=== PATIENT | male | born 1975 | race Caucasian/White ===

== ENCOUNTER 2016-03-04 13:00 | Observation (INO) | payer MEDICARE ==
[2016-03-04] MEDS ORDERED: FAMOTIDINE 20 MG/2 ML VIAL IV STA (13:44)
[2016-03-04] MEDS ORDERED: METOCLOPRAMIDE 5 MG/ML 2 ML VIAL IVP STA (13:44)
[2016-03-04] MEDS ORDERED: SODIUM CHLORIDE 0.9% 1,000 ML IV STA (13:44)
--- NOTE | 2016-03-04 13:48 | ED ---
General Adult HPI - General Source: patient, RN notes reviewed Mode of arrival: ambulatory Limitations: no limitations <Adriana Whelan - Last Filed: 03/04/16 15:53> <Glenroy Jordan - Last Filed: 03/04/16 15:57> - General Chief complaint: Abdominal Pain Stated complaint: Vomiting Blood, Abd Pain Time Seen by Provider: 03/04/16 13:37 - History of Present Illness Initial comments: 40-year-old male presents to the emergency department with a chief complaint of nausea vomiting with blood. Patient states he was seen here about a month ago for this. They were unable to do an EGD at that times whenever found a cause for the blood was coming from. Patient's old. Patient states she was given follow-up however they had to change his appointment. Patient states that about a week ago he started to vomit again he is having bright red blood with some dark chocolate like vomit. Patient states he has abdominal pain is unable to keep anything down. Patient states he is chronically on pain medication as well he has not had this for about 4 days vomiting. Patient states he has some epigastric abdominal pain. Patient denies any fever chills with this. Patient states he was concerned due to the fact he cannot keep anything down that he should be seen. Patient denies any recent fever, chills, shortness of breath, chest pain, back pain, numbness or tingling, dysuria or hematuria, constipation or diarrhea, headaches or visual changes, or any other current symptoms. (Adriana Whelan) - Related Data Home Medications Medication Instructions Recorded Confirmed Morphine Sulfate ER [Ms Contin] 60 mg PO TID PRN 10/21/13 03/04/16 Folic Acid 0.8 mg PO DAILY 03/04/16 03/04/16 Liquid Iron Supplement 24 ml PO BID 03/04/16 03/04/16 Vitamin B Complex 1 cap PO DAILY 03/04/16 03/04/16 Previous Rx's Medication Instructions Recorded Pantoprazole [Protonix] 40 mg PO BID #60 tablet. 02/07/16 Sucralfate [Carafate] 1 gm PO ACHS #120 tab 02/07/16 Allergies Allergy/AdvReac Type Severity Reaction Status Date / Time No Known Allergies Allergy Verified 03/04/16 13:48 Review of Systems ROS Other: All systems not noted in ROS Statement are negative. <Adriana Whelan - Last Filed: 03/04/16 15:53> ROS Other: All systems not noted in ROS Statement are negative. <Glenroy Jordan - Last Filed: 03/04/16 15:57> ROS Statement: Those systems with pertinent positive or pertinent negative responses have been documented in the HPI. Past Medical History Past Medical History: GI Bleed, Hypertension, Liver Disease, Thyroid Disorder Additional Past Medical History / Comment(s): back, legs and feet pain due to spinal stenosis , pancreatrits History of Any Multi-Drug Resistant Organisms: None Reported Past Surgical History: Appendectomy, Back Surgery Past Anesthesia/Blood Transfusion Reactions: No Reported Reaction Past Psychological History: No Psychological Hx Reported Smoking Status: Current every day smoker Past Alcohol Use History: Heavy Past Drug Use History: None Reported - Past Family History Father Family Medical History: No Reported History <Adriana Whelan - Last Filed: 03/04/16 15:53> General Exam Limitations: no limitations <Adriana Whelan - Last Filed: 03/04/16 15:53> <Glenroy Jordan - Last Filed: 03/04/16 15:57> - General Exam Comments Initial Comments: General: The patient is awake and alert, in no distress, and does not appear acutely ill. Eye: Pupils are equal, round and reactive to light, extra-ocular movements are intact; there is normal conjunctiva bilaterally. No signs of icterus. Ears, nose, mouth and throat: There are moist mucous membranes. Neck: The neck is supple, there is no tenderness. Cardiovascular: There is a regular rate and rhythm. No murmur, rub or gallop is appreciated. Respiratory: Lungs are clear to auscultation, respirations are non-labored, breath sounds are equal. No wheezes, stridor, rales, or rhonchi. Gastrointestinal: Soft, non-distended, non-tender abdomen without masses or organomegaly noted. There is no rebound or guarding present. No CVA tenderness. Bowel sounds are unremarkable. Back: There is no tenderness to palpation in the midline. There is no obvious deformity. No rashes noted. Musculoskeletal: Normal ROM, no tenderness, There is no pedal edema. There is no calf tenderness or swelling. Sensation intact. Pulses equal bilaterally 2+. Neurological: CN II-XII intact, There are no obvious motor or sensory deficits. Coordination appears grossly intact. Speech is normal. Skin: Skin is warm and dry and no rashes or lesions are noted. Psychiatric: Cooperative, appropriate mood & affect, normal judgment. (Adriana Whelan) Course <Adriana Whelan - Last Filed: 03/04/16 15:53> <Glenroy Jordan - Last Filed: 03/04/16 15:57> Vital Signs 03/04/16 03/04/16 13:27 15:29 Temperature 99.4 F 98.3 F Pulse Rate 73 71 Respiratory 20 18 Rate Blood Pressure 114/72 132/85 O2 Sat by Pulse 100 100 Oximetry - Reevaluation(s) Reevaluation #1: 03/04/16 15:19 Patient is requesting pain medication this time. Patient states the vomiting is undergoing concerning to him affect is unable to take his pain medication is really why he is here. (Adriana Whelan) Medical Decision Making - Lab Data Result diagrams: 03/04/16 13:49 03/04/16 13:49 - Radiology Data Radiology results: report reviewed, image reviewed <Adriana Whelan - Last Filed: 03/04/16 15:53> - Lab Data Result diagrams: 03/04/16 13:49 03/04/16 13:49 <Glenroy Jordan - Last Filed: 03/04/16 15:57> - Medical Decision Making 40-year-old male presents emergency Department chief complaint of vomiting up blood. Patient has a history of this. Patient's previous admission was reviewed. At this time the previous admission increases from esophageal varices. At this time patient did present with vomiting up blood. He has had no vomiting here and has had improvement with symptoms. Due to the concern for possible esophageal varices with no confirmation with an EGD at this time we do recommend admission for the patient for continued observation for the vomiting of blood. We'll consult the patient's GI doctor Dr. Smart to evaluate the patient further. Discussed with the patient is in agreement with the plan. ( Adriana Whelan) Patient reevaluated by myself, Dr. Jordan. Patient resting comfortably in bed. Patient does have mild to moderate epigastric tenderness. Patient has started vomiting the past couple of days including blood. Patient was unable to have scope done on recent visit. Last endoscopy was over 2 years ago. Patient will be admitted for monitoring and possible EGD. Gastrology will be consult. Case discussed in detail with Dr. Walters, covering for tab Amos who will admit. (Glenroy Jordan) - Lab Data Lab Results 03/04/16 03/04/16 03/04/16 Range/Units 13:49 13:49 13:49 WBC (3.8-10.6) k/uL RBC (4.30-5.90) m/uL Hgb (13.0-17.5) gm/dL Hct (39.0-53.0) % MCV (80.0-100.0) fL MCH (25.0-35.0) pg MCHC (31.0-37.0) g/dL RDW (11.5-15.5) % Plt Count (150-450) k/uL Neutrophils % % Lymphocytes % % Monocytes % % Eosinophils % % Basophils % % Neutrophils # (1.3-7.7) k/uL Lymphocytes # (1.0-4.8) k/uL Monocytes # (0-1.0) k/uL Eosinophils # (0-0.7) k/uL Basophils # (0-0.2) k/uL PT 12.8 H (9.0-12.0) sec INR 1.3 (<1.1) APTT 25.5 (22.0-30.0) sec Sodium 143 (137-145) mmol/L Potassium 4.1 (3.5-5.1) mmol/L Chloride 106 (98-107) mmol/L Carbon Dioxide 22 (22-30) mmol/L Anion Gap 15 mmol/L BUN 11 (9-20) mg/dL Creatinine 0.82 (0.66-1.25) mg/dL Est GFR (MDRD) Af Amer >60 (>60 ml/min/1.73 sqM) Est GFR (MDRD) Non-Af >60 (>60 ml/min/1.73 sqM) Glucose 205 H (74-99) mg/dL Calcium 9.1 (8.4-10.2) mg/dL Total Bilirubin 1.6 H (0.2-1.3) mg/dL AST 57 (17-59) U/L ALT 39 (21-72) U/L Alkaline Phosphatase 73 (38-126) U/L Total Protein 7.4 (6.3-8.2) g/dL Albumin 3.8 (3.5-5.0) g/dL Amylase 70 (30-110) U/L Lipase 172 (23-300) U/L Urine Color Urine Appearance (Clear) Urine pH (5.0-8.0) Ur Specific [place] (1.001-1.035) Urine Protein (Negative) Urine Glucose (UA) (Negative) Urine Ketones (Negative) Urine Blood (Negative) Urine Nitrate (Negative) Urine Bilirubin (Negative) Urine Urobilinogen (<2.0) mg/dL Ur Leukocyte Esterase (Negative) Blood Type O Negative Blood Type Recheck No Antibody Screen NEGATIVE Spec Expiration Date 03/07/2016 - 234803/04/16 03/04/16 Range/Units 13:49 15:16 WBC 6.1 (3.8-10.6) k/uL RBC 4.05 L (4.30-5.90) m/uL Hgb 13.0 D (13.0-17.5) gm/dL Hct 38.8 L (39.0-53.0) % MCV 95.6 (80.0-100.0) fL MCH 32.1 (25.0-35.0) pg MCHC 33.5 (31.0-37.0) g/dL RDW 13.8 (11.5-15.5) % Plt Count 66 L D (150-450) k/uL Neutrophils % 76 % Lymphocytes % 15 % Monocytes % 5 % Eosinophils % 3 % Basophils % 1 % Neutrophils # 4.6 (1.3-7.7) k/uL Lymphocytes # 0.9 L (1.0-4.8) k/uL Monocytes # 0.3 (0-1.0) k/uL Eosinophils # 0.2 (0-0.7) k/uL Basophils # 0.0 (0-0.2) k/uL PT (9.0-12.0) sec INR (<1.1) APTT (22.0-30.0) sec Sodium (137-145) mmol/L Potassium (3.5-5.1) mmol/L Chloride (98-107) mmol/L Carbon Dioxide (22-30) mmol/L Anion Gap mmol/L BUN (9-20) mg/dL Creatinine (0.66-1.25) mg/dL Est GFR (MDRD) Af Amer (>60 ml/min/1.73 sqM) Est GFR (MDRD) Non-Af (>60 ml/min/1.73 sqM) Glucose (74-99) mg/dL Calcium (8.4-10.2) mg/dL Total Bilirubin (0.2-1.3) mg/dL AST (17-59) U/L ALT (21-72) U/L Alkaline Phosphatase (38-126) U/L Total Protein (6.3-8.2) g/dL Albumin (3.5-5.0) g/dL Amylase (30-110) U/L Lipase (23-300) U/L Urine Color Light Yellow Urine Appearance Clear (Clear) Urine pH 6.5 (5.0-8.0) Ur Specific [place] 1.003 (1.001-1.035) Urine Protein Negative (Negative) Urine Glucose (UA) Negative (Negative) Urine Ketones Negative (Negative) Urine Blood Negative (Negative) Urine Nitrate Negative (Negative) Urine Bilirubin Negative (Negative) Urine Urobilinogen <2.0 (<2.0) mg/dL Ur Leukocyte Esterase Negative (Negative) Blood Type Blood Type Recheck Antibody Screen Spec Expiration Date Disposition Time of Disposition: 15:51 Decision Date: 03/04/16 Decision Time: 15:51 <Adriana Whelan - Last Filed: 03/04/16 15:53> <Glenroy Jordan - Last Filed: 03/04/16 15:57> Clinical Impression: GI bleed, Nausea & vomiting, Chronic pain Disposition: ADMITTED IP TO THIS [facility] Condition: Stable Referrals: Pablo Linn MD [Primary Care Provider] - 1-2 days
[2016-03-04 14:20] LABS: INR 1.3 (<1.1); Partial Thromboplastin Time 25.5 sec (22.0-30.0); Prothrombin Time 12.8 sec (9.0-12.0)
--- NOTE | 2016-03-04 14:25 | XR ---
EXAMINATION TYPE: XR abdomen 2V DATE OF EXAM: 03/04/2016 2:11 PM COMPARISON: NONE INDICATION: Pain, vomiting blood TECHNIQUE: Frontal view abdomen upright and supine abdomen FINDINGS: There is a nonspecific bowel gas pattern. Small bowel gas and colonic bowel gas is present. Psoas mar gins are normal. Splenomegaly may be present. Some prominent liver may also be present. IMPRESSION: 1. Nonspecific abdomen. 2. Hepatosplenomegaly
[2016-03-04 14:28] LABS: ALT 39 U/L (21-72); AST 57 U/L (17-59); Alkaline Phosphatase 73 U/L (38-126); Amylase 70 U/L (30-110); Anion Gap 15 mmol/L; Blood Urea Nitrogen 11 mg/dL (9-20); Calcium 9.1 mg/dL (8.4-10.2); Carbon Dioxide 22 mmol/L (22-30); Chloride 106 mmol/L (98-107); Glucose 205 mg/dL (74-99); Non-African American GFR(MDRD) >60 (>60 ml/min/1.73 sqM); Potassium 4.1 mmol/L (3.5-5.1); Sodium 143 mmol/L (137-145); Total Bilirubin 1.6 mg/dL (0.2-1.3); Total Protein 7.4 g/dL (6.3-8.2)
[2016-03-04 14:29] LABS: Basophils % (A) 1 %; CH 31.8; CHCM 33.4; Eosinophils # (A) 0.2 k/uL (0-0.7); Eosinophils % (A) 3 %; HCT 38.8 % (39.0-53.0); HDW 2.36; Luc # (Auto) 0.08; Luc % (Auto) 1; Lymphocytes # (A) 0.9 k/uL (1.0-4.8); Lymphocytes % (A) 15 %; MCH 32.1 pg (25.0-35.0); MCHC 33.5 g/dL (31.0-37.0); MCV 95.6 fL (80.0-100.0); Mean Platelet Volume 8.6; Monocytes # (A) 0.3 k/uL (0-1.0); Monocytes % (A) 5 %; Neutrophils # (A) 4.6 k/uL (1.3-7.7); Neutrophils % (A) 76 %; RBC 4.05 m/uL (4.30-5.90); RDW 13.8 % (11.5-15.5); WBC 6.1 k/uL (3.8-10.6); WBC (Perox) 6.23
[2016-03-04] MEDS ORDERED: MORPHINE SULFATE 4 MG/ML SYRINGE IV STA (15:18)
[2016-03-04 15:43] LABS: Appearance,Urine Clear (Clear); Bilirubin,Urine Negative (Negative); Glucose,Urine (UA) Negative (Negative); Ketones,Urine Negative (Negative); Leukocyte Esterase,Urine Negative (Negative); Nitrite,Urine Negative (Negative); PH, Urine 6.5 (5.0-8.0); Protein,Urine Negative (Negative); Specific Gravity,Urine 1.003 (1.001-1.035); UA Billing (MACRO vs. MICRO) CHEM; Urobilinogen,Urine <2.0 mg/dL (<2.0)
[2016-03-04] MEDS ORDERED: ONDANSETRON 4 MG/2 ML VIAL IVP PRN (15:51)
[2016-03-04] MEDS ORDERED: NALOXONE 0.4 MG/ML 1 ML VIAL IV PRN (15:51)
[2016-03-04] MEDS: SODIUM CHLORIDE 0.9% 1,000 ML IV SCH (16:24)
[2016-03-04] MEDS: MORPHINE SULFATE ER 60 MG TABLET PO PRN (17:17)
[2016-03-04 18:10] VITALS: BMI 22.1
[2016-03-04] MEDS: SUCRALFATE 1 GM TAB PO SCH ×2 (18:19→20:45)
[2016-03-04] MEDS ORDERED: PANTOPRAZOLE 40 MG TABLET PO SCH (21:00)
[2016-03-05] MEDS: MORPHINE SULFATE ER 60 MG TABLET PO PRN ×3 (01:37→16:52)
[2016-03-05] MEDS: SODIUM CHLORIDE 0.9% 1,000 ML IV SCH ×3 (06:59→23:33)
[2016-03-05] MEDS: SUCRALFATE 1 GM TAB PO SCH (08:00)
[2016-03-05] MEDS: FERROUS SULFATE ORAL ELIXIR 300 MG/5 ML CUP PO SCH ×2 (08:00→16:52)
[2016-03-05] MEDS ORDERED: PANTOPRAZOLE 40 MG/10 ML VIAL IV SCH (09:00)
[2016-03-05 09:09] LABS: Basophils % (A) 1 %; CH 31.6; CHCM 32.8; Eosinophils # (A) 0.2 k/uL (0-0.7); Eosinophils % (A) 5 %; HDW 2.39; Luc # (Auto) 0.07; Luc % (Auto) 3; Lymphocytes # (A) 0.9 k/uL (1.0-4.8); Lymphocytes % (A) 31 %; MCH 31.3 pg (25.0-35.0); MCHC 32.4 g/dL (31.0-37.0); MCV 96.6 fL (80.0-100.0); Mean Platelet Volume 8.9; Monocytes # (A) 0.2 k/uL (0-1.0); Monocytes % (A) 5 %; Neutrophils # (A) 1.6 k/uL (1.3-7.7); Neutrophils % (A) 56 %; RBC 3.52 m/uL (4.30-5.90); RDW 13.5 % (11.5-15.5); WBC 2.9 k/uL (3.8-10.6); WBC (Perox) 3.16
[2016-03-05 09:43] LABS: ALT 44 U/L (21-72); AST 55 U/L (17-59); Alkaline Phosphatase 62 U/L (38-126); Anion Gap 11 mmol/L; Blood Urea Nitrogen 9 mg/dL (9-20); Calcium 8.2 mg/dL (8.4-10.2); Carbon Dioxide 22 mmol/L (22-30); Chloride 111 mmol/L (98-107); Glucose 93 mg/dL (74-99); Non-African American GFR(MDRD) >60 (>60 ml/min/1.73 sqM); Potassium 3.8 mmol/L (3.5-5.1); Sodium 144 mmol/L (137-145); Total Bilirubin 1.9 mg/dL (0.2-1.3); Total Protein 6.2 g/dL (6.3-8.2)
--- NOTE | 2016-03-05 10:54 | P.CONS ---
History of Present Illness - Reason for Consult Consult date: 03/05/16 Abdominal pain hematemesis/coffee-ground Requesting physician: Precious Mchugh - History of Present Illness 40-year-old gentleman with a history of EtOH abuse, pancreatitis, hypertension, nicotine cigarette dependency, alcohol liver disease, cirrhosis with portal hypertension with history of GI bleeding presents with epigastric pain with hematemesis/coffee ground mixed emesis. Denies fever, chills, weight loss. Recently hospitalized one month ago regarding similar symptoms but no EGD was performed secondary to resolution of symptoms and stabilization of hemoglobin. EGD November 2013 show portal gastropathy with no varices. Denies active alcohol intake it's been at least 2 years since his last drink. Hemoglobin 13.0 currently 11. Platelet 54,000. INR 1.3. BUN 9. Creatinine 0.7. A month ago hemoglobin was 11.2, dropped to 6.9 received 2 units of blood and on discharge 02/07/2016 was 9.7. He has been taking Protonix and Carafate. Additionally reports intermittent nausea sour stomach feeling for the last few months. Provided antinausea medications by GI office but ran out a week ago. Over the last week having a few daily episodes of red tinge black emesis exacerbated more so yesterday. No NSAIDs or aspirin. Review of Systems All systems: negative (See HPI) Past Medical History Past Medical History: GI Bleed, Hypertension, Liver Disease, Thyroid Disorder Additional Past Medical History / Comment(s): back, legs and feet pain due to spinal stenosis , pancreatitis, [place] 2009 History of Any Multi-Drug Resistant Organisms: None Reported Past Surgical History: Appendectomy, Back Surgery Past Anesthesia/Blood Transfusion Reactions: No Reported Reaction Past Psychological History: No Psychological Hx Reported Smoking Status: Former smoker Past Alcohol Use History: Heavy Additional Past Alcohol Use History / Comment(s): quit etoh in 2013. quit cigarettes in 02/14, now smoking e-cigs Past Drug Use History: None Reported - Past Family History Father Family Medical History: No Reported History Medications and Allergies Home Medications Medication Instructions Recorded Confirmed Type Morphine Sulfate ER [Ms Contin] 60 mg PO TID PRN 10/21/13 03/04/16 History Folic Acid 0.8 mg PO DAILY 03/04/16 03/04/16 History Liquid Iron Supplement 24 ml PO BID 03/04/16 03/04/16 History Vitamin B Complex 1 cap PO DAILY 03/04/16 03/04/16 History Allergies Allergy/AdvReac Type Severity Reaction Status Date / Time No Known Allergies Allergy Verified 03/04/16 18:11 Physical Exam Vitals: Vital Signs Temp Pulse Pulse Resp BP BP Pulse Ox 03/05/16 06:21 97.3 F L 66 18 114/69 94 L 03/04/16 23:00 97.5 F L 59 L 18 122/77 98 03/04/16 18:05 97.6 F 63 20 129/85 99 03/04/16 17:19 98.0 F 73 18 129/76 99 Intake and Output 03/04/16 03/05/16 03/05/16 22:59 06:59 14:59 Intake Total 1100 Output Total 275 150 Balance -275 950 Intake: IV 1100 Sodium Chloride 0.9% 1, 1100 000 ml @ 100 mls/hr IV . Q10H [facility] Rx#:[id number] Output: Urine 275 150 Other: Voiding Method Urinal Urinal Weight 68.039 kg General appearance: The patient is alert, oriented, in no acute distress. HET: Head is normocephalic and atraumatic. Pupils are equal and reactive. Oropharynx is clear without lesions. Neck: Supple without lymphadenopathy. Trachea midline. Heart: S1 S2. Regular rate and rhythm. Lungs: No crackles or wheezes are heard. Abdomen: Soft, midepigastric tenderness, nondistended with bowel sounds. No peritoneal signs. No palpable organomegaly or masses. Extremities: Normal skin color and turgor. No cyanosis, rash, ulceration, clubbing, or edema. Radial and pedal pulses are 2/4 bilaterally. Neurological: No focal deficits. Strength and sensation are grossly intact. Results CBC & Chem 7: 03/05/16 08:37 03/05/16 08:37 Labs: Abnormal Lab Results - Last 24 Hours (Table) 03/05/16 03/05/16 Range/Units 08:37 08:37 WBC 2.9 L (3.8-10.6) k/uL RBC 3.52 L (4.30-5.90) m/uL Hgb 11.0 L (13.0-17.5) gm/dL Hct 34.0 L (39.0-53.0) % Plt Count 54 L (150-450) k/uL Lymphocytes # 0.9 L (1.0-4.8) k/uL Chloride 111 H (98-107) mmol/L Calcium 8.2 L (8.4-10.2) mg/dL Total Bilirubin 1.9 H (0.2-1.3) mg/dL Total Protein 6.2 L (6.3-8.2) g/dL Albumin 2.9 L (3.5-5.0) g/dL Assessment and Plan Plan: Acute GI bleed with a history of alcohol liver disease portal hypertension, portal gastropathy, thrombocytopenia with remote EtOH abuse. Rule out peptic ulcer disease rule out esophageal varices. Plan: 1. EGD. 2. IV Protonix 40 mg twice daily. Hold Carafate until EGD is completed. 3. Monitor CBC closely. The marketing research coordinator has discussed the risks, benefits and alternative therapies for the above-mentioned procedure and for both sedation/analgesia as well as necessary blood product administration, if indicated, as they pertain to this patient. The patient has indicated understanding and acceptance of the risks and procedures discussed. Thank you for this kind referral and the opportunity to participate in the care of your patient. This consultation was discussed with Dr. Leiva. The impression and plan of care have been directed as dictated.
[2016-03-05] MEDS: FOLIC ACID 1 MG TAB PO SCH (11:19)
[2016-03-05] MEDS: B COMPLEX-VIT C-VIT E-ZINC 1 EACH TAB PO SCH (11:19)
--- NOTE | 2016-03-05 15:07 | P.HPIM ---
History of Present Illness H&P Date: 03/05/16 Chief Complaint: GI bleed This is a 40-year-old male patient of Dr. Sarmad Linn. He has history of alcohol liver cirrhosis with portal hypertension and previous GI bleeding, hypertension and gastritis, pancreatitis. He is also known to Dr. Smart from previous EGDs in the past. This was last performed in 2013 without any evidence off esophageal varices. He states his last alcohol ingestion was January 2016 which time he was admitted for acute GI bleed otherwise he has been without alcohol for 2-1/2 years. He states that he started vomiting blood and was up to half a cup. He denies any alcohol use in the past week. He states he has had increasing nausea lately and did have antiemetic at home. He states he tried to call his GI doctor for refill but did not hear back. He states he has not been able to eat for the past 4 days. He denies any nonsteroidal anti-inflammatory or aspirin use. He presented to [facility] emergency center with the above. Initial hemoglobin was 13 and repeat at 11, platelet count 54, INR 1.3, BUN 9, creatinine 0.7. He was admitted to the [facility] floor and placed on pain medication as well as Zofran for nausea which is been increased every 4 hours, Protonix and IV fluids. Consult requested with animal caretaker and patient is scheduled for EGD tomorrow. He is currently on a clear liquid diet. Review of Systems All systems: negative Constitutional: Denies chills, Denies fever Eyes: denies blurred vision, denies pain Ears, nose, mouth and throat: Denies headache, Denies sore throat Cardiovascular: Denies chest pain, Denies shortness of breath Respiratory: Denies cough Gastrointestinal: Reports abdominal pain, Reports nausea, Reports vomiting, Denies diarrhea Musculoskeletal: Denies myalgias Integumentary: Denies pruritus, Denies rash Neurological: Denies numbness, Denies weakness Psychiatric: Denies anxiety, Denies depression Endocrine: Denies fatigue, Denies weight change Past Medical History Past Medical History: GI Bleed, Hypertension, Liver Disease, Thyroid Disorder Additional Past Medical History / Comment(s): back, legs and feet pain due to spinal stenosis , pancreatitis, [place] 2009 History of Any Multi-Drug Resistant Organisms: None Reported Past Surgical History: Appendectomy, Back Surgery Past Anesthesia/Blood Transfusion Reactions: No Reported Reaction Past Psychological History: No Psychological Hx Reported Smoking Status: Former smoker Past Alcohol Use History: Heavy Additional Past Alcohol Use History / Comment(s): quit etoh in 2013 and had 1 relapse in January 2016. quit cigarettes in 02/14, now smoking e-cigs. He denies any drug use. He is currently disabled since 2009 due to back pain and spinal stenosis. Past Drug Use History: None Reported - Past Family History Father Family Medical History: No Reported History Medications and Allergies Home Medications Medication Instructions Recorded Confirmed Type Morphine Sulfate ER [Ms Contin] 60 mg PO TID PRN 10/21/13 03/04/16 History Folic Acid 0.8 mg PO DAILY 03/04/16 03/04/16 History Liquid Iron Supplement 24 ml PO BID 03/04/16 03/04/16 History Vitamin B Complex 1 cap PO DAILY 03/04/16 03/04/16 History Allergies Allergy/AdvReac Type Severity Reaction Status Date / Time No Known Allergies Allergy Verified 03/04/16 18:11 Physical Exam Vitals: Vital Signs Temp Pulse Pulse Resp BP BP Pulse Ox 03/05/16 06:21 97.3 F L 66 18 114/69 94 L 03/04/16 23:00 97.5 F L 59 L 18 122/77 98 03/04/16 18:05 97.6 F 63 20 129/85 99 03/04/16 17:19 98.0 F 73 18 129/76 99 Intake and Output 03/04/16 03/05/16 03/05/16 22:59 06:59 14:59 Intake Total 1100 Output Total 275 150 300 Balance -275 950 -300 Intake: IV 1100 Sodium Chloride 0.9% 1, 1100 000 ml @ 100 mls/hr IV . Q10H [facility] Rx#:[id number] Output: Urine 275 150 300 Other: Voiding Method Urinal Urinal # Voids 1 Weight 68.039 kg Gen: This is a 30-year-old male. He is sitting up in bed appears to be in no acute distress. HEENT: Head is atraumatic, normocephalic. Pupils equal, round. Sclerae is anicteric. NECK: Supple. No JVD. No lymphadenopathy. No thyromegaly. LUNGS: Clear to auscultation. No wheezes or rhonchi. No intercostal retractions. HEART: Regular rate and rhythm. No murmur. ABDOMEN: Soft. Bowel sounds are present. No masses. Mid epigastric tenderness. EXTREMITIES: No pedal edema. No calf tenderness. NEUROLOGICAL: Patient is awake, alert and oriented x3. Cranial nerves 2 through 12 are grossly intact. Results CBC & Chem 7: 03/05/16 08:37 03/05/16 08:37 Labs: Abnormal Lab Results - Last 24 Hours (Table) 03/05/16 03/05/16 Range/Units 08:37 08:37 WBC 2.9 L (3.8-10.6) k/uL RBC 3.52 L (4.30-5.90) m/uL Hgb 11.0 L (13.0-17.5) gm/dL Hct 34.0 L (39.0-53.0) % Plt Count 54 L (150-450) k/uL Lymphocytes # 0.9 L (1.0-4.8) k/uL Chloride 111 H (98-107) mmol/L Calcium 8.2 L (8.4-10.2) mg/dL Total Bilirubin 1.9 H (0.2-1.3) mg/dL Total Protein 6.2 L (6.3-8.2) g/dL Albumin 2.9 L (3.5-5.0) g/dL Thrombosis Risk Factor Assmnt - DVT/VTE Prophylaxis DVT/VTE Prophylaxis: Mechanical Prophylaxis ordered - Choose All That Apply Each Factor Represents 1 point: Age 41-60 years Thrombosis Risk Factor Assessment Total Risk Factor Score: 1 Thrombosis Risk Factor Assessment Level: Low Risk Assessment and Plan Plan: 1. Acute blood loss anemia secondary to GI bleed most likely upper GI source. Continue clear liquid diet. Continue Zofran for nausea and vomiting increased frequency to every 4 hours. Continue Protonix 40 mg every 12 hours. Consult with GI is appreciated. Patient scheduled for EGD tomorrow 2. Alcoholic liver cirrhosis 3. Recent NSAID gastropathy. 4. History of heavy alcohol use with last relapse early January 2016. No recent alcohol intake. 5. Chronic thrombocytopenia secondary to cirrhosis of the liver. 6. History of pancreatitis in the past currently stable 7. DVT prophylaxis patient's low risk for DVT, early ambulation is recommended , caprini score is 1 8. Coagulopathy secondary to cirrhosis of liver and is currently at 1.5 continue to monitor 9. GI prophylaxis patient will be on Protonix 40 mg twice a day 10. Chronic pain follows with the pain clinic on morphine ER 60 every 8 hours when necessary as an outpatient 11. Pancytopenia with cytopenia due to splenic sequestration from EtOH liver cirrhosis and leukopenia from EtOH bone marrow suppression. Patient will be admitted to the hospital for a minimum of 2 night stay. Discharge plan: Possibly home tomorrow after EGD Impression and plan of care have been directed as dictated by the signing physician. Giovana Kathleen nurse practitioner acting as scribe for signing physician. Time with Patient: Greater than 30
[2016-03-05 16:11] VITALS: RESP 16
[2016-03-05] MEDS: PANTOPRAZOLE 40 MG/10 ML VIAL IV SCH (20:43)
[2016-03-05] MEDS: ONDANSETRON 4 MG/2 ML VIAL IVP PRN (20:47)
[2016-03-06] MEDS: MORPHINE SULFATE ER 60 MG TABLET PO PRN ×3 (01:13→14:21)
[2016-03-06] MEDS: PANTOPRAZOLE 40 MG/10 ML VIAL IV SCH (07:57)
[2016-03-06] MEDS: SODIUM CHLORIDE 0.9% 1,000 ML IV SCH (07:58)
[2016-03-06] MEDS: FERROUS SULFATE ORAL ELIXIR 300 MG/5 ML CUP PO SCH (08:02)
[2016-03-06] MEDS: ONDANSETRON 4 MG/2 ML VIAL IVP PRN (08:06)
[2016-03-06 08:33] VITALS: BP 120/75; PULSE 65; TEMP 97.4
[2016-03-06 09:01] LABS: CH 31.8; CHCM 32.6; HCT 35.3 % (39.0-53.0); HDW 2.46; HGB 11.3 gm/dL (13.0-17.5); MCH 31.4 pg (25.0-35.0); MCHC 32.1 g/dL (31.0-37.0); Mean Platelet Volume 8.8; RDW 13.5 % (11.5-15.5); WBC 2.6 k/uL (3.8-10.6)
[2016-03-06 09:12] LABS: ALT 43 U/L (21-72); AST 59 U/L (17-59); Alkaline Phosphatase 60 U/L (38-126); Anion Gap 12 mmol/L; Blood Urea Nitrogen 8 mg/dL (9-20); Calcium 8.4 mg/dL (8.4-10.2); Carbon Dioxide 22 mmol/L (22-30); Chloride 111 mmol/L (98-107); Glucose 88 mg/dL (74-99); Non-African American GFR(MDRD) >60 (>60 ml/min/1.73 sqM); Potassium 4.1 mmol/L (3.5-5.1); Sodium 145 mmol/L (137-145); Total Bilirubin 1.9 mg/dL (0.2-1.3); Total Protein 6.2 g/dL (6.3-8.2)
[2016-03-06] MEDS ORDERED: LIDOCAINE 1% INJ 10MG/ML (20 ML MDV) ONE (09:29)
[2016-03-06] MEDS ORDERED: PROPOFOL 10 MG/ML 20 ML VIAL IV ONE (09:29)
[2016-03-06] MEDS ORDERED: GLYCOPYRROLATE 0.2 MG/ML 2 ML VIAL ONE (09:29)
[2016-03-06] MEDS ORDERED: IV FLUID CONTINUATION 1,000 ML IV ONE (09:31)
--- NOTE | 2016-03-06 09:45 | P.PCN ---
Date of Procedure: 03/06/16 Procedure(s) Performed: BRIEF HISTORY: Patient is a 40-year-old, pleasant, white male, admitted to the hospital with acute upper GI bleed. He had multiple episodes of maroon colored stools. Last hemoglobin was 7.3 g/dL. He scheduled for an upper endoscopy to evaluate the recent source of upper GI bleed PROCEDURE PERFORMED: Esophagogastroduodenoscopy with variceal ligation PREOPERATIVE DIAGNOSIS: Acute upper GI bleed. IV sedation per anesthesia. PROCEDURE: After informed consent was obtained, the patient was brought into the endoscopy unit. IV conscious sedation was administered by Anesthesia under continuous monitoring. Initially the Olympus GIF-140 video endoscope was inserted into the mouth. Esophagus intubated without any difficulty. It was gradually advanced into the stomach and duodenum and carefully examined. The bulb and the second part of the duodenum appeared normal. The scope at this time was withdrawn to the stomach, adequately insufflated with air, and upon careful examination, mucosa of the antrum, body, cardia and the fundus appeared normal. Mild portal hypertensive gastropathy identified and the fundus of the stomach. The scope was then withdrawn into the esophagus. The GE junction was located at 39 cm from the incisors. There was one esophageal varix identified extending into the GE junction and there was a small brown spot suspicious for recent source of GI bleed but no active bleeding identified. The rest of the esophagus appeared normal. There were no erosions or ulcerations seen and the patient tolerated the procedure well. At this time esophageal variceal ligation equipment was introduced onto the tip of the scope and esophagus reintubated without any difficulty and was gradually advanced into the distal esophagus. The esophageal variceal column located at the GE junction was ligated using suction and another band was also deployed in the distal esophagus. No other varices identified. Patient tolerated the procedure well. IMPRESSION: 1. Grade 1 esophageal varices at the GE junction and distal esophagus status post variceal ligation as described above. 2. Mild portal hypertensive gastropathy.. RECOMMENDATIONS: The findings of this examination were discussed with the patient . He'll be started on clear liquids and diet will be advanced as tolerated. If he remains stable he can be discharged home later today or tomorrow. He was advised to follow up in outpatient basis in 2 weeks.
[2016-03-06] MEDS ORDERED: LACTATED RINGERS 1,000 ML IV SCH (12:22)
[2016-03-06] MEDS: B COMPLEX-VIT C-VIT E-ZINC 1 EACH TAB PO SCH (12:40)
[2016-03-06] MEDS: FOLIC ACID 1 MG TAB PO SCH (12:40)
--- NOTE | 2016-03-06 14:05 | P.DS ---
Providers Date of admission: 03/04/16 15:52 Expected date of discharge: 03/06/16 Attending physician: Precious Mchugh Consults: 03/04/16 15:53 Consult Physician Routine Consulting Provider: Titus Smart Consult Reason/Comments: GI bleed Do you want consulting provider notified?: Yes Primary care physician: [facility] Course: This is a 40-year-old male patient of Dr. Sarmad Linn. He has history of alcohol liver cirrhosis with portal hypertension and previous GI bleeding, hypertension and gastritis, pancreatitis. He is also known to Dr. Smart from previous EGDs in the past. This was last performed in 2013 without any evidence off esophageal varices. He states his last alcohol ingestion was January 2016 which time he was admitted for acute GI bleed otherwise he has been without alcohol for 2-1/2 years. He states that he started vomiting blood and was up to half a cup. He denies any alcohol use in the past week. He states he has had increasing nausea lately and did have antiemetic at home. He states he tried to call his GI doctor for refill but did not hear back. He states he has not been able to eat for the past 4 days. He denies any nonsteroidal anti-inflammatory or aspirin use. He presented to [facility] emergency center with the above. Initial hemoglobin was 13 and repeat at 11, platelet count 54, INR 1.3, BUN 9, creatinine 0.7. He was admitted to the [facility] floor and placed on pain medication as well as Zofran for nausea which is been increased every 4 hours, Protonix and IV fluids. Consult requested with acquisition associate and patient is scheduled for EGD tomorrow. He is currently on a clear liquid diet. 03/06: Patient underwent EGD that showed Grade 1 esophageal varices at the GE junction and distal esophagus status post variceal ligation and mild portal hypertensive gastropathy. Recommendations from Dr. Leiva are clear liquids and diet will be advanced as tolerated. If he remains stable he can be discharged home later today or tomorrow. Repeat hemoglobin is 11.3, white count 2.6 and platelet count 56, total bilirubin 1.9. Patient will be discharged home today in stable condition. Patient will be provided a prescription for Zofran. Patient did request [facility] refill on his morphine and he was instructed to follow -up with his pain clinic. Discharge diagnoses: 1. Acute blood loss anemia secondary to GI bleed most likely due to esophageal varices. 2. Alcoholic liver cirrhosis 3. Recent NSAID gastropathy. 4. History of heavy alcohol use with last relapse early January 2016. No recent alcohol intake. 5. Chronic thrombocytopenia secondary to cirrhosis of the liver. 6. History of pancreatitis in the past currently stable 7. Coagulopathy secondary to cirrhosis of liver and is currently at 1.5 continue to monitor 8. Chronic pain follows with the pain clinic 9. 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 Discharge plan: home Impression and plan of care have been directed as dictated by the signing physician. Giovana Kathleen nurse practitioner acting as scribe for signing physician. Patient Condition at Discharge: Stable Plan - Discharge Summary New Discharge Prescriptions: Ondansetron [Zofran ODT] 4 mg PO Q8HR #60 tab Discharge Medication List Morphine Sulfate ER [Ms Contin] 60 mg PO TID PRN 10/21/13 [History] Pantoprazole [Protonix] 40 mg PO BID #60 tablet. 02/07/16 [Rx] Sucralfate [Carafate] 1 gm PO ACHS #120 tab 02/07/16 [Rx] Folic Acid 0.8 mg PO DAILY 03/04/16 [History] Liquid Iron Supplement 24 ml PO BID 03/04/16 [History] Vitamin B Complex 1 cap PO DAILY 03/04/16 [History] Ondansetron [Zofran ODT] 4 mg PO Q8HR #60 tab 03/06/16 [Rx] Follow up Appointment(s)/Referral(s): Macy Leiva MD [STAFF PHYSICIAN] - 03/24/16 12:45 pm Pablo Linn MD [Primary Care Provider] - 03/13/16 11:00 am ([phone]) Patient Instructions/Handouts: Gastrointestinal Bleeding (DC) Activity/Diet/Wound Care/Special Instructions: Regular, bland diet, advance as tolerated. Discharge Disposition: HOME SELF-CARE
== END 2016-03-06 15:59 | disposition home or self-care (01) ==
LOC: EC 13:00 → 4MS4W 15:52
PROVIDERS: ADMIT Internal Medicine; ATTEND Internal Medicine
DX: K70.30 Alcoholic cirrhosis of liver without ascites (principal); I85.10 Secondary esophageal varices without bleeding; D62 Acute posthemorrhagic anemia; K29.70 Gastritis, unspecified, without bleeding; F10.10 Alcohol abuse, uncomplicated; D69.59 Other secondary thrombocytopenia; D61.818 Other pancytopenia; K92.0 Hematemesis; K76.6 Portal hypertension; D68.4 Acquired coagulation factor deficiency; G89.29 Other chronic pain; D75.9 Disease of blood and blood-forming organs, unspecified; M48.00 Spinal stenosis, site unspecified; F17.290 Nicotine dependence, other tobacco product, uncomplicated; Z79.899 Other long term (current) drug therapy
CPT/HCPCS: 99285; 96374; 96375 ×2; 96361 ×2; 36415; 86900; 86901; 80053 ×3; 82150; 83690; 85025 ×2; 85027; 85610; 85730; 86850; 81003; 87086; 74020; 43244; G0378 ×3; J2270; J2765; J2405 ×2; J2001; J2704; C9113 ×2; 43255; 96376

== ENCOUNTER → 2016-04-22 | Outpatient (CLI) | payer MEDICARE ==
--- NOTE | 2016-04-22 13:20 | MR ---
EXAMINATION TYPE: MR chetan/gilles wo con DATE OF EXAM: 04/22/2016 12:50 PM COMPARISON: NONE HISTORY: Back pain Multiplanar MultiSpin echo imaging of the thoracic spine was performed. There appears to be multilevel disc bulging or protrusions involving the mid and lower cervical spine . Consider dedicated evaluation. Disc spaces: Mild disc bulging is noted at T8-T9 and T9-T10. Is no evidence for disc herniation or fo aidan protrusion. Spinal canal: No evidence for canal stenosis. No intrinsic or extrinsic lesion. Thoracic spinal cord: Thoracic spinal cord is of normal caliber and signal. Paraspinal soft tissues: No evidence for paraspinal mass. No destructive lesions seen. Vertebral segments: No evidence for fracture or bony lesion. IMPRESSION: 1. Mild disc bulging as discussed above. Otherwise unremarkable study. EXAMINATION TYPE: MR chetan/gilles wo con DATE OF EXAM: 04/22/2016 12:50 PM COMPARISON: NONE HISTORY: Back pain Multiplanar, MultiSpin echo imaging of the lumbar spine was performed. L1-L2: There is evidence of mild disc desiccation. Circumferential disc bulge greatest paracentrally and to the left with mild effacement of the ventral thecal sac. Mild left lateral recess stenosis. No evidence for amador herniation or protrusion. L2-L3: Normal disc appearance without desiccation. No herniation, protrusion or disc bulging. No ca nal stenosis is present. Foramina are patent bilaterally. L3-L4: Normal disc appearance without desiccation. No herniation, protrusion or disc bulging. No ca nal stenosis is present. Foramina are patent bilaterally. L4-L5: Moderate disc desiccation seen. Mild posterior central disc herniation with effacement of the ventral thecal sac and right lateral recess stenosis. Mild right-sided foraminal encroachment. L5-S1: Normal disc appearance without desiccation. No herniation, protrusion or disc bulging. No ca nal stenosis is present. Foramina are patent bilaterally. Lumbar segments are intact. No paraspinal masses are identified. Conus medullaris has a normal appe arance. IMPRESSION: 1. Degenerative disc disease as discussed. 2. Disc herniation at L4-5 with mild right lateral recess stenosis and foraminal encroachment. 3. Posterior disc bulging at L1-2 with left lateral recess stenosis as noted.
[2016-04-22 13:55] LABS: Basophils % (A) 1 %; CH 30.9; CHCM 33.5; Eosinophils # (A) 0.2 k/uL (0-0.7); Eosinophils % (A) 4 %; HCT 40.9 % (39.0-53.0); HDW 2.68; HGB 13.7 gm/dL (13.0-17.5); Luc # (Auto) 0.12; Luc % (Auto) 3; Lymphocytes # (A) 1.5 k/uL (1.0-4.8); Lymphocytes % (A) 31 %; MCH 30.9 pg (25.0-35.0); MCHC 33.4 g/dL (31.0-37.0); Monocytes # (A) 0.5 k/uL (0-1.0); Monocytes % (A) 9 %; Neutrophils # (A) 2.6 k/uL (1.3-7.7); Neutrophils % (A) 53 %; RBC 4.43 m/uL (4.30-5.90); WBC 4.8 k/uL (3.8-10.6); WBC (Perox) 5.01
[2016-04-22 14:04] LABS: MCV 92.5 fL (80.0-100.0)
[2016-04-22 14:25] LABS: Manual Review Performed
[2016-04-22 14:26] LABS: ALT 26 U/L (21-72); AST 27 U/L (17-59); Alkaline Phosphatase 63 U/L (38-126); Anion Gap 10 mmol/L; Blood Urea Nitrogen 11 mg/dL (9-20); C Reactive Protein 7.2 mg/L (<10.0); Carbon Dioxide 24 mmol/L (22-30); Chloride 107 mmol/L (98-107); Creatine Kinase 38 U/L (55-170); Glucose 138 mg/dL (74-99); Non-African American GFR(MDRD) >60 (>60 ml/min/1.73 sqM); Potassium 4.6 mmol/L (3.5-5.1); RBC Morphology Normal; Rheumatoid Factor, Qnt <9 IU/mL (<12); Sodium 141 mmol/L (137-145); Total Bilirubin 1.3 mg/dL (0.2-1.3); Total Protein 7.1 g/dL (6.3-8.2)
[2016-04-22 15:12] LABS: Vitamin B12 583 pg/mL (239-931)
[2016-04-22 15:23] LABS: Erythrocyte Sedimentation Rate 14 mm/hr (0-15)
[2016-04-22 20:01] LABS: Treponemal Ab Non-Reactive (Non-Reactive)
[2016-04-22 20:25] LABS: ANA w/Reflex to Titer NEGATIVE (NEGATIVE)
== END | disposition home or self-care (01) ==
LOC: RADMRIMAIN 11:49
PROVIDERS: ATTEND Psychiatry & Neurology Pain Medicine
DX: M51.24 Other intervertebral disc displacement, thoracic region (principal); M48.06 Spinal stenosis, lumbar region; M51.26 Other intervertebral disc displacement, lumbar region; M51.36 Other intervertebral disc degeneration, lumbar region; G61.0 Guillain-Barre syndrome
CPT/HCPCS: 72146; 72148; 80053; 82306; 82550; 82607; 84439; 84443; 84481; 85025; 85652; 86038; 86140; 86225; 86334; 86431; 86780

== ENCOUNTER 2016-05-07 11:01 | Day surgery (SDC) | payer MEDICARE ==
[2016-05-07] MEDS ORDERED: LACTATED RINGERS 1,000 ML IV SCH ×2 (11:49)
[2016-05-07 11:55] VITALS: RESP 16; TEMP 98.8
[2016-05-07] MEDS ORDERED: LIDOCAINE 1% 20 ML VIAL (10MG/ML) FOR IV START INTRADERMA ONE (12:04)
[2016-05-07 12:14] LABS: Glucose,Whole Blood 136 mg/dL (75-99)
[2016-05-07] MEDS ORDERED: PROPOFOL 10 MG/ML 20 ML VIAL IV ONE (12:14)
[2016-05-07] MEDS ORDERED: LIDOCAINE 1% INJ 10MG/ML (20 ML MDV) ONE (12:14)
--- NOTE | 2016-05-07 12:28 | P.PCN ---
Date of Procedure: 05/07/16 Procedure(s) Performed: BRIEF HISTORY: Patient is a 40-year-old, pleasant, white male, scheduled for an upper endoscopy as a part of his follow-up of esophageal varices. He was admitted hospital with acute upper GI bleed in March of this year and had EGD done that showed small distal esophageal varices which were ligated. He scheduled for follow-up upper endoscopy today. PROCEDURE PERFORMED: Esophagogastroduodenoscopy with variceal ligation. PREOPERATIVE DIAGNOSIS: Follow-up esophageal varices. IV sedation per anesthesia. PROCEDURE: After informed consent was obtained, the patient was brought into the endoscopy unit. IV conscious sedation was administered by Anesthesia under continuous monitoring. Initially the Olympus GIF-140 video endoscope was inserted into the mouth. Esophagus intubated without any difficulty. It was gradually advanced into the stomach and duodenum and carefully examined. The bulb and the second part of the duodenum appeared normal. The scope at this time was withdrawn to the stomach, adequately insufflated with air, and upon careful examination, mucosa of the antrum, body, cardia appeared normal. In the fundus of the stomach where changes consistent with mild to moderate portal hypertensive gastropathy. No gastric varices seen. The scope was then withdrawn into the esophagus. The GE junction was located at 39 cm from the incisors. There were grade 1-2 distal esophageal varices identified with no active bleeding. The scope was removed and the variceal ligation equipment was introduced the tip of the scope. The esophagus intubated without any difficulty he was gradually advanced into the distal esophagus and using suction total of 3 bands were deployed in the distal esophageal varices. The rest of the esophagus appeared normal. There were no erosions or ulcerations seen and the patient tolerated the procedure well. IMPRESSION: 1. Grade 1 distal esophageal varices status post variceal ligation as described above. 2. Mild portal hypertensive gastropathy. RECOMMENDATIONS: The findings of this examination were discussed with the patient as well as his family. He will continue with his current medications and will plan a repeat upper endoscopy in 6 months.
[2016-05-07] MEDS ORDERED: HYDROmorphone 1 MG/ML 1 ML SYRINGE IVP STA (13:05)
[2016-05-07 13:25] VITALS: BP 112/83; PULSE 88
== END 2016-05-07 14:05 | disposition home or self-care (01) ==
LOC: ORWHC2ENDO 11:01
PROVIDERS: ATTEND Internal Medicine Gastroenterology
DX: I85.00 Esophageal varices without bleeding (principal); K21.9 Gastro-esophageal reflux disease without esophagitis; F17.200 Nicotine dependence, unspecified, uncomplicated; Z79.899 Other long term (current) drug therapy
CPT/HCPCS: 43244; J2001; J1170; J2704

== ENCOUNTER 2017-01-16 11:06 | Day surgery (SDC) | payer MEDICARE ==
[2017-01-15 08:53] VITALS: BMI 23.3
[~2017-01-16 11:06] MED LIST: LACTATED RINGERS 1,000 ML IV SCH; LIDOCAINE 1% 20 ML VIAL (10MG/ML) FOR IV START INTRADERMA PRN
[2017-01-16 11:40] VITALS: RESP 16; TEMP 98.4
[2017-01-16] MEDS ORDERED: LIDOCAINE 1% INJ 10MG/ML (20 ML MDV) ONE (12:21)
[2017-01-16] MEDS ORDERED: PROPOFOL 10 MG/ML 20 ML VIAL IV ONE (12:21)
--- NOTE | 2017-01-16 12:29 | P.PCN ---
Date of Procedure: 01/16/17 Procedure(s) Performed: BRIEF HISTORY: Patient is a 41-year-old, pleasant, white male with history of alcohol cirrhosis of the liver and previous history of esophageal variceal bleeding is scheduled for an upper endoscopy for a variceal ligation .has last upper endoscopy was done in April 2016 and was noted to have small esophageal varices that we ligated.. PROCEDURE PERFORMED: Esophagogastroduodenoscopy. PREOPERATIVE DIAGNOSIS: Follow-up esophageal varices. IV sedation per anesthesia. PROCEDURE: After informed consent was obtained, the patient was brought into the endoscopy unit. IV sedation was administered by Anesthesia under continuous monitoring. Initially the Olympus GIF-140 video endoscope was inserted into the mouth. Esophagus intubated without any difficulty. It was gradually advanced into the stomach and duodenum and carefully examined. The bulb and the second part of the duodenum appeared normal. The scope at this time was withdrawn to the stomach, adequately insufflated with air, and upon careful examination, mucosa of the antrum, body, cardia and the fundusshowed changes consistent with mild to moderate portal hypertensive gastropathy. The scope was then withdrawn into the esophagus.very small distal esophageal varices seen. Ligation was not performed. The GE junction was located at 39 cm from the incisors. The esophagus appeared normal. There were no erosions or ulcerations seen and the patient tolerated the procedure well. IMPRESSION: 1.Very small distal esophageal varices. 2.Portal hypertensive gastropathy. RECOMMENDATIONS: The findings of this examination were discussed with the patient as well as his family. he will have a repeat upper endoscopy in 1 year.
[2017-01-16 12:58] VITALS: BP 117/81; PULSE 82
== END 2017-01-16 13:10 | disposition home or self-care (01) ==
LOC: ORWHC2ENDO 11:06
PROVIDERS: ATTEND Internal Medicine Gastroenterology
DX: K70.31 Alcoholic cirrhosis of liver with ascites (principal); K31.89 Other diseases of stomach and duodenum; K76.6 Portal hypertension; K21.9 Gastro-esophageal reflux disease without esophagitis; K86.1 Other chronic pancreatitis; Z87.19 Personal history of other diseases of the digestive system; K86.81 Exocrine pancreatic insufficiency; I10 Essential (primary) hypertension; F17.200 Nicotine dependence, unspecified, uncomplicated; E07.9 Disorder of thyroid, unspecified; Z79.891 Long term (current) use of opiate analgesic; Z79.899 Other long term (current) drug therapy
CPT/HCPCS: 43235; J2001; J2704

== ENCOUNTER 2017-03-05 12:09 | Inpatient (IN) | payer MEDICARE ==
[2017-03-05] MEDS ORDERED: MORPHINE SULFATE 5 MG/ML SYRINGE IVP STA (12:15)
[2017-03-05] MEDS: SODIUM CHLORIDE 0.9% 1,000 ML IV SCH ×3 (12:22→21:50)
--- NOTE | 2017-03-05 12:31 | ED ---
General Adult HPI - General Stated complaint: Syncope Time Seen by Provider: 03/05/17 12:13 Source: patient, EMS, RN notes reviewed, old records reviewed - History of Present Illness Initial comments: 41-year-old male presented as transfer from outside facility for evaluation of multiple lab abnormalities. These laboratory analysis were found after the patient presented to the emergency department with syncopal episode and fall. Patient reported to previous ER physician that he was uncertain when he fell, he states that he tripped when I asked him about the fall, hitting his head and blacking out. He was unconscious for minutes. He has past medical history of liver cirrhosis secondary to chronic alcohol abuse as well as esophageal varices and chronic pancreatitis. In addition to headache injury and headache is complaining of abdominal pain. No fever. No chest pain. Patient does report mild cough. Denies vomiting or diarrhea. Patient was sent for evaluation of electrolyte abnormalities and gastroenterology evaluation. - Related Data Home Medications Medication Instructions Recorded Confirmed Morphine Sulfate ER [Ms Contin] 60 mg PO TID PRN 10/21/13 01/16/17 Vitamin B Complex 1 cap PO DAILY 03/04/16 01/16/17 Levothyroxine Sodium [Synthroid] 25 mcg PO DAILY 05/07/16 01/16/17 Ascorbic Acid [Vitamin C] 500 mg PO DAILY 01/02/17 01/16/17 Pantoprazole Sodium [Protonix] 20 mg PO BID 01/02/17 01/16/17 Ferrous Sulfate [Feosol] 325 mg PO DAILY 01/15/17 01/16/17 Furosemide [Lasix] 20 mg PO BID 01/15/17 01/16/17 Spironolactone [Aldactone] 25 mg PO BID 01/15/17 01/16/17 Sucralfate [Carafate] 1 gm PO QID 01/15/17 01/16/17 Allergies Allergy/AdvReac Type Severity Reaction Status Date / Time No Known Allergies Allergy Verified 03/05/17 12:26 Review of Systems ROS Statement: Those systems with pertinent positive or pertinent negative responses have been documented in the HPI. ROS Other: All systems not noted in ROS Statement are negative. Past Medical History Past Medical History: GERD/Reflux, GI Bleed, Hypertension, Liver Disease, Thyroid Disorder Additional Past Medical History / Comment(s): back, legs and feet pain due to spinal stenosis , pancreatitis, [employer] 2010, DENIES CHF BUT DOES RETAIN FLUID History of Any Multi-Drug Resistant Organisms: None Reported Past Surgical History: Appendectomy, Back Surgery Additional Past Surgical History / Comment(s): RIGHT THUMB SURGERY , EGD Past Anesthesia/Blood Transfusion Reactions: No Reported Reaction Smoking Status: Current every day smoker - Past Family History Father Family Medical History: No Reported History Mother Family Medical History: No Reported History General Exam General appearance: alert, in no apparent distress Eye exam: Present: normal appearance, PERRL, EOMI ENT exam: Present: normal exam Neck exam: Present: normal inspection. Absent: tenderness, meningismus Respiratory exam: Present: normal lung sounds bilaterally. Absent: respiratory distress, wheezes Cardiovascular Exam: Present: regular rate, normal rhythm GI/Abdominal exam: Present: distended, tenderness, guarding Extremities exam: Present: other. Absent: pedal edema, calf tenderness Neurological exam: Present: alert, oriented X3, CN II-XII intact. Absent: motor sensory deficit Psychiatric exam: Present: normal affect, normal mood Skin exam: Present: warm, dry (Severe lower extremity dry skin), pallor. Absent : cyanosis, diaphoretic Medical Decision Making - Medical Decision Making 41-year-old male presenting as a transfer patient status post fall. Patient transferred for M abnormalities and gastroenterology evaluation. Head CT was reviewed, negative for intracranial hemorrhage, CT abdomen and pelvis showed liver cirrhosis, concern for sclerosing cholangitis, esophageal varices, and chronic pancreatitis. Laboratory studies revealed lactic acid of 3.9, magnesium of 0.6, platelet count of 17, hemoglobin 12.4, white blood cell count 4.2, sodium 128. Potassium 3.0, calcium 6.9 ammonia 74, lipase 123. Patient received replacement of potassium, calcium, and magnesium as well as IV hydration prior to transfer. Patient will be admitted for electrolyte replacement, rehydration, and gastroenterology evaluation Disposition Clinical Impression: Dehydration, Lactic acidosis, Hypomagnesemia, Hypokalemia, Hypocalcemia, Chronic pancreatitis Disposition: ADMITTED IP TO THIS HOSP Condition: Stable Referrals: Pablo Linn MD [Primary Care Provider] - 1-2 days Time of Disposition: 12:31 Decision to Admit Reason: Admit from [facility]
[2017-03-05] MEDS ORDERED: HYDROmorphone 1 MG/ML 1 ML SYRINGE IVP PRN (13:08)
[2017-03-05] MEDS ORDERED: NALOXONE 0.4 MG/ML 1 ML VIAL IV PRN (13:08)
[2017-03-05 13:57] LABS: Basophils % (A) 0 %; Eosinophils % (A) 2 %; HCT 34.6 % (39.0-53.0); HGB 11.3 gm/dL (13.0-17.5); Lymphocytes # (A) 0.3 k/uL (1.0-4.8); Lymphocytes % (A) 11 %; MCH 33.7 pg (25.0-35.0); MCHC 32.7 g/dL (31.0-37.0); MCV 103.1 fL (80.0-100.0); Macrocytosis Slight; Mean Platelet Volume 10.8; Monocytes # (A) 0.2 k/uL (0-1.0); Monocytes % (A) 9 %; Neutrophils # (A) 1.8 k/uL (1.3-7.7); Neutrophils % (A) 76 %; RBC 3.35 m/uL (4.30-5.90); RDW 15.2 % (11.5-15.5); WBC 2.4 k/uL (3.8-10.6)
[2017-03-05 14:03] LABS: ALT 46 U/L (21-72); AST 145 U/L (17-59); Albumin 2.8 g/dL (3.5-5.0); Alkaline Phosphatase 112 U/L (38-126); Anion Gap 8 mmol/L; Blood Urea Nitrogen 12 mg/dL (9-20); Carbon Dioxide 26 mmol/L (22-30); Chloride 102 mmol/L (98-107); Glucose 112 mg/dL (74-99); Lipase 205 U/L (23-300); Magnesium 1.7 mg/dL (1.6-2.3); Potassium 3.5 mmol/L (3.5-5.1); Sodium 136 mmol/L (137-145); Total Bilirubin 6.9 mg/dL (0.2-1.3); Total Protein 6.3 g/dL (6.3-8.2)
[2017-03-05 14:24] LABS: Platelet Count 11 k/uL (150-450)
[2017-03-05] MEDS: HYDROmorphone 1 MG/ML 1 ML SYRINGE IVP PRN (20:25)
[2017-03-05] MEDS: POTASSIUM CHLORIDE ER 20 MEQ TAB.ER PO SCH (20:30)
[2017-03-05] MEDS: SUCRALFATE 1 GM TAB PO SCH (21:00)
[2017-03-06] MEDS: HYDROmorphone 1 MG/ML 1 ML SYRINGE IVP PRN ×3 (00:05→06:30)
[2017-03-06] MEDS: SODIUM CHLORIDE 0.9% 1,000 ML IV SCH ×3 (00:07→15:48)
[2017-03-06] MEDS: PANTOPRAZOLE 40 MG TABLET PO SCH ×2 (06:23→16:19)
[2017-03-06] MEDS: LEVOTHYROXINE 25 MCG TAB PO SCH (06:23)
[2017-03-06 06:42] LABS: Basophils % (A) 1 %; Eosinophils # (A) 0.1 k/uL (0-0.7); Eosinophils % (A) 2 %; HCT 34.3 % (39.0-53.0); HGB 10.9 gm/dL (13.0-17.5); Lymphocytes # (A) 0.6 k/uL (1.0-4.8); Lymphocytes % (A) 19 %; MCH 33.2 pg (25.0-35.0); MCHC 31.8 g/dL (31.0-37.0); MCV 104.3 fL (80.0-100.0); Macrocytosis Moderate; Mean Platelet Volume 9.8; Monocytes # (A) 0.2 k/uL (0-1.0); Monocytes % (A) 8 %; Neutrophils # (A) 1.9 k/uL (1.3-7.7); Neutrophils % (A) 68 %; RBC 3.29 m/uL (4.30-5.90); RDW 15.4 % (11.5-15.5); WBC 2.9 k/uL (3.8-10.6)
[2017-03-06 06:43] LABS: Platelet Count 12 k/uL (150-450)
[2017-03-06 06:52] LABS: ALT 42 U/L (21-72); Blood Urea Nitrogen 8 mg/dL (9-20); Carbon Dioxide 20 mmol/L (22-30); Chloride 110 mmol/L (98-107); Glucose 79 mg/dL (74-99); Magnesium 1.4 mg/dL (1.6-2.3)
[2017-03-06 07:16] LABS: AST 136 U/L (17-59); Albumin 2.7 g/dL (3.5-5.0); Alkaline Phosphatase 105 U/L (38-126); Anion Gap 9 mmol/L; Potassium 3.5 mmol/L (3.5-5.1); Sodium 139 mmol/L (137-145); Total Bilirubin 6.9 mg/dL (0.2-1.3)
[2017-03-06 07:25] LABS: Calcium 6.5 mg/dL (8.4-10.2)
[2017-03-06] MEDS ORDERED: PANTOPRAZOLE 40 MG TABLET PO SCH (07:30)
[2017-03-06] MEDS: MAGNESIUM SULFATE-D5W PMX 1 GM in DEXTROSE/WATER 1 100ML.BAG IVPB SCH ×2 (08:32→09:42)
[2017-03-06] MEDS: FERROUS SULFATE 325 MG TAB PO SCH (08:32)
[2017-03-06] MEDS: B COMPLEX-VIT C-VIT E-ZINC 1 EACH TAB PO SCH (08:32)
[2017-03-06] MEDS: ASCORBIC ACID 500 MG TAB PO SCH (08:32)
[2017-03-06] MEDS: SUCRALFATE 1 GM TAB PO SCH ×4 (08:32→21:48)
[2017-03-06] MEDS: MAGNESIUM OXIDE 400 MG TAB PO SCH (08:32)
[2017-03-06] MEDS: POTASSIUM CHLORIDE ER 20 MEQ TAB.ER PO SCH ×2 (08:32→21:49)
[2017-03-06] MEDS: PROPRANOLOL 10 MG TAB PO SCH ×3 (08:32→21:49)
[2017-03-06] MEDS ORDERED: HYDROmorphone 2 MG/ML 1 ML SYRINGE IVP PRN ×2 (09:05→09:13)
--- NOTE | 2017-03-06 09:11 | P.HPIM ---
History of Present Illness H&P Date: 03/05/17 This is a 40-year-old male patient of Dr. Sarmad Linn. He has history of alcohol liver cirrhosis with portal hypertension and previous GI bleeding, hypertension and gastritis, pancreatitis. He is also known to Dr. Smart from previous EGDs in the past. This was last performed in 01/16/2017 with small distal esophageal varices. He states his last alcohol ingestion was 22 February 2017 . He was admitted for acute GI bleed in jan 2016 and mar 2016. He had another episode of coffee-ground emesis 2 weeks ago and was admitted in the ICU. He denies any alcohol use in the past week but did drink 2 week ago. He denies any nonsteroidal anti-inflammatory or aspirin use. He presented to [facility] emergency center as transfer from outside facility for evaluation of abnormal labs. According to the patient he was feeling unwell for the past 1 month with abdominal pain and muscle cramps. He stood up from the bed use the restroom and hit his head to the door of the bathroom. He does not recall the event that led to head injury. Mother states that patient had a seizure and lost his consciousness with the event lasted for 3-5 minutes. He was transferred here to [facility] for evaluation of abnormal labs, sclerosing cholangitis seen on the computed tomography scan, significant abdominal pain and head injury. Magnesium and potassium was repleted and according to the current labs patient's potassium is 3.5 and mag is 1.7. He has increased liver function testing that has worsened since his last admission to 6.9 and AST of 145. CBC suggestive platelet of 11,000. He denies any recent GI bleed but did have an episode of Coffee-ground emesis 2 weeks ago, denies melena. He has his last endoscopy done [address] Bowie and was told that it was normal. His last alcohol intake was 2 weeks ago. Patient continues to drink 2 of 12-16 ounces of hard liquor on and off. He said he had multiple relapses but quit officially in 2013. He is able to mobilize without any difficulty but can only walk to his car. His activities are restricted to driving his daughter to school and going to his appointments. He sees a pain specialist who has him on morphine 60 extended release 3 times a day which is not managing his abdominal pain. He feels Dilaudid cuts his pain. Abdominal pain is diffuse in nature, worse in the epigastric area radiating to his flank, chest and to his jaw. Patient also endorses muscle cramps and back pain from degenerative disc disease. Review of Systems Constitutional: Reports anorexia, Reports fatigue, Reports poor appetite, Denies chronic headaches, Denies fever Eyes: denies blurred vision, denies diplopia, denies dry eye Ears, nose, mouth and throat: Denies post-nasal drip, Denies sinus pain, Denies swelling in mouth, Denies swelling in throat Cardiovascular: Denies chest pain, Denies decreased exercise tolerance, Denies dyspnea on exertion, Denies high blood pressure, Denies irregular heart beat, Denies leg edema, Denies lightheadedness, Denies shortness of breath Respiratory: Denies congestion, Denies cough, Denies cough with sputum, Denies dyspnea, Denies home oxygen, Denies sleep apnea, Denies wheezing Gastrointestinal: Reports abdominal pain, Reports belching, Reports bloating, Reports change in bowel habits, Reports coffee ground emesis (multiple episodes of diarrhea), Reports early satiety, Reports heartburn, Reports loss of appetite , Reports nausea, Denies BRBPR, Denies hematemesis, Denies hematochezia, Denies vomiting Genitourinary: Reports flank pain, Denies dysuria, Denies hematuria, Denies polyuria, Denies urinary frequency Musculoskeletal: Reports frequent falls, Reports gait dysfunction, Reports low back pain, Reports muscle cramps, Reports muscle weakness Musculoskeletal: absent: ankle stiffness, ankle swelling, foot pain, hand pain, hip pain, knee pain, shoulder pain Integumentary: Denies brittle nails, Denies change in hair/nails, Denies growths , Denies striae, Denies wounds Neurological: Reports numbness, Reports paresthesias, Reports tingling, Reports weakness, Denies aphasia, Denies ataxia, Denies balance difficulties, Denies change in mentation, Denies change in speech, Denies confusion, Denies convulsions, Denies paralysis, Denies visual changes Psychiatric: Reports change in appetite, Reports change in sleep habits, Reports sadness/tearfulness Endocrine: Reports fatigue Past Medical History Past Medical History: GERD/Reflux, GI Bleed, Hypertension, Liver Disease, Thyroid Disorder Additional Past Medical History / Comment(s): Liver cirrhosis, portal htn, ETOH abuse, esophageal varicies, upper GI bleed, chronic thrombocytopenia, coagulopathy, pancytopenia, ascities, spinal stenosis: back/leg and feet pain, DDD, chronic back pain, neuropathy bilateral legs/feet, falls, bronchitisi, past L rib fractures after fall off ladder, 2009 [place], History of Any Multi-Drug Resistant Organisms: None Reported Past Surgical History: Appendectomy, Joint Replacement Additional Past Surgical History / Comment(s): EGDs with last one done 01/16/17 , paracentesis, back injections, R thumb reattachment, circumcism. Past Anesthesia/Blood Transfusion Reactions: No Reported Reaction Additional Past Anesthesia/Blood Transfusion Reaction / Comment(s): Pt has received blood without reaction. Smoking Status: Current every day smoker - Past Family History Father Family Medical History: No Reported History Additional Family Medical History / Comment(s): Pt does not know his father's medical hx. Mother Family Medical History: No Reported History Additional Family Medical History / Comment(s): Mother is healthy. Medications and Allergies Home Medications Medication Instructions Recorded Confirmed Type Vitamin B Complex 1 cap PO DAILY 03/04/16 03/05/17 History Levothyroxine Sodium [Synthroid] 25 mcg PO DAILY 05/07/16 03/05/17 History Ascorbic Acid [Vitamin C] 500 mg PO DAILY 01/02/17 03/05/17 History Pantoprazole Sodium [Protonix] 20 mg PO BID 01/02/17 03/05/17 History Ferrous Sulfate [Feosol] 325 mg PO DAILY 01/15/17 03/05/17 History Sucralfate [Carafate] 1 gm PO QID 01/15/17 03/05/17 History Magnesium 200 mg PO DAILY 03/05/17 03/05/17 History Multivitamin [Men's Multi-Vitamin] 1 tab PO DAILY 03/05/17 03/05/17 History Potassium Chloride [Klor-Con 20] 20 meq PO BID 03/05/17 03/05/17 History Allergies Allergy/AdvReac Type Severity Reaction Status Date / Time No Known Allergies Allergy Verified 03/05/17 12:26 Physical Exam Vitals: Vital Signs Temp Pulse Resp BP Pulse Ox 03/05/17 18:24 99.2 F 88 14 117/73 96 03/05/17 16:00 80 18 126/93 98 03/05/17 13:30 89 16 137/89 96 03/05/17 12:22 99.8 F H 98 18 127/69 97 Intake and Output 03/05/17 03/05/17 03/05/17 06:59 14:59 22:59 Other: Weight 70.307 kg Patient Weight 03/06/17 06:59 Weight 70.307 kg - Constitutional General appearance: average body habitus, cooperative, severe distress - EENT Eyes: EOMI, PERRLA, no photophobia, poor dentition, no ptosis, scleral icterus ENT: hearing grossly normal, normal oropharynx Ears: bilateral: normal - Neck Neck: lymphadenopathy Carotids: bilateral: upstroke normal - Respiratory Respiratory: bilateral: CTA, negative: diminished, dullness, rales, rhonchi, wheezing - Cardiovascular Rhythm: regular Heart sounds: normal: S1, S2 Abnormal Heart Sounds: no systolic murmur, no diastolic murmur, no rub, no click - Gastrointestinal General gastrointestinal: decreased bowel sounds, distended, soft, tenderness Localized gastrointestinal: tender: diffuse, epigastric periumbilical (worse), guarding: diffuse - Integumentary Integumentary: no cyanotic, jaundiced, rash (left frontal hematoma and foot bruise ont he dorasal aspect of the left foot ), no ulcer - Neurologic Neurologic: CNII-XII intact - Musculoskeletal Musculoskeletal: generalized weakness - Psychiatric Psychiatric: A&O x's 3, appropriate affect Results CBC & Chem 7: 03/06/17 06:14 03/06/17 06:14 Labs: Abnormal Lab Results - Last 24 Hours (Table) 03/05/17 03/05/17 Range/Units 13:32 13:32 WBC 2.4 L (3.8-10.6) k/uL RBC 3.35 L (4.30-5.90) m/uL Hgb 11.3 L (13.0-17.5) gm/dL Hct 34.6 L (39.0-53.0) % MCV 103.1 H (80.0-100.0) fL Plt Count 11 L* (150-450) k/uL Lymphocytes # 0.3 L (1.0-4.8) k/uL Sodium 136 L (137-145) mmol/L Glucose 112 H (74-99) mg/dL Calcium 7.0 L (8.4-10.2) mg/dL Total Bilirubin 6.9 H (0.2-1.3) mg/dL AST 145 H (17-59) U/L Albumin 2.8 L (3.5-5.0) g/dL Thrombosis Risk Factor Assmnt - DVT/VTE Prophylaxis DVT/VTE Prophylaxis: Pharmacologic Prophylaxis ordered, Contraindicated - See note (low platelets) - Choose All That Apply Any of the Below Risk Factors Present?: Yes Each Factor Represents 1 point: Age 41-60 years Other Risk Factors: No Other congenital or acquired thrombophilia - If yes, enter type in comment: No Thrombosis Risk Factor Assessment Total Risk Factor Score: 1 Thrombosis Risk Factor Assessment Level: Low Risk Assessment and Plan Plan: 1. Fall likely mechanical with syncope. Seizure cannot be ruled out . Continue fall precautions and seizure precaution. CT head negative for any acute bleed. Patient denies any headache. He does not recall any incidents. He did have documented electrolyte abnormality that could contribute to his presentation, 2.Hyperbilirubinemia Abdominal pain worse in epigastric area. with increased LFT. Sclerosing cholangitis on CT report. Continue Zofran for nausea and vomiting increased frequency to every 4 hours. Continue Protonix 40 mg every 12 hours. Consult with GI 3. Alcoholic liver cirrhosis 4. History of heavy alcohol use with last relapse early January 2017. Denies recent alcohol intake 5. Chronic thrombocytopenia secondary to cirrhosis of the liver. Platelet 11. No transfusionindicated unless patient to undergo any procedure 6. History of pancreatitis in the past currently stable 7. DVT prophylaxis - SCDs, no heparin due to low platelets 8. Coagulopathy secondary to cirrhosis of liver and is currently at 1.5 continue to monitor 9. GI prophylaxis patient will be on Protonix 40 mg twice a day 10. Acute on chronic pain follows with the pain clinic on morphine ER 60 every 8 hours when necessary as an outpatient. dilaudid 1 mg q3 hr 11. Pancytopenia with cytopenia due to splenic sequestration from EtOH liver cirrhosis and leukopenia from EtOH bone marrow suppression. 12. Hypomagnesia/ hypokalemia - repleted 13. Frontal scalp hematoma, stable Patient will be admitted to the hospital for a minimum of 2 night stay. Discharge plan: Possibly home tomorrow after EGD
[2017-03-06] MEDS ORDERED: MORPHINE SULFATE ER 60 MG TABLET PO SCH (09:15)
[2017-03-06] MEDS: CALCIUM CARB-VIT D 500MG-200UN 1 EACH TAB PO SCH ×2 (12:14→16:19)
[2017-03-06] MEDS: MULTIVITAMINS, THERA 1 EACH TAB PO SCH (12:14)
--- NOTE | 2017-03-06 12:22 | P.PN ---
<Giovana Kathleen A - Last Filed: 03/06/17 12:51> Subjective Progress Note Date: 03/06/17 This is a 40-year-old male patient of Dr. Sarmad Linn. He has history of alcohol liver cirrhosis with portal hypertension and previous GI bleeding, hypertension and gastritis, pancreatitis. He is also known to Dr. Smart from previous EGDs in the past. This was last performed in 01/16/2017 with small distal esophageal varices. He states his last alcohol ingestion was 22 February 2017 . He was admitted for acute GI bleed in jan 2016 and mar 2016. He had another episode of coffee-ground emesis 2 weeks ago and was admitted in the ICU. He denies any alcohol use in the past week but did drink 2 week ago. He denies any nonsteroidal anti-inflammatory or aspirin use. He presented to [facility] emergency center as transfer from outside facility for evaluation of abnormal labs. According to the patient he was feeling unwell for the past 1 month with abdominal pain and muscle cramps. He stood up from the bed use the restroom and hit his head to the door of the bathroom. He does not recall the event that led to head injury. Mother states that patient had a seizure and lost his consciousness with the event lasted for 3-5 minutes. He was transferred here to [facility] for evaluation of abnormal labs, sclerosing cholangitis seen on the computed tomography scan, significant abdominal pain and head injury. Magnesium and potassium was repleted and according to the current labs patient's potassium is 3.5 and mag is 1.7. He has increased liver function testing that has worsened since his last admission to 6.9 and AST of 145. CBC suggestive platelet of 11,000. He denies any recent GI bleed but did have an episode of Coffee-ground emesis 2 weeks ago, denies melena. He has his last endoscopy done [address] Bowie and was told that it was normal. His last alcohol intake was 2 weeks ago. Patient continues to drink 2 of 12-16 ounces of hard liquor on and off. He said he had multiple relapses but quit officially in 2013. He is able to mobilize without any difficulty but can only walk to his car. His activities are restricted to driving his daughter to school and going to his appointments. He sees a pain specialist who has him on morphine 60 extended release 3 times a day which is not managing his abdominal pain. He feels Dilaudid cuts his pain. Abdominal pain is diffuse in nature, worse in the epigastric area radiating to his flank, chest and to his jaw. Patient also endorses muscle cramps and back pain from degenerative disc disease. 03/06: Patient states that he is on MS Contin 60 mg 3 times daily at home. This will be resumed but following this pharmacy checked that this has not been filled by his pharmacy. [facility] was checked and patient has not received any prescriptions for morphine. Patient was started on Dilaudid 0.5 mg IV as needed. Dietitian met with the patient and it appeared he was having hallucinations and Dilaudid discontinued and [place] only ordered. Objective - Vital Signs Vital signs: Vital Signs Temp 97.7 F 03/06/17 08:40 Pulse 80 03/06/17 08:40 Resp 16 03/06/17 08:40 BP 109/64 03/06/17 08:40 Pulse Ox 97 03/06/17 08:40 Intake & Output 03/05/17 03/06/17 03/06/17 18:59 06:59 18:59 Intake Total 2500 450 Output Total 400 Balance 2100 450 Weight 70.307 kg 74 kg Intake: Intake, IV Titration 2500 Amount Sodium Chloride 0.9% 1, 500 000 ml @ 125 mls/hr IV . Q8H AWA Rx#:[id number] Sodium Chloride 0.9% 1, 2000 000 ml @ 999 mls/hr IV . Q1H1M AWA Rx#:[id number] Oral 450 Output: Urine 400 Other: Voiding Method Urinal Urinal # Voids 1 - Exam General appearance: average body habitus, cooperative, severe distress - EENT Eyes: EOMI, PERRLA, no photophobia, poor dentition, no ptosis, scleral icterus ENT: hearing grossly normal, normal oropharynx Ears: bilateral: normal - Neck Neck: lymphadenopathy Carotids: bilateral: upstroke normal - Respiratory Respiratory: bilateral: CTA, negative: diminished, dullness, rales, rhonchi, wheezing - Cardiovascular Rhythm: regular Heart sounds: normal: S1, S2 Abnormal Heart Sounds: no systolic murmur, no diastolic murmur, no rub, no click - Gastrointestinal General gastrointestinal: decreased bowel sounds, distended, soft, tenderness Localized gastrointestinal: tender: diffuse, epigastric periumbilical (worse), guarding: diffuse - Integumentary Integumentary: no cyanotic, jaundiced, no rash, no ulcer - Neurologic Neurologic: CNII-XII intact - Musculoskeletal Musculoskeletal: generalized weakness - Psychiatric Psychiatric: A&O x's 3, appropriate affect - Labs CBC & Chem 7: 03/06/17 06:14 03/06/17 06:14 Labs: Abnormal Lab Results - Last 24 Hours (Table) 03/05/17 03/05/17 03/06/17 Range/Units 13:32 13:32 06:14 WBC 2.4 L (3.8-10.6) k/uL RBC 3.35 L (4.30-5.90) m/uL Hgb 11.3 L (13.0-17.5) gm/dL Hct 34.6 L (39.0-53.0) % MCV 103.1 H (80.0-100.0) fL Plt Count 11 L* (150-450) k/uL Lymphocytes # 0.3 L (1.0-4.8) k/uL Sodium 136 L (137-145) mmol/L Chloride 110 H (98-107) mmol/L Carbon Dioxide 20 L (22-30) mmol/L BUN 8 L (9-20) mg/dL Creatinine 0.62 L (0.66-1.25) mg/dL Glucose 112 H (74-99) mg/dL Calcium 7.0 L 6.5 L* (8.4-10.2) mg/dL Magnesium 1.4 L (1.6-2.3) mg/dL Total Bilirubin 6.9 H 6.9 H (0.2-1.3) mg/dL AST 145 H 136 H (17-59) U/L Ammonia (<30) umol/L Total Protein 6.0 L (6.3-8.2) g/dL Albumin 2.8 L 2.7 L (3.5-5.0) g/dL 03/06/17 03/06/17 Range/Units 06:14 06:14 WBC 2.9 L (3.8-10.6) k/uL RBC 3.29 L (4.30-5.90) m/uL Hgb 10.9 L (13.0-17.5) gm/dL Hct 34.3 L (39.0-53.0) % MCV 104.3 H (80.0-100.0) fL Plt Count 12 L* (150-450) k/uL Lymphocytes # 0.6 L (1.0-4.8) k/uL Sodium (137-145) mmol/L Chloride (98-107) mmol/L Carbon Dioxide (22-30) mmol/L BUN (9-20) mg/dL Creatinine (0.66-1.25) mg/dL Glucose (74-99) mg/dL Calcium (8.4-10.2) mg/dL Magnesium (1.6-2.3) mg/dL Total Bilirubin (0.2-1.3) mg/dL AST (17-59) U/L Ammonia 39 H (<30) umol/L Total Protein (6.3-8.2) g/dL Albumin (3.5-5.0) g/dL Assessment and Plan Plan: 1. Fall likely mechanical with syncope. Seizure cannot be ruled out . Continue fall precautions and seizure precaution. CT head negative for any acute intracranial bleed but did show left forehead hematoma. Patient denies any headache. He does not recall any incidents. He did have documented electrolyte abnormality that could contribute to his presentation, 2.Hyperbilirubinemia Abdominal pain worse in epigastric area. with increased LFT. Sclerosing cholangitis on CT report. Continue Zofran for nausea and vomiting increased frequency to every 4 hours. Continue Protonix 40 mg every 12 hours. Consult with GI 3. Alcoholic liver cirrhosis with portal hypertension. Patient started on Inderal 10 mg 3 times daily. 4. History of heavy alcohol use with last relapse early January 2017. No recent alcohol intake. 5. Chronic thrombocytopenia secondary to cirrhosis of the liver. Platelet 11. No transfusionindicated unless patient to undergo any procedure 6. History of pancreatitis in the past currently stable 7. DVT prophylaxis - SCDs, no heparin due to low platelets 8. Coagulopathy secondary to cirrhosis of liver and is currently at 1.5 continue to monitor 9. GI prophylaxis patient will be on Protonix 40 mg twice a day 10. Acute on chronic pain follows with the pain clinic on morphine ER 60 every 8 hours when necessary as an outpatient. dilaudid 1 mg q3 hr 11. Pancytopenia with cytopenia due to splenic sequestration from EtOH liver cirrhosis and leukopenia from EtOH bone marrow suppression. 12. Hypomagnesia/ hypokalemia - replaced 13. Hallucinations, acute delirium possibly related to Dilaudid which will be discontinued. Patient may receive [place] for pain. Patient is not on MS Contin at home as he states. Discharge plan: Possibly home tomorrow after EGD Impression and plan of care have been directed as dictated by the signing physician. Giovana Kathleen nurse practitioner acting as scribe for signing physician. <SharonYasmin - Last Filed: 03/06/17 23:10> Subjective patient was found to be agitated, hallucinating, having tremors which appeared to be withdrawal symptoms. Unclear if patient is withdrawing from alcohol or opiods. He was seen taking something out from his bag which nurse suspects was 15 mg of morphine. According to the patient he is currently on 15 mg of morphine and he has been cutting down his morphine dose with the help of physician. Patient doesnot remember his pain physician name. Due to change of mental status and recent head injury, neurology is consulted. Objective - Vital Signs Vital signs: Vital Signs Temp 98.9 F 03/06/17 22:20 Pulse 111 H 03/06/17 22:20 Resp 17 03/06/17 22:20 BP 129/74 03/06/17 22:20 Pulse Ox 91 L 03/06/17 22:20 Intake & Output 03/06/17 03/06/17 03/07/17 06:59 18:59 06:59 Intake Total 2500 900 Output Total 400 700 Balance 2100 200 Weight 74 kg 74 kg Intake: Intake, IV Titration 2500 Amount Sodium Chloride 0.9% 1, 500 000 ml @ 125 mls/hr IV . Q8H AWA Rx#:[id number] Sodium Chloride 0.9% 1, 2000 000 ml @ 999 mls/hr IV . Q1H1M AWA Rx#:[id number] Oral 900 Output: Urine 400 700 Other: Voiding Method Urinal Urinal # Voids 1 - Labs CBC & Chem 7: 03/06/17 06:14 03/06/17 06:14 Labs: Abnormal Lab Results - Last 24 Hours (Table) 03/06/17 03/06/17 03/06/17 Range/Units 06:14 06:14 06:14 WBC 2.9 L (3.8-10.6) k/uL RBC 3.29 L (4.30-5.90) m/uL Hgb 10.9 L (13.0-17.5) gm/dL Hct 34.3 L (39.0-53.0) % MCV 104.3 H (80.0-100.0) fL Plt Count 12 L* (150-450) k/uL Lymphocytes # 0.6 L (1.0-4.8) k/uL Chloride 110 H (98-107) mmol/L Carbon Dioxide 20 L (22-30) mmol/L BUN 8 L (9-20) mg/dL Creatinine 0.62 L (0.66-1.25) mg/dL Calcium 6.5 L* (8.4-10.2) mg/dL Magnesium 1.4 L (1.6-2.3) mg/dL Total Bilirubin 6.9 H (0.2-1.3) mg/dL AST 136 H (17-59) U/L Ammonia 39 H (<30) umol/L Total Protein 6.0 L (6.3-8.2) g/dL Albumin 2.7 L (3.5-5.0) g/dL
[2017-03-06] MEDS ORDERED: traMADol 50 MG TAB PO PRN (12:34)
[2017-03-06] MEDS ORDERED: HALOPERIDOL LACTATE 5 MG/ML 1 ML VIAL IM PRN (16:52)
[2017-03-06] MEDS ORDERED: LORazepam 2 MG/ML INJ IV PRN ×2 (16:52)
[2017-03-06] MEDS ORDERED: THIAMINE 100 MG/ML 2 ML VIAL IM STA (17:02)
--- NOTE | 2017-03-06 17:43 | CT ---
EXAMINATION TYPE: CT brain wo con DATE OF EXAM: 03/06/2017 COMPARISON: NONE HISTORY: Recent fall, left frontal laceration. Low platelets. CT DLP: 1112.00 mGycm. Automated Exposure Control for Dose Reduction was Utilized. TECHNIQUE: CT scan of the head is performed without contrast. FINDINGS: Ventricles have normal size. There is no mass effect nor midline shift. There is no sign o f intracranial hemorrhage. There is mild cerebral cortical atrophy for the patient's age. The calvari um is intact. There is fluid level in the left maxillary sinus. There is some mucosal thickening in t he left side ethmoid sinus. There is evidence of a blowout fracture of the medial wall of the left or bit. The age is not clear. This probably previous surgery on the left maxillary sinus. CONCLUSION: There is some cerebral mild cortical atrophy. Left orbital blowout fracture with fluid level in the left maxillary sinus and mucosal thickening in the left side ethmoid sinus. The age is not clear. This could be an acute fracture.
[2017-03-06] MEDS: NICOTINE 21MG/24HR PATCH TRANSDERM SCH (18:02)
--- NOTE | 2017-03-07 00:08 | P.CNNES ---
History of Present Illness Consult date: 03/06/17 Reason for Consult: Patient being evalluated for possible seizure and fall. History of Present Illness: This patient is a 41-year-old right-handed white male who is followed in the outpatient family practice clinic by Dr. Pablo Martinez. Patient has a known history of alcoholic liver cirrhosis and portal hypertension. He has been followed in the gastroenterology clinic for these conditions. Patient states he has had no alcohol to drink since 02/22/2017. Apparently he had an episode in which she passed out and struck his head. Mother stated that she thought he had a tonic-clonic seizure that may have lasted 3-5 minutes in duration. He was subsequently transferred from [facility] to [facility] for further evaluation. He seen in the ER by Dr. Tamez following this recent fall and possible seizure. Computed tomography scan of the head was negative for any intracranial changes. CAT scan of the abdomen revealed evidence for sclerosing cholangitis. Gastroenterology has been consulted for further evaluation. The patient underwent a computed tomography scan of the head today which reveals evidence of mild cerebral cortical atrophy. There is also evidence for a left orbital blowout fracture with fluid level in the left maxillary sinus. This could represent an acute fracture. We have recommended an ENT consultation for further evaluation of this CAT scan finding. Patient did sustain a laceration to his left frontal area of the scalp. He denies any headache pain nor pain over the left side of the head. We have recommended a routine EEG to be done tomorrow morning for further assessment of possible seizure disorder. He does have evidence of a metabolic encephalopathy due to several abnormal laboratory test results. The patient denies any previous history of major head trauma or head injury. He has no previous history of seizures. He does drink alcohol but as noted has not had alcohol since 2016. The patient is also being followed by a pain specialist as he does suffer from chronic pain. He has been restarted on some of his regular pain medications. Due to his recent syncopal episode he is now been admitted and neurology has been consulted for further evaluation and recommendations. Review of Systems Constitutional: Denies chills, Denies fever Eyes: denies blurred vision, denies pain Ears, nose, mouth and throat: Denies headache, Denies sore throat Cardiovascular: Denies chest pain, Denies shortness of breath Respiratory: Denies cough Gastrointestinal: Denies abdominal pain, Denies diarrhea, Denies nausea, Denies vomiting Musculoskeletal: Denies myalgias Integumentary: Denies pruritus, Denies rash Neurological: Reports change in mentation, Reports convulsions, Reports headaches, Reports seizures, Reports syncope, Denies numbness, Denies weakness Psychiatric: Reports insomnia, Denies anxiety, Denies depression Endocrine: Denies fatigue, Denies weight change Past Medical History Past Medical History: GERD/Reflux, GI Bleed, Hypertension, Liver Disease, Thyroid Disorder Additional Past Medical History / Comment(s): Liver cirrhosis, portal htn, ETOH abuse, esophageal varicies, upper GI bleed, chronic thrombocytopenia, coagulopathy, pancytopenia, ascities, spinal stenosis: back/leg and feet pain, DDD, chronic back pain, neuropathy bilateral legs/feet, falls, bronchitisi, past L rib fractures after fall off ladder, 2009 [facility] [place], History of Any Multi-Drug Resistant Organisms: None Reported Past Surgical History: Appendectomy, Joint Replacement Additional Past Surgical History / Comment(s): EGDs with last one done 01/16/17 , paracentesis, back injections, R thumb reattachment, circumcism. Past Anesthesia/Blood Transfusion Reactions: No Reported Reaction Additional Past Anesthesia/Blood Transfusion Reaction / Comment(s): Pt has received blood without reaction. Smoking Status: Current every day smoker - Past Family History Father Family Medical History: No Reported History Additional Family Medical History / Comment(s): Pt does not know his father's medical hx. Mother Family Medical History: No Reported History Additional Family Medical History / Comment(s): Mother is healthy. Medications and Allergies Home Medications Medication Instructions Recorded Confirmed Type Vitamin B Complex 1 cap PO DAILY 03/04/16 03/05/17 History Levothyroxine Sodium [Synthroid] 25 mcg PO DAILY 05/07/16 03/05/17 History Ascorbic Acid [Vitamin C] 500 mg PO DAILY 01/02/17 03/05/17 History Pantoprazole Sodium [Protonix] 20 mg PO BID 01/02/17 03/05/17 History Ferrous Sulfate [Feosol] 325 mg PO DAILY 01/15/17 03/05/17 History Sucralfate [Carafate] 1 gm PO QID 01/15/17 03/05/17 History Magnesium 200 mg PO DAILY 03/05/17 03/05/17 History Multivitamin [Men's Multi-Vitamin] 1 tab PO DAILY 03/05/17 03/05/17 History Potassium Chloride [Klor-Con 20] 20 meq PO BID 03/05/17 03/05/17 History Allergies Allergy/AdvReac Type Severity Reaction Status Date / Time No Known Allergies Allergy Verified 03/05/17 12:26 Physical Examination - Vital Signs Vital Signs: Vital Signs Temp Pulse Resp BP Pulse Ox 03/06/17 16:05 97.7 F 91 16 123/75 99 03/06/17 12:28 97.8 F 93 18 137/83 94 L 03/06/17 08:40 97.7 F 80 16 109/64 97 03/06/17 04:00 98.6 F 76 16 113/56 98 03/06/17 00:00 98.8 F 80 16 118/72 97 03/05/17 20:00 98.5 F 82 16 106/77 99 Intake and Output 03/06/17 03/06/17 03/06/17 06:59 14:59 22:59 Intake Total 2500 450 450 Output Total 300 400 300 Balance 2200 50 150 Intake: Intake, IV Titration 2500 Amount Sodium Chloride 0.9% 1, 500 000 ml @ 125 mls/hr IV . Q8H AWA Rx#:[id number] Sodium Chloride 0.9% 1, 2000 000 ml @ 999 mls/hr IV . Q1H1M AWA Rx#:[id number] Oral 450 450 Output: Urine 300 400 300 Other: Voiding Method Urinal Urinal Urinal Weight 74 kg 74 kg Patient Weight 03/07/17 06:59 Weight 74 kg - Constitutional General appearance: average body habitus, cooperative - EENT EENT: PERRL, mucous membranes moist - Respiratory Respiratory: lungs clear, normal breath sounds - Cardiovascular Cardiovascular: regular rate, normal S1, normal S2 Extremities: no peripheral edema bilaterally - Gastrointestinal Gastrointestinal: normoactive bowel sounds - Integumentary Integumentary: normal - Neurologic Cranial nerve examination: PERRL, EOMI, VFF, V1/V2/V3 grossly intact, face symmetric, tongue midline, intact gag reflex, intact corneal reflex, normal palatal elevation Speech examination: intact Sensorimotor examination: intact Detailed motor examination: grossly full strength in all extremities Motor examination - right side: 4/5: biceps, triceps, wrist flexion, wrist extension, training officer, hip flexors, knee extensors, dorsiflexion, toe extension (EHL) , plantarflexion Motor examination - left side: 4/5: biceps, triceps, wrist flexion, wrist extension, training officer, hip flexors, knee extensors, dorsiflexion, toe extension (EHL) , plantarflexion Detailed sensory examination: intact Reflex and gait examination: intact Reflexes: 1+: ankle, bicep, knee, tricep - Musculoskeletal Musculoskeletal: no pain - Psychiatric Psychiatric: mood/affect appropriate, cooperative Results - Laboratory Findings CBC and BMP: 03/06/17 06:14 03/06/17 06:14 Abnormal Lab Findings: Abnormal Labs 03/05/17 03/05/17 03/06/17 13:32 13:32 06:14 WBC 2.4 L RBC 3.35 L Hgb 11.3 L Hct 34.6 L MCV 103.1 H Plt Count 11 L* Lymphocytes # 0.3 L Sodium 136 L Chloride 110 H Carbon Dioxide 20 L BUN 8 L Creatinine 0.62 L Glucose 112 H Calcium 7.0 L 6.5 L* Magnesium 1.4 L Total Bilirubin 6.9 H 6.9 H AST 145 H 136 H Ammonia Total Protein 6.0 L Albumin 2.8 L 2.7 L 03/06/17 03/06/17 06:14 06:14 WBC 2.9 L RBC 3.29 L Hgb 10.9 L Hct 34.3 L MCV 104.3 H Plt Count 12 L* Lymphocytes # 0.6 L Sodium Chloride Carbon Dioxide BUN Creatinine Glucose Calcium Magnesium Total Bilirubin AST Ammonia 39 H Total Protein Albumin Assessment and Plan (1) Syncope and collapse Current Visit: Yes Status: Acute Code(s): R55 - SYNCOPE AND COLLAPSE SNOMED Code(s): 488857940 (2) Encephalopathy Current Visit: Yes Status: Acute Code(s): G93.40 - ENCEPHALOPATHY, UNSPECIFIED SNOMED Code(s): 50343564 (3) Alcoholic cirrhosis of liver Current Visit: Yes Status: Acute Code(s): K70.30 - ALCOHOLIC CIRRHOSIS OF LIVER WITHOUT ASCITES SNOMED Code(s): 164292164 (4) Seizure Current Visit: Yes Status: Acute Code(s): R56.9 - UNSPECIFIED CONVULSIONS SNOMED Code(s): 17664841 (5) Chronic pain Current Visit: No Status: Acute Code(s): G89.29 - OTHER CHRONIC PAIN SNOMED Code(s): 01355719 Plan: This patient is a 21-year-old male who was admitted to hospital for acute syncopal episode and collapse. Patient had fallen and struck his head and according to his mother had a 3-5 minutes seizure-like event. He was transferred to [facility] insult slowly transferred to [facility] for further evaluation and management. He has a history of alcohol liver cirrhosis. He is being evaluated by gastroenterology for sclerosing cholangitis. We recommend patient undergo routine EEG for further evaluation of seizure disorder. Would also continue close monitoring to rule out cardiac arrhythmia for this patient. Would also recommend cardiology consultation. Given his CAT scan findings of an acute left orbital blowout fracture we have recommended an ENT consultation for further evaluation. Patient is a very poor historian. He does have evidence also suggesting a acute metabolic encephalopathy. We will continue close neurological follow-up for this patient during this admission. His overall prognosis at this time remains guarded. Time with Patient: Greater than 30
[2017-03-07] MEDS: SODIUM CHLORIDE 0.9% 1,000 ML IV SCH ×3 (00:46→11:30)
[2017-03-07] MEDS: LEVOTHYROXINE 25 MCG TAB PO SCH (05:31)
[2017-03-07 07:11] LABS: Basophils # (A) 0.1 k/uL (0-0.2); Basophils % (A) 1 %; Eosinophils # (A) 0.2 k/uL (0-0.7); Eosinophils % (A) 2 %; HCT 41.7 % (39.0-53.0); HGB 13.2 gm/dL (13.0-17.5); Lymphocytes # (A) 1.1 k/uL (1.0-4.8); Lymphocytes % (A) 14 %; MCH 32.9 pg (25.0-35.0); MCHC 31.7 g/dL (31.0-37.0); MCV 103.8 fL (80.0-100.0); Macrocytosis Slight; Mean Platelet Volume 9.5; Monocytes # (A) 0.7 k/uL (0-1.0); Monocytes % (A) 9 %; Neutrophils # (A) 5.5 k/uL (1.3-7.7); Neutrophils % (A) 72 %; RBC 4.02 m/uL (4.30-5.90); RDW 15.1 % (11.5-15.5); WBC 7.6 k/uL (3.8-10.6)
[2017-03-07 07:14] LABS: Platelet Count 39 k/uL (150-450)
[2017-03-07] MEDS: CALCIUM CARB-VIT D 500MG-200UN 1 EACH TAB PO SCH ×3 (07:25→16:34)
[2017-03-07] MEDS: ASCORBIC ACID 500 MG TAB PO SCH (07:26)
[2017-03-07] MEDS: PANTOPRAZOLE 40 MG TABLET PO SCH ×2 (07:26→16:35)
[2017-03-07] MEDS: B COMPLEX-VIT C-VIT E-ZINC 1 EACH TAB PO SCH (07:26)
[2017-03-07] MEDS: FERROUS SULFATE 325 MG TAB PO SCH (07:26)
[2017-03-07] MEDS: MAGNESIUM OXIDE 400 MG TAB PO SCH (07:26)
[2017-03-07] MEDS: SUCRALFATE 1 GM TAB PO SCH ×4 (07:27→21:25)
[2017-03-07] MEDS: PROPRANOLOL 10 MG TAB PO SCH ×3 (07:27→21:25)
[2017-03-07] MEDS: POTASSIUM CHLORIDE ER 20 MEQ TAB.ER PO SCH ×2 (07:27→21:24)
[2017-03-07] MEDS: NICOTINE 21MG/24HR PATCH TRANSDERM SCH (07:27)
[2017-03-07] MEDS: LORazepam 2 MG/ML INJ IV PRN ×2 (07:29→21:28)
[2017-03-07 07:38] LABS: ALT 52 U/L (21-72); AST 192 U/L (17-59); Albumin 3.5 g/dL (3.5-5.0); Alkaline Phosphatase 142 U/L (38-126); Anion Gap 12 mmol/L; Blood Urea Nitrogen 10 mg/dL (9-20); Calcium 7.9 mg/dL (8.4-10.2); Carbon Dioxide 19 mmol/L (22-30); Chloride 108 mmol/L (98-107); Glucose 101 mg/dL (74-99); Sodium 139 mmol/L (137-145); Total Bilirubin 8.9 mg/dL (0.2-1.3); Total Protein 7.5 g/dL (6.3-8.2)
[2017-03-07 07:39] LABS: Potassium 4.6 mmol/L (3.5-5.1)
[2017-03-07] MEDS: THIAMINE 100 MG TAB PO SCH ×2 (11:30→16:34)
[2017-03-07] MEDS: MULTIVITAMINS, THERA 1 EACH TAB PO SCH (11:30)
--- NOTE | 2017-03-07 11:35 | P.PN ---
Subjective Progress Note Date: 03/07/17 patient is alert and oriented 3 no major events reported by nursing staff patient would like to go home no further bleed reported. Patient is denying chest pain, shortness breath, nausea, vomiting, abdominal pain, dizziness or lightheadedness Objective - Vital Signs Vital signs: Vital Signs Temp 99.6 F 03/07/17 07:00 Pulse 89 03/07/17 07:00 Resp 20 03/07/17 07:00 BP 136/94 03/07/17 07:00 Pulse Ox 96 03/07/17 07:00 Intake & Output 03/06/17 03/07/17 03/07/17 18:59 06:59 18:59 Intake Total 900 Output Total 700 900 Balance 200 -900 Weight 74 kg 74 kg Intake: Oral 900 Output: Urine 700 900 Other: Voiding Method Urinal Urinal # Voids 1 1 - Exam lungs clear to auscultation bilaterally Heart normal S1-S2 Abdomen soft no tenderness positive bowel sounds in all 4 quadrants Skin no new rash Psych alert and oriented following commands - Labs CBC & Chem 7: 03/07/17 06:48 03/07/17 06:48 Labs: Abnormal Lab Results - Last 24 Hours (Table) 03/07/17 03/07/17 Range/Units 06:48 06:48 RBC 4.02 L (4.30-5.90) m/uL MCV 103.8 H (80.0-100.0) fL Plt Count 39 L* D (150-450) k/uL Chloride 108 H (98-107) mmol/L Carbon Dioxide 19 L (22-30) mmol/L Glucose 101 H (74-99) mg/dL Calcium 7.9 L (8.4-10.2) mg/dL Total Bilirubin 8.9 H (0.2-1.3) mg/dL AST 192 H (17-59) U/L Alkaline Phosphatase 142 H (38-126) U/L Assessment and Plan Assessment: 1.recent head trauma with seizure activity. Patient was seen by neurology who recommended EEG which will be done today and will follow-up with neurology recommendation. 2.alcoholic liver cirrhosis with portal hypertension with continual evidence based medicine and follow-up with GI recommendation. 3. Intractable nausea and vomiting GI has kept the patient's nothing by mouth for possible EGD we will follow-up with the recommendation continue Protonix every 12 hours. 4. Alcohol abuse. 5. Serial thrombocytopenia likely secondary to liver disease with continue monitoring. 6. Elevated bilirubin and AST likely related to the above we'll continue monitoring. Discharge planning based on clinical progress
--- NOTE | 2017-03-07 17:05 | P.PN ---
Subjective Progress Note Date: 03/07/17 This patient is a 41-year-old male who is being evaluated for recent syncopal episode versus seizure. Patient sustained a fall at home and was noted by his mother as having possible seizure activity. He was admitted to hospital and is also being treated for alcohol leg liver cirrhosis and portal hypertension. His CAT scan of the brain did reveal a blowout fracture involving the left orbital region. We have recommended an ENT consultation for further evaluation. Due to his seizure-like activity we have ordered a routine EEG which was not completed today. Hopefully this will be done as soon as possible which likely will be Thursday. Patient is being followed up by gastroenterology as well for his severe alcoholic liver cirrhosis. We will await their further recommendations. Patient apparently was to be scheduled for possible EGD procedure. We will continue to monitor his neurological status closely. His overall prognosis at this time remains guarded. Patient is aware he should not be driving for appeared 6 months following any seizure or syncopal episode. We have once again reiterated this today to the patient in detail. We will continue to monitor his progress closely during this admission. Objective - Vital Signs Vital signs: Vital Signs Temp 99 F 03/07/17 14:46 Pulse 91 03/07/17 14:46 Resp 18 03/07/17 14:46 BP 131/88 03/07/17 14:46 Pulse Ox 96 03/07/17 14:46 Intake & Output 03/06/17 03/07/17 03/07/17 18:59 06:59 18:59 Intake Total 900 Output Total 700 900 Balance 200 -900 Weight 74 kg 74 kg Intake: Oral 900 Output: Urine 700 900 Other: Voiding Method Urinal Urinal # Voids 1 1 - Exam Physical examination: PHYSICAL EXAMINATION: Patient is resting comfortably in bed. VITAL SIGNS: Blood pressure is [131/88]. Heart rate is [91]. Respiration is [18] . Temperature is [99.0]. HEENT: Head is atraumatic, neck is supple, there were no carotid bruits. CHEST: Lungs are clear to auscultation and percussion. CARDIAC: S1, S2 normal rate and rhythm. There is no murmur. ABDOMEN: Soft and nontender. Bowel sounds are present. EXTREMITIES: There is no pedal edema. Peripheral pulses are present. Neurological examination: Patient has a nonfocal neurological examination which remains unchanged from yesterday. - Labs CBC & Chem 7: 03/07/17 06:48 03/07/17 06:48 Labs: Abnormal Lab Results - Last 24 Hours (Table) 03/07/17 03/07/17 Range/Units 06:48 06:48 RBC 4.02 L (4.30-5.90) m/uL MCV 103.8 H (80.0-100.0) fL Plt Count 39 L* D (150-450) k/uL Chloride 108 H (98-107) mmol/L Carbon Dioxide 19 L (22-30) mmol/L Glucose 101 H (74-99) mg/dL Calcium 7.9 L (8.4-10.2) mg/dL Total Bilirubin 8.9 H (0.2-1.3) mg/dL AST 192 H (17-59) U/L Alkaline Phosphatase 142 H (38-126) U/L Assessment and Plan (1) Syncope and collapse Current Visit: Yes Status: Acute Code(s): R55 - SYNCOPE AND COLLAPSE SNOMED Code(s): 905871251 (2) Encephalopathy Current Visit: Yes Status: Acute Code(s): G93.40 - ENCEPHALOPATHY, UNSPECIFIED SNOMED Code(s): 82527661 (3) Alcoholic cirrhosis of liver Current Visit: Yes Status: Acute Code(s): K70.30 - ALCOHOLIC CIRRHOSIS OF LIVER WITHOUT ASCITES SNOMED Code(s): 925530363 (4) Seizure Current Visit: Yes Status: Acute Code(s): R56.9 - UNSPECIFIED CONVULSIONS SNOMED Code(s): 61892775 (5) Chronic pain Current Visit: No Status: Acute Code(s): G89.29 - OTHER CHRONIC PAIN SNOMED Code(s): 77960527 Plan: This patient is a 41-year-old male being evaluated for recent episode of syncope versus seizure. We're waiting a routine EEG to be done for further assessment for this patient. His CAT scan of the brain revealed a left orbital blowout fracture. We have recommended a ENT consultation for this condition. Patient also has alcohol liver cirrhosis and is being seen by gastroenterology for possible EGD procedure. His overall prognosis at this time remains guarded. We will continue close monitoring of his neurological status for any further seizure-like events.
[2017-03-08] MEDS: SODIUM CHLORIDE 0.9% 1,000 ML IV SCH ×4 (01:55→20:53)
[2017-03-08] MEDS: HYDROcodone/APAP 7.5-325MG 1 EACH TAB PO PRN ×3 (04:20→17:45)
[2017-03-08] MEDS: LEVOTHYROXINE 25 MCG TAB PO SCH (05:49)
[2017-03-08] MEDS: LORazepam 2 MG/ML INJ IV PRN (07:48)
[2017-03-08] MEDS: NICOTINE 21MG/24HR PATCH TRANSDERM SCH (07:49)
[2017-03-08] MEDS: PROPRANOLOL 10 MG TAB PO SCH ×3 (07:49→20:35)
[2017-03-08] MEDS: CALCIUM CARB-VIT D 500MG-200UN 1 EACH TAB PO SCH ×3 (07:49→16:22)
[2017-03-08] MEDS: POTASSIUM CHLORIDE ER 20 MEQ TAB.ER PO SCH ×2 (07:50→20:35)
[2017-03-08] MEDS: FERROUS SULFATE 325 MG TAB PO SCH (07:50)
[2017-03-08] MEDS: ASCORBIC ACID 500 MG TAB PO SCH (07:51)
[2017-03-08] MEDS: MAGNESIUM OXIDE 400 MG TAB PO SCH (07:51)
[2017-03-08] MEDS: PANTOPRAZOLE 40 MG TABLET PO SCH ×2 (07:51→16:22)
[2017-03-08] MEDS: B COMPLEX-VIT C-VIT E-ZINC 1 EACH TAB PO SCH (07:51)
[2017-03-08] MEDS: SUCRALFATE 1 GM TAB PO SCH ×4 (07:51→20:35)
[2017-03-08 08:06] LABS: Basophils % (A) 1 %; Eosinophils % (A) 1 %; HCT 35.4 % (39.0-53.0); HGB 11.3 gm/dL (13.0-17.5); Lymphocytes # (A) 0.4 k/uL (1.0-4.8); Lymphocytes % (A) 13 %; MCH 33.2 pg (25.0-35.0); MCHC 31.9 g/dL (31.0-37.0); Macrocytosis Slight; Mean Platelet Volume 8.5; Monocytes # (A) 0.2 k/uL (0-1.0); Monocytes % (A) 8 %; Neutrophils # (A) 2.2 k/uL (1.3-7.7); Neutrophils % (A) 74 %; RDW 14.3 % (11.5-15.5)
[2017-03-08 08:09] LABS: Platelet Count 27 k/uL (150-450)
[2017-03-08 08:33] LABS: ALT 53 U/L (21-72); AST 128 U/L (17-59); Albumin 2.6 g/dL (3.5-5.0); Alkaline Phosphatase 101 U/L (38-126); Anion Gap 9 mmol/L; Blood Urea Nitrogen 8 mg/dL (9-20); Calcium 7.5 mg/dL (8.4-10.2); Carbon Dioxide 18 mmol/L (22-30); Chloride 112 mmol/L (98-107); Glucose 95 mg/dL (74-99); Potassium 4.3 mmol/L (3.5-5.1); Sodium 139 mmol/L (137-145); Total Bilirubin 7.6 mg/dL (0.2-1.3); Total Protein 5.8 g/dL (6.3-8.2)
[2017-03-08] MEDS: THIAMINE 100 MG TAB PO SCH ×2 (11:32→16:22)
[2017-03-08] MEDS: MULTIVITAMINS, THERA 1 EACH TAB PO SCH (11:32)
--- NOTE | 2017-03-08 15:37 | P.PN ---
Subjective Progress Note Date: 03/08/17 No major events reported by nursing staff patient is still at baseline mental status where he follows commands denying chest pain shortness breath nausea vomiting without pain dizziness lightheadedness or blurry vision. Patient's tolerating diet without difficulty EEG is still pending and patient has not been seen by ENT yet Objective - Vital Signs Vital signs: Vital Signs Temp 98.6 F 03/08/17 07:00 Pulse 67 03/08/17 07:00 Resp 18 03/08/17 07:00 BP 114/73 03/08/17 07:00 Pulse Ox 98 03/08/17 07:00 Intake & Output 03/07/17 03/08/17 03/08/17 18:59 06:59 18:59 Output Total 900 Balance -900 Weight 74 kg 72.121 kg Output: Urine 900 Other: Voiding Method Urinal # Voids 3 2 1 - Exam lungs clear to auscultation bilaterally Heart normal S1-S2 Abdomen soft no tenderness positive bowel sounds in all 4 quadrants Skin no new rash Psych alert and oriented following commands - Labs CBC & Chem 7: 03/08/17 07:24 03/08/17 07:24 Labs: Abnormal Lab Results - Last 24 Hours (Table) 03/08/17 03/08/17 Range/Units 07:24 07:24 WBC 3.0 L (3.8-10.6) k/uL RBC 3.40 L (4.30-5.90) m/uL Hgb 11.3 L (13.0-17.5) gm/dL Hct 35.4 L (39.0-53.0) % MCV 104.0 H (80.0-100.0) fL Plt Count 27 L* (150-450) k/uL Lymphocytes # 0.4 L (1.0-4.8) k/uL Chloride 112 H (98-107) mmol/L Carbon Dioxide 18 L (22-30) mmol/L BUN 8 L (9-20) mg/dL Calcium 7.5 L (8.4-10.2) mg/dL Total Bilirubin 7.6 H (0.2-1.3) mg/dL AST 128 H (17-59) U/L Total Protein 5.8 L (6.3-8.2) g/dL Albumin 2.6 L (3.5-5.0) g/dL Assessment and Plan Assessment: 1.recent head trauma with seizure activity. Patient was seen by neurology who recommended EEG which will be done tomorrow and will follow-up with neurology recommendation. 2.alcoholic liver cirrhosis with portal hypertension with continual evidence based medicine I discussed the case with GI who recommended conservative management at this point and no further evaluation needed 3. Intractable nausea and vomiting seems to be improving patient is tolerating diet as it was advanced by GI continue Protonix every 12 hours. 4. Alcohol abuse. 5. severe thrombocytopenia likely secondary to liver disease with continue monitoring. 6. Elevated bilirubin and AST likely related to the above we'll continue monitoring. We will repeat blood work in the morning Discharge planning based on clinical progress ENT declined seen patient and stated that they will follow-up outpatient on the patient were waiting on EEG once it stun cleared by neurology patient can be discharged
--- NOTE | 2017-03-08 17:38 | P.PN ---
Subjective Progress Note Date: 03/08/17 This patient is a 41-year-old male who is being evaluated for recent syncopal episode versus seizure. Patient sustained a fall at home and was noted by his mother as having possible seizure activity. He was admitted to hospital and is also being treated for alcohol leg liver cirrhosis and portal hypertension. His CAT scan of the brain did reveal a blowout fracture involving the left orbital region. We have recommended an ENT consultation for further evaluation. According to Dr. Mchugh ENT was contacted today and they reviewed his CAT scan films. He is recommended to follow-up as outpatient and he will not be seen by ENT during this admission. This was documented by the nursing staff today as well as the plan by Dr. Mcmillan from ENT. Due to his seizure- like activity we have ordered a routine EEG which was not completed yesterday. Hopefully this will be done as soon as possible which likely will be Thursday. Patient is being followed up by gastroenterology as well for his severe alcoholic liver cirrhosis. We will await their further recommendations. We will continue to monitor his neurological status closely. His pain level seems to be doing much better today. His overall prognosis at this time remains guarded. Patient is aware he should not be driving for appeared 6 months following any seizure or syncopal episode. We have once again reiterated this today to the patient in detail. We will continue to monitor his progress closely during this admission. Objective - Vital Signs Vital signs: Vital Signs Temp 98.6 F 03/08/17 07:00 Pulse 67 03/08/17 07:00 Resp 18 03/08/17 07:00 BP 114/73 03/08/17 07:00 Pulse Ox 98 03/08/17 07:00 Intake & Output 03/07/17 03/08/17 03/08/17 18:59 06:59 18:59 Output Total 900 Balance -900 Weight 74 kg 72.121 kg Output: Urine 900 Other: Voiding Method Urinal # Voids 3 2 1 - Exam Physical examination: PHYSICAL EXAMINATION: Patient is resting comfortably in bed. VITAL SIGNS: Blood pressure is [114/73 ]. Heart rate is [67]. Respiration is [18 ]. Temperature is [98.7]. HEENT: Head is atraumatic, neck is supple, there were no carotid bruits. CHEST: Lungs are clear to auscultation and percussion. CARDIAC: S1, S2 normal rate and rhythm. There is no murmur. ABDOMEN: Soft and nontender. Bowel sounds are present. EXTREMITIES: There is no pedal edema. Peripheral pulses are present. Neurological examination: Patient has a nonfocal neurological examination which remains unchanged from yesterday. - Labs CBC & Chem 7: 03/08/17 07:24 03/08/17 07:24 Labs: Abnormal Lab Results - Last 24 Hours (Table) 03/08/17 03/08/17 Range/Units 07:24 07:24 WBC 3.0 L (3.8-10.6) k/uL RBC 3.40 L (4.30-5.90) m/uL Hgb 11.3 L (13.0-17.5) gm/dL Hct 35.4 L (39.0-53.0) % MCV 104.0 H (80.0-100.0) fL Plt Count 27 L* (150-450) k/uL Lymphocytes # 0.4 L (1.0-4.8) k/uL Chloride 112 H (98-107) mmol/L Carbon Dioxide 18 L (22-30) mmol/L BUN 8 L (9-20) mg/dL Calcium 7.5 L (8.4-10.2) mg/dL Total Bilirubin 7.6 H (0.2-1.3) mg/dL AST 128 H (17-59) U/L Total Protein 5.8 L (6.3-8.2) g/dL Albumin 2.6 L (3.5-5.0) g/dL Assessment and Plan (1) Syncope and collapse Current Visit: Yes Status: Acute Code(s): R55 - SYNCOPE AND COLLAPSE SNOMED Code(s): 276332807 (2) Encephalopathy Current Visit: Yes Status: Acute Code(s): G93.40 - ENCEPHALOPATHY, UNSPECIFIED SNOMED Code(s): 28237369 (3) Alcoholic cirrhosis of liver Current Visit: Yes Status: Acute Code(s): K70.30 - ALCOHOLIC CIRRHOSIS OF LIVER WITHOUT ASCITES SNOMED Code(s): 118346948 (4) Seizure Current Visit: Yes Status: Acute Code(s): R56.9 - UNSPECIFIED CONVULSIONS SNOMED Code(s): 81574902 (5) Chronic pain Current Visit: No Status: Acute Code(s): G89.29 - OTHER CHRONIC PAIN SNOMED Code(s): 41204987 Plan: This patient is a 41-year-old male who is being evaluated for recent syncopal episode and possible seizure. He is hopefully to have an EEG done tomorrow. His CAT scan of the brain revealed a left orbital blowout fracture which is to be evaluated by Dr. Mcmillan in the ENT clinic upon discharge. Patient is also awaiting clearance following his EEG for possible discharge home. He is scheduled to have EEG tomorrow and we will review this as soon as possible. He is advised that he cannot drive in the [facility] for appeared to 6 months following his last syncopal episode and/or seizure. 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 We will continue to follow his progress closely during this admission. Case was discussed at length with the patient and his nurse. His overall prognosis at this time remains guarded.
[2017-03-08] MEDS: LORazepam 1 MG TAB PO PRN (17:45)
[2017-03-09] MEDS: HYDROcodone/APAP 7.5-325MG 1 EACH TAB PO PRN ×3 (00:16→22:09)
[2017-03-09] MEDS: LORazepam 1 MG TAB PO PRN ×5 (00:17→22:10)
[2017-03-09] MEDS: MORPHINE SULFATE 5 MG/ML SYRINGE IVP PRN ×3 (04:20→19:54)
[2017-03-09] MEDS: SODIUM CHLORIDE 0.9% 1,000 ML IV SCH ×2 (06:08→12:29)
[2017-03-09] MEDS: LEVOTHYROXINE 25 MCG TAB PO SCH (06:11)
[2017-03-09] MEDS: SUCRALFATE 1 GM TAB PO SCH ×4 (07:44→21:33)
--- NOTE | 2017-03-09 08:04 | P.CONS ---
History of Present Illness - Reason for Consult Consult date: 03/06/17 Liver disease - History of Present Illness The patient is a 41-year-old male with history of alcoholic liver disease and portal hypertension and previous episodes of GI bleeding and anemia with multiple admissions in the recent past for GI bleeding including bleeding from esophageal varices that required banding, was transferred this time from another facility with history of abnormal labs. The patient, apparently, had syncope and he is getting evaluated for alcohol withdrawal and possible seizure disorder. There is no history of GI bleeding at this time. The patient appeared to terminal last and showed some agitation and confusion at the time of my evaluation today. Review of Systems 12 point review of systems is, otherwise not revealing. Patient is not reliable in his answers at this time because of his overall mental status. Past Medical History Past Medical History: GERD/Reflux, GI Bleed, Hypertension, Liver Disease, Thyroid Disorder Additional Past Medical History / Comment(s): Liver cirrhosis, portal htn, ETOH abuse, esophageal varicies, upper GI bleed, chronic thrombocytopenia, coagulopathy, pancytopenia, ascities, spinal stenosis: back/leg and feet pain, DDD, chronic back pain, neuropathy bilateral legs/feet, falls, bronchitisi, past L rib fractures after fall off ladder, 2009 Guillian Jarreau, History of Any Multi-Drug Resistant Organisms: None Reported Past Surgical History: Appendectomy, Joint Replacement Additional Past Surgical History / Comment(s): EGDs with last one done 01/16/17 , paracentesis, back injections, R thumb reattachment, circumcism. Past Anesthesia/Blood Transfusion Reactions: No Reported Reaction Additional Past Anesthesia/Blood Transfusion Reaction / Comm: Pt has received blood without reaction. Smoking Status: Current every day smoker - Past Family History Father Family Medical History: No Reported History Additional Family Medical History / Comment(s): Pt does not know his father's medical hx. Mother Family Medical History: No Reported History Additional Family Medical History / Comment(s): Mother is healthy. Medications and Allergies Home Medications Medication Instructions Recorded Confirmed Type Vitamin B Complex 1 cap PO DAILY 03/04/16 03/05/17 History Levothyroxine Sodium [Synthroid] 25 mcg PO DAILY 05/07/16 03/05/17 History Ascorbic Acid [Vitamin C] 500 mg PO DAILY 01/02/17 03/05/17 History Pantoprazole Sodium [Protonix] 20 mg PO BID 01/02/17 03/05/17 History Ferrous Sulfate [Feosol] 325 mg PO DAILY 01/15/17 03/05/17 History Sucralfate [Carafate] 1 gm PO QID 01/15/17 03/05/17 History Magnesium 200 mg PO DAILY 03/05/17 03/05/17 History Multivitamin [Men's Multi-Vitamin] 1 tab PO DAILY 03/05/17 03/05/17 History Potassium Chloride [Klor-Con 20] 20 meq PO BID 03/05/17 03/05/17 History Allergies Allergy/AdvReac Type Severity Reaction Status Date / Time No Known Allergies Allergy Verified 03/05/17 12:26 Physical Exam Vitals: Vital Signs Temp Pulse Pulse Resp BP BP Pulse Ox 03/06/17 16:05 97.7 F 91 16 123/75 99 03/06/17 12:28 97.8 F 93 18 137/83 94 L 03/06/17 08:40 97.7 F 80 16 109/64 97 03/06/17 04:00 98.6 F 76 16 113/56 98 03/06/17 00:00 98.8 F 80 16 118/72 97 03/05/17 20:00 98.5 F 82 16 106/77 99 03/05/17 18:24 99.2 F 88 14 117/73 96 Intake and Output 03/06/17 03/06/17 03/06/17 06:59 14:59 22:59 Intake Total 2500 450 450 Output Total 300 400 300 Balance 2200 50 150 Intake: Intake, IV Titration 2500 Amount Sodium Chloride 0.9% 1, 500 000 ml @ 125 mls/hr IV . Q8H [facility] Rx#:[id number] Sodium Chloride 0.9% 1, 2000 000 ml @ 999 mls/hr IV . Q1H1M [facility] Rx#:[id number] Oral 450 450 Output: Urine 300 400 300 Other: Voiding Method Urinal Urinal Urinal Weight 74 kg 74 kg Patient Weight 03/07/17 06:59 Weight 74 kg General: Appeared stated age, restless and little tremulous but in no acute distress Head and neck: Normocephalic and atraumatic. Conjunctivae pink and sclerae icteric. Mucous membranes moist and pink. No masses in the neck or tracheal shifts Lungs: Clear to auscultation with no dullness to percussion Heart: Regular, no abnormal sounds, murmurs, gallops or friction rubs Abdomen: Soft, no masses, organomegalies or tenderness, bowel sounds present Extremities: No clubbing, cyanosis or edema Neurologic: Alert. Restless, agitated and somewhat confused. Cranial nerves grossly intact. No gross sensory or motor abnormalities Results CBC & Chem 7: 03/08/17 07:24 03/08/17 07:24 Labs: Abnormal Lab Results - Last 24 Hours (Table) 03/06/17 03/06/17 03/06/17 Range/Units 06:14 06:14 06:14 WBC 2.9 L (3.8-10.6) k/uL RBC 3.29 L (4.30-5.90) m/uL Hgb 10.9 L (13.0-17.5) gm/dL Hct 34.3 L (39.0-53.0) % MCV 104.3 H (80.0-100.0) fL Plt Count 12 L* (150-450) k/uL Lymphocytes # 0.6 L (1.0-4.8) k/uL Chloride 110 H (98-107) mmol/L Carbon Dioxide 20 L (22-30) mmol/L BUN 8 L (9-20) mg/dL Creatinine 0.62 L (0.66-1.25) mg/dL Calcium 6.5 L* (8.4-10.2) mg/dL Magnesium 1.4 L (1.6-2.3) mg/dL Total Bilirubin 6.9 H (0.2-1.3) mg/dL AST 136 H (17-59) U/L Ammonia 39 H (<30) umol/L Total Protein 6.0 L (6.3-8.2) g/dL Albumin 2.7 L (3.5-5.0) g/dL Assessment and Plan Assessment: 41-year-old male with alcoholic liver disease and picture of alcoholic hepatitis and alcohol withdrawal and possible hepatic encephalopathy. No evidence of GI bleeding at this time. Plan: Agree with your current management. The patient will be monitored closely for alcohol withdrawal and bleeding while providing supportive care. Neurologic evaluation is in progress as well.
[2017-03-09 08:14] LABS: Basophils % (A) 1 %; Eosinophils # (A) 0.1 k/uL (0-0.7); Eosinophils % (A) 4 %; HCT 34.2 % (39.0-53.0); HGB 10.5 gm/dL (13.0-17.5); Hypochromasia Slight; Lymphocytes # (A) 0.5 k/uL (1.0-4.8); Lymphocytes % (A) 21 %; MCH 32.9 pg (25.0-35.0); MCHC 30.7 g/dL (31.0-37.0); Macrocytosis Moderate; Mean Platelet Volume 10.3; Monocytes # (A) 0.2 k/uL (0-1.0); Monocytes % (A) 9 %; Neutrophils # (A) 1.4 k/uL (1.3-7.7); Neutrophils % (A) 63 %; RBC 3.19 m/uL (4.30-5.90); RDW 15.4 % (11.5-15.5); WBC 2.3 k/uL (3.8-10.6)
[2017-03-09 08:35] LABS: Platelet Count 29 k/uL (150-450)
[2017-03-09 08:38] LABS: ALT 55 U/L (21-72); AST 112 U/L (17-59); Albumin 2.4 g/dL (3.5-5.0); Alkaline Phosphatase 87 U/L (38-126); Anion Gap 7 mmol/L; Blood Urea Nitrogen 5 mg/dL (9-20); Calcium 7.4 mg/dL (8.4-10.2); Carbon Dioxide 18 mmol/L (22-30); Chloride 113 mmol/L (98-107); Glucose 106 mg/dL (74-99); Potassium 4.1 mmol/L (3.5-5.1); Sodium 138 mmol/L (137-145); Total Bilirubin 6.5 mg/dL (0.2-1.3); Total Protein 5.6 g/dL (6.3-8.2)
[2017-03-09] MEDS: FERROUS SULFATE 325 MG TAB PO SCH (09:13)
[2017-03-09] MEDS: POTASSIUM CHLORIDE ER 20 MEQ TAB.ER PO SCH ×2 (09:13→19:54)
[2017-03-09] MEDS: MAGNESIUM OXIDE 400 MG TAB PO SCH (09:13)
[2017-03-09] MEDS: CALCIUM CARB-VIT D 500MG-200UN 1 EACH TAB PO SCH ×3 (09:13→17:39)
[2017-03-09] MEDS: PANTOPRAZOLE 40 MG TABLET PO SCH ×2 (09:13→17:39)
[2017-03-09] MEDS: B COMPLEX-VIT C-VIT E-ZINC 1 EACH TAB PO SCH (09:13)
[2017-03-09] MEDS: ASCORBIC ACID 500 MG TAB PO SCH (09:13)
[2017-03-09] MEDS: NICOTINE 21MG/24HR PATCH TRANSDERM SCH (09:13)
[2017-03-09] MEDS: PROPRANOLOL 10 MG TAB PO SCH ×3 (09:13→21:33)
--- NOTE | 2017-03-09 10:46 | P.CON ---
Consult Note - . Consult date: 03/09/17 Assessment/Plan:: Patient seen and examined. He is a 41-year-old male with chronic back pain who sustained multiple facial fractures after trauma and was admitted for previous. Patient has a chronic pain specialist whom he sees who prescribes him morphine sulfate 60 mg three times per day. Patient has considered undergoing injections for chronic low back pain but is not interested at this time. He does not need any prescriptions and can return to see his regular pain specialist. Please call back with any further questions.
[2017-03-09] MEDS: MULTIVITAMINS, THERA 1 EACH TAB PO SCH (12:28)
[2017-03-09] MEDS: THIAMINE 100 MG TAB PO SCH ×2 (12:29→15:27)
--- NOTE | 2017-03-09 17:52 | EEG ---
ELECTROENCEPHALOGRAM REPORT DATE OF EE03/09/2017 ELECTROENCEPHALOGRAPHIC EXAMINATION REPORT: INDICATION FOR EXAMINATION: This patient is a 41-year-old male being evaluated for syncope versus seizure. The patient has history of alcoholic liver disease and alcoholic cirrhosis and portal hypertension. AGE: [age]. EEG FINDINGS: A routine 21-channel awake digital EEG recording was accomplished utilizing the 10-20 international system with bipolar and referential montages. The background activity in the most alert resting state consists of a low to medium amplitude, fairly well developed well sustained 8 Hz activity over the posterior head regions. This posterior rhythm attenuates to eye opening. There is a small amount of low amplitude 18-20 Hz beta activity seen maximally over the anterior head regions. Muscle and movement artifact was observed on a few occasions during the tracing. Hyperventilation was not performed. Photic stimulation at flash frequencies of 2-30 Hz produced a minimal occipital driving response. No epileptiform discharges were seen. IMPRESSION: This EEG is within normal limits for the patient's age. The EEG failed to reveal any focal, lateralized, or epileptiform abnormalities. Clinical correlation is recommended. MMODL / IJN: [id number] /
--- NOTE | 2017-03-09 18:37 | P.PN ---
Subjective Progress Note Date: 03/09/17 This patient is a 41-year-old male who is being evaluated for recent syncopal episode versus seizure. Patient sustained a fall at home and was noted by his mother as having possible seizure activity. He was admitted to hospital and is also being treated for alcohol leg liver cirrhosis and portal hypertension. His CAT scan of the brain did reveal a blowout fracture involving the left orbital region. We have recommended an ENT consultation for further evaluation. According to Dr. Mchugh ENT was contacted today and they reviewed his CAT scan films. He is recommended to follow-up as outpatient and he will not be seen by ENT during this admission. This was documented by the nursing staff today as well as the plan by Dr. Mcmillan from ENT. Due to his seizure- like activity we have ordered a routine EEG which was not completed over the weekend. He did have the EEG done today and we did review this study. EEG is within normal limits for his age with no evidence of any epileptiform discharge. We discussed with the nursing staff and apparently he is to be seen by psychiatry for further evaluation of his competency. Family apparently wants him to go into a drug rehabilitation program for his alcohol is him. Patient is being followed up by gastroenterology as well for his severe alcoholic liver cirrhosis. We will await their further recommendations. We will continue to monitor his neurological status closely. His pain level seems to be doing much better today. He was seen by the pain specialist but does not require any further intervention at this time. His overall prognosis at this time remains guarded. Patient is aware he should not be driving for appeared 6 months following any seizure or syncopal episode. We have once again reiterated this today to the patient in detail. We will continue to monitor his progress closely during this admission. We'll await further recommendations from his admitting physicians. Objective - Vital Signs Vital signs: Vital Signs Temp 97.9 F 03/09/17 15:00 Pulse 73 03/09/17 16:00 Resp 16 03/09/17 16:00 BP 121/77 03/09/17 15:00 Pulse Ox 99 03/09/17 15:00 Intake & Output 03/08/17 03/09/17 03/09/17 18:59 06:59 18:59 Intake Total 250 2205 Output Total 300 Balance 250 1905 Weight 72.121 kg 70.45 kg Intake: Intake, IV Titration 250 625 Amount Sodium Chloride 0.9% 1, 250 625 000 ml @ 125 mls/hr IV . Q8H [facility] Rx#:[id number] Oral 1580 Output: Urine 300 Other: Voiding Method Toilet Toilet Urinal Urinal # Voids 2 3 # Bowel Movements 1 - Exam Physical examination: PHYSICAL EXAMINATION: Patient is resting comfortably in bed. VITAL SIGNS: Blood pressure is [121/77]. Heart rate is [73]. Respiration is [16] . Temperature is [97.9]. HEENT: Head is atraumatic, neck is supple, there were no carotid bruits. CHEST: Lungs are clear to auscultation and percussion. CARDIAC: S1, S2 normal rate and rhythm. There is no murmur. ABDOMEN: Soft and nontender. Bowel sounds are present. EXTREMITIES: There is no pedal edema. Peripheral pulses are present. Neurological examination: Patient has a nonfocal neurological examination which remains unchanged from yesterday. - Labs CBC & Chem 7: 03/09/17 07:30 03/09/17 07:30 Labs: Abnormal Lab Results - Last 24 Hours (Table) 03/09/17 03/09/17 03/09/17 Range/Units 07:30 07:30 07:30 WBC 2.3 L (3.8-10.6) k/uL RBC 3.19 L (4.30-5.90) m/uL Hgb 10.5 L (13.0-17.5) gm/dL Hct 34.2 L (39.0-53.0) % MCV 107.0 H (80.0-100.0) fL MCHC 30.7 L (31.0-37.0) g/dL Plt Count 29 L* (150-450) k/uL Lymphocytes # 0.5 L (1.0-4.8) k/uL Chloride 113 H (98-107) mmol/L Carbon Dioxide 18 L (22-30) mmol/L BUN 5 L (9-20) mg/dL Glucose 106 H (74-99) mg/dL Calcium 7.4 L (8.4-10.2) mg/dL Total Bilirubin 6.5 H (0.2-1.3) mg/dL AST 112 H (17-59) U/L Ammonia 43 H (<30) umol/L Total Protein 5.6 L (6.3-8.2) g/dL Albumin 2.4 L (3.5-5.0) g/dL Assessment and Plan (1) Syncope and collapse Current Visit: Yes Status: Acute Code(s): R55 - SYNCOPE AND COLLAPSE SNOMED Code(s): 229158755 (2) Encephalopathy Current Visit: Yes Status: Acute Code(s): G93.40 - ENCEPHALOPATHY, UNSPECIFIED SNOMED Code(s): 16988119 (3) Alcoholic cirrhosis of liver Current Visit: Yes Status: Acute Code(s): K70.30 - ALCOHOLIC CIRRHOSIS OF LIVER WITHOUT ASCITES SNOMED Code(s): 649785714 (4) Seizure Current Visit: Yes Status: Acute Code(s): R56.9 - UNSPECIFIED CONVULSIONS SNOMED Code(s): 07495402 (5) Chronic pain Current Visit: No Status: Acute Code(s): G89.29 - OTHER CHRONIC PAIN SNOMED Code(s): 91532014 Plan: This patient is a 41-year-old male being evaluated for syncope versus seizure. He underwent a routine EEG today the results of which came back normal with no evidence of any epileptiform discharges. Apparently the patient is to be evaluated by psychiatry as family would like him to go to a drug rehabilitation program for his alcohol is some. We will await further recommendations from the psychiatrist. We did review the results of the EEG today with the patient in detail. He was seen by pain management and was offered epidural injections but he has declined at this time. We will continue to follow his progress closely during this admission. His overall prognosis at this time remains guarded.
[2017-03-10] MEDS: SODIUM CHLORIDE 0.9% 1,000 ML IV SCH ×3 (00:31→12:59)
[2017-03-10] MEDS: LORazepam 1 MG TAB PO PRN ×2 (02:18→09:56)
[2017-03-10] MEDS: MORPHINE SULFATE 5 MG/ML SYRINGE IVP PRN ×4 (02:19→23:57)
[2017-03-10] MEDS: HYDROcodone/APAP 7.5-325MG 1 EACH TAB PO PRN ×3 (04:11→23:03)
[2017-03-10] MEDS: PROPRANOLOL 10 MG TAB PO SCH ×3 (08:29→21:59)
[2017-03-10] MEDS: SUCRALFATE 1 GM TAB PO SCH ×4 (08:29→21:59)
[2017-03-10] MEDS: PANTOPRAZOLE 40 MG TABLET PO SCH ×2 (08:30→16:50)
[2017-03-10] MEDS: MAGNESIUM OXIDE 400 MG TAB PO SCH (08:30)
[2017-03-10] MEDS: ASCORBIC ACID 500 MG TAB PO SCH (08:30)
[2017-03-10] MEDS: POTASSIUM CHLORIDE ER 20 MEQ TAB.ER PO SCH ×2 (08:30→21:59)
[2017-03-10] MEDS: FERROUS SULFATE 325 MG TAB PO SCH (08:30)
[2017-03-10] MEDS: CALCIUM CARB-VIT D 500MG-200UN 1 EACH TAB PO SCH ×3 (08:30→16:50)
[2017-03-10] MEDS: NICOTINE 21MG/24HR PATCH TRANSDERM SCH (08:30)
[2017-03-10] MEDS: B COMPLEX-VIT C-VIT E-ZINC 1 EACH TAB PO SCH (08:30)
[2017-03-10] MEDS: LEVOTHYROXINE 25 MCG TAB PO SCH (08:31)
[2017-03-10 10:55] LABS: HCT 33.3 % (39.0-53.0); HGB 10.8 gm/dL (13.0-17.5); Hypochromasia Slight; MCH 33.5 pg (25.0-35.0); MCHC 32.3 g/dL (31.0-37.0); MCV 103.7 fL (80.0-100.0); Macrocytosis Slight; Mean Platelet Volume 9.8; RBC 3.21 m/uL (4.30-5.90); RDW 14.9 % (11.5-15.5); WBC 2.4 k/uL (3.8-10.6)
[2017-03-10 10:58] LABS: Platelet Count 36 k/uL (150-450)
[2017-03-10 11:36] VITALS: BMI 23.5
[2017-03-10] MEDS: MULTIVITAMINS, THERA 1 EACH TAB PO SCH (11:57)
[2017-03-10] MEDS: THIAMINE 100 MG TAB PO SCH ×2 (11:57→16:50)
--- NOTE | 2017-03-10 13:02 | P.PN ---
Subjective Progress Note Date: 03/09/17 This is a 40-year-old male patient of Dr. Sarmad Linn. He has history of alcohol liver cirrhosis with portal hypertension and previous GI bleeding, hypertension and gastritis, pancreatitis. He is also known to Dr. Smart from previous EGDs in the past. This was last performed in 01/16/2017 with small distal esophageal varices. He states his last alcohol ingestion was 22 February 2017 . He was admitted for acute GI bleed in jan 2016 and mar 2016. He had another episode of coffee-ground emesis 2 weeks ago and was admitted in the ICU. He denies any alcohol use in the past week but did drink 2 week ago. He denies any nonsteroidal anti-inflammatory or aspirin use. He presented to [facility] as transfer from outside facility for evaluation of abnormal labs. According to the patient he was feeling unwell for the past 1 month with abdominal pain and muscle cramps. He stood up from the bed use the restroom and hit his head to the door of the bathroom. He does not recall the event that led to head injury. Mother states that patient had a seizure and lost his consciousness with the event lasted for 3-5 minutes. He was transferred here to [facility] for evaluation of abnormal labs, sclerosing cholangitis seen on the computed tomography scan, significant abdominal pain and head injury. Magnesium and potassium was repleted and according to the current labs patient's potassium is 3.5 and mag is 1.7. He has increased liver function testing that has worsened since his last admission to 6.9 and AST of 145. CBC suggestive platelet of 11,000. He denies any recent GI bleed but did have an episode of Coffee-ground emesis 2 weeks ago, denies melena. He has his last endoscopy done [address] Bowie and was told that it was normal. His last alcohol intake was 2 weeks ago. Patient continues to drink 2 of 12-16 ounces of hard liquor on and off. He said he had multiple relapses but quit officially in 2013. He is able to mobilize without any difficulty but can only walk to his car. His activities are restricted to driving his daughter to school and going to his appointments. He sees a pain specialist who has him on morphine 60 extended release 3 times a day which is not managing his abdominal pain. He feels Dilaudid cuts his pain. Abdominal pain is diffuse in nature, worse in the epigastric area radiating to his flank, chest and to his jaw. Patient also endorses muscle cramps and back pain from degenerative disc disease. 03/06: Patient states that he is on MS Contin 60 mg 3 times daily at home. This will be resumed but following this pharmacy checked that this has not been filled by his pharmacy. [facility]S was checked and patient has not received any prescriptions for morphine. Patient was started on Dilaudid 0.5 mg IV as needed. Dietitian met with the patient and it appeared he was having hallucinations and Dilaudid discontinued and [place] only ordered. 03/07: patient is alert and oriented 3 no major events reported by nursing staff patient would like to go home no further bleed reported. Patient is denying chest pain, shortness breath, nausea, vomiting, abdominal pain, dizziness or lightheadedness. 03/08: No major events reported by nursing staff patient is still at baseline mental status where he follows commands denying chest pain shortness breath nausea vomiting without pain dizziness lightheadedness or blurry vision. Patient's tolerating diet without difficulty EEG is still pending and patient has not been seen by ENT yet 03/09: Patient is gone for EEG ordered by Dr. Benton. He has been seen by pain management but patient not interested in injections for low back pain and will follow up with his regular pain specialist. Consult with Dr. Grant added for thrombocytopenia and possible need for orbital fracture. Consult with psychiatrist added to determine patient competency. Objective - Vital Signs Vital signs: Vital Signs Temp 98.5 F 03/09/17 07:00 Pulse 72 03/09/17 07:00 Resp 16 03/09/17 00:00 BP 119/66 03/09/17 07:00 Pulse Ox 97 03/09/17 07:00 Intake & Output 03/08/17 03/09/17 03/09/17 18:59 06:59 18:59 Intake Total 250 Balance 250 Weight 72.121 kg 70.45 kg Intake: Intake, IV Titration 250 Amount Sodium Chloride 0.9% 1, 250 000 ml @ 125 mls/hr IV . Q8H [facility] Rx#:[id number] Other: Voiding Method Toilet Urinal # Voids 2 - Exam General appearance: average body habitus, cooperative, severe distress - EENT Eyes: EOMI, PERRLA, no photophobia, poor dentition, no ptosis, scleral icterus ENT: hearing grossly normal, normal oropharynx Ears: bilateral: normal - Neck Neck: lymphadenopathy Carotids: bilateral: upstroke normal - Respiratory Respiratory: bilateral: CTA, negative: diminished, dullness, rales, rhonchi, wheezing - Cardiovascular Rhythm: regular Heart sounds: normal: S1, S2 Abnormal Heart Sounds: no systolic murmur, no diastolic murmur, no rub, no click - Gastrointestinal General gastrointestinal: decreased bowel sounds, distended, soft, tenderness Localized gastrointestinal: tender: diffuse, epigastric periumbilical (worse), guarding: diffuse - Integumentary Integumentary: no cyanotic, jaundiced, no rash, no ulcer - Neurologic Neurologic: CNII-XII intact - Musculoskeletal Musculoskeletal: generalized weakness - Psychiatric Psychiatric: A&O x's 3, appropriate affect - Labs CBC & Chem 7: 03/10/17 10:32 03/09/17 07:30 Labs: Abnormal Lab Results - Last 24 Hours (Table) 03/08/17 03/09/17 03/09/17 Range/Units 07:24 07:30 07:30 WBC 2.3 L (3.8-10.6) k/uL RBC 3.19 L (4.30-5.90) m/uL Hgb 10.5 L (13.0-17.5) gm/dL Hct 34.2 L (39.0-53.0) % MCV 107.0 H (80.0-100.0) fL MCHC 30.7 L (31.0-37.0) g/dL Plt Count 29 L* (150-450) k/uL Lymphocytes # 0.5 L (1.0-4.8) k/uL Chloride 112 H (98-107) mmol/L Carbon Dioxide 18 L (22-30) mmol/L BUN 8 L (9-20) mg/dL Calcium 7.5 L (8.4-10.2) mg/dL Total Bilirubin 7.6 H (0.2-1.3) mg/dL AST 128 H (17-59) U/L Ammonia 43 H (<30) umol/L Total Protein 5.8 L (6.3-8.2) g/dL Albumin 2.6 L (3.5-5.0) g/dL Assessment and Plan Plan: 1. Fall likely mechanical with syncope left orbital floor fracture. Seizure cannot be ruled out . Continue fall precautions and seizure precaution. CT head negative for any acute intracranial bleed but did show left forehead hematoma. Patient denies any headache. He does not recall any incidents. He did have documented electrolyte abnormality that could contribute to his presentation. ENT to follow as an outpatient. Neurology consult appreciated. 2. Hyperbilirubinemia Abdominal pain worse in epigastric area. with increased LFT. Sclerosing cholangitis on CT report. Continue Zofran for nausea and vomiting increased frequency to every 4 hours. Continue Protonix 40 mg every 12 hours. Consult with GI 3. Alcoholic liver cirrhosis with portal hypertension. Patient started on Inderal 10 mg 3 times daily. 4. History of heavy alcohol use with last relapse early January 2017. No recent alcohol intake. 5. Chronic thrombocytopenia secondary to cirrhosis of the liver. Platelet 11. No transfusionindicated unless patient to undergo any procedure 6. History of pancreatitis in the past currently stable 7. DVT prophylaxis - SCDs, no heparin due to low platelets 8. Coagulopathy secondary to cirrhosis of liver and is currently at 1.5 continue to monitor 9. GI prophylaxis patient will be on Protonix 40 mg twice a day 10. Acute on chronic pain follows with the pain clinic on morphine ER 60 every 8 hours when necessary as an outpatient. dilaudid 1 mg q3 hr 11. 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 Consult with Dr. Grant. 12. Hypomagnesia/ hypokalemia - replaced 13. Hallucinations, acute delirium possibly related to Dilaudid which will be discontinued. Patient may receive [place] for pain. Patient is not on MS Contin at home as he states. Discharge plan: home Impression and plan of care have been directed as dictated by the signing physician. Giovana Kathleen nurse practitioner acting as scribe for signing physician.
--- NOTE | 2017-03-10 13:05 | P.PN ---
Subjective Progress Note Date: 03/10/17 This is a 40-year-old male patient of Dr. Sarmad Linn. He has history of alcohol liver cirrhosis with portal hypertension and previous GI bleeding, hypertension and gastritis, pancreatitis. He is also known to Dr. Smart from previous EGDs in the past. This was last performed in 01/16/2017 with small distal esophageal varices. He states his last alcohol ingestion was 22 February 2017 . He was admitted for acute GI bleed in jan 2016 and mar 2016. He had another episode of coffee-ground emesis 2 weeks ago and was admitted in the ICU. He denies any alcohol use in the past week but did drink 2 week ago. He denies any nonsteroidal anti-inflammatory or aspirin use. He presented to [facility] emergency center as transfer from outside facility for evaluation of abnormal labs. According to the patient he was feeling unwell for the past 1 month with abdominal pain and muscle cramps. He stood up from the bed use the restroom and hit his head to the door of the bathroom. He does not recall the event that led to head injury. Mother states that patient had a seizure and lost his consciousness with the event lasted for 3-5 minutes. He was transferred here to [facility] for evaluation of abnormal labs, sclerosing cholangitis seen on the computed tomography scan, significant abdominal pain and head injury. Magnesium and potassium was repleted and according to the current labs patient's potassium is 3.5 and mag is 1.7. He has increased liver function testing that has worsened since his last admission to 6.9 and AST of 145. CBC suggestive platelet of 11,000. He denies any recent GI bleed but did have an episode of Coffee-ground emesis 2 weeks ago, denies melena. He has his last endoscopy done [address] Bowie and was told that it was normal. His last alcohol intake was 2 weeks ago. Patient continues to drink 2 of 12-16 ounces of hard liquor on and off. He said he had multiple relapses but quit officially in 2013. He is able to mobilize without any difficulty but can only walk to his car. His activities are restricted to driving his daughter to school and going to his appointments. He sees a pain specialist who has him on morphine 60 extended release 3 times a day which is not managing his abdominal pain. He feels Dilaudid cuts his pain. Abdominal pain is diffuse in nature, worse in the epigastric area radiating to his flank, chest and to his jaw. Patient also endorses muscle cramps and back pain from degenerative disc disease. 03/06: Patient states that he is on MS Contin 60 mg 3 times daily at home. This will be resumed but following this pharmacy checked that this has not been filled by his pharmacy. [facility] was checked and patient has not received any prescriptions for morphine. Patient was started on Dilaudid 0.5 mg IV as needed. Dietitian met with the patient and it appeared he was having hallucinations and Dilaudid discontinued and [place] only ordered. 03/07: patient is alert and oriented 3 no major events reported by nursing staff patient would like to go home no further bleed reported. Patient is denying chest pain, shortness breath, nausea, vomiting, abdominal pain, dizziness or lightheadedness. 03/08: No major events reported by nursing staff patient is still at baseline mental status where he follows commands denying chest pain shortness breath nausea vomiting without pain dizziness lightheadedness or blurry vision. Patient's tolerating diet without difficulty EEG is still pending and patient has not been seen by ENT yet 03/09: Patient is gone for EEG ordered by Dr. Benton. He has been seen by pain management but patient not interested in injections for low back pain and will follow up with his regular pain specialist. Consult with Dr. Grant added for thrombocytopenia and possible need for orbital fracture. Consult with psychiatrist added to determine patient competency. 03/10: EEG was negative. Consults with psychiatry and oncology are pending. IV fluids changed to saline lock and patient will be placed on a regular diet. Patient denies any abdominal pain. Ammonia level is 43. Platelets today are 36. Objective - Vital Signs Vital signs: Vital Signs Temp 98.5 F 03/10/17 07:00 Pulse 65 03/10/17 07:00 Resp 18 03/10/17 07:00 BP 123/80 03/10/17 07:00 Pulse Ox 97 03/10/17 07:00 Intake & Output 03/09/17 03/10/17 03/10/17 18:59 06:59 18:59 Intake Total 2205 Output Total 300 Balance 1905 Weight 72.27 kg 72.27 kg Intake: Intake, IV Titration 625 Amount Sodium Chloride 0.9% 1, 625 000 ml @ 125 mls/hr IV . Q8H [facility] Rx#:[id number] Oral 1580 Output: Urine 300 Other: Voiding Method Toilet Toilet Toilet Urinal # Voids 3 2 # Bowel Movements 1 1 1 - Exam General appearance: average body habitus, cooperative, severe distress - EENT Eyes: EOMI, PERRLA, no photophobia, poor dentition, no ptosis, scleral icterus ENT: hearing grossly normal, normal oropharynx Ears: bilateral: normal - Neck Neck: lymphadenopathy Carotids: bilateral: upstroke normal - Respiratory Respiratory: bilateral: CTA, negative: diminished, dullness, rales, rhonchi, wheezing - Cardiovascular Rhythm: regular Heart sounds: normal: S1, S2 Abnormal Heart Sounds: no systolic murmur, no diastolic murmur, no rub, no click - Gastrointestinal General gastrointestinal: decreased bowel sounds, distended, soft, tenderness Localized gastrointestinal: tender: diffuse, epigastric periumbilical (worse), guarding: diffuse - Integumentary Integumentary: no cyanotic, jaundiced, no rash, no ulcer - Neurologic Neurologic: CNII-XII intact - Musculoskeletal Musculoskeletal: generalized weakness - Psychiatric Psychiatric: A&O x's 3, appropriate affect - Labs CBC & Chem 7: 03/10/17 10:32 03/09/17 07:30 Labs: Abnormal Lab Results - Last 24 Hours (Table) 03/10/17 03/10/17 Range/Units 10:32 10:32 WBC 2.4 L (3.8-10.6) k/uL RBC 3.21 L (4.30-5.90) m/uL Hgb 10.8 L (13.0-17.5) gm/dL Hct 33.3 L (39.0-53.0) % MCV 103.7 H (80.0-100.0) fL Plt Count 36 L* (150-450) k/uL Ammonia 43 H (<30) umol/L Assessment and Plan Plan: 1. Fall likely mechanical with syncope left orbital floor fracture. Seizure cannot be ruled out . Continue fall precautions and seizure precaution. CT head negative for any acute intracranial bleed but did show left forehead hematoma. Patient denies any headache. He does not recall any incidents. He did have documented electrolyte abnormality that could contribute to his presentation. ENT to follow as an outpatient. Neurology consult appreciated. 2. Hyperbilirubinemia Abdominal pain worse in epigastric area. with increased LFT. Sclerosing cholangitis on CT report. Continue Zofran for nausea and vomiting increased frequency to every 4 hours. Continue Protonix 40 mg every 12 hours. Consult with GI 3. Alcoholic liver cirrhosis with portal hypertension. Patient started on Inderal 10 mg 3 times daily. 4. History of heavy alcohol use with last relapse early January 2017. No recent alcohol intake. 5. Chronic thrombocytopenia secondary to cirrhosis of the liver. Platelet 11. No transfusion indicated unless patient to undergo any procedure 6. History of pancreatitis in the past currently stable 7. DVT prophylaxis - SCDs, no heparin due to low platelets 8. Coagulopathy secondary to cirrhosis of liver and is currently at 1.5 continue to monitor 9. GI prophylaxis patient will be on Protonix 40 mg twice a day 10. Acute on chronic pain follows with the pain clinic on morphine ER 60 every 8 hours when necessary as an outpatient. dilaudid 1 mg q3 hr 11. 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 Consult with Dr. Grant. 12. Hypomagnesia/ hypokalemia - replaced 13. Hallucinations, acute delirium possibly related to Dilaudid which will be discontinued. Patient may receive [place] for pain. Patient is not on MS Contin at home as he states. Psychiatry consult regarding competency as requested by patient's mother. Discharge plan: home Impression and plan of care have been directed as dictated by the signing physician. Giovana Kathleen nurse practitioner acting as scribe for signing physician.
--- NOTE | 2017-03-10 18:17 | CONS ---
CONSULTATION DATE OF SERVICE: Date of service 03/10/2017. PURPOSE OF CONSULTATION: Evaluate for alcohol dependence and depression. HISTORY OF PRESENT ILLNESS: The patient is a 41-year-old male. He has a history of alcoholic hepatic cirrhosis with portal hypertension and a prior GI bleed. He has a history of hypertension, gastritis and pancreatitis. He reportedly has been using alcohol intermittently for a number of months. He says he might drink about once a week. He indicated on admission that his last drink was 2 weeks ago prior to admission. He reports drinking 24-32 ounces of hard liquor when he does drink. He apparently has had significant past alcohol use, though said he made effort to control his drinking going back to 2013. He apparently had an extended period of sobriety, though a lot of the details are unclear and then in this year he started drinking on a limited basis, which he said he has continued up until this admission. He also says that he has not escalated in his drinking during this period where he has gotten back into drinking about once a week. His main complaint to me is low back pain. He says that is his main concern currently, that he is just looking for any interventions that can help alleviate his pain. He described multiple orthopedic issues with his lower back that have been a long-term problems for him. He said that he had received some opioid pain medications, though has not been taking any opioids over an extended period of time. He was vague about whether there has been any past intervention for mental health issues. He suggested that he had not previously been on any antidepressants. He said he did have concern about an antidepressant because his father had been prescribed Prozac and he believes that it caused his father to have a problem. He does say that he had done better with his back when he was consistently working on some physical therapy exercises that he was doing on a consistent basis. He lives with his mother. The nurse had suggested that the mother has expressed quite a bit of concern about his cognitive function. There was some question raised as to whether he might need guardianship, though I have no details on that. MENTAL STATUS: Patient was lying in bed, half sitting up. He gave fair eye contact. He was a little restless. He tended to ramble some. His thoughts at times were circular. He seemed to follow the conversation, though mostly he was focused on asking what could be done to immediately alleviate his pain today. His affect was somewhat anxious, his mood reserved. ASSESSMENT: This 41-year-old male is diagnosed with alcohol dependence, continuous, and likely a diagnosis of major depression. I had an extensive discussion with the patient regarding antidepressant therapy and its use in chronic pain management. We talked about a range of interventions to help with the chronic pain. We discussed the differences between chronic and acute pain. The patient said that he was willing to consider starting an antidepressant, though at this point he did not want to start one, but rather talk to his other doctors for further information and second opinion before he would go in that direction. I did discuss with the patient that it would be appropriate for his primary care physician to consider starting an antidepressant as well. I discussed that it would be appropriate for him to start on Prozac 20 mg a day or an equivalent alternative antidepressant. I discussed the issues with antidepressants in regard to the idea that it takes a while for them to work, that he may need to be titrated up to higher doses for effectiveness and that there is at least a modest failure rate with any antidepressant and that it may take trials of more than one antidepressant to find an effective medication for him. At this point, I will not make any changes in his treatment, though I will follow up. KEYLA / JESSYN: [id number] /
--- NOTE | 2017-03-10 19:31 | P.PN ---
Subjective Progress Note Date: 03/10/17 This patient is a 41-year-old male who is being evaluated for recent syncopal episode versus seizure. Patient sustained a fall at home and was noted by his mother as having possible seizure activity. He was admitted to hospital and is also being treated for alcohol leg liver cirrhosis and portal hypertension. His CAT scan of the brain did reveal a blowout fracture involving the left orbital region. We have recommended an ENT consultation for further evaluation. According to Dr. Mchugh ENT was contacted today and they reviewed his CAT scan films. He is recommended to follow-up as outpatient and he will not be seen by ENT during this admission. This was documented by the nursing staff today as well as the plan by Dr. Mcmillan from ENT. Due to his seizure- like activity we have ordered a routine EEG which was not completed over the weekend. He did have the EEG done today and we did review this study. EEG is within normal limits for his age with no evidence of any epileptiform discharge. We discussed with the nursing staff and apparently he is to be seen by psychiatry for further evaluation of his competency. Family apparently wants him to go into a drug rehabilitation program for his alcohol is him. Patient is being followed up by gastroenterology as well for his severe alcoholic liver cirrhosis. We will await their further recommendations. We will continue to monitor his neurological status closely. His pain level seems to be doing much better today. He was seen by the pain specialist but does not require any further intervention at this time. His overall prognosis at this time remains guarded. Patient is aware he should not be driving for appeared 6 months following any seizure or syncopal episode. We have once again reiterated this today to the patient in detail. His recent fall was likely mechanical in nature. As noted we reviewed the EEG once again in detail with him. Patient was seen by psychiatry today for further evaluation of depression and alcohol dependence. Psychiatry is recommending possible antidepressant use. We will continue to monitor his progress closely during this admission. We'll await further recommendations from his admitting physicians. Objective - Vital Signs Vital signs: Vital Signs Temp 98.5 F 03/10/17 14:51 Pulse 76 03/10/17 14:51 Resp 18 03/10/17 14:51 BP 113/66 03/10/17 14:51 Pulse Ox 97 03/10/17 14:51 Intake & Output 03/09/17 03/10/17 03/10/17 18:59 06:59 18:59 Intake Total 2205 Output Total 300 Balance 1905 Weight 72.27 kg 72.27 kg Intake: Intake, IV Titration 625 Amount Sodium Chloride 0.9% 1, 625 000 ml @ 125 mls/hr IV . Q8H [facility] Rx#:[id number] Oral 1580 Output: Urine 300 Other: Voiding Method Toilet Toilet Toilet Urinal # Voids 3 2 # Bowel Movements 1 1 1 - Exam Physical examination: PHYSICAL EXAMINATION: Patient is resting comfortably in bed. VITAL SIGNS: Blood pressure is [114/67]. Heart rate is [76]. Respiration is [18] . Temperature is [98.5]. HEENT: Head is atraumatic, neck is supple, there were no carotid bruits. CHEST: Lungs are clear to auscultation and percussion. CARDIAC: S1, S2 normal rate and rhythm. There is no murmur. ABDOMEN: Soft and nontender. Bowel sounds are present. EXTREMITIES: There is no pedal edema. Peripheral pulses are present. Neurological examination: Patient has a nonfocal neurological examination which remains unchanged from yesterday. - Labs CBC & Chem 7: 03/10/17 10:32 03/09/17 07:30 Labs: Abnormal Lab Results - Last 24 Hours (Table) 03/10/17 03/10/17 Range/Units 10:32 10:32 WBC 2.4 L (3.8-10.6) k/uL RBC 3.21 L (4.30-5.90) m/uL Hgb 10.8 L (13.0-17.5) gm/dL Hct 33.3 L (39.0-53.0) % MCV 103.7 H (80.0-100.0) fL Plt Count 36 L* (150-450) k/uL Ammonia 43 H (<30) umol/L Assessment and Plan (1) Syncope and collapse Current Visit: Yes Status: Acute Code(s): R55 - SYNCOPE AND COLLAPSE SNOMED Code(s): 095087320 (2) Encephalopathy Current Visit: Yes Status: Acute Code(s): G93.40 - ENCEPHALOPATHY, UNSPECIFIED SNOMED Code(s): 14633641 (3) Alcoholic cirrhosis of liver Current Visit: Yes Status: Acute Code(s): K70.30 - ALCOHOLIC CIRRHOSIS OF LIVER WITHOUT ASCITES SNOMED Code(s): 013209544 (4) Seizure Current Visit: Yes Status: Acute Code(s): R56.9 - UNSPECIFIED CONVULSIONS SNOMED Code(s): 47033883 (5) Chronic pain Current Visit: No Status: Acute Code(s): G89.29 - OTHER CHRONIC PAIN SNOMED Code(s): 94937666 Plan: This patient is a 41-year-old male who is being evaluated for recent syncopal episode and/or seizure. He is undergone routine EEG which was reviewed and is normal for his age with no evidence of any epileptiform discharges. He was seen by psychiatry today for alcohol dependence and depression. They're recommending he consider starting on a antidepressant medications such as Prozac. We once again reviewed his EEG results with him in detail. He is being considered for possible discharge home soon. We will continue to monitor his progress closely during this admission. His overall prognosis remains guarded.
--- NOTE | 2017-03-10 23:04 | P.CONS ---
History of Present Illness - Reason for Consult Consult date: 03/10/17 Pancytopenia - History of Present Illness The patient is a 41-year-old white male with multiple medical problems, well known to us from previous consultations. The patient has been seen for pancytopenia, with thrombocytopenia most prominent. He has a long-standing history of alcohol abuse, as well as alcoholic cirrhosis and portal hypertension. This pancytopenia is due to alcohol related marrow damage, chronic liver disease, as well as splenic sequestration. He has had drops in blood counts compared to baseline, related to additional acute insults and/or repeat alcohol consumption. The patient quit alcohol officially about 2-1/2 years ago, but has continued to drink intermittently. His last drink was just before Joanna according to him. The patient felt and heard the left side of his forehead. It appears that he may subsequently have blacked out for a short period of time. According to his mother there was concern for seizure activity. He was therefore brought into the hospital, where he was noted to be dehydrated with multiple electrolyte abnormalities. Pancytopenia was again noted. Platelet count was 11, and has improved into the 20,000 range. White count has been fairly stable between to and 3000, with ANC greater than 1000. Hemoglobin has been overall stable in the 10-11 range. He denied any overt bleeding. He states that his last endoscopy was a few weeks ago (in 01/16 in this EMR). Consult was therefore placed for further evaluation and recommendations Review of Systems Constitutional: Reports chronic pain, Reports poor appetite, Reports weakness Eyes: denies blurred vision, denies pain Ears: deny: decreased hearing, ear discharge, earache, tinnitus Ears, nose, mouth and throat: Denies headache, Denies sore throat Cardiovascular: Denies chest pain, Denies shortness of breath Respiratory: Denies cough Gastrointestinal: Reports as per HPI, Reports abdominal pain Genitourinary: Reports as per HPI (No specific complaint) Musculoskeletal: Reports muscle weakness Integumentary: Denies pruritus, Denies rash Neurological: Reports as per HPI, Reports convulsions, Reports head injury, Reports syncope Psychiatric: Reports as per HPI (History of alcohol abuse) Endocrine: Denies fatigue, Denies weight change Hematologic/Lymphatic: Reports as per HPI Past Medical History Past Medical History: GERD/Reflux, GI Bleed, Hypertension, Liver Disease, Thyroid Disorder Additional Past Medical History / Comment(s): Liver cirrhosis, portal htn, ETOH abuse, esophageal varicies, upper GI bleed, chronic thrombocytopenia, coagulopathy, pancytopenia, ascities, spinal stenosis: back/leg and feet pain, DDD, chronic back pain, neuropathy bilateral legs/feet, falls, bronchitisi, past L rib fractures after fall off ladder, 2009 [place], History of Any Multi-Drug Resistant Organisms: None Reported Past Surgical History: Appendectomy, Joint Replacement Additional Past Surgical History / Comment(s): EGDs with last one done 01/16/17 , paracentesis, back injections, R thumb reattachment, circumcism. Past Anesthesia/Blood Transfusion Reactions: No Reported Reaction Additional Past Anesthesia/Blood Transfusion Reaction / Comm: Pt has received blood without reaction. Smoking Status: Current every day smoker - Past Family History Father Family Medical History: No Reported History Additional Family Medical History / Comment(s): Pt does not know his father's medical hx. Mother Family Medical History: No Reported History Additional Family Medical History / Comment(s): Mother is healthy. Medications and Allergies Home Medications Medication Instructions Recorded Confirmed Type Vitamin B Complex 1 cap PO DAILY 03/04/16 03/05/17 History Levothyroxine Sodium [Synthroid] 25 mcg PO DAILY 05/07/16 03/05/17 History Ascorbic Acid [Vitamin C] 500 mg PO DAILY 01/02/17 03/05/17 History Pantoprazole Sodium [Protonix] 20 mg PO BID 01/02/17 03/05/17 History Ferrous Sulfate [Feosol] 325 mg PO DAILY 01/15/17 03/05/17 History Sucralfate [Carafate] 1 gm PO QID 01/15/17 03/05/17 History Magnesium 200 mg PO DAILY 03/05/17 03/05/17 History Multivitamin [Men's Multi-Vitamin] 1 tab PO DAILY 03/05/17 03/05/17 History Potassium Chloride [Klor-Con 20] 20 meq PO BID 03/05/17 03/05/17 History Allergies Allergy/AdvReac Type Severity Reaction Status Date / Time No Known Allergies Allergy Verified 03/05/17 12:26 Physical Exam Vitals: Vital Signs Temp Pulse Resp BP Pulse Ox 03/10/17 07:00 98.5 F 65 18 123/80 97 03/09/17 23:22 64 01/08/18 22:32 99.3 F 64 16 109/74 98 03/09/17 21:31 98.3 F 03/09/17 16:00 73 16 03/09/17 15:00 97.9 F 73 16 121/77 99 Intake and Output 03/09/17 03/10/17 03/10/17 22:59 06:59 14:59 Intake Total 500 Balance 500 Intake: Oral 500 Other: Voiding Method Toilet Toilet Urinal # Voids 2 # Bowel Movements 1 Weight 72.27 kg - Constitutional General appearance: no acute distress - EENT Eyes: EOMI, PERRLA ENT: hearing grossly normal, normal oropharynx - Neck Neck: no lymphadenopathy - Respiratory Respiratory: bilateral: CTA - Cardiovascular Rhythm: regular Heart sounds: normal: S1, S2 - Gastrointestinal General gastrointestinal: normal bowel sounds, soft - Integumentary Scabbed over abrasion left forehead - Neurologic Neurologic: CNII-XII intact - Musculoskeletal Musculoskeletal: generalized weakness, strength equal bilaterally - Psychiatric Psychiatric: A&O x's 3 Results CBC & Chem 7: 03/10/17 10:32 03/09/17 07:30 Comments: EEG report reviewed CT Scan - head: report reviewed Assessment and Plan (1) Pancytopenia Narrative/Plan: this is a chronic problem for this patient, and is multifactorial in etiology. He has chronic underlying EtOH-related bone marrow damage. This is exacerbated by him continuing to drink off and on. In addition he has chronic liver disease causing depressed platelet production in addition. He also has portal hypertension causing splenic sequestration. In this situation, counts tend to drop further from baseline with any additional stress. During this admission a slight drop from baseline is noted in the hemoglobin. Platelets did drop somewhat more, but have recovered partially. Currently all blood counts are in a safe range. there is no evidence of active bleeding. No acute intervention is required from the hematology standpoint. I will repeat labs to check for any deficiency state that may have developed in the interim. continue to monitor counts. he was again advised to completely quit drinking. Current Visit: Yes Status: Acute Code(s): D61.818 - OTHER PANCYTOPENIA SNOMED Code(s): 046172738 Plan: Defer to the admitting service and other consultants for management of his other medical problems. As long as his counts are stable to improved, from our standpoint patient can be discharged home verified to be appropriate by the admitting service.
[2017-03-11] MEDS: SODIUM CHLORIDE 0.9% 1,000 ML IV SCH ×2 (00:01→08:44)
[2017-03-11] MEDS: LORazepam 1 MG TAB PO PRN (01:52)
[2017-03-11] MEDS: MORPHINE SULFATE 5 MG/ML SYRINGE IVP PRN (06:01)
[2017-03-11] MEDS: LEVOTHYROXINE 25 MCG TAB PO SCH (07:02)
[2017-03-11] MEDS: HYDROcodone/APAP 7.5-325MG 1 EACH TAB PO PRN (07:03)
[2017-03-11] MEDS ORDERED: MORPHINE SULFATE 2 MG/ML SYRINGE IVP PRN (08:05)
[2017-03-11 08:12] VITALS: BP 133/74; PULSE 57; RESP 18; TEMP 98.6
[2017-03-11 08:23] LABS: HCT 36.2 % (39.0-53.0); HGB 11.5 gm/dL (13.0-17.5); MCHC 31.9 g/dL (31.0-37.0); MCV 103.4 fL (80.0-100.0); Macrocytosis Slight; Mean Platelet Volume 10.6; RDW 15.3 % (11.5-15.5)
[2017-03-11 08:29] LABS: Platelet Count 50 k/uL (150-450)
[2017-03-11] MEDS: NICOTINE 21MG/24HR PATCH TRANSDERM SCH (08:42)
[2017-03-11] MEDS: PANTOPRAZOLE 40 MG TABLET PO SCH (08:42)
[2017-03-11] MEDS: SUCRALFATE 1 GM TAB PO SCH (08:43)
[2017-03-11] MEDS: B COMPLEX-VIT C-VIT E-ZINC 1 EACH TAB PO SCH (08:44)
[2017-03-11] MEDS: CALCIUM CARB-VIT D 500MG-200UN 1 EACH TAB PO SCH (08:44)
[2017-03-11] MEDS: MAGNESIUM OXIDE 400 MG TAB PO SCH (08:45)
[2017-03-11] MEDS: FERROUS SULFATE 325 MG TAB PO SCH (08:45)
[2017-03-11] MEDS: PROPRANOLOL 10 MG TAB PO SCH (08:45)
[2017-03-11] MEDS: POTASSIUM CHLORIDE ER 20 MEQ TAB.ER PO SCH (08:45)
[2017-03-11] MEDS: ASCORBIC ACID 500 MG TAB PO SCH (08:45)
[2017-03-11 11:22] LABS: Iron Saturation 28.23 (15.00-50.00)
--- NOTE | 2017-03-11 13:32 | P.DS ---
Providers Date of admission: 03/05/17 13:08 Expected date of discharge: 03/11/17 Attending physician: Yasmin Herrera MD Consults: 03/06/17 16:56 Consult Physician Routine Consulting Provider: Louie Mcintyre Consult Reason/Comments: chronic pain Do you want consulting provider notified?: Yes 03/06/17 16:57 Consult Physician Routine Consulting Provider: Rhonda Benton Consult Reason/Comments: confusion, AMS Do you want consulting provider notified?: Yes 03/07/17 08:00 Consult Physician Urgent Consulting Provider: Mark Mcmillan Consult Reason/Comments: Left orbital blowout fracture Do you want consulting provider notified?: Yes 03/09/17 14:03 Consult Physician Routine Consulting Provider: Calderon Grant Consult Reason/Comments: low PLT r/t cirrhosis, may need orbital fx sx Do you want consulting provider notified?: Yes 03/09/17 23:33 Consult Physician Routine Consulting Provider: Bishnu Everett Consult Reason/Comments: declare competency of patient Do you want consulting provider notified?: Yes, Notify in am [facility] Course: This is a 40-year-old male patient of Dr. Sarmad Linn. He has history of alcohol liver cirrhosis with portal hypertension and previous GI bleeding, hypertension and gastritis, pancreatitis. He is also known to Dr. Smart from previous EGDs in the past. This was last performed in 01/16/2017 with small distal esophageal varices. He states his last alcohol ingestion was 22 February 2017 . He was admitted for acute GI bleed in jan 2016 and mar 2016. He had another episode of coffee-ground emesis 2 weeks ago and was admitted in the ICU. He denies any alcohol use in the past week but did drink 2 week ago. He denies any nonsteroidal anti-inflammatory or aspirin use. He presented to [facility] emergency center as transfer from outside facility for evaluation of abnormal labs. According to the patient he was feeling unwell for the past 1 month with abdominal pain and muscle cramps. He stood up from the bed use the restroom and hit his head to the door of the bathroom. He does not recall the event that led to head injury. Mother states that patient had a seizure and lost his consciousness with the event lasted for 3-5 minutes. He was transferred here to [facility] for evaluation of abnormal labs, sclerosing cholangitis seen on the computed tomography scan, significant abdominal pain and head injury. Magnesium and potassium was repleted and according to the current labs patient's potassium is 3.5 and mag is 1.7. He has increased liver function testing that has worsened since his last admission to 6.9 and AST of 145. CBC suggestive platelet of 11,000. He denies any recent GI bleed but did have an episode of Coffee-ground emesis 2 weeks ago, denies melena. He has his last endoscopy done [address] Bowie and was told that it was normal. His last alcohol intake was 2 weeks ago. Patient continues to drink 2 of 12-16 ounces of hard liquor on and off. He said he had multiple relapses but quit officially in 2013. He is able to mobilize without any difficulty but can only walk to his car. His activities are restricted to driving his daughter to school and going to his appointments. He sees a pain specialist who has him on morphine 60 extended release 3 times a day which is not managing his abdominal pain. He feels Dilaudid cuts his pain. Abdominal pain is diffuse in nature, worse in the epigastric area radiating to his flank, chest and to his jaw. Patient also endorses muscle cramps and back pain from degenerative disc disease. 03/06: Patient states that he is on MS Contin 60 mg 3 times daily at home. This will be resumed but following this pharmacy checked that this has not been filled by his pharmacy. MAPS was checked and patient has not received any prescriptions for morphine. Patient was started on Dilaudid 0.5 mg IV as needed. Dietitian met with the patient and it appeared he was having hallucinations and Dilaudid discontinued and Webber only ordered. 03/07: patient is alert and oriented 3 no major events reported by nursing staff patient would like to go home no further bleed reported. Patient is denying chest pain, shortness breath, nausea, vomiting, abdominal pain, dizziness or lightheadedness. 03/08: No major events reported by nursing staff patient is still at baseline mental status where he follows commands denying chest pain shortness breath nausea vomiting without pain dizziness lightheadedness or blurry vision. Patient's tolerating diet without difficulty EEG is still pending and patient has not been seen by ENT yet 03/09: Patient is gone for EEG ordered by Dr. Benton. He has been seen by pain management but patient not interested in injections for low back pain and will follow up with his regular pain specialist. Consult with Dr. Grant added for thrombocytopenia and possible need for orbital fracture. Consult with psychiatrist added to determine patient competency. 03/10: EEG was negative. Consults with psychiatry and oncology are pending. IV fluids changed to saline lock and patient will be placed on a regular diet. Patient denies any abdominal pain. Ammonia level is 43. Platelets today are 36. 03/11: Patient has been seen by psychiatry with recommendations for Prozac 20 mg daily or equivalent. Social work will provide list of rehab. Dr. Grant has evaluated thrombocytopenia secondary to alcohol-related bone marrow damage with recommendations to stop alcohol intake. She is tolerating a regular diet will be discharged home today in stable condition. Discharge diagnoses: 1. Fall likely mechanical with syncope left orbital floor fracture. 2. Hyperbilirubinemia 3. Alcoholic liver cirrhosis with portal hypertension. 4. History of heavy alcohol use with last relapse early January 2017. 5. Chronic thrombocytopenia secondary to cirrhosis of the liver. 6. History of pancreatitis in the past currently stable 7. 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 8. Coagulopathy secondary to cirrhosis of liver 9. Acute on chronic pain follows with the pain clinic 10. Hypomagnesia/ hypokalemia - replaced 11. Hallucinations, acute delirium possibly related to Dilaudid Discharge plan: home Impression and plan of care have been directed as dictated by the signing physician. Giovana Kathleen nurse practitioner acting as scribe for signing physician. Patient Condition at Discharge: Good Plan - Discharge Summary Discharge Rx Participant: No New Discharge Prescriptions: New Calcium Carb-Vit D 500Mg-200Un [Oscal 500+D] 1 each PO TID-W/MEALS tab FLUoxetine HCL [PROzac] 20 mg PO DAILY #30 cap Nicotine 21Mg/24Hr Patch [Habitrol] 1 patch TRANSDERM DAILY #30 patch Propranolol [Inderal] 10 mg PO TID #90 tab Thiamine [Vitamin B-1] 100 mg PO BID@1200,1700 tab Continue Vitamin B Complex 1 cap PO DAILY Levothyroxine Sodium [Synthroid] 25 mcg PO DAILY Ascorbic Acid [Vitamin C] 500 mg PO DAILY Pantoprazole Sodium [Protonix] 20 mg PO BID Ferrous Sulfate [Iron (65 MG Elemental)] 325 mg PO DAILY Sucralfate [Carafate] 1 gm PO QID Potassium Chloride [Klor-Con 20] 20 meq PO BID Magnesium 200 mg PO DAILY Multivitamin [Men's Multi-Vitamin] 1 tab PO DAILY Discharge Medication List Vitamin B Complex 1 cap PO DAILY 03/04/16 [History] Levothyroxine Sodium [Synthroid] 25 mcg PO DAILY 05/07/16 [History] Ascorbic Acid [Vitamin C] 500 mg PO DAILY 01/02/17 [History] Pantoprazole Sodium [Protonix] 20 mg PO BID 01/02/17 [History] Ferrous Sulfate [Iron (65 MG Elemental)] 325 mg PO DAILY 01/15/17 [History] Sucralfate [Carafate] 1 gm PO QID 01/15/17 [History] Magnesium 200 mg PO DAILY 03/05/17 [History] Multivitamin [Men's Multi-Vitamin] 1 tab PO DAILY 03/05/17 [History] Potassium Chloride [Klor-Con 20] 20 meq PO BID 03/05/17 [History] Calcium Carb-Vit D 500Mg-200Un [Oscal 500+D] 1 each PO TID-W/MEALS tab [Rx] FLUoxetine HCL [PROzac] 20 mg PO DAILY #30 cap 03/11/17 [Rx] Nicotine 21Mg/24Hr Patch [Habitrol] 1 patch TRANSDERM DAILY #30 patch 03/11/17 [ Rx] Propranolol [Inderal] 10 mg PO TID #90 tab 03/11/17 [Rx] Thiamine [Vitamin B-1] 100 mg PO BID@1200,1700 tab 03/11/17 [Rx] Follow up Appointment(s)/Referral(s): Mark Mcmillan MD [STAFF PHYSICIAN] - 03/17/17 9:30 am Pablo Linn MD [Primary Care Provider] - 03/19/17 1:00 pm Patient Instructions/Handouts: Propranolol (By mouth), Fluoxetine (By mouth), Nicotine (Absorbed through the skin), How to Stop Smoking (DC) Activity/Diet/Wound Care/Special Instructions: Diet as tolerated Activity as tolerated Discharge Disposition: HOME SELF-CARE
[2017-03-13 01:48] LABS: Methylmalonic Acid 0.1 umol/L (<0.40)
== END 2017-03-11 12:35 | disposition home or self-care (01) | DRG 433 ==
LOC: EC 12:09 → 6SEL 13:08 → 5MS5E 03-06 16:35
PROVIDERS: ADMIT Internal Medicine; ATTEND Internal Medicine
DX: K70.30 Alcoholic cirrhosis of liver without ascites (principal); K83.0 Cholangitis; K70.10 Alcoholic hepatitis without ascites; D61.818 Other pancytopenia; D68.4 Acquired coagulation factor deficiency; D69.59 Other secondary thrombocytopenia; E83.51 Hypocalcemia; E83.42 Hypomagnesemia; K76.6 Portal hypertension; F10.239 Alcohol dependence with withdrawal, unspecified; K86.1 Other chronic pancreatitis; S02.32XA Fracture of orbital floor, left side, initial encounter for closed fracture; F11.921 Opioid use, unspecified with intoxication delirium; E87.2 Acidosis; K70.40 Alcoholic hepatic failure without coma; E87.6 Hypokalemia; E86.0 Dehydration; F17.200 Nicotine dependence, unspecified, uncomplicated; F32.9 Major depressive disorder, single episode, unspecified; G89.29 Other chronic pain; I10 Essential (primary) hypertension; K21.9 Gastro-esophageal reflux disease without esophagitis; S00.03XA Contusion of scalp, initial encounter; W19.XXXA Unspecified fall, initial encounter; M54.5 Low back pain; G62.9 Polyneuropathy, unspecified; Z79.899 Other long term (current) drug therapy; Y92.009 Unspecified place in unspecified non-institutional (private) residence as the place of occurrence of the external cause; T40.2X5A Adverse effect of other opioids, initial encounter
CPT/HCPCS: 70450; 80053; 82140; 82607; 82728; 82747; 83540; 83550; 83605; 83690; 83735; 83921; 85025; 85027; 95819; 96360; 96361; 96374; 96375; 99285

== ENCOUNTER 2018-01-05 14:38 | Inpatient (IN) | payer MEDICARE ==
[2018-01-05] MEDS ORDERED: SODIUM CHLORIDE 0.9% 1,000 ML IV ONE (15:39)
[2018-01-05] MEDS ORDERED: MORPHINE SULFATE 2 MG/ML SYRINGE IVP STA (15:47)
--- NOTE | 2018-01-05 16:05 | ED ---
General Adult HPI <Girish White - Last Filed: 01/05/18 17:35> - General Source: patient Mode of arrival: ambulatory Limitations: physical limitation <ChagoAlma Delia santos - Last Filed: 01/05/18 18:10> - General Chief complaint: Skin/Abscess/Foreign Body Stated complaint: Cyst on hip Time Seen by Provider: 01/05/18 14:46 - History of Present Illness Initial comments: 42-year-old male past medical history of liver disease from alcoholism, chronic pancreatitis, hypertension, chronic low back pain, anemia, previous GI bleed presenting today for chief complaint of right anterior knee abscess. Patient states that last Thursday he felt a big deep bump on his right anterior thigh. He states he is not sure if he was bit by a spider or bumped it on the corner of a table. However he noticed above increasing in size with a black center in the middle the days following. Patient stated that Thursday following the initial onset and began draining pus and blood. Patient does have a history of previous abscess but denies history of MRSA infection. Patient denies any fever , chills, night sweats. Patient does admit to increased tenderness at the site of lesion. Patient does admit to surrounding erythema of the area that has been spreading since beginning of onset. Patient denies any involvement of the groin, genital region. Patient denies any other areas abscess. Remainder of ROS negative, patient denies any recent shortness of breath, chest pain, back pain, abdominal pain, nausea or vomiting, numbness or tingling, dysuria or hematuria, constipation or diarrhea, headaches or visual changes, or any other complaints. Upon arrival patient heart rate elevated at 114, repeat 103. Remainder of vital signs within except limits. (Alma Delia Ghotra) - Related Data Home Medications Medication Instructions Recorded Confirmed Vitamin B Complex 1 cap PO DAILY 03/04/16 01/05/18 Levothyroxine Sodium [Synthroid] 25 mcg PO DAILY 05/07/16 01/05/18 Ascorbic Acid [Vitamin C] 500 mg PO DAILY 01/02/17 01/05/18 Pantoprazole Sodium [Protonix] 20 mg PO BID 01/02/17 01/05/18 Ferrous Sulfate [Iron (65 MG 325 mg PO DAILY 01/15/17 01/05/18 Elemental)] Sucralfate [Carafate] 1 gm PO QID 01/15/17 01/05/18 Magnesium 200 mg PO DAILY 03/05/17 01/05/18 Multivitamin [Men's Multi-Vitamin] 1 tab PO DAILY 03/05/17 01/05/18 Previous Rx's Medication Instructions Recorded Calcium Carb-Vit D 500Mg-200Un 1 each PO TID-W/MEALS tab 03/11/17 [Oscal 500+D] FLUoxetine HCL [PROzac] 20 mg PO DAILY #30 cap 03/11/17 Nicotine 21Mg/24Hr Patch [Habitrol] 1 patch TRANSDERM DAILY #30 patch 03/11/17 Thiamine [Vitamin B-1] 100 mg PO BID@1200,1700 tab 03/11/17 Allergies Allergy/AdvReac Type Severity Reaction Status Date / Time No Known Allergies Allergy Verified 01/05/18 15:47 Review of Systems ROS Other: All systems not noted in ROS Statement are negative. <Girish White - Last Filed: 01/05/18 17:35> ROS Other: All systems not noted in ROS Statement are negative. Constitutional: Denies: fever, chills, night sweats Eyes: Denies: eye pain, eye discharge, vision change ENT: Denies: ear pain, throat pain Respiratory: Denies: cough, dyspnea, wheezes, hemoptysis, stridor Cardiovascular: Denies: chest pain, palpitations, dyspnea on exertion Endocrine: Denies: fatigue Gastrointestinal: Denies: abdominal pain, nausea, vomiting, diarrhea, constipation, hematemesis Genitourinary: Denies: urgency, dysuria, frequency Musculoskeletal: Denies: back pain Skin: Reports: as per HPI, lesions (right anterior thigh) Neurological: Denies: headache, weakness, numbness, paresthesias, confusion, abnormal gait <Alma Delia Ghotra - Last Filed: 01/05/18 18:10> ROS Statement: Those systems with pertinent positive or pertinent negative responses have been documented in the HPI. Past Medical History Past Medical History: GERD/Reflux, GI Bleed, Hypertension, Liver Disease, Thyroid Disorder Additional Past Medical History / Comment(s): Liver cirrhosis, portal htn, ETOH abuse, esophageal varicies, upper GI bleed, chronic thrombocytopenia, coagulopathy, pancytopenia, ascities, spinal stenosis: back/leg and feet pain, DDD, chronic back pain, neuropathy bilateral legs/feet, falls, bronchitisi, past L rib fractures after fall off ladder, 2009 Guillian Worthing, History of Any Multi-Drug Resistant Organisms: None Reported Past Surgical History: Appendectomy, Joint Replacement Additional Past Surgical History / Comment(s): EGDs paracentesis, back injections, R thumb reattachment, circumcism. Past Anesthesia/Blood Transfusion Reactions: No Reported Reaction Additional Past Anesthesia/Blood Transfusion Reaction / Comment(s): Pt has received blood without reaction. Past Psychological History: Depression Smoking Status: Current every day smoker Past Alcohol Use History: None Reported Past Drug Use History: Marijuana - Past Family History Father Family Medical History: No Reported History Additional Family Medical History / Comment(s): Pt does not know his father's medical hx. Mother Family Medical History: No Reported History Additional Family Medical History / Comment(s): Mother is healthy. <Alma Delia Ghotra - Last Filed: 01/05/18 18:10> General Exam <Girish White - Last Filed: 01/05/18 17:35> Limitations: physical limitation <Alma Delia Ghotra - Last Filed: 01/05/18 18:10> - General Exam Comments Initial Comments: General: The patient is awake and alert, in no distress, and does not appear acutely ill. Eye: Pupils are equal, round and reactive to light, extra-ocular movements are intact. No nystagmus. There is normal conjunctiva bilaterally. No signs of icterus. Ears, nose, mouth and throat: There are moist mucous membranes and no oral lesions. Neck: The neck is supple, there is no tenderness or JVD. Cardiovascular: There is a regular rate and rhythm. No murmur, rub or gallop is appreciated. Respiratory: Lungs are clear to auscultation, respirations are non-labored, breath sounds are equal. No wheezes, stridor, rales, or rhonchi. Gastrointestinal: Soft, non-distended, non-tender abdomen without masses or organomegaly noted. There is no rebound or guarding present. No CVA tenderness. Bowel sounds are unremarkable. Musculoskeletal: Normal ROM, no tenderness. Strength 5/5. Sensation intact. DP and radial pulses equal bilaterally 2+. Neurological: A&O x 3. CN II-XII intact, There are no obvious motor or sensory deficits. Coordination appears grossly intact. Speech is normal. Skin: Skin is warm and dry and no rashes. Abscess like lesion 3cm in diameters of the right anterior thigh, There is surrounding erythema/edema and some surrounding necrotic tissue, no involvement of the groin/perianal region. No definitive area of palpable tracking. Psychiatric: Cooperative, appropriate mood & affect, normal judgment. (Alma Delia Ghotra) Course <Girish White - Last Filed: 01/05/18 17:35> <Alma Delia Ghotra - Last Filed: 01/05/18 18:10> Vital Signs 01/05/18 01/05/18 14:40 17:25 Temperature 98.7 F Pulse Rate 114 H 74 Respiratory 18 16 Rate Blood Pressure 103/69 121/85 O2 Sat by Pulse 95 97 Oximetry - Reevaluation(s) Reevaluation #1: 01/05/18 17:35 PA supervision: I proceeded [id number] evaluation the patient I did discuss the history of his presentation as well as examine his right lower extremity does demonstrate an area approximately 3 cm in diameter of open flash with a surrounding area approximately one to one half percent total by surface area of erythema induration and tenderness palpation. This started about a week ago and has gotten progressively worse. I do agree with the assessment and plan patient be admitted with consultation by surgery and ID. I did discuss case with Dr. Bateman. Patient was placed on broad-spectrum antibiotics. (Girish White ) Medical Decision Making - Lab Data Result diagrams: 01/05/18 15:45 01/05/18 15:45 <Girish White - Last Filed: 01/05/18 17:35> - Lab Data Result diagrams: 01/05/18 15:45 01/05/18 15:45 <Alma Delia Ghotra - Last Filed: 01/05/18 18:10> - Medical Decision Making Upon arrival patient appears nontoxic, hemodynamically stable. Patient's vital signs as noted above. Laboratories medical for elevated lactic acid. Physical exam findings concerning for abscess with possible tracking and surrounding cellulitis, does not appear to be gangrene/1 years gangrene. X-ray obtained no evidence of gas bubbles in the subcutaneous tissues. Patient was given 1 L bolus and started on broad-spectrum antibiotics. Including Zosyn and vancomycin. Patient was evaluated in person [id number] by Dr. White agreed impression and plan. Pt was admitted to Dr. Bateman with ID and surgical consult. Pt is agreeable with admission. Patient was given morphine and Dilaudid for pain management during stay in emergency department. Patient was transferred to the floor in stable condition, no furthers at this time from admitting physician. (Alma Delia Ghotra) - Lab Data Lab Results 01/05/18 01/05/18 01/05/18 Range/Units 15:45 15:45 15:45 WBC 3.9 (3.8-10.6) k/uL RBC 4.34 (4.30-5.90) m/uL Hgb 13.2 (13.0-17.5) gm/dL Hct 41.1 (39.0-53.0) % MCV 94.8 (80.0-100.0) fL MCH 30.5 (25.0-35.0) pg MCHC 32.2 (31.0-37.0) g/dL RDW 15.5 (11.5-15.5) % Plt Count 35 L (150-450) k/uL Neutrophils % 74 % Lymphocytes % 16 % Monocytes % 6 % Eosinophils % 2 % Basophils % 1 % Neutrophils # 2.9 (1.3-7.7) k/uL Lymphocytes # 0.6 L (1.0-4.8) k/uL Monocytes # 0.3 (0-1.0) k/uL Eosinophils # 0.1 (0-0.7) k/uL Basophils # 0.0 (0-0.2) k/uL Sodium 141 (137-145) mmol/L Potassium 4.0 (3.5-5.1) mmol/L Chloride 111 H (98-107) mmol/L Carbon Dioxide 21 L (22-30) mmol/L Anion Gap 9 mmol/L BUN 7 L (9-20) mg/dL Creatinine 0.75 (0.66-1.25) mg/dL Est GFR (CKD-EPI)AfAm >90 (>60 ml/min/1.73 sqM) Est GFR (CKD-EPI)NonAf >90 (>60 ml/min/1.73 sqM) Glucose 117 H (74-99) mg/dL Plasma Lactic Acid Reji 2.3 H* (0.7-2.0) mmol/L Calcium 8.2 L (8.4-10.2) mg/dL Total Bilirubin 2.4 H (0.2-1.3) mg/dL AST 44 (17-59) U/L ALT 22 (21-72) U/L Alkaline Phosphatase 109 (38-126) U/L Total Protein 6.7 (6.3-8.2) g/dL Albumin 3.0 L (3.5-5.0) g/dL Disposition <Girish White - Last Filed: 01/05/18 17:35> Is patient prescribed a controlled substance at d/c from ED?: No Time of Disposition: 17:40 Decision to Admit Reason: Admit from EC Decision Date: 01/05/18 Decision Time: 17:41 <Alma Delia Ghotra - Last Filed: 01/05/18 18:10> Clinical Impression: Cellulitis, Abscess of right thigh Disposition: ADMITTED IP TO THIS HOSP Condition: Stable
--- NOTE | 2018-01-05 16:30 | XR ---
EXAMINATION TYPE: XR femur RT DATE OF EXAM: 01/05/2018 CLINICAL HISTORY: Open wound right hip area. TECHNIQUE: Two views of the right femur are obtained. COMPARISON: None FINDINGS: There is no acute fracture or dislocation seen in the right femur. The right hip and knee joints appear within normal limits. No suspicious cortical destruction or periosteal reaction is pr esent. The overlying soft tissue appears unremarkable. IMPRESSION: As above.
[2018-01-05 16:44] LABS: Basophils % (A) 1 %; Eosinophils # (A) 0.1 k/uL (0-0.7); Eosinophils % (A) 2 %; HCT 41.1 % (39.0-53.0); HGB 13.2 gm/dL (13.0-17.5); Lymphocytes # (A) 0.6 k/uL (1.0-4.8); Lymphocytes % (A) 16 %; MCH 30.5 pg (25.0-35.0); MCHC 32.2 g/dL (31.0-37.0); MCV 94.8 fL (80.0-100.0); Mean Platelet Volume 8.6; Monocytes # (A) 0.3 k/uL (0-1.0); Monocytes % (A) 6 %; Neutrophils # (A) 2.9 k/uL (1.3-7.7); Neutrophils % (A) 74 %; RBC 4.34 m/uL (4.30-5.90); RDW 15.5 % (11.5-15.5); WBC 3.9 k/uL (3.8-10.6)
[2018-01-05 16:51] LABS: ALT 22 U/L (21-72); AST 44 U/L (17-59); Alkaline Phosphatase 109 U/L (38-126); Anion Gap 9 mmol/L; Blood Urea Nitrogen 7 mg/dL (9-20); Calcium 8.2 mg/dL (8.4-10.2); Carbon Dioxide 21 mmol/L (22-30); Chloride 111 mmol/L (98-107); Glucose 117 mg/dL (74-99); Sodium 141 mmol/L (137-145); Total Bilirubin 2.4 mg/dL (0.2-1.3); Total Protein 6.7 g/dL (6.3-8.2)
[2018-01-05] MEDS ORDERED: PIPERACILLIN-TAZOBACTAM 3.375 GM in SODIUM CHLORIDE 0.9% 100 ML IVPB STA (17:21)
[2018-01-05] MEDS ORDERED: NALOXONE 0.4 MG/ML 1 ML VIAL IV PRN (17:21)
[2018-01-05] MEDS ORDERED: MORPHINE SULFATE 2 MG/ML SYRINGE IVP PRN (17:22)
[2018-01-05] MEDS ORDERED: HYDROmorphone 1 MG/ML 1 ML SYRINGE IVP STA (17:23)
[2018-01-05] MEDS ORDERED: VANCOMYCIN IV PER PHARMACY 1 EACH MISC MISCELLANE PRN ×2 (17:33→21:53)
[2018-01-05] MEDS ORDERED: VANCOMYCIN 1,500 MG in SODIUM CHLORIDE 0.9% 250 ML IVPB STA (17:47)
[2018-01-05 17:52] LABS: Platelet Count 35 k/uL (150-450)
[2018-01-05] MEDS: HYDROmorphone 1 MG/ML 1 ML SYRINGE IVP PRN (22:22)
[2018-01-05] MEDS: NICOTINE 14MG/24HR PATCH TRANSDERM SCH (22:24)
[2018-01-05] MEDS: SODIUM CHLORIDE 0.9% 1,000 ML IV SCH (22:24)
[2018-01-05] MEDS: FLUoxetine HCL 20 MG CAP PO SCH (22:24)
[2018-01-06] MEDS: PIPERACILLIN-TAZOBACTAM 3.375 GM in SODIUM CHLORIDE 0.9% 100 ML IVPB SCH ×4 (01:23→23:16)
[2018-01-06] MEDS: HYDROmorphone 1 MG/ML 1 ML SYRINGE IVP PRN ×7 (01:25→21:19)
[2018-01-06] MEDS: VANCOMYCIN 1,250 MG in SODIUM CHLORIDE 0.9% 250 ML IVPB SCH ×3 (03:45→20:37)
[2018-01-06] MEDS: LEVOTHYROXINE 25 MCG TAB PO SCH (05:48)
[2018-01-06] MEDS: FLUoxetine HCL 20 MG CAP PO SCH (08:51)
[2018-01-06] MEDS: NICOTINE 14MG/24HR PATCH TRANSDERM SCH (08:51)
[2018-01-06] MEDS: SUCRALFATE 1 GM TAB PO SCH ×3 (10:51→20:43)
[2018-01-06] MEDS: THIAMINE 100 MG TAB PO SCH ×2 (10:51→15:38)
[2018-01-06] MEDS: FERROUS SULFATE 325 MG TAB PO SCH (10:51)
[2018-01-06] MEDS: MULTIVITAMINS, THERA 1 EACH TAB PO SCH (10:51)
[2018-01-06] MEDS: MAGNESIUM OXIDE 400 MG TAB PO SCH (10:51)
[2018-01-06] MEDS: PANTOPRAZOLE 40 MG TABLET PO SCH (10:51)
--- NOTE | 2018-01-06 13:51 | P.GSCN ---
History of Present Illness Consult date: 01/06/18 Reason for Consult: Right thigh abscess History of present illness: 42-year-old male presented to the emergency room to be evaluated for increased redness tenderness with foul odor noted from a draining right anterior thigh abscess given the above clinical presentation the attending is requesting a surgical eval for possible incision and drainage of the infected area. Patient' s a poor historian has poor recall states that on Thursday last week he noted a bump on his right anterior thigh. He did not recall if he bumped his right thigh or if he was bitten by a spider stated that on Thursday was a huge blister that broke and started draining a lot of drainage possible blood with an older patient stated over the weekend continued to drain came more tender more red to the touch. Came concerned presented to the emergency room. Patient denied any fever chills when questioning. Does give a history of having prior MRSA. Patient does have a history of alcoholic hepatic cirrhosis with portal hypertension with a prior GI bleed. . Patient states he has limited mobility due to severe peripheral neuropathy with spinal stenosis. And that he often bumps into things at home Patient additionally has chronic thrombocytopenia likely due to chronic alcoholism platelets on admission 35 On admission there is an abscess right anterior thigh measures 3 cm with surrounding erythema with edema does not extend beyond the reference markings draining serous drainage with an older Review of Systems Essentially unremarkable except as mentioned in the present illness Past Medical History Past Medical History: GERD/Reflux, GI Bleed, Hypertension, Liver Disease, Thyroid Disorder Additional Past Medical History / Comment(s): Liver cirrhosis, portal htn, ETOH abuse, esophageal varicies, upper GI bleed, chronic thrombocytopenia, coagulopathy, pancytopenia, ascities, spinal stenosis: back/leg and feet pain, DDD, chronic back pain, neuropathy bilateral legs/feet, falls, bronchitis, past L rib fractures after fall off ladder,03-05-17 fall w/ head injury. 2010 Guillian Sproul, chronic pancreatitis History of Any Multi-Drug Resistant Organisms: None Reported Past Surgical History: Appendectomy, Joint Replacement Additional Past Surgical History / Comment(s): EGDs paracentesis, back injections, R thumb reattachment, circumcism. Past Anesthesia/Blood Transfusion Reactions: No Reported Reaction Additional Past Anesthesia/Blood Transfusion Reaction / Comm: Pt has received blood without reaction. Smoking Status: Current every day smoker - Past Family History Father Family Medical History: No Reported History Additional Family Medical History / Comment(s): Pt does not know his father's medical hx. Mother Family Medical History: No Reported History Additional Family Medical History / Comment(s): Mother is healthy. Medications and Allergies Home Medications Medication Instructions Recorded Confirmed Type Vitamin B Complex 1 cap PO DAILY 03/04/16 01/05/18 History Levothyroxine Sodium [Synthroid] 25 mcg PO DAILY 05/07/16 01/05/18 History Ascorbic Acid [Vitamin C] 500 mg PO DAILY 01/02/17 01/05/18 History Pantoprazole Sodium [Protonix] 20 mg PO BID 01/02/17 01/05/18 History Ferrous Sulfate [Iron (65 MG 325 mg PO DAILY 01/15/17 01/05/18 History Elemental)] Sucralfate [Carafate] 1 gm PO QID 01/15/17 01/05/18 History Magnesium 200 mg PO DAILY 03/05/17 01/05/18 History Multivitamin [Men's Multi-Vitamin] 1 tab PO DAILY 03/05/17 01/05/18 History Calcium Carb-Vit D 500Mg-200Un 1 each PO TID-W/MEALS tab 03/11/17 01/05/18 Rx [Oscal 500+D] FLUoxetine HCL [PROzac] 20 mg PO DAILY #30 cap 03/11/17 01/05/18 Rx Nicotine 21Mg/24Hr Patch [Habitrol] 1 patch TRANSDERM DAILY #30 patch 03/11/17 01/05/18 Rx Thiamine [Vitamin B-1] 100 mg PO BID@1200,1700 tab 03/11/17 01/05/18 Rx Allergies Allergy/AdvReac Type Severity Reaction Status Date / Time No Known Allergies Allergy Verified 01/05/18 15:47 Surgical - Exam Vital Signs Temp Pulse Resp BP Pulse Ox 98.7 F 114 H 18 103/69 95 01/05/18 14:40 01/05/18 14:40 01/05/18 14:40 01/05/18 14:40 01/05/18 14:40 GENERAL APPEARANCE: 42 year old male patient is alert, oriented, in no acute distress. Sitting up in bed VITAL SIGNS: Reviewed HEENT: Head is normocephalic and atraumatic. Pupils are equal and reactive. The nares are patent. Oropharynx is clear without lesions. NECK: Supple without lymphadenopathy. Traches midline. HEART: S1, S2. Regular rate and rhythm. No murmur noted LUNGS: No crackles or wheezes are heard. No shortness of breath ABDOMEN: Soft, flat nontender, nondistended with good bowel sounds. No peritoneal signs. No palpable organomegaly or masses reports no nausea vomiting tolerating a diet. EXTREMITIES: Right anterior thigh abscess noted approximately 3 cm in diameter with surrounding edema and erythema draining serous older drainage swelling does not radiate to the groin no increase from reference markings reports tenderness around the site Radial pedal pulses are 2/4 bilaterally. NEUROLOGICAL: No focal deficits. Strength and sensation are grossly intact. Results - Labs 01/05/18 15:45 01/05/18 15:45 Abnormal Lab Results - Last 24 Hours (Table) 01/05/18 01/05/18 01/05/18 Range/Units 15:45 15:45 15:45 Plt Count 35 L (150-450) k/uL Lymphocytes # 0.6 L (1.0-4.8) k/uL Chloride 111 H (98-107) mmol/L Carbon Dioxide 21 L (22-30) mmol/L BUN 7 L (9-20) mg/dL Glucose 117 H (74-99) mg/dL Plasma Lactic Acid Reji 2.3 H* (0.7-2.0) mmol/L Calcium 8.2 L (8.4-10.2) mg/dL Total Bilirubin 2.4 H (0.2-1.3) mg/dL Albumin 3.0 L (3.5-5.0) g/dL Microbiology - Last 24 Hours (Table) 01/05/18 15:45 Gram Stain - Preliminary Leg - Right Wound Culture - Preliminary Diabetes panel 01/05/18 Range/Units 15:45 Sodium 141 (137-145) mmol/L Potassium 4.0 (3.5-5.1) mmol/L Chloride 111 H (98-107) mmol/L Carbon Dioxide 21 L (22-30) mmol/L BUN 7 L (9-20) mg/dL Creatinine 0.75 (0.66-1.25) mg/dL Glucose 117 H (74-99) mg/dL Calcium 8.2 L (8.4-10.2) mg/dL AST 44 (17-59) U/L ALT 22 (21-72) U/L Alkaline Phosphatase 109 (38-126) U/L Total Protein 6.7 (6.3-8.2) g/dL Albumin 3.0 L (3.5-5.0) g/dL Calcium panel 01/05/18 Range/Units 15:45 Calcium 8.2 L (8.4-10.2) mg/dL Albumin 3.0 L (3.5-5.0) g/dL Pituitary panel 01/05/18 Range/Units 15:45 Sodium 141 (137-145) mmol/L Potassium 4.0 (3.5-5.1) mmol/L Chloride 111 H (98-107) mmol/L Carbon Dioxide 21 L (22-30) mmol/L BUN 7 L (9-20) mg/dL Creatinine 0.75 (0.66-1.25) mg/dL Glucose 117 H (74-99) mg/dL Calcium 8.2 L (8.4-10.2) mg/dL Adrenal panel 01/05/18 Range/Units 15:45 Sodium 141 (137-145) mmol/L Potassium 4.0 (3.5-5.1) mmol/L Chloride 111 H (98-107) mmol/L Carbon Dioxide 21 L (22-30) mmol/L BUN 7 L (9-20) mg/dL Creatinine 0.75 (0.66-1.25) mg/dL Glucose 117 H (74-99) mg/dL Calcium 8.2 L (8.4-10.2) mg/dL Total Bilirubin 2.4 H (0.2-1.3) mg/dL AST 44 (17-59) U/L ALT 22 (21-72) U/L Alkaline Phosphatase 109 (38-126) U/L Total Protein 6.7 (6.3-8.2) g/dL Albumin 3.0 L (3.5-5.0) g/dL Assessment and Plan Assessment: Impression Present on admission right anterior thigh abscess lesion 3 cm in diameter with surrounding erythema and edema no involvement of the groin draining foul odor no tenderness to the touch unclear etiology History of prior MRSA History alcohol liver cirrhosis with portal hypertension with prior GI bleeding Chronic Thrombocytopenia secondary to cirrhosis of the liver platelets 35 Right femur x-ray shows no evidence of an acute fracture or dislocation no suspicious destruction Plan Continue management per the attending and consultants No incision and drainage at this time of the right anterior thigh abscess We'll follow with you IV Zosyn as ordered Further recommendations pending clinical course Wound care per infectious disease follow-up on cultures Surgical consultation dictated for Dr. monreal The above impression and plan of care have been discussed and directed by signing physician. Celeste Pierson nurse practitioner acting as scribe for signing physician.
--- NOTE | 2018-01-06 14:07 | P.HPIM ---
History of Present Illness H&P Date: 01/06/18 Chief Complaint: Wound This is a 40-year-old male patient of Dr. Sarmad Linn. He has history of alcohol liver cirrhosis with portal hypertension and previous GI bleeding, hypertension and gastritis, pancreatitis, spinal stenosis and peripheral neuropathy. He is also known to Dr. Smart from previous EGDs in the past. This was last performed in 01/16/2017 with small distal esophageal varices. He was admitted for acute GI bleed in Jan 2016, Mar 2016 and Mar 2017. Patient states that he noticed a bump on the lateral side of his right leg last week and then on Thursday and broke open and started draining pus and blood. He denies having any injury, scratch to the area. He denies any history of diabetes. No history of MRSA. He did not see his PCP. He does state that in the summertime he gets lesions on his inside of his thighs and the end up popping and going away on their own. Patient denies any recent alcohol intake. He states he has been heavy alcohol intake in the past up to a pint per day for 7 years but now only drinks an occasional beer. He presented to [facility] emergency center. He has been afebrile, normal white count, hemoglobin 13.2, platelet count 35, creatinine 0.75. Initial lactic acid 2.3 and repeat 1.5. Total bilirubin 2.4. AST, ALT and alk phos within normal limits. Albumin 3.0. Wound culture and blood culture have been obtained. Patient was started on vancomycin and Zosyn and admitted to the MedSur floor and consult requested Dr. Lerner, infectious disease, and Dr. Jose, general surgery. Review of Systems All systems: negative Constitutional: Reports weakness, Denies chills, Denies fatigue, Denies fever, Denies lethargy, Denies malaise, Denies poor appetite, Denies weight loss Eyes: denies blurred vision, denies pain Ears, nose, mouth and throat: Denies dysphagia, Denies headache, Denies mouth pain, Denies sore throat, Denies vertigo Cardiovascular: Denies chest pain, Denies decreased exercise tolerance, Denies dyspnea on exertion, Denies edema, Denies leg edema, Denies shortness of breath , Denies syncope Respiratory: Denies congestion, Denies cough, Denies cough with sputum, Denies dyspnea, Denies excessive sputum, Denies hemoptysis, Denies home oxygen, Denies wheezing Gastrointestinal: Denies abdominal pain, Denies diarrhea, Denies nausea, Denies vomiting Genitourinary: Denies dysuria, Denies urinary frequency, Denies urinary retention Musculoskeletal: Reports muscle weakness, Denies frequent falls, Denies gait dysfunction, Denies low back pain, Denies myalgias Integumentary: Reports color changes, Reports wounds, Denies pruritus, Denies rash Neurological: Denies change in mentation, Denies confusion, Denies numbness, Denies weakness Psychiatric: Denies anxiety, Denies depression Endocrine: Denies fatigue, Denies weight change Past Medical History Past Medical History: GERD/Reflux, GI Bleed, Hypertension, Liver Disease, Thyroid Disorder Additional Past Medical History / Comment(s): Liver cirrhosis, portal htn, ETOH abuse, esophageal varicies, upper GI bleed, chronic thrombocytopenia, coagulopathy, pancytopenia, ascities, spinal stenosis: back/leg and feet pain, DDD, chronic back pain, neuropathy bilateral legs/feet, falls, bronchitis, past L rib fractures after fall off ladder,03-05-17 fall w/ head injury. 2010 [place], chronic pancreatitis History of Any Multi-Drug Resistant Organisms: None Reported Past Surgical History: Appendectomy, Joint Replacement Additional Past Surgical History / Comment(s): EGDs paracentesis, back injections, R thumb reattachment, circumcism. Past Anesthesia/Blood Transfusion Reactions: No Reported Reaction Additional Past Anesthesia/Blood Transfusion Reaction / Comment(s): Pt has received blood without reaction. Smoking Status: Current every day smoker Additional Past Alcohol Use History / Comment(s): Patient is a smoker of a pack per day for 27 years. He denies any marijuana or street drug use. He does have history of heavy alcohol use with drinking up to a pint per day for 7 years but he currently is only drinking an occasional beer. He is on disability. He is currently living with his mother. He does have a dog in the home exposure to his daughter's cat. He uses a cane for ambulation. - Past Family History Father Family Medical History: No Reported History Additional Family Medical History / Comment(s): Pt does not know his father's medical hx. Mother Family Medical History: No Reported History Additional Family Medical History / Comment(s): Mother is healthy. Medications and Allergies Home Medications Medication Instructions Recorded Confirmed Type Vitamin B Complex 1 cap PO DAILY 03/04/16 01/05/18 History Levothyroxine Sodium [Synthroid] 25 mcg PO DAILY 05/07/16 01/05/18 History Ascorbic Acid [Vitamin C] 500 mg PO DAILY 01/02/17 01/05/18 History Pantoprazole Sodium [Protonix] 20 mg PO BID 01/02/17 01/05/18 History Ferrous Sulfate [Iron (65 MG 325 mg PO DAILY 01/15/17 01/05/18 History Elemental)] Sucralfate [Carafate] 1 gm PO QID 01/15/17 01/05/18 History Magnesium 200 mg PO DAILY 03/05/17 01/05/18 History Multivitamin [Men's Multi-Vitamin] 1 tab PO DAILY 03/05/17 01/05/18 History Calcium Carb-Vit D 500Mg-200Un 1 each PO TID-W/MEALS tab 03/11/17 01/05/18 Rx [Oscal 500+D] FLUoxetine HCL [PROzac] 20 mg PO DAILY #30 cap 03/11/17 01/05/18 Rx Nicotine 21Mg/24Hr Patch [Habitrol] 1 patch TRANSDERM DAILY #30 patch 03/11/17 01/05/18 Rx Thiamine [Vitamin B-1] 100 mg PO BID@1200,1700 tab 03/11/17 01/05/18 Rx Allergies Allergy/AdvReac Type Severity Reaction Status Date / Time No Known Allergies Allergy Verified 01/05/18 15:47 Physical Exam Vitals: Vital Signs Temp Pulse Pulse Resp BP BP Pulse Ox 01/06/18 08:02 98.1 F 85 18 135/83 97 01/06/18 06:08 98.5 F 72 18 123/86 96 01/05/18 23:00 98.2 F 69 18 140/93 96 01/05/18 18:51 89 16 127/97 98 01/05/18 17:25 74 16 121/85 97 01/05/18 14:40 98.7 F 114 H 18 103/69 95 Intake and Output 01/05/18 01/06/18 01/06/18 22:59 06:59 14:59 Output Total 650 Balance -650 Output: Urine 650 Other: Voiding Method Urinal # Voids 1 General appearance: average body habitus, cooperative, severe distress - EENT Eyes: EOMI, PERRLA, no photophobia, poor dentition, no ptosis, scleral icterus ENT: hearing grossly normal, normal oropharynx Ears: bilateral: normal - Neck Neck: lymphadenopathy Carotids: bilateral: upstroke normal - Respiratory Respiratory: bilateral: CTA, negative: diminished, dullness, rales, rhonchi, wheezing - Cardiovascular Rhythm: regular Heart sounds: normal: S1, S2 Abnormal Heart Sounds: no systolic murmur, no diastolic murmur, no rub, no click - Gastrointestinal General gastrointestinal: decreased bowel sounds, distended, soft, tenderness Localized gastrointestinal: tender: diffuse, epigastric periumbilical (worse), guarding: diffuse - Integumentary Integumentary: no cyanotic, jaundiced, rash (left frontal hematoma and foot bruise ont he dorasal aspect of the left foot ), no ulcer - Neurologic Neurologic: CNII-XII intact - Musculoskeletal Musculoskeletal: generalized weakness, large open wound to the right anterior thigh area with bloody pustulant drainage. Very foul order. There is surrounding erythema. - Psychiatric Psychiatric: A&O x's 3, appropriate affect Results CBC & Chem 7: 01/05/18 15:45 01/05/18 15:45 Labs: Abnormal Lab Results - Last 24 Hours (Table) 01/05/18 01/05/18 01/05/18 Range/Units 15:45 15:45 15:45 Plt Count 35 L (150-450) k/uL Lymphocytes # 0.6 L (1.0-4.8) k/uL Chloride 111 H (98-107) mmol/L Carbon Dioxide 21 L (22-30) mmol/L BUN 7 L (9-20) mg/dL Glucose 117 H (74-99) mg/dL Plasma Lactic Acid Reji 2.3 H* (0.7-2.0) mmol/L Calcium 8.2 L (8.4-10.2) mg/dL Total Bilirubin 2.4 H (0.2-1.3) mg/dL Albumin 3.0 L (3.5-5.0) g/dL Microbiology - Last 24 Hours (Table) 01/05/18 15:45 Gram Stain - Preliminary Leg - Right Wound Culture - Preliminary Thrombosis Risk Factor Assmnt - DVT/VTE Prophylaxis DVT/VTE Prophylaxis: Mechanical Prophylaxis ordered - Choose All That Apply Any of the Below Risk Factors Present?: Yes Each Factor Represents 1 point: Age 41-60 years Other Risk Factors: No Thrombosis Risk Factor Assessment Total Risk Factor Score: 1 Thrombosis Risk Factor Assessment Level: Low Risk Assessment and Plan Plan: 1. Wound to the right thigh patient is currently on vancomycin and Zosyn. Consult with Dr. Lerner in Dr. Jose. Await further input. Wound culture and blood culture in progress. 2. History of alcoholic liver disease with portal hypertension and previous episodes of acute GI bleed with acute blood loss anemia resulting in multiple hospitalizations for GI bleeding from esophageal varices status post banding. Continue ferrous sulfate, magnesium oxide, multivitamin, thiamine, . 3. Chronic thrombocytopenia secondary to chronic EtOH related bone marrow damage and portal hypertension causing splenic sequestration. 4. Spinal stenosis with peripheral neuropathy. 4. History of pancreatitis. 5. Tobacco use and dependence. Nicotine patch. 6. Hypothyroidism. Continue levothyroxine 25 g daily. 7. GI prophylaxis and history of nonsteroidal anti-inflammatory gastropathy. Continue Carafate, Protonix 8. Recurrent depression. Continue Prozac 20 mg daily. 9. DVT prophylaxis. No heparin due to thrombocytopenia. SCDs and ANDREEA hose and early ambulation. Patient will be admitted to the hospital for a minimum of 2 night stay. Discharge plan: Home Impression and plan of care have been directed as dictated by the signing physician. Giovana Kathleen nurse practitioner acting as scribe for signing physician.
--- NOTE | 2018-01-06 14:19 | P.CONS ---
History of Present Illness - Reason for Consult Consult date: 01/06/18 Right lower extremity cellulitis with open wound - History of Present Illness This is a 42-year-old male patient with history of alcohol liver cirrhosis with portal hypertension and previous GI bleeding, hypertension and gastritis, pancreatitis, spinal stenosis and peripheral neuropathy. He is also known to Dr. Smart from previous EGDs in the past. This was last performed in with small distal esophageal varices. He was admitted for acute GI bleed in Jan 2016, Mar 2016 and Mar 2017. Patient states that he noticed a bump on the lateral side of his right leg last week and then on Thursday and broke open and started draining pus and blood. He denies having any injury, scratch to the area. He denies any history of diabetes. No history of MRSA. He did not see his PCP. He does state that in the summertime he gets lesions on his inside of his thighs and the end up popping and going away on their own. Patient denies any recent alcohol intake. He states he has been heavy alcohol intake in the past up to a pint per day for 7 years but now only drinks an occasional beer. He presented to [facility] emergency center. He has been afebrile, normal white count, hemoglobin 13.2, platelet count 35, creatinine 0.75. Initial lactic acid 2.3 and repeat 1.5. Total bilirubin 2.4. AST, ALT and alk phos within normal limits. Albumin 3.0. Wound culture and blood culture have been obtained. Patient was started on vancomycin and Zosyn and admitted to the MedSur floor. There is a consult in place for Dr. Jose, general surgery, as well. Review of Systems All systems: negative Constitutional: Reports chronic pain, Reports weakness, Denies chills, Denies fatigue, Denies fever, Denies poor appetite, Denies weight loss Eyes: denies blurred vision, denies pain Ears, nose, mouth and throat: Denies dental pain, Denies headache, Denies hoarseness, Denies mouth pain, Denies sore throat, Denies vertigo Cardiovascular: Denies chest pain, Denies decreased exercise tolerance, Denies dyspnea on exertion, Denies edema, Denies leg edema, Denies palpitations, Denies shortness of breath, Denies syncope Respiratory: Denies cough, Denies cough with sputum, Denies dyspnea, Denies excessive sputum, Denies hemoptysis, Denies home oxygen, Denies wheezing Gastrointestinal: Denies abdominal pain, Denies diarrhea, Denies loss of appetite, Denies melena, Denies nausea, Denies vomiting Genitourinary: Denies dysuria, Denies urinary frequency, Denies urinary retention Musculoskeletal: Reports gait dysfunction, Reports muscle weakness, Denies frequent falls, Denies myalgias Integumentary: Reports darkening of skin, Reports wounds, Denies pruritus, Denies rash Neurological: Reports gait dysfunction, Denies change in mentation, Denies confusion, Denies numbness, Denies weakness Psychiatric: Denies anxiety, Denies depression Endocrine: Denies fatigue, Denies weight change Past Medical History Past Medical History: GERD/Reflux, GI Bleed, Hypertension, Liver Disease, Thyroid Disorder Additional Past Medical History / Comment(s): Liver cirrhosis, portal htn, ETOH abuse, esophageal varicies, upper GI bleed, chronic thrombocytopenia, coagulopathy, pancytopenia, ascities, spinal stenosis: back/leg and feet pain, DDD, chronic back pain, neuropathy bilateral legs/feet, falls, bronchitis, past L rib fractures after fall off ladder,03-05-17 fall w/ head injury. 2010 [facility] [place], chronic pancreatitis History of Any Multi-Drug Resistant Organisms: None Reported Past Surgical History: Appendectomy, Joint Replacement Additional Past Surgical History / Comment(s): EGDs paracentesis, back injections, R thumb reattachment, circumcism. Past Anesthesia/Blood Transfusion Reactions: No Reported Reaction Additional Past Anesthesia/Blood Transfusion Reaction / Comm: Pt has received blood without reaction. Smoking Status: Current every day smoker Additional Past Alcohol Use History / Comment(s): Patient is a smoker of a pack per day for 27 years. He denies any marijuana or street drug use. He does have history of heavy alcohol use with drinking up to a pint per day for 7 years but he currently is only drinking an occasional beer. He is on disability. He is currently living with his mother. He does have a dog in the home exposure to his daughter's cat. He uses a cane for ambulation. - Past Family History Father Family Medical History: No Reported History Additional Family Medical History / Comment(s): Pt does not know his father's medical hx. Mother Family Medical History: No Reported History Additional Family Medical History / Comment(s): Mother is healthy. Medications and Allergies Home Medications Medication Instructions Recorded Confirmed Type Vitamin B Complex 1 cap PO DAILY 03/04/16 01/05/18 History Levothyroxine Sodium [Synthroid] 25 mcg PO DAILY 05/07/16 01/05/18 History Ascorbic Acid [Vitamin C] 500 mg PO DAILY 01/02/17 01/05/18 History Pantoprazole Sodium [Protonix] 20 mg PO BID 01/02/17 01/05/18 History Ferrous Sulfate [Iron (65 MG 325 mg PO DAILY 01/15/17 01/05/18 History Elemental)] Sucralfate [Carafate] 1 gm PO QID 01/15/17 01/05/18 History Magnesium 200 mg PO DAILY 03/05/17 01/05/18 History Multivitamin [Men's Multi-Vitamin] 1 tab PO DAILY 03/05/17 01/05/18 History Calcium Carb-Vit D 500Mg-200Un 1 each PO TID-W/MEALS tab 03/11/17 01/05/18 Rx [Oscal 500+D] FLUoxetine HCL [PROzac] 20 mg PO DAILY #30 cap 03/11/17 01/05/18 Rx Nicotine 21Mg/24Hr Patch [Habitrol] 1 patch TRANSDERM DAILY #30 patch 03/11/17 01/05/18 Rx Thiamine [Vitamin B-1] 100 mg PO BID@1200,1700 tab 03/11/17 01/05/18 Rx Allergies Allergy/AdvReac Type Severity Reaction Status Date / Time No Known Allergies Allergy Verified 01/05/18 15:47 Physical Exam Vitals: Vital Signs Temp Pulse Pulse Resp BP BP Pulse Ox 01/06/18 08:02 98.1 F 85 18 135/83 97 01/06/18 06:08 98.5 F 72 18 123/86 96 01/05/18 23:00 98.2 F 69 18 140/93 96 01/05/18 18:51 89 16 127/97 98 01/05/18 17:25 74 16 121/85 97 01/05/18 14:40 98.7 F 114 H 18 103/69 95 Intake and Output 01/05/18 01/06/18 01/06/18 22:59 06:59 14:59 Output Total 650 Balance -650 Output: Urine 650 Other: Voiding Method Urinal # Voids 1 General appearance: average body habitus, cooperative, severe distress - EENT Eyes: EOMI, PERRLA, no photophobia, poor dentition, no ptosis, scleral icterus ENT: hearing grossly normal, normal oropharynx Ears: bilateral: normal - Neck Neck: lymphadenopathy Carotids: bilateral: upstroke normal - Respiratory Respiratory: bilateral: CTA, negative: diminished, dullness, rales, rhonchi, wheezing - Cardiovascular Rhythm: regular Heart sounds: normal: S1, S2 Abnormal Heart Sounds: no systolic murmur, no diastolic murmur, no rub, no click - Gastrointestinal General gastrointestinal: decreased bowel sounds, distended, soft, tenderness Localized gastrointestinal: tender: diffuse, epigastric periumbilical (worse), guarding: diffuse - Integumentary Integumentary: no cyanotic, jaundiced, rash (left frontal hematoma and foot bruise ont he dorasal aspect of the left foot ), no ulcer - Neurologic Neurologic: CNII-XII intact - Musculoskeletal Musculoskeletal: generalized weakness, large open wound to the right anterior thigh area with bloody pustulant drainage. Very foul order. There is surrounding erythema. + right groin lymph node. - Psychiatric Psychiatric: A&O x's 3, appropriate affect Results Results: Laboratory Results WBC 3.9 k/uL (3.8-10.6) 01/05/18 15:45 RBC 4.34 m/uL (4.30-5.90) 01/05/18 15:45 Hgb 13.2 gm/dL (13.0-17.5) 01/05/18 15:45 Hct 41.1 % (39.0-53.0) 01/05/18 15:45 MCV 94.8 fL (80.0-100.0) 01/05/18 15:45 MCH 30.5 pg (25.0-35.0) 01/05/18 15:45 MCHC 32.2 g/dL (31.0-37.0) 01/05/18 15:45 RDW 15.5 % (11.5-15.5) 01/05/18 15:45 Plt Count 35 k/uL (150-450) L 01/05/18 15:45 Neutrophils % 74 % 01/05/18 15:45 Lymphocytes % 16 % 01/05/18 15:45 Monocytes % 6 % 01/05/18 15:45 Eosinophils % 2 % 01/05/18 15:45 Basophils % 1 % 01/05/18 15:45 Neutrophils # 2.9 k/uL (1.3-7.7) 01/05/18 15:45 Lymphocytes # 0.6 k/uL (1.0-4.8) L 01/05/18 15:45 Monocytes # 0.3 k/uL (0-1.0) 01/05/18 15:45 Eosinophils # 0.1 k/uL (0-0.7) 01/05/18 15:45 Basophils # 0.0 k/uL (0-0.2) 01/05/18 15:45 Sodium 141 mmol/L (137-145) 01/05/18 15:45 Potassium 4.0 mmol/L (3.5-5.1) 01/05/18 15:45 Chloride 111 mmol/L (98-107) H 01/05/18 15:45 Carbon Dioxide 21 mmol/L (22-30) L 01/05/18 15:45 Anion Gap 9 mmol/L 01/05/18 15:45 BUN 7 mg/dL (9-20) L 01/05/18 15:45 Creatinine 0.75 mg/dL (0.66-1.25) 01/05/18 15:45 Est GFR (CKD-EPI)AfAm >90 (>60 ml/min/1.73 sqM) 01/05/18 15:45 Est GFR (CKD-EPI)NonAf >90 (>60 ml/min/1.73 sqM) 01/05/18 15:45 Glucose 117 mg/dL (74-99) H 01/05/18 15:45 Lactic Ac Sepsis Rflx Y 01/05/18 16:54 Plasma Lactic Acid Reji 1.5 mmol/L (0.7-2.0) 01/05/18 20:10 Calcium 8.2 mg/dL (8.4-10.2) L 01/05/18 15:45 Total Bilirubin 2.4 mg/dL (0.2-1.3) H 01/05/18 15:45 AST 44 U/L (17-59) 01/05/18 15:45 ALT 22 U/L (21-72) 01/05/18 15:45 Alkaline Phosphatase 109 U/L (38-126) 01/05/18 15:45 Total Protein 6.7 g/dL (6.3-8.2) 01/05/18 15:45 Albumin 3.0 g/dL (3.5-5.0) L 01/05/18 15:45 CBC & Chem 7: 01/05/18 15:45 01/05/18 15:45 Labs: Abnormal Lab Results - Last 24 Hours (Table) 01/05/18 01/05/18 01/05/18 Range/Units 15:45 15:45 15:45 Plt Count 35 L (150-450) k/uL Lymphocytes # 0.6 L (1.0-4.8) k/uL Chloride 111 H (98-107) mmol/L Carbon Dioxide 21 L (22-30) mmol/L BUN 7 L (9-20) mg/dL Glucose 117 H (74-99) mg/dL Plasma Lactic Acid Reji 2.3 H* (0.7-2.0) mmol/L Calcium 8.2 L (8.4-10.2) mg/dL Total Bilirubin 2.4 H (0.2-1.3) mg/dL Albumin 3.0 L (3.5-5.0) g/dL Microbiology - Last 24 Hours (Table) 01/05/18 15:45 Gram Stain - Preliminary Leg - Right Wound Culture - Preliminary Assessment and Plan Plan: This is a 42-year-old male presented to the hospital with a right thigh abscess currently on vancomycin and Zosyn which will be continued. Wound culture and urine culture in progress. Consult with Dr. Rebeca arcos. Continue supportive care. Further recommendations as patient progresses. The above dictated assessment and findings were discussed with Dr. Lerner. The impression and plan of care have been directed as dictated. Giovana Kathleen nurse practitioner acting as scribe for Dr. Lerner.
[2018-01-06] MEDS: SODIUM CHLORIDE 0.9% 1,000 ML IV SCH (15:38)
--- NOTE | 2018-01-06 17:32 | P.PN ---
Progress Note - Text Progress Note Date: 01/06/18 The patient's wound was examined. He has a 3 cm area of skin and fat necrosis related to his wound infection. The cellulitis has improved around the area. There is an area of some of fat and skin necrosis. Patient will have a Aquacel silver wound dressing applied. This will help with debridement of the wound.
[2018-01-06] MEDS ORDERED: VANCOMYCIN TROUGH DUE 1 EACH MISC MISCELLANE ONE (19:00)
--- NOTE | 2018-01-06 23:57 | P.CON ---
Consult Note - . Consult date: 01/06/18 Assessment/Plan:: This is a 42-year-old male patient with history of alcohol liver cirrhosis with portal hypertension and previous GI bleeding, hypertension and gastritis, pancreatitis, spinal stenosis and peripheral neuropathy. He is also known to Dr. Smart from previous EGDs in the past. This was last performed in with small distal esophageal varices. He was admitted for acute GI bleed in Jan 2016, Mar 2016 and Mar 2017. Patient states that he noticed a bump on the lateral side of his right leg last week and then on Thursday and broke open and started draining pus and blood. He denies having any injury, scratch to the area. He denies any history of diabetes. No history of MRSA. He did not see his PCP. He does state that in the summertime he gets lesions on his inside of his thighs and the end up popping and going away on their own. Patient denies any recent alcohol intake. He states he has been heavy alcohol intake in the past up to a pint per day for 7 years but now only drinks an occasional beer. He presented to [facility] emergency center. He has been afebrile, normal white count, hemoglobin 13.2, platelet count 35, creatinine 0.75. Initial lactic acid 2.3 and repeat 1.5. Total bilirubin 2.4. AST, ALT and alk phos within normal limits. Albumin 3.0. Wound culture and blood culture have been obtained. Patient was started on vancomycin and Zosyn and admitted to the MedSur floor. There is a consult in place for Dr. Jose, general surgery, as well. Please see the counselors dictated by nurse practitioner Mrs. Giovana Kathleen. This 42-year-old gentleman has a very extensive past medical history has developed a significant abscess to his right thigh. It is very tender manipulation. There is grossly necrotic material that is present. The case will be discussed with the surgical service and hopefully a debridement and can be performed, the patient is in too much pain to have this done at the bedside without some type of anesthesia. Antibiotic therapy with vancomycin and Zosyn is being used for now while cultures are pending. Local wound care is with a Vaseline dressing given the extremely tender nature to the site. The patient relates his appetite is adequate and we'll try to have a high protein intake to help his healing. Multivitamin is added. Cultures will help direct the course of antibiotic therapy at the time of discharge. He may require imaging such as a CT of his thigh to further evaluate this to pending and how he proceeds in the next short period of time. I agree with evaluation, assessment and plan is dictated by nurse practitioner Mrs. Giovana Kathleen.
[2018-01-07] MEDS: HYDROmorphone 1 MG/ML 1 ML SYRINGE IVP PRN ×4 (00:12→09:45)
[2018-01-07] MEDS: VANCOMYCIN 1,250 MG in SODIUM CHLORIDE 0.9% 250 ML IVPB SCH ×3 (04:12→19:54)
[2018-01-07] MEDS: LEVOTHYROXINE 25 MCG TAB PO SCH (05:50)
[2018-01-07] MEDS: PIPERACILLIN-TAZOBACTAM 3.375 GM in SODIUM CHLORIDE 0.9% 100 ML IVPB SCH ×2 (08:04→15:30)
[2018-01-07] MEDS: THIAMINE 100 MG TAB PO SCH ×2 (08:05→15:25)
[2018-01-07] MEDS: MULTIVITAMINS, THERA 1 EACH TAB PO SCH (08:05)
[2018-01-07] MEDS: MAGNESIUM OXIDE 400 MG TAB PO SCH (08:05)
[2018-01-07] MEDS: SUCRALFATE 1 GM TAB PO SCH ×4 (08:05→21:29)
[2018-01-07] MEDS: FLUoxetine HCL 20 MG CAP PO SCH (08:05)
[2018-01-07] MEDS: NICOTINE 14MG/24HR PATCH TRANSDERM SCH (08:05)
[2018-01-07] MEDS: PANTOPRAZOLE 40 MG TABLET PO SCH (08:05)
[2018-01-07] MEDS: FERROUS SULFATE 325 MG TAB PO SCH (08:06)
[2018-01-07] MEDS ORDERED: NON-FORMULARY DRUG (Vitamin B Complex [Vitamin B Complex] 1 CAP) PO SCH (09:00)
[2018-01-07] MEDS ORDERED: NICOTINE 21MG/24HR PATCH TRANSDERM SCH (09:00)
[2018-01-07 09:19] LABS: Anion Gap 5 mmol/L; Blood Urea Nitrogen 7 mg/dL (9-20); Calcium 7.6 mg/dL (8.4-10.2); Carbon Dioxide 22 mmol/L (22-30); Chloride 109 mmol/L (98-107); Glucose 119 mg/dL (74-99); Potassium 3.8 mmol/L (3.5-5.1); Sodium 136 mmol/L (137-145)
[2018-01-07] MEDS ORDERED: HYDROmorphone 1 MG/ML 1 ML SYRINGE IVP STA (09:49)
--- NOTE | 2018-01-07 10:48 | P.PN ---
Subjective Progress Note Date: 01/07/18 42-year-old male seen at the bedside reviewed the plan of care with the patient. Dr. ryan plans on doing a bedside incision and drainage of the wound involving the right anterior thigh. Patient has a 3 cm area of skin with fat necrosis related to a wound infection cellulitis has improved there is no increase in the reference markings currently has a dressing on right anterior thigh dressings dry Objective - Vital Signs Vital signs: Vital Signs Temp 96.4 F L 01/07/18 07:15 Pulse 79 01/07/18 07:15 Resp 16 01/07/18 07:15 BP 122/83 01/07/18 07:15 Pulse Ox 91 L 01/07/18 07:15 Intake & Output 01/06/18 01/07/18 01/07/18 18:59 06:59 18:59 Intake Total 700 Output Total 700 800 Balance -700 -100 Intake: Oral 700 Output: Urine 700 800 Other: Voiding Method Toilet Toilet Urinal Urinal # Voids 2 2 - Exam Physical exam 42-year-old male resting in bed appears no acute distress states feels anxious about having the procedure done Lungs adequate air movement bilaterally on room air Heart S1-S2 audible regular Abdomen soft reports no nausea vomiting no frequent stooling nondistended nontender Extremities upper extremities unremarkable no pedal edema bilaterally dressing to the right anterior thigh dry. Nursing reports patient has been experiencing pain in the right upper thigh requiring IV pain medication. There is no increase in the redness from the reference markings - Labs CBC & Chem 7: 01/05/18 15:45 01/07/18 08:11 Labs: Abnormal Lab Results - Last 24 Hours (Table) 01/07/18 Range/Units 08:11 Sodium 136 L (137-145) mmol/L Chloride 109 H (98-107) mmol/L BUN 7 L (9-20) mg/dL Glucose 119 H (74-99) mg/dL Calcium 7.6 L (8.4-10.2) mg/dL Microbiology - Last 24 Hours (Table) 01/05/18 15:45 Gram Stain - Preliminary Leg - Right Wound Culture - Preliminary 01/05/18 15:45 Blood Culture - Preliminary Blood No Growth after 24 hours Assessment and Plan Assessment: Impression Present on admission right anterior thigh abscess lesion 3 cm in diameter with surrounding erythema and edema no involvement of the groin draining foul odor no tenderness to the touch unclear etiology History of prior MRSA History alcohol liver cirrhosis with portal hypertension with prior GI bleeding Chronic Thrombocytopenia secondary to cirrhosis of the liver platelets 35 Right femur x-ray shows no evidence of an acute fracture or dislocation no suspicious destruction Plan Continue management per the attending and consultants Bedside incision and drainage of the right anterior thigh abscess today We'll follow with you IV Zosyn and vancomycin as ordered Further recommendations pending clinical course Wound care per infectious disease follow-up on cultures The above impression and plan of care have been discussed and directed by signing physician. Celeste Pierson nurse practitioner acting as scribe for signing physician.
--- NOTE | 2018-01-07 12:24 | CT ---
EXAMINATION TYPE: CT hip RT w con DATE OF EXAM: 01/07/2018 COMPARISON: None HISTORY: Right thigh abscess. CT DLP: 356 mGycm Automated exposure control for dose reduction was used. CONTRAST: Performed with IV Contrast, patient injected with 100 mL of Isovue M300. FINDINGS: Osseous structures appear intact. Femoral head articulates with the acetabulum. Attention is paid to the soft tissues of the thigh. There is anterolateral soft tissue wound. There i s some skin thickening. Some mild inflammatory change underlies this region. Note is made of a large vessel running just deep to this structure. This area measures 1.4 x 2.5 cm. Underlying abscess is no t identified. Phlegmon could be considered. Underlying musculature appears normal. IMPRESSION: SUPERFICIAL WOUND ALONG THE ANTEROLATERAL RIGHT THIGH. UNDERLYING ABSCESS IS NOT IDENTIFIED. PHLEGMON IS NOT ENTIRELY EXCLUDED.
[2018-01-07] MEDS: SODIUM CHLORIDE 0.9% 1,000 ML IV SCH (12:56)
--- NOTE | 2018-01-07 14:34 | P.PN ---
Subjective Progress Note Date: 01/07/18 This is a 40-year-old male patient of Dr. Sarmad Linn. He has history of alcohol liver cirrhosis with portal hypertension and previous GI bleeding, hypertension and gastritis, pancreatitis, spinal stenosis and peripheral neuropathy. He is also known to Dr. Smart from previous EGDs in the past. This was last performed in 01/16/2017 with small distal esophageal varices. He was admitted for acute GI bleed in Jan 2016, Mar 2016 and Mar 2017. Patient states that he noticed a bump on the lateral side of his right leg last week and then on Thursday and broke open and started draining pus and blood. He denies having any injury, scratch to the area. He denies any history of diabetes. No history of MRSA. He did not see his PCP. He does state that in the summertime he gets lesions on his inside of his thighs and the end up popping and going away on their own. Patient denies any recent alcohol intake. He states he has been heavy alcohol intake in the past up to a pint per day for 7 years but now only drinks an occasional beer. He presented to [facility] emergency center. He has been afebrile, normal white count, hemoglobin 13.2, platelet count 35, creatinine 0.75. Initial lactic acid 2.3 and repeat 1.5. Total bilirubin 2.4. AST, ALT and alk phos within normal limits. Albumin 3.0. Wound culture and blood culture have been obtained. Patient was started on vancomycin and Zosyn and admitted to the [facility]Sur floor and consult requested Dr. Lerner, infectious disease, and Dr. Jose, general surgery. 01/07: Consults with Drs. Jose and Yann are appreciated. Patient is continued on IV Zosyn and vancomycin. Wound culture in progress. Patient states that Dr. Jose is planning on bedside debridement this morning. We will order CAT scan of the right thigh. Review Of Systems: Constitutional: No fever, no chills, no night sweats. No weight change. No weakness, fatigue or lethargy. No daytime sleepiness. EENT: No headache. No blurred vision or double vision, no loss of vision. No loss of Hearing, no ringing in the ears, no dizziness. No nasal drainage or congestion. No epistaxis. No sore throat. Lungs: No shortness of breath, cough, no sputum production. No wheezing. Cardiovascular: No chest pain, no lower extremity edema. No palpitations. No paroxysmal nocturnal dyspnea. No orthopnea. No lightheadedness or dizziness. No syncopal episodes. Abdominal: No abdominal pain. No nausea, vomiting. No diarrhea. No constipation. No bloody or tarry stools.. No loss of appetite. Genitourinary: No dysuria, increased frequency, urgency. No urinary retention. Musculoskeletal: Positive right thigh pain. No muscle weakness, no gait dysfunction, no frequent falls. No back pain. No neck pain. Integumentary: + wounds, + drainage. No rash or pruritus. No unusual bruising. No change in hair or nails. Neurologic: No aphasia. No facial droop. No change in mentation. No head injury. No headache. No paralysis. No paresthesia. Psychiatric: No depression. No anxiety. No mood swings. Endocrine: No abnormal blood sugars. No weight change. Objective - Vital Signs Vital signs: Vital Signs Temp 96.4 F L 01/07/18 07:15 Pulse 79 01/07/18 07:15 Resp 16 01/07/18 07:15 BP 122/83 01/07/18 07:15 Pulse Ox 91 L 01/07/18 07:15 Intake & Output 01/06/18 01/07/18 01/07/18 18:59 06:59 18:59 Intake Total 700 Output Total 700 800 Balance -700 -100 Intake: Oral 700 Output: Urine 700 800 Other: Voiding Method Toilet Toilet Urinal Urinal # Voids 2 2 - Exam General appearance: average body habitus, cooperative, severe distress - EENT Eyes: EOMI, PERRLA, no photophobia, poor dentition, no ptosis, scleral icterus ENT: hearing grossly normal, normal oropharynx Ears: bilateral: normal - Neck Neck: lymphadenopathy Carotids: bilateral: upstroke normal - Respiratory Respiratory: bilateral: CTA, negative: diminished, dullness, rales, rhonchi, wheezing - Cardiovascular Rhythm: regular Heart sounds: normal: S1, S2 Abnormal Heart Sounds: no systolic murmur, no diastolic murmur, no rub, no click - Gastrointestinal General gastrointestinal: decreased bowel sounds, distended, soft, tenderness Localized gastrointestinal: no tenderness, epigastric periumbilical, no guarding : diffuse - Integumentary Integumentary: no cyanotic,no ulcer. - Neurologic Neurologic: CNII-XII intact - Musculoskeletal Musculoskeletal: generalized weakness, large open wound to the right anterior thigh area with bloody pustulant drainage. Very foul order. There is surrounding erythema. - Psychiatric Psychiatric: A&O x's 3, appropriate affect - Labs CBC & Chem 7: 01/05/18 15:45 01/07/18 08:11 Labs: Microbiology - Last 24 Hours (Table) 01/05/18 15:45 Gram Stain - Preliminary Leg - Right Wound Culture - Preliminary 01/05/18 15:45 Blood Culture - Preliminary Blood No Growth after 24 hours Assessment and Plan Plan: 1. Abscess right thigh patient is currently on vancomycin and Zosyn. Consult with Dr. Lerner in Dr. Jose. Bedside debridement. Wound culture and blood culture in progress. CAT scan of the right thigh. 2. History of alcoholic liver disease with portal hypertension and previous episodes of acute GI bleed with acute blood loss anemia resulting in multiple hospitalizations for GI bleeding from esophageal varices status post banding. Continue ferrous sulfate, magnesium oxide, multivitamin, thiamine, . 3. Chronic thrombocytopenia secondary to chronic EtOH related bone marrow damage and portal hypertension causing splenic sequestration. 4. Spinal stenosis with peripheral neuropathy. 4. History of pancreatitis. 5. Tobacco use and dependence. Nicotine patch. 6. Hypothyroidism. Continue levothyroxine 25 g daily. 7. GI prophylaxis and history of nonsteroidal anti-inflammatory gastropathy. Continue Carafate, Protonix 8. Recurrent depression. Continue Prozac 20 mg daily. 9. DVT prophylaxis. No heparin due to thrombocytopenia. SCDs and ANDREEA hose and early ambulation. Discharge plan: Home Impression and plan of care have been directed as dictated by the signing physician. Giovana Kathleen nurse practitioner acting as scribe for signing physician.
[2018-01-07] MEDS: HYDROmorphone 2 MG TAB PO PRN ×2 (15:26→18:16)
--- NOTE | 2018-01-07 17:28 | P.OP ---
Date of Procedure: 01/07/18 Preoperative Diagnosis: right thigh abscess Postoperative Diagnosis: right thigh abscess Procedure(s) Performed: debridement of right thigh Anesthesia: local Surgeon: Vinnie Jose Estimated Blood Loss (ml): 3 Pathology: none sent Condition: stable Disposition: PACU Description of Procedure: the patient's right thigh was prepped and draped in the usual sterile fashion. The area of the wound was anesthetized with 1% local Xylocaine. There was some necrotic skin and subcutaneous tissue in the wound. This was debrided sharply with a 15 blade scalpel. The debridement of skin and fat measured approximately 3 x 1 cm the wound was then packed with wet to dry dressing. Patient thtolerated the procedure well
[2018-01-07] MEDS: MORPHINE ORAL SOLN 10 MG/5 ML CUP PO PRN (19:51)
[2018-01-08] MEDS: HYDROmorphone 2 MG TAB PO PRN ×7 (00:37→21:45)
[2018-01-08] MEDS: PIPERACILLIN-TAZOBACTAM 3.375 GM in SODIUM CHLORIDE 0.9% 100 ML IVPB SCH ×4 (00:38→23:36)
[2018-01-08] MEDS: VANCOMYCIN 1,250 MG in SODIUM CHLORIDE 0.9% 250 ML IVPB SCH ×3 (05:06→20:13)
[2018-01-08] MEDS: MORPHINE ORAL SOLN 10 MG/5 ML CUP PO PRN (05:24)
[2018-01-08] MEDS: LEVOTHYROXINE 25 MCG TAB PO SCH (06:25)
[2018-01-08] MEDS: PANTOPRAZOLE 40 MG TABLET PO SCH (08:01)
[2018-01-08] MEDS: SUCRALFATE 1 GM TAB PO SCH ×4 (08:03→21:47)
[2018-01-08] MEDS: NICOTINE 14MG/24HR PATCH TRANSDERM SCH (08:03)
[2018-01-08] MEDS: FLUoxetine HCL 20 MG CAP PO SCH (08:03)
[2018-01-08] MEDS: MAGNESIUM OXIDE 400 MG TAB PO SCH (08:03)
[2018-01-08] MEDS: FERROUS SULFATE 325 MG TAB PO SCH (08:03)
[2018-01-08 09:50] LABS: ALT 18 U/L (21-72); AST 42 U/L (17-59); Albumin 2.7 g/dL (3.5-5.0); Alkaline Phosphatase 87 U/L (38-126); Anion Gap 6 mmol/L; Blood Urea Nitrogen 8 mg/dL (9-20); Calcium 7.6 mg/dL (8.4-10.2); Carbon Dioxide 21 mmol/L (22-30); Chloride 111 mmol/L (98-107); Glucose 112 mg/dL (74-99); Potassium 3.9 mmol/L (3.5-5.1); Sodium 138 mmol/L (137-145)
[2018-01-08 09:57] LABS: Basophils % (A) 1 %; Eosinophils # (A) 0.1 k/uL (0-0.7); Eosinophils % (A) 2 %; HCT 37.4 % (39.0-53.0); HGB 12.4 gm/dL (13.0-17.5); Lymphocytes # (A) 0.6 k/uL (1.0-4.8); Lymphocytes % (A) 24 %; MCH 32.4 pg (25.0-35.0); MCHC 33.2 g/dL (31.0-37.0); MCV 97.6 fL (80.0-100.0); Macrocytosis Slight; Mean Platelet Volume 8.4; Monocytes # (A) 0.2 k/uL (0-1.0); Monocytes % (A) 6 %; Neutrophils # (A) 1.7 k/uL (1.3-7.7); Neutrophils % (A) 66 %; RBC 3.83 m/uL (4.30-5.90); RDW 15.9 % (11.5-15.5); WBC 2.6 k/uL (3.8-10.6)
[2018-01-08 10:04] LABS: Platelet Count 19 k/uL (150-450)
--- NOTE | 2018-01-08 11:03 | P.PN ---
<Celeste Pierson M - Last Filed: 01/08/18 15:20> Subjective Progress Note Date: 01/08/18 42-year-old male seen at the bedside. Postop done at the bedside debridement of the right thigh for right thigh abscess January 07. This morning the patient has developed significant amount of bleeding at the surgical site. Nursing reports that there is some bruising distal to the debridement area pressure dressing with pressure was applied for 10 minutes bleeding controlled dressing reapplied no further episodes of active bleeding patient's platelets are 19 on admission 35. Patient does have a history of chronic thrombocytopenia due to chronic alcoholism which is in remission pending Patients being followed by infectious disease wound culture pending blood culture no growth currently afebrile Objective - Vital Signs Vital signs: Vital Signs Temp 98.0 F 01/08/18 07:00 Pulse 70 01/08/18 07:00 Resp 16 01/08/18 07:00 BP 135/86 01/08/18 07:00 Pulse Ox 91 L 01/08/18 07:00 Intake & Output 01/07/18 01/08/18 01/08/18 18:59 06:59 18:59 Output Total 900 1100 Balance -900 -1100 Output: Urine 900 1100 Other: Voiding Method Urinal # Voids 0 # Bowel Movements 0 - Exam Physical exam 42-year-old male resting in bed appears no acute distress Lungs adequate air movement bilaterally on room air Heart S1-S2 audible regular Abdomen soft reports no nausea vomiting no frequent stooling nondistended nontender Extremities upper extremities unremarkable no pedal edema bilaterally dressing to the right anterior thigh dry with a pressure dressing in place - Labs CBC & Chem 7: 01/08/18 09:19 01/08/18 09:19 Labs: Abnormal Lab Results - Last 24 Hours (Table) 01/08/18 01/08/18 Range/Units 09:19 09:19 WBC 2.6 L (3.8-10.6) k/uL RBC 3.83 L (4.30-5.90) m/uL Hgb 12.4 L (13.0-17.5) gm/dL Hct 37.4 L (39.0-53.0) % RDW 15.9 H (11.5-15.5) % Plt Count 19 L* (150-450) k/uL Lymphocytes # 0.6 L (1.0-4.8) k/uL Chloride 111 H (98-107) mmol/L Carbon Dioxide 21 L (22-30) mmol/L BUN 8 L (9-20) mg/dL Glucose 112 H (74-99) mg/dL Calcium 7.6 L (8.4-10.2) mg/dL Total Bilirubin 3.0 H (0.2-1.3) mg/dL ALT 18 L (21-72) U/L Total Protein 6.0 L (6.3-8.2) g/dL Albumin 2.7 L (3.5-5.0) g/dL Microbiology - Last 24 Hours (Table) 01/05/18 15:45 Blood Culture - Preliminary Blood No Growth after 48 hours 01/05/18 15:45 Gram Stain - Final Leg - Right Wound Culture - Final Assessment and Plan Assessment: Impression Present on admission right anterior thigh abscess lesion 3 cm in diameter with surrounding erythema and edema no involvement of the groin draining foul odor no tenderness to the touch unclear etiology History of prior MRSA History alcohol liver cirrhosis with portal hypertension with prior GI bleeding Chronic Thrombocytopenia secondary to cirrhosis of the liver platelets 35 Right femur x-ray shows no evidence of an acute fracture or dislocation no suspicious destruction Excisional Debridement right thigh abscess January 07 Plan Continue management per the attending and consultants IV Zosyn and vancomycin as ordered Further recommendations pending clinical course Wound care per infectious disease follow-up on cultures Monitor platelets Progress note dictated for Dr. Bryant rounding on behalf of dr ryan The above impression and plan of care have been discussed and directed by signing physician. Celeste Pierson nurse practitioner acting as scribe for signing physician. <Jose Bryant - Last Filed: 01/08/18 18:10> Objective - Vital Signs Vital signs: Vital Signs Temp 97.6 F 01/08/18 17:44 Pulse 58 L 01/08/18 17:44 Resp 18 01/08/18 17:44 BP 126/70 01/08/18 17:44 Pulse Ox 90 L 01/08/18 16:40 Intake & Output 01/07/18 01/08/18 01/08/18 18:59 06:59 18:59 Intake Total 453 Output Total 900 1100 Balance -900 -1100 453 Intake: Blood Product 453 Platelet Pheresis Acda2 196 Unit [id number] Platelet Pheresis Acda2 257 Unit [id number] Output: Urine 900 1100 Other: Voiding Method Urinal Urinal # Voids 0 3 # Bowel Movements 0 0 - Labs CBC & Chem 7: 01/08/18 09:19 01/08/18 09:19 Labs: Abnormal Lab Results - Last 24 Hours (Table) 01/08/18 01/08/18 Range/Units 09:19 09:19 WBC 2.6 L (3.8-10.6) k/uL RBC 3.83 L (4.30-5.90) m/uL Hgb 12.4 L (13.0-17.5) gm/dL Hct 37.4 L (39.0-53.0) % RDW 15.9 H (11.5-15.5) % Plt Count 19 L* (150-450) k/uL Lymphocytes # 0.6 L (1.0-4.8) k/uL Chloride 111 H (98-107) mmol/L Carbon Dioxide 21 L (22-30) mmol/L BUN 8 L (9-20) mg/dL Glucose 112 H (74-99) mg/dL Calcium 7.6 L (8.4-10.2) mg/dL Total Bilirubin 3.0 H (0.2-1.3) mg/dL ALT 18 L (21-72) U/L Total Protein 6.0 L (6.3-8.2) g/dL Albumin 2.7 L (3.5-5.0) g/dL Microbiology - Last 24 Hours (Table) 01/05/18 15:45 Blood Culture - Preliminary Blood No Growth after 48 hours 01/05/18 15:45 Gram Stain - Final Leg - Right Wound Culture - Final Assessment and Plan Assessment: As above. Patient's platelet levels today down to 18. He was having bleeding apparently through the night and again this morning. Pressure dressing was in place when I evaluated the patient. When I removed the dressing there was no active bleeding seen. Once the inner dressing was removed a small amount of diffuse oozing present. Wound was redressed. Begin local care with Aquacel silver tomorrow after platelets transfused.
[2018-01-08] MEDS: SODIUM CHLORIDE 0.9% 1,000 ML IV SCH (11:17)
[2018-01-08] MEDS: MULTIVITAMINS, THERA 1 EACH TAB PO SCH (12:47)
[2018-01-08] MEDS: THIAMINE 100 MG TAB PO SCH ×2 (12:47→16:06)
--- NOTE | 2018-01-08 14:12 | P.PN ---
Subjective Progress Note Date: 01/08/18 This is a 40-year-old male patient of Dr. Sarmad Linn. He has history of alcohol liver cirrhosis with portal hypertension and previous GI bleeding, hypertension and gastritis, pancreatitis, spinal stenosis and peripheral neuropathy. He is also known to Dr. Smart from previous EGDs in the past. This was last performed in 01/16/2017 with small distal esophageal varices. He was admitted for acute GI bleed in Jan 2016, Mar 2016 and Mar 2017. Patient states that he noticed a bump on the lateral side of his right leg last week and then on Thursday and broke open and started draining pus and blood. He denies having any injury, scratch to the area. He denies any history of diabetes. No history of MRSA. He did not see his PCP. He does state that in the summertime he gets lesions on his inside of his thighs and the end up popping and going away on their own. Patient denies any recent alcohol intake. He states he has been heavy alcohol intake in the past up to a pint per day for 7 years but now only drinks an occasional beer. He presented to [facility] emergency center. He has been afebrile, normal white count, hemoglobin 13.2, platelet count 35, creatinine 0.75. Initial lactic acid 2.3 and repeat 1.5. Total bilirubin 2.4. AST, ALT and alk phos within normal limits. Albumin 3.0. Wound culture and blood culture have been obtained. Patient was started on vancomycin and Zosyn and admitted to the MedSur floor and consult requested Dr. Lerner, infectious disease, and Dr. Jose, general surgery. 01/07: Consults with Drs. Jose and Yann are appreciated. Patient is continued on IV Zosyn and vancomycin. Wound culture in progress. Patient states that Dr. Jose is planning on bedside debridement this morning. We will order CAT scan of the right thigh. 01/08: Patient underwent debridement of necrotic skin and subcutaneous tissue done yesterday by Dr. Jose. Wound cultures been finalized with no growth after 48 hours and blood cultures no growth after 48 hours. Patient has been afebrile, pulse ox 91% on room air. Hip CAT scan showed superficial wound along the anterior lateral right thigh. Underlying abscess not identified. Phlegmon not entirely excluded. Note there is a large vessel running just deep to the structure. The area measures 1.5 x 2.5 cm. Patient has had some minor bleeding since surgery and had dressing change 3 times during the night but bleeding has significantly increased this morning despite use of pressure dressing. WBC is 2.6, hemoglobin 12.4, platelet count 19. Transfusion of 2 units of platelets ordered but not available in-house and transfusion will be delayed. General surgery is aware of bleeding and will be seeing the patient shortly. At this point, patient's vital signs are stable. Consult placed with hematology. Review Of Systems: Constitutional: No fever, no chills, no night sweats. No weight change. No weakness, fatigue or lethargy. No daytime sleepiness. EENT: No headache. No blurred vision or double vision, no loss of vision. No loss of Hearing, no ringing in the ears, no dizziness. No nasal drainage or congestion. No epistaxis. No sore throat. Lungs: No shortness of breath, cough, no sputum production. No wheezing. Cardiovascular: No chest pain, no lower extremity edema. No palpitations. No paroxysmal nocturnal dyspnea. No orthopnea. No lightheadedness or dizziness. No syncopal episodes. Abdominal: No abdominal pain. No nausea, vomiting. No diarrhea. No constipation. No bloody or tarry stools.. No loss of appetite. Genitourinary: No dysuria, increased frequency, urgency. No urinary retention. Musculoskeletal: Positive right thigh pain. No muscle weakness, no gait dysfunction, no frequent falls. No back pain. No neck pain. Integumentary: + wounds, + drainage, + bleeding. No rash or pruritus. No unusual bruising. No change in hair or nails. Neurologic: No aphasia. No facial droop. No change in mentation. No head injury. No headache. No paralysis. No paresthesia. Psychiatric: No depression. No anxiety. No mood swings. Endocrine: No abnormal blood sugars. No weight change. Objective - Vital Signs Vital signs: Vital Signs Temp 98.0 F 01/08/18 07:00 Pulse 70 01/08/18 07:00 Resp 16 01/08/18 07:00 BP 135/86 01/08/18 07:00 Pulse Ox 91 L 01/08/18 07:00 Intake & Output 01/07/18 01/08/18 01/08/18 18:59 06:59 18:59 Output Total 900 1100 Balance -900 -1100 Output: Urine 900 1100 Other: Voiding Method Urinal # Voids 0 # Bowel Movements 0 - Exam General appearance: average body habitus, cooperative, severe distress - EENT Eyes: EOMI, PERRLA, no photophobia, poor dentition, no ptosis, scleral icterus ENT: hearing grossly normal, normal oropharynx Ears: bilateral: normal - Neck Neck: lymphadenopathy Carotids: bilateral: upstroke normal - Respiratory Respiratory: bilateral: CTA, negative: diminished, dullness, rales, rhonchi, wheezing - Cardiovascular Rhythm: regular Heart sounds: normal: S1, S2 Abnormal Heart Sounds: no systolic murmur, no diastolic murmur, no rub, no click - Gastrointestinal General gastrointestinal: decreased bowel sounds, distended, soft, tenderness Localized gastrointestinal: no tenderness, epigastric periumbilical, no guarding : diffuse - Integumentary Integumentary: no cyanotic,no ulcer. - Neurologic Neurologic: CNII-XII intact - Musculoskeletal Musculoskeletal: generalized weakness, large open wound to the right anterior/ lateral thigh area with significant bleeding despite pressure dressing. - Psychiatric Psychiatric: A&O x's 3, appropriate affect - Labs CBC & Chem 7: 01/08/18 09:19 01/08/18 09:19 Labs: Abnormal Lab Results - Last 24 Hours (Table) 01/07/18 Range/Units 08:11 Sodium 136 L (137-145) mmol/L Chloride 109 H (98-107) mmol/L BUN 7 L (9-20) mg/dL Glucose 119 H (74-99) mg/dL Calcium 7.6 L (8.4-10.2) mg/dL Microbiology - Last 24 Hours (Table) 01/05/18 15:45 Blood Culture - Preliminary Blood No Growth after 48 hours 01/05/18 15:45 Gram Stain - Final Leg - Right Wound Culture - Final Assessment and Plan Plan: 1. Abscess right thigh status post debridement. Hip CAT scan as above. He is currently on vancomycin and Zosyn. Consult with Dr. Lerner and Dr. Jose. Wound culture and blood culture finalized with no growth. 2. Bleeding from right thigh wound. Platelet transfusion ordered and consult with hematology 3. History of alcoholic liver disease with portal hypertension and previous episodes of acute GI bleed with acute blood loss anemia resulting in multiple hospitalizations for GI bleeding from esophageal varices status post banding. Continue ferrous sulfate, magnesium oxide, multivitamin, thiamine, . 4. Chronic thrombocytopenia secondary to chronic EtOH related bone marrow damage and portal hypertension causing splenic sequestration. Platelet transfusion ordered and consult with hematology 5. Spinal stenosis with peripheral neuropathy. 6. History of pancreatitis. 7. Tobacco use and dependence. Nicotine patch. 8. Hypothyroidism. Continue levothyroxine 25 g daily. 9. GI prophylaxis and history of nonsteroidal anti-inflammatory gastropathy. Continue Carafate, Protonix 10. Recurrent depression. Continue Prozac 20 mg daily. 11. DVT prophylaxis. No heparin due to thrombocytopenia. SCDs and ANDREEA hose and early ambulation. Discharge plan: Home Impression and plan of care have been directed as dictated by the signing physician. Giovana Kathleen nurse practitioner acting as scribe for signing physician.
--- NOTE | 2018-01-08 16:52 | P.CONS ---
History of Present Illness - Reason for Consult Consult date: 01/08/18 Pancytopenia Requesting physician: Giovana Kathleen - Chief Complaint Cellulitis thigh abscess - History of Present Illness Mr Arriaga is a pleasant WM, initially seen in consult at [facility] on 02/03/16. He had presented with n/v/blood in th vomitus. His WBC was 1.8, plt 2, and Hgb 7.1. He has a longstading h/o of heavy ETOH use and low plt as a result. He had quit in 2009, but had started drinking again, just prior to admission. He was treated aggressively with blood and plt transfusions, and other supportive measures. His Hgb did stabilise, and WBC and plt count improved with cessation of bleeding. EGD revealed UGI varices. His clinical presentation was felt to be c/w ETOH related marrow damage, splenic sequestration, marrow suppression due to liver disease, with additional marrow stress due to bleeding. He was seen for his 1st OV in 07/15, after referral by his primary. He denied any ETOH use since 02/14. He had a repeat EGD in 05/16, with similiar findings, and no active bleeding. He was to have a dental implant procedure later in 07/16. However that has been on hold due to fluctuating plt counts. He presents now to [facility], His WBC count 2.3, Platlets are 19. Review of Systems A 14 point review of systems assessed and completed and all negative except HPI Past Medical History Past Medical History: GERD/Reflux, GI Bleed, Hypertension, Liver Disease, Thyroid Disorder Additional Past Medical History / Comment(s): Liver cirrhosis, portal htn, ETOH abuse, esophageal varicies, upper GI bleed, chronic thrombocytopenia, coagulopathy, pancytopenia, ascities, spinal stenosis: back/leg and feet pain, DDD, chronic back pain, neuropathy bilateral legs/feet, falls, bronchitis, past L rib fractures after fall off ladder,03-05-17 fall w/ head injury. 2010 Guillian Irene, chronic pancreatitis History of Any Multi-Drug Resistant Organisms: None Reported Past Surgical History: Appendectomy, Joint Replacement Additional Past Surgical History / Comment(s): EGDs paracentesis, back injections, R thumb reattachment, circumcism. Past Anesthesia/Blood Transfusion Reactions: No Reported Reaction Additional Past Anesthesia/Blood Transfusion Reaction / Comm: Pt has received blood without reaction. Smoking Status: Current every day smoker Additional Past Alcohol Use History / Comment(s): Patient is a smoker of a pack per day for 27 years. He denies any marijuana or street drug use. He does have history of heavy alcohol use with drinking up to a pint per day for 7 years but he currently is only drinking an occasional beer. He is on disability. He is currently living with his mother. He does have a dog in the home exposure to his daughter's cat. He uses a cane for ambulation. - Past Family History Father Family Medical History: No Reported History Additional Family Medical History / Comment(s): Pt does not know his father's medical hx. Mother Family Medical History: No Reported History Additional Family Medical History / Comment(s): Mother is healthy. Medications and Allergies Home Medications Medication Instructions Recorded Confirmed Type Vitamin B Complex 1 cap PO DAILY 03/04/16 01/05/18 History Levothyroxine Sodium [Synthroid] 25 mcg PO DAILY 05/07/16 01/05/18 History Ascorbic Acid [Vitamin C] 500 mg PO DAILY 01/02/17 01/05/18 History Pantoprazole Sodium [Protonix] 20 mg PO BID 01/02/17 01/05/18 History Ferrous Sulfate [Iron (65 MG 325 mg PO DAILY 01/15/17 01/05/18 History Elemental)] Sucralfate [Carafate] 1 gm PO QID 01/15/17 01/05/18 History Magnesium 200 mg PO DAILY 03/05/17 01/05/18 History Multivitamin [Men's Multi-Vitamin] 1 tab PO DAILY 03/05/17 01/05/18 History Calcium Carb-Vit D 500Mg-200Un 1 each PO TID-W/MEALS tab 03/11/17 01/05/18 Rx [Oscal 500+D] FLUoxetine HCL [PROzac] 20 mg PO DAILY #30 cap 03/11/17 01/05/18 Rx Nicotine 21Mg/24Hr Patch [Habitrol] 1 patch TRANSDERM DAILY #30 patch 03/11/17 01/05/18 Rx Thiamine [Vitamin B-1] 100 mg PO BID@1200,1700 tab 03/11/17 01/05/18 Rx Allergies Allergy/AdvReac Type Severity Reaction Status Date / Time No Known Allergies Allergy Verified 01/05/18 15:47 Physical Exam Vitals: Vital Signs Temp Pulse Pulse Pulse Resp BP BP 01/08/18 14:26 97.8 F 66 16 112/62 01/08/18 14:24 97.8 F 66 16 112/62 01/08/18 08:00 16 01/08/18 07:00 98.0 F 70 16 135/86 01/07/18 23:00 98.6 F 72 17 114/63 01/07/18 22:26 64 01/07/18 20:14 71 99/66 Pulse Ox 01/08/18 14:26 95 01/08/18 14:24 01/08/18 08:00 01/08/18 07:00 91 L 01/07/18 23:00 95 01/07/18 22:26 01/07/18 20:14 Intake and Output 01/07/18 01/08/18 01/08/18 22:59 06:59 14:59 Intake Total 0 Output Total 300 800 Balance -300 -800 0 Intake: Blood Product 0 Platelet Pheresis Acda2 0 Unit [id number] Output: Urine 300 800 Other: Voiding Method Urinal Urinal # Voids 1 0 3 # Bowel Movements 0 0 0 - Constitutional General appearance: cooperative, no acute distress - EENT Eyes: EOMI, poor dentition ENT: hearing grossly normal, normal oropharynx - Neck No lymphadenopathy Neck: normal ROM - Respiratory Respiratory: bilateral: wheezing (no increased effort, expiratory wheezes) - Cardiovascular Rhythm: regular Heart sounds: normal: S1, S2 - Gastrointestinal General gastrointestinal: organomegaly, soft, tenderness - Integumentary Abscess with surrounding erythema. Integumentary: pale, rash - Musculoskeletal Musculoskeletal: generalized weakness, strength equal bilaterally - Psychiatric Psychiatric: A&O x's 3, appropriate affect, intact judgment & insight Results CBC & Chem 7: 01/08/18 09:19 01/08/18 09:19 Labs: Abnormal Lab Results - Last 24 Hours (Table) 01/08/18 01/08/18 Range/Units 09:19 09:19 WBC 2.6 L (3.8-10.6) k/uL RBC 3.83 L (4.30-5.90) m/uL Hgb 12.4 L (13.0-17.5) gm/dL Hct 37.4 L (39.0-53.0) % RDW 15.9 H (11.5-15.5) % Plt Count 19 L* (150-450) k/uL Lymphocytes # 0.6 L (1.0-4.8) k/uL Chloride 111 H (98-107) mmol/L Carbon Dioxide 21 L (22-30) mmol/L BUN 8 L (9-20) mg/dL Glucose 112 H (74-99) mg/dL Calcium 7.6 L (8.4-10.2) mg/dL Total Bilirubin 3.0 H (0.2-1.3) mg/dL ALT 18 L (21-72) U/L Total Protein 6.0 L (6.3-8.2) g/dL Albumin 2.7 L (3.5-5.0) g/dL Microbiology - Last 24 Hours (Table) 01/05/18 15:45 Blood Culture - Preliminary Blood No Growth after 48 hours 01/05/18 15:45 Gram Stain - Final Leg - Right Wound Culture - Final Assessment and Plan Plan: Assessment and Plan (1) Pancytopenia (2)Cellulitis, Abscess to Skin Narrative/Plan: - This is a chronic problem for this patient, and is multifactorial in etiology. - He has chronic underlying EtOH-related bone marrow damage. - his is exacerbated by him continuing to drink off and on. Even though he denies and then admits to reent use. - In addition he has chronic liver disease causing depressed platelet production in addition. He also has portal hypertension causing splenic sequestration. - In this situation, counts tend to drop further from baseline with any additional stress. - Will Check Coags, if concern for sepsis, check fibrinogen - If planning surgical intervetion, recommend platlet transfusion during intervention (i.e. I and D for abscess) - Transfuse if signs of bleeding for plt less than 40 Physician Attestation: I have completed the full history and physical of this patient and agree with above dictation, dictated as a scribe.
[2018-01-08 18:16] LABS: INR 1.6 (<1.2); Partial Thromboplastin Time 25.7 sec (22.0-30.0); Prothrombin Time 14.5 sec (9.0-12.0)
[2018-01-09] MEDS: HYDROmorphone 2 MG TAB PO PRN ×7 (01:46→20:46)
[2018-01-09] MEDS: VANCOMYCIN 1,250 MG in SODIUM CHLORIDE 0.9% 250 ML IVPB SCH ×2 (04:06→11:20)
[2018-01-09] MEDS: SODIUM CHLORIDE 0.9% 1,000 ML IV SCH (05:32)
[2018-01-09] MEDS: LEVOTHYROXINE 25 MCG TAB PO SCH (06:12)
[2018-01-09 07:58] LABS: Anisocytosis Slight; Basophils % (A) 1 %; Eosinophils # (A) 0.1 k/uL (0-0.7); Eosinophils % (A) 3 %; HCT 33.3 % (39.0-53.0); Lymphocytes # (A) 0.5 k/uL (1.0-4.8); Lymphocytes % (A) 22 %; MCHC 33.1 g/dL (31.0-37.0); MCV 96.6 fL (80.0-100.0); Mean Platelet Volume 7.6; Monocytes # (A) 0.2 k/uL (0-1.0); Monocytes % (A) 9 %; Neutrophils # (A) 1.4 k/uL (1.3-7.7); Neutrophils % (A) 64 %; RBC 3.44 m/uL (4.30-5.90); WBC 2.2 k/uL (3.8-10.6)
[2018-01-09 08:05] LABS: Platelet Count 32 k/uL (150-450)
[2018-01-09 08:12] LABS: ALT 26 U/L (21-72); AST 40 U/L (17-59); Albumin 2.7 g/dL (3.5-5.0); Alkaline Phosphatase 78 U/L (38-126); Anion Gap 5 mmol/L; Blood Urea Nitrogen 9 mg/dL (9-20); Carbon Dioxide 22 mmol/L (22-30); Chloride 113 mmol/L (98-107); Glucose 101 mg/dL (74-99); Potassium 3.7 mmol/L (3.5-5.1); Sodium 140 mmol/L (137-145); Total Protein 5.9 g/dL (6.3-8.2)
[2018-01-09] MEDS: PIPERACILLIN-TAZOBACTAM 3.375 GM in SODIUM CHLORIDE 0.9% 100 ML IVPB SCH ×2 (08:32→15:56)
[2018-01-09] MEDS: PANTOPRAZOLE 40 MG TABLET PO SCH (08:33)
[2018-01-09] MEDS: SUCRALFATE 1 GM TAB PO SCH ×4 (08:33→21:15)
[2018-01-09] MEDS: FERROUS SULFATE 325 MG TAB PO SCH (08:33)
[2018-01-09] MEDS: MULTIVITAMINS, THERA 1 EACH TAB PO SCH (08:33)
[2018-01-09] MEDS: FLUoxetine HCL 20 MG CAP PO SCH (08:34)
[2018-01-09] MEDS: NICOTINE 14MG/24HR PATCH TRANSDERM SCH (08:34)
[2018-01-09] MEDS: MAGNESIUM OXIDE 400 MG TAB PO SCH (08:34)
[2018-01-09] MEDS: THIAMINE 100 MG TAB PO SCH ×2 (08:34→17:35)
[2018-01-09] MEDS ORDERED: VANCOMYCIN TROUGH DUE 1 EACH MISC MISCELLANE ONE (11:00)
[2018-01-09] MEDS ORDERED: VANCOMYCIN IV PER PHARMACY 1 EACH MISC MISCELLANE PRN (12:16)
--- NOTE | 2018-01-09 13:04 | P.PN ---
Subjective Progress Note Date: 01/09/18 CHIEF COMPLAINT: HISTORY OF PRESENT ILLNESS: The patient is a 42-year-old male status post debridement of right thigh abscess 2 days ago at bedside. He reports moderate pain from the debridement. His pain recurs after dressing changes. He had moderate blood loss from his right thigh abscess debridement. He has history of low platelets. He reports troubles with antibiotics which had to be discontinued. PHYSICAL EXAM: VITAL SIGNS: Currently stable. GENERAL: Well-developed in no acute distress. HEENT: No sclera icterus. Extraocular movements grossly intact. Moist buccal mucosa. Head is atraumatic, normocephalic. Hears conversational speech. No nasal drainage. NECK: Supple without lymphadenopathy. CHEST: Non-labored respirations and equal bilateral excursions. CARDIOVASCULAR: Regular rate with regular rhythm. Palpable 2+ radial pulses. ABDOMEN: Soft. Nondistended. No peritonitis. Minimal diffuse tenderness MUSCULOSKELETAL: Dressing intact. No clubbing cyanosis. NEUROLOGIC: No focal or lateralizing signs. Cranial nerves II through XII grossly intact. PSYCH: Appropriate affect. Alert and oriented to person, place and time. SKIN: Well perfused. Good skin turgor. LABS: Reviewed ASSESSMENT: 1. Right thigh abscess. 2. Thrombocytopenia PLAN: 1. For optimal wound healing, Augmentin nutrition advised. 2. Antibiotic management per primary team. 3. Recommend pressure dressing on at least 24 hours to minimize bleeding. Objective - Vital Signs Vital signs: Vital Signs Temp 97.8 F 01/09/18 07:25 Pulse 54 L 01/09/18 07:25 Resp 16 01/09/18 07:25 BP 119/79 01/09/18 07:25 Pulse Ox 96 01/09/18 07:25 Intake & Output 01/08/18 01/09/18 01/09/18 18:59 06:59 18:59 Intake Total 453 Output Total 390 Balance 63 Intake: Blood Product 453 Platelet Pheresis Acda2 196 Unit [id number] Platelet Pheresis Acda2 257 Unit [id number] Output: Urine 390 Other: Voiding Method Urinal # Voids 3 2 # Bowel Movements 0 - Labs CBC & Chem 7: 01/09/18 07:12 01/09/18 07:12 Labs: Abnormal Lab Results - Last 24 Hours (Table) 01/08/18 01/09/18 01/09/18 Range/Units 17:39 07:12 07:12 WBC 2.2 L (3.8-10.6) k/uL RBC 3.44 L (4.30-5.90) m/uL Hgb 11.0 L (13.0-17.5) gm/dL Hct 33.3 L (39.0-53.0) % RDW 16.0 H (11.5-15.5) % Plt Count 32 L D (150-450) k/uL Lymphocytes # 0.5 L (1.0-4.8) k/uL PT 14.5 H (9.0-12.0) sec INR 1.6 H (<1.2) Chloride 113 H (98-107) mmol/L Glucose 101 H (74-99) mg/dL Calcium 8.0 L (8.4-10.2) mg/dL Total Bilirubin 3.0 H (0.2-1.3) mg/dL Total Protein 5.9 L (6.3-8.2) g/dL Albumin 2.7 L (3.5-5.0) g/dL Vancomycin Trough ug/mL 01/09/18 Range/Units 10:43 WBC (3.8-10.6) k/uL RBC (4.30-5.90) m/uL Hgb (13.0-17.5) gm/dL Hct (39.0-53.0) % RDW (11.5-15.5) % Plt Count (150-450) k/uL Lymphocytes # (1.0-4.8) k/uL PT (9.0-12.0) sec INR (<1.2) Chloride (98-107) mmol/L Glucose (74-99) mg/dL Calcium (8.4-10.2) mg/dL Total Bilirubin (0.2-1.3) mg/dL Total Protein (6.3-8.2) g/dL Albumin (3.5-5.0) g/dL Vancomycin Trough 35.6 H* ug/mL Microbiology - Last 24 Hours (Table) 01/05/18 15:45 Blood Culture - Preliminary Blood No Growth after 72 hours Assessment and Plan (1) Thrombocytopenia Current Visit: Yes Status: Acute Code(s): D69.6 - THROMBOCYTOPENIA, UNSPECIFIED SNOMED Code(s): 918628026 (2) Abscess of right thigh Current Visit: Yes Status: Acute Code(s): L02.415 - CUTANEOUS ABSCESS OF RIGHT LOWER LIMB SNOMED Code(s): 9696599
--- NOTE | 2018-01-09 17:04 | P.PN ---
Subjective Progress Note Date: 01/09/18 This is a 40-year-old male patient of Dr. Sarmad Linn. He has history of alcohol liver cirrhosis with portal hypertension and previous GI bleeding, hypertension and gastritis, pancreatitis, spinal stenosis and peripheral neuropathy. He is also known to Dr. Smart from previous EGDs in the past. This was last performed in 01/16/2017 with small distal esophageal varices. He was admitted for acute GI bleed in Jan 2016, Mar 2016 and Mar 2017. Patient states that he noticed a bump on the lateral side of his right leg last week and then on Thursday and broke open and started draining pus and blood. He denies having any injury, scratch to the area. He denies any history of diabetes. No history of MRSA. He did not see his PCP. He does state that in the summertime he gets lesions on his inside of his thighs and the end up popping and going away on their own. Patient denies any recent alcohol intake. He states he has been heavy alcohol intake in the past up to a pint per day for 7 years but now only drinks an occasional beer. He presented to [facility] emergency center. He has been afebrile, normal white count, hemoglobin 13.2, platelet count 35, creatinine 0.75. Initial lactic acid 2.3 and repeat 1.5. Total bilirubin 2.4. AST, ALT and alk phos within normal limits. Albumin 3.0. Wound culture and blood culture have been obtained. Patient was started on vancomycin and Zosyn and admitted to the [facility] floor and consult requested Dr. Lerner, infectious disease, and Dr. Jose, general surgery. 01/07: Consults with Drs. Jose and Yann are appreciated. Patient is continued on IV Zosyn and vancomycin. Wound culture in progress. Patient states that Dr. Jose is planning on bedside debridement this morning. We will order CAT scan of the right thigh. 01/08: Patient underwent debridement of necrotic skin and subcutaneous tissue done yesterday by Dr. Jose. Wound cultures been finalized with no growth after 48 hours and blood cultures no growth after 48 hours. Patient has been afebrile, pulse ox 91% on room air. Hip CAT scan showed superficial wound along the anterior lateral right thigh. Underlying abscess not identified. Phlegmon not entirely excluded. Note there is a large vessel running just deep to the structure. The area measures 1.5 x 2.5 cm. Patient has had some minor bleeding since surgery and had dressing change 3 times during the night but bleeding has significantly increased this morning despite use of pressure dressing. WBC is 2.6, hemoglobin 12.4, platelet count 19. Transfusion of 2 units of platelets ordered but not available in-house and transfusion will be delayed. General surgery is aware of bleeding and will be seeing the patient shortly. At this point, patient's vital signs are stable. Consult placed with hematology. 01/09: Patient is laying down in bed he continues to have some pain in the right thigh, he denies any chest pain, shortness breath, he has no nausea or vomiting and has poor appetite, he continues to have a dry skin. Review Of Systems: Constitutional: No fever, no chills, no night sweats. No weight change. No weakness, fatigue or lethargy. No daytime sleepiness. EENT: No headache. No blurred vision or double vision, no loss of vision. No loss of Hearing, no ringing in the ears, no dizziness. No nasal drainage or congestion. No epistaxis. No sore throat. Lungs: No shortness of breath, cough, no sputum production. No wheezing. Cardiovascular: No chest pain, no lower extremity edema. No palpitations. No paroxysmal nocturnal dyspnea. No orthopnea. No lightheadedness or dizziness. No syncopal episodes. Abdominal: No abdominal pain. No nausea, vomiting. No diarrhea. No constipation. No bloody or tarry stools.. No loss of appetite. Genitourinary: No dysuria, increased frequency, urgency. No urinary retention. Musculoskeletal: Positive right thigh pain. No muscle weakness, no gait dysfunction, no frequent falls. No back pain. No neck pain. Integumentary: + wounds, + drainage, + bleeding. No rash or pruritus. No unusual bruising. No change in hair or nails. Neurologic: No aphasia. No facial droop. No change in mentation. No head injury. No headache. No paralysis. No paresthesia. Psychiatric: No depression. No anxiety. No mood swings. Endocrine: No abnormal blood sugars. No weight change. Objective - Vital Signs Vital signs: Vital Signs Temp 97.8 F 01/09/18 07:25 Pulse 54 L 01/09/18 07:25 Resp 16 01/09/18 07:25 BP 119/79 01/09/18 07:25 Pulse Ox 96 01/09/18 07:25 Intake & Output 01/08/18 01/09/18 01/09/18 18:59 06:59 18:59 Intake Total 453 Output Total 390 Balance 63 Intake: Blood Product 453 Platelet Pheresis Acda2 196 Unit [id number] Platelet Pheresis Acda2 257 Unit [id number] Output: Urine 390 Other: Voiding Method Urinal # Voids 3 2 # Bowel Movements 0 - Exam - Exam General appearance: average body habitus, cooperative, severe distress - EENT Eyes: EOMI, PERRLA, no photophobia, poor dentition, no ptosis, scleral icterus ENT: hearing grossly normal, normal oropharynx Ears: bilateral: normal - Neck Neck: lymphadenopathy Carotids: bilateral: upstroke normal - Respiratory Respiratory: bilateral: CTA, negative: diminished, dullness, rales, rhonchi, wheezing - Cardiovascular Rhythm: regular Heart sounds: normal: S1, S2 Abnormal Heart Sounds: no systolic murmur, no diastolic murmur, no rub, no click - Gastrointestinal General gastrointestinal: decreased bowel sounds, distended, soft, tenderness Localized gastrointestinal: no tenderness, epigastric periumbilical, no guarding : diffuse - Integumentary Integumentary: no cyanotic,no ulcer. - Neurologic Neurologic: CNII-XII intact - Musculoskeletal Musculoskeletal: generalized weakness, large open wound to the right anterior/ lateral thigh area with significant bleeding despite pressure dressing. - Psychiatric Psychiatric: A&O x's 3, appropriate affect - Labs CBC & Chem 7: 01/09/18 07:12 01/09/18 07:12 Labs: Abnormal Lab Results - Last 24 Hours (Table) 01/08/18 01/09/18 01/09/18 Range/Units 17:39 07:12 07:12 WBC 2.2 L (3.8-10.6) k/uL RBC 3.44 L (4.30-5.90) m/uL Hgb 11.0 L (13.0-17.5) gm/dL Hct 33.3 L (39.0-53.0) % RDW 16.0 H (11.5-15.5) % Plt Count 32 L D (150-450) k/uL Lymphocytes # 0.5 L (1.0-4.8) k/uL PT 14.5 H (9.0-12.0) sec INR 1.6 H (<1.2) Chloride 113 H (98-107) mmol/L Glucose 101 H (74-99) mg/dL Calcium 8.0 L (8.4-10.2) mg/dL Total Bilirubin 3.0 H (0.2-1.3) mg/dL Total Protein 5.9 L (6.3-8.2) g/dL Albumin 2.7 L (3.5-5.0) g/dL Vancomycin Trough ug/mL 01/09/18 Range/Units 10:43 WBC (3.8-10.6) k/uL RBC (4.30-5.90) m/uL Hgb (13.0-17.5) gm/dL Hct (39.0-53.0) % RDW (11.5-15.5) % Plt Count (150-450) k/uL Lymphocytes # (1.0-4.8) k/uL PT (9.0-12.0) sec INR (<1.2) Chloride (98-107) mmol/L Glucose (74-99) mg/dL Calcium (8.4-10.2) mg/dL Total Bilirubin (0.2-1.3) mg/dL Total Protein (6.3-8.2) g/dL Albumin (3.5-5.0) g/dL Vancomycin Trough 35.6 H* ug/mL Microbiology - Last 24 Hours (Table) 01/05/18 15:45 Blood Culture - Preliminary Blood No Growth after 72 hours Assessment and Plan Assessment: Assessment and Plan Plan: 1. Abscess right thigh status post debridement. Hip CAT scan as above. He is currently on vancomycin and Zosyn. Consult with Dr. Lerner and Dr. Jose. Wound culture and blood culture finalized with no growth. 2. Bleeding from right thigh wound. Platelet transfusion ordered and consult with hematology 3. History of alcoholic liver disease with portal hypertension and previous episodes of acute GI bleed with acute blood loss anemia resulting in multiple hospitalizations for GI bleeding from esophageal varices status post banding. Continue ferrous sulfate, magnesium oxide, multivitamin, thiamine, . 4. Chronic thrombocytopenia secondary to chronic EtOH related bone marrow damage and portal hypertension causing splenic sequestration. Platelet transfusion ordered and consult with hematology 5. Spinal stenosis with peripheral neuropathy. 6. History of pancreatitis. 7. Tobacco use and dependence. Nicotine patch. 8. Hypothyroidism. Continue levothyroxine 25 g daily. 9. GI prophylaxis and history of nonsteroidal anti-inflammatory gastropathy. Continue Carafate, Protonix 10. Recurrent depression. Continue Prozac 20 mg daily. 11. DVT prophylaxis. No heparin due to thrombocytopenia. SCDs and ANDREEA hose and early ambulation. Discharge plan: Home
[2018-01-09 22:40] VITALS: RESP 18
[2018-01-10] MEDS: PIPERACILLIN-TAZOBACTAM 3.375 GM in SODIUM CHLORIDE 0.9% 100 ML IVPB SCH ×3 (00:09→16:04)
[2018-01-10] MEDS: HYDROmorphone 2 MG TAB PO PRN ×9 (00:15→23:19)
[2018-01-10] MEDS: SODIUM CHLORIDE 0.9% 1,000 ML IV SCH ×2 (05:28→22:36)
[2018-01-10] MEDS: LEVOTHYROXINE 25 MCG TAB PO SCH (06:30)
[2018-01-10 07:42] LABS: Basophils % (A) 0 %; Eosinophils # (A) 0.1 k/uL (0-0.7); Eosinophils % (A) 3 %; HCT 35.6 % (39.0-53.0); HGB 11.5 gm/dL (13.0-17.5); Lymphocytes # (A) 0.5 k/uL (1.0-4.8); Lymphocytes % (A) 25 %; MCH 31.2 pg (25.0-35.0); MCHC 32.3 g/dL (31.0-37.0); MCV 96.4 fL (80.0-100.0); Mean Platelet Volume 8.5; Monocytes # (A) 0.1 k/uL (0-1.0); Monocytes % (A) 7 %; Neutrophils # (A) 1.2 k/uL (1.3-7.7); Neutrophils % (A) 62 %; RBC 3.69 m/uL (4.30-5.90); RDW 15.9 % (11.5-15.5)
[2018-01-10 07:46] LABS: Platelet Count 31 k/uL (150-450)
[2018-01-10] MEDS: SUCRALFATE 1 GM TAB PO SCH ×4 (07:46→22:34)
[2018-01-10] MEDS: PANTOPRAZOLE 40 MG TABLET PO SCH (07:46)
[2018-01-10] MEDS: FLUoxetine HCL 20 MG CAP PO SCH (07:46)
[2018-01-10] MEDS: THIAMINE 100 MG TAB PO SCH ×2 (07:46→16:05)
[2018-01-10] MEDS: NICOTINE 14MG/24HR PATCH TRANSDERM SCH (07:46)
[2018-01-10] MEDS: FERROUS SULFATE 325 MG TAB PO SCH (07:46)
[2018-01-10] MEDS: MULTIVITAMINS, THERA 1 EACH TAB PO SCH (07:46)
[2018-01-10] MEDS: MAGNESIUM OXIDE 400 MG TAB PO SCH (07:47)
[2018-01-10 07:53] LABS: ALT 23 U/L (21-72); AST 46 U/L (17-59); Albumin 2.9 g/dL (3.5-5.0); Alkaline Phosphatase 85 U/L (38-126); Anion Gap 6 mmol/L; Blood Urea Nitrogen 8 mg/dL (9-20); Calcium 8.2 mg/dL (8.4-10.2); Carbon Dioxide 25 mmol/L (22-30); Chloride 109 mmol/L (98-107); Glucose 91 mg/dL (74-99); Potassium 3.9 mmol/L (3.5-5.1); Sodium 140 mmol/L (137-145); Total Bilirubin 3.1 mg/dL (0.2-1.3); Total Protein 6.4 g/dL (6.3-8.2)
[2018-01-10 09:14] LABS: Vancomycin,Random 16.4 ug/mL
--- NOTE | 2018-01-10 10:24 | P.PN ---
Subjective Progress Note Date: 01/10/18 CHIEF COMPLAINT: HISTORY OF PRESENT ILLNESS: The patient is a 42-year-old male status post debridement of right thigh abscess 3 days ago at bedside. A pressure dressing had been placed secondary to his bleeding and thrombocytopenia. Antibiotics are being adjusted to cultures. Otherwise no new complaints. PHYSICAL EXAM: VITAL SIGNS: Currently stable. GENERAL: Well-developed in no acute distress. HEENT: No sclera icterus. Extraocular movements grossly intact. Moist buccal mucosa. Head is atraumatic, normocephalic. Hears conversational speech. No nasal drainage. NECK: Supple without lymphadenopathy. CHEST: Non-labored respirations and equal bilateral excursions. CARDIOVASCULAR: Regular rate with regular rhythm. Palpable 2+ radial pulses. ABDOMEN: Soft. Nondistended. No peritonitis. Minimal diffuse tenderness MUSCULOSKELETAL: Dressing intact. No clubbing cyanosis. NEUROLOGIC: No focal or lateralizing signs. Cranial nerves II through XII grossly intact. PSYCH: Appropriate affect. Alert and oriented to person, place and time. SKIN: Well perfused. Good skin turgor. LABS: Reviewed ASSESSMENT: 1. Right thigh abscess. 2. Thrombocytopenia PLAN: 1. Continue pressure dressing 2. Wound care management per wound care team and infectious disease 3. No additional surgical intervention at this time Objective - Vital Signs Vital signs: Vital Signs Temp 97.2 F L 01/10/18 06:10 Pulse 56 L 01/10/18 06:10 Resp 18 01/10/18 06:10 BP 131/86 01/10/18 06:10 Pulse Ox 95 01/10/18 06:10 Intake & Output 01/09/18 01/10/18 01/10/18 18:59 06:59 18:59 Intake Total 600 Output Total 1200 Balance 600 -1200 Intake: Oral 600 Output: Urine 1200 Other: # Voids 3 1 - Labs CBC & Chem 7: 01/10/18 07:03 01/10/18 07:03 Labs: Abnormal Lab Results - Last 24 Hours (Table) 01/09/18 01/10/18 01/10/18 Range/Units 10:43 07:03 07:03 WBC 2.0 L (3.8-10.6) k/uL RBC 3.69 L (4.30-5.90) m/uL Hgb 11.5 L (13.0-17.5) gm/dL Hct 35.6 L (39.0-53.0) % RDW 15.9 H (11.5-15.5) % Plt Count 31 L (150-450) k/uL Neutrophils # 1.2 L (1.3-7.7) k/uL Lymphocytes # 0.5 L (1.0-4.8) k/uL Chloride 109 H (98-107) mmol/L BUN 8 L (9-20) mg/dL Calcium 8.2 L (8.4-10.2) mg/dL Total Bilirubin 3.1 H (0.2-1.3) mg/dL Albumin 2.9 L (3.5-5.0) g/dL Vancomycin Trough 35.6 H* ug/mL Microbiology - Last 24 Hours (Table) 01/05/18 15:45 Blood Culture - Preliminary Blood No Growth after 96 hours Assessment and Plan (1) Thrombocytopenia Current Visit: Yes Status: Acute Code(s): D69.6 - THROMBOCYTOPENIA, UNSPECIFIED SNOMED Code(s): 637180147 (2) Abscess of right thigh Current Visit: Yes Status: Acute Code(s): L02.415 - CUTANEOUS ABSCESS OF RIGHT LOWER LIMB SNOMED Code(s): 0199643
--- NOTE | 2018-01-10 12:10 | P.PN ---
Subjective Progress Note Date: 01/10/18 This is a 40-year-old male patient of Dr. Sarmad Linn. He has history of alcohol liver cirrhosis with portal hypertension and previous GI bleeding, hypertension and gastritis, pancreatitis, spinal stenosis and peripheral neuropathy. He is also known to Dr. Smart from previous EGDs in the past. This was last performed in 01/16/2017 with small distal esophageal varices. He was admitted for acute GI bleed in Jan 2016, Mar 2016 and Mar 2017. Patient states that he noticed a bump on the lateral side of his right leg last week and then on Thursday and broke open and started draining pus and blood. He denies having any injury, scratch to the area. He denies any history of diabetes. No history of MRSA. He did not see his PCP. He does state that in the summertime he gets lesions on his inside of his thighs and the end up popping and going away on their own. Patient denies any recent alcohol intake. He states he has been heavy alcohol intake in the past up to a pint per day for 7 years but now only drinks an occasional beer. He presented to [facility] emergency center. He has been afebrile, normal white count, hemoglobin 13.2, platelet count 35, creatinine 0.75. Initial lactic acid 2.3 and repeat 1.5. Total bilirubin 2.4. AST, ALT and alk phos within normal limits. Albumin 3.0. Wound culture and blood culture have been obtained. Patient was started on vancomycin and Zosyn and admitted to the [facility] floor and consult requested Dr. Lerner, infectious disease, and Dr. Jose, general surgery. 01/07: Consults with Drs. Jose and Yann are appreciated. Patient is continued on IV Zosyn and vancomycin. Wound culture in progress. Patient states that Dr. Jose is planning on bedside debridement this morning. We will order CAT scan of the right thigh. 01/08: Patient underwent debridement of necrotic skin and subcutaneous tissue done yesterday by Dr. Jose. Wound cultures been finalized with no growth after 48 hours and blood cultures no growth after 48 hours. Patient has been afebrile, pulse ox 91% on room air. Hip CAT scan showed superficial wound along the anterior lateral right thigh. Underlying abscess not identified. Phlegmon not entirely excluded. Note there is a large vessel running just deep to the structure. The area measures 1.5 x 2.5 cm. Patient has had some minor bleeding since surgery and had dressing change 3 times during the night but bleeding has significantly increased this morning despite use of pressure dressing. WBC is 2.6, hemoglobin 12.4, platelet count 19. Transfusion of 2 units of platelets ordered but not available in-house and transfusion will be delayed. General surgery is aware of bleeding and will be seeing the patient shortly. At this point, patient's vital signs are stable. Consult placed with hematology. 01/09: Patient is laying down in bed he continues to have some pain in the right thigh, he denies any chest pain, shortness breath, he has no nausea or vomiting and has poor appetite, he continues to have a dry skin. 01/10: Patient is doing better he denies any chest pain or shortness breath, he continues to have significant dry skin, there is no oozing from the dressing on the right hip, this will be changed tomorrow morning keep the dressing on for today. Review Of Systems: Constitutional: No fever, no chills, no night sweats. No weight change. No weakness, fatigue or lethargy. No daytime sleepiness. EENT: No headache. No blurred vision or double vision, no loss of vision. No loss of Hearing, no ringing in the ears, no dizziness. No nasal drainage or congestion. No epistaxis. No sore throat. Lungs: No shortness of breath, cough, no sputum production. No wheezing. Cardiovascular: No chest pain, no lower extremity edema. No palpitations. No paroxysmal nocturnal dyspnea. No orthopnea. No lightheadedness or dizziness. No syncopal episodes. Abdominal: No abdominal pain. No nausea, vomiting. No diarrhea. No constipation. No bloody or tarry stools.. No loss of appetite. Genitourinary: No dysuria, increased frequency, urgency. No urinary retention. Musculoskeletal: Positive right thigh pain. No muscle weakness, no gait dysfunction, no frequent falls. No back pain. No neck pain. Integumentary: + wounds, + drainage, + bleeding. No rash or pruritus. No unusual bruising. No change in hair or nails. Neurologic: No aphasia. No facial droop. No change in mentation. No head injury. No headache. No paralysis. No paresthesia. Psychiatric: No depression. No anxiety. No mood swings. Endocrine: No abnormal blood sugars. No weight change. Objective - Vital Signs Vital signs: Vital Signs Temp 97.2 F L 01/10/18 06:10 Pulse 56 L 01/10/18 06:10 Resp 18 01/10/18 06:10 BP 131/86 01/10/18 06:10 Pulse Ox 95 01/10/18 06:10 Intake & Output 01/09/18 01/10/18 01/10/18 18:59 06:59 18:59 Intake Total 600 Output Total 1200 Balance 600 -1200 Intake: Oral 600 Output: Urine 1200 Other: # Voids 3 1 - Exam - Exam General appearance: average body habitus, cooperative, severe distress - EENT Eyes: EOMI, PERRLA, no photophobia, poor dentition, no ptosis, scleral icterus ENT: hearing grossly normal, normal oropharynx Ears: bilateral: normal - Neck Neck: lymphadenopathy Carotids: bilateral: upstroke normal - Respiratory Respiratory: bilateral: CTA, negative: diminished, dullness, rales, rhonchi, wheezing - Cardiovascular Rhythm: regular Heart sounds: normal: S1, S2 Abnormal Heart Sounds: no systolic murmur, no diastolic murmur, no rub, no click - Gastrointestinal General gastrointestinal: decreased bowel sounds, distended, soft, tenderness Localized gastrointestinal: no tenderness, epigastric periumbilical, no guarding : diffuse - Integumentary Integumentary: no cyanotic,no ulcer. - Neurologic Neurologic: CNII-XII intact - Musculoskeletal Musculoskeletal: generalized weakness, large open wound to the right anterior/ lateral thigh area with significant bleeding despite pressure dressing. - Psychiatric Psychiatric: A&O x's 3, appropriate affect - Labs CBC & Chem 7: 01/10/18 07:03 01/10/18 07:03 Labs: Abnormal Lab Results - Last 24 Hours (Table) 01/09/18 01/10/18 01/10/18 Range/Units 10:43 07:03 07:03 WBC 2.0 L (3.8-10.6) k/uL RBC 3.69 L (4.30-5.90) m/uL Hgb 11.5 L (13.0-17.5) gm/dL Hct 35.6 L (39.0-53.0) % RDW 15.9 H (11.5-15.5) % Plt Count 31 L (150-450) k/uL Neutrophils # 1.2 L (1.3-7.7) k/uL Lymphocytes # 0.5 L (1.0-4.8) k/uL Chloride 109 H (98-107) mmol/L BUN 8 L (9-20) mg/dL Calcium 8.2 L (8.4-10.2) mg/dL Total Bilirubin 3.1 H (0.2-1.3) mg/dL Albumin 2.9 L (3.5-5.0) g/dL Vancomycin Trough 35.6 H* ug/mL Microbiology - Last 24 Hours (Table) 01/05/18 15:45 Blood Culture - Preliminary Blood No Growth after 96 hours Assessment and Plan Assessment: Assessment and Plan Plan: 1. Abscess right thigh status post debridement. Hip CAT scan as above. He is currently on vancomycin and Zosyn. Consult with Dr. Lerner and Dr. Jose. Wound culture and blood culture finalized with no growth. 2. Bleeding from right thigh wound. Platelet transfusion ordered and consult with hematology 3. History of alcoholic liver disease with portal hypertension and previous episodes of acute GI bleed with acute blood loss anemia resulting in multiple hospitalizations for GI bleeding from esophageal varices status post banding. Continue ferrous sulfate, magnesium oxide, multivitamin, thiamine, . 4. Chronic thrombocytopenia secondary to chronic EtOH related bone marrow damage and portal hypertension causing splenic sequestration. Platelet transfusion ordered and consult with hematology 5. Spinal stenosis with peripheral neuropathy. 6. History of pancreatitis. 7. Tobacco use and dependence. Nicotine patch. 8. Hypothyroidism. Continue levothyroxine 25 g daily. 9. GI prophylaxis and history of nonsteroidal anti-inflammatory gastropathy. Continue Carafate, Protonix 10. Recurrent depression. Continue Prozac 20 mg daily. 11. DVT prophylaxis. No heparin due to thrombocytopenia. SCDs and ANDREEA hose and early ambulation. Discharge plan: Home tomorrow morning.
[2018-01-10] MEDS: VANCOMYCIN 1,250 MG in SODIUM CHLORIDE 0.9% 250 ML IVPB SCH ×2 (12:21→23:17)
--- NOTE | 2018-01-11 01:17 | PN ---
PROGRESS NOTE DATE OF SERVICE: 01/10/2018. REASON FOR FOLLOWUP: Right hip abscess status post drainage and local wound care. INTERVAL HISTORY: The patient is a 42-year-old male who has been admitted to the hospital on 01/05/2018 for a right knee abscess that has been drained surgically by Dr. Jose on 01/07/2018. The patient did have a pressure dressing applied to that area. Surgery saw the patient and recommend dressing can be changed, however, requested ID to evaluate the patient for a dressing change. I was asked to see the patient today by the patient's nurse. The patient has been afebrile. He is still having pain to the right hip area, more of a dull aching pain, 3 to 4/10, no radiation. No surrounding swelling or redness or any significant drainage Denies having any chest pain, shortness of breath. No cough. No abdominal pain, no diarrhea. EXAMINATION: Blood pressure 113/66, pulse of 70, temperature 97.6, he is 96% on room air. GENERAL DESCRIPTION: A middle-aged male lying in bed in no distress. HEENT: Pallor, no scleral icterus. LUNGS: Unlabored breathing. Clear to auscultation anteriorly. HEART: S1, S2. Regular rate and rhythm. ABDOMEN: Right hip wound, dressing was removed. The wound base looks clean with no slough tissue. No surrounding erythema. No foul smelling drainage. EXTREMITIES: No edema of the feet. LABS: Hemoglobin is 11.5, white count 2.0 with a BUN of 8, creatinine 1.16. Culture has been pending so far. DIAGNOSTIC IMPRESSION AND PLAN: Patient with right scrotal area abscess status post drainage. Culture is currently pending. The wound base looks clean. Recommend Aquacel silver packing of this wound, to continue with vanco and Zosyn while waiting for the culture to finalize. Discharge antibiotic per Dr. Lerner. Continue supportive care. MMODL / IJN: [id number] /
[2018-01-11] MEDS: PIPERACILLIN-TAZOBACTAM 3.375 GM in SODIUM CHLORIDE 0.9% 100 ML IVPB SCH ×2 (01:31→08:08)
[2018-01-11] MEDS: HYDROmorphone 2 MG TAB PO PRN ×4 (02:02→14:14)
[2018-01-11] MEDS: LEVOTHYROXINE 25 MCG TAB PO SCH (06:09)
[2018-01-11 06:36] VITALS: BP 115/76; PULSE 62; TEMP 98.1
[2018-01-11] MEDS: NICOTINE 14MG/24HR PATCH TRANSDERM SCH (08:08)
[2018-01-11] MEDS: MAGNESIUM OXIDE 400 MG TAB PO SCH (08:08)
[2018-01-11] MEDS: MULTIVITAMINS, THERA 1 EACH TAB PO SCH (08:08)
[2018-01-11] MEDS: PANTOPRAZOLE 40 MG TABLET PO SCH (08:08)
[2018-01-11] MEDS: THIAMINE 100 MG TAB PO SCH (08:08)
[2018-01-11] MEDS: FERROUS SULFATE 325 MG TAB PO SCH (08:08)
[2018-01-11] MEDS: FLUoxetine HCL 20 MG CAP PO SCH (08:08)
[2018-01-11] MEDS: SUCRALFATE 1 GM TAB PO SCH ×2 (08:08→12:04)
[2018-01-11] MEDS ORDERED: HYDROcodone/APAP 5-325MG 1 EACH TAB PO PRN (09:02)
[2018-01-11 09:53] LABS: Potassium 3.9 mmol/L (3.5-5.1)
[2018-01-11 09:54] LABS: ALT 28 U/L (21-72); AST 53 U/L (17-59); Albumin 2.7 g/dL (3.5-5.0); Alkaline Phosphatase 73 U/L (38-126); Anion Gap 7 mmol/L; Blood Urea Nitrogen 7 mg/dL (9-20); Calcium 8.2 mg/dL (8.4-10.2); Carbon Dioxide 23 mmol/L (22-30); Chloride 110 mmol/L (98-107); Glucose 102 mg/dL (74-99); Sodium 140 mmol/L (137-145); Total Bilirubin 3.1 mg/dL (0.2-1.3); Total Protein 5.9 g/dL (6.3-8.2)
[2018-01-11 09:55] LABS: Anisocytosis Slight; Basophils % (A) 1 %; Eosinophils % (A) 2 %; HCT 32.1 % (39.0-53.0); HGB 10.8 gm/dL (13.0-17.5); Lymphocytes # (A) 0.5 k/uL (1.0-4.8); Lymphocytes % (A) 22 %; MCH 32.3 pg (25.0-35.0); MCHC 33.6 g/dL (31.0-37.0); MCV 96.3 fL (80.0-100.0); Mean Platelet Volume 7.7; Monocytes # (A) 0.2 k/uL (0-1.0); Monocytes % (A) 10 %; Neutrophils # (A) 1.4 k/uL (1.3-7.7); Neutrophils % (A) 62 %; RBC 3.33 m/uL (4.30-5.90); RDW 16.2 % (11.5-15.5); WBC 2.2 k/uL (3.8-10.6)
[2018-01-11 10:00] LABS: Platelet Count 29 k/uL (150-450)
[2018-01-11] MEDS: VANCOMYCIN 1,250 MG in SODIUM CHLORIDE 0.9% 250 ML IVPB SCH (12:04)
--- NOTE | 2018-01-11 12:20 | P.PN ---
Subjective Progress Note Date: 01/11/18 42-year-old male seen at the bedside. Patient states is anxious to be discharged. Reportedly less pain at surgical site. Dressing currently to the right thigh is dry. Patient is status post bedside debridement January 07 of the right thigh abscess patient does have a history of chronic alcoholism with chronic thrombocytopenia the platelets this morning are 29 Objective - Vital Signs Vital signs: Vital Signs Temp 98.1 F 01/11/18 06:35 Pulse 62 01/11/18 06:35 Resp 18 01/11/18 06:35 BP 115/76 01/11/18 06:35 Pulse Ox 98 01/11/18 06:35 Intake & Output 01/10/18 01/11/18 01/11/18 18:59 06:59 18:59 Intake Total 1200 750 Output Total 1450 Balance 1200 -700 Intake: Oral 1200 750 Output: Urine 1450 Other: Voiding Method Urinal Toilet Urinal # Voids 4 0 # Bowel Movements 0 - Exam Physical exam 42-year-old male resting in bed appears no acute distress talkative pleasant states there is less pain in the right thigh Lungs adequate air movement bilaterally on room air no cough no shortness of breath Heart S1-S2 audible regular denying chest pain Abdomen soft reports no nausea vomiting no frequent stooling nondistended nontender tolerating diet Extremities bilaterally dressing to the right anterior thigh dry with a pressure dressing in place - Labs CBC & Chem 7: 01/11/18 08:46 01/11/18 08:46 Labs: Abnormal Lab Results - Last 24 Hours (Table) 01/11/18 01/11/18 Range/Units 08:46 08:46 WBC 2.2 L (3.8-10.6) k/uL RBC 3.33 L (4.30-5.90) m/uL Hgb 10.8 L (13.0-17.5) gm/dL Hct 32.1 L (39.0-53.0) % RDW 16.2 H (11.5-15.5) % Plt Count 29 L (150-450) k/uL Lymphocytes # 0.5 L (1.0-4.8) k/uL Chloride 110 H (98-107) mmol/L BUN 7 L (9-20) mg/dL Glucose 102 H (74-99) mg/dL Calcium 8.2 L (8.4-10.2) mg/dL Total Bilirubin 3.1 H (0.2-1.3) mg/dL Total Protein 5.9 L (6.3-8.2) g/dL Albumin 2.7 L (3.5-5.0) g/dL Microbiology - Last 24 Hours (Table) 01/05/18 15:45 Blood Culture - Preliminary Blood No Growth after 120 hours Assessment and Plan Assessment: Impression Present on admission right anterior thigh abscess lesion 3 cm in diameter with surrounding erythema and edema no involvement of the groin draining foul odor no tenderness to the touch unclear etiology History of prior MRSA History alcohol liver cirrhosis with portal hypertension with prior GI bleeding Chronic Thrombocytopenia secondary to cirrhosis of the liver platelets 35 Right femur x-ray shows no evidence of an acute fracture or dislocation no suspicious destruction Excisional Debridement right thigh abscess January 07 Plan Continue management per the attending and consultants IV Zosyn and vancomycin as ordered Further recommendations pending clinical course Wound care per infectious disease follow-up on cultures Monitor platelets No further surgical recommendations at this time The above impression and plan of care have been discussed and directed by signing physician. Celeste Pierson nurse practitioner acting as scribe for signing physician.
--- NOTE | 2018-01-11 18:18 | P.DS ---
Providers Date of admission: 01/05/18 17:33 Expected date of discharge: 01/11/18 Attending physician: Wilton Bateman Consults: 01/05/18 17:34 Consult Physician Routine Consulting Provider: iWlton Lerner Consult Reason/Comments: Right lower extremity cellulitis with open wound Do you want consulting provider notified?: Yes 01/06/18 09:59 Consult Physician Routine Consulting Provider: Vinnie Jose Consult Reason/Comments: wound debridement Do you want consulting provider notified?: Yes 01/08/18 11:56 Consult Physician Routine Consulting Provider: Calderon Grant Consult Reason/Comments: Thrombocytopenia Do you want consulting provider notified?: Yes [facility] Course: This is a 40-year-old male patient of Dr. Sarmad Linn. He has history of alcohol liver cirrhosis with portal hypertension and previous GI bleeding, hypertension and gastritis, pancreatitis, spinal stenosis and peripheral neuropathy. He is also known to Dr. Smart from previous EGDs in the past. This was last performed in 01/16/2017 with small distal esophageal varices. He was admitted for acute GI bleed in Jan 2016, Mar 2016 and Mar 2017. Patient states that he noticed a bump on the lateral side of his right leg last week and then on Thursday and broke open and started draining pus and blood. He denies having any injury, scratch to the area. He denies any history of diabetes. No history of MRSA. He did not see his PCP. He does state that in the summertime he gets lesions on his inside of his thighs and the end up popping and going away on their own. Patient denies any recent alcohol intake. He states he has been heavy alcohol intake in the past up to a pint per day for 7 years but now only drinks an occasional beer. He presented to [facility] emergency center. He has been afebrile, normal white count, hemoglobin 13.2, platelet count 35, creatinine 0.75. Initial lactic acid 2.3 and repeat 1.5. Total bilirubin 2.4. AST, ALT and alk phos within normal limits. Albumin 3.0. Wound culture and blood culture have been obtained. Patient was started on vancomycin and Zosyn and admitted to the [facility] floor and consult requested Dr. Lerner, infectious disease, and Dr. Jose, general surgery. 01/07: Consults with Drs. Jose and Yann are appreciated. Patient is continued on IV Zosyn and vancomycin. Wound culture in progress. Patient states that Dr. Jose is planning on bedside debridement this morning. We will order CAT scan of the right thigh. 01/08: Patient underwent debridement of necrotic skin and subcutaneous tissue done yesterday by Dr. Jose. Wound cultures been finalized with no growth after 48 hours and blood cultures no growth after 48 hours. Patient has been afebrile, pulse ox 91% on room air. Hip CAT scan showed superficial wound along the anterior lateral right thigh. Underlying abscess not identified. Phlegmon not entirely excluded. Note there is a large vessel running just deep to the structure. The area measures 1.5 x 2.5 cm. Patient has had some minor bleeding since surgery and had dressing change 3 times during the night but bleeding has significantly increased this morning despite use of pressure dressing. WBC is 2.6, hemoglobin 12.4, platelet count 19. Transfusion of 2 units of platelets ordered but not available in-house and transfusion will be delayed. General surgery is aware of bleeding and will be seeing the patient shortly. At this point, patient's vital signs are stable. Consult placed with hematology. 01/09: Patient is laying down in bed he continues to have some pain in the right thigh, he denies any chest pain, shortness breath, he has no nausea or vomiting and has poor appetite, he continues to have a dry skin. 01/10: Patient is doing better he denies any chest pain or shortness breath, he continues to have significant dry skin, there is no oozing from the dressing on the right hip, this will be changed tomorrow morning keep the dressing on for today. 01/11: Bleeding from right thigh remained stopped. Hgb 10.8, PLT 29, WBC 2.2. Patient has been cleared by surgery for discharge home. Patient will be discharged home in stable condition. Augmentin ordered by Dr. Lerner. Discharge diagnoses: 1. Abscess right thigh status post sharp/excisional debridement. 2. Bleeding from right thigh wound. 3. History of alcoholic liver disease with portal hypertension and previous episodes of acute GI bleed with acute blood loss anemia resulting in multiple hospitalizations for GI bleeding from esophageal varices status post banding. 4. Chronic thrombocytopenia secondary to chronic EtOH related bone marrow damage and portal hypertension causing splenic sequestration status post platelet transfusion. 5. Spinal stenosis with peripheral neuropathy. 6. History of pancreatitis. 7. Tobacco use and dependence. 8. Hypothyroidism. 9. History of nonsteroidal anti-inflammatory gastropathy. 10. Recurrent depression. Discharge plan: Home Impression and plan of care have been directed as dictated by the signing physician. Giovana Kathleen nurse practitioner acting as scribe for signing physician. Patient Condition at Discharge: Good Plan - Discharge Summary Discharge Rx Participant: Yes New Discharge Prescriptions: New HYDROcodone/APAP 5-325MG [Lindale 5-325] 1 each PO Q6H PRN #12 tab PRN Reason: Pain Amoxic-Pot Clav 875-125Mg [Augmentin 875-125] 1 tab PO Q12HR #14 tablet Continue Vitamin B Complex 1 cap PO DAILY Levothyroxine Sodium [Synthroid] 25 mcg PO DAILY Ascorbic Acid [Vitamin C] 500 mg PO DAILY Pantoprazole Sodium [Protonix] 20 mg PO BID Ferrous Sulfate [Iron (65 MG Elemental)] 325 mg PO DAILY Sucralfate [Carafate] 1 gm PO QID Magnesium 200 mg PO DAILY Multivitamin [Men's Multi-Vitamin] 1 tab PO DAILY Calcium Carb-Vit D 500Mg-200Un [Oscal 500+D] 1 each PO TID-W/MEALS tab FLUoxetine HCL [PROzac] 20 mg PO DAILY #30 cap Nicotine 21Mg/24Hr Patch [Habitrol] 1 patch TRANSDERM DAILY #30 patch Thiamine [Vitamin B-1] 100 mg PO BID@1200,1700 tab Discharge Medication List Vitamin B Complex 1 cap PO DAILY 03/04/16 [History] Levothyroxine Sodium [Synthroid] 25 mcg PO DAILY 05/07/16 [History] Ascorbic Acid [Vitamin C] 500 mg PO DAILY 01/02/17 [History] Pantoprazole Sodium [Protonix] 20 mg PO BID 01/02/17 [History] Ferrous Sulfate [Iron (65 MG Elemental)] 325 mg PO DAILY 01/15/17 [History] Sucralfate [Carafate] 1 gm PO QID 01/15/17 [History] Magnesium 200 mg PO DAILY 03/05/17 [History] Multivitamin [Men's Multi-Vitamin] 1 tab PO DAILY 03/05/17 [History] Calcium Carb-Vit D 500Mg-200Un [Oscal 500+D] 1 each PO TID-W/MEALS tab [Rx] FLUoxetine HCL [PROzac] 20 mg PO DAILY #30 cap 03/11/17 [Rx] Nicotine 21Mg/24Hr Patch [Habitrol] 1 patch TRANSDERM DAILY #30 patch 03/11/17 [ Rx] Thiamine [Vitamin B-1] 100 mg PO BID@1200,1700 tab 03/11/17 [Rx] Amoxic-Pot Clav 875-125Mg [Augmentin 875-125] 1 tab PO Q12HR #14 tablet [Rx] HYDROcodone/APAP 5-325MG [Lindale 5-325] 1 each PO Q6H PRN #12 tab 01/11/18 [Rx] Follow up Appointment(s)/Referral(s): Wilton Lerner MD [STAFF PHYSICIAN] - 01/28/18 2:[address] [facility], [NON-STAFF] - Pablo Linn MD [Primary Care Provider] - 01/12/18 11:30 am Ambulatory/Diagnostic Orders: Ambulatory Miscellaneous Order [MISC.AMB] Location: None Selected Activity/Diet/Wound Care/Special Instructions: aquacel AG to right thigh activity as tolerated regular diet as tolerated [facility] Discharge Disposition: HOME WITH HOME HEALTH SERVICES
[2018-01-11] MEDS ORDERED: AMOXIC-POT CLAV 875-125MG 1 EACH TAB PO SCH (21:00)
--- NOTE | 2018-01-11 22:50 | P.PN ---
Subjective Progress Note Date: 01/11/18 This is a 42-year-old male patient with history of alcohol liver cirrhosis with portal hypertension and previous GI bleeding, hypertension and gastritis, pancreatitis, spinal stenosis and peripheral neuropathy. He is also known to Dr. Smart from previous EGDs in the past. This was last performed in with small distal esophageal varices. He was admitted for acute GI bleed in Jan 2016, Mar 2016 and Mar 2017. Patient states that he noticed a bump on the lateral side of his right leg last week and then on Thursday and broke open and started draining pus and blood. He denies having any injury, scratch to the area. He denies any history of diabetes. No history of MRSA. He did not see his PCP. He does state that in the summertime he gets lesions on his inside of his thighs and the end up popping and going away on their own. Patient denies any recent alcohol intake. He states he has been heavy alcohol intake in the past up to a pint per day for 7 years but now only drinks an occasional beer. He presented to [facility] emergency center. He has been afebrile, normal white count, hemoglobin 13.2, platelet count 35, creatinine 0.75. Initial lactic acid 2.3 and repeat 1.5. Total bilirubin 2.4. AST, ALT and alk phos within normal limits. Albumin 3.0. Wound culture and blood culture have been obtained. Patient was started on vancomycin and Zosyn and [facility]. 01/11/2018 patient is status post surgical debridement of the right thigh. The patient did have some significant bleeding after the procedure and with pressure dressings and follow-up by Dr. Delaney there is been further improvement. He palisading ready for discharge home today. Cultures are reviewed and are negative so far which is quite surprising given the extensive nature of this infection at admission. Objective - Vital Signs Vital signs: Vital Signs Temp 98.1 F 01/11/18 06:35 Pulse 62 01/11/18 06:35 Resp 18 01/11/18 06:35 BP 115/76 01/11/18 06:35 Pulse Ox 98 01/11/18 06:35 Intake & Output 01/11/18 01/11/18 01/12/18 06:59 18:59 06:59 Intake Total 750 Output Total 1450 Balance -700 Intake: Oral 750 Output: Urine 1450 Other: Voiding Method Urinal Toilet Urinal # Voids 0 2 # Bowel Movements 0 - Exam General appearance: average body habitus, cooperative, no distress - EENT Eyes: EOMI, PERRLA, no photophobia, poor dentition, no ptosis, scleral icterus ENT: hearing grossly normal, normal oropharynx Ears: bilateral: normal - Neck Neck: lymphadenopathy Carotids: bilateral: upstroke normal - Respiratory Respiratory: bilateral: CTA, negative: diminished, dullness, rales, rhonchi, wheezing - Cardiovascular Rhythm: regular Heart sounds: normal: S1, S2 Abnormal Heart Sounds: no systolic murmur, no diastolic murmur, no rub, no click - Gastrointestinal General gastrointestinal: decreased bowel sounds, distended, soft, tenderness Localized gastrointestinal: tender: diffuse, epigastric periumbilical no guarding or rebound - Integumentary Integumentary: no cyanotic, jaundiced, rash (left frontal hematoma and foot bruise on the dorsal aspect of the left foot ), no ulcer - Neurologic Neurologic: CNII-XII intact - Musculoskeletal Musculoskeletal: generalized weakness, The open ulceration to the right anterior thigh is now improved status post incision and drainage. The slough, necrotic material foul odor have all resolved - Psychiatric Psychiatric: A&O x's 3, appropriate affect - Labs CBC & Chem 7: 01/11/18 08:46 01/11/18 08:46 Labs: Abnormal Lab Results - Last 24 Hours (Table) 01/11/18 01/11/18 Range/Units 08:46 08:46 WBC 2.2 L (3.8-10.6) k/uL RBC 3.33 L (4.30-5.90) m/uL Hgb 10.8 L (13.0-17.5) gm/dL Hct 32.1 L (39.0-53.0) % RDW 16.2 H (11.5-15.5) % Plt Count 29 L (150-450) k/uL Lymphocytes # 0.5 L (1.0-4.8) k/uL Chloride 110 H (98-107) mmol/L BUN 7 L (9-20) mg/dL Glucose 102 H (74-99) mg/dL Calcium 8.2 L (8.4-10.2) mg/dL Total Bilirubin 3.1 H (0.2-1.3) mg/dL Total Protein 5.9 L (6.3-8.2) g/dL Albumin 2.7 L (3.5-5.0) g/dL Microbiology - Last 24 Hours (Table) 01/05/18 15:45 Blood Culture - Final Blood No Growth after 144 hours Laboratory Results WBC 2.2 k/uL (3.8-10.6) L 01/11/18 08:46 RBC 3.33 m/uL (4.30-5.90) L 01/11/18 08:46 Hgb 10.8 gm/dL (13.0-17.5) L 01/11/18 08:46 Hct 32.1 % (39.0-53.0) L 01/11/18 08:46 MCV 96.3 fL (80.0-100.0) 01/11/18 08:46 MCH 32.3 pg (25.0-35.0) 01/11/18 08:46 MCHC 33.6 g/dL (31.0-37.0) 01/11/18 08:46 RDW 16.2 % (11.5-15.5) H 01/11/18 08:46 Plt Count 29 k/uL (150-450) L 01/11/18 08:46 Neutrophils % 62 % 01/11/18 08:46 Lymphocytes % 22 % 01/11/18 08:46 Monocytes % 10 % 01/11/18 08:46 Eosinophils % 2 % 01/11/18 08:46 Basophils % 1 % 01/11/18 08:46 Neutrophils # 1.4 k/uL (1.3-7.7) 01/11/18 08:46 Lymphocytes # 0.5 k/uL (1.0-4.8) L 01/11/18 08:46 Monocytes # 0.2 k/uL (0-1.0) 01/11/18 08:46 Eosinophils # 0.0 k/uL (0-0.7) 01/11/18 08:46 Basophils # 0.0 k/uL (0-0.2) 01/11/18 08:46 Anisocytosis Slight 01/11/18 08:46 Macrocytosis Slight 01/08/18 09:19 PT 14.5 sec (9.0-12.0) H 01/08/18 17:39 INR 1.6 (<1.2) H 01/08/18 17:39 APTT 25.7 sec (22.0-30.0) 01/08/18 17:39 Sodium 140 mmol/L (137-145) 01/11/18 08:46 Potassium 3.9 mmol/L (3.5-5.1) 01/11/18 08:46 Chloride 110 mmol/L (98-107) H 01/11/18 08:46 Carbon Dioxide 23 mmol/L (22-30) 01/11/18 08:46 Anion Gap 7 mmol/L 01/11/18 08:46 BUN 7 mg/dL (9-20) L 01/11/18 08:46 Creatinine 1.10 mg/dL (0.66-1.25) 01/11/18 08:46 Est GFR (CKD-EPI)AfAm >90 (>60 ml/min/1.73 sqM) 01/11/18 08:46 Est GFR (CKD-EPI)NonAf 83 (>60 ml/min/1.73 sqM) 01/11/18 08:46 Glucose 102 mg/dL (74-99) H 01/11/18 08:46 Lactic Ac Sepsis Rflx Y 01/05/18 16:54 Plasma Lactic Acid Reji 1.5 mmol/L (0.7-2.0) 01/05/18 20:10 Calcium 8.2 mg/dL (8.4-10.2) L 01/11/18 08:46 Total Bilirubin 3.1 mg/dL (0.2-1.3) H 01/11/18 08:46 AST 53 U/L (17-59) 01/11/18 08:46 ALT 28 U/L (21-72) 01/11/18 08:46 Alkaline Phosphatase 73 U/L (38-126) 01/11/18 08:46 Total Protein 5.9 g/dL (6.3-8.2) L 01/11/18 08:46 Albumin 2.7 g/dL (3.5-5.0) L 01/11/18 08:46 Vancomycin Trough 35.6 ug/mL H* 11/10/18 10:43 Random Vancomycin 16.4 ug/mL 01/10/18 07:03 Blood Type O Negative 01/08/18 12:02 Blood Type Recheck No 01/08/18 12:02 Antibody Screen NEGATIVE 01/08/18 12:02 Transfuse Platelets 01/08/18 01/08/18 12:02 Spec Expiration Date 01/11/2018 - 230101/08/18 12:02 Microbiology 01/05/18 15:45 Blood Blood Culture - Final No Growth after 144 hours 01/05/18 15:45 Leg - Right Gram Stain - Final 01/05/18 15:45 Leg - Right Wound Culture - Final Assessment and Plan (1) Abscess of right thigh Narrative/Plan: This 42-year-old gentleman has a very extensive past medical history has developed a significant abscess to his right thigh. It is very tender manipulation. There is grossly necrotic material that is present. The case will be discussed with the surgical service and hopefully a debridement and can be performed, the patient is in too much pain to have this done at the bedside without some type of anesthesia. Antibiotic therapy with vancomycin and Zosyn is being used for now while cultures are pending. Local wound care is with a Vaseline dressing given the extremely tender nature to the site. The patient relates his appetite is adequate and we'll try to have a high protein intake to help his healing. Multivitamin is added. Cultures will help direct the course of antibiotic therapy at the time of discharge. 01/11/2018 computed tomography scan was performed that failed reveal evidence of a significant deep abscess but there was evidence of phlegmon in the necrotic material the patient was taken the operating for the incision and drainage of the site. There is no marked improvement. Cultures are negative. Antibiotic therapy discharges of Augmentin which is sent to his pharmacy. Local wound care through home care with the alginate silver dressing is been requested Status: Acute Code(s): L02.415 - CUTANEOUS ABSCESS OF RIGHT LOWER LIMB SNOMED Code(s): 0574732
[2018-01-12] MEDS ORDERED: VANCOMYCIN TROUGH DUE 1 EACH MISC MISCELLANE ONE (11:00)
== END 2018-01-11 16:47 | disposition home health service (06) | DRG 571 ==
LOC: EC 14:38 → 4MS4W 17:33
PROVIDERS: ADMIT Internal Medicine Geriatric Medicine; ATTEND Internal Medicine Geriatric Medicine
PROC: 0JBL0ZZ Excision of Right Upper Leg Subcutaneous Tissue and Fascia, Open Approach (ICD-10-PCS; principal; 2018-01-07)
PROC: 6A551Z2 Pheresis of Platelets, Multiple (ICD-10-PCS; 2018-01-08)
DX: L02.415 Cutaneous abscess of right lower limb (principal); D61.818 Other pancytopenia; F33.9 Major depressive disorder, recurrent, unspecified; I96 Gangrene, not elsewhere classified; K76.6 Portal hypertension; K86.1 Other chronic pancreatitis; D68.9 Coagulation defect, unspecified; G61.0 Guillain-Barre syndrome; L03.115 Cellulitis of right lower limb; D69.59 Other secondary thrombocytopenia; E03.9 Hypothyroidism, unspecified; F10.21 Alcohol dependence, in remission; F17.210 Nicotine dependence, cigarettes, uncomplicated; G62.9 Polyneuropathy, unspecified; I10 Essential (primary) hypertension; K21.9 Gastro-esophageal reflux disease without esophagitis; M48.00 Spinal stenosis, site unspecified; K70.30 Alcoholic cirrhosis of liver without ascites; G89.29 Other chronic pain; M54.5 Low back pain; D75.89 Other specified diseases of blood and blood-forming organs; Z79.899 Other long term (current) drug therapy; Z86.14 Personal history of Methicillin resistant Staphylococcus aureus infection; Z91.81 History of falling; Z90.49 Acquired absence of other specified parts of digestive tract; Z96.60 Presence of unspecified orthopedic joint implant
CPT/HCPCS: 36415; 80048; 80053; 80202; 83605; 85025; 85610; 85730; 86850; 86900; 86901; 87040; 87070; 87205; 96361; 96365; 96375; 99284

== ENCOUNTER 2018-04-20 11:27 | Day surgery (SDC) | payer MEDICARE ==
[2018-04-16 13:53] VITALS: BMI 23.9
[~2018-04-20 11:27] MED LIST changes: +HYDROmorphone 0.5 MG/0.5 ML SYRINGE IVP PRN
[2018-04-20 12:17] VITALS: RESP 16; TEMP 98.2
[2018-04-20 12:24] LABS: Anisocytosis Slight; Basophils % (A) 1 %; Eosinophils # (A) 0.1 k/uL (0-0.7); Eosinophils % (A) 3 %; HCT 36.9 % (39.0-53.0); HGB 12.1 gm/dL (13.0-17.5); Lymphocytes # (A) 0.6 k/uL (1.0-4.8); Lymphocytes % (A) 23 %; MCH 32.3 pg (25.0-35.0); MCHC 32.8 g/dL (31.0-37.0); MCV 98.4 fL (80.0-100.0); Macrocytosis Slight; Mean Platelet Volume 8.6; Monocytes # (A) 0.3 k/uL (0-1.0); Monocytes % (A) 10 %; Neutrophils # (A) 1.7 k/uL (1.3-7.7); Neutrophils % (A) 61 %; RBC 3.75 m/uL (4.30-5.90); RDW 16.4 % (11.5-15.5); WBC 2.7 k/uL (3.8-10.6)
[2018-04-20 12:31] LABS: Platelet Count 44 k/uL (150-450)
[2018-04-20 12:34] LABS: INR 1.4 (<1.2); Prothrombin Time 14.1 sec (9.0-12.0)
[2018-04-20] MEDS ORDERED: LIDOCAINE 1% INJ 10MG/ML (20 ML MDV) ONE (13:04)
[2018-04-20] MEDS ORDERED: PROPOFOL 10 MG/ML 20 ML VIAL IV ONE (13:04)
[2018-04-20] MEDS ORDERED: fentaNYL (PF) 50 MCG/ML 2 ML AMP ONE (13:04)
--- NOTE | 2018-04-20 13:30 | P.PCN ---
Date of Procedure: 04/20/18 Procedure(s) Performed: Procedure: Esophagogastroduodenoscopy. Preoperative diagnosis: History of alcoholic liver disease with portal hypertension and esophageal varices. Postoperative diagnosis: Gastritis consistent with portal gastropathy but no gastric or esophageal varices or active bleeding. Preparation sedation: Was provided by anesthesia. Brief clinical history: The patient is a 42-year-old male with history of alcoholic cirrhosis of the liver and chronic pancreatitis with prior history of GI bleeding from esophageal varices for which he underwent banding around January 2016 and March 2016. This evaluation is part of his surveillance. Procedure: With the patient on his left lateral decubitus position and after informed consent and adequate sedation, I passed the Olympus-GIF 8-190 video upper endoscope through the cricopharyngeus down the esophagus. The esophagus did not show any significant varices or any stigmata of bleeding or any evidence of esophagitis or strictures. There was no hiatal hernia then the endoscope was passed into the stomach which was insufflated with air and inspected in detail including the retroflex view in the cardia. There was no evidence of gastric varices. The stomach showed gastritis consistent with portal gastropathy but there were no ulcers or bleeding. Pyloric channel, duodenal bulb, post bulbar area and descending duodenum appeared within normal limits. There was no indications for biopsies then the endoscope was withdrawn. The patient tolerated the procedure well. Plan: The patient was reassured. I advised him to continue to abstain from drinking alcohol. He is scheduled for an MRI tomorrow and he will follow up in our office next month. We will keep you updated on his progress.
[2018-04-20 13:43] VITALS: BP 110/72; PULSE 70
== END 2018-04-20 13:54 | disposition home or self-care (01) ==
LOC: ORWHC2ENDO 11:27
DX: K70.30 Alcoholic cirrhosis of liver without ascites (principal); K76.6 Portal hypertension; K31.89 Other diseases of stomach and duodenum; K29.70 Gastritis, unspecified, without bleeding; Z87.19 Personal history of other diseases of the digestive system; E07.9 Disorder of thyroid, unspecified; K21.9 Gastro-esophageal reflux disease without esophagitis; Z79.890 Hormone replacement therapy; Z79.899 Other long term (current) drug therapy
CPT/HCPCS: 85025; 85610; 43235; J2001; J3010; J2704

== ENCOUNTER → 2018-04-21 | Outpatient (CLI) | payer MEDICARE ==
--- NOTE | 2018-04-22 00:32 | MR ---
MR scan of the liver. History cirrhosis. Alcoholic cirrhosis. Comparison none. TECHNIQUE: Multiplanar multiecho imaging of the abdomen was performed without and with IV contrast. The contrast was gadolinium 7.5 mL. FINDINGS: Spleen is enlarged and measures 17 x 8 cm. Stomach appears normal. The gallbladder is large and measu res 10 x 3.7 cm. Liver has irregular margin consistent with cirrhosis. I see no discrete liver mass. The bile ducts are not dilated. There is no evidence of a pancreatic mass. There is no sign of adrenal mass. Kidneys show no hydronephrosis. Kidneys have normal size and contou r. There is normal flow-void in the portal vein. I see no retroperitoneal adenopathy. There is hetero geneous signal pattern in the liver consistent with cirrhosis. Delayed images show persistent extensi ve heterogeneous pattern in the liver consistent with multiple areas of scarring. No suspicious discr ete liver mass seen. I see no bony destructive process. IMPRESSION: Severe splenomegaly. This probably relates to chronic portal venous hypertension and chronic liver di sease. Extensive heterogeneity throughout the liver which is somewhat irregular. No discrete suspicious mass identified. This pattern is consistent with significant chronic alcoholic liver disease with scarrin g and cirrhotic changes. Mildly dilated gallbladder is suggestive of gallbladder dysfunction. No dila ele ducts.
== END | disposition home or self-care (01) ==
LOC: RADMRIMAIN 18:33
PROVIDERS: ATTEND Internal Medicine Gastroenterology
DX: R93.2 Abnormal findings on diagnostic imaging of liver and biliary tract (principal); R16.1 Splenomegaly, not elsewhere classified
CPT/HCPCS: 74183; A9585

== ENCOUNTER 2018-08-02 19:52 | Observation (INO) | payer MEDICARE ==
[2018-08-02] MEDS ORDERED: MORPHINE SULFATE 4 MG/ML SYRINGE IV STA (20:50)
[2018-08-02] MEDS ORDERED: SODIUM CHLORIDE 0.9% 500 ML 500 ML IV STA (20:50)
[2018-08-02] MEDS ORDERED: SODIUM CHLORIDE 0.9% 1,000 ML IV STA (21:26)
[2018-08-02 21:30] LABS: ALT 21 U/L (21-72); AST 57 U/L (17-59); African American GFR (CKD) >90 (>60 ml/min/1.73 sqM); Albumin 3.7 g/dL (3.5-5.0); Alkaline Phosphatase 96 U/L (38-126); Anion Gap 12 mmol/L; Blood Urea Nitrogen 11 mg/dL (9-20); Calcium 8.5 mg/dL (8.4-10.2); Carbon Dioxide 20 mmol/L (22-30); Chloride 115 mmol/L (98-107); Glucose 147 mg/dL (74-99); INR 1.6 (<1.2); Lipase 210 U/L (23-300); Potassium 3.8 mmol/L (3.5-5.1); Prothrombin Time 16.4 sec (9.0-12.0); Sodium 147 mmol/L (137-145); Total Bilirubin 4.9 mg/dL (0.2-1.3); Total Protein 7.3 g/dL (6.3-8.2)
[2018-08-02 21:32] LABS: Basophils % (A) 1 %; Eosinophils # (A) 0.1 k/uL (0-0.7); Eosinophils % (A) 2 %; HCT 38.8 % (39.0-53.0); HGB 12.6 gm/dL (13.0-17.5); Lymphocytes # (A) 0.7 k/uL (1.0-4.8); Lymphocytes % (A) 16 %; MCH 29.3 pg (25.0-35.0); MCHC 32.6 g/dL (31.0-37.0); MCV 89.9 fL (80.0-100.0); Mean Platelet Volume 7.6; Monocytes # (A) 0.3 k/uL (0-1.0); Monocytes % (A) 6 %; Neutrophils # (A) 3.3 k/uL (1.3-7.7); Neutrophils % (A) 75 %; RBC 4.31 m/uL (4.30-5.90); RDW 14.9 % (11.5-15.5); WBC 4.4 k/uL (3.8-10.6)
[2018-08-02 21:47] LABS: Platelet Count 36 k/uL (150-450)
[2018-08-02 21:48] LABS: Anisocytosis (M) Present; Poikilocytosis (M) Present
--- NOTE | 2018-08-02 23:13 | CT ---
EXAM: CT Abdomen and Pelvis With Intravenous Contrast CLINICAL HISTORY: ITS.REASON CT Reason: abdominal pain TECHNIQUE: Axial computed tomography images of the abdomen and pelvis with intravenous contrast. This CT exam was performed using one or more of the following dose reduction techniques: automated exposure control, adjustment of the mA and/or kV according to patient size, and/or use of iterative reconstruction technique. COMPARISON: No relevant prior studies available. FINDINGS: Lung bases: Unremarkable. No mass. No consolidation. ABDOMEN: Liver: Cirrhotic liver. Gallbladder and bile ducts: Dilated CBD at 1.1 cm. No obstructing stones are seen. Pancreas: Chronic pancreatitis. No ductal dilation. Spleen: Splenomegaly. Adrenals: Unremarkable. No mass. Kidneys and ureters: Unremarkable. No solid mass. No hydronephrosis. Stomach and bowel: No obstruction. No mucosal thickening. PELVIS: Appendix: No findings to suggest acute appendicitis. Bladder: Unremarkable. No mass. Reproductive: Unremarkable as visualized. ABDOMEN and PELVIS: Intraperitoneal space: Trace free fluid No free air. Bones/joints: No acute fracture. No dislocation. Soft tissues: Unremarkable. Vasculature: No abdominal aortic aneurysm. Lymph nodes: Unremarkable. No enlarged lymph nodes. IMPRESSION: 1. Cirrhotic liver. 2. Dilated CBD at 1.1 cm. No obstructing stones are seen.
[2018-08-03 00:22] LABS: Appearance,Urine Clear (Clear); Bilirubin,Urine Negative (Negative); Blood,Urine Negative (Negative); Color,Urine Yellow; Glucose,Urine (UA) Negative (Negative); Ketones,Urine Negative (Negative); Leukocyte Esterase,Urine Negative (Negative); Nitrite,Urine Negative (Negative); PH, Urine 6.5 (5.0-8.0); Protein,Urine Trace (Negative)
[2018-08-03 00:30] LABS: Specific Gravity,Urine >1.050 (1.001-1.035)
[2018-08-03] MEDS ORDERED: MORPHINE SULFATE 4 MG/ML SYRINGE IV STA (00:45)
--- NOTE | 2018-08-03 01:05 | US ---
ADDENDUM - Added by Girish Langford MD on 08/03/2018 1:05 AM (-07:00) Cirrhotic liver. EXAM: US Abdomen Limited, Right Upper Quadrant CLINICAL HISTORY: ITS.REASON US Reason: Pain TECHNIQUE: Real-time ultrasound of the right upper quadrant with image documentation. COMPARISON: No relevant prior studies available. FINDINGS: Liver: Unremarkable. No mass. No intrahepatic bile duct dilation. Gallbladder: Borderline thickened gallbladder wall. No stones. Common bile duct: Severely dilated CBD at 1.3 cm. No stones. Pancreas: Unremarkable as visualized. Right kidney: Unremarkable. No stones. No solid mass. No hydronephrosis. IMPRESSION: 1. Borderline thickened gallbladder wall. No stones. 2. Severely dilated CBD at 1.3 cm. No CBD stones were seen.
--- NOTE | 2018-08-03 01:29 | ED ---
General Adult HPI - General Chief complaint: Abdominal Pain Stated complaint: Pain, Shaking Time Seen by Provider: 08/02/18 20:39 Source: patient, EMS, RN notes reviewed, old records reviewed Mode of arrival: EMS Limitations: no limitations - History of Present Illness Initial comments: 42-year-old male patient past medical history of liver cirrhosis, hypertension, occult dependency presents to ED for abdominal pain. Patient for status of abdominal pain. Patient describes his abdominal pain as diffuse throughout his abdomen. Patient states that this is baseline. Patient was that he has had this pain for greater than 3 months. Patient denies any chest pain shortness of breath. Patient does report nausea and vomiting. Patient denies any other complaints. Systemic: Pt denies fatigue, fever/chills, rash. Pt denies weakness, night sweats, weight loss. Neuro: Pt denies headache, visual disturbances, syncope or pre-syncope. HEENT: Pt denies ocular discharge or irritation, otalgia, rhinorrhea, pharyngitis or notable lymphadenopathy. Cardiopulmonary: Pt denies chest pain, SOB, heart palpitations, dyspnea on exertion. : Pt denies dysuria, burning w/ urination, frequency/urgency. Denies new onset urinary or bowel incontinence. MSK: Pt denies myalgia, loss of strength or function in extremities. Neuro: Pt denies new onset weakness, paresthesias. - Related Data Home Medications Medication Instructions Recorded Confirmed Levothyroxine Sodium [Synthroid] 25 mcg PO DAILY 05/07/16 08/02/18 Pantoprazole Sodium [Protonix] 20 mg PO BID 01/02/17 08/02/18 Magnesium 200 mg PO TID 03/05/17 08/02/18 Multivitamin [Men's Multi-Vitamin] 1 tab PO DAILY 03/05/17 08/02/18 Furosemide [Lasix] 20 mg PO BID 04/16/18 08/02/18 Spironolactone [Aldactone] 25 mg PO BID 04/16/18 08/02/18 Lactulose [Constulose] 20 gm PO BID 08/02/18 08/02/18 Lipase/Protease/Amylase [Zenpep Dr 1 cap PO AC-TID 08/02/18 08/02/18 25,000 Unit Capsule] Ondansetron [Zofran ODT] 4 mg PO BID PRN 08/02/18 08/02/18 Rifaximin [Xifaxan] 550 mg PO BID 08/02/18 08/02/18 Allergies Allergy/AdvReac Type Severity Reaction Status Date / Time No Known Allergies Allergy Verified 08/02/18 20:07 Review of Systems ROS Statement: Those systems with pertinent positive or pertinent negative responses have been documented in the HPI. ROS Other: All systems not noted in ROS Statement are negative. Past Medical History Past Medical History: GERD/Reflux, GI Bleed, Hypertension, Liver Disease, Thyroid Disorder Additional Past Medical History / Comment(s): Liver cirrhosis, portal htn, ETOH abuse, esophageal varicies, upper GI bleed, chronic thrombocytopenia, coagulopathy, pancytopenia, ascities, spinal stenosis: back/leg and feet pain, DDD, chronic back pain, neuropathy bilateral legs/feet, falls, bronchitis, past L rib fractures after fall off ladder,03-05-17 fall w/ head injury. 2010 [facility] [place], chronic pancreatitis History of Any Multi-Drug Resistant Organisms: None Reported Past Surgical History: Appendectomy, Joint Replacement Additional Past Surgical History / Comment(s): EGDs paracentesis, back injections, R thumb reattachment, circumcism. Past Anesthesia/Blood Transfusion Reactions: No Reported Reaction Additional Past Anesthesia/Blood Transfusion Reaction / Comment(s): Pt has received blood without reaction. Past Psychological History: Depression Smoking Status: Current every day smoker Past Alcohol Use History: Heavy Past Drug Use History: None Reported - Past Family History Father Family Medical History: Unable to Obtain Additional Family Medical History / Comment(s): Pt does not know his father's medical hx. Mother Family Medical History: No Reported History Additional Family Medical History / Comment(s): Mother is healthy. General Exam - General Exam Comments Initial Comments: Constitutional: NAD, AOX3, Pt has pleasant affect. HEENT: NC/AT, trachea midline, neck supple, no lymphadenopathy. Posterior pharynx non erythematous, without exudates. External ears appear normal, without discharge. Mucous membranes moist. Eyes PERRLA, EOM intact. There is no scleral icterus. No pallor noted. Cardiopulmonary: RRR, no murmurs, rubs or gallops, no JVD noted. Lungs CTAB in anterior and posterior maya. No peripheral edema. Abdominal exam: Abdomen soft and non-distended. Abdomen tender to palpation in all quadrants. [place] sign positive. Bowel sounds active in LLQ. No hepatosplenomegaly. No ecchymosis Neuro: CN II-XII grossly intact. No nuchal rigidity. No raccon eyes, no magdaleno sign, no hemotympanum. No cervical spinal tenderness. MSK: No posterior calf tenderness bilaterally, homans sign negative bilaterally. Posterior tibialis and radial pulse +2 bilaterally. Sensation intact in upper and lower extremities. Full active ROM in upper and lower extremities, 5/5 stregnth. Limitations: no limitations Course Vital Signs 08/02/18 08/02/18 08/02/18 20:00 21:08 23:46 Temperature 98.8 F Pulse Rate 93 103 H 76 Respiratory 20 18 18 Rate Blood Pressure 87/74 123/83 O2 Sat by Pulse 97 97 Oximetry 08/03/18 01:24 Temperature 99.2 F Pulse Rate 97 Respiratory 20 Rate Blood Pressure 145/87 O2 Sat by Pulse 98 Oximetry Medical Decision Making - Medical Decision Making 42-year-old male patient past medical history of liver cirrhosis, hypertension, occult dependency presents to ED for abdominal pain. Patient for status of abdominal pain. Patient describes his abdominal pain as diffuse throughout his abdomen. Patient states that this is baseline. Patient was that he has had this pain for greater than 3 months. Patient denies any chest pain shortness of breath. Patient does report nausea and vomiting. Patient denies any other complaints. Patient vital signs stable, afebrile. Physical exam displays: Abdomen soft and non-distended. Abdomen tender to palpation in all quadrants. [place] sign positive. Laboratory investigations displayed evidence of 36. This is baseline for patient. Coagulation studies revealed mildly elevated INR 1.6. Bilirubin elevated 4.9. Lactic acid elevated at 4.2. UA negative. Ammonia elevated at 59. This is slightly elevated from baseline of patient. Alcohol elevated at 201. CMP also displayed a cirrhotic liver, dilated, bile duct to 1.1 cm. Ultrasound of gallbladder displayed a borderline thickened gallbladder wall. In the dilated, bile duct to 1.3 cm. No CBD stones seen. Patient will be admitted for further evaluation and surgery consult to rule out acute cholecystitis. Case discussed with Dr. Kothari. - Lab Data Result diagrams: 08/02/18 21:03 08/02/18 21:03 Lab Results 08/02/18 08/02/18 08/02/18 Range/Units 21:03 21:03 21:03 WBC 4.4 (3.8-10.6) k/uL RBC 4.31 (4.30-5.90) m/uL Hgb 12.6 L (13.0-17.5) gm/dL Hct 38.8 L (39.0-53.0) % MCV 89.9 (80.0-100.0) fL MCH 29.3 (25.0-35.0) pg MCHC 32.6 (31.0-37.0) g/dL RDW 14.9 (11.5-15.5) % Plt Count 36 L (150-450) k/uL Neutrophils % 75 % Lymphocytes % 16 % Monocytes % 6 % Eosinophils % 2 % Basophils % 1 % Neutrophils # 3.3 (1.3-7.7) k/uL Lymphocytes # 0.7 L (1.0-4.8) k/uL Monocytes # 0.3 (0-1.0) k/uL Eosinophils # 0.1 (0-0.7) k/uL Basophils # 0.0 (0-0.2) k/uL Manual Slide Review Performed Poikilocytosis (manual Present Anisocytosis (manual) Present PT (9.0-12.0) sec INR (<1.2) APTT (22.0-30.0) sec Sodium 147 H (137-145) mmol/L Potassium 3.8 (3.5-5.1) mmol/L Chloride 115 H (98-107) mmol/L Carbon Dioxide 20 L (22-30) mmol/L Anion Gap 12 mmol/L BUN 11 (9-20) mg/dL Creatinine 1.15 (0.66-1.25) mg/dL Est GFR (CKD-EPI)AfAm >90 (>60 ml/min/1.73 sqM) Est GFR (CKD-EPI)NonAf 79 (>60 ml/min/1.73 sqM) Glucose 147 H (74-99) mg/dL Lactic Ac Sepsis Rflx Plasma Lactic Acid Reji 4.2 H* (0.7-2.0) mmol/L Calcium 8.5 (8.4-10.2) mg/dL Total Bilirubin 4.9 H (0.2-1.3) mg/dL AST 57 (17-59) U/L ALT 21 (21-72) U/L Alkaline Phosphatase 96 (38-126) U/L Ammonia (<30) umol/L Total Protein 7.3 (6.3-8.2) g/dL Albumin 3.7 (3.5-5.0) g/dL Lipase 210 (23-300) U/L Urine Color Urine Appearance (Clear) Urine pH (5.0-8.0) Ur Specific [place] (1.001-1.035) Urine Protein (Negative) Urine Glucose (UA) (Negative) Urine Ketones (Negative) Urine Blood (Negative) Urine Nitrite (Negative) Urine Bilirubin (Negative) Urine Urobilinogen (<2.0) mg/dL Ur Leukocyte Esterase (Negative) Serum Alcohol mg/dL 08/02/18 08/02/18 08/02/18 Range/Units 21:03 21:25 22:10 WBC (3.8-10.6) k/uL RBC (4.30-5.90) m/uL Hgb (13.0-17.5) gm/dL Hct (39.0-53.0) % MCV (80.0-100.0) fL MCH (25.0-35.0) pg MCHC (31.0-37.0) g/dL RDW (11.5-15.5) % Plt Count (150-450) k/uL Neutrophils % % Lymphocytes % % Monocytes % % Eosinophils % % Basophils % % Neutrophils # (1.3-7.7) k/uL Lymphocytes # (1.0-4.8) k/uL Monocytes # (0-1.0) k/uL Eosinophils # (0-0.7) k/uL Basophils # (0-0.2) k/uL Manual Slide Review Poikilocytosis (manual Anisocytosis (manual) PT 16.4 H (9.0-12.0) sec INR 1.6 H (<1.2) APTT 29.0 (22.0-30.0) sec Sodium (137-145) mmol/L Potassium (3.5-5.1) mmol/L Chloride (98-107) mmol/L Carbon Dioxide (22-30) mmol/L Anion Gap mmol/L BUN (9-20) mg/dL Creatinine (0.66-1.25) mg/dL Est GFR (CKD-EPI)AfAm (>60 ml/min/1.73 sqM) Est GFR (CKD-EPI)NonAf (>60 ml/min/1.73 sqM) Glucose (74-99) mg/dL Lactic Ac Sepsis Rflx Y Plasma Lactic Acid Reji (0.7-2.0) mmol/L Calcium (8.4-10.2) mg/dL Total Bilirubin (0.2-1.3) mg/dL AST (17-59) U/L ALT (21-72) U/L Alkaline Phosphatase (38-126) U/L Ammonia 59 H (<30) umol/L Total Protein (6.3-8.2) g/dL Albumin (3.5-5.0) g/dL Lipase (23-300) U/L Urine Color Urine Appearance (Clear) Urine pH (5.0-8.0) Ur Specific [place] (1.001-1.035) Urine Protein (Negative) Urine Glucose (UA) (Negative) Urine Ketones (Negative) Urine Blood (Negative) Urine Nitrite (Negative) Urine Bilirubin (Negative) Urine Urobilinogen (<2.0) mg/dL Ur Leukocyte Esterase (Negative) Serum Alcohol mg/dL 08/02/18 08/02/18 Range/Units 22:10 23:45 WBC (3.8-10.6) k/uL RBC (4.30-5.90) m/uL Hgb (13.0-17.5) gm/dL Hct (39.0-53.0) % MCV (80.0-100.0) fL MCH (25.0-35.0) pg MCHC (31.0-37.0) g/dL RDW (11.5-15.5) % Plt Count (150-450) k/uL Neutrophils % % Lymphocytes % % Monocytes % % Eosinophils % % Basophils % % Neutrophils # (1.3-7.7) k/uL Lymphocytes # (1.0-4.8) k/uL Monocytes # (0-1.0) k/uL Eosinophils # (0-0.7) k/uL Basophils # (0-0.2) k/uL Manual Slide Review Poikilocytosis (manual Anisocytosis (manual) PT (9.0-12.0) sec INR (<1.2) APTT (22.0-30.0) sec Sodium (137-145) mmol/L Potassium (3.5-5.1) mmol/L Chloride (98-107) mmol/L Carbon Dioxide (22-30) mmol/L Anion Gap mmol/L BUN (9-20) mg/dL Creatinine (0.66-1.25) mg/dL Est GFR (CKD-EPI)AfAm (>60 ml/min/1.73 sqM) Est GFR (CKD-EPI)NonAf (>60 ml/min/1.73 sqM) Glucose (74-99) mg/dL Lactic Ac Sepsis Rflx Plasma Lactic Acid Reji (0.7-2.0) mmol/L Calcium (8.4-10.2) mg/dL Total Bilirubin (0.2-1.3) mg/dL AST (17-59) U/L ALT (21-72) U/L Alkaline Phosphatase (38-126) U/L Ammonia (<30) umol/L Total Protein (6.3-8.2) g/dL Albumin (3.5-5.0) g/dL Lipase (23-300) U/L Urine Color Yellow Urine Appearance Clear (Clear) Urine pH 6.5 (5.0-8.0) Ur Specific [place] >1.050 H (1.001-1.035) Urine Protein Trace H (Negative) Urine Glucose (UA) Negative (Negative) Urine Ketones Negative (Negative) Urine Blood Negative (Negative) Urine Nitrite Negative (Negative) Urine Bilirubin Negative (Negative) Urine Urobilinogen 8.0 (<2.0) mg/dL Ur Leukocyte Esterase Negative (Negative) Serum Alcohol 201 H* mg/dL Disposition Clinical Impression: Abdominal pain Disposition: ADMITTED IP TO THIS HOSP Condition: Serious Is patient prescribed a controlled substance at d/c from ED?: No Referrals: Pablo Linn MD [Primary Care Provider] - 1-2 days
[2018-08-03] MEDS ORDERED: SODIUM CHLORIDE 0.9% 1,000 ML IV STA (02:02)
[2018-08-03] MEDS ORDERED: cefTRIAXone IN SWFI 1,000 MG/10 ML SYRINGE IVP STA (02:22)
[2018-08-03] MEDS ORDERED: THIAMINE 100 MG/ML 2 ML VIAL IM STA (02:28)
[2018-08-03] MEDS ORDERED: LORazepam 2 MG/ML INJ IV PRN ×3 (02:28)
[2018-08-03] MEDS ORDERED: MORPHINE SULFATE 4 MG/ML SYRINGE IV PRN (03:42)
[2018-08-03] MEDS ORDERED: NALOXONE 0.4 MG/ML 1 ML VIAL IV PRN (03:42)
[2018-08-03] MEDS: SODIUM CHLORIDE 0.9% 1,000 ML IV SCH ×3 (05:07→20:40)
[2018-08-03] MEDS: MORPHINE SULFATE 4 MG/ML SYRINGE IVP PRN ×5 (09:35→23:31)
[2018-08-03 11:13] LABS: ALT 21 U/L (21-72); AST 50 U/L (17-59); African American GFR (CKD) >90 (>60 ml/min/1.73 sqM); Albumin 3.1 g/dL (3.5-5.0); Alkaline Phosphatase 79 U/L (38-126); Anion Gap 10 mmol/L; Blood Urea Nitrogen 8 mg/dL (9-20); Calcium 7.7 mg/dL (8.4-10.2); Carbon Dioxide 17 mmol/L (22-30); Chloride 114 mmol/L (98-107); Glucose 99 mg/dL (74-99); Potassium 3.6 mmol/L (3.5-5.1); Sodium 141 mmol/L (137-145); Total Bilirubin 3.9 mg/dL (0.2-1.3); Total Protein 6.4 g/dL (6.3-8.2)
[2018-08-03] MEDS: ONDANSETRON 4 MG/2 ML VIAL IVP PRN ×2 (12:40→17:50)
[2018-08-03] MEDS ORDERED: SODIUM CHLORIDE 0.9% 1,000 ML IV ONE (13:12)
--- NOTE | 2018-08-03 13:27 | P.GSHP ---
History of Present Illness H&P Date: 08/03/18 Chief Complaint: abdominal pain CHIEF COMPLAINT: Abdominal pain HISTORY OF PRESENT ILLNESS: 42-year-old male who presented to emergency room with a chief complaint of abdominal pain. Patient reports he has been having generalized pain, worse on the right side and epigastric region. Patient states he has been having pain for months but over the past couple days it became more intense. He reports he has been trying to abstain from alcohol but the pain got so bad he drank half a pint of peppermint schnapps yesterday. He reports nausea. Denies episodes of vomiting at home. Denies fever or chills. Denies diarrhea or constipation. Patient follows with Dr. Smart outpatient secondary to his liver cirrhosis and chronic pancreatitis. Patient underwent EGD on 04/20/2017 revealing gastritis consistent with portal gastropathy but no gastric or esophageal varices or active bleeding. PAST MEDICAL HISTORY: See list. PAST SURGICAL HISTORY: See list. SOCIAL HISTORY: No illicit drug use. History of alcohol abuse. REVIEW OF SYSTEMS: CONSTITUTIONAL: Denies fever or chills. HEENT: Denies blurred vision, vision changes, or eye pain. Denies hemoptysis CARDIOVASCULAR: Denies chest pain or pressure. RESPIRATORY: No shortness of breath. GASTROINTESTINAL: Refer to HPI for pertinent findings HEMATOLOGIC: Denies bleeding disorders. GENITOURINARY: Denies any blood in urine. SKIN: Denies pruitis. Denies rash. PHYSICAL EXAM: VITAL SIGNS: Reviewed. GENERAL: Well-developed in no acute distress. HEENT: No sclera icterus. Extraocular movements grossly intact. Moist buccal mucosa. Head is atraumatic, normocephalic. ABDOMEN: Soft. Nondistended. Tenderness throughout, worse on right upper and lower quadrant and epigastric region NEUROLOGIC: Alert and oriented. Cranial nerves II through XII grossly intact. LABORATORY DATA: Laboratory data on admission reveals white count 4.4. Hemoglobin 12.6. Platelet count 36. INR 1.6. Sodium 147. Potassium 3.8. Lactic acid 4.2. Bilirubin 4.9. IMAGIN. CT abdomen and pelvis: Cirrhotic liver, dilated common bile duct at 1.17. No obstructing stones were seen. 2. Gallbladder ultrasound: Cirrhotic liver, borderline thickened gallbladder wall. No stones. Severely dilated common bile duct at 1.3 cm. ASSESSMENT: 1. Acute on chronic abdominal pain 2. Liver cirrhosis with portal hypertension 3. Acute alcohol intoxication 4. History of alcohol abuse 5. History of GI bleeding from esophageal varices requiring banding 6. Lactic acidosis 7. Chronic thrombocytopenia 8. Hyperbilirubinemia 9. Elevated ammonia levels PLAN: 1. Clear liquid diet as tolerated 2. Continue maintenance IV fluids. 3. 1L fluid bolus 4. Resume home meds 5. Consult PCP for medical management 6. No surgical intervention recommended at this time 7. Consult placed to social work per patient request for further recommendations regarding resources for alcohol abstinence Nurse practitioner note has been reviewed by physician. Signing provider agrees with the documented findings, assessment, and plan of care. Past Medical History Past Medical History: GERD/Reflux, GI Bleed, Hypertension, Liver Disease, Thyroid Disorder Additional Past Medical History / Comment(s): Liver cirrhosis, portal htn, ETOH abuse, esophageal varicies, upper GI bleed, chronic thrombocytopenia, coagulopathy, pancytopenia, ascities, spinal stenosis: back/leg and feet pain, DDD, chronic back pain, neuropathy bilateral legs/feet, falls, bronchitis, past L rib fractures after fall off ladder,03-05-17 fall w/ head injury. 2010 Guillian [place], chronic pancreatitis History of Any Multi-Drug Resistant Organisms: None Reported Past Surgical History: Appendectomy, Joint Replacement Additional Past Surgical History / Comment(s): EGDs paracentesis, back injections, R thumb reattachment, circumcism. Past Anesthesia/Blood Transfusion Reactions: No Reported Reaction Additional Past Anesthesia/Blood Transfusion Reaction / Comment(s): Pt has received blood without reaction. Past Psychological History: Depression Additional Psychological History / Comment(s): Pt is on disability. He resides with his mother. He uses a cane to ambulate. He drives. Smoking Status: Current some day smoker Past Alcohol Use History: Daily, Occasional Additional Past Alcohol Use History / Comment(s): Patient is a smoker of a pack per day for 27 years. He denies any marijuana or street drug use. He does have history of heavy alcohol use with drinking up to a pint per day for 7 years but he currently is only drinking an occasional beer. He is on disability. He is currently living with his mother. He does have a dog in the home exposure to his daughter's cat. He uses a cane for ambulation. Past Drug Use History: None Reported - Past Family History Father Family Medical History: Unable to Obtain Additional Family Medical History / Comment(s): Pt does not know his father's medical hx. Mother Family Medical History: No Reported History Additional Family Medical History / Comment(s): Mother is healthy. Medications and Allergies Home Medications Medication Instructions Recorded Confirmed Type Levothyroxine Sodium [Synthroid] 25 mcg PO DAILY 05/07/16 08/02/18 History Pantoprazole Sodium [Protonix] 20 mg PO BID 01/02/17 08/02/18 History Magnesium 200 mg PO TID 03/05/17 08/02/18 History Multivitamin [Men's Multi-Vitamin] 1 tab PO DAILY 03/05/17 08/02/18 History Furosemide [Lasix] 20 mg PO BID 04/16/18 08/02/18 History Spironolactone [Aldactone] 25 mg PO BID 04/16/18 08/02/18 History Lactulose [Constulose] 20 gm PO BID 08/02/18 08/02/18 History Lipase/Protease/Amylase [Zenpep Dr 1 cap PO AC-TID 08/02/18 08/02/18 History 25,000 Unit Capsule] Ondansetron [Zofran ODT] 4 mg PO BID PRN 08/02/18 08/02/18 History Rifaximin [Xifaxan] 550 mg PO BID 08/02/18 08/02/18 History Allergies Allergy/AdvReac Type Severity Reaction Status Date / Time No Known Allergies Allergy Verified 08/02/18 20:07 Surgical - Exam Vital Signs Temp Pulse Resp BP Pulse Ox 98.8 F 93 20 87/74 97 08/02/18 20:00 08/02/18 20:00 08/02/18 20:00 08/02/18 20:00 08/02/18 20:00 Results - Labs 08/02/18 21:03 08/03/18 10:21 Abnormal Lab Results - Last 24 Hours (Table) 08/02/18 08/02/18 08/02/18 Range/Units 21:03 21:03 21:03 Hgb 12.6 L (13.0-17.5) gm/dL Hct 38.8 L (39.0-53.0) % Plt Count 36 L (150-450) k/uL Lymphocytes # 0.7 L (1.0-4.8) k/uL PT (9.0-12.0) sec INR (<1.2) Sodium 147 H (137-145) mmol/L Chloride 115 H (98-107) mmol/L Carbon Dioxide 20 L (22-30) mmol/L BUN (9-20) mg/dL Glucose 147 H (74-99) mg/dL Plasma Lactic Acid Reji 4.2 H* (0.7-2.0) mmol/L Calcium (8.4-10.2) mg/dL Total Bilirubin 4.9 H (0.2-1.3) mg/dL Ammonia (<30) umol/L Albumin (3.5-5.0) g/dL Ur Specific [place] (1.001-1.035) Urine Protein (Negative) Serum Alcohol mg/dL 08/02/18 08/02/18 08/02/18 Range/Units 21:03 22:10 22:10 Hgb (13.0-17.5) gm/dL Hct (39.0-53.0) % Plt Count (150-450) k/uL Lymphocytes # (1.0-4.8) k/uL PT 16.4 H (9.0-12.0) sec INR 1.6 H (<1.2) Sodium (137-145) mmol/L Chloride (98-107) mmol/L Carbon Dioxide (22-30) mmol/L BUN (9-20) mg/dL Glucose (74-99) mg/dL Plasma Lactic Acid Reji (0.7-2.0) mmol/L Calcium (8.4-10.2) mg/dL Total Bilirubin (0.2-1.3) mg/dL Ammonia 59 H (<30) umol/L Albumin (3.5-5.0) g/dL Ur Specific [place] (1.001-1.035) Urine Protein (Negative) Serum Alcohol 201 H* mg/dL 08/02/18 08/03/18 08/03/18 Range/Units 23:45 01:00 10:21 Hgb (13.0-17.5) gm/dL Hct (39.0-53.0) % Plt Count (150-450) k/uL Lymphocytes # (1.0-4.8) k/uL PT (9.0-12.0) sec INR (<1.2) Sodium (137-145) mmol/L Chloride 114 H (98-107) mmol/L Carbon Dioxide 17 L (22-30) mmol/L BUN 8 L (9-20) mg/dL Glucose (74-99) mg/dL Plasma Lactic Acid Reji 3.8 H* (0.7-2.0) mmol/L Calcium 7.7 L (8.4-10.2) mg/dL Total Bilirubin 3.9 H (0.2-1.3) mg/dL Ammonia (<30) umol/L Albumin 3.1 L (3.5-5.0) g/dL Ur Specific [place] >1.050 H (1.001-1.035) Urine Protein Trace H (Negative) Serum Alcohol mg/dL 08/03/18 Range/Units 12:27 Hgb (13.0-17.5) gm/dL Hct (39.0-53.0) % Plt Count (150-450) k/uL Lymphocytes # (1.0-4.8) k/uL PT (9.0-12.0) sec INR (<1.2) Sodium (137-145) mmol/L Chloride (98-107) mmol/L Carbon Dioxide (22-30) mmol/L BUN (9-20) mg/dL Glucose (74-99) mg/dL Plasma Lactic Acid Reji 2.9 H* (0.7-2.0) mmol/L Calcium (8.4-10.2) mg/dL Total Bilirubin (0.2-1.3) mg/dL Ammonia (<30) umol/L Albumin (3.5-5.0) g/dL Ur Specific [place] (1.001-1.035) Urine Protein (Negative) Serum Alcohol mg/dL Diabetes panel 08/02/18 08/03/18 Range/Units 21:03 10:21 Sodium 147 H 141 (137-145) mmol/L Potassium 3.8 3.6 (3.5-5.1) mmol/L Chloride 115 H 114 H (98-107) mmol/L Carbon Dioxide 20 L 17 L (22-30) mmol/L BUN 11 8 L (9-20) mg/dL Creatinine 1.15 0.90 (0.66-1.25) mg/dL Glucose 147 H 99 (74-99) mg/dL Calcium 8.5 7.7 L (8.4-10.2) mg/dL AST 57 50 (17-59) U/L ALT 21 21 (21-72) U/L Alkaline Phosphatase 96 79 (38-126) U/L Total Protein 7.3 6.4 (6.3-8.2) g/dL Albumin 3.7 3.1 L (3.5-5.0) g/dL Calcium panel 08/02/18 08/03/18 Range/Units 21:03 10:21 Calcium 8.5 7.7 L (8.4-10.2) mg/dL Albumin 3.7 3.1 L (3.5-5.0) g/dL Pituitary panel 08/02/18 08/03/18 Range/Units 21:03 10:21 Sodium 147 H 141 (137-145) mmol/L Potassium 3.8 3.6 (3.5-5.1) mmol/L Chloride 115 H 114 H (98-107) mmol/L Carbon Dioxide 20 L 17 L (22-30) mmol/L BUN 11 8 L (9-20) mg/dL Creatinine 1.15 0.90 (0.66-1.25) mg/dL Glucose 147 H 99 (74-99) mg/dL Calcium 8.5 7.7 L (8.4-10.2) mg/dL Adrenal panel 08/02/18 08/03/18 Range/Units 21:03 10:21 Sodium 147 H 141 (137-145) mmol/L Potassium 3.8 3.6 (3.5-5.1) mmol/L Chloride 115 H 114 H (98-107) mmol/L Carbon Dioxide 20 L 17 L (22-30) mmol/L BUN 11 8 L (9-20) mg/dL Creatinine 1.15 0.90 (0.66-1.25) mg/dL Glucose 147 H 99 (74-99) mg/dL Calcium 8.5 7.7 L (8.4-10.2) mg/dL Total Bilirubin 4.9 H 3.9 H (0.2-1.3) mg/dL AST 57 50 (17-59) U/L ALT 21 21 (21-72) U/L Alkaline Phosphatase 96 79 (38-126) U/L Total Protein 7.3 6.4 (6.3-8.2) g/dL Albumin 3.7 3.1 L (3.5-5.0) g/dL
[2018-08-03] MEDS: LACTULOSE 20 GM/30 ML CUP PO SCH ×2 (15:59→20:20)
[2018-08-03] MEDS: LIPASE 5,000/PROTEASE 17,000/AMYLASE 24,000 PO SCH ×2 (16:00→16:34)
[2018-08-03] MEDS: THIAMINE 100 MG TAB PO SCH ×2 (16:33→19:26)
[2018-08-03] MEDS: MAGNESIUM OXIDE 400 MG TAB PO SCH ×2 (16:34→20:40)
[2018-08-03] MEDS: PANTOPRAZOLE 40 MG TABLET PO SCH (19:26)
[2018-08-03] MEDS: RIFAXIMIN 550 MG TABLET PO SCH (20:40)
[2018-08-04] MEDS: MORPHINE SULFATE 4 MG/ML SYRINGE IVP PRN ×5 (01:37→19:50)
[2018-08-04 02:27] VITALS: RESP 17
[2018-08-04] MEDS: SODIUM CHLORIDE 0.9% 1,000 ML IV SCH ×4 (05:56→23:52)
[2018-08-04] MEDS: LEVOTHYROXINE 25 MCG TAB PO SCH (05:57)
[2018-08-04] MEDS: MULTIVITAMINS, THERA 1 EACH TAB PO SCH (08:05)
[2018-08-04] MEDS: THIAMINE 100 MG TAB PO SCH ×2 (08:05→17:33)
[2018-08-04] MEDS: PANTOPRAZOLE 40 MG TABLET PO SCH ×2 (08:05→17:34)
[2018-08-04] MEDS: RIFAXIMIN 550 MG TABLET PO SCH ×2 (08:05→21:03)
[2018-08-04] MEDS: MAGNESIUM OXIDE 400 MG TAB PO SCH ×3 (08:06→21:02)
[2018-08-04] MEDS: LIPASE 5,000/PROTEASE 17,000/AMYLASE 24,000 PO SCH ×3 (08:06→17:33)
[2018-08-04] MEDS: LACTULOSE 20 GM/30 ML CUP PO SCH ×2 (08:14→21:00)
[2018-08-04] MEDS: ONDANSETRON 4 MG/2 ML VIAL IVP PRN ×2 (08:25→17:34)
[2018-08-04] MEDS ORDERED: SODIUM CHLORIDE 0.9% 1,000 ML IV SCH (08:30)
[2018-08-04] MEDS ORDERED: MORPHINE SULFATE 4 MG/ML SYRINGE IVP PRN (09:11)
--- NOTE | 2018-08-04 09:49 | P.CONS ---
History of Present Illness - Reason for Consult Consult date: 08/04/18 Abdominal pain liver disease Requesting physician: Vinnie Jose - Chief Complaint Abdominal pain - History of Present Illness 42-year-old male patient of Dr. Smart history of alcohol liver cirrhosis, splenomegaly, alcohol pancreatitis, chronic thrombocytopenia previous esophageal varices portal hypertension admitted with abdominal pain. Patient drank peppermint schnapps prior to admission. Denies daily alcohol consumption. Abdominal pain in the upper abdomen and epigastric region. Denies hematemesis hematochezia melena. Afebrile. Total bilirubin 3.9. AST 50. ALT 21. AP 79. BUN 8. Creatinine 0.9. White count 4.4. Hemoglobin 12.6. Platelet 36,000. Lipase 210. HIDA scan scheduled today. Patient requesting discharge. EGD April 2018 gastritis consistent with portal gastropathy no evidence of esophageal varices or active bleeding. CT abdomen and pelvis no obstructing stones. CBD 1.1 cm. Features of chronic pancreatitis. Cirrhotic liver. Previous MRI liver April 2018 severe splenomegaly. Gallbladder large 103.7 cm suggestive of gallbladder dysfunction. No liver mass. Bile duct not dilated. No evidence of pancreatic mass. Review of Systems ReConstitutional: Denies fever, chills, sweats, weight gain, or loss. HEENT: Negative for migraines, blurred vision or loss, earaches, drainage, tinnitus, oral mucosal lesions, dysphagia, or odynophagia. Cardiac: Negative for chest pain, arrhythmias, or palpitation. Respiratory: Negative for shortness of breath, hemoptysis, cough, or sputum production. Gastrointestinal: See HPI for pertinent findings. Genitourinary: Negative for hematuria, urgency, frequency, polyuria, dysuria, or penile discharge. Musculoskeletal: Negative for muscle aches, swelling, arthritis, and arthralgias. Neurologic: Negative for stroke or TIA. Endocrine: Negative for thyroid problems. Skin: Negative for rash or itching. Psychiatric: Negative history for depression and anxietyle Past Medical History Past Medical History: GERD/Reflux, GI Bleed, Hypertension, Liver Disease, Thyroid Disorder Additional Past Medical History / Comment(s): Liver cirrhosis, portal htn, ETOH abuse, esophageal varicies, upper GI bleed, chronic thrombocytopenia, coagulopathy, pancytopenia, ascities, spinal stenosis: back/leg and feet pain, DDD, chronic back pain, neuropathy bilateral legs/feet, falls, bronchitis, past L rib fractures after fall off ladder,03-05-17 fall w/ head injury. 2010 [place], chronic pancreatitis History of Any Multi-Drug Resistant Organisms: None Reported Past Surgical History: Appendectomy, Joint Replacement Additional Past Surgical History / Comment(s): EGDs paracentesis, back inj ections, R thumb reattachment, circumcism. Past Anesthesia/Blood Transfusion Reactions: No Reported Reaction Additional Past Anesthesia/Blood Transfusion Reaction / Comm: Pt has received blood without reaction. Past Psychological History: Depression Additional Psychological History / Comment(s): Pt is on disability. He resides with his mother. He uses a cane to ambulate. He drives. Smoking Status: Current some day smoker Past Alcohol Use History: Daily, Occasional Additional Past Alcohol Use History / Comment(s): Patient is a smoker of a pack per day for 27 years. He denies any marijuana or street drug use. He does have history of heavy alcohol use with drinking up to a pint per day for 7 years but he currently is only drinking an occasional beer. He is on disability. He is currently living with his mother. He does have a dog in the home exposure to his daughter's cat. He uses a cane for ambulation. Past Drug Use History: None Reported - Past Family History Father Family Medical History: Unable to Obtain Additional Family Medical History / Comment(s): Pt does not know his father's medical hx. Mother Family Medical History: No Reported History Additional Family Medical History / Comment(s): Mother is healthy. Medications and Allergies Home Medications Medication Instructions Recorded Confirmed Type Levothyroxine Sodium [Synthroid] 25 mcg PO DAILY 05/07/16 08/02/18 History Pantoprazole Sodium [Protonix] 20 mg PO BID 01/02/17 08/02/18 History Magnesium 200 mg PO TID 03/05/17 08/02/18 History Multivitamin [Men's Multi-Vitamin] 1 tab PO DAILY 03/05/17 08/02/18 History Furosemide [Lasix] 20 mg PO BID 04/16/18 08/02/18 History Spironolactone [Aldactone] 25 mg PO BID 04/16/18 08/02/18 History Lactulose [Constulose] 20 gm PO BID 08/02/18 08/02/18 History Lipase/Protease/Amylase [Zenpep Dr 1 cap PO AC-TID 08/02/18 08/02/18 History 25,000 Unit Capsule] Ondansetron [Zofran ODT] 4 mg PO BID PRN 08/02/18 08/02/18 History Rifaximin [Xifaxan] 550 mg PO BID 08/02/18 08/02/18 History Allergies Allergy/AdvReac Type Severity Reaction Status Date / Time No Known Allergies Allergy Verified 08/02/18 20:07 Physical Exam Vitals: Vital Signs Temp Pulse Resp BP Pulse Ox 08/04/18 07:09 98.2 F 91 132/79 96 08/04/18 01:34 98.6 F 73 17 124/80 96 08/03/18 20:00 97.6 F 98 16 137/83 95 08/03/18 15:00 98.2 F 75 16 127/80 96 Intake and Output 08/03/18 08/04/18 08/04/18 22:59 06:59 14:59 Output Total 100 Balance -100 Output: Emesis 100 Other: Voiding Method Toilet # Voids 1 General appearance: The patient is alert, oriented, in no acute distress. Mildly jaundiced. HET: Head is normocephalic and atraumatic. Pupils are equal and reactive. Mild sclerae icterus. Oropharynx is clear without lesions. Neck: Supple without lymphadenopathy. Trachea midline. Heart: S1 S2. Regular rate and rhythm. Lungs: No crackles or wheezes are heard. Abdomen: Soft, tenderness to the right upper quadrant midepigastrium with bowel sounds. No peritoneal signs. No palpable organomegaly or masses. Extremities: Normal skin color and turgor. No cyanosis, rash, ulceration, clubbing, or edema. Radial and pedal pulses are 2/4 bilaterally. Neurological: No focal deficits. Strength and sensation are grossly intact. Results CBC & Chem 7: 08/02/18 21:03 08/03/18 10:21 Labs: Abnormal Lab Results - Last 24 Hours (Table) 08/03/18 08/03/18 Range/Units 10:21 12:27 Chloride 114 H (98-107) mmol/L Carbon Dioxide 17 L (22-30) mmol/L BUN 8 L (9-20) mg/dL Plasma Lactic Acid Reji 2.9 H* (0.7-2.0) mmol/L Calcium 7.7 L (8.4-10.2) mg/dL Total Bilirubin 3.9 H (0.2-1.3) mg/dL Albumin 3.1 L (3.5-5.0) g/dL CT scan - abdomen: report reviewed (Dr. Augustine) Assessment and Plan (1) Abdominal pain Narrative/Plan: 42-year-old male admitted with epigastric right upper quadrant abdominal pain without bleeding or fever with underlying compensated alcohol liver cirrhosis po rtal hypertension. Current Visit: Yes Status: Acute Code(s): R10.9 - UNSPECIFIED ABDOMINAL PAIN SNOMED Code(s): 14760067 (2) Alcoholic cirrhosis of liver Current Visit: No Status: Acute Code(s): K70.30 - ALCOHOLIC CIRRHOSIS OF LIVER WITHOUT ASCITES SNOMED Code(s): 277578184 (3) Thrombocytopenia Current Visit: No Status: Acute Code(s): D69.6 - THROMBOCYTOPENIA, UNSPECIFIED SNOMED Code(s): 977669188 Plan: 1. HIDA scan per general surgery. Protonix 40 mg twice daily. Patient has office visit scheduled next week with Dr. Smart. Alcohol abstinence reinforced. Discharge per surgery. Thank you for this kind referral and the opportunity to participate in the care of your patient. This consultation was discussed with Dr. Augustine. The impression and plan of care have been directed as dictated.
--- NOTE | 2018-08-04 12:04 | P.CONS ---
History of Present Illness - Reason for Consult Consult date: 08/04/18 Medical management - History of Present Illness This is a 42-year-old male patient of Dr. Sarmad Linn. He has h istory of alcohol liver cirrhosis with portal hypertension and previous GI bleeding, hypertension and gastritis, pancreatitis, spinal stenosis and peripheral neuropathy. Patient also has chronic back pain and was under the care of Dr. Lagunas but violated pain contract and no longer seen by mark jacobs. He is also known to Dr. Smart from previous EGDs in the past. April 20 patient underwent EGD with Dr. Smart that revealed gastritis consistent with portal gastropathy but no gastric or esophageal varices or active bleeding. He has had multipe admissions for acute GI bleed in Jan 2016, Mar 2016 and Mar 2017. His most recent admission was for right leg abscess requiring I&D in December 2017. The patient complains of abdominal pain mostly along the right side of his abdomen and epigastric area. He has had this pain for several months that seems to be getting worse. He states he had to drink half a pint of schnapps to alleviate the pain. No fever no chills. No diarrhea or consti pation. No vomiting. Patient came in to the hospital and underwent CT of the abdomen and pelvis that showed cirrhotic liver, dilated common bile duct at 1.17. No obstructing stones seen. Gallbladder ultrasound showed cirrhotic liver, borderline thickened, bladder wall. No stones. Severely dilated common bile duct at 1.3 cm. Patient is scheduled for HIDA scan today. The patient is continuing on morphine every 3 hours requesting on the hour which will be transitioned over to tramadol and IV morphine changed to formula grams every 8 hours. Patient also relates that he wants to get into rehab to stop drinking. Dr. Jose is planning on possible discharge later today. Review of Systems All systems: negative Constitutional: Reports poor appetite, Denies chills, Denies fatigue, Denies fever, Denies weakness Eyes: denies blurred vision, denies pain Ears, nose, mouth and throat: Denies headache, Denies nasal congestion, Denies nasal discharge, Denies sore throat, Denies vertigo Cardiovascular: Denies chest pain, Denies decreased exercise tolerance, Denies dyspnea on exertion, Denies edema, Denies lightheadedness, Denies shortness of breath, Denies syncope Respiratory: Denies cough, Denies cough with sputum, Denies dyspnea, Denies excessive sputum, Denies hemoptysis, Denies home oxygen, Denies wheezing Gastrointestinal: Reports abdominal pain, Reports loss of appetite, Denies constipation, Denies diarrhea, Denies jaundice, Denies nausea, Denies vomiting Genitourinary: Denies urinary frequency, Denies urinary hesitancy, Denies urinary retention Musculoskeletal: Reports frequent falls, Denies gait dysfunction, Denies muscle weakness, Denies myalgias Integumentary: Denies pruritus, Denies rash, Denies wounds Neurological: Denies numbness, Denies weakness Psychiatric: Denies anxiety, Denies depression Endocrine: Denies fatigue, Denies weight change Past Medical History Past Medical History: GERD/Reflux, GI Bleed, Hypertension, Liver Disease, Thyroid Disorder Additional Past Medical History / Comment(s): Liver cirrhosis, portal htn, ETOH abuse, esophageal varicies, upper GI bleed, chronic thrombocytopenia, coagulopathy, pancytopenia, ascities, spinal stenosis: back/leg and feet pain, DDD, chronic back pain, neuropathy bilateral legs/feet, falls, bronchitis, past L rib fractures after fall off ladder,03-05-17 fall w/ head injury. 2010 [facility] [place], chronic pancreatitis History of Any Multi-Drug Resistant Organisms: None Reported Past Surgical History: Appendectomy, Joint Replacement Additional Past Surgical History / Comment(s): EGDs paracentesis, back injections, R thumb reattachment, circumcism. Past Anesthesia/Blood Transfusion Reactions: No Reported Reaction Additional Past Anesthesia/Blood Transfusion Reaction / Comm: Pt has received blood without reaction. Past Psychological History: Depression Additional Psychological History / Comment(s): Pt is on disability. He resides with his mother. He uses a cane to ambulate. He drives. Smoking Status: Current some day smoker Past Alcohol Use History: Daily, Occasional Additional Past Alcohol Use History / Comment(s): Patient is a smoker of a pack per day for 27 years. He denies any marijuana or street drug use. He does have history of heavy alcohol use with drinking up to a pint per day for 7 years but he currently is only drinking an occasional beer. He is on disability. He is currently living with his mother. He does have a dog in the home exposure to his daughter's cat. He uses a cane for ambulation. Past Drug Use History: None Reported - Past Family History Father Family Medical History: Unable to Obtain Additional Family Medical History / Comment(s): Pt does not know his father's medical hx. Mother Family Medical History: No Reported History Additional Family Medical History / Comment(s): Mother is healthy. Medications and Allergies Home Medications Medication Instructions Recorded Confirmed Type Levothyroxine Sodium [Synthroid] 25 mcg PO DAILY 05/07/16 08/02/18 History Pantoprazole Sodium [Protonix] 20 mg PO BID 01/02/17 08/02/18 History Magnesium 200 mg PO TID 03/05/17 08/02/18 History Multivitamin [Men's Multi-Vitamin] 1 tab PO DAILY 03/05/17 08/02/18 History Furosemide [Lasix] 20 mg PO BID 04/16/18 08/02/18 History Spironolactone [Aldactone] 25 mg PO BID 04/16/18 08/02/18 History Lactulose [Constulose] 20 gm PO BID 08/02/18 08/02/18 History Lipase/Protease/Amylase [Zenpep Dr 1 cap PO AC-TID 08/02/18 08/02/18 History 25,000 Unit Capsule] Ondansetron [Zofran ODT] 4 mg PO BID PRN 08/02/18 08/02/18 History Rifaximin [Xifaxan] 550 mg PO BID 08/02/18 08/02/18 History Allergies Allergy/AdvReac Type Severity Reaction Status Date / Time No Known Allergies Allergy Verified 08/02/18 20:07 Physical Exam Vitals: Vital Signs Temp Pulse Resp BP Pulse Ox 08/04/18 07:09 98.2 F 91 132/79 96 08/04/18 01:34 98.6 F 73 17 124/80 96 08/03/18 20:00 97.6 F 98 16 137/83 95 08/03/18 15:00 98.2 F 75 16 127/80 96 Intake and Output 08/03/18 08/04/18 08/04/18 22:59 06:59 14:59 Output Total 100 Balance -100 Output: Emesis 100 Other: Voiding Method Toilet # Voids 1 General appearance: average body habitus, cooperative, no distress - EENT Eyes: EOMI, PERRLA, no photophobia, poor dentition, no ptosis, scleral icterus ENT: hearing grossly normal, normal oropharynx Ears: bilateral: normal - Neck Neck: lymphadenopathy Carotids: bilateral: upstroke normal - Respiratory Respiratory: bilateral: CTA, negative: diminished, dullness, rales, rhonchi, wheezing - Cardiovascular Rhythm: regular Heart sounds: normal: S1, S2 Abnormal Heart Sounds: no systolic murmur, no diastolic murmur, no rub, no click - Gastrointestinal General gastrointestinal: decreased bowel sounds, distended, soft, tenderness Localized gastrointestinal: tender: diffuse, epigastric (worse), guarding: diffuse - Integumentary Integumentary: no cyanotic, jaundiced, no rash, no ulcer - Neurologic Neurologic: CNII-XII intact - Musculoskeletal Musculoskeletal: generalized weakness, large open wound to the right anterior thigh area with bloody pustulant drainage. Very foul order. There is surrounding erythema. - Psychiatric Psychiatric: A&O x's 3, appropriate affect Results CBC & Chem 7: 08/02/18 21:03 08/03/18 10:21 Labs: Abnormal Lab Results - Last 24 Hours (Table) 08/03/18 08/03/18 Range/Units 10:21 12:27 Chloride 114 H (98-107) mmol/L Carbon Dioxide 17 L (22-30) mmol/L BUN 8 L (9-20) mg/dL Plasma Lactic Acid Reji 2.9 H* (0.7-2.0) mmol/L Calcium 7.7 L (8.4-10.2) mg/dL Total Bilirubin 3.9 H (0.2-1.3) mg/dL Albumin 3.1 L (3.5-5.0) g/dL Assessment and Plan Plan: 1. Abdominal pain with underlying alcoholic liver cirrhosis and portal hypertension. HIDA scan scheduled for this afternoon. Pain medication adjusted to prepare him for discharge. GI consult was admitted. 2. History of alcoholic liver disease with portal hypertension and previous episodes of acute GI bleed with acute blood loss anemia resulting in multiple hospitalizations for GI bleeding from esophageal varices status post banding. Patient is chronically on Aldactone 25 mg twice daily, Xifaxan 550 mg twice daily, Protonix 20 mg twice daily, lactulose 20 mg twice daily, Lasix 20 mg twice daily. 3. Chronic thrombocytopenia secondary to chronic EtOH related bone marrow damage and portal hypertension causing splenic sequestration. Patient follows with hematology 4. Spinal stenosis with peripheral neuropathy. 5. History of pancreatitis. 6. Tobacco use and dependence. 7. Hypothyroidism. Continue levothyroxine 25 g daily. 8. GI prophylaxis. Continue Protonix 9. DVT prophylaxis. No heparin due to thrombocytopenia. SCDs and ANDREEA hose and early ambulation. Discharge plan: Home Impression and plan of care have been directed as dictated by the signing physician. Giovana Kathleen nurse practitioner acting as scribe for signing physician.
--- NOTE | 2018-08-04 12:19 | P.PN ---
Subjective Progress Note Date: 08/04/18 CHIEF COMPLAINT: Abdominal pain HISTORY OF PRESENT ILLNESS: Patient examined at the bedside. Reports abdominal pain is improving. Tolerating small amounts of clear liquids. Vital signs remain stable. PHYSICAL EXAM: VITAL SIGNS: Reviewed. GENERAL: Well-developed in no acute distress. HEENT: No sclera icterus. Extraocular movements grossly intact. Moist buccal mucosa. Head is atraumatic, normocephalic. ABDOMEN: Soft. Nondistended. Tenderness to epigastric region. NEUROLOGIC: Alert and oriented. Cranial nerves II through XII grossly intact. IMAGIN. CT abdomen and pelvis: Cirrhotic liver, dilated common bile duct at 1.17. No obstructing stones were seen. 2. Gallbladder ultrasound: Cirrhotic liver, borderline thickened gallbladder wall. No stones. Severely dilated common bile duct at 1.3 cm. ASSESSMENT: 1. Acute on chronic abdominal pain 2. Liver cirrhosis with portal hypertension 3. Acute alcohol intoxication 4. History of alcohol abuse 5. History of GI bleeding from esophageal varices requiring banding 6. Lactic acidosis 7. Chronic thrombocytopenia 8. Hyperbilirubinemia 9. Elevated ammonia levels PLAN: 1. Clear liquid diet as tolerated 2. Continue maintenance IV fluids. Continue Zofran. 3. Dr. Herrera on consult for medical management. Pain regimen adjusted per medicine team. 4. HIDA scan ordered. Await results 5. Possible discharge home this afternoon Nurse practitioner note has been reviewed by physician. Signing provider agrees with the documented findings, assessment, and plan of care. Objective - Vital Signs Vital signs: Vital Signs Temp 98.2 F 08/04/18 07:09 Pulse 91 08/04/18 07:09 Resp 17 08/04/18 01:34 BP 132/79 08/04/18 07:09 Pulse Ox 96 08/04/18 07:09 Intake & Output 08/03/18 08/04/18 08/04/18 18:59 06:59 18:59 Output Total 200 Balance -200 Output: Emesis 200 Other: Voiding Method Toilet # Voids 2 1 - Labs CBC & Chem 7: 08/02/18 21:03 08/03/18 10:21 Labs: Abnormal Lab Results - Last 24 Hours (Table) 08/03/18 Range/Units 12:27 Plasma Lactic Acid Reji 2.9 H* (0.7-2.0) mmol/L
--- NOTE | 2018-08-04 14:03 | NM ---
EXAMINATION TYPE: NM hepatobiliary w CCK DATE OF EXAM: 08/04/2018 COMPARISON: Ultrasound gallbladder 08/03/2018, CT abdomen pelvis 08/02/2018, liver MRI 04/21/2018 and live r MRI 04/21/2018 HISTORY: Abdominal pain TECHNIQUE: After the intravenous administration of 4.4 mCi Tc 99m Mebrofenin hepatobiliary scintigrap hy is performed. Immediate images post injection. FINDINGS: There is satisfactory initial accumulation of tracer by the liver. The gallbladder is visualized wit hin 42 minutes. The small bowel activity is noted within 24 minutes. At one hour CCK was administer ed, patient was injected with 1.8 mcg of Kinevac, and gallbladder ejection fraction is calculated at 51 %, in the normal range. Therefore there is no scintigraphic evidence of cystic or common bile du ct obstruction to suggest acute cholecystitis or gallbladder dyskinesia. IMPRESSION: Exam is within normal limits. CT scan shows some questionable soft tissue density at dis kavita common bile duct, coronal image #40, axial image 33 not seen on prior liver MRI
--- NOTE | 2018-08-04 16:15 | P.PN ---
Progress Note - Text Progress Note Date: 08/04/18 HIDA scan reviewed; EF reported as normal however soft tissue density versus possible CBD stone. MRCP ordered. Tentative ERCP tomorrow w/ Dr. Smart pending results. CBC/CMP in am. Transfusion of platelets prior to ERCP.
[2018-08-04] MEDS: traMADol 50 MG TAB PO PRN ×2 (17:33→23:52)
--- NOTE | 2018-08-04 19:01 | MR ---
EXAMINATION TYPE: MR MRCP DATE OF EXAM: 08/04/2018 COMPARISON: None HISTORY: Density at distal common bile duct, abdominal pain Standard multiplanar, multisequence MRI departmental protocol Multiplanar, multisequence images of the abdomen were acquired. Diffusion weighted imaging was perfor med. FINDINGS: Spleen is enlarged and measures 17 cm. Liver shows no focal defect. Gallbladder is distend ed and measures 4 cm. I see no filling defects in the gallbladder. Pancreatic duct is not dilated. Th ere is no sign of pancreatic mass. There is dilated common bile duct that measures up to 1.5 cm. I se e no filling defects within the common bile duct. The intrahepatic bile ducts are not dilated. There is no sign of ascites. There is no sign of pleural effusion. There is normal flow-void in the i nferior vena cava and the splenic vein and portal vein. IMPRESSION: Borderline dilated gallbladder. Mildly dilated common bile duct but no dilation of the intrahepatic b ile ducts. No filling defects seen within the distal common bile duct. This could relate to a strictu re.
[2018-08-05] MEDS: MORPHINE SULFATE 4 MG/ML SYRINGE IVP PRN ×2 (00:44→08:24)
[2018-08-05] MEDS: SODIUM CHLORIDE 0.9% 1,000 ML IV SCH (04:27)
[2018-08-05] MEDS: LEVOTHYROXINE 25 MCG TAB PO SCH (04:33)
[2018-08-05] MEDS: LIPASE 5,000/PROTEASE 17,000/AMYLASE 24,000 PO SCH (07:21)
[2018-08-05] MEDS: MAGNESIUM OXIDE 400 MG TAB PO SCH (07:22)
[2018-08-05 07:23] LABS: ALT 17 U/L (21-72); AST 44 U/L (17-59); African American GFR (CKD) >90 (>60 ml/min/1.73 sqM); Albumin 2.9 g/dL (3.5-5.0); Alkaline Phosphatase 76 U/L (38-126); Anion Gap 7 mmol/L; Blood Urea Nitrogen 6 mg/dL (9-20); Calcium 7.3 mg/dL (8.4-10.2); Carbon Dioxide 21 mmol/L (22-30); Chloride 110 mmol/L (98-107); Glucose 107 mg/dL (74-99); Potassium 3.4 mmol/L (3.5-5.1); Sodium 138 mmol/L (137-145); Total Bilirubin 4.6 mg/dL (0.2-1.3); Total Protein 6.1 g/dL (6.3-8.2)
[2018-08-05] MEDS: RIFAXIMIN 550 MG TABLET PO SCH ×2 (07:23→07:34)
[2018-08-05] MEDS: PANTOPRAZOLE 40 MG TABLET PO SCH (07:23)
[2018-08-05] MEDS: traMADol 50 MG TAB PO PRN (07:23)
[2018-08-05] MEDS: MULTIVITAMINS, THERA 1 EACH TAB PO SCH (07:24)
[2018-08-05] MEDS: LACTULOSE 20 GM/30 ML CUP PO SCH (07:24)
[2018-08-05 07:25] LABS: Basophils % (A) 0 %; Eosinophils % (A) 2 %; HCT 30.9 % (39.0-53.0); HGB 10.5 gm/dL (13.0-17.5); Lymphocytes # (A) 0.4 k/uL (1.0-4.8); Lymphocytes % (A) 20 %; MCH 30.7 pg (25.0-35.0); MCHC 34.1 g/dL (31.0-37.0); Mean Platelet Volume 9.5; Monocytes # (A) 0.1 k/uL (0-1.0); Monocytes % (A) 7 %; Neutrophils # (A) 1.4 k/uL (1.3-7.7); Neutrophils % (A) 69 %; RBC 3.43 m/uL (4.30-5.90); RDW 15.4 % (11.5-15.5)
[2018-08-05 07:31] LABS: Platelet Count 20 k/uL (150-450)
[2018-08-05] MEDS: THIAMINE 100 MG TAB PO SCH (07:34)
[2018-08-05 07:50] VITALS: BP 149/102; PULSE 87; TEMP 99
[2018-08-05 07:59] LABS: INR 1.9 (<1.2); Prothrombin Time 18.7 sec (9.0-12.0)
[2018-08-05] MEDS ORDERED: POTASSIUM CHLORIDE ER 20 MEQ TAB.ER PO STA (08:36)
--- NOTE | 2018-08-05 09:26 | P.PN ---
Subjective Progress Note Date: 08/05/18 Principal diagnosis: abdominal pain cirrhosis MRCP reported no CBD stone or filing defect questionable stricture. Afebrile. Feels better. TB 4.6. Transaminases stable. Objective - Vital Signs Vital signs: Vital Signs Temp 99.0 F 08/05/18 07:20 Pulse 87 08/05/18 07:20 Resp 17 08/05/18 01:42 BP 149/102 08/05/18 07:20 Pulse Ox 96 08/05/18 07:20 Intake & Output 08/04/18 08/05/18 08/05/18 18:59 06:59 18:59 Output Total 100 Balance -100 Output: Emesis 100 Other: Voiding Method Toilet Toilet # Voids 1 1 - Constitutional General appearance: Present: no acute distress - EENT Eyes: Present: normal appearance Ears: bilateral: normal - Neck Neck: Present: normal ROM - Respiratory Respiratory: bilateral: CTA - Cardiovascular Rhythm: regular Heart sounds: normal: S1, S2 - Gastrointestinal Gastrointestinal Comment(s): minimal tenderness midepigastric no R/G. General gastrointestinal: Present: soft - Integumentary Integumentary: Present: normal turgor - Neurologic Neurologic Comment(s): alert oriented x 3 - Musculoskeletal Musculoskeletal: Present: gait normal - Psychiatric Psychiatric: Present: A&O x's 3 - Labs CBC & Chem 7: 08/05/18 06:33 08/05/18 06:33 Labs: Abnormal Lab Results - Last 24 Hours (Table) 08/05/18 08/05/18 08/05/18 Range/Units 06:33 06:33 06:33 WBC 2.0 L (3.8-10.6) k/uL RBC 3.43 L (4.30-5.90) m/uL Hgb 10.5 L (13.0-17.5) gm/dL Hct 30.9 L (39.0-53.0) % Plt Count 20 L (150-450) k/uL Lymphocytes # 0.4 L (1.0-4.8) k/uL PT 18.7 H (9.0-12.0) sec INR 1.9 H (<1.2) Potassium 3.4 L (3.5-5.1) mmol/L Chloride 110 H (98-107) mmol/L Carbon Dioxide 21 L (22-30) mmol/L BUN 6 L (9-20) mg/dL Glucose 107 H (74-99) mg/dL Calcium 7.3 L (8.4-10.2) mg/dL Total Bilirubin 4.6 H (0.2-1.3) mg/dL ALT 17 L (21-72) U/L Total Protein 6.1 L (6.3-8.2) g/dL Albumin 2.9 L (3.5-5.0) g/dL Assessment and Plan (1) Abdominal pain Narrative/Plan: 42-year-old male admitted with epigastric right upper quadrant abdominal pain without bleeding or fever with underlying compensated alcohol liver cirrhosis portal hypertension. HIDA scan could not excluded CBD stone and or soft tissue mass. Follow-up MRCP ruled out CBD stone filing defect, an underlying biliary stricture could not be excluded. Status: Acute Code(s): R10.9 - UNSPECIFIED ABDOMINAL PAIN SNOMED Code(s): 27458645 (2) Alcoholic cirrhosis of liver Status: Acute Code(s): K70.30 - ALCOHOLIC CIRRHOSIS OF LIVER WITHOUT ASCITES SNOMED Code(s): 928622909 (3) Thrombocytopenia Status: Acute Code(s): D69.6 - THROMBOCYTOPENIA, UNSPECIFIED SNOMED Code(s): 712457425 (4) Hyperbilirubinemia Status: Chronic Code(s): E80.6 - OTHER DISORDERS OF BILIRUBIN METABOLISM SNOMED Code(s): 51631943 Plan: 1. Clinically feels well with no symptoms of sepsis or cholangitis. Dr. Smart recommends discharge and RTO next week for reevaluation and discussion possible outpatient EUS and ERCP. Inpatient ERCP not recommended at this time. Assessment and plan of care discussed with Dr. Smart
[2018-08-05] MEDS ORDERED: LEVOFLOXACIN 500MG-D5W PMX 500 MG in DEXTROSE/WATER 1 100ML.BAG IVPB ONE (11:00)
[2018-08-05] MEDS ORDERED: INDOMETHACIN 50MG SUPPOSITORY RECTAL ONE (11:00)
--- NOTE | 2018-08-05 11:03 | P.DS ---
Providers Date of admission: 08/03/18 04:54 Expected date of discharge: 08/05/18 Attending physician: Vinnie Jose Consults: 08/03/18 13:11 Consult Physician Routine Consulting Provider: Yasmin Herrera Consult Reason/Comments: medical management Do you want consulting provider notified?: Yes 08/04/18 08:59 Consult Physician Routine Consulting Provider: Scot Augustine Consult Reason/Comments: abd pain, alcoholic liver Do you want consulting provider notified?: Yes Primary care physician: [facility] Course: 42-year-old male who presented to emergency room with a chief complaint of abdominal pain. Patient reports he has been having generalized pain, worse on the right side and epigastric region. Patient states he has been having pain for months but over the past couple days it became more intense. He reports he has been trying to abstain from alcohol but the pain got so bad he drank half a pint of peppermint schnapps. He reports nausea. Denies episodes of vomiting at home. Denies fever or chills. Denies diarrhea or constipation. Patient follows with Dr. Smart outpatient secondary to his liver cirrhosis and chronic pancreatitis. Patient underwent EGD on 04/20/2017 revealing gastritis consistent with portal gastropathy but no gastric or esophageal varices or active bleeding. -CT abdomen and pelvis: Cirrhotic liver, dilated common bile duct at 1.17. No obstructing stones were seen. -Gallbladder ultrasound: Cirrhotic liver, borderline thickened gallbladder wall. No stones. Severely dilated common bile duct at 1.3 cm. -HIDA scan: EF 51%. Questionable soft tissue density at distal common bile duct. Not seen on prior liver MRI. -MRCP: Borderline dilated gallbladder. Mildly dilated common bile duct but no dilation of the intrahepatic bile duct. No filling defects seen within the distant common bile duct. This could relate to a stricture. GI was consulted and evaluated patient. GI recommends outpatient follow up. patient has Appointment scheduled for next week. Patient is stable for discharge home today. Please see EMR for further hospital course details. Discharge diagnosis: 1. Acute on chronic abdominal pain 2. Liver cirrhosis with portal hypertension 3. Acute alcohol intoxication 4. History of alcohol abuse 5. History of GI bleeding from esophageal varices requiring banding 6. Lactic acidosis 7. Chronic thrombocytopenia 8. Hyperbilirubinemia 9. Elevated ammonia levels Nurse practitioner note has been reviewed by physician. Signing provider agrees with the documented findings, assessment, and plan of care. Patient Condition at Discharge: Stable Plan - Discharge Summary Discharge Rx Participant: No New Discharge Prescriptions: Continue Levothyroxine Sodium [Synthroid] 25 mcg PO DAILY Pantoprazole Sodium [Protonix] 20 mg PO BID Magnesium 200 mg PO TID Multivitamin [Men's Multi-Vitamin] 1 tab PO DAILY Furosemide [Lasix] 20 mg PO BID Spironolactone [Aldactone] 25 mg PO BID Ondansetron [Zofran ODT] 4 mg PO BID PRN PRN Reason: Nausea And Vomiting Lactulose [Constulose] 20 gm PO BID Lipase/Protease/Amylase [Zenpep Dr 25,000 Unit Capsule] 1 cap PO AC-TID Rifaximin [Xifaxan] 550 mg PO BID Discharge Medication List Levothyroxine Sodium [Synthroid] 25 mcg PO DAILY 05/07/16 [History] Pantoprazole Sodium [Protonix] 20 mg PO BID 01/02/17 [History] Magnesium 200 mg PO TID 03/05/17 [History] Multivitamin [Men's Multi-Vitamin] 1 tab PO DAILY 03/05/17 [History] Furosemide [Lasix] 20 mg PO BID 04/16/18 [History] Spironolactone [Aldactone] 25 mg PO BID 04/16/18 [History] Lactulose [Constulose] 20 gm PO BID 08/02/18 [History] Lipase/Protease/Amylase [Zenpep Dr 25,000 Unit Capsule] 1 cap PO AC-TID 08/02/18 [History] Ondansetron [Zofran ODT] 4 mg PO BID PRN 08/02/18 [History] Rifaximin [Xifaxan] 550 mg PO BID 08/02/18 [History] Follow up Appointment(s)/Referral(s): Titus Smart MD [STAFF PHYSICIAN] - 08/11/18 11:45 am ([place] office) Pablo Linn MD [Primary Care Provider] - 1-2 days (office closed) Patient Instructions/Handouts: Cholecystitis (GEN) Discharge Disposition: HOME SELF-CARE
== END 2018-08-05 09:14 | disposition home or self-care (01) ==
LOC: EC 19:52 → 4SSUR 08-03 04:54
PROVIDERS: ADMIT Surgery; ATTEND Surgery
DX: K70.30 Alcoholic cirrhosis of liver without ascites (principal); K76.6 Portal hypertension; F10.129 Alcohol abuse with intoxication, unspecified; Y90.7 Blood alcohol level of 200-239 mg/100 ml; D69.6 Thrombocytopenia, unspecified; E87.2 Acidosis; F32.9 Major depressive disorder, single episode, unspecified; F17.210 Nicotine dependence, cigarettes, uncomplicated; K21.9 Gastro-esophageal reflux disease without esophagitis; E80.7 Disorder of bilirubin metabolism, unspecified; K86.0 Alcohol-induced chronic pancreatitis; R79.1 Abnormal coagulation profile; I10 Essential (primary) hypertension; M54.9 Dorsalgia, unspecified; M48.00 Spinal stenosis, site unspecified; G89.29 Other chronic pain; G62.9 Polyneuropathy, unspecified; Z91.81 History of falling; Z90.49 Acquired absence of other specified parts of digestive tract; Z79.890 Hormone replacement therapy; Z79.899 Other long term (current) drug therapy; Z71.41 Alcohol abuse counseling and surveillance of alcoholic
CPT/HCPCS: 96376 ×4; 96361 ×4; 96375 ×2; 96374; 99285; 36415 ×2; 80053 ×3; 82140; 83605 ×2; 83690; 85025 ×2; 85610 ×2; 85730; 81003; 76705; 74177; 74181; 78227; G0378 ×3; G0480; A9537; J2270 ×4; J2405 ×2; J2805; J0696; Q9967; 80320

== ENCOUNTER 2018-09-21 22:17 | Inpatient (IN) | payer MEDICARE ==
[2018-09-22 00:20] VITALS: BMI 22.1
[2018-09-22] MEDS ORDERED: ONDANSETRON ODT 4 MG TAB PO PRN (00:35)
[2018-09-22] MEDS: traMADol 50 MG TAB PO PRN ×2 (00:56→08:00)
[2018-09-22] MEDS: LIPASE 5,000/PROTEASE 17,000/AMYLASE 24,000 PO SCH ×3 (08:00→17:21)
[2018-09-22] MEDS: LEVOTHYROXINE 25 MCG TAB PO SCH (08:01)
[2018-09-22 08:33] LABS: Anisocytosis Slight; Basophils % (A) 1 %; Eosinophils # (A) 0.1 k/uL (0-0.7); Eosinophils % (A) 3 %; HCT 36.5 % (39.0-53.0); HGB 12.1 gm/dL (13.0-17.5); Lymphocytes # (A) 0.6 k/uL (1.0-4.8); Lymphocytes % (A) 24 %; MCH 31.3 pg (25.0-35.0); MCHC 33.2 g/dL (31.0-37.0); MCV 94.5 fL (80.0-100.0); Mean Platelet Volume 8.8; Monocytes # (A) 0.2 k/uL (0-1.0); Monocytes % (A) 6 %; Neutrophils # (A) 1.8 k/uL (1.3-7.7); Neutrophils % (A) 65 %; RBC 3.86 m/uL (4.30-5.90); WBC 2.8 k/uL (3.8-10.6)
[2018-09-22 08:45] LABS: Platelet Count 19 k/uL (150-450)
[2018-09-22 08:49] LABS: ALT 23 U/L (21-72); AST 74 U/L (17-59); African American GFR (CKD) >90 (>60 ml/min/1.73 sqM); Alkaline Phosphatase 84 U/L (38-126); Anion Gap 10 mmol/L; Blood Urea Nitrogen 11 mg/dL (9-20); Carbon Dioxide 24 mmol/L (22-30); Chloride 112 mmol/L (98-107); Glucose 138 mg/dL (74-99); Magnesium 1.6 mg/dL (1.6-2.3); Potassium 3.5 mmol/L (3.5-5.1); Sodium 146 mmol/L (137-145); Total Bilirubin 4.6 mg/dL (0.2-1.3); Total Protein 6.5 g/dL (6.3-8.2)
[2018-09-22] MEDS: MULTIVITAMINS, THERA 1 EACH TAB PO SCH (09:56)
[2018-09-22] MEDS: MAGNESIUM OXIDE 400 MG TAB PO SCH ×3 (09:56→22:39)
[2018-09-22] MEDS: LACTULOSE 20 GM/30 ML CUP PO SCH ×2 (09:56→22:44)
[2018-09-22] MEDS: SPIRONOLACTONE 25 MG TAB PO SCH ×2 (09:56→22:41)
[2018-09-22] MEDS: RIFAXIMIN 550 MG TABLET PO SCH ×2 (09:56→22:42)
[2018-09-22] MEDS: PANTOPRAZOLE 40 MG TABLET PO SCH ×2 (09:57→22:42)
[2018-09-22] MEDS: MORPHINE SULFATE 2 MG/ML SYRINGE IVP PRN ×4 (09:57→23:25)
[2018-09-22] MEDS: FUROSEMIDE 20 MG TAB PO SCH ×2 (09:57→22:39)
[2018-09-22] MEDS ORDERED: THIAMINE 100 MG/ML 2 ML VIAL IM STA (14:48)
[2018-09-22] MEDS ORDERED: LORazepam 2 MG/ML INJ IV PRN ×3 (14:48)
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
[2018-09-22] MEDS: SUCRALFATE 1 GM TAB PO SCH ×2 (15:07→22:42)
[2018-09-22] MEDS: ATENOLOL 25 MG TAB PO SCH (15:07)
[2018-09-22] MEDS: THIAMINE 100 MG TAB PO SCH (17:21)
[2018-09-23] MEDS: MORPHINE SULFATE 2 MG/ML SYRINGE IVP PRN ×5 (03:27→22:36)
[2018-09-23] MEDS: LEVOTHYROXINE 25 MCG TAB PO SCH (05:52)
[2018-09-23] MEDS: LIPASE 5,000/PROTEASE 17,000/AMYLASE 24,000 PO SCH ×3 (07:51→18:34)
[2018-09-23] MEDS: THIAMINE 100 MG TAB PO SCH ×2 (07:51→18:34)
[2018-09-23 08:56] LABS: HCT 36.3 % (39.0-53.0); MCH 30.4 pg (25.0-35.0); Mean Platelet Volume 7.7; RBC 3.95 m/uL (4.30-5.90); RDW 15.8 % (11.5-15.5); WBC 2.4 k/uL (3.8-10.6)
[2018-09-23 08:58] LABS: ALT 20 U/L (21-72); AST 77 U/L (17-59); African American GFR (CKD) >90 (>60 ml/min/1.73 sqM); Albumin 3.4 g/dL (3.5-5.0); Alkaline Phosphatase 99 U/L (38-126); Anion Gap 11 mmol/L; Blood Urea Nitrogen 12 mg/dL (9-20); Calcium 8.1 mg/dL (8.4-10.2); Carbon Dioxide 25 mmol/L (22-30); Chloride 101 mmol/L (98-107); Glucose 146 mg/dL (74-99); Potassium 3.5 mmol/L (3.5-5.1); Sodium 137 mmol/L (137-145); Total Bilirubin 8.3 mg/dL (0.2-1.3); Total Protein 7.1 g/dL (6.3-8.2)
[2018-09-23 09:07] LABS: Platelet Count 18 k/uL (150-450)
[2018-09-23] MEDS: MAGNESIUM OXIDE 400 MG TAB PO SCH ×3 (09:36→21:09)
[2018-09-23] MEDS: LACTULOSE 20 GM/30 ML CUP PO SCH ×3 (09:36→21:12)
[2018-09-23] MEDS: FUROSEMIDE 20 MG TAB PO SCH ×2 (09:37→21:09)
[2018-09-23] MEDS: RIFAXIMIN 550 MG TABLET PO SCH ×2 (09:37→21:09)
[2018-09-23] MEDS: SUCRALFATE 1 GM TAB PO SCH ×3 (09:37→21:09)
[2018-09-23] MEDS: ATENOLOL 25 MG TAB PO SCH (09:37)
[2018-09-23] MEDS: MULTIVITAMINS, THERA 1 EACH TAB PO SCH (09:37)
[2018-09-23] MEDS: SPIRONOLACTONE 25 MG TAB PO SCH ×2 (09:37→21:09)
[2018-09-23] MEDS: PANTOPRAZOLE 40 MG TABLET PO SCH ×2 (09:37→21:09)
[2018-09-23] MEDS: SERTRALINE 50 MG TAB PO SCH (09:37)
[2018-09-24] MEDS: MORPHINE SULFATE 2 MG/ML SYRINGE IVP PRN ×3 (03:37→13:12)
[2018-09-24] MEDS: LEVOTHYROXINE 25 MCG TAB PO SCH (05:34)
[2018-09-24] MEDS: LIPASE 5,000/PROTEASE 17,000/AMYLASE 24,000 PO SCH ×2 (07:46→13:13)
[2018-09-24] MEDS: THIAMINE 100 MG TAB PO SCH (07:46)
[2018-09-24 08:11] LABS: Anisocytosis Slight; HCT 33.9 % (39.0-53.0); HGB 11.2 gm/dL (13.0-17.5); MCH 30.4 pg (25.0-35.0); MCHC 33.1 g/dL (31.0-37.0); MCV 91.8 fL (80.0-100.0); RBC 3.69 m/uL (4.30-5.90); RDW 16.1 % (11.5-15.5); WBC 2.5 k/uL (3.8-10.6)
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
[2018-09-24 08:36] LABS: Platelet Count 16 k/uL (150-450)
[2018-09-24 08:45] LABS: ALT 24 U/L (21-72); AST 65 U/L (17-59); African American GFR (CKD) >90 (>60 ml/min/1.73 sqM); Alkaline Phosphatase 90 U/L (38-126); Anion Gap 9 mmol/L; Blood Urea Nitrogen 14 mg/dL (9-20); Calcium 7.6 mg/dL (8.4-10.2); Carbon Dioxide 27 mmol/L (22-30); Chloride 101 mmol/L (98-107); Glucose 122 mg/dL (74-99); Potassium 3.5 mmol/L (3.5-5.1); Sodium 137 mmol/L (137-145); Total Bilirubin 5.6 mg/dL (0.2-1.3); Total Protein 6.5 g/dL (6.3-8.2)
[2018-09-24] MEDS: RIFAXIMIN 550 MG TABLET PO SCH (09:26)
[2018-09-24] MEDS: MAGNESIUM OXIDE 400 MG TAB PO SCH ×2 (09:26→17:10)
[2018-09-24] MEDS: LACTULOSE 20 GM/30 ML CUP PO SCH ×2 (09:26→17:10)
[2018-09-24] MEDS: SERTRALINE 50 MG TAB PO SCH (09:27)
[2018-09-24] MEDS: SPIRONOLACTONE 25 MG TAB PO SCH (09:27)
[2018-09-24] MEDS: MULTIVITAMINS, THERA 1 EACH TAB PO SCH (09:27)
[2018-09-24] MEDS: PANTOPRAZOLE 40 MG TABLET PO SCH (09:28)
[2018-09-24] MEDS: ATENOLOL 25 MG TAB PO SCH (09:28)
[2018-09-24] MEDS: FUROSEMIDE 20 MG TAB PO SCH (09:28)
[2018-09-24] MEDS: SUCRALFATE 1 GM TAB PO SCH ×2 (09:28→17:10)
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
[2018-09-24 15:27] VITALS: BP 107/64; PULSE 64; RESP 12; TEMP 98
== END 2018-09-24 17:48 | disposition home or self-care (01) | DRG 432 ==
LOC: 4SSUR 23:55
PROVIDERS: ADMIT Internal Medicine; ATTEND Internal Medicine
DX: K70.30 Alcoholic cirrhosis of liver without ascites (principal); D57.02 Hb-SS disease with splenic sequestration; K76.6 Portal hypertension; D61.818 Other pancytopenia; F33.9 Major depressive disorder, recurrent, unspecified; K86.1 Other chronic pancreatitis; K83.8 Other specified diseases of biliary tract; K31.89 Other diseases of stomach and duodenum; M48.00 Spinal stenosis, site unspecified; G89.29 Other chronic pain; G62.1 Alcoholic polyneuropathy; E03.9 Hypothyroidism, unspecified; F10.20 Alcohol dependence, uncomplicated; Z87.891 Personal history of nicotine dependence; I10 Essential (primary) hypertension; K21.9 Gastro-esophageal reflux disease without esophagitis; K29.70 Gastritis, unspecified, without bleeding; S20.211A Contusion of right front wall of thorax, initial encounter; Z79.890 Hormone replacement therapy; Z79.899 Other long term (current) drug therapy; Z87.19 Personal history of other diseases of the digestive system; Z71.3 Dietary counseling and surveillance; R00.2 Palpitations; Z91.81 History of falling
CPT/HCPCS: 80053; 82140; 83690; 83735; 85025; 85027

== ENCOUNTER 2018-10-18 17:39 | Inpatient (IN) | payer MEDICARE ==
[2018-10-18] MEDS ORDERED: HYDROmorphone 1 MG/ML 1 ML SYRINGE IVP STA (19:36)
[2018-10-18] MEDS ORDERED: ONDANSETRON 4 MG/2 ML VIAL IVP STA (19:36)
--- NOTE | 2018-10-18 19:40 | ED ---
Abdominal Pain HPI - General Chief Complaint: Abdominal Pain Stated Complaint: abdominal pain/fluid build up/SOB Time Seen by Provider: 10/18/18 19:09 Source: patient Mode of arrival: ambulatory Limitations: no limitations - History of Present Illness Initial Comments: 42-year-old male patient with past medical history significant for cirrhosis of the liver and thrombocytopenia presents to the emergency department today for evaluation of abdominal distention and pain. Patient states that over the last 2 days his abdomen has become quite swollen. States he is having severe upper abdominal pain with this. Patient states the swelling is making it difficult for him to breathe. Patient states he has gained 18 pounds in the last 2 days. Patient states that he did have to have a paracentesis one time in the past, in 2013. Patient is also reporting easy bruising. States he just has to touch his skin and a bruise will appear. He states that he is having difficulty getting his thoughts straight and he has been confused. Patient has been following with his GI specialist outpatient. Patient denies any recent rash, fever, chills, nausea, vomiting, diarrhea, constipation, back pain, numbness, tingling, dizziness, weakness, hematuria, dysuria, urinary urgency, urinary frequency, headache, visual changes, or any other complaints. - Related Data Home Medications Medication Instructions Recorded Confirmed Levothyroxine Sodium [Synthroid] 25 mcg PO DAILY 05/07/16 10/18/18 Pantoprazole Sodium [Protonix] 20 mg PO BID 01/02/17 10/18/18 Furosemide [Lasix] 20 mg PO BID 04/16/18 10/18/18 Spironolactone [Aldactone] 25 mg PO DAILY 04/16/18 10/18/18 Lactulose [Constulose] 20 gm PO BID 08/02/18 10/18/18 Rifaximin [Xifaxan] 550 mg PO BID 08/02/18 10/18/18 Sucralfate [Carafate] 1 gm PO ACHS 09/22/18 10/18/18 Lipase/Protease/Amylase [Zenpep Dr 5,000 unit PO AC-TID 10/18/18 10/18/18 5,000 Unit Capsule] Multivitamins, Thera [Multivitamin 1 tab PO DAILY 10/18/18 10/18/18 (formulary)] Potassium Chloride ER [K-Dur 20] 20 meq PO DAILY 10/18/18 10/18/18 Vitamin B Complex 1 cap PO DAILY 10/18/18 10/18/18 Previous Rx's Medication Instructions Recorded Magnesium Oxide [Mag-Ox] 200 mg PO TID tab 09/24/18 Ondansetron Odt [Zofran ODT] 4 mg PO BID PRN #30 tab 09/24/18 Thiamine [Vitamin B-1] 100 mg PO BID-W/MEALS tab 09/24/18 Allergies Allergy/AdvReac Type Severity Reaction Status Date / Time No Known Allergies Allergy Verified 10/18/18 21:39 Review of Systems ROS Statement: Those systems with pertinent positive or pertinent negative responses have been documented in the HPI. ROS Other: All systems not noted in ROS Statement are negative. Past Medical History Past Medical History: GERD/Reflux, GI Bleed, Hypertension, Liver Disease, Thyroid Disorder Additional Past Medical History / Comment(s): Liver cirrhosis, portal htn, ETOH abuse, esophageal varicies, upper GI bleed, chronic thrombocytopenia, coagulopathy, pancytopenia, ascities, spinal stenosis: back/leg and feet pain, DDD, chronic back pain, neuropathy bilateral legs/feet, falls, bronchitis, past L rib fractures after fall off ladder,03-05-17 fall w/ head injury. 2010 [place], chronic pancreatitis History of Any Multi-Drug Resistant Organisms: None Reported Past Surgical History: Appendectomy, Joint Replacement Additional Past Surgical History / Comment(s): EGDs paracentesis, back injections, R thumb reattachment, circumcism. Past Anesthesia/Blood Transfusion Reactions: No Reported Reaction Additional Past Anesthesia/Blood Transfusion Reaction / Comment(s): Pt has rec eived blood without reaction. Past Psychological History: Depression Smoking Status: Current some day smoker Past Alcohol Use History: Daily, Occasional Past Drug Use History: None Reported - Past Family History Father Family Medical History: Unable to Obtain Additional Family Medical History / Comment(s): Pt does not know his father's medical hx. Mother Family Medical History: No Reported History Additional Family Medical History / Comment(s): Mother is healthy. Brother(s) Additional Family Medical History / Comment(s): Patient has 3 brothers and one suffers from alcohol abuse. 2 brothers have no major medical problems. Patient does not have any sisters. Patient is one daughter 12 years old with no major medical problems. General Exam Limitations: no limitations General appearance: alert, in no apparent distress, other (This is a well- developed, well-nourished adult male patient in mild distress related to pain. Vital signs upon presentation are temperature 98.4F, pulse 80, respirations 20, blood pressure 131/87, pulse ox 97% on room air.) Eye exam: Present: normal appearance, PERRL, EOMI. Absent: scleral icterus, con junctival injection, periorbital swelling ENT exam: Present: normal exam, normal oropharynx, mucous membranes moist Respiratory exam: Present: normal lung sounds bilaterally. Absent: respiratory distress, wheezes, rales, rhonchi, stridor Cardiovascular Exam: Present: regular rate, normal rhythm, normal heart sounds. Absent: systolic murmur, diastolic murmur, rubs, gallop, clicks GI/Abdominal exam: Present: soft, distended, normal bowel sounds, other (Ascites). Absent: tenderness, guarding, rebound, rigid Neurological exam: Present: alert, oriented X3, CN II-XII intact Psychiatric exam: Present: normal affect, normal mood Skin exam: Present: warm, dry, intact, normal color. Absent: rash Course Vital Signs 10/18/18 18:38 Temperature 98.4 F Pulse Rate 18 L Respiratory 20 Rate Blood Pressure 131/87 O2 Sat by Pulse 97 Oximetry Medical Decision Making - Medical Decision Making 42-year-old male patient presents to the emergency department today for evaluation of increased abdominal pain and swelling. Patient has known cirrhosis of the liver and chronic pancreatitis. Physical examination did reveal a distended ascitic abdomen. Midepigastric tenderness. Labs reviewed and did reveal platelet count of 52, alteration in liver enzymes which is chronic, lipase is 101. Patient's blood alcohol level is over 230. I did discuss findings and results with the patient, he'll be admitted for further evaluation and possible paracentesis. - Lab Data Result diagrams: 10/18/18 19:45 10/18/18 19:45 Lab Results 10/18/18 10/18/18 10/18/18 Range/Units 19:45 19:45 19:45 WBC 7.2 (3.8-10.6) k/uL RBC 4.27 L (4.30-5.90) m/uL Hgb 13.6 (13.0-17.5) gm/dL Hct 42.0 (39.0-53.0) % MCV 98.5 D (80.0-100.0) fL MCH 31.9 (25.0-35.0) pg MCHC 32.4 (31.0-37.0) g/dL RDW 18.4 H (11.5-15.5) % Plt Count 57 L D (150-450) k/uL Neutrophils % 75 % Lymphocytes % 12 % Monocytes % 8 % Eosinophils % 2 % Basophils % 1 % Neutrophils # 5.4 (1.3-7.7) k/uL Lymphocytes # 0.8 L (1.0-4.8) k/uL Monocytes # 0.6 (0-1.0) k/uL Eosinophils # 0.2 (0-0.7) k/uL Basophils # 0.1 (0-0.2) k/uL Hypochromasia Slight Anisocytosis Slight Macrocytosis Slight PT (9.0-12.0) sec INR (<1.2) APTT (22.0-30.0) sec Sodium 141 (137-145) mmol/L Potassium 3.9 (3.5-5.1) mmol/L Chloride 111 H (98-107) mmol/L Carbon Dioxide 19 L (22-30) mmol/L Anion Gap 11 mmol/L BUN 10 (9-20) mg/dL Creatinine 0.95 (0.66-1.25) mg/dL Est GFR (CKD-EPI)AfAm >90 (>60 ml/min/1.73 sqM) Est GFR (CKD-EPI)NonAf >90 (>60 ml/min/1.73 sqM) Glucose 119 H (74-99) mg/dL Plasma Lactic Acid Reji 1.6 (0.7-2.0) mmol/L Calcium 9.0 (8.4-10.2) mg/dL Total Bilirubin 3.6 H (0.2-1.3) mg/dL AST 77 H (17-59) U/L ALT 27 (21-72) U/L Alkaline Phosphatase 109 (38-126) U/L Ammonia (<30) umol/L Total Protein 7.6 (6.3-8.2) g/dL Albumin 3.5 (3.5-5.0) g/dL Amylase 191 H (30-110) U/L Lipase 801 H (23-300) U/L Urine Color Urine Appearance (Clear) Urine pH (5.0-8.0) Ur Specific [place] (1.001-1.035) Urine Protein (Negative) Urine Glucose (UA) (Negative) Urine Ketones (Negative) Urine Blood (Negative) Urine Nitrite (Negative) Urine Bilirubin (Negative) Urine Urobilinogen (<2.0) mg/dL Ur Leukocyte Esterase (Negative) Serum Alcohol 234 H* mg/dL 10/18/18 10/18/18 10/18/18 Range/Units 19:45 19:45 19:45 WBC (3.8-10.6) k/uL RBC (4.30-5.90) m/uL Hgb (13.0-17.5) gm/dL Hct (39.0-53.0) % MCV (80.0-100.0) fL MCH (25.0-35.0) pg MCHC (31.0-37.0) g/dL RDW (11.5-15.5) % Plt Count (150-450) k/uL Neutrophils % % Lymphocytes % % Monocytes % % Eosinophils % % Basophils % % Neutrophils # (1.3-7.7) k/uL Lymphocytes # (1.0-4.8) k/uL Monocytes # (0-1.0) k/uL Eosinophils # (0-0.7) k/uL Basophils # (0-0.2) k/uL Hypochromasia Anisocytosis Macrocytosis PT 13.5 H (9.0-12.0) sec INR 1.3 H (<1.2) APTT 27.3 (22.0-30.0) sec Sodium (137-145) mmol/L Potassium (3.5-5.1) mmol/L Chloride (98-107) mmol/L Carbon Dioxide (22-30) mmol/L Anion Gap mmol/L BUN (9-20) mg/dL Creatinine (0.66-1.25) mg/dL Est GFR (CKD-EPI)AfAm (>60 ml/min/1.73 sqM) Est GFR (CKD-EPI)NonAf (>60 ml/min/1.73 sqM) Glucose (74-99) mg/dL Plasma Lactic Acid Reji (0.7-2.0) mmol/L Calcium (8.4-10.2) mg/dL Total Bilirubin (0.2-1.3) mg/dL AST (17-59) U/L ALT (21-72) U/L Alkaline Phosphatase (38-126) U/L Ammonia 16 (<30) umol/L Total Protein (6.3-8.2) g/dL Albumin (3.5-5.0) g/dL Amylase (30-110) U/L Lipase (23-300) U/L Urine Color Colorless Urine Appearance Clear (Clear) Urine pH 6.5 (5.0-8.0) Ur Specific [place] 1.000 L (1.001-1.035) Urine Protein Negative (Negative) Urine Glucose (UA) Negative (Negative) Urine Ketones Negative (Negative) Urine Blood Negative (Negative) Urine Nitrite Negative (Negative) Urine Bilirubin Negative (Negative) Urine Urobilinogen <2.0 (<2.0) mg/dL Ur Leukocyte Esterase Negative (Negative) Serum Alcohol mg/dL Disposition Clinical Impression: Ascites, Abdominal pain Disposition: ADMITTED IP TO THIS [facility] Condition: Serious Referrals: Pablo Linn MD [Primary Care Provider] - 1-2 days Decision to Admit Reason: Admit from EC Decision Date: 10/18/18 Decision Time: 21:26
[2018-10-18 20:06] LABS: Appearance,Urine Clear (Clear); Bilirubin,Urine Negative (Negative); Blood,Urine Negative (Negative); Color,Urine Colorless; Glucose,Urine (UA) Negative (Negative); Ketones,Urine Negative (Negative); Leukocyte Esterase,Urine Negative (Negative); Nitrite,Urine Negative (Negative); PH, Urine 6.5 (5.0-8.0); Protein,Urine Negative (Negative); Urobilinogen,Urine <2.0 mg/dL (<2.0)
[2018-10-18 20:07] LABS: Anisocytosis Slight; Basophils # (A) 0.1 k/uL (0-0.2); Basophils % (A) 1 %; Eosinophils # (A) 0.2 k/uL (0-0.7); Eosinophils % (A) 2 %; HGB 13.6 gm/dL (13.0-17.5); Hypochromasia Slight; Lymphocytes # (A) 0.8 k/uL (1.0-4.8); Lymphocytes % (A) 12 %; MCH 31.9 pg (25.0-35.0); MCHC 32.4 g/dL (31.0-37.0); Macrocytosis Slight; Mean Platelet Volume 8.4; Monocytes # (A) 0.6 k/uL (0-1.0); Monocytes % (A) 8 %; Neutrophils # (A) 5.4 k/uL (1.3-7.7); Neutrophils % (A) 75 %; RBC 4.27 m/uL (4.30-5.90); RDW 18.4 % (11.5-15.5); WBC 7.2 k/uL (3.8-10.6)
[2018-10-18 20:09] LABS: MCV 98.5 fL (80.0-100.0); Platelet Count 57 k/uL (150-450)
[2018-10-18 20:12] LABS: ALT 27 U/L (21-72); AST 77 U/L (17-59); African American GFR (CKD) >90 (>60 ml/min/1.73 sqM); Albumin 3.5 g/dL (3.5-5.0); Alkaline Phosphatase 109 U/L (38-126); Amylase 191 U/L (30-110); Anion Gap 11 mmol/L; Blood Urea Nitrogen 10 mg/dL (9-20); Carbon Dioxide 19 mmol/L (22-30); Chloride 111 mmol/L (98-107); Glucose 119 mg/dL (74-99); Non-African American GFR(CKD) >90 (>60 ml/min/1.73 sqM); Potassium 3.9 mmol/L (3.5-5.1); Sodium 141 mmol/L (137-145); Total Bilirubin 3.6 mg/dL (0.2-1.3); Total Protein 7.6 g/dL (6.3-8.2)
[2018-10-18 20:14] LABS: INR 1.3 (<1.2); Partial Thromboplastin Time 27.3 sec (22.0-30.0); Prothrombin Time 13.5 sec (9.0-12.0)
[2018-10-18 20:17] LABS: Alcohol 234 mg/dL
[2018-10-18] MEDS ORDERED: NALOXONE 0.4 MG/ML 1 ML VIAL IV PRN (21:22)
[2018-10-18] MEDS: HYDROmorphone 0.5 MG/0.5 ML SYRINGE IVP PRN (22:59)
[2018-10-19] MEDS: HYDROmorphone 0.5 MG/0.5 ML SYRINGE IVP PRN ×7 (02:35→23:34)
[2018-10-19] MEDS: LIPASE 5,000/PROTEASE 17,000/AMYLASE 24,000 PO SCH ×2 (12:10→16:00)
[2018-10-19] MEDS: SUCRALFATE 1 GM TAB PO SCH ×3 (12:10→21:14)
--- NOTE | 2018-10-19 14:07 | US ---
EXAMINATION TYPE: US abdomen limited DATE OF EXAM: 10/19/2018 COMPARISON: NONE CLINICAL HISTORY: 42-year-old female with pain, assess for fluid pocket. Ascites check. TECHNIQUE: Ultrasound examination of the 4 abdominal quadrants for assessment of ascites fluid. FINDINGS: Moderate ascites seen within all 4 quadrants with the largest pocket in the RLQ. Nodular hepatic cont our suggesting underlying cirrhosis. IMPRESSION: Moderate abdominal ascites, largest pocket in the right lower quadrant.
--- NOTE | 2018-10-19 15:30 | P.HPIM ---
History of Present Illness H&P Date: 10/19/18 This is a 42-year-old male patient of Dr. Sarmad Linn. He has history of alcohol liver cirrhosis with portal hypertension and previous GI bleeding, hypertension and gastritis, pancreatitis, spinal stenosis and peripheral neuropathy. Patient also has chronic back pain and was under the c are of Dr. Lagunas but violated pain contract and no longer seen by pain management. He is also known to Dr. Smart from previous EGDs in the past finding gastritis consistent with portal gastropathy but no gastric or esophageal varices or active bleeding. He has had multipe admissions for acute GI bleed in Jan 2016, Mar 2016 and Mar 2017. He had admission for right leg abscess requiring I&D in December 2017. Most recent hospitalization in July of this year for acute on chronic abdominal pain, liver cirrhosis and portal hypertension, acute alcohol intoxication. Patient underwent MRCP with bor derline dilated gallbladder. Mildly dilated common bile duct but no dilatation of the intrahepatic bile duct. No filling defects seen in the distant common bile duct. This could relate to stricture. HIDA scan showed an EF of 51% and questionable soft tissue density at the distal common bile duct not seen on prior liver MRI. Patient was stabilized and discharged home. His last hospitalization was in September 21- this year for alcoholic liver disease and portal hypertension. Patient states that he has been avoiding alcohol but was camping and did not have access to water so he had a couple beers, tall ones. He also had chips and salsa. He also gives history that a friend entered hospice care last week was also a drinker. He patient has history of seeing a new physician in [place] that is doing acupuncture spinal manipulation and helping with pain control. Patient presented to [facility] emergency center due to abdominal pain and abdominal distention and ascites. He is complaining of severe abdominal pain secondary to the extra fluid. He states he has gained 18 pounds in the past 2 days. His last paracentesis was done in 2013. Platelet count was 57, blood sugar 119, CO2 19. Lactic acid 1.6. Total bilirubin 3.6, AST 77, ALT 77, amylase 191 and lipase 801, serum alcohol level 234. Ammonia 16. He was afebrile, hemodynamically stable. Patient was started on Zofran and Dilaudid and admitted to the [facility] floor. Review of Systems Constitutional: Reports fatigue, Reports lethargy, Reports malaise, Reports poor appetite, Reports weakness, Denies anorexia, Denies chills, Denies fever Ears, nose, mouth and throat: Denies dental pain, Denies dysphagia, Denies mouth pain, Denies nasal congestion, Denies nasal discharge, Denies vertigo Cardiovascular: Reports decreased exercise tolerance, Reports dyspnea on exertion, Reports edema, Reports shortness of breath, Denies chest pain, Denies leg edema, Denies orthopnea, Denies palpitations, Denies syncope Respiratory: Reports dyspnea, Denies congestion, Denies cough, Denies cough with sputum, Denies excessive sputum, Denies hemoptysis, Denies home oxygen, Denies wheezing Gastrointestinal: Reports abdominal pain, Reports bloating, Reports early satiety, Reports indigestion, Reports loss of appetite, Reports nausea Genitourinary: Denies dysuria, Denies urinary retention Musculoskeletal: Denies frequent falls, Denies gait dysfunction, Denies muscle weakness, Denies myalgias Integumentary: Denies pruritus, Denies rash Neurological: Denies aphasia, Denies change in mentation, Denies change in speech, Denies confusion, Denies numbness, Denies seizures, Denies syncope, Denies weakness Psychiatric: Denies anxiety, Denies depression Endocrine: Denies fatigue, Denies weight change Past Medical History Past Medical History: GERD/Reflux, GI Bleed, Hypertension, Liver Disease, Thyroid Disorder Additional Past Medical History / Comment(s): Liver cirrhosis, portal htn, ETOH abuse, esophageal varicies, upper GI bleed, chronic thrombocytopenia, coagulopathy, pancytopenia, ascities, spinal stenosis: back/leg and feet pain, DDD, chronic back pain, neuropathy bilateral legs/feet, falls, bronchitis, past L rib fractures after fall off ladder,18 fall w/ head injury. 2010 [facility] [place], chronic pancreatitis History of Any Multi-Drug Resistant Organisms: None Reported Past Surgical History: Appendectomy, Joint Replacement Additional Past Surgical History / Comment(s): EGDs paracentesis, back injections, R thumb reattachment, circumcism. Past Anesthesia/Blood Transfusion Reactions: No Reported Reaction Additional Past Anesthesia/Blood Transfusion Reaction / Comment(s): Pt has received blood without reaction. Past Psychological History: Depression Additional Psychological History / Comment(s): Pt is on disability. He resides with his mother. He uses a cane to ambulate. He drives. Smoking Status: Current some day smoker Past Alcohol Use History: Daily, Occasional Additional Past Alcohol Use History / Comment(s): Patient is a smoker of a pack per day for 27 years. Patient states he quit one month ago which would be 08/23/2017. He denies any marijuana or street drug use. He does have history of heavy alcohol use with drinking up to a pint per day for 7 years but he currently is only drinking an occasional beer. He is on disability. He is currently living with his mother. He does have a dog in the home exposure to his daughter's cat. He uses a cane for ambulation. Past Drug Use History: None Reported - Past Family History Father Family Medical History: Unable to Obtain Additional Family Medical History / Comment(s): Pt does not know his father's medical hx. Mother Family Medical History: No Reported History Additional Family Medical History / Comment(s): Mother is healthy. Brother(s) Additional Family Medical History / Comment(s): Patient has 3 brothers and one suffers from alcohol abuse. 2 brothers have no major medical problems. Patient does not have any sisters. Patient is one daughter 12 years old with no major medical problems. Medications and Allergies Home Medications Medication Instructions Recorded Confirmed Type Levothyroxine Sodium [Synthroid] 25 mcg PO DAILY 05/07/16 10/18/18 History Pantoprazole Sodium [Protonix] 20 mg PO BID 01/02/17 10/18/18 History Furosemide [Lasix] 20 mg PO BID 04/16/18 10/18/18 History Spironolactone [Aldactone] 25 mg PO DAILY 04/16/18 10/18/18 History Lactulose [Constulose] 20 gm PO BID 08/02/18 10/18/18 History Rifaximin [Xifaxan] 550 mg PO BID 08/02/18 10/18/18 History Sucralfate [Carafate] 1 gm PO ACHS 09/22/18 10/18/18 History Magnesium Oxide [Mag-Ox] 200 mg PO TID tab 09/24/18 10/18/18 Rx Ondansetron Odt [Zofran ODT] 4 mg PO BID PRN #30 tab 09/24/18 10/18/18 Rx Thiamine [Vitamin B-1] 100 mg PO BID-W/MEALS tab 09/24/18 10/18/18 Rx Lipase/Protease/Amylase [Zenpep Dr 5,000 unit PO AC-TID 10/18/18 10/18/18 History 5,000 Unit Capsule] Multivitamins, Thera [Multivitamin 1 tab PO DAILY 10/18/18 10/18/18 History (formulary)] Potassium Chloride ER [K-Dur 20] 20 meq PO DAILY 10/18/18 10/18/18 History Vitamin B Complex 1 cap PO DAILY 10/18/18 10/18/18 History Allergies Allergy/AdvReac Type Severity Reaction Status Date / Time No Known Allergies Allergy Verified 10/18/18 21:39 Physical Exam Vitals: Vital Signs Temp Pulse Pulse Resp BP BP Pulse Ox 10/19/18 07:00 98.1 F 69 17 111/75 95 10/19/18 01:50 97.8 F 68 17 118/82 94 L 10/18/18 22:35 98.4 F 85 18 135/93 93 L 10/18/18 22:20 78 16 119/92 95 10/18/18 18:38 98.4 F 18 L 20 131/87 97 Intake and Output 10/18/18 10/19/18 10/19/18 22:59 06:59 14:59 Other: # Voids 1 Weight 71.214 kg General appearance: average body habitus, cooperative, no distress - EENT Eyes: EOMI, PERRLA, no photophobia, poor dentition, no ptosis, scleral icterus ENT: hearing grossly normal, normal oropharynx Ears: bilateral: normal - Neck Neck: lymphadenopathy Carotids: bilateral: upstroke normal - Respiratory Respiratory: bilateral: CTA, negative: diminished, dullness, rales, rhonchi, wheezing - Cardiovascular Rhythm: regular Heart sounds: normal: S1, S2 Abnormal Heart Sounds: no systolic murmur, no diastolic murmur, no rub, no click - Gastrointestinal General gastrointestinal: decreased bowel sounds, distended, soft, tenderness Localized gastrointestinal: tender: diffuse, epigastric (worse), guarding: diffuse - Integumentary Integumentary: no cyanotic, jaundiced, no rash, no ulcer - Neurologic Neurologic: CNII-XII intact - Musculoskeletal Musculoskeletal: generalized weakness, large open wound to the right anterior thigh area with bloody pustulant drainage. Very foul order. There is s urrounding erythema. - Psychiatric Psychiatric: A&O x's 3, appropriate affect Results CBC & Chem 7: 10/18/18 19:45 10/18/18 19:45 Labs: Abnormal Lab Results - Last 24 Hours (Table) 10/18/18 10/18/18 10/18/18 Range/Units 19:45 19:45 19:45 RBC 4.27 L (4.30-5.90) m/uL RDW 18.4 H (11.5-15.5) % Plt Count 57 L D (150-450) k/uL Lymphocytes # 0.8 L (1.0-4.8) k/uL PT 13.5 H (9.0-12.0) sec INR 1.3 H (<1.2) Chloride 111 H (98-107) mmol/L Carbon Dioxide 19 L (22-30) mmol/L Glucose 119 H (74-99) mg/dL Total Bilirubin 3.6 H (0.2-1.3) mg/dL AST 77 H (17-59) U/L Amylase 191 H (30-110) U/L Lipase 801 H (23-300) U/L Ur Specific [place] (1.001-1.035) Serum Alcohol 234 H* mg/dL 10/18/18 Range/Units 19:45 RBC (4.30-5.90) m/uL RDW (11.5-15.5) % Plt Count (150-450) k/uL Lymphocytes # (1.0-4.8) k/uL PT (9.0-12.0) sec INR (<1.2) Chloride (98-107) mmol/L Carbon Dioxide (22-30) mmol/L Glucose (74-99) mg/dL Total Bilirubin (0.2-1.3) mg/dL AST (17-59) U/L Amylase (30-110) U/L Lipase (23-300) U/L Ur Specific [place] 1.000 L (1.001-1.035) Serum Alcohol mg/dL Thrombosis Risk Factor Assmnt - DVT/VTE Prophylaxis DVT/VTE Prophylaxis: Mechanical Prophylaxis ordered - Choose All That Apply Any of the Below Risk Factors Present?: Yes Each Factor Represents 1 point: Age 41-60 years Other Risk Factors: No Other congenital or acquired thrombophilia - If yes, enter type in comment: No Thrombosis Risk Factor Assessment Total Risk Factor Score: 1 Thrombosis Risk Factor Assessment Level: Low Risk Assessment and Plan Plan: 1. Abdominal pain secondary to acute pancreatitis and underlying alcoholic liver cirrhosis with worsening ascites. The patient is currently nothing by mouth, IV fluids, interventional radiology for paracentesis. Continue lactulose 20 mg twice daily, Zenpep 3 times daily, Xifaxan 550 mg twice daily, Aldactone 25 mg daily, Lasix 20 mg twice daily. 2. History of alcoholic liver disease with portal hypertension and previous episodes of acute GI bleed with acute blood loss anemia resulting in multiple hospitalizations for GI bleeding from esophageal varices status post banding. Patient is chronically on Aldactone 25 mg twice daily, Xifaxan 550 mg twice daily, Protonix 40 mg twice daily, lactulose 20 mg twice daily, Lasix 20 mg twice daily, Zenpep 3 times daily and Carafate. 3. Chronic pancytopenia secondary to chronic EtOH related bone marrow damage and portal hypertension causing splenic sequestration. Patient follows with hematology 4. Alcohol intoxication. Continue IV fluids, vitamins. 5. Spinal stenosis with peripheral neuropathy. The patient has started seeing a holistic doctor in [place] 6. Tobacco use and dependence. Patient quit 2 month ago. 7. Hypothyroidism. Continue levothyroxine 25 g daily. 8. Recurrent depression. Patient was unable to tolerate Zoloft. 9. Peripheral neuropathy secondary to alcoholism and spinal stenosis. 10. Gastroesophageal reflux disease and GI prophylaxis. Continue Protonix and Carafate. 11. DVT prophylaxis. No heparin due to thrombocytopenia. SCDs and ANDREEA hose and early ambulation. Patient will be admitted to the hospital for a minimum of 2 night stay Discharge plan: Home Impression and plan of care have been directed as dictated by the signing physician. Giovana Kathleen nurse practitioner acting as scribe for signing physician.
[2018-10-19] MEDS: MAGNESIUM OXIDE 400 MG TAB PO SCH ×2 (16:00→21:14)
[2018-10-19] MEDS: SODIUM CHLORIDE 0.9% 1,000 ML IV SCH (16:01)
[2018-10-19] MEDS: THIAMINE 100 MG TAB PO SCH (16:01)
--- NOTE | 2018-10-19 16:07 | US ---
EXAMINATION TYPE: US paracentesis abd w/image DATE OF EXAM: 10/19/2018 COMPARISON: NONE HISTORY: Ascites. PROCEDURE: Maximal barrier technique was utilized. The skin overlying a suitable pocket of fluid was localized with ultrasound and the overlying skin was prepped and draped. Ultrasound was utilized with sterile technique. Lidocaine was used for local anesthesia and a skin gia made with a scalpel. Catheter was advanced under direct ultrasound guidance into a suitable pocket of fluid and approximately 3.9 liter s of serous fluid were removed. Catheter was withdrawn and hemostasis achieved. There is no immedia te complication; the patient is discharged in stable condition. IMPRESSION: STATUS POST ULTRASOUND GUIDED PARACENTESIS FOR PALLIATION OF ASCITES. THIS PROCEDURE WA S PERFORMED BY THE UNDERSIGNED. Specimen obtained for laboratory analysis.
[2018-10-19] MEDS: FUROSEMIDE 20 MG TAB PO SCH (21:13)
[2018-10-19] MEDS: LACTULOSE 20 GM/30 ML CUP PO SCH (21:14)
[2018-10-19] MEDS: RIFAXIMIN 550 MG TABLET PO SCH (21:14)
--- NOTE | 2018-10-19 23:19 | P.CONS ---
History of Present Illness - Reason for Consult Consult date: 10/19/18 Ascites Requesting physician: Alfreda Godfrey - Chief Complaint Abdominal pain - History of Present Illness 42-year-old male with a known medical history of alcoholic liver disease, splenomegaly, alcoholic pancreatitis, chronic thrombocytopenia, previous esophageal varices, and portal hypertension who presented to the hospital for evaluation of abdominal pain and distention. The patient reported severe abdominal pain secondary to fluid. He states gaining approximately 20 pounds in water weight. He previously acquired a paracentesis in 2013 during which time over 8 L of ascites was removed. The patient reports recent alcohol consumption while on a camping trip with his brothers. Currently he is seen lying in the medical floor after paracentesis with over 3 L of fluid removed. He still having some abdominal pain and distention. No nausea vomiting reported. La boratory evaluation on presentation significant for total bilirubin 3.6, AST 77, ALT 77, amylase 191, lipase 801, alcohol level 234, lactic acid 1.6, platelet count 57,000. Review of Systems REVIEW OF SYSTEMS: CONSTITUTIONAL: Denies any fevers, chills, weight change or fatigue. CARDIOVASCULAR: Denies any chest pain, palpitations high or low blood pressures RESPIRATORY: Denies any shortness of breath, hemoptysis or cough. GENITOURINARY: No dysuria or hematuria. MUSCULOSKELETAL: No weakness reported. SKIN: Denies any new rashes or lesions, jaundice or pallor. PSYCHIATRIC: Denies any depression or anxiety. NEUROLOGY: Denies headache, denies any new focal deficits. EARS/NOSE/THROAT: No recent hearing change, congestion, nasal discharge or sore throat. EYES: No pain in eyes, discharge or change in vision. GASTROINTESTINAL: As per HPI. Past Medical History Past Medical History: GERD/Reflux, GI Bleed, Hypertension, Liver Disease, Thyroid Disorder Additional Past Medical History / Comment(s): Liver cirrhosis, portal htn, ETOH abuse, esophageal varicies, upper GI bleed, chronic thrombocytopenia, coagulopathy, pancytopenia, ascities, spinal stenosis: back/leg and feet pain, DDD, chronic back pain, neuropathy bilateral legs/feet, falls, bronchitis, past L rib fractures after fall off ladder,18 fall w/ head injury. 2010 [facility] [place], chronic pancreatitis History of Any Multi-Drug Resistant Organisms: None Reported Past Surgical History: Appendectomy, Joint Replacement Additional Past Surgical History / Comment(s): EGDs paracentesis, back injections, R thumb reattachment, circumcism. Past Anesthesia/Blood Transfusion Reactions: No Reported Reaction Additional Past Anesthesia/Blood Transfusion Reaction / Comm: Pt has received blood without reaction. Past Psychological History: Depression Additional Psychological History / Comment(s): Pt is on disability. He resides with his mother. He uses a cane to ambulate. He drives. Smoking Status: Current some day smoker Past Alcohol Use History: Daily, Occasional Additional Past Alcohol Use History / Comment(s): Patient is a smoker of a pack per day for 27 years. Patient states he quit one month ago which would be 08/23/2017. He denies any marijuana or street drug use. He does have history of heavy alcohol use with drinking up to a pint per day for 7 years but he currently is only drinking an occasional beer. He is on disability. He is currently living with his mother. He does have a dog in the home exposure to his daughter's cat. He uses a cane for ambulation. Past Drug Use History: None Reported - Past Family History Father Family Medical History: Unable to Obtain Additional Family Medical History / Comment(s): Pt does not know his father's medical hx. Mother Family Medical History: No Reported History Additional Family Medical History / Comment(s): Mother is healthy. Brother(s) Additional Family Medical History / Comment(s): Patient has 3 brothers and one suffers from alcohol abuse. 2 brothers have no major medical problems. Patient does not have any sisters. Patient is one daughter 12 years old with no major medical problems. Medications and Allergies Home Medications Medication Instructions Recorded Confirmed Type Levothyroxine Sodium [Synthroid] 25 mcg PO DAILY 05/07/16 10/18/18 History Pantoprazole Sodium [Protonix] 20 mg PO BID 01/02/17 10/18/18 History Furosemide [Lasix] 20 mg PO BID 04/16/18 10/18/18 History Spironolactone [Aldactone] 25 mg PO DAILY 04/16/18 10/18/18 History Lactulose [Constulose] 20 gm PO BID 08/02/18 10/18/18 History Rifaximin [Xifaxan] 550 mg PO BID 08/02/18 10/18/18 History Sucralfate [Carafate] 1 gm PO ACHS 09/22/18 10/18/18 History Magnesium Oxide [Mag-Ox] 200 mg PO TID tab 09/24/18 10/18/18 Rx Ondansetron Odt [Zofran ODT] 4 mg PO BID PRN #30 tab 09/24/18 10/18/18 Rx Thiamine [Vitamin B-1] 100 mg PO BID-W/MEALS tab 09/24/18 10/18/18 Rx Lipase/Protease/Amylase [Zenpep Dr 5,000 unit PO AC-TID 10/18/18 10/18/18 History 5,000 Unit Capsule] Multivitamins, Thera [Multivitamin 1 tab PO DAILY 10/18/18 10/18/18 History (formulary)] Potassium Chloride ER [K-Dur 20] 20 meq PO DAILY 10/18/18 10/18/18 History Vitamin B Complex 1 cap PO DAILY 10/18/18 10/18/18 History Allergies Allergy/AdvReac Type Severity Reaction Status Date / Time No Known Allergies Allergy Verified 10/18/18 21:39 Physical Exam Vitals: Vital Signs Temp Pulse Pulse Resp BP Pulse Ox 10/19/18 19:00 98.4 F 72 18 114/73 97 10/19/18 16:20 98.7 F 72 17 119/76 96 10/19/18 16:00 76 16 135/79 96 10/19/18 15:16 74 18 135/81 97 10/19/18 15:00 98.3 F 72 17 111/79 97 10/19/18 14:54 79 18 129/81 99 10/19/18 07:00 98.1 F 69 17 111/75 95 10/19/18 01:50 97.8 F 68 17 118/82 94 L Intake and Output 10/19/18 10/19/18 10/20/18 14:59 22:59 06:59 Other: # Voids 2 On physical examination, patient appears comfortable in no apparent distress. HEAD: Normocephalic, atraumatic. EYES: No scleral icterus. No conjunctival injection. MOUTH: No lesions, tongue midline. NECK: Trachea midline, no gross abnormalities. CHEST: Clear to auscultation with no wheezing or rhonchi appreciated. HEART: Regular rate and rhythm. ABDOMEN: Soft, mildly distended status post paracentesis. Bowel sounds are positive. No organomegaly. No guarding or rigidity. EXTREMITIES: No pedal edema. SKIN: No rashes, no jaundice. NEUROLOGIC: Alert and oriented x3. No asterixis noted. No focal deficits. Results CBC & Chem 7: 10/18/18 19:45 10/18/18 19:45 US - abdomen: report reviewed (Ultrasound-guided paracentesis with over 3 L removed) Assessment and Plan (1) Ascites Current Visit: Yes Status: Acute Code(s): R18.8 - OTHER ASCITES SNOMED Code(s): 026166701 (2) Alcoholic cirrhosis of liver Current Visit: No Status: Acute Code(s): K70.30 - ALCOHOLIC CIRRHOSIS OF LIVER WITHOUT ASCITES SNOMED Code(s): 207302979 (3) Chronic pancreatitis Current Visit: No Status: Acute Code(s): K86.1 - OTHER CHRONIC PANCREATITIS SNOMED Code(s): 599232398 (4) Thrombocytopenia Current Visit: No Status: Acute Code(s): D69.6 - THROMBOCYTOPENIA, UNSPECIFIED SNOMED Code(s): 789137775 (5) Hyperbilirubinemia Current Visit: No Status: Chronic Code(s): E80.6 - OTHER DISORDERS OF BILIRUBIN METABOLISM SNOMED Code(s): 03893213 Plan: Supportive care Okay for liquid diet, advance as tolerated 2 g sodium restriction Continue Aldactone and Lasix Continue rifaximin and lactulose Alcohol abstinence Thank you for allowing us to participate in the care of the patient we will continue to follow
[2018-10-20] MEDS: HYDROmorphone 0.5 MG/0.5 ML SYRINGE IVP PRN ×3 (03:06→09:32)
[2018-10-20] MEDS ORDERED: LEVOTHYROXINE 25 MCG TAB PO SCH (06:30)
[2018-10-20 07:29] VITALS: BP 105/64; PULSE 79; RESP 17; TEMP 98.4
[2018-10-20] MEDS ORDERED: PANTOPRAZOLE 40 MG TABLET PO SCH (07:30)
[2018-10-20] MEDS: MAGNESIUM OXIDE 400 MG TAB PO SCH (07:47)
[2018-10-20] MEDS: LIPASE 5,000/PROTEASE 17,000/AMYLASE 24,000 PO SCH ×2 (07:47→12:49)
[2018-10-20] MEDS: FUROSEMIDE 20 MG TAB PO SCH (07:48)
[2018-10-20] MEDS: THIAMINE 100 MG TAB PO SCH (07:48)
[2018-10-20] MEDS: RIFAXIMIN 550 MG TABLET PO SCH (07:48)
[2018-10-20] MEDS: SUCRALFATE 1 GM TAB PO SCH ×2 (07:48→12:49)
[2018-10-20] MEDS: LACTULOSE 20 GM/30 ML CUP PO SCH (07:48)
[2018-10-20] MEDS: SODIUM CHLORIDE 0.9% 1,000 ML IV SCH (07:50)
[2018-10-20] MEDS ORDERED: NON FORMULARY DRUG (Vitamin B Complex [Vitamin B Complex] 1 CAP) PO SCH (09:00)
[2018-10-20] MEDS ORDERED: SPIRONOLACTONE 25 MG TAB PO SCH (09:00)
[2018-10-20] MEDS ORDERED: MULTIVITAMINS, THERA 1 EACH TAB PO SCH (09:00)
[2018-10-20] MEDS ORDERED: POTASSIUM CHLORIDE ER 20 MEQ TAB.ER PO SCH (09:00)
[2018-10-20] MEDS ORDERED: HYDROcodone/APAP 5-325MG 1 EACH TAB PO PRN (11:02)
[2018-10-20 11:18] LABS: Anisocytosis Slight; HCT 34.7 % (39.0-53.0); HGB 11.1 gm/dL (13.0-17.5); Hypochromasia Slight; MCHC 32.1 g/dL (31.0-37.0); MCV 99.6 fL (80.0-100.0); Macrocytosis Slight; Mean Platelet Volume 9.4; RBC 3.49 m/uL (4.30-5.90); RDW 18.1 % (11.5-15.5)
[2018-10-20 11:19] LABS: ALT 22 U/L (21-72); AST 71 U/L (17-59); African American GFR (CKD) >90 (>60 ml/min/1.73 sqM); Albumin 2.8 g/dL (3.5-5.0); Alkaline Phosphatase 76 U/L (38-126); Anion Gap 8 mmol/L; Blood Urea Nitrogen 15 mg/dL (9-20); Calcium 8.4 mg/dL (8.4-10.2); Carbon Dioxide 22 mmol/L (22-30); Chloride 111 mmol/L (98-107); Glucose 123 mg/dL (74-99); Non-African American GFR(CKD) >90 (>60 ml/min/1.73 sqM); Potassium 4.5 mmol/L (3.5-5.1); Sodium 141 mmol/L (137-145); Total Bilirubin 4.5 mg/dL (0.2-1.3); Total Protein 6.3 g/dL (6.3-8.2)
[2018-10-20 11:54] LABS: Platelet Count 23 k/uL (150-450)
--- NOTE | 2018-10-20 14:49 | P.DS ---
Providers Date of admission: 10/18/18 21:04 Expected date of discharge: 10/20/18 Attending physician: Alfreda Godfrey Consults: 10/18/18 21:24 Consult Physician Routine Consulting Provider: Scot Augustine Consult Reason/Comments: Ascites Do you want consulting provider notified?: Yes Primary care physician: Pablo Linn [facility] Course: This is a 42-year-old male patient of Dr. Sarmad Linn. He has history of alcohol liver cirrhosis with portal hypertension and previous GI bleeding, hypertension and gastritis, pancreatitis, spinal stenosis and peripheral neuropathy. Patient also has chronic back pain and was under the care of Dr. Lagunas but violated pain contract and no longer seen by pain management. He is also known to Dr. Smart from previous EGDs in the past finding gastritis consistent with portal gastropathy but no gastric or esophageal varices or active bleeding. He has had multipe admissions for acute GI bleed in Jan 2016, Mar 2016 and Mar 2017. He had admission for right leg abscess requiring I&D in December 2017. Most recent hospitalization in July of this year for acute on chronic abdominal pain, liver cirrhosis and portal hypertension, acute alcohol intoxication. Patient underwent MRCP with borderline dilated gallbladder. Mildly dilated common bile duct but no dilatation of the intrahepatic bile duct. No filling defects seen in the distant common bile duct. This could relate to stricture. HIDA scan showed an EF of 51% and questionable soft tissue density at the distal common bile duct not seen on prior liver MRI. Patient was stabilized and discharged home. His last hospitalization was in September 21- this year for alcoholic liver disease and portal hypertension. Patient states that he has been avoiding alcohol but was camping and did not have access to water so he had a couple beers, tall ones. He also had chips and salsa. He also gives history that a friend entered hospice care last week was also a drinker. He patient has history of seeing a new physician in [place] that is doing acupuncture spinal manipulation and helping with pain control. Patient presented to [facility] emergency center due to abdominal pain and abdominal distention and ascites. He is complaining of severe abdominal pain secondary to the extra fluid. He states he has gained 18 pounds in the past 2 days. His last paracentesis was done in 2013. Platelet count was 57, blood sugar 119, CO2 19. Lactic acid 1.6. Total bilirubin 3.6, AST 77, ALT 77, amylase 191 and lipase 801, serum alcohol level 234. Ammonia 16. He was afebrile, hemodynamically stable. Patient was started on Zofran and Dilaudid and admitted to the [facility] floor. 10/20: Patient underwent paracentesis yesterday with removal of 3.8 L of fluid, albumin was not indicated per protocol. The patient has been evaluated by Dr. olga mireles with recommendations for liquid diet and advance as tolerated, 2 g sodium restriction, Aldactone and Lasix, continue rifaximin and lactulose. Patient has been afebrile, heart rate 79, blood pressure 105/64, pulse ox 94% on room air. Repeat lab work reveals WBC 2.0, hemoglobin 11.1, platelet count 23, glucose 123. Total bilirubin 4.5, AST 71, ALT 22, alkaline phosphatase 76, lipase 437. Patient's abdominal pain is much improved after paracentesis. He is tolerating diet without nausea or vomiting. The patient did have diarrhea this morning as expected with lactulose. Abdomen is much less distended. Patient requesting tramadol at the time of discharge. Discussed with patient that he can have 3 days worth of medication. He does have plan to follow up with Dr. Bruce for pain management. Start talking form has been reviewed with the patient and he verbalizes understanding. Map score is 290. Patient provided a 3 day course of tramadol. Patient will be discharged home today in stable condition. Discharge diagnoses: 1. Abdominal pain secondary to acute pancreatitis and underlying alcoholic liver cirrhosis with worsening ascites status post paracentesis. 2. History of alcoholic liver disease with portal hypertension and previous episodes of acute GI bleed with acute blood loss anemia resulting in multiple hospitalizations for GI bleeding from esophageal varices status post banding. 3. Chronic pancytopenia secondary to chronic EtOH related bone marrow damage and portal hypertension causing splenic sequestration. 4. Alcohol intoxication. 5. Spinal stenosis with peripheral neuropathy. 6. Tobacco use and dependence. 7. Hypothyroidism. 8. Recurrent depression. 9. Peripheral neuropathy secondary to alcoholism and spinal stenosis. 10. Gastroesophageal reflux disease. Discharge plan: Home Impression and plan of care have been directed as dictated by the signing physician. Giovana Kathleen nurse practitioner acting as scribe for signing physician. Patient Condition at Discharge: Good Plan - Discharge Summary Discharge Rx Participant: Yes New Discharge Prescriptions: New traMADol HCL [Ultram] 50 mg PO Q8HR PRN 3 Days #9 tab PRN Reason: Pain Continue Levothyroxine Sodium [Synthroid] 25 mcg PO DAILY Pantoprazole Sodium [Protonix] 20 mg PO BID Furosemide [Lasix] 20 mg PO BID Spironolactone [Aldactone] 25 mg PO DAILY Rifaximin [Xifaxan] 550 mg PO BID Sucralfate [Carafate] 1 gm PO ACHS Magnesium Oxide [Mag-Ox] 200 mg PO TID tab Thiamine [Vitamin B-1] 100 mg PO BID-W/MEALS tab Ondansetron Odt [Zofran ODT] 4 mg PO BID PRN #30 tab PRN Reason: Nausea And Vomiting Vitamin B Complex 1 cap PO DAILY Potassium Chloride ER [K-Dur 20] 20 meq PO DAILY Multivitamins, Thera [Multivitamin (formulary)] 1 tab PO DAILY Lipase/Protease/Amylase [Linkp 5,000 Unit Capsule] 5,000 unit PO AC-TID Lactulose [Constulose] 20 gm PO BID #60 solution Discharge Medication List Levothyroxine Sodium [Synthroid] 25 mcg PO DAILY 05/07/16 [History] Pantoprazole Sodium [Protonix] 20 mg PO BID 01/02/17 [History] Furosemide [Lasix] 20 mg PO BID 04/16/18 [History] Spironolactone [Aldactone] 25 mg PO DAILY 04/16/18 [History] Rifaximin [Xifaxan] 550 mg PO BID 08/02/18 [History] Sucralfate [Carafate] 1 gm PO ACHS 09/22/18 [History] Magnesium Oxide [Mag-Ox] 200 mg PO TID tab 09/24/18 [Rx] Ondansetron Odt [Zofran ODT] 4 mg PO BID PRN #30 tab 09/24/18 [Rx] Thiamine [Vitamin B-1] 100 mg PO BID-W/MEALS tab 09/24/18 [Rx] Lipase/Protease/Amylase [Robert Blunt 5,000 Unit Capsule] 5,000 unit PO AC-TID 10/18/18 [History] Multivitamins, Thera [Multivitamin (formulary)] 1 tab PO DAILY 10/18/18 [History] Potassium Chloride ER [K-Dur 20] 20 meq PO DAILY 10/18/18 [History] Vitamin B Complex 1 cap PO DAILY 10/18/18 [History] Lactulose [Constulose] 20 gm PO BID #60 solution 10/20/18 [Rx] traMADol HCL [Ultram] 50 mg PO Q8HR PRN 3 Days #9 tab 10/20/18 [Rx] Follow up Appointment(s)/Referral(s): Pablo Linn MD [Primary Care Provider] - 1 Week (office closed at time of discharge) Patient Instructions/Handouts: Ascites (DC), Paracentesis (DC) Activity/Diet/Wound Care/Special Instructions: Follow up with Pain Management as previously planned. Discharge Disposition: HOME SELF-CARE
== END 2018-10-20 14:44 | disposition home or self-care (01) | DRG 432 ==
LOC: EC 17:39 → 4SSUR 21:04
PROVIDERS: ADMIT Internal Medicine; ATTEND Internal Medicine
PROC: 0W9G3ZZ Drainage of Peritoneal Cavity, Percutaneous Approach (ICD-10-PCS; principal; 2018-10-19)
DX: K70.31 Alcoholic cirrhosis of liver with ascites (principal); K85.90 Acute pancreatitis without necrosis or infection, unspecified; K76.6 Portal hypertension; D61.818 Other pancytopenia; F33.9 Major depressive disorder, recurrent, unspecified; F17.200 Nicotine dependence, unspecified, uncomplicated; M48.00 Spinal stenosis, site unspecified; G62.1 Alcoholic polyneuropathy; F10.229 Alcohol dependence with intoxication, unspecified; E03.9 Hypothyroidism, unspecified; I10 Essential (primary) hypertension; K21.9 Gastro-esophageal reflux disease without esophagitis; G89.29 Other chronic pain; K83.8 Other specified diseases of biliary tract; Y90.7 Blood alcohol level of 200-239 mg/100 ml; Z96.60 Presence of unspecified orthopedic joint implant; Z79.899 Other long term (current) drug therapy; Z79.890 Hormone replacement therapy; Z90.89 Acquired absence of other organs; Z90.49 Acquired absence of other specified parts of digestive tract
CPT/HCPCS: 36415; 49083; 76705; 80053; 80320; 81003; 82140; 82150; 83605; 83690; 85025; 85027; 85610; 85730; 96374; 96375; 99284

== ENCOUNTER → 2019-03-07 | Outpatient (CLI) | payer MEDICARE ==
[2019-03-07 12:20] LABS: HCT 31.6 % (39.0-53.0); HGB 10.6 gm/dL (13.0-17.5); MCH 33.3 pg (25.0-35.0); MCHC 33.6 g/dL (31.0-37.0); MCV 99.1 fL (80.0-100.0); Macrocytosis Slight; RBC 3.18 m/uL (4.30-5.90); RDW 14.8 % (11.5-15.5); WBC 4.2 k/uL (3.8-10.6)
[2019-03-07 12:25] LABS: INR 1.5 (<1.2); Prothrombin Time 15.4 sec (9.0-12.0)
[2019-03-07 12:29] LABS: African American GFR (CKD) >90 (>60 ml/min/1.73 sqM); Anion Gap 9 mmol/L; Blood Urea Nitrogen 14 mg/dL (9-20); Calcium 7.7 mg/dL (8.4-10.2); Carbon Dioxide 19 mmol/L (22-30); Chloride 106 mmol/L (98-107); Glucose 159 mg/dL (74-99); Non-African American GFR(CKD) >90 (>60 ml/min/1.73 sqM); Potassium 3.4 mmol/L (3.5-5.1); Sodium 134 mmol/L (137-145)
[2019-03-07 13:11] LABS: Platelet Count 22 k/uL (150-450)
[2019-03-07 13:17] LABS: Lymphocytes # (M) 0.29 k/uL (1.0-4.8); Monocytes # (M) 0.29 k/uL (0-1.0); Neutrophils # (M) 3.61 k/uL (1.3-7.7); Neutrophils % (M) 86 %; Nucleated Red Blood Cells 0 /100 WBC (0-0); Total Cells Counted 100
[2019-03-07 13:21] LABS: Anisocytosis (M) Present
== END | disposition home or self-care (01) ==
LOC: LABPAT 11:16
PROVIDERS: ATTEND Urology
DX: Z01.812 Encounter for preprocedural laboratory examination (principal); K76.9 Liver disease, unspecified; A63.0 Anogenital (venereal) warts
CPT/HCPCS: 36415; 80048; 85025; 85610

== ENCOUNTER → 2019-03-07 | Outpatient (CLI) | payer MEDICARE | END | disposition home or self-care (01) | LOC: LABWHC1 11:21 | PROVIDERS: ATTEND Physician Assistant | DX: K70.30 Alcoholic cirrhosis of liver without ascites (principal) | CPT/HCPCS: 36415; 82105 ==

== ENCOUNTER 2019-03-14 06:20 | Day surgery (SDC) | payer MEDICARE ==
[2019-03-11 11:54] VITALS: BMI 22.1
--- NOTE | 2019-03-12 19:43 | P.HPIHPCON ---
History of Present Illness H&P Date: 03/12/19 Chief Complaint: Penile condyloma Mr Bart is 43 yo with hx liver cirrhosis. 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 I discussed with him different option including observation vs excision. He agreed to proceed with excision of penile condyloma. I discussed with risk of bleeding and infection. Also discussed risk of penile injury and possible recurrence. I discussed with him the risk from anesthesia which includes but not limited to heart attack, stroke, blood clots and even loss of life. He understood all the risk and agreed to proceed. Consent for Procedure: I have explained the operation/procedure to the patient, including the risks, benefits, side effects, alternative therapies (including not receiving the proposed treatment or service), the likelihood of the patient achieving his/her goals, and potential recuperation problems for the procedure/sedation/analgesia, as well as any blood products, if indicated. I also explained to the patient the risks, benefits and side effects of the alternatives, as well as the risks related to not receiving the proposed procedure, care, treatment, or services. Past Medical History Past Medical History: GERD/Reflux, GI Bleed, Hypertension, Liver Disease, Thyroid Disorder Additional Past Medical History / Comment(s): Liver cirrhosis, portal htn, ETOH abuse, esophageal varicies, upper GI bleed, chronic thrombocytopenia, coagulopathy, pancytopenia, ascities, spinal stenosis: back/leg and feet pain, DDD, chronic back pain, neuropathy bilateral legs/feet, falls, bronchitis, past L rib fractures after fall off ladder,18 fall w/ head injury. 2010 Guillian Anza, chronic pancreatitis History of Any Multi-Drug Resistant Organisms: None Reported Past Surgical History: Appendectomy, Orthopedic Surgery Additional Past Surgical History / Comment(s): EGDs paracentesis, back injections, R thumb reattachment, circumCISON Past Anesthesia/Blood Transfusion Reactions: No Reported Reaction Additional Past Anesthesia/Blood Transfusion Reaction / Comment(s): Pt has received blood without reaction. Smoking Status: Current every day smoker - Past Family History Father Family Medical History: Unable to Obtain Additional Family Medical History / Comment(s): Pt does not know his father's medical hx. Mother Family Medical History: No Reported History Additional Family Medical History / Comment(s): Mother is healthy. Brother(s) Additional Family Medical History / Comment(s): Patient has 3 brothers and one suffers from alcohol abuse. 2 brothers have no major medical problems. Patient does not have any sisters. Patient is one daughter 12 years old with no major medical problems. Medications and Allergies Home Medications Medication Instructions Recorded Confirmed Type Levothyroxine Sodium [Synthroid] 25 mcg PO DAILY 05/07/16 03/11/19 History Pantoprazole Sodium [Protonix] 20 mg PO BID 01/02/17 03/11/19 History Furosemide [Lasix] 20 mg PO BID 04/16/18 03/11/19 History Spironolactone [Aldactone] 25 mg PO DAILY 04/16/18 03/11/19 History Rifaximin [Xifaxan] 550 mg PO BID 08/02/18 03/11/19 History Sucralfate [Carafate] 1 gm PO ACHS 09/22/18 03/11/19 History Magnesium Oxide [Mag-Ox] 200 mg PO TID tab 09/24/18 03/11/19 Rx Ondansetron Odt [Zofran ODT] 4 mg PO BID PRN #30 tab 09/24/18 03/11/19 Rx Thiamine [Vitamin B-1] 100 mg PO BID-W/MEALS tab 09/24/18 03/11/19 Rx Lipase/Protease/Amylase [Zenpep Dr 5,000 unit PO AC-TID 10/18/18 03/11/19 History 5,000 Unit Capsule] Multivitamins, Thera [Multivitamin 1 tab PO DAILY 10/18/18 03/11/19 History (formulary)] Vitamin B Complex 1 cap PO DAILY 10/18/18 03/11/19 History traMADol HCL [Ultram] 50 mg PO Q8HR PRN 3 Days #9 tab 10/20/18 03/11/19 Rx Lactulose [Constulose] 20 gm PO QID 03/11/19 03/11/19 History Metoprolol Tartrate [Lopressor] 25 mg PO BID 03/11/19 03/11/19 History Allergies Allergy/AdvReac Type Severity Reaction Status Date / Time No Known Allergies Allergy Verified 03/11/19 11:40 Surgical - Exam - General no distress, no pain - Respiratory normal expansion, normal respiratory effort - Abdomen Abdomen: soft, non tender - Psychiatric oriented to time, oriented to person, oriented to place Assessment and Plan Assessment: 43 yo male with hx of penile condyloma -OR for excision of penile condyloma
[~2019-03-14 06:20] MED LIST changes: +DEXAMETHASONE SOD PHOSPHATE 10 MG/ML 1 ML VIAL IV ONE; +ONDANSETRON 4 MG/2 ML VIAL IVP ONE; +fentaNYL (PF) 50 MCG/ML 2 ML AMP IV PRN
[2019-03-14 06:44] VITALS: TEMP 98.4
[2019-03-14] MEDS ORDERED: fentaNYL (PF) 50 MCG/ML 2 ML AMP ONE (07:20)
[2019-03-14] MEDS ORDERED: PROPOFOL 10 MG/ML 20 ML VIAL IV ONE (07:20)
[2019-03-14] MEDS ORDERED: MIDAZOLAM 2 MG/2 ML VIAL ONE (07:20)
[2019-03-14] MEDS ORDERED: BUPIVACAINE (PF) 0.25% 30 ML VIAL SQ ONE (07:52)
--- NOTE | 2019-03-14 08:22 | P.OP ---
Date of Procedure: 03/14/19 Preoperative Diagnosis: Penile condyloma Postoperative Diagnosis: Same Procedure(s) Performed: Excision of a condyloma Implants: None Anesthesia: local, other (sedation) Surgeon: Rory Sheppard Pathology: other (Penile lesions) Condition: stable Indications for Procedure: Mr Arriaga is 43 yo with hx liver cirrhosis. 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 I discussed with him different option including observation vs excision. He agreed to proceed with excision of penile condyloma. I discussed with risk of bleeding and infection. Also discussed risk of penile injury and possible recurrence. I discussed with him the risk from anesthesia which includes but not limited to heart attack, stroke, blood clots and even loss of life. He understood all the risk and agreed to proceed Operative Findings: 5 condylomatous lesions, 2 along the ventral surface and 3 along the dorsal surface Description of Procedure: The patient was brought to the operating room, sedation was induced by anesthesia. Penile block was performed using 5% Marcaine. In total there was 5 condylomatous lesions, total area of excision was approximately 4 cm. The lesions were excised with adequate margin using the Metzenbaums ensuring adequat e depths. The area of excision was fulgurated using Bovie cautery. The areas of excision were closed using 4-0 Monocryl in interrupted fashion. Adequate hemostasis was achieved. Dermabond was applied to the wounds. The patient was awakened from anesthesia and taken to recovery room in stable condition
[2019-03-14 08:24] VITALS: RESP 16
[2019-03-14 08:51] VITALS: BP 105/71
[2019-03-14 09:18] VITALS: PULSE 69
== END 2019-03-14 09:36 | disposition home or self-care (01) ==
LOC: OR 06:20
PROVIDERS: ATTEND Urology
DX: A63.0 Anogenital (venereal) warts (principal); I10 Essential (primary) hypertension; K21.9 Gastro-esophageal reflux disease without esophagitis; K70.31 Alcoholic cirrhosis of liver with ascites; K76.6 Portal hypertension; I85.10 Secondary esophageal varices without bleeding; F17.210 Nicotine dependence, cigarettes, uncomplicated; F10.21 Alcohol dependence, in remission; E07.9 Disorder of thyroid, unspecified; K86.1 Other chronic pancreatitis; D69.6 Thrombocytopenia, unspecified; D61.818 Other pancytopenia; D68.9 Coagulation defect, unspecified; G62.9 Polyneuropathy, unspecified; G89.29 Other chronic pain; M54.9 Dorsalgia, unspecified; Z79.890 Hormone replacement therapy; Z79.899 Other long term (current) drug therapy; Z98.890 Other specified postprocedural states; Z90.49 Acquired absence of other specified parts of digestive tract; Z81.1 Family history of alcohol abuse and dependence
CPT/HCPCS: 88305; 54060; J2250; J1100; J0690; J2405; J3010; J2704

== ENCOUNTER 2019-03-30 00:56 | Inpatient (IN) | payer MEDICARE ==
[2019-03-30] MEDS ORDERED: MORPHINE SULFATE 4 MG/ML SYRINGE IVP STA (01:27)
[2019-03-30] MEDS ORDERED: PANTOPRAZOLE 40 MG/10 ML VIAL IVP STA (01:27)
[2019-03-30] MEDS ORDERED: SODIUM CHLORIDE 0.9% 1,000 ML IV STA (02:05)
[2019-03-30 02:08] LABS: Basophils % (A) 0 %; Eosinophils # (A) 0.2 k/uL (0-0.7); Eosinophils % (A) 3 %; HCT 37.9 % (39.0-53.0); HGB 11.9 gm/dL (13.0-17.5); Lymphocytes # (A) 0.8 k/uL (1.0-4.8); Lymphocytes % (A) 11 %; MCH 30.1 pg (25.0-35.0); MCHC 31.4 g/dL (31.0-37.0); Mean Platelet Volume 8.4; Monocytes # (A) 0.5 k/uL (0-1.0); Monocytes % (A) 6 %; Neutrophils # (A) 5.7 k/uL (1.3-7.7); Neutrophils % (A) 79 %; RBC 3.95 m/uL (4.30-5.90); RDW 14.3 % (11.5-15.5); WBC 7.3 k/uL (3.8-10.6)
[2019-03-30 02:11] LABS: Appearance,Urine Clear (Clear); Bilirubin,Urine 1+ (Negative); Blood,Urine Negative (Negative); Color,Urine Dark Brown; Glucose,Urine (UA) Negative (Negative); Hyaline Casts,Urine 42 /lpf (0-2); Ketones,Urine Trace (Negative); Leukocyte Esterase,Urine Negative (Negative); Mucus,Urine Moderate /hpf; Nitrite,Urine Negative (Negative); Protein,Urine 2+ (Negative); RBC,Urine 25 /hpf (0-5); Specific Gravity,Urine 1.044 (1.001-1.035); Squamous Epithelial Cell,Urine <1 /hpf (0-4); WBC,Urine 2 /hpf (0-5)
[2019-03-30 02:19] LABS: ALT 19 U/L (4-49); AST 60 U/L (17-59); African American GFR (CKD) >90 (>60 ml/min/1.73 sqM); Albumin 2.9 g/dL (3.5-5.0); Alkaline Phosphatase 76 U/L (38-126); Amylase 138 U/L (30-110); Anion Gap 10 mmol/L; Blood Urea Nitrogen 16 mg/dL (9-20); Carbon Dioxide 15 mmol/L (22-30); Chloride 115 mmol/L (98-107); Glucose 177 mg/dL (74-99); Non-African American GFR(CKD) 79 (>60 ml/min/1.73 sqM); Potassium 4.3 mmol/L (3.5-5.1); Sodium 140 mmol/L (137-145); Total Bilirubin 2.7 mg/dL (0.2-1.3); Total Protein 6.5 g/dL (6.3-8.2)
[2019-03-30 02:25] LABS: Alcohol 153 mg/dL
[2019-03-30 02:31] LABS: INR 1.4 (<1.2); Partial Thromboplastin Time 25.8 sec (22.0-30.0)
[2019-03-30 02:47] LABS: Platelet Count 47 k/uL (150-450)
--- NOTE | 2019-03-30 04:13 | ED ---
Abdominal Pain HPI - General Chief Complaint: Abdominal Pain Stated Complaint: Abd Pain Time Seen by Provider: 03/30/19 01:12 Source: patient Mode of arrival: wheelchair Limitations: no limitations - History of Present Illness Initial Comments: Patient is a 43-year-old male with history of GI bleeds, chronic pancreatitis, alcoholism, hepatic cirrhosis, chronic pancytopenia presenting to emergency Department with a chief complaint of abdominal pain. Patient reports he receives regular paracentesis. Patient reports increased abdominal distention and pain over the last week. Patient reports he has not been drinking over the last month, however he did drink yesterday and worsen his symptoms. Patient reports pain in the epigastric and right upper quadrant region. He does report nausea but denies any vomiting. Patient does report 2 days of intermittent bright red, rectal bleeding. Patient reports yesterday he was in a [facility] and was going to be transferred to the ED here but he refused because he did not want to wait. Mother states the patient has been agitated but no confusion. - Related Data Home Medications Medication Instructions Recorded Confirmed Levothyroxine Sodium [Synthroid] 25 mcg PO DAILY 05/07/16 03/30/19 Pantoprazole Sodium [Protonix] 20 mg PO BID 01/02/17 03/30/19 Furosemide [Lasix] 20 mg PO BID 04/16/18 03/30/19 Spironolactone [Aldactone] 25 mg PO BID 04/16/18 03/30/19 Rifaximin [Xifaxan] 550 mg PO BID 08/02/18 03/30/19 Sucralfate [Carafate] 1 gm PO ACHS 09/22/18 03/30/19 Lipase/Protease/Amylase [Zenpep Dr 5,000 unit PO AC-TID 10/18/18 03/30/19 5,000 Unit Capsule] Multivitamins, Thera [Multivitamin 1 tab PO DAILY 10/18/18 03/30/19 (formulary)] Vitamin B Complex 1 cap PO DAILY 10/18/18 03/30/19 Lactulose [Constulose] 20 gm PO QID 03/11/19 03/30/19 Metoprolol Tartrate [Lopressor] 25 mg PO BID 03/11/19 03/30/19 Previous Rx's Medication Instructions Recorded Magnesium Oxide [Mag-Ox] 200 mg PO TID tab 09/24/18 Thiamine [Vitamin B-1] 100 mg PO BID-W/MEALS tab 09/24/18 Allergies Allergy/AdvReac Type Severity Reaction Status Date / Time No Known Allergies Allergy Verified 03/30/19 07:43 Review of Systems ROS Statement: Those systems with pertinent positive or pertinent negative responses have been documented in the HPI. ROS Other: All systems not noted in ROS Statement are negative. Past Medical History Past Medical History: GERD/Reflux, GI Bleed, Hypertension, Liver Disease, Thyroid Disorder Additional Past Medical History / Comment(s): Liver cirrhosis, portal htn, ETOH abuse, esophageal varicies, upper GI bleed, chronic thrombocytopenia, coagulopathy, pancytopenia, ascities, spinal stenosis: back/leg and feet pain, DDD, chronic back pain, neuropathy bilateral legs/feet, falls, bronchitis, past L rib fractures after fall off ladder,03-05-17 fall w/ head injury. 2010 Guillian Edison, chronic pancreatitis History of Any Multi-Drug Resistant Organisms: None Reported Past Surgical History: Appendectomy, Joint Replacement Additional Past Surgical History / Comment(s): EGDs paracentesis, back injections, R thumb reattachment, circumcism. Past Anesthesia/Blood Transfusion Reactions: No Reported Reaction Additional Past Anesthesia/Blood Transfusion Reaction / Comment(s): Pt has recei cathleen blood without reaction. Past Psychological History: Depression Smoking Status: Current some day smoker Past Alcohol Use History: Daily, Occasional Past Drug Use History: Marijuana - Past Family History Father Family Medical History: Unable to Obtain Additional Family Medical History / Comment(s): Pt does not know his father's medical hx. Mother Family Medical History: No Reported History Additional Family Medical History / Comment(s): Mother is healthy. Brother(s) Additional Family Medical History / Comment(s): Patient has 3 brothers and one suffers from alcohol abuse. 2 brothers have no major medical problems. Patient does not have any sisters. Patient is one daughter 12 years old with no major medical problems. General Exam Limitations: no limitations General appearance: alert, in no apparent distress Head exam: Present: atraumatic, normocephalic, normal inspection Eye exam: Present: normal appearance, PERRL, EOMI, scleral icterus Pupils: Present: normal accommodation ENT exam: Present: normal exam, normal oropharynx, mucous membranes dry Neck exam: Present: normal inspection, full ROM Respiratory exam: Present: normal lung sounds bilaterally. Absent: respiratory distress, wheezes Cardiovascular Exam: Present: regular rate, normal rhythm, normal heart sounds GI/Abdominal exam: Present: distended, tenderness (Epigastric, right upper randee drant tenderness.), organomegaly (Enlarged liver). Absent: soft, guarding, rebound Extremities exam: Present: normal inspection, full ROM Back exam: Present: normal inspection, full ROM Neurological exam: Present: alert, oriented X3 Psychiatric exam: Present: normal affect, normal mood Skin exam: Present: warm, dry, intact, normal color, other (Mild jaundice) Course Vital Signs 03/30/19 03/30/19 03/30/19 01:03 04:04 06:01 Temperature 98.4 F 98.7 F 98.9 F Pulse Rate 95 84 88 Pulse Rate [ Pulse Oximetery ] Respiratory 18 17 18 Rate Blood Pressure 107/71 107/94 109/84 Blood Pressure [Right Arm] O2 Sat by Pulse 95 96 94 L Oximetry 03/30/19 03/30/19 07:53 15:00 Temperature 98.9 F 98.5 F Pulse Rate Pulse Rate [ 88 74 Pulse Oximetery ] Respiratory 16 17 Rate Blood Pressure Blood Pressure 111/73 127/85 [Right Arm] O2 Sat by Pulse 97 96 Oximetry Medical Decision Making - Medical Decision Making Patient is a 43-year-old male with history of chronic pancytopenia, hepatic cirrhosis, chronic pancreatitis presenting to the emergency department with chief complaint of abdominal pain. On exam patient does have epigastric right upper quadrant tenderness with increasing ascites over the last week. Patient skin is quite dry along with dry mucous membranes. Patient is also exhibits signs of mild jaundice along with scleral icterus. Labs show thrombocytopenia, however patient is pancytopenic prior to this. Lipase elevated at over 600. Elevated coags, and low albumin secondary to hepatic cirrhosis.. All mild elevation in AST, rest of transaminases within normal range. Patient was given fluids, Protonix, antiemetics and analgesia. Patient also had bright red rectal bleeding over the last 2 days. She will be admitted for further medical management and paracentesis. At this time patient will be signed off to Dr. Farris. - Lab Data Result diagrams: 03/31/19 09:40 03/30/19 01:41 Lab Results 03/30/19 03/30/19 03/30/19 Range/Units 01:41 01:41 01:41 WBC 7.3 (3.8-10.6) k/uL RBC 3.95 L (4.30-5.90) m/uL Hgb 11.9 L (13.0-17.5) gm/dL Hct 37.9 L (39.0-53.0) % MCV 96.0 (80.0-100.0) fL MCH 30.1 (25.0-35.0) pg MCHC 31.4 (31.0-37.0) g/dL RDW 14.3 (11.5-15.5) % Plt Count 47 L D (150-450) k/uL Neutrophils % 79 % Lymphocytes % 11 % Monocytes % 6 % Eosinophils % 3 % Basophils % 0 % Neutrophils # 5.7 (1.3-7.7) k/uL Lymphocytes # 0.8 L (1.0-4.8) k/uL Monocytes # 0.5 (0-1.0) k/uL Eosinophils # 0.2 (0-0.7) k/uL Basophils # 0.0 (0-0.2) k/uL Manual Slide Review Performed PT (9.0-12.0) sec INR (<1.2) APTT (22.0-30.0) sec Sodium 140 (137-145) mmol/L Potassium 4.3 (3.5-5.1) mmol/L Chloride 115 H (98-107) mmol/L Carbon Dioxide 15 L (22-30) mmol/L Anion Gap 10 mmol/L BUN 16 (9-20) mg/dL Creatinine 1.14 (0.66-1.25) mg/dL Est GFR (CKD-EPI)AfAm >90 (>60 ml/min/1.73 sqM) Est GFR (CKD-EPI)NonAf 79 (>60 ml/min/1.73 sqM) Glucose 177 H (74-99) mg/dL Calcium 8.0 L (8.4-10.2) mg/dL Total Bilirubin 2.7 H (0.2-1.3) mg/dL AST 60 H (17-59) U/L ALT 19 (4-49) U/L Alkaline Phosphatase 76 (38-126) U/L Ammonia (<30) umol/L Total Protein 6.5 (6.3-8.2) g/dL Albumin 2.9 L (3.5-5.0) g/dL Amylase 138 H (30-110) U/L Lipase 619 H (23-300) U/L Urine Color Dark Brown Urine Appearance Clear (Clear) Urine pH 6.0 (5.0-8.0) Ur Specific [place] 1.044 H (1.001-1.035) Urine Protein 2+ H (Negative) Urine Glucose (UA) Negative (Negative) Urine Ketones Trace H (Negative) Urine Blood Negative (Negative) Urine Nitrite Negative (Negative) Urine Bilirubin 1+ H (Negative) Urine Urobilinogen 3.0 (<2.0) mg/dL Ur Leukocyte Esterase Negative (Negative) Urine RBC 25 H (0-5) /hpf Urine WBC 2 (0-5) /hpf Ur Squamous Epith Cells <1 (0-4) /hpf Hyaline Casts 42 H (0-2) /lpf Urine Mucus Moderate H (None) /hpf Serum Alcohol 153 mg/dL Blood Type Blood Type Recheck Bld Type Recheck Status Antibody Screen Spec Expiration Date 03/30/19 03/30/19 03/30/19 Range/Units 01:41 04:52 04:52 WBC (3.8-10.6) k/uL RBC (4.30-5.90) m/uL Hgb (13.0-17.5) gm/dL Hct (39.0-53.0) % MCV (80.0-100.0) fL MCH (25.0-35.0) pg MCHC (31.0-37.0) g/dL RDW (11.5-15.5) % Plt Count (150-450) k/uL Neutrophils % % Lymphocytes % % Monocytes % % Eosinophils % % Basophils % % Neutrophils # (1.3-7.7) k/uL Lymphocytes # (1.0-4.8) k/uL Monocytes # (0-1.0) k/uL Eosinophils # (0-0.7) k/uL Basophils # (0-0.2) k/uL Manual Slide Review PT 14.0 H (9.0-12.0) sec INR 1.4 H (<1.2) APTT 25.8 (22.0-30.0) sec Sodium (137-145) mmol/L Potassium (3.5-5.1) mmol/L Chloride (98-107) mmol/L Carbon Dioxide (22-30) mmol/L Anion Gap mmol/L BUN (9-20) mg/dL Creatinine (0.66-1.25) mg/dL Est GFR (CKD-EPI)AfAm (>60 ml/min/1.73 sqM) Est GFR (CKD-EPI)NonAf (>60 ml/min/1.73 sqM) Glucose (74-99) mg/dL Calcium (8.4-10.2) mg/dL Total Bilirubin (0.2-1.3) mg/dL AST (17-59) U/L ALT (4-49) U/L Alkaline Phosphatase (38-126) U/L Ammonia 80 H (<30) umol/L Total Protein (6.3-8.2) g/dL Albumin (3.5-5.0) g/dL Amylase (30-110) U/L Lipase (23-300) U/L Urine Color Urine Appearance (Clear) Urine pH (5.0-8.0) Ur Specific [place] (1.001-1.035) Urine Protein (Negative) Urine Glucose (UA) (Negative) Urine Ketones (Negative) Urine Blood (Negative) Urine Nitrite (Negative) Urine Bilirubin (Negative) Urine Urobilinogen (<2.0) mg/dL Ur Leukocyte Esterase (Negative) Urine RBC (0-5) /hpf Urine WBC (0-5) /hpf Ur Squamous Epith Cells (0-4) /hpf Hyaline Casts (0-2) /lpf Urine Mucus (None) /hpf Serum Alcohol mg/dL Blood Type O Negative Blood Type Recheck O Neg Bld Type Recheck Status No Antibody Screen NEGATIVE Spec Expiration Date 04/02/20192351 Disposition Clinical Impression: GI bleed, Ascites, Abdominal pain, Jaundice Disposition: ADMITTED IP TO THIS [facility] Condition: Stable Is patient prescribed a controlled substance at d/c from ED?: No Time of Disposition: 06:01
[2019-03-30] MEDS ORDERED: NALOXONE 0.4 MG/ML 1 ML VIAL IV PRN (06:01)
[2019-03-30] MEDS: MORPHINE SULFATE 4 MG/ML SYRINGE IV PRN ×5 (06:21→21:48)
[2019-03-30] MEDS ORDERED: NON FORMULARY DRUG (Vitamin B Complex [Vitamin B Complex] 1 CAP) PO SCH (09:00)
[2019-03-30] MEDS: METOPROLOL TARTRATE 25 MG TAB PO SCH ×2 (09:59→21:46)
[2019-03-30] MEDS: LACTULOSE 20 GM/30 ML CUP PO SCH ×4 (09:59→21:47)
[2019-03-30] MEDS ORDERED: INSULIN ASPART (NovoLOG) 100 UNIT/ML VIAL SQ SCH (10:00)
[2019-03-30] MEDS: MAGNESIUM OXIDE 400 MG TAB PO SCH ×3 (10:00→21:46)
[2019-03-30 10:53] LABS: Glucose,Whole Blood 123 mg/dL (75-99)
[2019-03-30] MEDS: MULTIVITAMINS, THERA 1 EACH TAB PO SCH (11:19)
[2019-03-30] MEDS: SPIRONOLACTONE 25 MG TAB PO SCH ×2 (11:19→21:47)
[2019-03-30] MEDS: RIFAXIMIN 550 MG TABLET PO SCH (11:20)
[2019-03-30] MEDS: FUROSEMIDE 20 MG TAB PO SCH ×2 (11:21→21:47)
[2019-03-30] MEDS: SODIUM CHLORIDE 0.9% 1,000 ML IV SCH ×2 (11:22→17:54)
[2019-03-30] MEDS: SUCRALFATE 1 GM TAB PO SCH ×3 (11:23→21:47)
[2019-03-30] MEDS: LIPASE 5,000/PROTEASE 17,000/AMYLASE 24,000 PO SCH ×2 (11:23→18:37)
--- NOTE | 2019-03-30 12:10 | P.HPIM ---
History of Present Illness H&P Date: 03/30/19 This is a 42-year-old male patient of Dr. Sarmad Linn. He has history of alcohol liver cirrhosis with portal hypertension and previous GI bleeding, hypertension and gastritis, pancreatitis, spinal stenosis and peripheral neuropathy. Patient also has chronic back pain and was under the c are of Dr. Lagunas but violated pain contract and no longer seen by pain management. He is also known to Dr. Ghazal Leiva from previous EGDs in the past finding gastritis consistent with portal gastropathy but no gastric or esophageal varices or active bleeding. He has had multipe admissions for acute GI bleed in Jan 2016, Mar 2016 and Mar 2017. He had admission for right leg abscess requiring I&D in December 2017. Patient states that he started vomiting last week with increasing abdominal pain. He states has been avoiding alcohol but had a drink on Thursday but it did not help his abdominal pain. Pain is in the right upper quadrant and epigastric area. He denies any lower extremity edema. He states he last saw Dr. Leiva about 3 weeks ago. During his last hospitalization in September 2018, patient did undergo paracentesis with removal of 3.8 L of fluid. Unclear when his last paracentesis was performed. Patient presented to [facility] emergency center WBC 7.3, hemoglobin 11.9, platelet count 47. Blood sugar 177 with no history of diabetes, chloride 1:15, CO2 15, BUN 16 creatinine 1.14. Total bilirubin 2.7, AST 60, ALT 19, alkaline phosphatase 76, amylase 138, lipase 619. Urinalysis dark brown, 2+ protein, trace ketones, bilirubin 1+. Serum alcohol level 158. Patient admitted to the [facility] floor and consults requested with interventional radiology for paracentesis and GI. Patient is currently nothing by mouth except for ice chips. Review of Systems Constitutional: Reports fatigue, Reports poor appetite, Reports weakness, Denies chills, Denies fever Eyes: denies blurred vision, denies pain Ears, nose, mouth and throat: Denies headache, Denies nasal congestion, Denies nasal discharge, Denies sore throat Cardiovascular: Denies chest pain, Denies decreased exercise tolerance, Denies dyspnea on exertion, Denies edema, Denies leg edema, Denies shortness of breath, Denies syncope Respiratory: Reports dyspnea, Denies cough, Denies cough with sputum, Denies excessive sputum, Denies hemoptysis, Denies home oxygen, Denies sleep apnea, Denies wheezing Gastrointestinal: Reports abdominal pain, Reports bloating, Reports loss of appetite, Reports nausea, Reports vomiting Genitourinary: Denies dysuria, Denies urinary retention Musculoskeletal: Denies frequent falls, Denies gait dysfunction, Denies muscle weakness, Denies myalgias Integumentary: Denies pruritus, Denies rash, Denies wounds Neurological: Denies change in mentation, Denies change in speech, Denies gait dysfunction, Denies numbness, Denies seizures, Denies weakness Psychiatric: Denies anxiety, Denies depression Endocrine: Denies fatigue, Denies weight change Past Medical History Past Medical History: GERD/Reflux, GI Bleed, Hypertension, Liver Disease, Thyroid Disorder Additional Past Medical History / Comment(s): Liver cirrhosis, portal htn, ETOH abuse, esophageal varicies, upper GI bleed, chronic thrombocytopenia, coagulopathy, pancytopenia, ascities, spinal stenosis: back/leg and feet pain, DDD, chronic back pain, neuropathy bilateral legs/feet, falls, bronchitis, past L rib fractures after fall off ladder,03-05-17 fall w/ head injury. 2010 Guillian [place], chronic pancreatitis History of Any Multi-Drug Resistant Organisms: None Reported Past Surgical History: Appendectomy, Joint Replacement Additional Past Surgical History / Comment(s): EGDs paracentesis, back injections, R thumb reattachment, circumcism. Past Anesthesia/Blood Transfusion Reactions: No Reported Reaction Additional Past Anesthesia/Blood Transfusion Reaction / Comment(s): Pt has received blood without reaction. Past Psychological History: Depression Additional Psychological History / Comment(s): Pt is on disability. He resides with his mother. He uses a cane to ambulate. He drives. Smoking Status: Current some day smoker Past Alcohol Use History: Daily, Occasional Additional Past Alcohol Use History / Comment(s): Patient is a smoker of a pack per day for 27 years. Patient states he quit one month ago which would be 08/23/2017. He denies any marijuana or street drug use. He does have history of heavy alcohol use with drinking up to a pint per day for 7 years but he currently is only drinking an occasional beer. He is on disability. He is currently living with his mother. He does have a dog in the home exposure to his daughter's cat. He uses a cane for ambulation. Past Drug Use History: Marijuana - Past Family History Father Family Medical History: Unable to Obtain Additional Family Medical History / Comment(s): Pt does not know his father's medical hx. Mother Family Medical History: No Reported History Additional Family Medical History / Comment(s): Mother is healthy. Brother(s) Additional Family Medical History / Comment(s): Patient has 3 brothers and one suffers from alcohol abuse. 2 brothers have no major medical problems. Patient does not have any sisters. Patient is one daughter 12 years old with no major medical problems. Medications and Allergies Home Medications Medication Instructions Recorded Confirmed Type Levothyroxine Sodium [Synthroid] 25 mcg PO DAILY 05/07/16 03/30/19 History Pantoprazole Sodium [Protonix] 20 mg PO BID 01/02/17 03/30/19 History Furosemide [Lasix] 20 mg PO BID 04/16/18 03/30/19 History Spironolactone [Aldactone] 25 mg PO BID 04/16/18 03/30/19 History Rifaximin [Xifaxan] 550 mg PO BID 08/02/18 03/30/19 History Sucralfate [Carafate] 1 gm PO ACHS 09/22/18 03/30/19 History Magnesium Oxide [Mag-Ox] 200 mg PO TID tab 09/24/18 03/30/19 Rx Thiamine [Vitamin B-1] 100 mg PO BID-W/MEALS tab 09/24/18 03/30/19 Rx Lipase/Protease/Amylase [Zenpep Dr 5,000 unit PO AC-TID 10/18/18 03/30/19 History 5,000 Unit Capsule] Multivitamins, Thera [Multivitamin 1 tab PO DAILY 10/18/18 03/30/19 History (formulary)] Vitamin B Complex 1 cap PO DAILY 10/18/18 03/30/19 History Lactulose [Constulose] 20 gm PO QID 03/11/19 03/30/19 History Metoprolol Tartrate [Lopressor] 25 mg PO BID 03/11/19 03/30/19 History Allergies Allergy/AdvReac Type Severity Reaction Status Date / Time No Known Allergies Allergy Verified 03/30/19 07:43 Physical Exam Vitals: Vital Signs Temp Pulse Pulse Resp BP BP Pulse Ox 03/30/19 07:53 98.9 F 88 16 111/73 97 03/30/19 06:01 98.9 F 88 18 109/84 94 L 03/30/19 04:04 98.7 F 84 17 107/94 96 03/30/19 01:03 98.4 F 95 18 107/71 95 Intake and Output 03/29/19 03/30/19 03/30/19 22:59 06:59 14:59 Other: Weight 62.142 kg 62.142 kg General appearance: average body habitus, cooperative, no distress - EENT Eyes: EOMI, PERRLA, no photophobia, poor dentition, no ptosis, scleral icterus ENT: hearing grossly normal, normal oropharynx Ears: bilateral: normal - Neck Neck: lymphadenopathy Carotids: bilateral: upstroke normal - Respiratory Respiratory: bilateral: CTA, negative: diminished, dullness, rales, rhonchi, wheezing - Cardiovascular Rhythm: regular Heart sounds: normal: S1, S2 Abnormal Heart Sounds: no systolic murmur, no diastolic murmur, no rub, no click - Gastrointestinal General gastrointestinal: decreased bowel sounds, distended with abdominal ascites, soft, tenderness Localized gastrointestinal: tender: diffuse, epigastric (worse), guarding: diffuse - Integumentary Integumentary: no cyanotic, jaundiced, no rash, no ulcer - Neurologic Neurologic: CNII-XII intact - Musculoskeletal Musculoskeletal: generalized weakness - Psychiatric Psychiatric: A&O x's 3, appropriate affect Results CBC & Chem 7: 03/30/19 01:41 03/30/19 01:41 Labs: Abnormal Lab Results - Last 24 Hours (Table) 03/30/19 03/30/19 03/30/19 Range/Units 01:41 01:41 01:41 RBC 3.95 L (4.30-5.90) m/uL Hgb 11.9 L (13.0-17.5) gm/dL Hct 37.9 L (39.0-53.0) % Plt Count 47 L D (150-450) k/uL Lymphocytes # 0.8 L (1.0-4.8) k/uL PT (9.0-12.0) sec INR (<1.2) Chloride 115 H (98-107) mmol/L Carbon Dioxide 15 L (22-30) mmol/L Glucose 177 H (74-99) mg/dL POC Glucose (mg/dL) (75-99) mg/dL Calcium 8.0 L (8.4-10.2) mg/dL Total Bilirubin 2.7 H (0.2-1.3) mg/dL AST 60 H (17-59) U/L Ammonia (<30) umol/L Albumin 2.9 L (3.5-5.0) g/dL Amylase 138 H (30-110) U/L Lipase 619 H (23-300) U/L Ur Specific [place] 1.044 H (1.001-1.035) Urine Protein 2+ H (Negative) Urine Ketones Trace H (Negative) Urine Bilirubin 1+ H (Negative) Urine RBC 25 H (0-5) /hpf Hyaline Casts 42 H (0-2) /lpf Urine Mucus Moderate H (None) /hpf 03/30/19 03/30/19 03/30/19 Range/Units 01:41 04:52 10:51 RBC (4.30-5.90) m/uL Hgb (13.0-17.5) gm/dL Hct (39.0-53.0) % Plt Count (150-450) k/uL Lymphocytes # (1.0-4.8) k/uL PT 14.0 H (9.0-12.0) sec INR 1.4 H (<1.2) Chloride (98-107) mmol/L Carbon Dioxide (22-30) mmol/L Glucose (74-99) mg/dL POC Glucose (mg/dL) 123 H (75-99) mg/dL Calcium (8.4-10.2) mg/dL Total Bilirubin (0.2-1.3) mg/dL AST (17-59) U/L Ammonia 80 H (<30) umol/L Albumin (3.5-5.0) g/dL Amylase (30-110) U/L Lipase (23-300) U/L Ur Specific [place] (1.001-1.035) Urine Protein (Negative) Urine Ketones (Negative) Urine Bilirubin (Negative) Urine RBC (0-5) /hpf Hyaline Casts (0-2) /lpf Urine Mucus (None) /hpf Thrombosis Risk Factor Assmnt - DVT/VTE Prophylaxis DVT/VTE Prophylaxis: Mechanical Prophylaxis ordered - Choose All That Apply Each Factor Represents 1 point: Age 41-60 years Other Risk Factors: No Other congenital or acquired thrombophilia - If yes, enter type in comment: No Thrombosis Risk Factor Assessment Total Risk Factor Score: 1 Thrombosis Risk Factor Assessment Level: Low Risk Assessment and Plan Plan: 1. Abdominal pain secondary to acute pancreatitis and underlying alcoholic liver cirrhosis with worsening ascites. The patient is currently iced chips only, IV fluids, interventional radiology for paracentesis. Consult with GI. Continue lactulose 20 mg 4 times daily, Zenpep 3 times daily, Xifaxan 550 mg twice daily, Aldactone 25 mg twice daily, Lasix 20 mg twice daily. 2. History of alcoholic liver disease with portal hypertension and previous episodes of acute GI bleed with acute blood loss anemia resulting in multiple hospitalizations for GI bleeding from esophageal varices status post banding. Continue Protonix 40 mg twice daily and Carafate. 3. Chronic pancytopenia secondary to chronic EtOH related bone marrow damage and portal hypertension causing splenic sequestration. Patient follows with hematology 4. Alcohol intoxication. Continue IV fluids, vitamins. 5. Spinal stenosis with peripheral neuropathy. 6. Tobacco use and dependence. Patient quit. 7. Hypothyroidism. Continue levothyroxine 25 g daily. 8. Recurrent depression. Patient was unable to tolerate Zoloft. 9. Peripheral neuropathy secondary to alcoholism and spinal stenosis. 10. Gastroesophageal reflux disease and GI prophylaxis. Continue Protonix and Carafate. 11. DVT prophylaxis. No heparin due to thrombocytopenia. SCDs and ANDREEA hose and early ambulation. Patient will be admitted to the hospital for a minimum of 2 night stay Discharge plan: Home Impression and plan of care have been directed as dictated by the signing physician. Giovana Kathleen nurse practitioner acting as scribe for signing physician.
[2019-03-30 14:00] LABS: Glucose,Whole Blood 127 mg/dL (75-99)
[2019-03-30] MEDS: PANTOPRAZOLE 40 MG/10 ML VIAL IVP SCH ×2 (14:13→21:56)
[2019-03-30 17:08] LABS: Glucose,Whole Blood 155 mg/dL (75-99)
[2019-03-30] MEDS: THIAMINE 100 MG TAB PO SCH (17:46)
[2019-03-30] MEDS: INSULIN ASPART (NovoLOG) 100 UNIT/ML VIAL SQ SCH (17:46)
[2019-03-30 20:37] LABS: Glucose,Whole Blood 164 mg/dL (75-99)
[2019-03-30] MEDS: HYDROCORTISONE 2.5% RECTAL CREAM 30 GM TUBE RECTAL SCH (21:47)
[2019-03-31] MEDS: SODIUM CHLORIDE 0.9% 1,000 ML IV SCH ×4 (00:05→16:52)
[2019-03-31 00:06] LABS: Glucose,Whole Blood 136 mg/dL (75-99)
[2019-03-31] MEDS: INSULIN ASPART (NovoLOG) 100 UNIT/ML VIAL SQ SCH ×4 (00:06→17:45)
[2019-03-31] MEDS: MORPHINE SULFATE 4 MG/ML SYRINGE IV PRN ×5 (02:27→19:45)
[2019-03-31 06:20] LABS: Glucose,Whole Blood 96 mg/dL (75-99)
[2019-03-31] MEDS: LEVOTHYROXINE 25 MCG TAB PO SCH (06:41)
--- NOTE | 2019-03-31 06:42 | P.CONS ---
History of Present Illness - Reason for Consult Consult date: 03/30/19 Ascites, alcoholic liver disease Requesting physician: Wilton Bateman - Chief Complaint Abdominal distention - History of Present Illness 43-year-old male with a known medical history of alcoholic liver disease, splenomegaly, alcoholic pancreatitis, chronic thrombocytopenia, previous esophageal varices, and portal hypertension who presented to the hospital for evaluation of abdominal pain and distention. The patient reports worsening abdominal distention with associated pain occurring over the last 7 days. He reports that he has been compliant with his diuretic therapy, currently on furosemide 20 mg twice daily and Aldactone 25 mg twice daily. He reports that he has a no salt added diet but has not stayed away from foods which are high in salt. He also feels as though he is had some loose bowel movements over the past 4-5 days, which he reports is secondary to eating spicy food. The patient has required paracentesis 2 times in the past. The patient denies any signs or symptoms of GI bleeding. His last EGD was 04/2018, at which time no varices were noted and gastritis was seen. On presentation the patient was found to have an ammonia 80, INR 1.4, WBC 7.3, hemoglobin 11.9, platelet count 47,000, total bilirubin 2.7, alkaline phosphatase 76, AST 60 and ALT 19, with a amylase of 138 and lipase of 619. Review of Systems REVIEW OF SYSTEMS: CONSTITUTIONAL: Denies any fevers, chills, but does report weight gain in association with his abdominal distention. CARDIOVASCULAR: Denies any chest pain, palpitations high or low blood pressures RESPIRATORY: Denies any shortness of breath, hemoptysis or cough. GENITOURINARY: No dysuria or hematuria. MUSCULOSKELETAL: No weakness reported. SKIN: Denies any new rashes or lesions, jaundice or pallor. PSYCHIATRIC: Denies any depression or anxiety, he does reports active alcohol abuse. NEUROLOGY: Denies headache, denies any new focal deficits. EARS/NOSE/THROAT: No recent hearing change, congestion, nasal discharge or sore throat. EYES: No pain in eyes, discharge or change in vision. GASTROINTESTINAL: As per HPI. Past Medical History Past Medical History: GERD/Reflux, GI Bleed, Hypertension, Liver Disease, Thyroid Disorder Additional Past Medical History / Comment(s): Liver cirrhosis, portal htn, ETOH abuse, esophageal varicies, upper GI bleed, chronic thrombocytopenia, coagulopathy, pancytopenia, ascities, spinal stenosis: back/leg and feet pain, DDD, chronic back pain, neuropathy bilateral legs/feet, falls, bronchitis, past L rib fractures after fall off ladder,03-05-17 fall w/ head injury. 2010 Guillian [place], chronic pancreatitis History of Any Multi-Drug Resistant Organisms: None Reported Past Surgical History: Appendectomy, Joint Replacement Additional Past Surgical History / Comment(s): EGDs paracentesis, back injections, R thumb reattachment, circumcism. Past Anesthesia/Blood Transfusion Reactions: No Reported Reaction Additional Past Anesthesia/Blood Transfusion Reaction / Comm: Pt has received blood without reaction. Past Psychological History: Depression Additional Psychological History / Comment(s): Pt is on disability. He resides with his mother. He uses a cane to ambulate. He drives. Smoking Status: Current some day smoker Past Alcohol Use History: Daily, Occasional Additional Past Alcohol Use History / Comment(s): Patient is a smoker of a pack per day for 27 years. Patient states he quit one month ago which would be 08/23/2017. He denies any marijuana or street drug use. He does have history of heavy alcohol use with drinking up to a pint per day for 7 years but he currently is only drinking an occasional beer. He is on disability. He is currently living with his mother. He does have a dog in the home exposure to his daughter's cat. He uses a cane for ambulation. Past Drug Use History: Marijuana - Past Family History Father Family Medical History: Unable to Obtain Additional Family Medical History / Comment(s): Pt does not know his father's medical hx. Mother Family Medical History: No Reported History Additional Family Medical History / Comment(s): Mother is healthy. Brother(s) Additional Family Medical History / Comment(s): Patient has 3 brothers and one suffers from alcohol abuse. 2 brothers have no major medical problems. Patient does not have any sisters. Patient is one daughter 12 years old with no major medical problems. Medications and Allergies Home Medications Medication Instructions Recorded Confirmed Type Levothyroxine Sodium [Synthroid] 25 mcg PO DAILY 05/07/16 03/30/19 History Pantoprazole Sodium [Protonix] 20 mg PO BID 01/02/17 03/30/19 History Furosemide [Lasix] 20 mg PO BID 04/16/18 03/30/19 History Spironolactone [Aldactone] 25 mg PO BID 04/16/18 03/30/19 History Rifaximin [Xifaxan] 550 mg PO BID 08/02/18 03/30/19 History Sucralfate [Carafate] 1 gm PO ACHS 09/22/18 03/30/19 History Magnesium Oxide [Mag-Ox] 200 mg PO TID tab 09/24/18 03/30/19 Rx Thiamine [Vitamin B-1] 100 mg PO BID-W/MEALS tab 09/24/18 03/30/19 Rx Lipase/Protease/Amylase [Zenpep Dr 5,000 unit PO AC-TID 10/18/18 03/30/19 History 5,000 Unit Capsule] Multivitamins, Thera [Multivitamin 1 tab PO DAILY 10/18/18 03/30/19 History (formulary)] Vitamin B Complex 1 cap PO DAILY 10/18/18 03/30/19 History Lactulose [Constulose] 20 gm PO QID 03/11/19 03/30/19 History Metoprolol Tartrate [Lopressor] 25 mg PO BID 03/11/19 03/30/19 History Allergies Allergy/AdvReac Type Severity Reaction Status Date / Time No Known Allergies Allergy Verified 03/30/19 07:43 Physical Exam Vitals: Vital Signs Temp Pulse Pulse Resp BP BP Pulse Ox 03/30/19 07:53 98.9 F 88 16 111/73 97 03/30/19 06:01 98.9 F 88 18 109/84 94 L 03/30/19 04:04 98.7 F 84 17 107/94 96 03/30/19 01:03 98.4 F 95 18 107/71 95 Intake and Output 03/29/19 03/30/19 03/30/19 22:59 06:59 14:59 Other: Weight 62.142 kg 62.142 kg On physical examination, patient appears comfortable in no apparent distress. HEAD: Normocephalic, atraumatic. EYES: No scleral icterus. No conjunctival injection. MOUTH: No lesions, tongue midline. NECK: Trachea midline, no gross abnormalities. CHEST: Clear to auscultation with no wheezing or rhonchi appreciated. HEART: Regular rate and rhythm. ABDOMEN: Soft, distended with positive fluid wave. Bowel sounds are positive. No organomegaly. No guarding or rigidity. EXTREMITIES: No pedal edema. SKIN: No rashes, no jaundice. NEUROLOGIC: Alert and oriented x3, somewhat tremulous but no asterixis noted. No focal deficits. Results CBC & Chem 7: 03/30/19 01:41 03/30/19 01:41 Labs: Abnormal Lab Results - Last 24 Hours (Table) 03/30/19 03/30/19 03/30/19 Range/Units 01:41 01:41 01:41 RBC 3.95 L (4.30-5.90) m/uL Hgb 11.9 L (13.0-17.5) gm/dL Hct 37.9 L (39.0-53.0) % Plt Count 47 L D (150-450) k/uL Lymphocytes # 0.8 L (1.0-4.8) k/uL PT (9.0-12.0) sec INR (<1.2) Chloride 115 H (98-107) mmol/L Carbon Dioxide 15 L (22-30) mmol/L Glucose 177 H (74-99) mg/dL POC Glucose (mg/dL) (75-99) mg/dL Calcium 8.0 L (8.4-10.2) mg/dL Total Bilirubin 2.7 H (0.2-1.3) mg/dL AST 60 H (17-59) U/L Ammonia (<30) umol/L Albumin 2.9 L (3.5-5.0) g/dL Amylase 138 H (30-110) U/L Lipase 619 H (23-300) U/L Ur Specific [place] 1.044 H (1.001-1.035) Urine Protein 2+ H (Negative) Urine Ketones Trace H (Negative) Urine Bilirubin 1+ H (Negative) Urine RBC 25 H (0-5) /hpf Hyaline Casts 42 H (0-2) /lpf Urine Mucus Moderate H (None) /hpf 03/30/19 03/30/19 03/30/19 Range/Units 01:41 04:52 10:51 RBC (4.30-5.90) m/uL Hgb (13.0-17.5) gm/dL Hct (39.0-53.0) % Plt Count (150-450) k/uL Lymphocytes # (1.0-4.8) k/uL PT 14.0 H (9.0-12.0) sec INR 1.4 H (<1.2) Chloride (98-107) mmol/L Carbon Dioxide (22-30) mmol/L Glucose (74-99) mg/dL POC Glucose (mg/dL) 123 H (75-99) mg/dL Calcium (8.4-10.2) mg/dL Total Bilirubin (0.2-1.3) mg/dL AST (17-59) U/L Ammonia 80 H (<30) umol/L Albumin (3.5-5.0) g/dL Amylase (30-110) U/L Lipase (23-300) U/L Ur Specific [place] (1.001-1.035) Urine Protein (Negative) Urine Ketones (Negative) Urine Bilirubin (Negative) Urine RBC (0-5) /hpf Hyaline Casts (0-2) /lpf Urine Mucus (None) /hpf Assessment and Plan (1) Alcoholic cirrhosis of liver Narrative/Plan: 43-year-old male with a known history of decompensated alcoholic cirrhosis with paracentesis intermittently in the past and on home diuretic therapy, as well as home treatment of encephalopathy and prior history of varices with varices noted to be obliterated on EGD in 04/2018 with only gastritis seen at that time who presented to the hospital with increasing abdominal distention. The patient does report compliance with his home diuretic therapy, but reports increasing abdominal distention over the past week. Current Visit: No Status: Acute Code(s): K70.30 - ALCOHOLIC CIRRHOSIS OF LIVER WITHOUT ASCITES SNOMED Code(s): 799397310 (2) Abdominal pain Current Visit: No Status: Acute Code(s): R10.9 - UNSPECIFIED ABDOMINAL PAIN SNOMED Code(s): 26407426 (3) Ascites Current Visit: No Status: Acute Code(s): R18.8 - OTHER ASCITES SNOMED Code(s): 143236442 (4) Encephalopathy Current Visit: No Status: Acute Code(s): G93.40 - ENCEPHALOPATHY, UNSPECIFIED SNOMED Code(s): 65176543 Plan: Supportive care Sodium restricted diet. Continue to monitor CBC, CMP, INR. Vitamin K ordered. Paracentesis with IR service. Continue Lasix and Aldactone. Continue lactulose titrated for 2-3 bowel movements daily and rifaximin. Alcohol abstinence Monitor for signs or symptoms of withdrawal. Thank you for allowing us to participate in the care of the patient
[2019-03-31 07:30] LABS: Glucose,Whole Blood 96 mg/dL (75-99)
[2019-03-31 10:15] LABS: MCH 30.7 pg (25.0-35.0); MCHC 32.2 g/dL (31.0-37.0); MCV 95.4 fL (80.0-100.0); RBC 3.14 m/uL (4.30-5.90); RDW 13.7 % (11.5-15.5); WBC 2.5 k/uL (3.8-10.6)
[2019-03-31 10:18] LABS: HGB 9.7 gm/dL (13.0-17.5); Platelet Count 22 k/uL (150-450)
[2019-03-31] MEDS: FUROSEMIDE 20 MG TAB PO SCH ×2 (10:56→22:00)
[2019-03-31] MEDS: LACTULOSE 20 GM/30 ML CUP PO SCH ×4 (10:56→22:04)
[2019-03-31] MEDS: MULTIVITAMINS, THERA 1 EACH TAB PO SCH (10:56)
[2019-03-31] MEDS: SUCRALFATE 1 GM TAB PO SCH ×4 (10:56→22:04)
[2019-03-31] MEDS: PANTOPRAZOLE 40 MG/10 ML VIAL IVP SCH ×2 (10:56→22:24)
[2019-03-31] MEDS: METOPROLOL TARTRATE 25 MG TAB PO SCH ×2 (10:57→22:03)
[2019-03-31] MEDS: THIAMINE 100 MG TAB PO SCH ×2 (10:57→17:44)
[2019-03-31] MEDS: MAGNESIUM OXIDE 400 MG TAB PO SCH ×3 (10:57→22:02)
[2019-03-31] MEDS: SPIRONOLACTONE 25 MG TAB PO SCH ×2 (10:57→22:01)
[2019-03-31] MEDS: LIPASE 5,000/PROTEASE 17,000/AMYLASE 24,000 PO SCH ×3 (10:59→17:46)
[2019-03-31] MEDS: RIFAXIMIN 550 MG TABLET PO SCH ×3 (10:59→22:01)
[2019-03-31] MEDS: HYDROCORTISONE 2.5% RECTAL CREAM 30 GM TUBE RECTAL SCH ×2 (11:05→22:24)
[2019-03-31 11:52] LABS: Amylase 73 U/L (30-110)
[2019-03-31 12:13] LABS: Glucose,Whole Blood 139 mg/dL (75-99)
--- NOTE | 2019-03-31 15:39 | P.PN ---
Subjective Progress Note Date: 03/31/19 This is a 42-year-old male patient of Dr. Sarmad Linn. He has history of alcohol liver cirrhosis with portal hypertension and previous GI bleeding, hypertension and gastritis, pancreatitis, spinal stenosis and peripheral neuropathy. Patient also has chronic back pain and was under the care of Dr. Lagunas but violated pain contract and no longer seen by pain management. He is also known to Dr. Ghazal Leiva from previous EGDs in the past finding gastritis consistent with portal gastropathy but no gastric or esophageal varices or active bleeding. He has had multipe admissions for acute GI bleed in Jan 2016, Mar 2016 and Mar 2017. He had admission for right leg abscess requiring I&D in December 2017. Patient states that he started vomiting last week with increasing abdominal pain. He states has been avoiding alcohol but had a drink on Thursday but it did not help his abdominal pain. Pain is in the right upper quadrant and epigastric area. He denies any lower extremity edema. He states he last saw Dr. Leiva about 3 weeks ago. During his last hospitalization in September 2018, patient did undergo paracentesis with removal of 3.8 L of fluid. Unclear when his last paracentesis was performed. Patient presented to [facility] emergency center WBC 7.3, hemoglobin 11.9, platelet count 47. Blood sugar 177 with no history of diabetes, chloride 1:15, CO2 15, BUN 16 creatinine 1.14. Total bilirubin 2.7, AST 60, ALT 19, alkaline phosphatase 76, amylase 138, lipase 619. Urinalysis dark brown, 2+ protein, trace ketones, bilirubin 1+. Serum alcohol level 158. Patient admitted to the [facility] floor and consults requested with interventional radiology for paracentesis and GI. Patient is currently nothing by mouth except for ice chips. 03/31: Repeat blood work reveals a normal lipase of 197, amylase 73, platelet count 22, hemoglobin 9.7, WBC 2.5. Labwork ordered for tomorrow anticipating paracentesis by interventional radiology tomorrow. GI is added and C. diff toxin and stool culture, stool for ova and parasite, lactoferrin. Patient is currently on a clear liquid diet. IV fluids will be decreased to 75 mL per hour. Review of Systems Constitutional: Reports fatigue, Reports poor appetite, Reports weakness, Denies chills, Denies fever Ears, nose, mouth and throat: Denies headache, Denies nasal congestion, Denies nasal discharge, Denies sore throat Cardiovascular: Denies chest pain, Denies decreased exercise tolerance, Denies dyspnea on exertion, Denies edema, Denies leg edema, Denies shortness of breath, Denies syncope Respiratory: Reports dyspnea, Denies cough, Denies cough with sputum, Denies excessive sputum, Denies hemoptysis, Denies home oxygen, Denies sleep apnea, Denies wheezing Gastrointestinal: Reports abdominal pain, Reports bloating, Reports loss of appetite, Reports nausea, Reports vomiting Genitourinary: Denies dysuria, Denies urinary retention Musculoskeletal: Denies frequent falls, Denies gait dysfunction, Denies muscle weakness, Denies myalgias Integumentary: Denies pruritus, Denies rash, Denies wounds Neurological: Denies change in mentation, Denies change in speech, Denies gait dysfunction, Denies numbness, Denies seizures, Denies weakness Psychiatric: Denies anxiety, Denies depression Endocrine: Denies fatigue, Denies weight change Objective - Vital Signs Vital signs: Vital Signs Temp 98.3 F 03/31/19 07:00 Pulse 74 03/31/19 07:00 Resp 16 03/31/19 07:00 BP 111/74 03/31/19 07:00 Pulse Ox 97 03/31/19 07:00 Intake & Output 03/30/19 03/31/19 03/31/19 18:59 06:59 18:59 Intake Total 590 Output Total 675 Balance -675 590 Weight 62.142 kg Intake: Oral 590 Output: Urine 675 Other: Voiding Method Toilet # Voids 11 - Exam General appearance: average body habitus, cooperative, no distress - EENT Eyes: EOMI, PERRLA, no photophobia, poor dentition, no ptosis, scleral icterus ENT: hearing grossly normal, normal oropharynx Ears: bilateral: normal - Neck Neck: lymphadenopathy Carotids: bilateral: upstroke normal - Respiratory Respiratory: bilateral: CTA, negative: diminished, dullness, rales, rhonchi, wheezing - Cardiovascular Rhythm: regular Heart sounds: normal: S1, S2 Abnormal Heart Sounds: no systolic murmur, no diastolic murmur, no rub, no click - Gastrointestinal General gastrointestinal: decreased bowel sounds, distended with abdominal ascites, soft, tenderness Localized gastrointestinal: tender: diffuse, epigastric (worse), guarding: diffuse - Integumentary Integumentary: no cyanotic, jaundiced, no rash, no ulcer - Neurologic Neurologic: CNII-XII intact - Musculoskeletal Musculoskeletal: generalized weakness - Psychiatric Psychiatric: A&O x's 3, appropriate affect - Labs CBC & Chem 7: 03/31/19 09:40 03/30/19 01:41 Labs: Abnormal Lab Results - Last 24 Hours (Table) 03/30/19 03/30/19 03/30/19 Range/Units 10:51 13:57 16:57 POC Glucose (mg/dL) 123 H 127 H 155 H (75-99) mg/dL 03/30/19 03/31/19 Range/Units 20:26 00:04 POC Glucose (mg/dL) 164 H 136 H (75-99) mg/dL Assessment and Plan Plan: 1. Abdominal pain secondary to acute pancreatitis and underlying alcoholic liver cirrhosis with worsening ascites. The patient is currently iced chips on ly, IV fluids, interventional radiology for paracentesis. Consult with GI. Continue lactulose 20 mg 4 times daily, Zenpep 3 times daily, Xifaxan 550 mg twice daily, Aldactone 25 mg twice daily, Lasix 20 mg twice daily. 2. History of alcoholic liver disease with portal hypertension and previous e pisodes of acute GI bleed with acute blood loss anemia resulting in multiple hospitalizations for GI bleeding from esophageal varices status post banding. Continue Protonix 40 mg twice daily and Carafate. 3. Chronic pancytopenia secondary to chronic EtOH related bone marrow damage and portal hypertension causing splenic sequestration. Patient follows with hematology 4. Alcohol intoxication. Continue IV fluids, vitamins. 5. Spinal stenosis with peripheral neuropathy. 6. Tobacco use and dependence. Patient quit. 7. Hypothyroidism. Continue levothyroxine 25 g daily. 8. Recurrent depression. Patient was unable to tolerate Zoloft. 9. Peripheral neuropathy secondary to alcoholism and spinal stenosis. 10. Gastroesophageal reflux disease and GI prophylaxis. Continue Protonix and Carafate. 11. DVT prophylaxis. No heparin due to thrombocytopenia. SCDs and ANDREEA hose and early ambulation. 12. Diarrhea. Stool to be sent for C. difficile toxin, lactoferrin, ova and parasites, culture. Discharge plan: Home Impression and plan of care have been directed as dictated by the signing physician. Giovana Kathleen nurse practitioner acting as scribe for signing physician.
[2019-03-31 17:34] LABS: Glucose,Whole Blood 157 mg/dL (75-99)
--- NOTE | 2019-03-31 21:40 | P.PN ---
Subjective Progress Note Date: 03/31/19 Principal diagnosis: Decompensated alcoholic cirrhosis of liver Patient was seen lying in bed. No further bowel movements after presentation. No further signs or symptoms of GI bleeding. He is tolerating his diet. Abdomen is still distended. Objective - Vital Signs Vital signs: Vital Signs Temp 98.3 F 03/31/19 07:00 Pulse 74 03/31/19 07:00 Resp 16 03/31/19 07:00 BP 111/74 03/31/19 07:00 Pulse Ox 97 03/31/19 07:00 Intake & Output 03/30/19 03/31/19 03/31/19 18:59 06:59 18:59 Intake Total 590 700 Output Total 675 Balance -675 590 700 Weight 62.142 kg 62.142 kg Intake: Oral 590 700 Output: Urine 675 Other: Voiding Method Toilet Toilet # Voids 11 - Exam On physical examination, patient appears comfortable in no apparent distress. HEAD: Normocephalic, atraumatic. EYES: No scleral icterus. No conjunctival injection. MOUTH: No lesions, tongue midline. NECK: Trachea midline, no gross abnormalities. CHEST: Clear to auscultation with no wheezing or rhonchi appreciated. ABDOMEN: Soft, moderately distended. Bowel sounds are positive. No organomegaly. No guarding or rigidity. EXTREMITIES: No pedal edema. SKIN: No rashes, no jaundice. NEUROLOGIC: Alert and oriented x3. No focal deficits. - Labs CBC & Chem 7: 03/31/19 09:40 03/30/19 01:41 Labs: Abnormal Lab Results - Last 24 Hours (Table) 03/30/19 03/30/19 03/31/19 Range/Units 16:57 20:26 00:04 WBC (3.8-10.6) k/uL RBC (4.30-5.90) m/uL Hgb (13.0-17.5) gm/dL Hct (39.0-53.0) % Plt Count (150-450) k/uL POC Glucose (mg/dL) 155 H 164 H 136 H (75-99) mg/dL 03/31/19 03/31/19 Range/Units 09:40 12:02 WBC 2.5 L (3.8-10.6) k/uL RBC 3.14 L (4.30-5.90) m/uL Hgb 9.7 L D (13.0-17.5) gm/dL Hct 30.0 L (39.0-53.0) % Plt Count 22 L D (150-450) k/uL POC Glucose (mg/dL) 139 H (75-99) mg/dL Assessment and Plan (1) Alcoholic cirrhosis of liver Narrative/Plan: 43-year-old male with a known history of decompensated alcoholic cirrhosis with paracentesis intermittently in the past and on home diuretic therapy, as well as home treatment of encephalopathy and prior history of varices with varices noted to be obliterated on EGD in 04/2018 with only gastritis seen at that time who presented to the hospital with increasing abdominal distention. The patient does report compliance with his home diuretic therapy, but reports increasing abdominal distention over the past week. Current Visit: No Status: Acute Code(s): K70.30 - ALCOHOLIC CIRRHOSIS OF LIVER WITHOUT ASCITES SNOMED Code(s): 193430866 (2) Abdominal pain Current Visit: Yes Status: Acute Code(s): R10.9 - UNSPECIFIED ABDOMINAL PAIN SNOMED Code(s): 91829246 (3) Ascites Current Visit: Yes Status: Acute Code(s): R18.8 - OTHER ASCITES SNOMED Code(s): 609145500 (4) Encephalopathy Current Visit: Yes Status: Acute Code(s): G93.40 - ENCEPHALOPATHY, UNSPECIFIED SNOMED Code(s): 77880469 Plan: Supportive care Sodium restricted diet. Continue to monitor CBC, CMP, INR. Paracentesis with IR service pending. Continue Lasix and Aldactone. Continue lactulose titrated for 2-3 bowel movements daily and rifaximin. Alcohol abstinence Monitor for signs or symptoms of withdrawal. Thank you for allowing us to participate in the care of the patient
[2019-04-01 01:36] LABS: Glucose,Whole Blood 99 mg/dL (75-99)
[2019-04-01] MEDS: INSULIN ASPART (NovoLOG) 100 UNIT/ML VIAL SQ SCH ×5 (01:38→23:57)
[2019-04-01] MEDS: MORPHINE SULFATE 4 MG/ML SYRINGE IV PRN (01:42)
[2019-04-01] MEDS ORDERED: HYDROmorphone 0.5 MG/0.5 ML SYRINGE IVP PRN (03:45)
[2019-04-01] MEDS: HYDROmorphone 2 MG/ML 1 ML SYRINGE IVP PRN ×2 (04:40→07:47)
[2019-04-01 06:06] LABS: Glucose,Whole Blood 103 mg/dL (75-99)
[2019-04-01 07:08] LABS: HCT 31.4 % (39.0-53.0); HGB 10.1 gm/dL (13.0-17.5); MCH 30.8 pg (25.0-35.0); MCHC 32.2 g/dL (31.0-37.0); MCV 95.7 fL (80.0-100.0); Mean Platelet Volume 8.7; RBC 3.28 m/uL (4.30-5.90); RDW 14.1 % (11.5-15.5); WBC 3.9 k/uL (3.8-10.6)
[2019-04-01 07:12] LABS: INR 1.6 (<1.2); Prothrombin Time 15.7 sec (9.0-12.0)
[2019-04-01 07:14] LABS: Platelet Count 25 k/uL (150-450)
[2019-04-01 07:19] LABS: ALT 15 U/L (4-49); AST 40 U/L (17-59); African American GFR (CKD) >90 (>60 ml/min/1.73 sqM); Albumin 2.6 g/dL (3.5-5.0); Alkaline Phosphatase 80 U/L (38-126); Anion Gap 8 mmol/L; Blood Urea Nitrogen 15 mg/dL (9-20); Calcium 7.5 mg/dL (8.4-10.2); Carbon Dioxide 17 mmol/L (22-30); Chloride 113 mmol/L (98-107); Glucose 98 mg/dL (74-99); Non-African American GFR(CKD) >90 (>60 ml/min/1.73 sqM); Potassium 3.7 mmol/L (3.5-5.1); Sodium 138 mmol/L (137-145); Total Bilirubin 3.9 mg/dL (0.2-1.3)
[2019-04-01] MEDS: SODIUM CHLORIDE 0.9% 1,000 ML IV SCH ×2 (07:21→21:53)
[2019-04-01] MEDS: LEVOTHYROXINE 25 MCG TAB PO SCH (07:21)
[2019-04-01] MEDS: THIAMINE 100 MG TAB PO SCH ×2 (08:00→16:17)
[2019-04-01] MEDS: MULTIVITAMINS, THERA 1 EACH TAB PO SCH (08:00)
[2019-04-01] MEDS: SUCRALFATE 1 GM TAB PO SCH ×4 (08:00→21:56)
[2019-04-01] MEDS: HYDROCORTISONE 2.5% RECTAL CREAM 30 GM TUBE RECTAL SCH ×2 (08:00→21:56)
[2019-04-01] MEDS: SPIRONOLACTONE 25 MG TAB PO SCH ×2 (08:00→21:51)
[2019-04-01] MEDS: RIFAXIMIN 550 MG TABLET PO SCH ×2 (08:00→21:51)
[2019-04-01] MEDS: LIPASE 5,000/PROTEASE 17,000/AMYLASE 24,000 PO SCH ×3 (08:00→16:18)
[2019-04-01] MEDS: FUROSEMIDE 40 MG TAB PO SCH ×2 (08:00→16:17)
[2019-04-01] MEDS: LACTULOSE 20 GM/30 ML CUP PO SCH ×4 (08:00→21:49)
[2019-04-01] MEDS: PANTOPRAZOLE 40 MG/10 ML VIAL IVP SCH ×2 (08:01→21:49)
[2019-04-01] MEDS: METOPROLOL TARTRATE 25 MG TAB PO SCH ×2 (08:01→21:51)
[2019-04-01] MEDS: MAGNESIUM OXIDE 400 MG TAB PO SCH ×3 (08:01→21:51)
--- NOTE | 2019-04-01 10:46 | US ---
EXAMINATION TYPE: US abdomen limited DATE OF EXAM: 04/01/2019 COMPARISON: NONE CLINICAL HISTORY: assess for fluid pocket please. Ascites. Large amount of ascites seen. IMPRESSION: As above
[2019-04-01 11:47] LABS: Glucose,Whole Blood 121 mg/dL (75-99)
[2019-04-01] MEDS: HYDROmorphone 1 MG/ML 1 ML SYRINGE IVP PRN ×4 (12:40→21:48)
--- NOTE | 2019-04-01 13:04 | P.PN ---
Subjective Progress Note Date: 04/01/19 This is a 42-year-old male patient of Dr. Sarmad Linn. He has history of alcohol liver cirrhosis with portal hypertension and previous GI bleeding, hypertension and gastritis, pancreatitis, spinal stenosis and peripheral neuropathy. Patient also has chronic back pain and was under the care of Dr. Lagunas but violated pain contract and no longer seen by pain management. He is also known to Dr. Ghazal Leiva from previous EGDs in the past finding gastritis consistent with portal gastropathy but no gastric or esophageal varices or active bleeding. He has had multipe admissions for acute GI bleed in Jan 2016, Mar 2016 and Mar 2017. He had admission for right leg abscess requiring I&D in December 2017. Patient states that he started vomiting last week with increasing abdominal pain. He states has been avoiding alcohol but had a drink on Thursday but it did not help his abdominal pain. Pain is in the right upper quadrant and epigastric area. He denies any lower extremity edema. He states he last saw Dr. Leiva about 3 weeks ago. During his last hospitalization in September 2018, patient did undergo paracentesis with removal of 3.8 L of fluid. Unclear when his last paracentesis was performed. Patient presented to [facility] emergency center WBC 7.3, hemoglobin 11.9, platelet count 47. Blood sugar 177 with no history of diabetes, chloride 1:15, CO2 15, BUN 16 creatinine 1.14. Total bilirubin 2.7, AST 60, ALT 19, alkaline phosphatase 76, amylase 138, lipase 619. Urinalysis dark brown, 2+ protein, trace ketones, bilirubin 1+. Serum alcohol level 158. Patient admitted to the [facility] floor and consults requested with interventional radiology for paracentesis and GI. Patient is currently nothing by mouth except for ice chips. 03/31: Repeat blood work reveals a normal lipase of 197, amylase 73, platelet count 22, hemoglobin 9.7, WBC 2.5. Labwork ordered for tomorrow anticipating paracentesis by interventional radiology tomorrow. GI is added and C. diff toxin and stool culture, stool for ova and parasite, lactoferrin. Patient is currently on a clear liquid diet. IV fluids will be decreased to 75 mL per hour. 04/01: Patient has significant pain during the night and morphine was changed to Dilaudid 2 mg every 3 hours. The patient states that Dilaudid did help his pain. He denies any nausea vomiting. He states he continues to have abdominal pain and he has ascites present. Plan was for Dr. Olea to perform paracentesis today, however, there are only enough platelets in house for one patient and these are being saved for open heart surgery patient. Platelets could be obtained from outside the hospital but will take a minimum of 3 hours to obtain and will not allow enough time for transfusion before IR is gone for the day. Paracentesis will be delayed until Thursday at noon. PLTs to be transfused prior to procedure. Patient is currently on clear liquid diet but taking very little. Stool lactoferrin positive, cryptosporidium negative, giardia negative. Review of Systems Constitutional: Reports fatigue, Reports poor appetite, reports anorexia, Reports weakness, Denies chills, Denies fever Ears, nose, mouth and throat: Denies headache, Denies nasal congestion, Denies nasal discharge, Denies sore throat Cardiovascular: Denies chest pain, Denies decreased exercise tolerance, Denies dyspnea on exertion, Denies edema, Denies leg edema, Denies shortness of breath, Denies syncope Respiratory: Reports dyspnea, Denies cough, Denies cough with sputum, Denies excessive sputum, Denies hemoptysis, Denies home oxygen, Denies sleep apnea, Denies wheezing Gastrointestinal: Reports abdominal pain, Reports bloating, Reports loss of appetite, denies nausea, denies vomiting Genitourinary: Denies dysuria, Denies urinary retention Musculoskeletal: Denies frequent falls, Denies gait dysfunction, Denies muscle weakness, Denies myalgias Integumentary: Denies pruritus, Denies rash, Denies wounds Neurological: Denies change in mentation, Denies change in speech, Denies gait dysfunction, Denies numbness, Denies seizures, Denies weakness Psychiatric: Denies anxiety, Denies depression Endocrine: Denies fatigue, Denies weight change Objective - Vital Signs Vital signs: Vital Signs Temp 98.2 F 04/01/19 07:00 Pulse 98 04/01/19 08:25 Resp 16 04/01/19 08:25 BP 126/89 04/01/19 07:00 Pulse Ox 95 04/01/19 07:00 Intake & Output 03/31/19 04/01/19 04/01/19 18:59 06:59 18:59 Intake Total 700 Output Total 2 Balance 700 -2 Weight 62.142 kg Intake: Oral 700 Output: Urine 2 Other: Voiding Method Toilet Toilet Toilet - Exam General appearance: average body habitus, cooperative, no distress - EENT Eyes: EOMI, PERRLA, no photophobia, poor dentition, no ptosis, scleral icterus ENT: hearing grossly normal, normal oropharynx Ears: bilateral: normal - Neck Neck: lymphadenopathy Carotids: bilateral: upstroke normal - Respiratory Respiratory: bilateral: CTA, negative: diminished, dullness, rales, rhonchi, wheezing - Cardiovascular Rhythm: regular Heart sounds: normal: S1, S2 Abnormal Heart Sounds: no systolic murmur, no diastolic murmur, no rub, no click - Gastrointestinal General gastrointestinal: decreased bowel sounds, distended with abdominal ascites, soft, tenderness Localized gastrointestinal: tender: diffuse, epigastric (worse) - Integumentary Integumentary: no cyanotic, jaundiced, no rash, no ulcer - Neurologic Neurologic: CNII-XII intact - Musculoskeletal Musculoskeletal: generalized weakness - Psychiatric Psychiatric: A&O x's 3, appropriate affect - Labs CBC & Chem 7: 04/01/19 06:32 04/01/19 06:32 Labs: Abnormal Lab Results - Last 24 Hours (Table) 03/31/19 03/31/19 04/01/19 Range/Units 16:00 17:33 05:55 RBC (4.30-5.90) m/uL Hgb (13.0-17.5) gm/dL Hct (39.0-53.0) % Plt Count (150-450) k/uL PT (9.0-12.0) sec INR (<1.2) Chloride (98-107) mmol/L Carbon Dioxide (22-30) mmol/L POC Glucose (mg/dL) 157 H 103 H (75-99) mg/dL Calcium (8.4-10.2) mg/dL Total Bilirubin (0.2-1.3) mg/dL Ammonia (<30) umol/L Total Protein (6.3-8.2) g/dL Albumin (3.5-5.0) g/dL Stool Lactoferrin POSITIVE H (NEGATIVE) 04/01/19 04/01/19 04/01/19 Range/Units 06:32 06:32 06:32 RBC 3.28 L (4.30-5.90) m/uL Hgb 10.1 L (13.0-17.5) gm/dL Hct 31.4 L (39.0-53.0) % Plt Count 25 L (150-450) k/uL PT 15.7 H (9.0-12.0) sec INR 1.6 H (<1.2) Chloride 113 H (98-107) mmol/L Carbon Dioxide 17 L (22-30) mmol/L POC Glucose (mg/dL) (75-99) mg/dL Calcium 7.5 L (8.4-10.2) mg/dL Total Bilirubin 3.9 H (0.2-1.3) mg/dL Ammonia (<30) umol/L Total Protein 6.0 L (6.3-8.2) g/dL Albumin 2.6 L (3.5-5.0) g/dL Stool Lactoferrin (NEGATIVE) 04/01/19 04/01/19 Range/Units 06:32 11:45 RBC (4.30-5.90) m/uL Hgb (13.0-17.5) gm/dL Hct (39.0-53.0) % Plt Count (150-450) k/uL PT (9.0-12.0) sec INR (<1.2) Chloride (98-107) mmol/L Carbon Dioxide (22-30) mmol/L POC Glucose (mg/dL) 121 H (75-99) mg/dL Calcium (8.4-10.2) mg/dL Total Bilirubin (0.2-1.3) mg/dL Ammonia 37 H (<30) umol/L Total Protein (6.3-8.2) g/dL Albumin (3.5-5.0) g/dL Stool Lactoferrin (NEGATIVE) Microbiology - Last 24 Hours (Table) 03/31/19 16:00 Stool Culture - Preliminary Stool Assessment and Plan Plan: 1. Abdominal pain secondary to acute pancreatitis and underlying alcoholic liver cirrhosis with worsening ascites. Continue clear liquid diet, IV fluids, interventional radiology for paracentesis scheduled for Thursday at noon with PLT transfusion prior. Consult with GI. Continue lactulose 20 mg 4 times daily, Zenpep 3 times daily, Xifaxan 550 mg twice daily, Aldactone 25 mg twice daily, Lasix 20 mg twice daily. 2. History of alcoholic liver disease with portal hypertension and previous episodes of acute GI bleed with acute blood loss anemia resulting in multiple hospitalizations for GI bleeding from esophageal varices status post banding. Continue Protonix 40 mg twice daily and Carafate. 3. Chronic pancytopenia secondary to chronic EtOH related bone marrow damage and portal hypertension causing splenic sequestration. Patient follows with hematology 4. Alcohol intoxication. Continue IV fluids, vitamins. 5. Spinal stenosis with peripheral neuropathy. 6. Tobacco use and dependence. Patient quit. 7. Hypothyroidism. Continue levothyroxine 25 g daily. 8. Recurrent depression. Patient was unable to tolerate Zoloft. 9. Peripheral neuropathy secondary to alcoholism and spinal stenosis. 10. Gastroesophageal reflux disease and GI prophylaxis. Continue Protonix and Carafate. 11. DVT prophylaxis. No heparin due to thrombocytopenia. SCDs and ANDREEA hose and early ambulation. 12. Diarrhea. Stool to be sent for C. difficile toxin. Lactoferrin, ova and parasites negative, culture in progress. Discharge plan: Home Impression and plan of care have been directed as dictated by the signing physician. Giovana Kathleen nurse practitioner acting as scribe for signing physician.
--- NOTE | 2019-04-01 15:48 | P.PN ---
Subjective Progress Note Date: 04/01/19 Principal diagnosis: Decompensated alcoholic cirrhosis of liver Patient was seen lying in bed. Overall reporting that abdomen is still distended and he is awaiting paracentesis today. No further diarrhea. Objective - Vital Signs Vital signs: Vital Signs Temp 98.2 F 04/01/19 15:00 Pulse 89 04/01/19 15:00 Resp 16 04/01/19 15:00 BP 117/75 04/01/19 15:00 Pulse Ox 97 04/01/19 15:00 Intake & Output 03/31/19 04/01/19 04/01/19 18:59 06:59 18:59 Intake Total 700 625 Output Total 2 Balance 700 -2 625 Weight 62.142 kg Intake: Intake, IV Titration 600 Amount Sodium Chloride 0.9% 1, 600 000 ml @ 75 mls/hr IV . [id number] Rx#:[id number] Oral 700 25 Output: Urine 2 Other: Voiding Method Toilet Toilet Toilet # Voids 1 - Exam On physical examination, patient appears comfortable in no apparent distress. HEAD: Normocephalic, atraumatic. EYES: No scleral icterus. No conjunctival injection. MOUTH: No lesions, tongue midline. NECK: Trachea midline, no gross abnormalities. CHEST: Clear to auscultation with no wheezing or rhonchi appreciated. ABDOMEN: Soft, moderately distended. Bowel sounds are positive. No organomegaly. No guarding or rigidity. EXTREMITIES: No pedal edema. SKIN: No rashes, no jaundice. NEUROLOGIC: Alert and oriented x3. No focal deficits. - Labs CBC & Chem 7: 04/01/19 06:32 04/01/19 06:32 Labs: Abnormal Lab Results - Last 24 Hours (Table) 03/31/19 03/31/19 04/01/19 Range/Units 16:00 17:33 05:55 RBC (4.30-5.90) m/uL Hgb (13.0-17.5) gm/dL Hct (39.0-53.0) % Plt Count (150-450) k/uL PT (9.0-12.0) sec INR (<1.2) Chloride (98-107) mmol/L Carbon Dioxide (22-30) mmol/L POC Glucose (mg/dL) 157 H 103 H (75-99) mg/dL Calcium (8.4-10.2) mg/dL Total Bilirubin (0.2-1.3) mg/dL Ammonia (<30) umol/L Total Protein (6.3-8.2) g/dL Albumin (3.5-5.0) g/dL Stool Lactoferrin POSITIVE H (NEGATIVE) 04/01/19 04/01/19 04/01/19 Range/Units 06:32 06:32 06:32 RBC 3.28 L (4.30-5.90) m/uL Hgb 10.1 L (13.0-17.5) gm/dL Hct 31.4 L (39.0-53.0) % Plt Count 25 L (150-450) k/uL PT 15.7 H (9.0-12.0) sec INR 1.6 H (<1.2) Chloride 113 H (98-107) mmol/L Carbon Dioxide 17 L (22-30) mmol/L POC Glucose (mg/dL) (75-99) mg/dL Calcium 7.5 L (8.4-10.2) mg/dL Total Bilirubin 3.9 H (0.2-1.3) mg/dL Ammonia (<30) umol/L Total Protein 6.0 L (6.3-8.2) g/dL Albumin 2.6 L (3.5-5.0) g/dL Stool Lactoferrin (NEGATIVE) 04/01/19 04/01/19 Range/Units 06:32 11:45 RBC (4.30-5.90) m/uL Hgb (13.0-17.5) gm/dL Hct (39.0-53.0) % Plt Count (150-450) k/uL PT (9.0-12.0) sec INR (<1.2) Chloride (98-107) mmol/L Carbon Dioxide (22-30) mmol/L POC Glucose (mg/dL) 121 H (75-99) mg/dL Calcium (8.4-10.2) mg/dL Total Bilirubin (0.2-1.3) mg/dL Ammonia 37 H (<30) umol/L Total Protein (6.3-8.2) g/dL Albumin (3.5-5.0) g/dL Stool Lactoferrin (NEGATIVE) Microbiology - Last 24 Hours (Table) 03/31/19 16:00 Stool Culture - Preliminary Stool Assessment and Plan (1) Alcoholic cirrhosis of liver Narrative/Plan: 43-year-old male with a known history of decompensated alcoholic cirrhosis with paracentesis intermittently in the past and on home diuretic therapy, as well as home treatment of encephalopathy and prior history of varices with varices noted to be obliterated on EGD in 04/2018 with only gastritis seen at that time who presented to the hospital with increasing abdominal distention. The patient does report compliance with his home diuretic therapy, but reports increasing abdominal distention over the past week. Current Visit: No Status: Acute Code(s): K70.30 - ALCOHOLIC CIRRHOSIS OF LIVER WITHOUT ASCITES SNOMED Code(s): 382798362 (2) Abdominal pain Current Visit: Yes Status: Acute Code(s): R10.9 - UNSPECIFIED ABDOMINAL PAIN SNOMED Code(s): 31913721 (3) Ascites Current Visit: Yes Status: Acute Code(s): R18.8 - OTHER ASCITES SNOMED Code(s): 807675655 (4) Encephalopathy Current Visit: Yes Status: Acute Code(s): G93.40 - ENCEPHALOPATHY, UNSPECIFIED SNOMED Code(s): 82048688 Plan: Supportive care Sodium restricted diet. Continue to monitor CBC, CMP, INR. Paracentesis with IR service pending, for today. Continue Lasix and Aldactone. Continue lactulose titrated for 2-3 bowel movements daily and rifaximin. Alcohol abstinence Monitor for signs or symptoms of withdrawal. Thank you for allowing us to participate in the care of the patient
[2019-04-01 16:53] LABS: Glucose,Whole Blood 164 mg/dL (75-99)
[2019-04-01 23:57] LABS: Glucose,Whole Blood 125 mg/dL (75-99)
[2019-04-02] MEDS: HYDROmorphone 1 MG/ML 1 ML SYRINGE IVP PRN ×4 (00:07→08:12)
[2019-04-02] MEDS: LEVOTHYROXINE 25 MCG TAB PO SCH (05:22)
[2019-04-02 05:26] LABS: Glucose,Whole Blood 111 mg/dL (75-99)
[2019-04-02] MEDS: INSULIN ASPART (NovoLOG) 100 UNIT/ML VIAL SQ SCH ×3 (05:26→17:35)
[2019-04-02] MEDS: SPIRONOLACTONE 25 MG TAB PO SCH ×2 (08:13→19:34)
[2019-04-02] MEDS: MAGNESIUM OXIDE 400 MG TAB PO SCH ×3 (08:13→22:24)
[2019-04-02] MEDS: SUCRALFATE 1 GM TAB PO SCH ×4 (08:13→19:29)
[2019-04-02] MEDS: LACTULOSE 20 GM/30 ML CUP PO SCH ×4 (08:13→22:24)
[2019-04-02] MEDS: FUROSEMIDE 40 MG TAB PO SCH ×2 (08:14→15:58)
[2019-04-02] MEDS: THIAMINE 100 MG TAB PO SCH ×2 (08:14→17:38)
[2019-04-02] MEDS: METOPROLOL TARTRATE 25 MG TAB PO SCH ×2 (08:15→19:34)
[2019-04-02] MEDS: PANTOPRAZOLE 40 MG/10 ML VIAL IVP SCH ×2 (08:15→19:33)
[2019-04-02] MEDS: RIFAXIMIN 550 MG TABLET PO SCH ×2 (08:15→19:34)
[2019-04-02] MEDS: MULTIVITAMINS, THERA 1 EACH TAB PO SCH (08:15)
[2019-04-02] MEDS: LIPASE 5,000/PROTEASE 17,000/AMYLASE 24,000 PO SCH ×3 (08:15→17:38)
--- NOTE | 2019-04-02 10:38 | PN ---
PROGRESS NOTE DATE OF DICTATION: 04/02/2019 Patient is a 43-year-old pleasant white male with history of alcoholic cirrhosis of the liver and ascites, admitted to the hospital with worsening ascites. He was scheduled for paracentesis yesterday; however, because of low platelets the procedure was postponed to Thursday. In the meantime, he remains on Lasix 40 mg twice daily as well as Aldactone 25 mg twice daily. He complains of abdominal pain and abdominal distention. He denies any nausea, vomiting. He denies any confusion. PHYSICAL EXAMINATION: He appears comfortable. No apparent distress. Vital signs are stable. Blood pressure 151/75, pulse rate 129, temperature 97.7. HEENT examination unremarkable. Conjunctivae pink. Sclerae anicteric. Oral cavity no lesions. NECK: No JVD or lymph node enlargement. CHEST: Clear to auscultation. HEART: Regular rate and rhythm. ABDOMEN: Soft. It was tense, distended. Mild tenderness. EXTREMITIES: One plus pedal edema. SKIN: No rashes. NEUROLOGIC: He is alert and oriented x3. No focal deficits. LABS: No labs are available from today. Yesterday WBC was 3.9, hemoglobin 10.1, platelets 25,000. INR is 1.6. BUN and creatinine are 15 and 0.8, respectively. T-bilirubin 3.9. AST and ALT are 40 and 15, respectively. Ammonia was 80 and yesterday it was 37. IMPRESSION: 1. Alcoholic cirrhosis of the liver with gradual decompensation. 2. Tense ascites, present on Lasix 40 mg twice daily and Aldactone 25 mg twice daily. Patient was scheduled for large-volume paracentesis yesterday but it was postponed because of low platelets. It has been rescheduled for Thursday. 3. Pancytopenia secondary to underlying cirrhosis of the liver with portal hypertension. 4. Elevated BUN and mild elevation of serum transaminases secondary to alcoholic hepatitis/underlying cirrhosis of the liver. RECOMMENDATIONS: 1. Continue with Lasix 40 mg twice daily. 2. Increase Aldactone to 100 mg twice daily. 3. Low-salt diet. 4. Paracentesis on Thursday after platelet transfusion. 5. Continue with Xifaxan and lactulose for hepatic encephalopathy. 6. Will follow with you closely. Thank you for this consultation. MMODL / IJN: [id number] /
[2019-04-02] MEDS: HYDROmorphone 2 MG/ML 1 ML SYRINGE IVP PRN ×4 (11:32→22:24)
--- NOTE | 2019-04-02 12:11 | P.PN ---
Subjective Progress Note Date: 04/02/19 This is a 42-year-old male patient of Dr. Sarmad Linn. He has history of alcohol liver cirrhosis with portal hypertension and previous GI bleeding, hypertension and gastritis, pancreatitis, spinal stenosis and peripheral neuropathy. Patient also has chronic back pain and was under the care of Dr. Lagunas but violated pain contract and no longer seen by pain management. He is also known to Dr. Ghazal Leiva from previous EGDs in the past finding gastritis consistent with portal gastropathy but no gastric or esophageal varices or active bleeding. He has had multipe admissions for acute GI bleed in Jan 2016, Mar 2016 and Mar 2017. He had admission for right leg abscess requiring I&D in December 2017. Patient states that he started vomiting last week with increasing abdominal pain. He states has been avoiding alcohol but had a drink on Thursday but it did not help his abdominal pain. Pain is in the right upper quadrant and epigastric area. He denies any lower extremity edema. He states he last saw Dr. Leiva about 3 weeks ago. During his last hospitalization in September 2018, patient did undergo paracentesis with removal of 3.8 L of fluid. Unclear when his last paracentesis was performed. Patient presented to [facility] emergency center WBC 7.3, hemoglobin 11.9, platelet count 47. Blood sugar 177 with no history of diabetes, chloride 1:15, CO2 15, BUN 16 creatinine 1.14. Total bilirubin 2.7, AST 60, ALT 19, alkaline phosphatase 76, amylase 138, lipase 619. Urinalysis dark brown, 2+ protein, trace ketones, bilirubin 1+. Serum alcohol level 158. Patient admitted to the [facility] floor and consults requested with interventional radiology for paracentesis and GI. Patient is currently nothing by mouth except for ice chips. 03/31: Repeat blood work reveals a normal lipase of 197, amylase 73, platelet count 22, hemoglobin 9.7, WBC 2.5. Labwork ordered for tomorrow anticipating paracentesis by interventional radiology tomorrow. GI is added and C. diff toxin and stool culture, stool for ova and parasite, lactoferrin. Patient is currently on a clear liquid diet. IV fluids will be decreased to 75 mL per hour. 04/01: Patient has significant pain during the night and morphine was changed to Dilaudid 2 mg every 3 hours. The patient states that Dilaudid did help his pain. He denies any nausea vomiting. He states he continues to have abdominal pain and he has ascites present. Plan was for Dr. Olea to perform paracentesis today, however, there are only enough platelets in house for one patient and these are being saved for open heart surgery patient. Platelets could be obtained from outside the hospital but will take a minimum of 3 hours to obtain and will not allow enough time for transfusion before IR is gone for the day. Paracentesis will be delayed until Thursday at noon. PLTs to be transfused prior to procedure. Patient is currently on clear liquid diet but taking very little. Stool lactoferrin positive, cryptosporidium negative, giardia negative. 04/02: Patient continues to have significant pain. Patient states that the Dil audid at 2 mg was too much. However 1 mg is not enough. Patient is requesting 1.5 mg of Dilaudid to help with pain. Patient denies any nausea or vomiting however his appetite has decreased due to the discomfort and ascites present. Paracentesis is scheduled for Thursday at 12. Awaiting platelets prior to the procedure. Review of Systems Constitutional: Reports fatigue, Reports poor appetite, reports anorexia, Reports weakness, Denies chills, Denies fever Ears, nose, mouth and throat: Denies headache, Denies nasal congestion, Denies nasal discharge, Denies sore throat Cardiovascular: Denies chest pain, Denies decreased exercise tolerance, Denies dyspnea on exertion, Denies edema, Denies leg edema, Denies shortness of breath, Denies syncope Respiratory: Reports dyspnea, Denies cough, Denies cough with sputum, Denies excessive sputum, Denies hemoptysis, Denies home oxygen, Denies sleep apnea, Denies wheezing Gastrointestinal: Reports abdominal pain, Reports bloating, Reports loss of a ppetite, denies nausea, denies vomiting Genitourinary: Denies dysuria, Denies urinary retention Musculoskeletal: Denies frequent falls, Denies gait dysfunction, Denies muscle weakness, Denies myalgias Integumentary: Denies pruritus, Denies rash, Denies wounds Neurological: Denies change in mentation, Denies change in speech, Denies gait dysfunction, Denies numbness, Denies seizures, Denies weakness Psychiatric: Denies anxiety, Denies depression Endocrine: Denies fatigue, Denies weight change Objective - Vital Signs Vital signs: Vital Signs Temp 97.7 F 04/02/19 07:00 Pulse 129 H 04/02/19 07:00 Resp 18 04/02/19 07:00 BP 131/75 04/02/19 07:00 Pulse Ox 92 L 04/02/19 07:00 Intake & Output 04/01/19 04/02/19 04/02/19 18:59 06:59 18:59 Intake Total 625 825 Output Total 650 Balance 625 175 Intake: Intake, IV Titration 600 825 Amount Sodium Chloride 0.9% 1, 600 825 000 ml @ 75 mls/hr IV . [id number] AWA Rx#:[id number] Oral 25 Output: Urine 650 Other: Voiding Method Toilet # Voids 1 3 - Exam General Appearance: Alert, cooperative, no distress, appears older stated age. Neck HEENT: Supple, no lymphadenopathy, no thyroid enlargement, no carotid bruits. Lungs: Clear to auscultation without crackles or wheezes no rhonchi, no deformity. Chest Wall: Chest wall normal expansion with deep inspiration no tenderness and no deformity was found on exam, no costochondral pain or discomfort. Heart: Regular rate and rhythm, S1, S2 normal, no murmur, rub or gallop. Back: Symmetric, no curvature, ROM normal, no CVA tenderness. Abdomen: Decreased bowel sounds, distended with abdominal ascites, soft with tenderness diffuse epigastric region worse Extremities: Extremities normal, atraumatic, no cyanosis or edema. Generalized weakness Pulses: 2+ and symmetric. Skin: Skin color, texture, tugor normal, no rashes or lesions. No jaundice Neurologic: Alert oriented x3 cranial nerves II through XII intact, no motor deficit, no abnormal balance or gait - Labs CBC & Chem 7: 04/01/19 06:32 04/01/19 06:32 Labs: Abnormal Lab Results - Last 24 Hours (Table) 04/01/19 04/01/19 04/02/19 Range/Units 16:52 23:55 05:25 POC Glucose (mg/dL) 164 H 125 H 111 H (75-99) mg/dL Assessment and Plan Plan: 1. Abdominal pain secondary to acute pancreatitis and underlying alcoholic liver cirrhosis with worsening ascites. Continue clear liquid diet, IV fluids, interventional radiology for paracentesis scheduled for Thursday at noon with PLT transfusion prior. GI consult appreciated Continue lactulose 20 mg 4 times daily, Zenpep 3 times daily, Xifaxan 550 mg twice daily, Aldactone 25 mg twice daily, Lasix 20 mg twice daily. Increase Dilaudid to 1.5 mg every 4 hours. 2. History of alcoholic liver disease with portal hypertension and previous episodes of acute GI bleed with acute blood loss anemia resulting in multiple hospitalizations for GI bleeding from esophageal varices status post banding. Continue Protonix 40 mg twice daily and Carafate. 3. Chronic pancytopenia secondary to chronic EtOH related bone marrow damage and portal hypertension causing splenic sequestration. Patient follows with hematology 4. Alcohol intoxication. Continue IV fluids, vitamins. 5. Spinal stenosis with peripheral neuropathy. 6. Tobacco use and dependence. Patient quit. 7. Hypothyroidism. Continue levothyroxine 25 g daily. 8. Recurrent depression. Patient was unable to tolerate Zoloft. 9. Peripheral neuropathy secondary to alcoholism and spinal stenosis. 10. Gastroesophageal reflux disease and GI prophylaxis. Continue Protonix and Carafate. 11. DVT prophylaxis. No heparin due to thrombocytopenia. SCDs and ANDREEA hose and early ambulation. 12. Diarrhea. Stool to be sent for C. difficile toxin. Lactoferrin, ova and parasites negative, culture in progress. CODE STATUS: Full code Discharge plan: Home Impression and plan of care have been directed as dictated by the signing physician. Cassandra Riddle nurse practitioner acting as scribe for signing physician.
[2019-04-02 12:32] LABS: Glucose,Whole Blood 124 mg/dL (75-99)
[2019-04-02] MEDS: HYDROCORTISONE 2.5% RECTAL CREAM 30 GM TUBE RECTAL SCH ×2 (12:39→19:39)
[2019-04-02] MEDS: SODIUM CHLORIDE 0.9% 1,000 ML IV SCH ×2 (12:41→22:29)
[2019-04-02 17:29] LABS: Glucose,Whole Blood 136 mg/dL (75-99)
[2019-04-03 00:08] LABS: Glucose,Whole Blood 122 mg/dL (75-99)
[2019-04-03] MEDS: INSULIN ASPART (NovoLOG) 100 UNIT/ML VIAL SQ SCH ×5 (00:09→23:33)
[2019-04-03] MEDS: HYDROmorphone 2 MG/ML 1 ML SYRINGE IVP PRN ×7 (01:22→23:35)
[2019-04-03] MEDS: LEVOTHYROXINE 25 MCG TAB PO SCH (05:28)
[2019-04-03 05:31] LABS: Glucose,Whole Blood 129 mg/dL (75-99)
[2019-04-03] MEDS: MULTIVITAMINS, THERA 1 EACH TAB PO SCH (08:56)
[2019-04-03] MEDS: LIPASE 5,000/PROTEASE 17,000/AMYLASE 24,000 PO SCH ×3 (08:56→16:35)
[2019-04-03] MEDS: SUCRALFATE 1 GM TAB PO SCH ×4 (08:56→19:51)
[2019-04-03] MEDS: LACTULOSE 20 GM/30 ML CUP PO SCH ×5 (08:56→20:34)
[2019-04-03] MEDS: FUROSEMIDE 40 MG TAB PO SCH ×2 (08:56→16:36)
[2019-04-03] MEDS: PANTOPRAZOLE 40 MG/10 ML VIAL IVP SCH ×2 (08:56→19:51)
[2019-04-03] MEDS: MAGNESIUM OXIDE 400 MG TAB PO SCH ×3 (08:56→20:34)
[2019-04-03] MEDS: RIFAXIMIN 550 MG TABLET PO SCH ×2 (08:57→19:51)
[2019-04-03] MEDS: SPIRONOLACTONE 25 MG TAB PO SCH ×2 (08:57→19:50)
[2019-04-03] MEDS: THIAMINE 100 MG TAB PO SCH ×2 (08:57→16:36)
[2019-04-03] MEDS: METOPROLOL TARTRATE 25 MG TAB PO SCH ×2 (08:57→19:51)
[2019-04-03] MEDS: HYDROCORTISONE 2.5% RECTAL CREAM 30 GM TUBE RECTAL SCH ×2 (08:59→19:51)
--- NOTE | 2019-04-03 09:57 | PN ---
PROGRESS NOTE The patient is a 43-year-old white male with history of alcoholic cirrhosis of the liver with portal hypertension and ascites, admitted to hospital with hepatic encephalopathy and ascites. Is scheduled for large volume paracentesis tomorrow. He continues to complain of diffuse abdominal pain, abdominal distention. No nausea, vomiting. No fever, chills, night sweats. PHYSICAL EXAMINATION: Blood pressure 119/83, pulse rate 97, temperature 98.4. HEENT examination unremarkable. Conjunctivae pink. Sclerae anicteric. Oral cavity no lesions. NECK: No JVD or lymph node enlargement. CHEST: Clear to auscultation. HEART: Regular rate and rhythm. ABDOMEN: Soft. Bowel sounds are positive. No organomegaly. EXTREMITIES: No pedal edema. SKIN: No rashes. NEUROLOGIC: Alert and oriented x3. No focal deficits. LABORATORY DATA: Labs from today are not done. IMPRESSION: 1. Alcoholic cirrhosis of the liver with portal hypertension and ascites with gradual decompensation. 2. Tense ascites, presently on Lasix 40 mg twice daily and Aldactone 25 mg b.i.d. scheduled for large-volume paracentesis tomorrow. 3. Hepatic encephalopathy with improving ammonia levels on lactulose and Xifaxan. 4. Thrombocytopenia with a platelet count of 25,000 yesterday and mild coagulopathy. All related to underlying chronic advanced liver disease. RECOMMENDATIONS: 1. Repeat labs in the morning. 2. Schedule for large-volume paracentesis after platelet transfusion tomorrow. 3. Increase Aldactone to 100 mg twice daily. 4. Continue with Lasix 40 mg twice daily. 5. Low-salt diet. 6. Continue with Xifaxan and lactulose and we will follow with you closely during his hospital stay. Thank you for this consultation. MMODL / IJN: [id number] /
--- NOTE | 2019-04-03 10:22 | P.PN ---
Subjective Progress Note Date: 04/03/19 This is a 42-year-old male patient of Dr. Sarmad Linn. He has history of alcohol liver cirrhosis with portal hypertension and previous GI bleeding, hypertension and gastritis, pancreatitis, spinal stenosis and peripheral neuropathy. Patient also has chronic back pain and was under the care of Dr. Lagunas but violated pain contract and no longer seen by pain management. He is also known to Dr. Ghazal Leiva from previous EGDs in the past finding gastritis consistent with portal gastropathy but no gastric or esophageal varices or active bleeding. He has had multipe admissions for acute GI bleed in Jan 2016, Mar 2016 and Mar 2017. He had admission for right leg abscess requiring I&D in December 2017. Patient states that he started vomiting last week with increasing abdominal pain. He states has been avoiding alcohol but had a drink on Thursday but it did not help his abdominal pain. Pain is in the right upper quadrant and epigastric area. He denies any lower extremity edema. He states he last saw Dr. Leiva about 3 weeks ago. During his last hospitalization in September 2018, patient did undergo paracentesis with removal of 3.8 L of fluid. Unclear when his last paracentesis was performed. Patient presented to [facility] emergency center WBC 7.3, hemoglobin 11.9, platelet count 47. Blood sugar 177 with no history of diabetes, chloride 1:15, CO2 15, BUN 16 creatinine 1.14. Total bilirubin 2.7, AST 60, ALT 19, alkaline phosphatase 76, amylase 138, lipase 619. Urinalysis dark brown, 2+ protein, trace ketones, bilirubin 1+. Serum alcohol level 158. Patient admitted to the [facility] floor and consults requested with interventional radiology for paracentesis and GI. Patient is currently nothing by mouth except for ice chips. 03/31: Repeat blood work reveals a normal lipase of 197, amylase 73, platelet count 22, hemoglobin 9.7, WBC 2.5. Labwork ordered for tomorrow anticipating paracentesis by interventional radiology tomorrow. GI is added and C. diff toxin and stool culture, stool for ova and parasite, lactoferrin. Patient is currently on a clear liquid diet. IV fluids will be decreased to 75 mL per hour. 04/01: Patient has significant pain during the night and morphine was changed to Dilaudid 2 mg every 3 hours. The patient states that Dilaudid did help his pain. He denies any nausea vomiting. He states he continues to have abdominal pain and he has ascites present. Plan was for Dr. Olea to perform paracentesis today, however, there are only enough platelets in house for one patient and these are being saved for open heart surgery patient. Platelets could be obtained from outside the hospital but will take a minimum of 3 hours to obtain and will not allow enough time for transfusion before IR is gone for the day. Paracentesis will be delayed until Thursday at noon. PLTs to be transfused prior to procedure. Patient is currently on clear liquid diet but taking very little. Stool lactoferrin positive, cryptosporidium negative, giardia negative. 2: Patient continues to have significant pain. Patient states that the Dil audid at 2 mg was too much. However 1 mg is not enough. Patient is requesting 1.5 mg of Dilaudid to help with pain. Patient denies any nausea or vomiting however his appetite has decreased due to the discomfort and ascites present. Paracentesis is scheduled for Thursday at 12. Awaiting platelets prior to the procedure. 04/03: She continues to have abdominal pain. Denies any difficulty breathing. Patient states that he is unable to eat a little bit more. Denies any nausea or vomiting. Will receive platelets tomorrow prior to the paracentesis. Aldactone has increased to 100 mg. Patient has been afebrile. Vital signs have been stable. Review of Systems Constitutional: Reports fatigue, Reports poor appetite, reports anorexia, Reports weakness, Denies chills, Denies fever Ears, nose, mouth and throat: Denies headache, Denies nasal congestion, Denies nasal discharge, Denies sore throat Cardiovascular: Denies chest pain, Denies decreased exercise tolerance, Denies dyspnea on exertion, Denies edema, Denies leg edema, Denies shortness of breath, Denies syncope Respiratory: Reports dyspnea, Denies cough, Denies cough with sputum, Denies excessive sputum, Denies hemoptysis, Denies home oxygen, Denies sleep apnea, Denies wheezing Gastrointestinal: Reports abdominal pain, Reports bloating, Reports loss of appetite, denies nausea, denies vomiting Genitourinary: Denies dysuria, Denies urinary retention Musculoskeletal: Denies frequent falls, Denies gait dysfunction, Denies muscle weakness, Denies myalgias Integumentary: Denies pruritus, Denies rash, Denies wounds Neurological: Denies change in mentation, Denies change in speech, Denies gait dysfunction, Denies numbness, Denies seizures, Denies weakness Psychiatric: Denies anxiety, Denies depression Endocrine: Denies fatigue, Denies weight change Objective - Vital Signs Vital signs: Vital Signs Temp 98.7 F 04/03/19 07:00 Pulse 82 04/03/19 07:00 Resp 16 04/03/19 07:00 BP 125/85 04/03/19 07:00 Pulse Ox 93 L 04/03/19 07:00 Intake & Output 04/02/19 04/03/19 04/03/19 18:59 06:59 18:59 Intake Total 100 1065 Balance 100 1065 Intake: Intake, IV Titration 825 Amount Sodium Chloride 0.9% 1, 825 000 ml @ 75 mls/hr IV . [id number] AWA Rx#:[id number] Oral 100 240 Other: Voiding Method Toilet # Voids 1 2 - Exam General Appearance: Alert, cooperative, no distress, appears older stated age. Neck HEENT: Supple, no lymphadenopathy, no thyroid enlargement, no carotid bruits. Lungs: Clear to auscultation without crackles or wheezes no rhonchi, no deformity. Chest Wall: Chest wall normal expansion with deep inspiration no tenderness and no deformity was found on exam, no costochondral pain or discomfort. Heart: Regular rate and rhythm, S1, S2 normal, no murmur, rub or gallop. Back: Symmetric, no curvature, ROM normal, no CVA tenderness. Abdomen: Decreased bowel sounds, distended with abdominal ascites, soft with tenderness diffuse epigastric region worse Extremities: Extremities normal, atraumatic, no cyanosis or edema. Generalized weakness Pulses: 2+ and symmetric. Skin: Skin color, texture, tugor normal, no rashes or lesions. No jaundice Neurologic: Alert oriented x3 cranial nerves II through XII intact, no motor deficit, no abnormal balance or gait - Labs CBC & Chem 7: 04/01/19 06:32 04/01/19 06:32 Labs: Abnormal Lab Results - Last 24 Hours (Table) 04/02/19 04/02/19 04/03/19 Range/Units 12:30 17:27 00:07 POC Glucose (mg/dL) 124 H 136 H 122 H (75-99) mg/dL 04/03/19 Range/Units 05:29 POC Glucose (mg/dL) 129 H (75-99) mg/dL Microbiology - Last 24 Hours (Table) 03/31/19 16:00 Stool Culture - Preliminary Stool Assessment and Plan Plan: 1. Abdominal pain secondary to acute pancreatitis and underlying alcoholic liver cirrhosis with worsening ascites. Continue clear liquid diet, IV fluids, interventional radiology for paracentesis scheduled for Thursday at noon with PLT transfusion prior. GI consult appreciated Continue lactulose 20 mg 4 times daily, Zenpep 3 times daily, Xifaxan 550 mg twice daily, Aldactone 100 mg twice daily, Lasix 40 mg twice daily. Increase Dilaudid to 1.5 mg every 4 hours. 2. History of alcoholic liver disease with portal hypertension and previous episodes of acute GI bleed with acute blood loss anemia resulting in multiple hospitalizations for GI bleeding from esophageal varices status post banding. Continue Protonix 40 mg twice daily and Carafate. 3. Chronic pancytopenia secondary to chronic EtOH related bone marrow damage and portal hypertension causing splenic sequestration. Patient follows with hematology 4. Alcohol intoxication. Continue IV fluids, vitamins. 5. Spinal stenosis with peripheral neuropathy. 6. Tobacco use and dependence. Patient quit. 7. Hypothyroidism. Continue levothyroxine 25 g daily. 8. Recurrent depression. Patient was unable to tolerate Zoloft. 9. Peripheral neuropathy secondary to alcoholism and spinal stenosis. 10. Gastroesophageal reflux disease and GI prophylaxis. Continue Protonix and Carafate. 11. DVT prophylaxis. No heparin due to thrombocytopenia. SCDs and ANDREEA hose and early ambulation. 12. Diarrhea. Stool to be sent for C. difficile toxin. Lactoferrin, ova and parasites negative, culture in progress. CODE STATUS: Full code Discharge plan: Home Impression and plan of care have been directed as dictated by the signing physician. Cassandra Riddle nurse practitioner acting as scribe for signing physician.
[2019-04-03 11:43] LABS: Glucose,Whole Blood 127 mg/dL (75-99)
[2019-04-03] MEDS: SODIUM CHLORIDE 0.9% 1,000 ML IV SCH (13:03)
[2019-04-03 16:55] LABS: Glucose,Whole Blood 142 mg/dL (75-99)
[2019-04-03 23:33] LABS: Glucose,Whole Blood 142 mg/dL (75-99)
[2019-04-04] MEDS: HYDROmorphone 2 MG/ML 1 ML SYRINGE IVP PRN ×3 (03:00→10:12)
[2019-04-04 04:56] LABS: Glucose,Whole Blood 131 mg/dL (75-99)
[2019-04-04] MEDS: LEVOTHYROXINE 25 MCG TAB PO SCH (05:51)
[2019-04-04] MEDS: INSULIN ASPART (NovoLOG) 100 UNIT/ML VIAL SQ SCH ×2 (05:51→11:56)
[2019-04-04] MEDS: SUCRALFATE 1 GM TAB PO SCH ×2 (08:29→11:56)
[2019-04-04] MEDS: THIAMINE 100 MG TAB PO SCH (08:29)
[2019-04-04] MEDS: FUROSEMIDE 40 MG TAB PO SCH (08:29)
[2019-04-04] MEDS: LIPASE 5,000/PROTEASE 17,000/AMYLASE 24,000 PO SCH ×2 (08:29→11:56)
[2019-04-04] MEDS: HYDROCORTISONE 2.5% RECTAL CREAM 30 GM TUBE RECTAL SCH (08:29)
[2019-04-04] MEDS: METOPROLOL TARTRATE 25 MG TAB PO SCH (08:30)
[2019-04-04] MEDS: MAGNESIUM OXIDE 400 MG TAB PO SCH (08:30)
[2019-04-04] MEDS: SPIRONOLACTONE 25 MG TAB PO SCH (08:30)
[2019-04-04] MEDS: MULTIVITAMINS, THERA 1 EACH TAB PO SCH (08:30)
[2019-04-04] MEDS: RIFAXIMIN 550 MG TABLET PO SCH (08:30)
[2019-04-04] MEDS: LACTULOSE 20 GM/30 ML CUP PO SCH ×2 (08:30→11:56)
[2019-04-04] MEDS: PANTOPRAZOLE 40 MG/10 ML VIAL IVP SCH (09:03)
[2019-04-04 09:05] LABS: Basophils # (A) 0.1 k/uL (0-0.2); Basophils % (A) 1 %; Eosinophils # (A) 0.3 k/uL (0-0.7); Eosinophils % (A) 4 %; HCT 34.6 % (39.0-53.0); HGB 11.1 gm/dL (13.0-17.5); Hypochromasia Slight; Lymphocytes % (A) 16 %; MCH 31.4 pg (25.0-35.0); MCHC 32.2 g/dL (31.0-37.0); MCV 97.5 fL (80.0-100.0); Mean Platelet Volume 9.6; Monocytes # (A) 0.5 k/uL (0-1.0); Monocytes % (A) 8 %; Neutrophils # (A) 4.7 k/uL (1.3-7.7); Neutrophils % (A) 70 %; RBC 3.55 m/uL (4.30-5.90); RDW 14.9 % (11.5-15.5); WBC 6.7 k/uL (3.8-10.6)
[2019-04-04 09:12] LABS: Platelet Count 42 k/uL (150-450)
[2019-04-04 09:31] LABS: ALT 14 U/L (4-49); AST 44 U/L (17-59); African American GFR (CKD) >90 (>60 ml/min/1.73 sqM); Albumin 2.8 g/dL (3.5-5.0); Alkaline Phosphatase 82 U/L (38-126); Anion Gap 12 mmol/L; Blood Urea Nitrogen 9 mg/dL (9-20); Calcium 8.1 mg/dL (8.4-10.2); Carbon Dioxide 16 mmol/L (22-30); Chloride 109 mmol/L (98-107); Glucose 121 mg/dL (74-99); Non-African American GFR(CKD) >90 (>60 ml/min/1.73 sqM); Potassium 3.4 mmol/L (3.5-5.1); Sodium 137 mmol/L (137-145); Total Bilirubin 4.2 mg/dL (0.2-1.3); Total Protein 6.3 g/dL (6.3-8.2)
--- NOTE | 2019-04-04 10:15 | P.DS ---
Providers Date of admission: 03/30/19 06:01 Expected date of discharge: 04/04/19 Attending physician: Wilton Bateman Consults: 03/30/19 06:01 Consult Physician Stat Consulting Provider: Mehul Olea Consult Reason/Comments: paracentesis Do you want consulting provider notified?: Already Contacted 03/30/19 09:00 Consult Physician Routine Consulting Provider: Scot Augustine Consult Reason/Comments: pancreatitis, ascites Do you want consulting provider notified?: Yes Primary care physician: Pablo Linn [facility] Course: This is a 42-year-old male patient of Dr. Sarmad Linn. He has history of alcohol liver cirrhosis with portal hypertension and previous GI bleeding, hypertension and gastritis, pancreatitis, spinal stenosis and peripheral neuropathy. Patient also has chronic back pain and was under the care of Dr. Lagunas but violated pain contract and no longer seen by pain management. He is also known to Dr. Ghazal Leiva from previous EGDs in the past fin ding gastritis consistent with portal gastropathy but no gastric or esophageal varices or active bleeding. He has had multipe admissions for acute GI bleed in Jan 2016, Mar 2016 and Mar 2017. He had admission for right leg abscess requiring I&D in December 2017. Patient states that he started vomiting last week with increasing abdominal pain. He states has been avoiding alcohol but had a drink on Thursday but it did not help his abdominal pain. Pain is in the right upper quadrant and epigastric area. He denies any lower extremity edema. He states he last saw Dr. Leiva about 3 weeks ago. During his last hospitalization in September 2018, patient did undergo paracentesis with removal of 3.8 L of fluid. Unclear when his last paracentesis was performed. Patient presented to [facility] emergency center WBC 7.3, hemoglobin 11.9, platelet count 47. Blood sugar 177 with no history of diabetes, chloride 1:15, CO2 15, BUN 16 creatinine 1.14. Total bilirubin 2.7, AST 60, ALT 19, alkaline phosphatase 76, amylase 138, lipase 619. Urinalysis dark brown, 2+ protein, trace ketones, bilirubin 1+. Serum alcohol level 158. Patient admitted to the [facility] floor and consults requested with interventional radiology for paracentesis and GI. Patient is currently nothing by mouth except for ice chips. 03/31: Repeat blood work reveals a normal lipase of 197, amylase 73, platelet count 22, hemoglobin 9.7, WBC 2.5. Labwork ordered for tomorrow anticipating paracentesis by interventional radiology tomorrow. GI is added and C. diff toxin and stool culture, stool for ova and parasite, lactoferrin. Patient is currently on a clear liquid diet. IV fluids will be decreased to 75 mL per hour. 04/01: Patient has significant pain during the night and morphine was changed to Dilaudid 2 mg every 3 hours. The patient states that Dilaudid did help his pain. He denies any nausea vomiting. He states he continues to have abdominal pain and he has ascites present. Plan was for Dr. Olea to perform paracentesis today, however, there are only enough platelets in house for one patient and these are being saved for open heart surgery patient. Platelets could be obtained from outside the hospital but will take a minimum of 3 hours to obtain and will not allow enough time for transfusion before IR is gone for the day. Paracentesis will be delayed until Thursday at noon. PLTs to be transfused prior to procedure. Patient is currently on clear liquid diet but taking very little. Stool lactoferrin positive, cryptosporidium negative, giardia negative. 04/02: Patient continues to have significant pain. Patient states that the Dilaudid at 2 mg was too much. However 1 mg is not enough. Patient is requesting 1.5 mg of Dilaudid to help with pain. Patient denies any nausea or vomiting however his appetite has decreased due to the discomfort and ascites present. Paracentesis is scheduled for Thursday at 12. Awaiting platelets prior to the procedure. 2: She continues to have abdominal pain. Denies any difficulty breathing. Patient states that he is unable to eat a little bit more. Denies any nausea or vomiting. Will receive platelets tomorrow prior to the paracentesis. Aldactone has increased to 100 mg. Patient has been afebrile. Vital signs have been stable. 04/04: Patient has been afebrile, heart rate 100, blood pressure 121/80, pulse ox 95% on room air. Repeat blood work reveals hemoglobin 11.1, platelet count 42, potassium 3.4, chloride 109, CO2 16, BUN 9, creatinine 0.81. Patient was transfused 1 unit of platelets and underwent paracentesis with removal of 4.75 L. Patient will be fed and discharge home later today. Patient is requesting a prescription for tramadol for home. Patient has been provided a prescription for 3 days' worth of tramadol. Patient completed start talking form alcohol questions were answered. Patient's map score is 370. Patient will be discharged home today in stable condition. Discharge diagnoses: 1. Abdominal pain secondary to acute pancreatitis and underlying alcoholic liver cirrhosis with worsening ascites. 2. History of alcoholic liver disease with portal hypertension and previous episodes of acute GI bleed with acute blood loss anemia resulting in multiple hospitalizations for GI bleeding from esophageal varices status post banding. 3. Chronic pancytopenia secondary to chronic EtOH related bone marrow damage and portal hypertension causing splenic sequestration. 4. Alcohol intoxication. 5. Spinal stenosis with peripheral neuropathy. 6. Tobacco use and dependence. 7. Hypothyroidism. 8. Recurrent depression. 9. Peripheral neuropathy secondary to alcoholism and spinal stenosis. 10. Gastroesophageal reflux disease 11. Diarrhea. Discharge plan: Home Impression and plan of care have been directed as dictated by the signing physician. Giovana Kathleen nurse practitioner acting as scribe for signing physician. Patient Condition at Discharge: Good Plan - Discharge Summary Discharge Rx Participant: Yes New Discharge Prescriptions: New Furosemide [Lasix] 40 mg PO BID@0900,1600 #60 tab Hydrocortisone Pr Cream [Proctosol-Hc 2.5%] 1 applic RECTAL BID #30 applic traMADol HCL [Ultram] 50 mg PO Q6HR PRN 3 Days #12 tab PRN Reason: Pain Continue Levothyroxine Sodium [Synthroid] 25 mcg PO DAILY Pantoprazole Sodium [Protonix] 20 mg PO BID Rifaximin [Xifaxan] 550 mg PO BID Sucralfate [Carafate] 1 gm PO ACHS Magnesium Oxide [Mag-Ox] 200 mg PO TID tab Thiamine [Vitamin B-1] 100 mg PO BID-W/MEALS tab Vitamin B Complex 1 cap PO DAILY Multivitamins, Thera [Multivitamin (formulary)] 1 tab PO DAILY Lipase/Protease/Amylase [Zenpep Dr 5,000 Unit Capsule] 5,000 unit PO AC-TID Lactulose [Constulose] 20 gm PO QID Metoprolol Tartrate [Lopressor] 25 mg PO BID Discontinued Furosemide [Lasix] 20 mg PO BID Spironolactone [Aldactone] 25 mg PO BID Discharge Medication List Levothyroxine Sodium [Synthroid] 25 mcg PO DAILY 05/07/16 [History] Pantoprazole Sodium [Protonix] 20 mg PO BID 01/02/17 [History] Rifaximin [Xifaxan] 550 mg PO BID 08/02/18 [History] Sucralfate [Carafate] 1 gm PO ACHS 09/22/18 [History] Magnesium Oxide [Mag-Ox] 200 mg PO TID tab 09/24/18 [Rx] Thiamine [Vitamin B-1] 100 mg PO BID-W/MEALS tab 09/24/18 [Rx] Lipase/Protease/Amylase [Zenpep Dr 5,000 Unit Capsule] 5,000 unit PO AC-TID 10/18/18 [History] Multivitamins, Thera [Multivitamin (formulary)] 1 tab PO DAILY 10/18/18 [History] Vitamin B Complex 1 cap PO DAILY 10/18/18 [History] Lactulose [Constulose] 20 gm PO QID 03/11/19 [History] Metoprolol Tartrate [Lopressor] 25 mg PO BID 03/11/19 [History] Furosemide [Lasix] 40 mg PO BID@0900,1600 #60 tab 04/04/19 [Rx] Hydrocortisone Pr Cream [Proctosol-Hc 2.5%] 1 applic RECTAL BID #30 applic 04/04/19 [Rx] traMADol HCL [Ultram] 50 mg PO Q6HR PRN 3 Days #12 tab 04/04/19 [Rx] Follow up Appointment(s)/Referral(s): Macy Leiva MD [STAFF PHYSICIAN] - 2 Weeks Pablo Linn MD [Primary Care Provider] - 04/11/19 1:30 pm Discharge Disposition: HOME SELF-CARE
[2019-04-04] MEDS: SODIUM CHLORIDE 0.9% 1,000 ML IV SCH (10:25)
[2019-04-04 11:59] VITALS: RESP 18
[2019-04-04 13:01] LABS: Glucose,Whole Blood 138 mg/dL (75-99)
--- NOTE | 2019-04-04 15:04 | US ---
Therapeutic paracentesis. DATE OF EXAM: 04/04/2019 CLINICAL HISTORY: Ascites The procedure was discussed with the patient. The risks, complications, benefits, and alternatives we re discussed and any questions were answered. Informed consent was obtained. The patient was placed s upine on the ultrasound table and prepped and draped in the usual sterile fashion. The patient receiv ed preprocedural and procedural IV platelets due to low platelet count. All elements of maximal barrier technique were utilized. Under ultrasound guidance, access into the right lower quadrant was obtained, via the paracentesis catheter system and direct ultrasound guidanc e. Approximately 4.8 liters of straw-colored fluid was removed. The patient was stable throughout the pr ocedure and remained stable upon discharge from Department of Radiology. IMPRESSION: Successful therapeutic paracentesis under ultrasound guidance.
[2019-04-04 15:15] VITALS: BP 124/77; PULSE 90; TEMP 98.6
[2019-04-04] MEDS ORDERED: POTASSIUM CHLORIDE ER 20 MEQ TAB.ER PO STA (15:34)
--- NOTE | 2019-04-04 15:51 | PN ---
PROGRESS NOTE DATE OF DICTATION: 04/04/2019 HISTORY OF PRESENT ILLNESS: Patient is a 43-year-old male with alcoholic liver disease and severe ascites and portal hypertension, admitted to the hospital with altered mental status and ascites. He underwent large-volume paracentesis this afternoon and according to the patient, 6 L of fluid was removed. The fluid results are still pending. The patient is feeling much better. He wants to go home. He denies any symptoms. Remains on diuretics. PHYSICAL EXAMINATION: Appears comfortable. No apparent distress. VITAL SIGNS: Stable. Blood pressure is 128/82, pulse rate 101, temperature 98.7. HEENT examination unremarkable. Conjunctivae pink. Sclerae anicteric. Oral cavity no lesions. NECK: No JVD or lymph node enlargement. CHEST: Clear to auscultation. HEART: Regular rate and rhythm. ABDOMEN: Soft. There was fluid noted in the abdomen, but significantly improved. EXTREMITIES: No pedal edema. NEUROLOGIC: Alert and oriented x3. No focal deficits. LABS: Done today WBC 6.7, hemoglobin 11.1, platelets 42,000. PT/INR not available. BUN is 9 and creatinine 0.8. IMPRESSION: 1. Tense ascites, status post large-volume paracentesis and 6 L of fluid removed. The patient on Lasix 40 mg twice daily and Aldactone 100 mg twice daily as well as low- salt diet. Patient doing much better. 2. Alcoholic liver disease with gradual decompensation. 3. History of alcohol abuse. 4. Hepatic encephalopathy, improved. RECOMMENDATIONS: 1. Continue with Lasix 40 b.i.d. and Aldactone 100 mg twice daily. 2. Low-salt diet. 3. Continue with lactulose 30 mL 3 times daily and titrate so that he has 3-4 soft bowel movements daily. 4. Abstinence from alcohol. 5. Follow up in office in 2 weeks. 6. Thank you for this consultation. MMODL / IJN: [id number] /
== END 2019-04-04 16:15 | disposition home or self-care (01) | DRG 432 ==
LOC: EC 00:56 → 5NMEDONC 06:01 → 4SSUR 14:22
PROVIDERS: ADMIT Internal Medicine Geriatric Medicine; ATTEND Internal Medicine Geriatric Medicine
PROC: 0W9G3ZZ Drainage of Peritoneal Cavity, Percutaneous Approach (ICD-10-PCS; principal; 2019-04-04)
PROC: 30233R1 Transfusion of Nonautologous Platelets into Peripheral Vein, Percutaneous Approach (ICD-10-PCS; 2019-04-04)
DX: K70.31 Alcoholic cirrhosis of liver with ascites (principal); K85.90 Acute pancreatitis without necrosis or infection, unspecified; K76.6 Portal hypertension; D61.818 Other pancytopenia; F33.9 Major depressive disorder, recurrent, unspecified; D68.9 Coagulation defect, unspecified; I85.10 Secondary esophageal varices without bleeding; K86.1 Other chronic pancreatitis; K72.90 Hepatic failure, unspecified without coma; G62.1 Alcoholic polyneuropathy; K70.11 Alcoholic hepatitis with ascites; I10 Essential (primary) hypertension; G89.29 Other chronic pain; K21.9 Gastro-esophageal reflux disease without esophagitis; F17.210 Nicotine dependence, cigarettes, uncomplicated; F10.220 Alcohol dependence with intoxication, uncomplicated; M48.00 Spinal stenosis, site unspecified; E03.9 Hypothyroidism, unspecified; R19.7 Diarrhea, unspecified; R16.1 Splenomegaly, not elsewhere classified; R94.4 Abnormal results of kidney function studies; Y90.6 Blood alcohol level of 120-199 mg/100 ml; Z87.19 Personal history of other diseases of the digestive system; Z87.81 Personal history of (healed) traumatic fracture; Z90.49 Acquired absence of other specified parts of digestive tract; Z98.890 Other specified postprocedural states; Z96.60 Presence of unspecified orthopedic joint implant; Z81.1 Family history of alcohol abuse and dependence; Z79.890 Hormone replacement therapy; Z79.899 Other long term (current) drug therapy; Z87.09 Personal history of other diseases of the respiratory system
CPT/HCPCS: 36415; 49083; 76705; 80053; 80320; 81001; 82140; 82150; 83630; 83690; 85025; 85027; 85610; 85730; 86850; 86900; 86901; 87045; 87046; 87328; 87329; 96361; 96374; 96375; 96376; 99285

== ENCOUNTER 2019-04-20 07:27 | Inpatient (IN) | payer MEDICARE ==
[2019-04-20] MEDS ORDERED: HYDROmorphone 1 MG/ML 1 ML SYRINGE IVP STA (07:47)
--- NOTE | 2019-04-20 07:50 | ED ---
General Adult HPI - General Chief complaint: Abdominal Pain Stated complaint: post procedure abd distention Time Seen by Provider: 04/20/19 07:36 Source: patient, RN notes reviewed, old records reviewed Mode of arrival: ambulatory Limitations: no limitations - History of Present Illness Initial comments: 43 -year-old male presented for evaluation of abdominal pain and abdominal distention. He has history of liver cirrhosis and previous history of alcohol abuse. He has recurrent abdominal ascites and had paracentesis approximately 2 weeks ago. He reports increased abdominal distention over that 2 week period. He was seen by his watch leader yesterday who did recommend that the patient presented to the emergency department for paracentesis and symptom control. He states he's had normal urination and normal bowel movements. No vomiting he's had some nausea. No fever or chills. No dyspnea. - Related Data Home Medications Medication Instructions Recorded Confirmed Levothyroxine Sodium [Synthroid] 25 mcg PO DAILY 05/07/16 03/30/19 Pantoprazole Sodium [Protonix] 20 mg PO BID 01/02/17 03/30/19 Rifaximin [Xifaxan] 550 mg PO BID 08/02/18 03/30/19 Sucralfate [Carafate] 1 gm PO ACHS 09/22/18 03/30/19 Lipase/Protease/Amylase [Zenpep Dr 5,000 unit PO AC-TID 10/18/18 03/30/19 5,000 Unit Capsule] Multivitamins, Thera [Multivitamin 1 tab PO DAILY 10/18/18 03/30/19 (formulary)] Vitamin B Complex 1 cap PO DAILY 10/18/18 03/30/19 Lactulose [Constulose] 20 gm PO QID 03/11/19 03/30/19 Metoprolol Tartrate [Lopressor] 25 mg PO BID 03/11/19 03/30/19 Previous Rx's Medication Instructions Recorded Magnesium Oxide [Mag-Ox] 200 mg PO TID tab 09/24/18 Thiamine [Vitamin B-1] 100 mg PO BID-W/MEALS tab 09/24/18 Furosemide [Lasix] 40 mg PO BID@0900,1600 #60 tab 04/04/19 Hydrocortisone Pr Cream 1 applic RECTAL BID #30 applic 04/04/19 [Proctosol-Hc 2.5%] traMADol HCL [Ultram] 50 mg PO Q6HR PRN 3 Days #12 tab 04/04/19 Allergies Allergy/AdvReac Type Severity Reaction Status Date / Time No Known Allergies Allergy Verified 04/20/19 07:35 Review of Systems ROS Statement: Those systems with pertinent positive or pertinent negative responses have been documented in the HPI. ROS Other: All systems not noted in ROS Statement are negative. Past Medical History Past Medical History: GERD/Reflux, GI Bleed, Hypertension, Liver Disease, Thyroid Disorder Additional Past Medical History / Comment(s): Liver cirrhosis, portal htn, ETOH abuse, esophageal varicies, upper GI bleed, chronic thrombocytopenia, coagulopathy, pancytopenia, ascities, spinal stenosis: back/leg and feet pain, DDD, chronic back pain, neuropathy bilateral legs/feet, falls, bronchitis, past L rib fractures after fall off ladder,03-05-17 fall w/ head injury. 2010 Guillian Hunter, chronic pancreatitis History of Any Multi-Drug Resistant Organisms: None Reported Past Surgical History: Appendectomy, Joint Replacement Additional Past Surgical History / Comment(s): EGDs paracentesis, back injections, R thumb reattachment, circumcism. Past Anesthesia/Blood Transfusion Reactions: No Reported Reaction Additional Past Anesthesia/Blood Transfusion Reaction / Comment(s): Pt has received blood without reaction. Past Psychological History: Depression Smoking Status: Current some day smoker Past Alcohol Use History: None Reported Past Drug Use History: None Reported - Past Family History Father Family Medical History: Unable to Obtain Additional Family Medical History / Comment(s): Pt does not know his father's medical hx. Mother Family Medical History: No Reported History Additional Family Medical History / Comment(s): Mother is healthy. Brother(s) Additional Family Medical History / Comment(s): Patient has 3 brothers and one suffers from alcohol abuse. 2 brothers have no major medical problems. Patient does not have any sisters. Patient is one daughter 12 years old with no major medical problems. General Exam Limitations: no limitations General appearance: alert, in no apparent distress Head exam: Present: atraumatic, normocephalic Eye exam: Present: normal appearance, PERRL ENT exam: Present: normal exam Neck exam: Present: normal inspection. Absent: tenderness Respiratory exam: Present: normal lung sounds bilaterally. Absent: respiratory distress, wheezes Cardiovascular Exam: Present: regular rate, normal rhythm GI/Abdominal exam: Present: soft, distended, tenderness. Absent: guarding, rebound, rigid Extremities exam: Present: normal inspection, normal capillary refill. Absent: pedal edema Neurological exam: Present: alert, oriented X3, CN II-XII intact. Absent: motor sensory deficit Psychiatric exam: Present: normal affect, normal mood Skin exam: Present: warm, dry, intact, pallor Course Vital Signs 04/20/19 07:31 Temperature 98.4 F Pulse Rate 107 H Respiratory 18 Rate Blood Pressure 117/68 O2 Sat by Pulse 100 Oximetry Medical Decision Making - Medical Decision Making 43-year-old male presenting for evaluation of abdominal pain, distention. Patient has stable vital signs, significant abdominal distention. He is afebrile. He he recently had paracentesis approximately 2 weeks ago. Laboratory studies performed, normal white blood cell count, stable hemoglobin, from cytopenia with a platelets of 58. He will be admitted with both GI and interventional radiology on consult. Case discussed with the admitting physician Dr. Mchugh - Lab Data Result diagrams: 04/20/19 07:52 04/20/19 07:52 Lab Results 04/20/19 04/20/19 04/20/19 Range/Units 07:52 07:52 07:52 WBC 5.4 (3.8-10.6) k/uL RBC 3.77 L (4.30-5.90) m/uL Hgb 11.6 L (13.0-17.5) gm/dL Hct 35.2 L (39.0-53.0) % MCV 93.4 (80.0-100.0) fL MCH 30.7 (25.0-35.0) pg MCHC 32.8 (31.0-37.0) g/dL RDW 15.7 H (11.5-15.5) % Plt Count 58 L (150-450) k/uL Neutrophils % 78 % Lymphocytes % 11 % Monocytes % 7 % Eosinophils % 3 % Basophils % 1 % Neutrophils # 4.2 (1.3-7.7) k/uL Lymphocytes # 0.6 L (1.0-4.8) k/uL Monocytes # 0.4 (0-1.0) k/uL Eosinophils # 0.1 (0-0.7) k/uL Basophils # 0.0 (0-0.2) k/uL PT 14.3 H (9.0-12.0) sec INR 1.4 H (<1.2) APTT 24.3 (22.0-30.0) sec Sodium 137 (137-145) mmol/L Potassium 3.3 L (3.5-5.1) mmol/L Chloride 101 (98-107) mmol/L Carbon Dioxide 24 (22-30) mmol/L Anion Gap 12 mmol/L BUN 17 (9-20) mg/dL Creatinine 1.16 (0.66-1.25) mg/dL Est GFR (CKD-EPI)AfAm 89 (>60 ml/min/1.73 sqM) Est GFR (CKD-EPI)NonAf 77 (>60 ml/min/1.73 sqM) Glucose 197 H (74-99) mg/dL Calcium 8.0 L (8.4-10.2) mg/dL Total Bilirubin 3.4 H (0.2-1.3) mg/dL AST 37 (17-59) U/L ALT 14 (4-49) U/L Alkaline Phosphatase 76 (38-126) U/L Total Protein 6.8 (6.3-8.2) g/dL Albumin 3.1 L (3.5-5.0) g/dL Lipase 224 (23-300) U/L Disposition Clinical Impression: Thrombocytopenia, Anemia, Abdominal pain, Ascites, Alcoholic cirrhosis of liver Disposition[facility] Condition: Stable Is patient prescribed a controlled substance at d/c from ED?: No Referrals: Pablo Linn MD [Primary Care Provider] - 1-2 days Decision to Admit Reason: Admit from EC Decision Date: 04/20/19 Decision Time: 08:54
[2019-04-20 08:17] LABS: Basophils % (A) 1 %; Eosinophils # (A) 0.1 k/uL (0-0.7); Eosinophils % (A) 3 %; HCT 35.2 % (39.0-53.0); HGB 11.6 gm/dL (13.0-17.5); Lymphocytes # (A) 0.6 k/uL (1.0-4.8); Lymphocytes % (A) 11 %; MCH 30.7 pg (25.0-35.0); MCHC 32.8 g/dL (31.0-37.0); MCV 93.4 fL (80.0-100.0); Mean Platelet Volume 8.7; Monocytes # (A) 0.4 k/uL (0-1.0); Monocytes % (A) 7 %; Neutrophils # (A) 4.2 k/uL (1.3-7.7); Neutrophils % (A) 78 %; RBC 3.77 m/uL (4.30-5.90); RDW 15.7 % (11.5-15.5); WBC 5.4 k/uL (3.8-10.6)
[2019-04-20 08:19] LABS: Platelet Count 58 k/uL (150-450)
[2019-04-20 08:23] LABS: Albumin 3.1 g/dL (3.5-5.0); Potassium 3.3 mmol/L (3.5-5.1); Total Bilirubin 3.4 mg/dL (0.2-1.3); Total Protein 6.8 g/dL (6.3-8.2)
[2019-04-20 08:26] LABS: INR 1.4 (<1.2); Partial Thromboplastin Time 24.3 sec (22.0-30.0); Prothrombin Time 14.3 sec (9.0-12.0)
[2019-04-20] MEDS ORDERED: HYDROmorphone 0.5 MG/0.5 ML SYRINGE IVP PRN (08:49)
[2019-04-20] MEDS ORDERED: NALOXONE 0.4 MG/ML 1 ML VIAL IV PRN (08:49)
[2019-04-20] MEDS: HYDROmorphone 1 MG/ML 1 ML SYRINGE IVP PRN ×4 (11:35→22:00)
[2019-04-20] MEDS: SPIRONOLACTONE 25 MG TAB PO SCH ×2 (11:36→21:17)
[2019-04-20] MEDS: RIFAXIMIN 550 MG TABLET PO SCH ×2 (11:39→21:17)
[2019-04-20] MEDS ORDERED: POTASSIUM CHLORIDE ER 20 MEQ TAB.ER PO STA (12:57)
--- NOTE | 2019-04-20 12:58 | P.HPIM ---
History of Present Illness H&P Date: 04/20/19 This is a 43-year-old male patient of Dr. Sarmad Linn. He has history of alcohol liver cirrhosis with portal hypertension and previous GI bleeding, hypertension and gastritis, pancreatitis, spinal stenosis and peripheral neuropathy. Patient also has chronic back pain and was under the c are of Dr. Lagunas but violated pain contract and no longer seen by pain management. He is also known to Dr. Ghazal Leiva from previous EGDs in the past finding gastritis consistent with portal gastropathy but no gastric or esophageal varices or active bleeding. He has had multipe admissions for acute GI bleed in Jan 2016, Mar 2016 and Mar 2017. He had admission for right leg abscess requiring I&D in December 2017. He was most recently hospitalized in March for abdominal pain secondary to acute pancreatitis and worsening ascites. He underwent therapeutic paracentesis on April 04 with removal of 4.8 L of fluid. Patient did receive platelet transfusion at the time. Patient states that he was doing better at home but gradually fluid developed in his abdomen. He denies having any fever or chills, no nausea or vomiting. He denies any blood or black tarry stools. His weight has been stable taking in consideration for ascites. He states he has not been able to sleep due to increasing pain in the abdomen. He states he has been sober for 6 months the patient did have alcohol in his system on last admission in March. Review of Systems Constitutional: Reports fatigue, Reports poor appetite, Reports weakness, Denies chills, Denies fever Eyes: denies blurred vision, reports chronic pain Ears, nose, mouth and throat: Denies headache, Denies nasal congestion, Denies nasal discharge, Denies sore throat Cardiovascular: Denies chest pain, Denies decreased exercise tolerance, Denies dyspnea on exertion, Denies edema, Denies leg edema, Denies shortness of breath, Denies syncope Respiratory: Reports dyspnea, Denies cough, Denies cough with sputum, Denies excessive sputum, Denies hemoptysis, Denies home oxygen, Denies sleep apnea, Denies wheezing Gastrointestinal: Reports abdominal pain, Reports bloating, Reports loss of appetite, Reports nausea, denies vomiting Genitourinary: Denies dysuria, Denies urinary retention Musculoskeletal: Denies frequent falls, Denies gait dysfunction, Denies muscle weakness, Denies myalgias Integumentary: Denies pruritus, Denies rash, Denies wounds Neurological: Denies change in mentation, Denies change in speech, Denies gait dysfunction, Denies numbness, Denies seizures, Denies weakness Psychiatric: Denies anxiety, Denies depression Endocrine: Denies fatigue, Denies weight change Past Medical History Past Medical History: GERD/Reflux, GI Bleed, Hypertension, Liver Disease, Thyroid Disorder Additional Past Medical History / Comment(s): Liver cirrhosis, portal htn, ETOH abuse, esophageal varicies, upper GI bleed, chronic thrombocytopenia, coagulopathy, pancytopenia, ascities, spinal stenosis: back/leg and feet pain, DDD, chronic back pain, neuropathy bilateral legs/feet, falls, bronchitis, past L rib fractures after fall off ladder,03-05-17 fall w/ head injury. 2010 Gu[place], chronic pancreatitis History of Any Multi-Drug Resistant Organisms: None Reported Past Surgical History: Appendectomy, Joint Replacement Additional Past Surgical History / Comment(s): EGDs paracentesis, back injections, R thumb reattachment, circumcism. Past Anesthesia/Blood Transfusion Reactions: No Reported Reaction Additional Past Anesthesia/Blood Transfusion Reaction / Comment(s): Pt has received blood without reaction. Past Psychological History: Depression Smoking Status: Current some day smoker Past Alcohol Use History: None Reported Additional Past Alcohol Use History / Comment(s): Patient is a smoker of a pack per day for 27 years. Patient states he quit one month ago which would be 08/23/2017. He denies any marijuana or street drug use. He does have history of heavy alcohol use with drinking up to a pint per day for 7 years but he currently is only drinking an occasional beer. He is on disability. He is currently living with his mother. He does have a dog in the home exposure to his daughter's cat. He uses a cane for ambulation. Past Drug Use History: None Reported - Past Family History Father Family Medical History: Unable to Obtain Additional Family Medical History / Comment(s): Pt does not know his father's medical hx. Mother Family Medical History: No Reported History Additional Family Medical History / Comment(s): Mother is healthy. Brother(s) Additional Family Medical History / Comment(s): Patient has 3 brothers and one suffers from alcohol abuse. 2 brothers have no major medical problems. Patient does not have any sisters. Patient is one daughter 12 years old with no major medical problems. Medications and Allergies Home Medications Medication Instructions Recorded Confirmed Type Levothyroxine Sodium [Synthroid] 25 mcg PO DAILY 05/07/16 04/20/19 History Pantoprazole Sodium [Protonix] 20 mg PO BID 01/02/17 04/20/19 History Rifaximin [Xifaxan] 550 mg PO BID 08/02/18 04/20/19 History Sucralfate [Carafate] 1 gm PO ACHS 09/22/18 04/20/19 History Magnesium Oxide [Mag-Ox] 200 mg PO TID tab 09/24/18 04/20/19 Rx Thiamine [Vitamin B-1] 100 mg PO BID-W/MEALS tab 09/24/18 04/20/19 Rx Lipase/Protease/Amylase [Zenpep Dr 5,000 unit PO AC-TID 10/18/18 04/20/19 History 5,000 Unit Capsule] Multivitamins, Thera [Multivitamin 1 tab PO DAILY 10/18/18 04/20/19 History (formulary)] Vitamin B Complex 1 cap PO DAILY 10/18/18 04/20/19 History Lactulose [Constulose] 20 gm PO QID 03/11/19 04/20/19 History Metoprolol Tartrate [Lopressor] 25 mg PO BID 03/11/19 04/20/19 History Furosemide [Lasix] 40 mg PO BID@0900,1600 #60 tab 04/04/19 04/20/19 Rx Hydrocortisone Pr Cream 1 applic RECTAL BID #30 applic 04/04/19 04/20/19 Rx [Proctosol-Hc 2.5%] traMADol HCL [Ultram] 50 mg PO Q6HR PRN 3 Days #12 tab 04/04/19 04/20/19 Rx Spironolactone [Aldactone] 25 mg PO BID 04/20/19 04/20/19 History Allergies Allergy/AdvReac Type Severity Reaction Status Date / Time No Known Allergies Allergy Verified 04/20/19 07:35 Physical Exam Vitals: Vital Signs Temp Pulse Resp BP Pulse Ox 04/20/19 10:37 97.6 F 98 18 105/81 97 04/20/19 09:00 18 04/20/19 08:07 18 106/71 98 04/20/19 07:31 98.4 F 107 H 18 117/68 100 Intake and Output 04/19/19 04/20/19 04/20/19 22:59 06:59 14:59 Other: Weight 64.229 kg General appearance: average body habitus, cooperative, no distress, appears uncomfortable - EENT Eyes: EOMI, PERRLA, no photophobia, poor dentition, no ptosis, scleral icterus ENT: hearing grossly normal, normal oropharynx Ears: bilateral: normal - Neck Neck: lymphadenopathy Carotids: bilateral: upstroke normal - Respiratory Respiratory: bilateral: CTA, negative: diminished, dullness, rales, rhonchi, wheezing - Cardiovascular Rhythm: regular Heart sounds: normal: S1, S2 Abnormal Heart Sounds: no systolic murmur, no diastolic murmur, no rub, no click - Gastrointestinal General gastrointestinal: decreased bowel sounds, distended with significant abdominal ascites, soft, generalized tenderness Localized gastrointestinal: tender: diffuse, guarding: diffuse - Integumentary Integumentary: no cyanotic, jaundiced, no rash, no ulcer - Neurologic Neurologic: CNII-XII intact - Musculoskeletal Musculoskeletal: generalized weakness - Psychiatric Psychiatric: A&O x's 3, appropriate affect Results CBC & Chem 7: 04/20/19 07:52 04/20/19 07:52 Labs: Abnormal Lab Results - Last 24 Hours (Table) 04/20/19 04/20/19 04/20/19 Range/Units 07:52 07:52 07:52 RBC 3.77 L (4.30-5.90) m/uL Hgb 11.6 L (13.0-17.5) gm/dL Hct 35.2 L (39.0-53.0) % RDW 15.7 H (11.5-15.5) % Plt Count 58 L (150-450) k/uL Lymphocytes # 0.6 L (1.0-4.8) k/uL PT 14.3 H (9.0-12.0) sec INR 1.4 H (<1.2) Potassium 3.3 L (3.5-5.1) mmol/L Glucose 197 H (74-99) mg/dL Calcium 8.0 L (8.4-10.2) mg/dL Total Bilirubin 3.4 H (0.2-1.3) mg/dL Albumin 3.1 L (3.5-5.0) g/dL Thrombosis Risk Factor Assmnt - DVT/VTE Prophylaxis DVT/VTE Prophylaxis: Mechanical Prophylaxis ordered Assessment and Plan Plan: 1. Abdominal pain secondary to worsening ascites. Regular diet as tolerated, IV fluids, interventional radiology for paracentesis. Consult with GI appreciated. Continue lactulose 20 mg 4 times daily, Zenpep 3 times daily, Xifaxan 550 mg twice daily, Aldactone 25 mg twice daily, Lasix 40 mg twice d aily. 2. History of alcoholic liver disease with portal hypertension and previous episodes of acute GI bleed with acute blood loss anemia resulting in multiple hospitalizations for GI bleeding from esophageal varices status post banding. Continue Protonix 40 mg twice daily and Carafate. 3. Chronic pancytopenia secondary to chronic EtOH related bone marrow damage and portal hypertension causing splenic sequestration. Patient follows with hematology 4. Hypokalemia, status post replacement. 5. Spinal stenosis with peripheral neuropathy. 6. Tobacco use and dependence. Patient quit. 7. Hypothyroidism. Continue levothyroxine 25 g daily. 8. Recurrent depression. Patient was unable to tolerate Zoloft. 9. Peripheral neuropathy secondary to alcoholism and spinal stenosis. 10. Gastroesophageal reflux disease and GI prophylaxis. Continue Protonix and Carafate. 11. DVT prophylaxis. No heparin due to thrombocytopenia. SCDs and ANDREEA hose and early ambulation. Patient will be admitted to the hospital for a minimum of 2 night stay Discharge plan: Home Impression and plan of care have been directed as dictated by the signing physician. Giovana Kathleen nurse practitioner acting as scribe for signing physician.
[2019-04-20] MEDS: SUCRALFATE 1 GM TAB PO SCH ×3 (14:22→21:17)
[2019-04-20] MEDS: LACTULOSE 20 GM/30 ML CUP PO SCH ×3 (14:22→21:17)
[2019-04-20] MEDS: LIPASE 5,000/PROTEASE 17,000/AMYLASE 24,000 PO SCH ×2 (14:22→17:39)
[2019-04-20] MEDS: traMADol 50 MG TAB PO PRN (15:09)
[2019-04-20] MEDS: MAGNESIUM OXIDE 400 MG TAB PO SCH ×2 (15:16→21:17)
[2019-04-20] MEDS: FUROSEMIDE 40 MG TAB PO SCH (15:16)
[2019-04-20] MEDS: PANTOPRAZOLE 40 MG TABLET PO SCH (17:39)
[2019-04-20] MEDS: THIAMINE 100 MG TAB PO SCH (17:39)
--- NOTE | 2019-04-20 20:45 | CONS ---
CONSULTATION DATE OF DICTATION: 04/20/2019 REASON FOR CONSULTATION: Ascites. HISTORY OF PRESENT ILLNESS: The patient is a 43-year-old white male with history of alcoholic cirrhosis of the liver with portal hypertension and prior history of GI bleed. He was admitted to the hospital because of abdominal distention and ascites. He underwent large-volume paracentesis 2 weeks ago. He came to the emergency room because of progressive abdominal distention for the last 2-3 days' duration. Last paracentesis was on April 04, and approximately 4.8 liters were removed. Prior to that he had paracentesis in summer of last year. He has been taking diuretics with Aldactone 25 mg twice daily and Lasix 40 mg twice daily. He complains of abdominal pain. He reports no nausea, vomiting. No fever, chills, night sweats. PAST MEDICAL HISTORY: Significant for hypertension, hyperlipidemia, alcoholic cirrhosis of the liver, gastroesophageal reflux disease, history of heavy alcohol abuse in the past. Quit drinking 3 months ago. Recent EGD and colonoscopy in 2016 showed evidence of portal hypertensive gastropathy and gastritis. PAST SURGERY HISTORY: Appendectomy, back surgeries, right arm surgery, paracentesis. SOCIAL HISTORY: Chronic smoker. Quit drinking 4 months ago. FAMILY HISTORY: Father unable to obtain. Mother healthy. REVIEW OF SYSTEMS: CARDIOPULMONARY: No chest pain or shortness of breath. GENITOURINARY: No dysuria or hematuria. MUSCULOSKELETAL: Unremarkable. SKIN: Unremarkable. ENDOCRINE: Unremarkable. PSYCHIATRIC: Unremarkable. NEUROLOGY: Unremarkable. ENT/VISION: Unremarkable. CONSTITUTIONAL: No recent weight loss. No fever, chills, night sweats. PHYSICAL EXAMINATION: He appears comfortable. VITAL SIGNS: Vital signs are stable. Blood pressure 116/82, pulse rate 76, temperature 98.5. HEENT examination unremarkable. Conjunctivae pink. Sclerae anicteric. Oral cavity no lesions. NECK: No JVD or lymph node enlargement. CHEST: Clear to auscultation. HEART: Regular rate and rhythm. ABDOMEN: Distended. Tympanitic. There was free fluid noted. Mild diffuse tenderness. EXTREMITIES: No pedal edema. SKIN: No rashes. NEUROLOGIC: Alert and oriented x3. No focal deficits. LABS: WBC 5.4, hemoglobin 11.6, platelets are 58,000. INR is 1.4. AST and ALT are 37 and 14, respectively. T-bilirubin 3.4, and alkaline phosphatase is 76. IMPRESSION: 1. Alcoholic cirrhosis of the liver with portal hypertension with gradual decompensation. 2. History of alcohol abuse; quit drinking 3 months ago. 3. Ascites, status post large-volume paracentesis 2 weeks ago, and 4.8 L fluid removed. Presently on Lasix 40 mg twice daily and Aldactone 25 mg twice daily. 4. Thrombocytopenia and coagulopathy secondary to underlying liver disease. RECOMMENDATIONS: 1. Schedule patient for large-volume paracentesis tomorrow. 2. Low-salt diet. 3. Continue with Lasix 40 mg twice daily and increase the Aldactone to 100 mg twice daily. 4. Daily weights. 5. Continue oral lactulose and Xifaxan. 6. Labs in the morning. We will follow with you closely. Thank you for this consultation. MMODL / IJN: [id number] /
[2019-04-20] MEDS: HYDROCORTISONE 2.5% RECTAL CREAM 30 GM TUBE RECTAL SCH (21:17)
[2019-04-20] MEDS: METOPROLOL TARTRATE 25 MG TAB PO SCH (21:17)
[2019-04-21] MEDS: HYDROmorphone 1 MG/ML 1 ML SYRINGE IVP PRN ×5 (01:39→14:58)
[2019-04-21] MEDS: traMADol 50 MG TAB PO PRN (05:21)
[2019-04-21] MEDS ORDERED: LEVOTHYROXINE 25 MCG TAB PO SCH (06:30)
[2019-04-21] MEDS: FUROSEMIDE 40 MG TAB PO SCH (07:38)
[2019-04-21] MEDS: METOPROLOL TARTRATE 25 MG TAB PO SCH (07:38)
[2019-04-21] MEDS: SPIRONOLACTONE 25 MG TAB PO SCH (07:38)
[2019-04-21] MEDS: PANTOPRAZOLE 40 MG TABLET PO SCH (07:38)
[2019-04-21] MEDS: SUCRALFATE 1 GM TAB PO SCH ×2 (07:38→12:02)
[2019-04-21] MEDS: THIAMINE 100 MG TAB PO SCH (07:38)
[2019-04-21] MEDS: LIPASE 5,000/PROTEASE 17,000/AMYLASE 24,000 PO SCH ×2 (07:39→12:02)
[2019-04-21] MEDS: HYDROCORTISONE 2.5% RECTAL CREAM 30 GM TUBE RECTAL SCH (07:40)
[2019-04-21] MEDS: LACTULOSE 20 GM/30 ML CUP PO SCH ×2 (07:40→12:02)
[2019-04-21] MEDS: RIFAXIMIN 550 MG TABLET PO SCH (07:40)
[2019-04-21] MEDS: MAGNESIUM OXIDE 400 MG TAB PO SCH (07:54)
[2019-04-21] MEDS ORDERED: NON FORMULARY DRUG (Vitamin B Complex [Vitamin B Complex] 1 CAP) PO SCH (09:00)
[2019-04-21] MEDS ORDERED: MULTIVITAMINS, THERA 1 EACH TAB PO SCH (09:00)
[2019-04-21 09:48] LABS: INR 1.5 (<1.2); Prothrombin Time 15.2 sec (9.0-12.0)
[2019-04-21 09:50] LABS: ALT 12 U/L (4-49); AST 33 U/L (17-59); African American GFR (CKD) >90 (>60 ml/min/1.73 sqM); Albumin 2.5 g/dL (3.5-5.0); Alkaline Phosphatase 49 U/L (38-126); Anion Gap 6 mmol/L; Blood Urea Nitrogen 16 mg/dL (9-20); Calcium 7.8 mg/dL (8.4-10.2); Carbon Dioxide 28 mmol/L (22-30); Chloride 101 mmol/L (98-107); Glucose 166 mg/dL (74-99); Mean Platelet Volume 8.7; Non-African American GFR(CKD) 87 (>60 ml/min/1.73 sqM); Potassium 3.4 mmol/L (3.5-5.1); Sodium 135 mmol/L (137-145); Total Bilirubin 3.3 mg/dL (0.2-1.3); Total Protein 5.6 g/dL (6.3-8.2)
[2019-04-21 09:53] LABS: Platelet Count 46 k/uL (150-450)
[2019-04-21] MEDS ORDERED: POTASSIUM CHLORIDE ER 20 MEQ TAB.ER PO STA (11:06)
[2019-04-21 14:44] VITALS: RESP 18
[2019-04-21 14:58] VITALS: BP 104/70; PULSE 75; TEMP 97.8
--- NOTE | 2019-04-21 15:55 | US ---
EXAMINATION TYPE: US paracentesis abd w/image DATE OF EXAM: 04/21/2019 COMPARISON: NONE HISTORY: Ascites. PROCEDURE: Maximal barrier technique was utilized. The skin overlying a suitable pocket of fluid was localized with ultrasound and the overlying skin was prepped and draped. Ultrasound was utilized with sterile technique. Lidocaine was used for local anesthesia and a skin gia made with a scalpel. Catheter was advanced under direct ultrasound guidance into a suitable pocket of fluid and approximately 2.5 liter s of serous fluid were removed. Catheter was withdrawn and hemostasis achieved. There is no immedia te complication; the patient is discharged in stable condition. IMPRESSION: STATUS POST ULTRASOUND GUIDED PARACENTESIS FOR PALLIATION OF ASCITES. THIS PROCEDURE WA S PERFORMED BY THE UNDERSIGNED.
--- NOTE | 2019-04-21 15:58 | P.DS ---
Providers Date of admission: 04/20/19 08:50 Expected date of discharge: 04/21/19 Attending physician: Precious Mchugh Consults: 04/20/19 08:50 Consult Physician Routine Consulting Provider: Macy Leiva Consult Reason/Comments: Cirrhosis, ascites Do you want consulting provider notified?: Yes Primary care physician: [facility] Course: This is a 43-year-old male patient of Dr. Sarmad Linn. He has history of alcohol liver cirrhosis with portal hypertension and previous GI bleeding, hypertension and gastritis, pancreatitis, spinal stenosis and periphe ral neuropathy. Patient also has chronic back pain and was under the care of Dr. Lagunas but violated pain contract and no longer seen by pain management. He is also known to Dr. Ghazal Leiva from previous EGDs in the past finding gastritis consistent with portal gastropathy but no gastric or esophageal varices or active bleeding. He has had multipe admissions for acute GI bleed in Jan 2016, Mar 2016 and Mar 2017. He had admission for right leg abscess requiring I&D in December 2017. He was most recently hospitalized in March for abdominal pain secondary to acute pancreatitis and worsening ascites. He underwent therapeutic paracentesis on April 04 with removal of 4.8 L of fluid. Patient did receive platelet transfusion at the time. Patient states that he was doing better at home but gradually fluid developed in his abdomen. He denies having any fever or chills, no nausea or vomiting. He denies any blood or black tarry stools. His weight has been stable taking in consideration for ascites. He states he has not been able to sleep due to increasing pain in the abdomen. He states he has been sober for 6 months the patient did have alcohol in his system on last admission in March. 04/21: Patient has been afebrile, heart rate 75, blood pressure 104/70, pulse ox 100% on room air. Repeat lab work this morning reveals platelet count of 46, INR 1.5, blood sugar 166, total bilirubin 3.3, AST 33, ALT 12, alkaline phosphatase 49. Patient underwent therapeutic paracentesis with removal of 2.5 L of serous fluid. Patient will be discharged home today in stable condition. Patient is requesting tramadol prescription for 3 day course. Maps score of 330. Discharge diagnoses: 1. Abdominal pain secondary to worsening ascites. 2. History of alcoholic liver disease with portal hypertension and previous episodes of acute GI bleed with acute blood loss anemia resulting in multiple hospitalizations for GI bleeding from esophageal varices status post banding. 3. Chronic pancytopenia secondary to chronic EtOH related bone marrow damage and portal hypertension causing splenic sequestration. 4. Hypokalemia, status post replacement. 5. Spinal stenosis with peripheral neuropathy. 6. Tobacco use and dependence. Patient quit. 7. Hypothyroidism. 8. Recurrent depression. 9. Peripheral neuropathy secondary to alcoholism and spinal stenosis. 10. Gastroesophageal reflux disease Discharge plan: Home Impression and plan of care have been directed as dictated by the signing physician. Giovana Kathleen nurse practitioner acting as scribe for signing physician. Patient Condition at Discharge: Good Plan - Discharge Summary New Discharge Prescriptions: Continue Levothyroxine Sodium [Synthroid] 25 mcg PO DAILY Pantoprazole Sodium [Protonix] 20 mg PO BID Rifaximin [Xifaxan] 550 mg PO BID Sucralfate [Carafate] 1 gm PO ACHS Magnesium Oxide [Mag-Ox] 200 mg PO TID tab Thiamine [Vitamin B-1] 100 mg PO BID-W/MEALS tab Vitamin B Complex 1 cap PO DAILY Multivitamins, Thera [Multivitamin (formulary)] 1 tab PO DAILY Lipase/Protease/Amylase [Zenpep Dr 5,000 Unit Capsule] 5,000 unit PO AC-TID Lactulose [Constulose] 20 gm PO QID Metoprolol Tartrate [Lopressor] 25 mg PO BID Furosemide [Lasix] 40 mg PO BID@0900,1600 #60 tab Hydrocortisone Pr Cream [Proctosol-Hc 2.5%] 1 applic RECTAL BID #30 applic Spironolactone [Aldactone] 25 mg PO BID traMADol HCL [Ultram] 50 mg PO Q6HR PRN 3 Days #12 tab PRN Reason: Pain Discharge Medication List Levothyroxine Sodium [Synthroid] 25 mcg PO DAILY 05/07/16 [History] Pantoprazole Sodium [Protonix] 20 mg PO BID 01/02/17 [History] Rifaximin [Xifaxan] 550 mg PO BID 08/02/18 [History] Sucralfate [Carafate] 1 gm PO ACHS 09/22/18 [History] Magnesium Oxide [Mag-Ox] 200 mg PO TID tab 09/24/18 [Rx] Thiamine [Vitamin B-1] 100 mg PO BID-W/MEALS tab 09/24/18 [Rx] Lipase/Protease/Amylase [Zenpep Dr 5,000 Unit Capsule] 5,000 unit PO AC-TID 10/18/18 [History] Multivitamins, Thera [Multivitamin (formulary)] 1 tab PO DAILY 10/18/18 [History] Vitamin B Complex 1 cap PO DAILY 10/18/18 [History] Lactulose [Constulose] 20 gm PO QID 03/11/19 [History] Metoprolol Tartrate [Lopressor] 25 mg PO BID 03/11/19 [History] Furosemide [Lasix] 40 mg PO BID@0900,1600 #60 tab 04/04/19 [Rx] Hydrocortisone Pr Cream [Proctosol-Hc 2.5%] 1 applic RECTAL BID #30 applic 04/04/19 [Rx] Spironolactone [Aldactone] 25 mg PO BID 04/20/19 [History] traMADol HCL [Ultram] 50 mg PO Q6HR PRN 3 Days #12 tab 04/21/19 [Rx] Follow up Appointment(s)/Referral(s): Macy Leiva MD [STAFF PHYSICIAN] - 05/09/19 2:00 pm Pablo Linn MD [Primary Care Provider] - 04/28/19 1:00 pm Patient Instructions/Handouts: Paracentesis (DC) Discharge Disposition: HOME SELF-CARE
--- NOTE | 2019-04-21 18:30 | PN ---
PROGRESS NOTE DATE OF DICTATION: 04/21/2019 Patient is a 43-year-old pleasant white male with a history of alcoholic cirrhosis of the liver, admitted to the hospital because of abdominal distention and abdominal pain. He is scheduled for a large-volume paracentesis today; in fact, he is going to have this done in the next hour. In the meantime, his diuretics have been changed to Lasix 40 mg twice daily and Aldactone 100 mg b.i.d. He denies any symptoms. PHYSICAL EXAMINATION: Appears comfortable. No apparent distress. VITAL SIGNS: Stable. Blood pressure is 104/70, pulse rate 75, temperature 97.8. HEENT examination unremarkable. Conjunctivae pink. Sclerae anicteric. Oral cavity no lesions. NECK: No JVD or lymph node enlargement. CHEST: Clear to auscultation. HEART: Regular rate and rhythm. ABDOMEN: Distended. There is mild diffuse tenderness noted. EXTREMITIES: No pedal edema. SKIN: No rashes. NEUROLOGIC: Alert and oriented x3. No focal deficits. LABS: Labs from today show INR is 1.5. AST and ALT are 33 and 12, respectively. T-bilirubin 3.3. IMPRESSION: 1. Alcoholic cirrhosis of the liver with portal hypertension with gradual decompensation. 2. Ascites. Scheduled for large-volume paracentesis today. 3. Mild coagulopathy and thrombocytopenia secondary to underlying liver disease. RECOMMENDATIONS: 1. Continue with Lasix 40 mg twice daily. 2. Continue with Aldactone 100 mg twice daily. 3. Low-salt diet. 4. After paracentesis, patient can be discharged home with outpatient followup in 2-3 weeks. Thank you for this consultation. MMODL / IJN: [id number] /
[2019-04-21] MEDS ORDERED: SPIRONOLACTONE 25 MG TAB PO SCH (21:00)
== END 2019-04-21 15:13 | disposition home or self-care (01) | DRG 433 ==
LOC: EC 07:27 → 5NMEDONC 08:50 → 6NMEDSUR 14:01
PROVIDERS: ADMIT Internal Medicine; ATTEND Internal Medicine
PROC: 0W9G3ZZ Drainage of Peritoneal Cavity, Percutaneous Approach (ICD-10-PCS; principal; 2019-04-21)
DX: K70.31 Alcoholic cirrhosis of liver with ascites (principal); K76.6 Portal hypertension; D61.818 Other pancytopenia; F33.9 Major depressive disorder, recurrent, unspecified; D68.9 Coagulation defect, unspecified; D69.59 Other secondary thrombocytopenia; E03.9 Hypothyroidism, unspecified; E78.5 Hyperlipidemia, unspecified; E87.6 Hypokalemia; F17.200 Nicotine dependence, unspecified, uncomplicated; G89.29 Other chronic pain; I10 Essential (primary) hypertension; K21.9 Gastro-esophageal reflux disease without esophagitis; M48.00 Spinal stenosis, site unspecified; G62.1 Alcoholic polyneuropathy; Z79.890 Hormone replacement therapy; Z79.899 Other long term (current) drug therapy; Z90.49 Acquired absence of other specified parts of digestive tract; Z98.890 Other specified postprocedural states
CPT/HCPCS: 36415; 49083; 80053; 83690; 85025; 85049; 85610; 85730; 88108; 88305; 96374; 99285

== ENCOUNTER 2019-05-11 | Inpatient (IN) | payer MEDICARE | END 2019-05-12 15:08 | disposition home or self-care (01) | DRG 433 | PROVIDERS: ADMIT Family Medicine | PROC: 0W9G3ZZ Drainage of Peritoneal Cavity, Percutaneous Approach (ICD-10-PCS; principal; 2019-05-11) | CPT/HCPCS: 36415; 49083; 80053; 83605; 83690; 84134; 85025; 85610; 85730; 96374; 96376; 99285 ==

== ENCOUNTER 2019-05-20 23:17 | Inpatient (IN) | payer MEDICARE ==
[2019-05-21] MEDS ORDERED: HYDROmorphone 1 MG/ML 1 ML SYRINGE IVP STA ×3 (00:03→04:42)
[2019-05-21] MEDS ORDERED: ONDANSETRON 4 MG/2 ML VIAL IVP STA (00:08)
[2019-05-21 00:43] LABS: Anisocytosis Moderate; Basophils % (A) 0 %; Eosinophils # (A) 0.1 k/uL (0-0.7); Eosinophils % (A) 2 %; HCT 33.6 % (39.0-53.0); HGB 11.3 gm/dL (13.0-17.5); Lymphocytes # (A) 0.5 k/uL (1.0-4.8); Lymphocytes % (A) 17 %; MCH 32.2 pg (25.0-35.0); MCHC 33.7 g/dL (31.0-37.0); MCV 95.6 fL (80.0-100.0); Macrocytosis Slight; Mean Platelet Volume 9.5; Monocytes # (A) 0.3 k/uL (0-1.0); Monocytes % (A) 10 %; Neutrophils # (A) 1.8 k/uL (1.3-7.7); Neutrophils % (A) 68 %; RBC 3.52 m/uL (4.30-5.90); WBC 2.7 k/uL (3.8-10.6)
[2019-05-21 00:57] LABS: INR 1.4 (<1.2); Partial Thromboplastin Time 24.7 sec (22.0-30.0); Prothrombin Time 13.9 sec (9.0-12.0)
[2019-05-21 01:00] LABS: ALT 12 U/L (4-49); AST 28 U/L (17-59); African American GFR (CKD) >90 (>60 ml/min/1.73 sqM); Albumin 3.3 g/dL (3.5-5.0); Alkaline Phosphatase 51 U/L (38-126); Amylase 58 U/L (30-110); Anion Gap 8 mmol/L; Blood Urea Nitrogen 18 mg/dL (9-20); Calcium 8.4 mg/dL (8.4-10.2); Carbon Dioxide 22 mmol/L (22-30); Chloride 107 mmol/L (98-107); Glucose 140 mg/dL (74-99); Non-African American GFR(CKD) >90 (>60 ml/min/1.73 sqM); Potassium 3.9 mmol/L (3.5-5.1); Sodium 137 mmol/L (137-145); Total Bilirubin 2.8 mg/dL (0.2-1.3); Total Protein 6.7 g/dL (6.3-8.2)
[2019-05-21 01:34] LABS: Platelet Count 58 k/uL (150-450)
--- NOTE | 2019-05-21 02:01 | ED ---
Abdominal Pain HPI - General Source: patient Mode of arrival: ambulatory Limitations: no limitations <Lucila Castro - Last Filed: 05/21/19 02:45> <Anita Farris - Last Filed: 05/21/19 06:47> - General Chief Complaint: Abdominal Pain Stated Complaint: Abdominal pain, fluid buildup Time Seen by Provider: 05/20/19 23:25 - History of Present Illness Initial Comments: 43-year-old male patient with past medical history significant for alcoholic liver failure presents to the emergency department today for evaluation of abdominal distention and pain. Patient has history of ascites and states that he feels like his abdomen is full again. His last paracentesis was 2 weeks ago. Patient states that his abdomen itself full is making it difficult to breathe. Denies any cough, congestion, or fever. Denies any difficulty with urination. States he does have diarrhea but this is common for him. Patient states he feels like he needs a paracentesis. Patient denies any recent rash, chest pain, nausea, vomiting, back pain, numbness, tingling, dizziness, weakness, hematuria, dysuria, urinary urgency, urinary frequency, headache, visual changes, or any other complaints. (Lucila Castro) - Related Data Home Medications Medication Instructions Recorded Confirmed Levothyroxine Sodium [Synthroid] 25 mcg PO DAILY 05/07/16 05/21/19 Pantoprazole Sodium [Protonix] 20 mg PO BID 01/02/17 05/21/19 Rifaximin [Xifaxan] 550 mg PO BID 08/02/18 05/21/19 Sucralfate [Carafate] 1 gm PO ACHS 09/22/18 05/21/19 Lipase/Protease/Amylase [Zenpep Dr 5,000 unit PO AC-TID 10/18/18 05/21/19 5,000 Unit Capsule] Multivitamins, Thera [Multivitamin 1 tab PO DAILY 10/18/18 05/21/19 (formulary)] Vitamin B Complex 1 cap PO DAILY 10/18/18 05/21/19 Lactulose [Constulose] 20 gm PO QID 03/11/19 05/21/19 Metoprolol Tartrate [Lopressor] 25 mg PO BID 03/11/19 05/21/19 Spironolactone [Aldactone] 25 mg PO BID 04/20/19 05/21/19 Previous Rx's Medication Instructions Recorded Magnesium Oxide [Mag-Ox] 200 mg PO TID tab 09/24/18 Thiamine [Vitamin B-1] 100 mg PO BID-W/MEALS tab 09/24/18 Furosemide [Lasix] 40 mg PO BID@0900,1600 #60 tab 04/04/19 Hydrocortisone Pr Cream 1 applic RECTAL BID #30 applic 04/04/19 [Proctosol-Hc 2.5%] Allergies Allergy/AdvReac Type Severity Reaction Status Date / Time No Known Allergies Allergy Verified 05/11/19 07:27 Review of Systems ROS Other: All systems not noted in ROS Statement are negative. <Lucila Castro - Last Filed: 05/21/19 02:45> ROS Other: All systems not noted in ROS Statement are negative. <Anita Farris - Last Filed: 05/21/19 06:47> ROS Statement: Those systems with pertinent positive or pertinent negative responses have been documented in the HPI. Past Medical History Past Medical History: GERD/Reflux, GI Bleed, Hypertension, Liver Disease, Thyroid Disorder Additional Past Medical History / Comment(s): Liver cirrhosis, portal htn, ETOH abuse, esophageal varicies, upper GI bleed, chronic thrombocytopenia, co agulopathy, pancytopenia, ascities, spinal stenosis: back/leg and feet pain, DDD, chronic back pain, neuropathy bilateral legs/feet, falls, bronchitis, past L rib fractures after fall off ladder,1-18 fall w/ head injury. 2010 [facility] [place], chronic pancreatitis History of Any Multi-Drug Resistant Organisms: None Reported Past Surgical History: Appendectomy, Joint Replacement Additional Past Surgical History / Comment(s): EGDs paracentesis, back injections, R thumb reattachment, circumcism. Past Anesthesia/Blood Transfusion Reactions: No Reported Reaction Additional Past Anesthesia/Blood Transfusion Reaction / Comment(s): Pt has received blood without reaction. Past Psychological History: Depression Smoking Status: Current some day smoker Past Alcohol Use History: None Reported Past Drug Use History: None Reported - Past Family History Father Family Medical History: Unable to Obtain Additional Family Medical History / Comment(s): Pt does not know his father's medical hx. Mother Family Medical History: No Reported History Additional Family Medical History / Comment(s): Mother is healthy. Brother(s) Additional Family Medical History / Comment(s): Patient has 3 brothers and one suffers from alcohol abuse. 2 brothers have no major medical problems. Patient does not have any sisters. Patient is one daughter 12 years old with no major medical problems. <Lucila Castro - Last Filed: 05/21/19 02:45> General Exam Limitations: no limitations General appearance: alert, in no apparent distress, other (Physical well- developed, well-nourished adult male patient in mild distress related to pain. Vital signs upon presentation are temperature 97.8F, pulse 60, respirations 18, blood pressure 116/72, pulse ox 96% on room air.) Eye exam: Present: normal appearance, PERRL, EOMI. Absent: scleral icterus, conjunctival injection, periorbital swelling ENT exam: Present: normal exam, normal oropharynx, mucous membranes moist Respiratory exam: Present: normal lung sounds bilaterally. Absent: respiratory distress, wheezes, rales, rhonchi, stridor Cardiovascular Exam: Present: regular rate, normal rhythm, normal heart sounds. Absent: systolic murmur, diastolic murmur, rubs, gallop, clicks GI/Abdominal exam: Present: distended, normal bowel sounds, other (ascitic a bdomen). Absent: tenderness, guarding, rebound, rigid Neurological exam: Present: alert, oriented X3, CN II-XII intact Psychiatric exam: Present: normal affect, normal mood Skin exam: Present: warm, dry, intact, normal color. Absent: rash <Lucila Castro M - Last Filed: 05/21/19 02:45> Course Vital Signs 05/20/19 05/21/19 05/21/19 23:20 00:27 03:00 Temperature 97.8 F Pulse Rate 60 77 70 Respiratory 18 24 24 Rate Blood Pressure 116/72 104/76 113/93 O2 Sat by Pulse 96 98 98 Oximetry Medical Decision Making - Lab Data Result diagrams: 05/21/19 00:13 05/21/19 00:13 <Lucila Castro M - Last Filed: 05/21/19 02:45> - Lab Data Result diagrams: 05/21/19 00:13 05/21/19 00:13 <Anita Farris Last Filed: 05/21/19 06:47> - Medical Decision Making 43-year-old male patient with end-stage liver disease presents to the emergency department today for evaluation of ascites and abdominal pain. Patient is requiring paracentesis however labs including low platelet count and elevated INR make emergency department drainage unsafe. He will be admitted for further evaluation and possible IR drainage. (Lucila Castro) - Lab Data Lab Results 05/21/19 05/21/19 05/21/19 Range/Units 00:13 00:13 00:13 WBC 2.7 L (3.8-10.6) k/uL RBC 3.52 L (4.30-5.90) m/uL Hgb 11.3 L (13.0-17.5) gm/dL Hct 33.6 L (39.0-53.0) % MCV 95.6 (80.0-100.0) fL MCH 32.2 (25.0-35.0) pg MCHC 33.7 (31.0-37.0) g/dL RDW 20.0 H (11.5-15.5) % Plt Count 58 L D (150-450) k/uL Neutrophils % 68 % Lymphocytes % 17 % Monocytes % 10 % Eosinophils % 2 % Basophils % 0 % Neutrophils # 1.8 (1.3-7.7) k/uL Lymphocytes # 0.5 L (1.0-4.8) k/uL Monocytes # 0.3 (0-1.0) k/uL Eosinophils # 0.1 (0-0.7) k/uL Basophils # 0.0 (0-0.2) k/uL Anisocytosis Moderate Macrocytosis Slight PT 13.9 H (9.0-12.0) sec INR 1.4 H (<1.2) APTT 24.7 (22.0-30.0) sec Sodium 137 (137-145) mmol/L Potassium 3.9 (3.5-5.1) mmol/L Chloride 107 (98-107) mmol/L Carbon Dioxide 22 (22-30) mmol/L Anion Gap 8 mmol/L BUN 18 (9-20) mg/dL Creatinine 0.84 (0.66-1.25) mg/dL Est GFR (CKD-EPI)AfAm >90 (>60 ml/min/1.73 sqM) Est GFR (CKD-EPI)NonAf >90 (>60 ml/min/1.73 sqM) Glucose 140 H (74-99) mg/dL Calcium 8.4 (8.4-10.2) mg/dL Total Bilirubin 2.8 H (0.2-1.3) mg/dL AST 28 (17-59) U/L ALT 12 (4-49) U/L Alkaline Phosphatase 51 (38-126) U/L Total Protein 6.7 (6.3-8.2) g/dL Albumin 3.3 L (3.5-5.0) g/dL Amylase 58 (30-110) U/L Lipase 199 (23-300) U/L Disposition Decision to Admit Reason: Admit from EC Decision Date: 05/21/19 Decision Time: 02:46 <Lucila Castro M - Last Filed: 05/21/19 02:45> <Anita Farris P - Last Filed: 05/21/19 06:47> Clinical Impression: Ascites, Abdominal pain Disposition: ADMITTED IP TO THIS HOSP Condition: Serious
[2019-05-21] MEDS ORDERED: NALOXONE 0.4 MG/ML 1 ML VIAL IV PRN (02:37)
[2019-05-21] MEDS ORDERED: ONDANSETRON 4 MG/2 ML VIAL IVP PRN (02:37)
[2019-05-21] MEDS: HYDROmorphone 1 MG/ML 1 ML SYRINGE IVP PRN ×5 (09:01→22:12)
--- NOTE | 2019-05-21 10:36 | P.HPIM ---
History of Present Illness H&P Date: 05/21/19 Chief Complaint: Advance liver cirrhosis, severe ascites, GI bleed, thromboc ytopenia, coagul 43-year-old male one of Dr. Pablo Linn's patient was in the hospital 2 weeks ago for advanced liver disease and up having paracentesis and was seen by Dr. Bowie's office this week apparently was supposed to go for paracentesis as an outpatient by next week but developed to have worsening symptoms ended up coming to demurs department at [facility] where was seen and ev aluated and admitted to the hospital for the above problem. He is also known to Dr. Ghazal Leiva from previous EGDs in the past finding gastritis consistent with portal gastropathy but no gastric or esophageal varices or active bleeding. He has had multipe admissions for acute GI bleed in Jan 2016, Mar 2016 and Mar 2017. He had admission for right leg abscess requiring I&D in December 2017. He has been admitted March for abdominal pain secondary to acute pancreatitis and worsening ascites. He underwent therapeutic paracentesis on April 04 with removal of 4.8 L of fluid. He was admitted again April 20 for ascites and abdominal pain and underwent a therapeutic paracentesis with removal of 2.5 L of serous fluid. Patient was discharged home at that time in stable condition. Patient states he has had gradual increasing fluid developed in his abdomen. He denies having any fever or chills, no nausea or vomiting. He denies any blood or black tarry stools. Patient states the pain is all over including around to his back. He denies having any fever or chills. He denies any alcohol intake for long period of time. Review of Systems CONSTITUTIONAL: Well-developed no acute respiratory distress. EYES: No icterus sclerae, no conjunctivitis. EARS, NOSE, MOUTH, THROAT, and FACE: No sore throat, lymphadenopathy, carotid bruits or deformity. RESPIRATORY: No SOB cough or wheezes. CARDIOVASCULAR: No CP, Palpitation, PND, Orthopnea, or angina. GASTROINTESTINAL: Positive abdominal distention with nausea significant pain and discomfort with large ascites. GENITOURINARY: Negative for Hematuria or UTI, no kidney stones. INTEGUMENT/BREAST: Negative for any muscular injury with mild osteoarthritis.. HEMATOLOGIC/LYMPHATIC: Negative for bleed or purpura. MUSCULOSKELTAL: Negative for Myalgia or arthralgia. NEURLOGICAL: No LOC, Sz or syncope, blurred vision dizziness or abnormality.. BEHAVIORAL/PSYCH: Negative. ENDOCRINE: Negative. Past Medical History Past Medical History: GERD/Reflux, GI Bleed, Hypertension, Liver Disease, Thyroid Disorder Additional Past Medical History / Comment(s): Liver cirrhosis, portal htn, ETOH abuse, esophageal varicies, upper GI bleed, chronic thrombocytopenia, coagulopathy, pancytopenia, ascities, spinal stenosis: back/leg and feet pain, DDD, chronic back pain, neuropathy bilateral legs/feet, falls, bronchitis, past L rib fractures after fall off ladder,03-05-17 fall w/ head injury. 2010 [facility] [place], chronic pancreatitis History of Any Multi-Drug Resistant Organisms: None Reported Past Surgical History: Appendectomy, Joint Replacement Additional Past Surgical History / Comment(s): EGDs paracentesis, back injections, R thumb reattachment, circumcism. Past Anesthesia/Blood Transfusion Reactions: No Reported Reaction Additional Past Anesthesia/Blood Transfusion Reaction / Comment(s): Pt has received blood without reaction. Past Psychological History: Depression Additional Psychological History / Comment(s): Pt is on disability. He resides with his mother. He uses a cane to ambulate at times. He drives. Smoking Status: Current some day smoker Past Alcohol Use History: None Reported Additional Past Alcohol Use History / Comment(s): Patient is a smoker of a pack per day for 27 years currently down to a few puffs a day. He denies any marijuana or street drug use. He does have history of heavy alcohol use with drinking up to a pint per day for 7 years but he currently is only drinking an occasional beer. He is on disability. He is currently living with his mother. He does have a dog in the home exposure to his daughter's cat. He uses a cane for ambulation. Past Drug Use History: None Reported - Past Family History Father Family Medical History: Unable to Obtain Additional Family Medical History / Comment(s): Pt does not know his father's medical hx. Mother Family Medical History: No Reported History Additional Family Medical History / Comment(s): Mother is healthy. Brother(s) Additional Family Medical History / Comment(s): Patient has 3 brothers and one suffers from alcohol abuse. 2 brothers have no major medical problems. Patient does not have any sisters. Patient is one daughter 12 years old with no major medical problems. Medications and Allergies Home Medications Medication Instructions Recorded Confirmed Type Levothyroxine Sodium [Synthroid] 25 mcg PO DAILY 05/07/16 05/21/19 History Pantoprazole Sodium [Protonix] 20 mg PO BID 01/02/17 05/21/19 History Rifaximin [Xifaxan] 550 mg PO BID 08/02/18 05/21/19 History Sucralfate [Carafate] 1 gm PO ACHS 09/22/18 05/21/19 History Magnesium Oxide [Mag-Ox] 200 mg PO TID tab 09/24/18 05/21/19 Rx Thiamine [Vitamin B-1] 100 mg PO BID-W/MEALS tab 09/24/18 05/21/19 Rx Lipase/Protease/Amylase [Zenpep Dr 5,000 unit PO AC-TID 10/18/18 05/21/19 History 5,000 Unit Capsule] Multivitamins, Thera [Multivitamin 1 tab PO DAILY 10/18/18 05/21/19 History (formulary)] Vitamin B Complex 1 cap PO DAILY 10/18/18 05/21/19 History Lactulose [Constulose] 20 gm PO QID 03/11/19 05/21/19 History Metoprolol Tartrate [Lopressor] 25 mg PO BID 03/11/19 05/21/19 History Furosemide [Lasix] 40 mg PO BID@0900,1600 #60 tab 04/04/19 05/21/19 Rx Hydrocortisone Pr Cream 1 applic RECTAL BID #30 applic 04/04/19 05/21/19 Rx [Proctosol-Hc 2.5%] Spironolactone [Aldactone] 25 mg PO BID 04/20/19 05/21/19 History Allergies Allergy/AdvReac Type Severity Reaction Status Date / Time No Known Allergies Allergy Verified 05/11/19 07:27 Physical Exam Vitals: Vital Signs Temp Pulse Pulse Resp BP BP Pulse Ox 05/21/19 05:36 98.1 F 83 18 112/73 95 05/21/19 03:50 98.6 F 62 16 101/71 97 05/21/19 03:00 70 24 113/93 98 05/21/19 00:27 77 24 104/76 98 05/20/19 23:20 97.8 F 60 18 116/72 96 Intake and Output 05/20/19 05/21/19 05/21/19 22:59 06:59 14:59 Intake Total 0 Balance 0 Intake: Oral 0 Other: Voiding Method Toilet Urinal Weight 74.5 kg General Appearance: Alert, cooperative, no distress, appears stated age. Neck HEENT: Supple, no lymphadenopathy, no thyroid enlargement, no carotid bruits. Mild jaundice Lungs: Clear to auscultation without crackles or wheezes no rhonchi, no deformity. Chest Wall: Decrease expansion with deep inspiration no tenderness and no deformity was found on exam, no costochondral pain or discomfort. Slight decreased breath sound in the right side. Heart: Regular rate and rhythm, S1, S2 normal, no murmur, rub or gallop. Back: Symmetric, no curvature, ROM normal, no CVA tenderness. Abdomen: Significantly distended abdomen with very large ascites and slight tenderness in the right upper quadrant area Extremities: Extremities normal, atraumatic, no cyanosis or edema. Pulses: 2+ and symmetric. Skin: Skin color, texture, tugor normal, no rashes or lesions. Neurologic: Alert oriented x3 cranial nerves II through XII intact, no motor deficit, no abnormal balance or gait. Results CBC & Chem 7: 05/21/19 00:13 05/21/19 00:13 Labs: Abnormal Lab Results - Last 24 Hours (Table) 05/21/19 05/21/19 05/21/19 Range/Units 00:13 00:13 00:13 WBC 2.7 L (3.8-10.6) k/uL RBC 3.52 L (4.30-5.90) m/uL Hgb 11.3 L (13.0-17.5) gm/dL Hct 33.6 L (39.0-53.0) % RDW 20.0 H (11.5-15.5) % Plt Count 58 L D (150-450) k/uL Lymphocytes # 0.5 L (1.0-4.8) k/uL PT 13.9 H (9.0-12.0) sec INR 1.4 H (<1.2) Glucose 140 H (74-99) mg/dL Magnesium (1.6-2.3) mg/dL Total Bilirubin 2.8 H (0.2-1.3) mg/dL Albumin 3.3 L (3.5-5.0) g/dL 05/21/19 Range/Units 00:13 WBC (3.8-10.6) k/uL RBC (4.30-5.90) m/uL Hgb (13.0-17.5) gm/dL Hct (39.0-53.0) % RDW (11.5-15.5) % Plt Count (150-450) k/uL Lymphocytes # (1.0-4.8) k/uL PT (9.0-12.0) sec INR (<1.2) Glucose (74-99) mg/dL Magnesium 1.4 L (1.6-2.3) mg/dL Total Bilirubin (0.2-1.3) mg/dL Albumin (3.5-5.0) g/dL Thrombosis Risk Factor Assmnt - Choose All That Apply Each Factor Represents 1 point: Age 41-60 years, Obesity (BMI >25) Other Risk Factors: No Other congenital or acquired thrombophilia - If yes, enter type in comment: No Thrombosis Risk Factor Assessment Total Risk Factor Score: 2 Thrombosis Risk Factor Assessment Level: Low Risk Assessment and Plan Plan: 1 advanced cirrhosis of the liver: With increased ascites and worsening symptoms patient will require thoracentesis continue lactulose along with Xifaxan still on Aldactone and furosemide despite all the right medication patient still have worsening ascites require paracentesis almost every 2 weeks, GI will be consult at this point patient will require to have paracentesis and maybe should scheduled for paracentesis every 2 weeks regularly from here on. 2 large ascites with worsening abdominal pain: Continue with Dilaudid smaller dose for pain management ~paracentesis staking effect. 3 history of advanced alcoholic liver with portal hypertension has been seen in been managed by GI on regular basis. 4 GI bleed: With recurrent episode has been on proton ex and Carafate. 5 chronic pancytopenia: Secondary to cirrhosis and alcoholism no change continue to watch his CBC on daily basis. 6. Tobacco use and dependence. Patient quit. 7. Hypothyroidism. Continue levothyroxine 25 g daily. 8. Recurrent depression. Patient was unable to tolerate Zoloft. 9. Peripheral neuropathy secondary to alcoholism and spinal stenosis. 10. Gastroesophageal reflux disease and GI prophylaxis. Continue Protonix and Carafate. 11. DVT prophylaxis. No heparin due to thrombocytopenia. SCDs and ANDREEA hose and early ambulation. 12. Spinal stenosis with peripheral neuropathy. CODE STATUS: Full code. Admit patient to inpatient status for more than 2 night stay. Additional cc's: Dr. Pablo Linn.
[2019-05-21] MEDS: LIPASE 5,000/PROTEASE 17,000/AMYLASE 24,000 PO SCH ×2 (12:22→17:38)
[2019-05-21] MEDS: SUCRALFATE 1 GM TAB PO SCH ×3 (12:22→21:02)
[2019-05-21] MEDS: LACTULOSE 20 GM/30 ML CUP PO SCH ×3 (12:23→22:12)
[2019-05-21] MEDS: FUROSEMIDE 40 MG TAB PO SCH (17:37)
[2019-05-21] MEDS: THIAMINE 100 MG TAB PO SCH (17:37)
[2019-05-21] MEDS: MAGNESIUM OXIDE 400 MG TAB PO SCH ×2 (17:37→22:11)
[2019-05-21 19:11] LABS: Appearance,Urine Clear (Clear); Bilirubin,Urine 1+ (Negative); Blood,Urine Negative (Negative); Color,Urine Light Brown; Glucose,Urine (UA) Negative (Negative); Hyaline Casts,Urine 6 /lpf (0-2); Ketones,Urine Trace (Negative); Leukocyte Esterase,Urine Negative (Negative); Mucus,Urine Rare /hpf; Nitrite,Urine Negative (Negative); Protein,Urine 1+ (Negative); RBC,Urine <1 /hpf (0-5); Specific Gravity,Urine 1.036 (1.001-1.035); Squamous Epithelial Cell,Urine <1 /hpf (0-4); WBC,Urine 1 /hpf (0-5)
[2019-05-21] MEDS ORDERED: SPIRONOLACTONE 25 MG TAB PO SCH (21:00)
[2019-05-21] MEDS: HYDROCORTISONE 2.5% RECTAL CREAM 30 GM TUBE RECTAL SCH (21:03)
[2019-05-21] MEDS: METOPROLOL TARTRATE 25 MG TAB PO SCH (21:03)
[2019-05-21] MEDS: RIFAXIMIN 550 MG TABLET PO SCH (21:04)
[2019-05-21] MEDS: SPIRONOLACTONE 25 MG TAB PO SCH (22:11)
--- NOTE | 2019-05-21 22:46 | P.CONS ---
History of Present Illness - Reason for Consult Consult date: 05/21/19 Decompensated alcohol cirrhosis, ascites, abdominal pain Requesting physician: Wilton Bateman - Chief Complaint Abdominal pain and distention - History of Present Illness 43-year-old male with a known medical history of alcoholic liver disease, splenomegaly, alcoholic pancreatitis, chronic thrombocytopenia, previous esophageal varices, and portal hypertension who presented to the hospital for evaluation of abdominal pain and distention. The patient [facility] with similar complaints and underwent paracentesis on 04/04/2019 with 4.8 L of ascites removed. He followed up in the gastroenterology clinic and at that time plan was for repeat paracentesis. The patient has been on diuretic therapy in the outpatient setting as we'll is trying to adhere to low-sodium diet. He is also been seen for EGD in the past with last EGD and/2018 with findings of no varices noted and gastritis seen. He denies any fevers, chills but does report abdominal distention stated. He does report associated shortness of breath with abdominal distention. He denies any confusion or signs or symptoms of GI bleeding at this time. Review of Systems REVIEW OF SYSTEMS: CONSTITUTIONAL: Denies any fevers, chills, weight change or fatigue. CARDIOVASCULAR: Denies any chest pain, palpitations high or low blood pressures RESPIRATORY: Denies any hemoptysis or cough but does report some shortness of breath with abdominal distention. GENITOURINARY: No dysuria or hematuria. MUSCULOSKELETAL: No weakness reported. SKIN: Denies any new rashes or lesions, jaundice or pallor. PSYCHIATRIC: Denies any depression or anxiety. NEUROLOGY: Denies headache, denies any new focal deficits. EARS/NOSE/THROAT: No recent hearing change, congestion, nasal discharge or sore throat. EYES: No pain in eyes, discharge or change in vision. GASTROINTESTINAL: As per HPI. Past Medical History Past Medical History: GERD/Reflux, GI Bleed, Hypertension, Liver Disease, Thyroid Disorder Additional Past Medical History / Comment(s): Liver cirrhosis, portal htn, ETOH abuse, esophageal varicies, upper GI bleed, chronic thrombocytopenia, coagulopathy, pancytopenia, ascities, spinal stenosis: back/leg and feet pain, DDD, chronic back pain, neuropathy bilateral legs/feet, falls, bronchitis, past L rib fractures after fall off ladder,1-4-18 fall w/ head injury. 2010 Guillian Dorr, chronic pancreatitis History of Any Multi-Drug Resistant Organisms: None Reported Past Surgical History: Appendectomy, Joint Replacement Additional Past Surgical History / Comment(s): EGDs paracentesis, back injections, R thumb reattachment, circumcism. Past Anesthesia/Blood Transfusion Reactions: No Reported Reaction Additional Past Anesthesia/Blood Transfusion Reaction / Comm: Pt has received blood without reaction. Past Psychological History: Depression Additional Psychological History / Comment(s): Pt is on disability. He resides with his mother. He uses a cane to ambulate at times. He drives. Smoking Status: Current some day smoker Past Alcohol Use History: None Reported Additional Past Alcohol Use History / Comment(s): Patient is a smoker of a pack per day for 27 years currently down to a few puffs a day. He denies any marijuana or street drug use. He does have history of heavy alcohol use with drinking up to a pint per day for 7 years but he currently is only drinking an occasional beer. He is on disability. He is currently living with his mother. He does have a dog in the home exposure to his daughter's cat. He uses a cane for ambulation. Past Drug Use History: None Reported - Past Family History Father Family Medical History: Unable to Obtain Additional Family Medical History / Comment(s): Pt does not know his father's medical hx. Mother Family Medical History: No Reported History Additional Family Medical History / Comment(s): Mother is healthy. Brother(s) Additional Family Medical History / Comment(s): Patient has 3 brothers and one suffers from alcohol abuse. 2 brothers have no major medical problems. Patient does not have any sisters. Patient is one daughter 12 years old with no major medical problems. Medications and Allergies Home Medications Medication Instructions Recorded Confirmed Type Levothyroxine Sodium [Synthroid] 25 mcg PO DAILY 05/07/16 05/21/19 History Pantoprazole Sodium [Protonix] 20 mg PO BID 01/02/17 05/21/19 History Rifaximin [Xifaxan] 550 mg PO BID 08/02/18 05/21/19 History Sucralfate [Carafate] 1 gm PO ACHS 09/22/18 05/21/19 History Magnesium Oxide [Mag-Ox] 200 mg PO TID tab 09/24/18 05/21/19 Rx Thiamine [Vitamin B-1] 100 mg PO BID-W/MEALS tab 09/24/18 05/21/19 Rx Lipase/Protease/Amylase [Zenpep Dr 5,000 unit PO AC-TID 10/18/18 05/21/19 History 5,000 Unit Capsule] Multivitamins, Thera [Multivitamin 1 tab PO DAILY 10/18/18 05/21/19 History (formulary)] Vitamin B Complex 1 cap PO DAILY 10/18/18 05/21/19 History Lactulose [Constulose] 20 gm PO QID 03/11/19 05/21/19 History Metoprolol Tartrate [Lopressor] 25 mg PO BID 03/11/19 05/21/19 History Furosemide [Lasix] 40 mg PO BID@0900,1600 #60 tab 04/04/19 05/21/19 Rx Hydrocortisone Pr Cream 1 applic RECTAL BID #30 applic 04/04/19 05/21/19 Rx [Proctosol-Hc 2.5%] Spironolactone [Aldactone] 25 mg PO BID 04/20/19 05/21/19 History Allergies Allergy/AdvReac Type Severity Reaction Status Date / Time No Known Allergies Allergy Verified 05/21/19 11:42 Physical Exam Vitals: Vital Signs Temp Pulse Pulse Resp BP BP Pulse Ox 05/21/19 05:36 98.1 F 83 18 112/73 95 05/21/19 03:50 98.6 F 62 16 101/71 97 05/21/19 03:00 70 24 113/93 98 05/21/19 00:27 77 24 104/76 98 05/20/19 23:20 97.8 F 60 18 116/72 96 Intake and Output 05/20/19 05/21/19 05/21/19 22:59 06:59 14:59 Intake Total 0 Balance 0 Intake: Oral 0 Other: Voiding Method Toilet Toilet Urinal Urinal Weight 74.5 kg On physical examination, patient appears comfortable in no apparent distress. HEAD: Normocephalic, atraumatic. EYES: No scleral icterus. No conjunctival injection. MOUTH: No lesions, tongue midline. NECK: Trachea midline, no gross abnormalities. CHEST: Clear to auscultation with no wheezing or rhonchi appreciated. HEART: Regular rate and rhythm. ABDOMEN: Soft, moderately distended with positive fluid wave. Bowel sounds are p ositive. No organomegaly. No guarding or rigidity. EXTREMITIES: No pedal edema. SKIN: No rashes, no jaundice. NEUROLOGIC: Alert and oriented x3. No focal deficits. Results CBC & Chem 7: 05/21/19 00:13 05/21/19 00:13 Labs: Abnormal Lab Results - Last 24 Hours (Table) 05/21/19 05/21/19 05/21/19 Range/Units 00:13 00:13 00:13 WBC 2.7 L (3.8-10.6) k/uL RBC 3.52 L (4.30-5.90) m/uL Hgb 11.3 L (13.0-17.5) gm/dL Hct 33.6 L (39.0-53.0) % RDW 20.0 H (11.5-15.5) % Plt Count 58 L D (150-450) k/uL Lymphocytes # 0.5 L (1.0-4.8) k/uL PT 13.9 H (9.0-12.0) sec INR 1.4 H (<1.2) Glucose 140 H (74-99) mg/dL Magnesium (1.6-2.3) mg/dL Total Bilirubin 2.8 H (0.2-1.3) mg/dL Albumin 3.3 L (3.5-5.0) g/dL 05/21/19 Range/Units 00:13 WBC (3.8-10.6) k/uL RBC (4.30-5.90) m/uL Hgb (13.0-17.5) gm/dL Hct (39.0-53.0) % RDW (11.5-15.5) % Plt Count (150-450) k/uL Lymphocytes # (1.0-4.8) k/uL PT (9.0-12.0) sec INR (<1.2) Glucose (74-99) mg/dL Magnesium 1.4 L (1.6-2.3) mg/dL Total Bilirubin (0.2-1.3) mg/dL Albumin (3.5-5.0) g/dL Assessment and Plan (1) Alcoholic cirrhosis of liver Narrative/Plan: 43-year-old male with known history of decompensated alcoholic cirrhosis who presented to the hospital with abdominal distention and shortness of breath. Patient has required paracentesis in the past which have become more frequent recently. Last paracentesis in April and the patient reports abdominal distention and shortness of breath after this point. He has been seen in the outpatient setting of the gastroenterology service. Currently on diuretic therapy. He denies any fevers, chills, signs or symptoms of GI bleed. Current Visit: No Status: Acute Code(s): K70.30 - ALCOHOLIC CIRRHOSIS OF LIVER WITHOUT ASCITES SNOMED Code(s): 796977619 (2) Abdominal pain Current Visit: Yes Status: Acute Code(s): R10.9 - UNSPECIFIED ABDOMINAL PAIN SNOMED Code(s): 27717379 (3) Ascites Current Visit: Yes Status: Acute Code(s): R18.8 - OTHER ASCITES SNOMED Code(s): 530053164 Plan: Supportive care Okay for sodium restricted diet Continue Aldactone 50 mg twice a day Continue Lasix 40 mg twice a day Blood pressures have been marginal and Midodrine 3 times a day added at this time Can consider up titrating diuretic therapy based on blood pressure, creatinine and electrolytes moving forward IR consulted for paracentesis Lactulose and rifaximin therapy Thank you for allowing us to participate in the care of this patient we will continue to follow
[2019-05-22] MEDS: HYDROmorphone 1 MG/ML 1 ML SYRINGE IVP PRN ×7 (01:11→21:21)
[2019-05-22] MEDS: LEVOTHYROXINE 25 MCG TAB PO SCH (05:19)
[2019-05-22 06:11] LABS: ALT 10 U/L (4-49); AST 26 U/L (17-59); African American GFR (CKD) >90 (>60 ml/min/1.73 sqM); Albumin 2.8 g/dL (3.5-5.0); Alkaline Phosphatase 56 U/L (38-126); Anion Gap 6 mmol/L; Blood Urea Nitrogen 20 mg/dL (9-20); Calcium 8.3 mg/dL (8.4-10.2); Carbon Dioxide 20 mmol/L (22-30); Chloride 109 mmol/L (98-107); Glucose 104 mg/dL (74-99); Non-African American GFR(CKD) >90 (>60 ml/min/1.73 sqM); Potassium 4.5 mmol/L (3.5-5.1); Sodium 135 mmol/L (137-145); Total Bilirubin 2.3 mg/dL (0.2-1.3); Total Protein 5.9 g/dL (6.3-8.2)
[2019-05-22 06:16] LABS: Anisocytosis Slight; HCT 29.9 % (39.0-53.0); MCH 32.8 pg (25.0-35.0); MCHC 33.7 g/dL (31.0-37.0); MCV 97.6 fL (80.0-100.0); Macrocytosis Slight; Mean Platelet Volume 8.6; RBC 3.06 m/uL (4.30-5.90); RDW 19.6 % (11.5-15.5); WBC 1.7 k/uL (3.8-10.6)
[2019-05-22 06:22] LABS: Platelet Count 46 k/uL (150-450)
[2019-05-22 06:23] LABS: INR 1.4 (<1.2); Prothrombin Time 14.1 sec (9.0-12.0)
[2019-05-22 07:12] LABS: Band Neutrophils % 3 %; Basophils # (M) 0.02 k/uL (0-0.2); Eosinophils # (M) 0.03 k/uL (0-0.7); Lymphocytes # (M) 0.63 k/uL (1.0-4.8); Monocytes # (M) 0.03 k/uL (0-1.0); Neutrophils % (M) 55 %; Nucleated Red Blood Cells 0 /100 WBC (0-0); Total Cells Counted 100
[2019-05-22] MEDS: MAGNESIUM OXIDE 400 MG TAB PO SCH ×3 (08:50→21:22)
[2019-05-22] MEDS: THIAMINE 100 MG TAB PO SCH ×2 (08:50→18:07)
[2019-05-22] MEDS: PANTOPRAZOLE 40 MG TABLET PO SCH (08:51)
[2019-05-22] MEDS: LACTULOSE 20 GM/30 ML CUP PO SCH ×4 (08:51→21:18)
[2019-05-22] MEDS: SPIRONOLACTONE 25 MG TAB PO SCH ×2 (08:51→21:24)
[2019-05-22] MEDS: MIDODRINE 5 MG TAB PO SCH ×3 (08:51→17:56)
[2019-05-22] MEDS: SUCRALFATE 1 GM TAB PO SCH ×4 (08:51→21:22)
[2019-05-22] MEDS: FUROSEMIDE 40 MG TAB PO SCH ×2 (08:51→15:34)
[2019-05-22] MEDS: MULTIVITAMINS, THERA 1 EACH TAB PO SCH (08:51)
[2019-05-22] MEDS: METOPROLOL TARTRATE 25 MG TAB PO SCH ×2 (08:52→21:24)
[2019-05-22] MEDS: LIPASE 5,000/PROTEASE 17,000/AMYLASE 24,000 PO SCH ×3 (08:52→18:15)
[2019-05-22] MEDS: RIFAXIMIN 550 MG TABLET PO SCH ×2 (08:52→21:24)
[2019-05-22] MEDS ORDERED: NON FORMULARY DRUG (Vitamin B Complex [Vitamin B Complex] 1 CAP) PO SCH (09:00)
[2019-05-22] MEDS: HYDROCORTISONE 2.5% RECTAL CREAM 30 GM TUBE RECTAL SCH ×2 (09:03→21:17)
--- NOTE | 2019-05-22 11:22 | P.PN ---
Subjective Progress Note Date: 05/22/19 Principal diagnosis: Advance liver cirrhosis, severe ascites, GI bleed, thrombocytopenia, coagulopathy, chronic pain syndrome, malnutrition and history of alcoholism. 43-year-old male one of Dr. Pablo Linn's patient was in the hospital 2 weeks ago for advanced liver disease and up having paracentesis and was seen by Dr. Bowie's office this week apparently was supposed to go for paracentesis as an outpatient by next week but developed to have worsening symptoms ended up coming to [facility] department at [facility] where was seen and evaluated and admitted to the hospital for the above problem. He is also known to Dr. Ghazal Leiva from previous EGDs in the past finding gastritis consistent with portal gastropathy but no gastric or esophageal varices or active bleeding. He has had multipe admissions for acute GI bleed in Jan 2016, Mar 2016 and Mar 2017. He had admission for right leg abscess requiring I&D in December 2017. He has been admitted March for abdominal pain secondary to acute pancreatitis and worsening ascites. He underwent therapeutic paracentesis on April 04 with removal of 4.8 L of fluid. He was admitted again April 20 for ascites and abdominal pain and underwent a therapeutic paracentesis with removal of 2.5 L of serous fluid. Patient was discharged home at that time in stable condition. Patient states he has had gradual increasing fluid developed in his abdomen. He denies having any fever or chills, no nausea or vomiting. He denies any blood or black tarry stools. Patient states the pain is all over including around to his back. He denies having any fever or chills. He denies any alcohol intake for long period of time. 07/21: Patient was seen Dr. Augustine yesterday who agree with the current management and plan, patient is due for paracentesis continue current management continue to correct his electrolyte if he does well after his paracentesis might be able to go home tomorrow. Objective - Vital Signs Vital signs: Vital Signs Temp 98.4 F 05/22/19 05:00 Pulse 91 05/22/19 05:00 Resp 18 05/22/19 05:00 BP 105/59 05/22/19 05:00 Pulse Ox 95 05/22/19 05:00 Intake & Output 03/21/20 03/22/20 03/22/20 18:59 06:59 18:59 Intake Total 840 Balance 840 Intake: Oral 840 Other: Voiding Method Toilet Toilet Toilet Urinal Urinal Urinal # Voids 1 1 - Exam Review of Systems CONSTITUTIONAL: Well-developed no acute respiratory distress. EYES: No icterus sclerae, no conjunctivitis. EARS, NOSE, MOUTH, THROAT, and FACE: No sore throat, lymphadenopathy, carotid bruits or deformity. RESPIRATORY: No SOB cough or wheezes. CARDIOVASCULAR: No CP, Palpitation, PND, Orthopnea, or angina. GASTROINTESTINAL: Positive abdominal distention with nausea significant pain and discomfort with large ascites. GENITOURINARY: Negative for Hematuria or UTI, no kidney stones. INTEGUMENT/BREAST: Negative for any muscular injury with mild osteoarthritis.. HEMATOLOGIC/LYMPHATIC: Negative for bleed or purpura. MUSCULOSKELTAL: Negative for Myalgia or arthralgia. NEURLOGICAL: No LOC, Sz or syncope, blurred vision dizziness or abnormality.. BEHAVIORAL/PSYCH: Negative. ENDOCRINE: Negative. Physical Exam Vitals: General Appearance: Alert, cooperative, no distress, appears stated age. Neck HEENT: Supple, no lymphadenopathy, no thyroid enlargement, no carotid bruits. Mild jaundice Lungs: Clear to auscultation without crackles or wheezes no rhonchi, no deformity. Chest Wall: Decrease expansion with deep inspiration no tenderness and no deformity was found on exam, no costochondral pain or discomfort. Slight decreased breath sound in the right side. Heart: Regular rate and rhythm, S1, S2 normal, no murmur, rub or gallop. Back: Symmetric, no curvature, ROM normal, no CVA tenderness. Abdomen: Significantly distended abdomen with very large ascites and slight tenderness in the right upper quadrant area Extremities: Extremities normal, atraumatic, no cyanosis or edema. Pulses: 2+ and symmetric. Skin: Skin color, texture, tugor normal, no rashes or lesions. Neurologic: Alert oriented x3 cranial nerves II through XII intact, no motor deficit, no abnormal balance or gait. - Labs CBC & Chem 7: 05/22/19 05:42 05/22/19 05:42 Labs: Abnormal Lab Results - Last 24 Hours (Table) 05/21/19 05/22/19 05/22/19 Range/Units 18:19 05:42 05:42 WBC 1.7 L (3.8-10.6) k/uL RBC 3.06 L (4.30-5.90) m/uL Hgb 10.0 L (13.0-17.5) gm/dL Hct 29.9 L (39.0-53.0) % RDW 19.6 H (11.5-15.5) % Plt Count 46 L (150-450) k/uL Neutrophils # (Manual) 0.90 L (1.3-7.7) k/uL Lymphocytes # (Manual) 0.63 L (1.0-4.8) k/uL PT 14.1 H (9.0-12.0) sec INR 1.4 H (<1.2) Sodium (137-145) mmol/L Chloride (98-107) mmol/L Carbon Dioxide (22-30) mmol/L Glucose (74-99) mg/dL Calcium (8.4-10.2) mg/dL Total Bilirubin (0.2-1.3) mg/dL Total Protein (6.3-8.2) g/dL Albumin (3.5-5.0) g/dL Ur Specific [place] 1.036 H (1.001-1.035) Urine Protein 1+ H (Negative) Urine Ketones Trace H (Negative) Urine Bilirubin 1+ H (Negative) Hyaline Casts 6 H (0-2) /lpf Urine Mucus Rare H (None) /hpf 05/22/19 Range/Units 05:42 WBC (3.8-10.6) k/uL RBC (4.30-5.90) m/uL Hgb (13.0-17.5) gm/dL Hct (39.0-53.0) % RDW (11.5-15.5) % Plt Count (150-450) k/uL Neutrophils # (Manual) (1.3-7.7) k/uL Lymphocytes # (Manual) (1.0-4.8) k/uL PT (9.0-12.0) sec INR (<1.2) Sodium 135 L (137-145) mmol/L Chloride 109 H (98-107) mmol/L Carbon Dioxide 20 L (22-30) mmol/L Glucose 104 H (74-99) mg/dL Calcium 8.3 L (8.4-10.2) mg/dL Total Bilirubin 2.3 H (0.2-1.3) mg/dL Total Protein 5.9 L (6.3-8.2) g/dL Albumin 2.8 L (3.5-5.0) g/dL Ur Specific [place] (1.001-1.035) Urine Protein (Negative) Urine Ketones (Negative) Urine Bilirubin (Negative) Hyaline Casts (0-2) /lpf Urine Mucus (None) /hpf Assessment and Plan Plan: 1 advanced cirrhosis of the liver: With increased ascites and worsening symptoms patient will require thoracentesis continue lactulose along with Xifaxan still on Aldactone and furosemide despite all the right medication patient still have worsening ascites require paracentesis almost every 2 weeks, GI will be consult at this point patient will require to have paracentesis and maybe should scheduled for paracentesis every 2 weeks regularly from here on. 2 large ascites with worsening abdominal pain: Continue with Dilaudid smaller dose for pain management ~paracentesis staking effect. 3 history of advanced alcoholic liver with portal hypertension has been seen in been managed by GI on regular basis. 4 GI bleed: With recurrent episode has been on proton ex and Carafate. 5 chronic pancytopenia: Secondary to cirrhosis and alcoholism no change continue to watch his CBC on daily basis. 6. Tobacco use and dependence. Patient quit. 7. Hypothyroidism. Continue levothyroxine 25 g daily. 8. Recurrent depression. Patient was unable to tolerate Zoloft. 9. Peripheral neuropathy secondary to alcoholism and spinal stenosis. 10. Gastroesophageal reflux disease and GI prophylaxis. Continue Protonix and Carafate. 11. DVT prophylaxis. No heparin due to thrombocytopenia. SCDs and ANDREEA hose and early ambulation. 12. Spinal stenosis with peripheral neuropathy. Discharge planning: The patient had paracentesis to warrant doing well might be able to go home tomorrow.
--- NOTE | 2019-05-22 19:21 | P.PN ---
Subjective Progress Note Date: 05/22/19 Principal diagnosis: Decompensated alcoholic cirrhosis, ascites Patient seen lying in bed today. Tolerated diet. Still reporting abdominal pain and distention. Objective - Vital Signs Vital signs: Vital Signs Temp 98.4 F 05/22/19 05:00 Pulse 91 05/22/19 05:00 Resp 18 05/22/19 05:00 BP 105/59 05/22/19 05:00 Pulse Ox 95 05/22/19 05:00 Intake & Output 05/21/19 05/22/19 05/22/19 18:59 06:59 18:59 Intake Total 840 Balance 840 Intake: Oral 840 Other: Voiding Method Toilet Toilet Toilet Urinal Urinal Urinal # Voids 1 1 - Exam On physical examination, patient appears comfortable in no apparent distress. HEAD: Normocephalic, atraumatic. EYES: No scleral icterus. No conjunctival injection. MOUTH: No lesions, tongue midline. NECK: Trachea midline, no gross abnormalities. ABDOMEN: Soft, moderately distended and tender to palpation. Bowel sounds are positive. No organomegaly. No guarding or rigidity. EXTREMITIES: No pedal edema. SKIN: No rashes, no jaundice. NEUROLOGIC: Alert and oriented x3. No focal deficits. - Labs CBC & Chem 7: 05/22/19 05:42 05/22/19 05:42 Labs: Abnormal Lab Results - Last 24 Hours (Table) 05/21/19 05/22/19 05/22/19 Range/Units 18:19 05:42 05:42 WBC 1.7 L (3.8-10.6) k/uL RBC 3.06 L (4.30-5.90) m/uL Hgb 10.0 L (13.0-17.5) gm/dL Hct 29.9 L (39.0-53.0) % RDW 19.6 H (11.5-15.5) % Plt Count 46 L (150-450) k/uL Neutrophils # (Manual) 0.90 L (1.3-7.7) k/uL Lymphocytes # (Manual) 0.63 L (1.0-4.8) k/uL PT 14.1 H (9.0-12.0) sec INR 1.4 H (<1.2) Sodium (137-145) mmol/L Chloride (98-107) mmol/L Carbon Dioxide (22-30) mmol/L Glucose (74-99) mg/dL Calcium (8.4-10.2) mg/dL Total Bilirubin (0.2-1.3) mg/dL Total Protein (6.3-8.2) g/dL Albumin (3.5-5.0) g/dL Ur Specific [place] 1.036 H (1.001-1.035) Urine Protein 1+ H (Negative) Urine Ketones Trace H (Negative) Urine Bilirubin 1+ H (Negative) Hyaline Casts 6 H (0-2) /lpf Urine Mucus Rare H (None) /hpf 05/22/19 Range/Units 05:42 WBC (3.8-10.6) k/uL RBC (4.30-5.90) m/uL Hgb (13.0-17.5) gm/dL Hct (39.0-53.0) % RDW (11.5-15.5) % Plt Count (150-450) k/uL Neutrophils # (Manual) (1.3-7.7) k/uL Lymphocytes # (Manual) (1.0-4.8) k/uL PT (9.0-12.0) sec INR (<1.2) Sodium 135 L (137-145) mmol/L Chloride 109 H (98-107) mmol/L Carbon Dioxide 20 L (22-30) mmol/L Glucose 104 H (74-99) mg/dL Calcium 8.3 L (8.4-10.2) mg/dL Total Bilirubin 2.3 H (0.2-1.3) mg/dL Total Protein 5.9 L (6.3-8.2) g/dL Albumin 2.8 L (3.5-5.0) g/dL Ur Specific [place] (1.001-1.035) Urine Protein (Negative) Urine Ketones (Negative) Urine Bilirubin (Negative) Hyaline Casts (0-2) /lpf Urine Mucus (None) /hpf Assessment and Plan (1) Alcoholic cirrhosis of liver Narrative/Plan: 43-year-old male with known history of decompensated alcoholic cirrhosis who presented to the hospital with abdominal distention and shortness of breath. Patient has required paracentesis in the past which have become more frequent recently. Last paracentesis in April and the patient reports abdominal distention and shortness of breath after this point. He has been seen in the outpatient setting of the gastroenterology service. Currently on diuretic therapy. He denies any fevers, chills, signs or symptoms of GI bleed. Current Visit: No Status: Acute Code(s): K70.30 - ALCOHOLIC CIRRHOSIS OF LIVER WITHOUT ASCITES SNOMED Code(s): 391614619 (2) Abdominal pain Current Visit: Yes Status: Acute Code(s): R10.9 - UNSPECIFIED ABDOMINAL PAIN SNOMED Code(s): 32336277 (3) Ascites Current Visit: Yes Status: Acute Code(s): R18.8 - OTHER ASCITES SNOMED Code(s): 396713269 Plan: Supportive care Okay for sodium restricted diet Continue Aldactone 50 mg twice a day Continue Lasix 40 mg twice a day Midodrine 3 times a day added at this time Can consider up titrating diuretic therapy based on blood pressure,creatinine and electrolytes moving forward IR consulted for paracentesis Lactulose and rifaximin therapy Thank you for allowing us to participate in the care of this patient we will continue to follow
[2019-05-23] MEDS: HYDROmorphone 1 MG/ML 1 ML SYRINGE IVP PRN ×6 (00:27→17:45)
[2019-05-23] MEDS: LEVOTHYROXINE 25 MCG TAB PO SCH (06:29)
[2019-05-23 07:53] LABS: INR 1.4 (<1.2); Prothrombin Time 14.4 sec (9.0-12.0)
[2019-05-23 08:17] LABS: Mean Platelet Volume 8.6
[2019-05-23 08:19] LABS: Platelet Count 37 k/uL (150-450)
[2019-05-23] MEDS: PANTOPRAZOLE 40 MG TABLET PO SCH (08:38)
[2019-05-23] MEDS: LIPASE 5,000/PROTEASE 17,000/AMYLASE 24,000 PO SCH ×3 (08:38→17:42)
[2019-05-23] MEDS: FUROSEMIDE 40 MG TAB PO SCH ×2 (08:39→17:50)
[2019-05-23] MEDS: THIAMINE 100 MG TAB PO SCH ×2 (08:39→17:42)
[2019-05-23] MEDS: SUCRALFATE 1 GM TAB PO SCH ×3 (08:39→17:42)
[2019-05-23] MEDS: MULTIVITAMINS, THERA 1 EACH TAB PO SCH (08:39)
[2019-05-23] MEDS: MAGNESIUM OXIDE 400 MG TAB PO SCH ×2 (08:40→17:42)
[2019-05-23] MEDS: MIDODRINE 5 MG TAB PO SCH ×3 (08:40→17:42)
[2019-05-23] MEDS: LACTULOSE 20 GM/30 ML CUP PO SCH ×3 (08:40→17:43)
[2019-05-23] MEDS: METOPROLOL TARTRATE 25 MG TAB PO SCH (08:41)
[2019-05-23] MEDS: HYDROCORTISONE 2.5% RECTAL CREAM 30 GM TUBE RECTAL SCH (08:41)
[2019-05-23] MEDS: SPIRONOLACTONE 25 MG TAB PO SCH (08:42)
[2019-05-23] MEDS ORDERED: HYDROmorphone 0.5 MG/0.5 ML SYRINGE IVP PRN (09:25)
--- NOTE | 2019-05-23 09:45 | US ---
EXAMINATION TYPE: US abdomen limited DATE OF EXAM: 05/23/2019 COMPARISON: 05/11/2019 CLINICAL HISTORY: assess foe fluid. FINDINGS/TECHNIQUE: Limited abdominal ultrasound was performed in all 4 quadrants to assess for ascit es only. Grayscale imaging was utilized. Fluid is seen in all 4 quadrants with overall moderate abdom inopelvic ascites. IMPRESSION: Moderate abdominopelvic ascites.
[2019-05-23] MEDS: RIFAXIMIN 550 MG TABLET PO SCH (10:04)
[2019-05-23 15:42] VITALS: RESP 20
[2019-05-23 16:00] VITALS: TEMP 98.8
[2019-05-23 16:44] VITALS: BP 101/67; PULSE 73
--- NOTE | 2019-05-23 18:26 | P.PN ---
Subjective Progress Note Date: 05/23/19 Principal diagnosis: Decompensated alcoholic cirrhosis, ascites Patient seen lying in bed today. Tolerated diet but still reporting abdominal distention today with plan for paracentesis later in the day. Objective - Vital Signs Vital signs: Vital Signs Temp 97.0 F L 05/23/19 05:00 Pulse 79 05/23/19 05:00 Resp 16 05/23/19 05:00 BP 101/68 05/23/19 05:00 Pulse Ox 94 L 05/23/19 05:00 Intake & Output 05/22/19 05/23/19 05/23/19 18:59 06:59 18:59 Intake Total 590 Balance 590 Intake: Oral 590 Other: Voiding Method Toilet Toilet Urinal Urinal # Voids 3 2 - Exam On physical examination, patient appears comfortable in no apparent distress. HEAD: Normocephalic, atraumatic. EYES: No scleral icterus. No conjunctival injection. MOUTH: No lesions, tongue midline. NECK: Trachea midline, no gross abnormalities. ABDOMEN: Soft, moderately distended and tender to palpation. Bowel sounds are positive. No organomegaly. No guarding or rigidity. EXTREMITIES: No pedal edema. SKIN: No rashes, no jaundice. NEUROLOGIC: Alert and oriented x3. No focal deficits. - Labs CBC & Chem 7: 05/23/19 07:04 05/22/19 05:42 Labs: Abnormal Lab Results - Last 24 Hours (Table) 05/23/19 05/23/19 Range/Units 07:04 07:04 Plt Count 37 L (150-450) k/uL PT 14.4 H (9.0-12.0) sec INR 1.4 H (<1.2) Assessment and Plan (1) Alcoholic cirrhosis of liver Narrative/Plan: 43-year-old male with known history of decompensated alcoholic cirrhosis who presented to the hospital with abdominal distention and shortness of breath. Patient has required paracentesis in the past which have become more frequent recently. Last paracentesis in April and the patient reports abdominal dist ention and shortness of breath after this point. He has been seen in the outpatient setting of the gastroenterology service. Currently on diuretic therapy. He denies any fevers, chills, signs or symptoms of GI bleed. Current Visit: No Status: Acute Code(s): K70.30 - ALCOHOLIC CIRRHOSIS OF LIVER WITHOUT ASCITES SNOMED Code(s): 436292196 (2) Abdominal pain Current Visit: Yes Status: Acute Code(s): R10.9 - UNSPECIFIED ABDOMINAL PAIN SNOMED Code(s): 73423316 (3) Ascites Current Visit: Yes Status: Acute Code(s): R18.8 - OTHER ASCITES SNOMED Code(s): 808303799 Plan: Supportive care Okay for sodium restricted diet Continue Aldactone 50 mg twice a day Continue Lasix 40 mg twice a day Midodrine 3 times a day added at this time Can consider up titrating diuretic therapy based on blood pressure,creatinine and electrolytes moving forward IR consulted for paracentesis Lactulose and rifaximin therapy Thank you for allowing us to participate in the care of this patient
--- NOTE | 2019-05-24 09:20 | US ---
EXAMINATION TYPE: US paracentesis abd w/image DATE OF EXAM: 05/23/2019 COMPARISON: NONE HISTORY: Ascites. PROCEDURE: Maximal barrier technique was utilized. The skin overlying a suitable pocket of fluid was localized with ultrasound and the overlying skin was prepped and draped. Ultrasound was utilized with sterile technique. Lidocaine was used for local anesthesia and a skin gia made with a scalpel. Catheter was advanced under direct ultrasound guidance into a suitable pocket of fluid and approximately 5.5 liter s of serous fluid were removed. Catheter was withdrawn and hemostasis achieved. There is no immedia te complication; the patient is discharged in stable condition. IMPRESSION: STATUS POST ULTRASOUND GUIDED PARACENTESIS FOR PALLIATION OF ASCITES. THIS PROCEDURE WA S PERFORMED BY THE UNDERSIGNED.
== END 2019-05-23 18:41 | disposition home or self-care (01) | DRG 433 ==
LOC: EC 23:17 → 5NMEDONC 05-21 02:39
PROVIDERS: ADMIT Internal Medicine Geriatric Medicine; ATTEND Internal Medicine Geriatric Medicine
PROC: 0W9G3ZZ Drainage of Peritoneal Cavity, Percutaneous Approach (ICD-10-PCS; principal; 2019-05-23)
DX: K70.31 Alcoholic cirrhosis of liver with ascites (principal); F33.9 Major depressive disorder, recurrent, unspecified; D61.818 Other pancytopenia; D68.9 Coagulation defect, unspecified; E46 Unspecified protein-calorie malnutrition; K76.6 Portal hypertension; K86.1 Other chronic pancreatitis; K92.2 Gastrointestinal hemorrhage, unspecified; F17.210 Nicotine dependence, cigarettes, uncomplicated; G62.1 Alcoholic polyneuropathy; G89.4 Chronic pain syndrome; I10 Essential (primary) hypertension; K70.40 Alcoholic hepatic failure without coma; F10.20 Alcohol dependence, uncomplicated; E03.9 Hypothyroidism, unspecified; M48.00 Spinal stenosis, site unspecified; Z79.890 Hormone replacement therapy; Z79.899 Other long term (current) drug therapy
CPT/HCPCS: 36415; 49083; 76705; 80053; 81001; 82150; 83690; 83735; 85025; 85049; 85610; 85730; 86850; 86900; 86901; 96374; 96375; 96376; 99285

== ENCOUNTER 2019-05-26 19:13 | Emergency (ER) | payer MEDICARE ==
[2019-05-26] MEDS ORDERED: SODIUM CHLORIDE 0.9% 1,000 ML IV STA (19:24)
[2019-05-26] MEDS ORDERED: ONDANSETRON 4 MG/2 ML VIAL IVP STA (19:24)
[2019-05-26] MEDS ORDERED: MORPHINE SULFATE 4 MG/ML SYRINGE IV STA (19:24)
--- NOTE | 2019-05-26 19:27 | ED ---
Abdominal Pain HPI - General Chief Complaint: Abdominal Pain Stated Complaint: Abd pain Time Seen by Provider: 05/26/19 19:21 Source: family, RN notes reviewed, old records reviewed Mode of arrival: ambulatory Limitations: no limitations - History of Present Illness Initial Comments: This is a 43-year-old male DF for evaluation medical history significant for alcoholic cirrhosis gastritis and history of pancreatitis. No significant recent travels or sick contacts patient denies any travel history denies fever at home. No nausea vomiting or diarrhea no cough or congestion. MD Complaint: abdominal pain -: days(s) Location: diffuse Radiation: none Migration to: no migration Severity scale (1-10): 7 Quality: fullness Consistency: constant Improves With: nothing Worsens With: nothing Associated Symptoms: nausea - Related Data Home Medications Medication Instructions Recorded Confirmed Levothyroxine Sodium [Synthroid] 25 mcg PO DAILY 05/07/16 05/26/19 Pantoprazole Sodium [Protonix] 20 mg PO BID 01/02/17 05/26/19 Rifaximin [Xifaxan] 550 mg PO BID 08/02/18 05/26/19 Sucralfate [Carafate] 1 gm PO ACHS 09/22/18 05/26/19 Lipase/Protease/Amylase [Zenpep Dr 5,000 unit PO AC-TID 10/18/18 05/26/19 5,000 Unit Capsule] Multivitamins, Thera [Multivitamin 1 tab PO DAILY 10/18/18 05/26/19 (formulary)] Vitamin B Complex 1 cap PO DAILY 10/18/18 05/26/19 Lactulose [Constulose] 20 gm PO QID 03/11/19 05/26/19 Metoprolol Tartrate [Lopressor] 25 mg PO BID 03/11/19 05/26/19 Previous Rx's Medication Instructions Recorded Magnesium Oxide [Mag-Ox] 200 mg PO TID tab 09/24/18 Thiamine [Vitamin B-1] 100 mg PO BID-W/MEALS tab 09/24/18 Furosemide [Lasix] 40 mg PO BID@0900,1600 #60 tab 04/04/19 Hydrocortisone Pr Cream 1 applic RECTAL BID #30 applic 04/04/19 [Proctosol-Hc 2.5%] Midodrine [ProAmatine] 5 mg PO TID@0900,1300,1800 #90 tab 05/23/19 Spironolactone [Aldactone] 50 mg PO BID #120 tab 05/23/19 Allergies Allergy/AdvReac Type Severity Reaction Status Date / Time No Known Allergies Allergy Verified 05/26/19 20:39 Review of Systems ROS Statement: Those systems with pertinent positive or pertinent negative responses have been documented in the HPI. ROS Other: All systems not noted in ROS Statement are negative. Past Medical History Past Medical History: GERD/Reflux, GI Bleed, Hypertension, Liver Disease, Thyroid Disorder Additional Past Medical History / Comment(s): Liver cirrhosis, portal htn, ETOH abuse, esophageal varicies, upper GI bleed, chronic thrombocytopenia, coagulopathy, pancytopenia, ascities, spinal stenosis: back/leg and feet pain, DDD, chronic back pain, neuropathy bilateral legs/feet, falls, bronchitis, past L rib fractures after fall off ladder,03-05-17 fall w/ head injury. 2010 Guillian [place], chronic pancreatitis History of Any Multi-Drug Resistant Organisms: None Reported Past Surgical History: Appendectomy, Joint Replacement Additional Past Surgical History / Comment(s): EGDs paracentesis, back injections, R thumb reattachment, circumcism. Past Anesthesia/Blood Transfusion Reactions: No Reported Reaction Additional Past Anesthesia/Blood Transfusion Reaction / Comment(s): Pt has received blood without reaction. Past Psychological History: Depression Smoking Status: Current some day smoker Past Alcohol Use History: None Reported Past Drug Use History: None Reported - Past Family History Father Family Medical History: Unable to Obtain Additional Family Medical History / Comment(s): Pt does not know his father's medical hx. Mother Family Medical History: No Reported History Additional Family Medical History / Comment(s): Mother is healthy. Brother(s) Additional Family Medical History / Comment(s): Patient has 3 brothers and one suffers from alcohol abuse. 2 brothers have no major medical problems. Patient does not have any sisters. Patient is one daughter 12 years old with no major medical problems. General Exam Limitations: no limitations General appearance: alert, in no apparent distress Head exam: Present: atraumatic, normocephalic, normal inspection Eye exam: Present: normal appearance, PERRL, EOMI. Absent: scleral icterus, conjunctival injection, periorbital swelling ENT exam: Present: normal exam, mucous membranes moist Neck exam: Present: normal inspection. Absent: tenderness, meningismus, lymphadenopathy Respiratory exam: Present: normal lung sounds bilaterally. Absent: respiratory distress, wheezes, rales, rhonchi, stridor Cardiovascular Exam: Present: regular rate, normal rhythm, normal heart sounds. Absent: systolic murmur, diastolic murmur, rubs, gallop, clicks GI/Abdominal exam: Present: soft, normal bowel sounds. Absent: distended, tenderness, guarding, rebound, rigid Extremities exam: Present: normal inspection, full ROM, normal capillary refill. Absent: tenderness, pedal edema, joint swelling, calf tenderness Back exam: Present: normal inspection Neurological exam: Present: alert, oriented X3, CN II-XII intact Psychiatric exam: Present: normal affect, normal mood Skin exam: Present: warm, dry, intact, normal color. Absent: rash Course Vital Signs 05/26/19 05/26/19 05/26/19 19:15 19:28 20:26 Temperature 101.0 F H 98.6 F 99.6 F Pulse Rate 98 86 Respiratory 18 20 Rate Blood Pressure 111/78 113/43 O2 Sat by Pulse 100 100 100 Oximetry 05/26/19 22:29 Temperature 99.6 F Pulse Rate 84 Respiratory 18 Rate Blood Pressure 112/79 O2 Sat by Pulse 100 Oximetry - Reevaluation(s) Reevaluation #1: Medical records reviewed Patient is able to achieve pain control after second dose of pain medication Spoke patient's admitting physician patient did voluntarily Hospital yesterday does not believe he has significant acute relation of fluid reward urgent paracentesis at this time and patient will continue appointment for Thursday Medical Decision Making - Medical Decision Making 43 male DF for evaluation history of alcoholic cirrhosis, patient will be di scharged home he is given pain control here in the ER patient control for home did speak with patient's primary care states patient was discharged yesterday and will follow-up for therapeutic paracentesis on Thursday as scheduled - Lab Data Result diagrams: 05/26/19 19:33 05/26/19 19:33 Lab Results 05/26/19 05/26/19 05/26/19 Range/Units 19:33 19:33 19:33 WBC 2.6 L (3.8-10.6) k/uL RBC 3.45 L (4.30-5.90) m/uL Hgb 11.4 L (13.0-17.5) gm/dL Hct 34.0 L (39.0-53.0) % MCV 98.6 (80.0-100.0) fL MCH 33.0 (25.0-35.0) pg MCHC 33.5 (31.0-37.0) g/dL RDW 19.5 H (11.5-15.5) % Plt Count 51 L (150-450) k/uL Neutrophils % 68 % Lymphocytes % 16 % Monocytes % 9 % Eosinophils % 4 % Basophils % 1 % Neutrophils # 1.7 (1.3-7.7) k/uL Lymphocytes # 0.4 L (1.0-4.8) k/uL Monocytes # 0.2 (0-1.0) k/uL Eosinophils # 0.1 (0-0.7) k/uL Basophils # 0.0 (0-0.2) k/uL Anisocytosis Slight Macrocytosis Moderate Sodium 140 (137-145) mmol/L Potassium 4.4 (3.5-5.1) mmol/L Chloride 113 H (98-107) mmol/L Carbon Dioxide 17 L (22-30) mmol/L Anion Gap 10 mmol/L BUN 19 (9-20) mg/dL Creatinine 1.05 (0.66-1.25) mg/dL Est GFR (CKD-EPI)AfAm >90 (>60 ml/min/1.73 sqM) Est GFR (CKD-EPI)NonAf 87 (>60 ml/min/1.73 sqM) Glucose 163 H (74-99) mg/dL Calcium 8.1 L (8.4-10.2) mg/dL Phosphorus 3.3 (2.5-4.5) mg/dL Magnesium 1.6 (1.6-2.3) mg/dL Total Bilirubin 2.5 H (0.2-1.3) mg/dL AST 48 (17-59) U/L ALT 16 (4-49) U/L Alkaline Phosphatase 73 (38-126) U/L Ammonia 54 H (<30) umol/L Total Protein 7.0 (6.3-8.2) g/dL Albumin 3.5 (3.5-5.0) g/dL Amylase 121 H (30-110) U/L Lipase 833 H (23-300) U/L - Radiology Data Radiology results: report reviewed (X-ray abdominal series the chest is negative for acute disease), image reviewed Disposition Clinical Impression: Chronic pain, Abdominal pain, Alcoholic cirrhosis of liver, Ascites Disposition: HOME SELF-CARE Condition: Good Instructions (If sedation given, give patient instructions): Abdominal Pain (ED) Is patient prescribed a controlled substance at d/c from ED?: No Referrals: Pablo Linn MD [Primary Care Provider] - 1-2 days
[2019-05-26 19:47] LABS: Anisocytosis Slight; Basophils % (A) 1 %; Eosinophils # (A) 0.1 k/uL (0-0.7); Eosinophils % (A) 4 %; HGB 11.4 gm/dL (13.0-17.5); Lymphocytes # (A) 0.4 k/uL (1.0-4.8); Lymphocytes % (A) 16 %; MCHC 33.5 g/dL (31.0-37.0); MCV 98.6 fL (80.0-100.0); Macrocytosis Moderate; Mean Platelet Volume 8.6; Monocytes # (A) 0.2 k/uL (0-1.0); Monocytes % (A) 9 %; Neutrophils # (A) 1.7 k/uL (1.3-7.7); Neutrophils % (A) 68 %; RBC 3.45 m/uL (4.30-5.90); RDW 19.5 % (11.5-15.5); WBC 2.6 k/uL (3.8-10.6)
[2019-05-26 19:57] LABS: ALT 16 U/L (4-49); AST 48 U/L (17-59); African American GFR (CKD) >90 (>60 ml/min/1.73 sqM); Albumin 3.5 g/dL (3.5-5.0); Alkaline Phosphatase 73 U/L (38-126); Amylase 121 U/L (30-110); Anion Gap 10 mmol/L; Blood Urea Nitrogen 19 mg/dL (9-20); Calcium 8.1 mg/dL (8.4-10.2); Carbon Dioxide 17 mmol/L (22-30); Chloride 113 mmol/L (98-107); Glucose 163 mg/dL (74-99); Magnesium 1.6 mg/dL (1.6-2.3); Non-African American GFR(CKD) 87 (>60 ml/min/1.73 sqM); Phosphorus 3.3 mg/dL (2.5-4.5); Potassium 4.4 mmol/L (3.5-5.1); Sodium 140 mmol/L (137-145); Total Bilirubin 2.5 mg/dL (0.2-1.3)
[2019-05-26 20:14] LABS: Platelet Count 51 k/uL (150-450)
--- NOTE | 2019-05-26 20:20 | XR ---
EXAMINATION TYPE: XR abdomen acute w cxr DATE OF EXAM: 05/26/2019 COMPARISON: 03/05/2017 and 01/02/2017 HISTORY: Abdominal pain. Ascites. TECHNIQUE: 4 views FINDINGS: There is no heart failure nor confluent pneumonic infiltrate. There is slight increased den sity over the abdomen consistent with ascites. There is no evidence of free air. There are no patholo gic calcifications over the kidneys. IMPRESSION: Heart and lungs are not changed compared to old exam. there is evidence of abdominal asc ites that appears new compared to old abdomen x-ray.
[2019-05-26 20:27] VITALS: TEMP 99.6
[2019-05-26] MEDS ORDERED: HYDROmorphone 1 MG/ML 1 ML SYRINGE IVP STA (22:12)
[2019-05-26 22:31] VITALS: BP 112/79; PULSE 84; RESP 18
[2019-05-26] MEDS ORDERED: ACET/COD 300 MG/30 MG STARTER PACK 6 TAB BTL PO STA (22:36)
== END 2019-05-26 23:30 | disposition home or self-care (01) ==
LOC: EC 19:13
DX: K70.31 Alcoholic cirrhosis of liver with ascites (principal); G89.29 Other chronic pain; K21.9 Gastro-esophageal reflux disease without esophagitis; I10 Essential (primary) hypertension; E07.9 Disorder of thyroid, unspecified; F32.9 Major depressive disorder, single episode, unspecified; F17.200 Nicotine dependence, unspecified, uncomplicated; Z87.19 Personal history of other diseases of the digestive system; Z90.49 Acquired absence of other specified parts of digestive tract; Z96.698 Presence of other orthopedic joint implants; Z98.890 Other specified postprocedural states; Z79.890 Hormone replacement therapy; Z79.899 Other long term (current) drug therapy
CPT/HCPCS: 36415; 80053; 82140; 82150; 83690; 83735; 84100; 85025; 74022; 99284; 96374; 96375 ×2; 96361 ×3; J2270; J2405; J1170

== ENCOUNTER 2019-05-30 08:54 | Day surgery (SDC) | payer MEDICARE ==
[2019-05-30 09:12] VITALS: BP 102/70; PULSE 85; RESP 16; TEMP 98.8
[2019-05-30 09:40] LABS: Mean Platelet Volume 8.5
[2019-05-30 09:44] LABS: Platelet Count 45 k/uL (150-450)
[2019-05-30 09:50] LABS: INR 1.4 (<1.2); Prothrombin Time 13.5 sec (9.0-12.0)
[2019-05-30 10:13] LABS: African American GFR (CKD) >90 (>60 ml/min/1.73 sqM); Non-African American GFR(CKD) 89 (>60 ml/min/1.73 sqM)
== END 2019-05-30 10:15 | disposition other institution (70) ==
LOC: RADPROMAIN 08:54
PROVIDERS: ATTEND Internal Medicine Gastroenterology
DX: R18.8 Other ascites (principal); Z53.8 Procedure and treatment not carried out for other reasons
CPT/HCPCS: 36415; 82565; 85049; 85610

== ENCOUNTER 2019-05-30 10:10 | Observation (INO) | payer MEDICARE ==
[2019-05-30] MEDS ORDERED: HYDROmorphone 1 MG/ML 1 ML SYRINGE IVP STA ×2 (10:34→13:16)
[2019-05-30] MEDS ORDERED: PANTOPRAZOLE 40 MG/10 ML VIAL IVP STA (10:34)
[2019-05-30] MEDS ORDERED: SODIUM CHLORIDE 0.9% 500 ML 500 ML IV STA (10:34)
[2019-05-30] MEDS ORDERED: ONDANSETRON 4 MG/2 ML VIAL IVP STA (10:34)
--- NOTE | 2019-05-30 10:49 | ED ---
Recheck HPI - General Source: patient, RN/, RN notes reviewed, old records reviewed Mode of arrival: wheelchair Limitations: no limitations <Enedelia Grande - Last Filed: 05/30/19 13:39> <Britany Dailey - Last Filed: 06/05/19 15:23> - General Chief Complaint: Recheck/Abnormal Lab/Rx Stated Complaint: Low Platelets Time Seen by Provider: 05/30/19 10:18 - History of Present Illness Initial Comments: Patient is a 43-year-old male with history of ascites presents today after having abnormal platelet levels and he was unable to have his paracentesis performed. His platelet levels are 45. He states that he is due for paracentesis. Patient states that he has had no chest pain or shortness of breath. Patient's last paracentesis was done on May 22. He states that approximately week ago. He states he's been trying to schedule to get these done out patiently. Patient reports that he is quite uncomfortable with abdominal distention. He reports his GI specialist is Dr. Bowie was less admitted to the hospital under Dr. vora. He also was prescribed spironolactone and the prescription was not made available until today's has not had this. (Enedelia Grande) - Related Data Home Medications Medication Instructions Recorded Confirmed Levothyroxine Sodium [Synthroid] 25 mcg PO DAILY 05/07/16 05/30/19 Pantoprazole Sodium [Protonix] 20 mg PO BID 01/02/17 05/30/19 Rifaximin [Xifaxan] 550 mg PO BID 08/02/18 05/30/19 Sucralfate [Carafate] 1 gm PO ACHS 09/22/18 05/30/19 Lipase/Protease/Amylase [Zenpep Dr 5,000 unit PO AC-TID 10/18/18 05/30/19 5,000 Unit Capsule] Multivitamins, Thera [Multivitamin 1 tab PO DAILY 10/18/18 05/30/19 (formulary)] Vitamin B Complex 1 cap PO DAILY 10/18/18 05/30/19 Lactulose [Constulose] 20 gm PO QID 03/11/19 05/30/19 Metoprolol Tartrate [Lopressor] 25 mg PO BID 03/11/19 05/30/19 Previous Rx's Medication Instructions Recorded Magnesium Oxide [Mag-Ox] 200 mg PO TID tab 09/24/18 Thiamine [Vitamin B-1] 100 mg PO BID-W/MEALS tab 09/24/18 Furosemide [Lasix] 40 mg PO BID@0900,1600 #60 tab 04/04/19 Midodrine [ProAmatine] 5 mg PO TID@0900,1300,1800 #90 tab 05/23/19 Spironolactone [Aldactone] 50 mg PO BID #120 tab 05/23/19 traMADol HCL [Ultram] 50 mg PO Q6HR PRN 3 Days #12 tab 06/01/19 Allergies Allergy/AdvReac Type Severity Reaction Status Date / Time No Known Allergies Allergy Verified 05/30/19 10:42 Review of Systems ROS Other: All systems not noted in ROS Statement are negative. <Enedelia Grande - Last Filed: 05/30/19 13:39> ROS Other: All systems not noted in ROS Statement are negative. <Britany Dailey - Last Filed: 06/05/19 15:23> ROS Statement: Those systems with pertinent positive or pertinent negative responses have been documented in the HPI. Past Medical History Past Medical History: GERD/Reflux, GI Bleed, Hypertension, Liver Disease, Thyroid Disorder Additional Past Medical History / Comment(s): Liver cirrhosis, portal htn, ETOH abuse, esophageal varicies, upper GI bleed, chronic thrombocytopenia, coagulopathy, pancytopenia, ascities, spinal stenosis: back/leg and feet pain, DDD, chronic back pain, neuropathy bilateral legs/feet, falls, bronchitis, past L rib fractures after fall off ladder,1-18 fall w/ head injury. 2010 Guillian [place], chronic pancreatitis History of Any Multi-Drug Resistant Organisms: None Reported Past Surgical History: Appendectomy, Joint Replacement Additional Past Surgical History / Comment(s): EGDs paracentesis, back injections, R thumb reattachment, circumcism. Past Anesthesia/Blood Transfusion Reactions: No Reported Reaction Additional Past Anesthesia/Blood Transfusion Reaction / Comment(s): Pt has received blood without reaction. Past Psychological History: No Psychological Hx Reported, Depression Smoking Status: Current some day smoker Past Alcohol Use History: None Reported, Abuse Past Drug Use History: None Reported - Past Family History Father Family Medical History: Unable to Obtain Additional Family Medical History / Comment(s): Pt does not know his father's medical hx. Mother Family Medical History: No Reported History Additional Family Medical History / Comment(s): Mother is healthy. Brother(s) Additional Family Medical History / Comment(s): Patient has 3 brothers and one suffers from alcohol abuse. 2 brothers have no major medical problems. Patient does not have any sisters. Patient is one daughter 12 years old with no major medical problems. <Enedelia Grande - Last Filed: 05/30/19 13:39> General Exam Limitations: no limitations General appearance: alert, in no apparent distress Head exam: Present: atraumatic, normocephalic, normal inspection Eye exam: Present: normal appearance, PERRL, EOMI. Absent: scleral icterus, conjunctival injection, periorbital swelling ENT exam: Present: normal exam, mucous membranes moist Neck exam: Present: normal inspection. Absent: tenderness, meningismus, lymphadenopathy Respiratory exam: Present: normal lung sounds bilaterally. Absent: respiratory distress, wheezes, rales, rhonchi, stridor Cardiovascular Exam: Present: regular rate, normal rhythm, normal heart sounds. Absent: systolic murmur, diastolic murmur, rubs, gallop, clicks GI/Abdominal exam: Present: soft, distended, tenderness, normal bowel sounds. Absent: guarding, rebound, rigid Extremities exam: Present: normal inspection Back exam: Present: normal inspection Neurological exam: Present: alert, oriented X3, CN II-XII intact Psychiatric exam: Present: normal affect, normal mood Skin exam: Present: warm, dry, intact, normal color. Absent: rash <Enedelia Grande - Last Filed: 05/30/19 13:39> - General Exam Comments Initial Comments: 43-year-old male. Alert and oriented. No distress. (Enedelia Grande) Course <Enedelia Grande - Last Filed: 05/30/19 13:39> Vital Signs 05/30/19 05/30/19 10:16 14:27 Temperature 98.3 F 98.4 F Pulse Rate 79 94 Respiratory 18 18 Rate Blood Pressure 120/85 111/74 O2 Sat by Pulse 100 100 Oximetry - Reevaluation(s) Reevaluation #1: 05/30/19 12:52 Case was discussed with Dr. Hyman who discussed the case with Dr. Bowie. Recommended dosing platelets at this time and calling interventional radiology to have the procedure still done today rather than be admitted. Call was placed to IR. (Enedelia Grande) Medical Decision Making - Lab Data Result diagrams: 05/30/19 10:15 05/30/19 10:15 <Enedelia Grande - Last Filed: 05/30/19 13:39> - Lab Data Result diagrams: 05/31/19 05:34 05/30/19 10:15 <Britany Dailey - Last Filed: 06/05/19 15:23> - Medical Decision Making 43-year-old male presents emergency department today for evaluation for low platelets and unable to have his outpatient procedure paracentesis. He complains of abdominal distention and pain. Patient's platelets are rechecked and they're now 47. He cannot have the procedure unless his platelets were 50. We discussed the case with Dr. Bowie recommended dosing platelets and attempting to do procedure out patiently. We contacted interventional radiology and they stated that they are not able to do the procedure today. Patient's persistent pain Patient was case was then discussed with Dr. Dr. Garg who will accept the observation admit. Patient did have units of platelets ordered and that he can receive this prior to procedure if his platelets are below 50. (Enedelia Grande) I was available for consultation in the emergency department. The history and physical exam were done by the midlevel provider. I was consulted for this patients care. I reviewed the case with the midlevel provider and based on their presentation of the patient, I agree with the assessment, medical decision making and plan of care as documented. I discussed the case with Dr. Leiva who requested the patient be transfused platelets and the IR procedure performed today. I discussed the case with Dr. Nunes who stated he would be unable to performed the IR drainage today and that the procedure would have to be completed tomorrow as his staff has already left for the day. I discussed the case with Dr. Godfrey who accepted admission of the patient. Chart was dictated using [employer] dictation software. Attempts were made to correct any dictation errors however some typographical errors may persist. Patient was seen during the Covid-19 pandemic. (Britany Dailey) - Lab Data Lab Results 05/30/19 05/30/19 05/30/19 Range/Units 10:15 10:15 10:15 WBC 2.4 L (3.8-10.6) k/uL RBC 3.50 L (4.30-5.90) m/uL Hgb 11.5 L (13.0-17.5) gm/dL Hct 34.1 L (39.0-53.0) % MCV 97.5 (80.0-100.0) fL MCH 32.8 (25.0-35.0) pg MCHC 33.6 (31.0-37.0) g/dL RDW 19.4 H (11.5-15.5) % Plt Count 47 L (150-450) k/uL Neutrophils % 64 % Lymphocytes % 21 % Monocytes % 9 % Eosinophils % 2 % Basophils % 1 % Neutrophils # 1.5 (1.3-7.7) k/uL Lymphocytes # 0.5 L (1.0-4.8) k/uL Monocytes # 0.2 (0-1.0) k/uL Eosinophils # 0.1 (0-0.7) k/uL Basophils # 0.0 (0-0.2) k/uL Anisocytosis Slight Macrocytosis Slight PT 13.8 H (9.0-12.0) sec INR 1.4 H (<1.2) APTT 24.5 (22.0-30.0) sec Sodium 137 (137-145) mmol/L Potassium 4.1 (3.5-5.1) mmol/L Chloride 109 H (98-107) mmol/L Carbon Dioxide 21 L (22-30) mmol/L Anion Gap 7 mmol/L BUN 22 H (9-20) mg/dL Creatinine 0.96 (0.66-1.25) mg/dL Est GFR (CKD-EPI)AfAm >90 (>60 ml/min/1.73 sqM) Est GFR (CKD-EPI)NonAf >90 (>60 ml/min/1.73 sqM) Glucose 162 H (74-99) mg/dL Calcium 8.2 L (8.4-10.2) mg/dL Total Bilirubin 1.9 H (0.2-1.3) mg/dL AST 38 (17-59) U/L ALT 13 (4-49) U/L Alkaline Phosphatase 69 (38-126) U/L Total Protein 6.6 (6.3-8.2) g/dL Albumin 3.2 L (3.5-5.0) g/dL Amylase 113 H (30-110) U/L Lipase 417 H (23-300) U/L Blood Type Blood Type Recheck Bld Type Recheck Status Antibody Screen Spec Expiration Date 05/30/19 Range/Units 10:20 WBC (3.8-10.6) k/uL RBC (4.30-5.90) m/uL Hgb (13.0-17.5) gm/dL Hct (39.0-53.0) % MCV (80.0-100.0) fL MCH (25.0-35.0) pg MCHC (31.0-37.0) g/dL RDW (11.5-15.5) % Plt Count (150-450) k/uL Neutrophils % % Lymphocytes % % Monocytes % % Eosinophils % % Basophils % % Neutrophils # (1.3-7.7) k/uL Lymphocytes # (1.0-4.8) k/uL Monocytes # (0-1.0) k/uL Eosinophils # (0-0.7) k/uL Basophils # (0-0.2) k/uL Anisocytosis Macrocytosis PT (9.0-12.0) sec INR (<1.2) APTT (22.0-30.0) sec Sodium (137-145) mmol/L Potassium (3.5-5.1) mmol/L Chloride (98-107) mmol/L Carbon Dioxide (22-30) mmol/L Anion Gap mmol/L BUN (9-20) mg/dL Creatinine (0.66-1.25) mg/dL Est GFR (CKD-EPI)AfAm (>60 ml/min/1.73 sqM) Est GFR (CKD-EPI)NonAf (>60 ml/min/1.73 sqM) Glucose (74-99) mg/dL Calcium (8.4-10.2) mg/dL Total Bilirubin (0.2-1.3) mg/dL AST (17-59) U/L ALT (4-49) U/L Alkaline Phosphatase (38-126) U/L Total Protein (6.3-8.2) g/dL Albumin (3.5-5.0) g/dL Amylase (30-110) U/L Lipase (23-300) U/L Blood Type O Negative Blood Type Recheck O Neg Bld Type Recheck Status No Antibody Screen NEGATIVE Spec Expiration Date 06/02/20192319 Disposition Is patient prescribed a controlled substance at d/c from ED?: No Time of Disposition: 13:42 <Enedelia Grande - Last Filed: 05/30/19 13:39> <Britany Dailey - Last Filed: 06/05/19 15:23> Clinical Impression: Ascites, Thrombocytopenia Disposition: ADMITTED IP TO THIS HOSP Condition: Good
[2019-05-30 10:52] LABS: Anisocytosis Slight; Basophils % (A) 1 %; Eosinophils # (A) 0.1 k/uL (0-0.7); Eosinophils % (A) 2 %; HCT 34.1 % (39.0-53.0); HGB 11.5 gm/dL (13.0-17.5); Lymphocytes # (A) 0.5 k/uL (1.0-4.8); Lymphocytes % (A) 21 %; MCH 32.8 pg (25.0-35.0); MCHC 33.6 g/dL (31.0-37.0); MCV 97.5 fL (80.0-100.0); Macrocytosis Slight; Mean Platelet Volume 10.3; Monocytes # (A) 0.2 k/uL (0-1.0); Monocytes % (A) 9 %; Neutrophils # (A) 1.5 k/uL (1.3-7.7); Neutrophils % (A) 64 %; RDW 19.4 % (11.5-15.5); WBC 2.4 k/uL (3.8-10.6)
[2019-05-30 10:56] LABS: ALT 13 U/L (4-49); AST 38 U/L (17-59); African American GFR (CKD) >90 (>60 ml/min/1.73 sqM); Albumin 3.2 g/dL (3.5-5.0); Alkaline Phosphatase 69 U/L (38-126); Amylase 113 U/L (30-110); Anion Gap 7 mmol/L; Blood Urea Nitrogen 22 mg/dL (9-20); Calcium 8.2 mg/dL (8.4-10.2); Carbon Dioxide 21 mmol/L (22-30); Chloride 109 mmol/L (98-107); Glucose 162 mg/dL (74-99); Non-African American GFR(CKD) >90 (>60 ml/min/1.73 sqM); Platelet Count 47 k/uL (150-450); Potassium 4.1 mmol/L (3.5-5.1); Sodium 137 mmol/L (137-145); Total Bilirubin 1.9 mg/dL (0.2-1.3); Total Protein 6.6 g/dL (6.3-8.2)
[2019-05-30 10:59] LABS: INR 1.4 (<1.2); Partial Thromboplastin Time 24.5 sec (22.0-30.0); Prothrombin Time 13.8 sec (9.0-12.0)
[2019-05-30] MEDS ORDERED: NALOXONE 0.4 MG/ML 1 ML VIAL IV PRN (13:43)
[2019-05-30] MEDS ORDERED: MORPHINE SULFATE 4 MG/ML SYRINGE IV PRN (13:43)
[2019-05-30] MEDS ORDERED: ONDANSETRON 4 MG/2 ML VIAL IVP PRN (13:43)
[2019-05-30] MEDS: SODIUM CHLORIDE 0.9% 1,000 ML IV SCH (14:29)
--- NOTE | 2019-05-30 15:14 | P.HPIM ---
History of Present Illness H&P Date: 05/30/19 Chief Complaint: Abdominal ascites This is a 43-year-old male patient of Dr. Sarmad Linn. He has history of alcohol liver cirrhosis with portal hypertension and previous GI bleeding, hypertension and gastritis, pancreatitis, spinal stenosis and peripheral neuropathy. Patient also has chronic back pain and was under the care of Dr. Lagunas but violated pain contract and no longer seen by pain management. He is also known to Dr. Ghazal Leiva from previous EGDs in the past finding gastritis consistent with portal gastropathy but no gastric or esophageal varices or active bleeding. He has had multipe admissions for acute GI bleed in Jan 2016, Mar 2016 and Mar 2017. He had admission for right leg abscess requiring I&D in December 2017. He has been admitted March for abdominal pain secondary to acute pancreatitis and worsening ascites. He underwent therapeutic paracentesis on April 04 with removal of 4.8 L of fluid. He was admitted again April 20 for ascites and abdominal pain and underwent a therapeutic paracentesis with removal of 2.5 L of serous fluid. He was then admitted May 10 underwent therapeutic paracentesis with removal of 6.4 L of serous fluid and again on May 22 5.5 L of serous fluid was removed. Patient came back in the emergency center on May 25 for ascites and was discharged home. Patient states he has follow-up with Deb SCOTT in the office with Dr. Leiva and was placed on 2 new medications but he has not picked up the prescriptions. He presents today complaining of abdominal distention, ascites and abdominal carmen n. Patient was found to be afebrile, heart rate 79, blood pressure 120/85 pulse ox 100% on room air. WBC 2.4, hemoglobin 11.5, platelet count 47, INR 1.4, CO2 21, BUN 22, creatinine 0.96, blood sugar 162, total bilirubin 1.9, liver function tests otherwise normal, albumin 3.2, lipase 417, amylase 113. ER attempted to have platelet transfusion and interventional radiology perform therapeutic par acentesis by interventional radiology was on able to do this. Patient will be placed on the [facility] floor, currently waiting for a bed in the emergency center. Consult in place with interventional radiology for paracentesis to be done tomorrow. One unit of platelets ordered to transfuse in the morning. Review of Systems Constitutional: Reports poor appetite, Denies anorexia, Denies chills, Denies fever, Denies lethargy, Denies malaise Eyes: denies blurred vision, denies pain Ears, nose, mouth and throat: Denies dysphagia, Denies headache, Denies nasal congestion, Denies nasal discharge, Denies sore throat, Denies vertigo Cardiovascular: Denies chest pain, Denies lightheadedness, Denies shortness of breath, Denies syncope Respiratory: Denies cough, Denies cough with sputum, Denies dyspnea, Denies excessive sputum, Denies hemoptysis, Denies home oxygen, Denies respiratory infections, Denies sleep apnea, Denies wheezing Gastrointestinal: Reports abdominal pain, Reports bloating, Reports loss of appetite, Reports nausea, Denies diarrhea, Denies vomiting Genitourinary: Denies dysuria, Denies urinary retention Musculoskeletal: Denies frequent falls, Denies gait dysfunction, Denies muscle weakness, Denies myalgias Integumentary: Denies pruritus, Denies rash, Denies wounds Neurological: Denies change in mentation, Denies change in speech, Denies numbness, Denies weakness Psychiatric: Denies anxiety, Denies depression Endocrine: Denies fatigue, Denies weight change Past Medical History Past Medical History: GERD/Reflux, GI Bleed, Hypertension, Liver Disease, Thyroid Disorder Additional Past Medical History / Comment(s): Liver cirrhosis, portal htn, ETOH abuse, esophageal varicies, upper GI bleed, chronic thrombocytopenia, coagulopathy, pancytopenia, ascities, spinal stenosis: back/leg and feet pain, DDD, chronic back pain, neuropathy bilateral legs/feet, falls, bronchitis, past L rib fractures after fall off ladder,18 fall w/ head injury. 2010 [facility] [place], chronic pancreatitis History of Any Multi-Drug Resistant Organisms: None Reported Past Surgical History: Appendectomy, Joint Replacement Additional Past Surgical History / Comment(s): EGDs paracentesis, back injections, R thumb reattachment, circumcism. Past Anesthesia/Blood Transfusion Reactions: No Reported Reaction Additional Past Anesthesia/Blood Transfusion Reaction / Comment(s): Pt has recei cathleen blood without reaction. Past Psychological History: No Psychological Hx Reported, Depression Smoking Status: Current some day smoker Past Alcohol Use History: None Reported, Abuse Additional Past Alcohol Use History / Comment(s): Patient is a smoker of a pack per day for 27 years currently down to a few puffs a day. He denies any marijuana or street drug use. He does have history of heavy alcohol use with drinking up to a pint per day for 7 years but he currently is only drinking an occasional beer. He is on disability. He is currently living with his mother. He does have a dog in the home exposure to his daughter's cat. He uses a cane for ambulation. Past Drug Use History: None Reported - Past Family History Father Family Medical History: Unable to Obtain Additional Family Medical History / Comment(s): Pt does not know his father's medical hx. Mother Family Medical History: No Reported History Additional Family Medical History / Comment(s): Mother is healthy. Brother(s) Additional Family Medical History / Comment(s): Patient has 3 brothers and one suffers from alcohol abuse. 2 brothers have no major medical problems. Patient does not have any sisters. Patient is one daughter 12 years old with no major medical problems. Medications and Allergies Home Medications Medication Instructions Recorded Confirmed Type Levothyroxine Sodium [Synthroid] 25 mcg PO DAILY 05/07/16 05/30/19 History Pantoprazole Sodium [Protonix] 20 mg PO BID 01/02/17 05/30/19 History Rifaximin [Xifaxan] 550 mg PO BID 08/02/18 05/30/19 History Sucralfate [Carafate] 1 gm PO ACHS 09/22/18 05/30/19 History Magnesium Oxide [Mag-Ox] 200 mg PO TID tab 09/24/18 05/30/19 Rx Thiamine [Vitamin B-1] 100 mg PO BID-W/MEALS tab 09/24/18 05/30/19 Rx Lipase/Protease/Amylase [Zenpep Dr 5,000 unit PO AC-TID 10/18/18 05/30/19 History 5,000 Unit Capsule] Multivitamins, Thera [Multivitamin 1 tab PO DAILY 10/18/18 05/30/19 History (formulary)] Vitamin B Complex 1 cap PO DAILY 10/18/18 05/30/19 History Lactulose [Constulose] 20 gm PO QID 03/11/19 05/30/19 History Metoprolol Tartrate [Lopressor] 25 mg PO BID 03/11/19 05/30/19 History Furosemide [Lasix] 40 mg PO BID@0900,1600 #60 tab 04/04/19 05/30/19 Rx Midodrine [ProAmatine] 5 mg PO TID@0900,1300,1800 #90 tab 05/23/19 05/30/19 Rx Spironolactone [Aldactone] 50 mg PO BID #120 tab 05/23/19 05/30/19 Rx Allergies Allergy/AdvReac Type Severity Reaction Status Date / Time No Known Allergies Allergy Verified 05/30/19 10:42 Physical Exam Vitals: Vital Signs Temp Pulse Resp BP Pulse Ox 05/30/19 14:27 98.4 F 94 18 111/74 100 05/30/19 10:16 98.3 F 79 18 120/85 100 Intake and Output 05/29/19 05/30/19 05/30/19 22:59 06:59 14:59 Other: Weight 58.967 kg Gen: This is a 43-year-old male. Patient is resting on ER stretcher and appears uncomfortable due to pain with no acute respiratory distress. HEENT: Head is atraumatic, normocephalic. Pupils equal, round. Sclerae is anicteric. NECK: Supple. No JVD. No lymphadenopathy. No thyromegaly. LUNGS: Clear to auscultation. No wheezes or rhonchi. No intercostal retracti ons. HEART: Regular rate and rhythm. No murmur. ABDOMEN: Significant abdominal distention with diffuse ascites. Bowel sounds are present. No masses. Generalized tenderness. EXTREMITIES: No pedal edema. No calf tenderness. Dorsalis pedis +2 bilaterally. NEUROLOGICAL: Patient is awake, alert and oriented x3. Cranial nerves 2 through 12 are grossly intact. Results CBC & Chem 7: 05/30/19 10:15 05/30/19 10:15 Labs: Abnormal Lab Results - Last 24 Hours (Table) 05/30/19 05/30/19 05/30/19 Range/Units 10:15 10:15 10:15 WBC 2.4 L (3.8-10.6) k/uL RBC 3.50 L (4.30-5.90) m/uL Hgb 11.5 L (13.0-17.5) gm/dL Hct 34.1 L (39.0-53.0) % RDW 19.4 H (11.5-15.5) % Plt Count 47 L (150-450) k/uL Lymphocytes # 0.5 L (1.0-4.8) k/uL PT 13.8 H (9.0-12.0) sec INR 1.4 H (<1.2) Chloride 109 H (98-107) mmol/L Carbon Dioxide 21 L (22-30) mmol/L BUN 22 H (9-20) mg/dL Glucose 162 H (74-99) mg/dL Calcium 8.2 L (8.4-10.2) mg/dL Total Bilirubin 1.9 H (0.2-1.3) mg/dL Albumin 3.2 L (3.5-5.0) g/dL Amylase 113 H (30-110) U/L Lipase 417 H (23-300) U/L Thrombosis Risk Factor Assmnt - DVT/VTE Prophylaxis DVT/VTE Prophylaxis: Mechanical Prophylaxis ordered Assessment and Plan Plan: 1. Abdominal pain secondary to worsening ascites. Interventional radiology for therapeutic paracentesis. Continue lactulose 20 mg 4 times daily, Zenpep 3 times daily, Xifaxan 550 mg twice daily, Aldactone 50 mg twice daily, Lasix 40 mg twice daily. 2. History of alcoholic liver disease with portal hypertension and previous episodes of acute GI bleed with acute blood loss anemia resulting in multiple hospitalizations for GI bleeding from esophageal varices status post banding. Continue Protonix 40 mg daily and Carafate. 3. Chronic pancytopenia secondary to chronic EtOH related bone marrow damage and portal hypertension causing splenic sequestration. Transfuse 1 unit of platelets prior to paracentesis. 4. Spinal stenosis with peripheral neuropathy. 5. Tobacco use and dependence. Patient quit. 6. Hypothyroidism. Continue levothyroxine 25 g daily. 7. Recurrent depression. Patient was unable to tolerate Zoloft. 8. Peripheral neuropathy secondary to alcoholism and spinal stenosis. 9. Gastroesophageal reflux disease and GI prophylaxis. Continue Protonix and Carafate. 10. DVT prophylaxis. No heparin due to thrombocytopenia. SCDs and ANDREEA hose and early ambulation. Patient placed as an observation status. Discharge plan: Home. Discharge home after paracentesis. Impression and plan of care have been directed as dictated by the signing physician. Giovana Kathleen nurse practitioner acting as scribe for signing physician.
[2019-05-30 15:36] LABS: Appearance,Urine Clear (Clear); Bilirubin,Urine 1+ (Negative); Blood,Urine Negative (Negative); Color,Urine Dark Brown; Glucose,Urine (UA) Negative (Negative); Ketones,Urine Trace (Negative); Leukocyte Esterase,Urine Negative (Negative); Mucus,Urine Moderate /hpf; Nitrite,Urine Negative (Negative); Protein,Urine 1+ (Negative); RBC,Urine 1 /hpf (0-5); Specific Gravity,Urine 1.043 (1.001-1.035); WBC,Urine 1 /hpf (0-5)
[2019-05-30] MEDS: LACTULOSE 20 GM/30 ML CUP PO SCH ×2 (17:06→22:56)
[2019-05-30] MEDS: HYDROmorphone 0.5 MG/0.5 ML SYRINGE IVP PRN ×3 (17:06→22:56)
[2019-05-30] MEDS: FUROSEMIDE 40 MG TAB PO SCH (17:07)
[2019-05-30] MEDS: LIPASE 5,000/PROTEASE 17,000/AMYLASE 24,000 PO SCH (17:07)
[2019-05-30] MEDS: THIAMINE 100 MG TAB PO SCH (17:07)
[2019-05-30] MEDS: SUCRALFATE 1 GM TAB PO SCH ×2 (17:07→20:19)
[2019-05-30] MEDS: MAGNESIUM OXIDE 400 MG TAB PO SCH ×2 (17:07→22:56)
[2019-05-30] MEDS: MIDODRINE 5 MG TAB PO SCH (17:07)
[2019-05-30] MEDS: METOPROLOL TARTRATE 25 MG TAB PO SCH (20:19)
[2019-05-30] MEDS: SPIRONOLACTONE 25 MG TAB PO SCH (20:19)
[2019-05-30] MEDS: RIFAXIMIN 550 MG TABLET PO SCH (20:20)
[2019-05-30] MEDS ORDERED: PANTOPRAZOLE SODIUM 20 MG PO SCH (21:00)
[2019-05-31] MEDS: HYDROmorphone 0.5 MG/0.5 ML SYRINGE IVP PRN ×8 (02:00→23:47)
[2019-05-31] MEDS: LEVOTHYROXINE 25 MCG TAB PO SCH (05:01)
[2019-05-31 06:09] LABS: Anisocytosis Slight; HCT 32.6 % (39.0-53.0); HGB 10.6 gm/dL (13.0-17.5); MCH 32.8 pg (25.0-35.0); MCHC 32.5 g/dL (31.0-37.0); MCV 101.1 fL (80.0-100.0); Macrocytosis Moderate; Mean Platelet Volume 8.4; Platelet Count 39 k/uL (150-450); RBC 3.23 m/uL (4.30-5.90); RDW 19.2 % (11.5-15.5); WBC 1.9 k/uL (3.8-10.6)
[2019-05-31 06:11] LABS: INR 1.4 (<1.2); Prothrombin Time 13.7 sec (9.0-12.0)
[2019-05-31] MEDS: PANTOPRAZOLE 40 MG/10 ML VIAL IV SCH (08:13)
[2019-05-31] MEDS: LACTULOSE 20 GM/30 ML CUP PO SCH ×4 (08:16→21:16)
[2019-05-31] MEDS: SUCRALFATE 1 GM TAB PO SCH ×4 (08:17→20:09)
[2019-05-31] MEDS: FUROSEMIDE 40 MG TAB PO SCH ×2 (08:17→17:43)
[2019-05-31] MEDS: MAGNESIUM OXIDE 400 MG TAB PO SCH ×3 (08:17→21:17)
[2019-05-31] MEDS: SPIRONOLACTONE 25 MG TAB PO SCH ×2 (08:17→20:09)
[2019-05-31] MEDS: THIAMINE 100 MG TAB PO SCH ×2 (08:17→17:43)
[2019-05-31] MEDS: METOPROLOL TARTRATE 25 MG TAB PO SCH ×2 (08:28→20:10)
[2019-05-31] MEDS: LIPASE 5,000/PROTEASE 17,000/AMYLASE 24,000 PO SCH ×3 (08:29→17:43)
[2019-05-31] MEDS: MIDODRINE 5 MG TAB PO SCH ×3 (08:29→17:44)
[2019-05-31] MEDS: RIFAXIMIN 550 MG TABLET PO SCH ×2 (08:29→21:13)
[2019-05-31] MEDS ORDERED: NON FORMULARY DRUG (Vitamin B Complex [Vitamin B Complex] 1 CAP) PO SCH (09:00)
[2019-05-31 10:33] VITALS: BMI 19.2
[2019-05-31] MEDS: SODIUM CHLORIDE 0.9% 1,000 ML IV SCH (14:13)
--- NOTE | 2019-05-31 14:31 | P.DS ---
Providers Date of admission: 05/30/19 13:43 Expected date of discharge: 06/01/19 Attending physician: Alfreda Godfrey Primary care physician: [facility] Course: This is a 43-year-old male patient of Dr. Sarmad Linn. He has history of alcohol liver cirrhosis with portal hypertension and previous GI bleeding, hypertension and gastritis, pancreatitis, spinal stenosis and peripheral neuropathy. Patient also has chronic back pain and was under the care of Dr. Lagunas but violated pain contract and no longer seen by pain management. He is also known to Dr. Ghazal Leiva from previous EGDs in the past finding gastritis consistent with portal gastropathy but no gastric or esophageal varices or active bleeding. He has had multipe admissions for acute GI bleed in Jan 2016, Mar 2016 and Mar 2017. He had admission for right leg abscess requiring I&D in December 2017. He has been admitted March for abdominal pain secondary to acute pancreatitis and worsening ascites. He underwent therapeutic paracentesis on April 04 with removal of 4.8 L of fluid. He was admitted again April 20 for ascites and abdominal pain and underwent a therapeutic paracentesis with removal of 2.5 L of serous fluid. He was then admitted May 10 underwent therapeutic paracentesis with removal of 6.4 L of serous fluid and again on May 22 5.5 L of serous fluid was removed. Patient came back in the emergency center on May 25 for ascites and was discharged home. Patient states he has follow-up with Deb SCOTT in the office with Dr. Leiva and was placed on 2 new medications but he has not picked up the prescriptions. He presents today complaining of abdominal distention, ascites and abdominal pain. Patient was found to be afebrile, heart rate 79, blood pressure 120/85 pulse ox 100% on room air. WBC 2.4, hemoglobin 11.5, platelet count 47, INR 1.4, CO2 21, BUN 22, creatinine 0.96, blood sugar 162, total bilirubin 1.9, liver function tests otherwise normal, albumin 3.2, lipase 417, amylase 113. ER attempted to have platelet transfusion and interventional radiology perform therapeutic paracentesis by interventional radiology was on able to do this. [facility] currently waiting for a bed in the emergency center. Consult in place with interventional radiology for paracentesis to be done tomorrow. One unit of platelets ordered to transfuse in the morning. 05/30: Patient continues to have abdominal pain with ascites. He is scheduled for transfusion of one unit of platelets and then undergo paracentesis today. Patient is afebrile, heart rate 79, blood pressure 112/76, pulse ox 96% on room air. Repeat lab work reveals INR 1.4, platelet count 39, WBC 1.9 and hemoglobin 10.6. 05/31: Yesterday, patient underwent successful paracentesis with removal of 3.6 L of straw-colored fluid. Patient had no postop complications. Patient continued to have significant pain overnight and was receiving Dilaudid. Patient is afebrile, heart rate 67, blood pressure 107/73, pulse ox 96% on room air. Patient is tolerating diet. Abdomen is less distended. Patient will be discharged home today in stable condition. Patient is requesting pain medication and a prescription for 3 day course of tramadol will be provided. Opioid start talking form has been completed. Discharge diagnoses: 1. Abdominal pain secondary to worsening ascites. 2. History of alcoholic liver disease with portal hypertension and previous episodes of acute GI bleed with acute blood loss anemia resulting in multiple hospitalizations for GI bleeding from esophageal varices status post banding. 3. Chronic pancytopenia secondary to chronic EtOH related bone marrow damage and portal hypertension causing splenic sequestration. 4. Spinal stenosis with peripheral neuropathy. 5. Tobacco use and dependence. 6. Hypothyroidism. 7. Recurrent depression. 8. Peripheral neuropathy secondary to alcoholism and spinal stenosis. 9. Gastroesophageal reflux disease. Discharge plan: Home. Discharge home after paracentesis. Impression and plan of care have been directed as dictated by the signing physician. Giovana Kathleen nurse practitioner acting as scribe for signing physician. Patient Condition at Discharge: Good Plan - Discharge Summary Discharge Rx Participant: No New Discharge Prescriptions: New traMADol HCL [Ultram] 50 mg PO Q6HR PRN 3 Days #12 tab PRN Reason: Pain No Action Levothyroxine Sodium [Synthroid] 25 mcg PO DAILY Pantoprazole Sodium [Protonix] 20 mg PO BID Rifaximin [Xifaxan] 550 mg PO BID Sucralfate [Carafate] 1 gm PO ACHS Magnesium Oxide [Mag-Ox] 200 mg PO TID tab Thiamine [Vitamin B-1] 100 mg PO BID-W/MEALS tab Vitamin B Complex 1 cap PO DAILY Multivitamins, Thera [Multivitamin (formulary)] 1 tab PO DAILY Lipase/Protease/Amylase [Robert Blunt 5,000 Unit Capsule] 5,000 unit PO AC-TID Lactulose [Constulose] 20 gm PO QID Metoprolol Tartrate [Lopressor] 25 mg PO BID Furosemide [Lasix] 40 mg PO BID@0900,1600 #60 tab Spironolactone [Aldactone] 50 mg PO BID #120 tab Midodrine [ProAmatine] 5 mg PO TID@0900,1300,1800 #90 tab Discharge Medication List Levothyroxine Sodium [Synthroid] 25 mcg PO DAILY 05/07/16 [History] Pantoprazole Sodium [Protonix] 20 mg PO BID 01/02/17 [History] Rifaximin [Xifaxan] 550 mg PO BID 08/02/18 [History] Sucralfate [Carafate] 1 gm PO ACHS 09/22/18 [History] Magnesium Oxide [Mag-Ox] 200 mg PO TID tab 09/24/18 [Rx] Thiamine [Vitamin B-1] 100 mg PO BID-W/MEALS tab 09/24/18 [Rx] Lipase/Protease/Amylase [Robert Blunt 5,000 Unit Capsule] 5,000 unit PO AC-TID 10/18/18 [History] Multivitamins, Thera [Multivitamin (formulary)] 1 tab PO DAILY 10/18/18 [History] Vitamin B Complex 1 cap PO DAILY 10/18/18 [History] Lactulose [Constulose] 20 gm PO QID 03/11/19 [History] Metoprolol Tartrate [Lopressor] 25 mg PO BID 03/11/19 [History] Furosemide [Lasix] 40 mg PO BID@0900,1600 #60 tab 04/04/19 [Rx] Midodrine [ProAmatine] 5 mg PO TID@0900,1300,1800 #90 tab 05/23/19 [Rx] Spironolactone [Aldactone] 50 mg PO BID #120 tab 05/23/19 [Rx] traMADol HCL [Ultram] 50 mg PO Q6HR PRN 3 Days #12 tab 06/01/19 [Rx] Follow up Appointment(s)/Referral(s): Macy Leiva MD [STAFF PHYSICIAN] - 06/16/19 9:00 am Pablo Linn MD [Primary Care Provider] - 1-2 Days (Office closed at time of discharge please call June 01 to make a follow up appointment) Patient Instructions/Handouts: Tramadol (By mouth), Ascites (DC), Paracentesis (DC) Discharge Disposition: HOME SELF-CARE
[2019-06-01] MEDS: HYDROmorphone 0.5 MG/0.5 ML SYRINGE IVP PRN ×3 (02:58→09:24)
[2019-06-01] MEDS: LEVOTHYROXINE 25 MCG TAB PO SCH (04:52)
[2019-06-01 04:53] VITALS: BP 107/73; PULSE 67; RESP 18; TEMP 98.1
--- NOTE | 2019-06-01 08:17 | US ---
Ultrasound-guided paracentesis. DATE OF EXAM: 05/31/2019 CLINICAL HISTORY: Ascites The procedure was discussed with the patient. The risks, complications, benefits, and alternatives we re discussed and any questions were answered. Informed consent was obtained. The patient was placed s upine on the ultrasound table and prepped and draped in the usual sterile fashion. All elements of maximal barrier technique were utilized. Under ultrasound guidance, access into the right lower quadrant was obtained, via the paracentesis catheter system and direct ultrasound guidanc e. Approximately 3.6 liters of straw-colored fluid was removed. The patient was stable throughout the pr ocedure and remained stable upon discharge from Department of Radiology. IMPRESSION: Successful paracentesis under ultrasound guidance.
[2019-06-01] MEDS: MIDODRINE 5 MG TAB PO SCH (09:23)
[2019-06-01] MEDS: LIPASE 5,000/PROTEASE 17,000/AMYLASE 24,000 PO SCH (09:27)
[2019-06-01] MEDS: LACTULOSE 20 GM/30 ML CUP PO SCH (09:28)
[2019-06-01] MEDS: FUROSEMIDE 40 MG TAB PO SCH (09:28)
[2019-06-01] MEDS: PANTOPRAZOLE 40 MG/10 ML VIAL IV SCH (09:28)
[2019-06-01] MEDS: THIAMINE 100 MG TAB PO SCH (09:28)
[2019-06-01] MEDS: MAGNESIUM OXIDE 400 MG TAB PO SCH (09:28)
[2019-06-01] MEDS: RIFAXIMIN 550 MG TABLET PO SCH (09:28)
[2019-06-01] MEDS: SPIRONOLACTONE 25 MG TAB PO SCH (09:28)
[2019-06-01] MEDS: METOPROLOL TARTRATE 25 MG TAB PO SCH (09:28)
[2019-06-01] MEDS: SUCRALFATE 1 GM TAB PO SCH (09:28)
--- NOTE | 2019-06-01 13:31 | P.PN ---
Subjective Progress Note Date: 06/01/19 This is a 43-year-old male patient of Dr. Sarmad Linn. He has history of alcohol liver cirrhosis with portal hypertension and previous GI bleeding, hypertension and gastritis, pancreatitis, spinal stenosis and peripheral neuropathy. Patient also has chronic back pain and was under the care of Dr. Lagunas but violated pain contract and no longer seen by pain management. He is also known to Dr. Ghazal Leiva from previous EGDs in the past finding gastritis consistent with portal gastropathy but no gastric or esophageal varices or active bleeding. He has had multipe admissions for acute GI bleed in Jan 2016, Mar 2016 and Mar 2017. He had admission for right leg abscess requiring I&D in December 2017. He has been admitted March for abdominal pain secondary to acute pancreatitis and worsening ascites. He underwent therapeutic paracentesis on April 04 with removal of 4.8 L of fluid. He was admitted again April 20 for ascites and abdominal pain and underwent a therapeutic paracentesis with removal of 2.5 L of serous fluid. He was then admitted May 10 underwent therapeutic paracentesis with removal of 6.4 L of serous fluid and again on May 22 5.5 L of serous fluid was removed. Patient came back in the emergency center on May 25 for ascites and was discharged home. Patient states he has follow-up with Deb SCOTT in the office with Dr. Leiva and was placed on 2 new medications but he has not picked up the prescriptions. He presents today complaining of abdominal distention, ascites and abdominal pain. Patient was found to be afebrile, heart rate 79, blood pressure 120/85 pulse ox 100% on room air. WBC 2.4, hemoglobin 11.5, platelet count 47, INR 1.4, CO2 21, BUN 22, creatinine 0.96, blood sugar 162, total bilirubin 1.9, liver function tests otherwise normal, albumin 3.2, lipase 417, amylase 113. ER attempted to have platelet transfusion and interventional radiology perform therapeutic paracentesis by interventional radiology was on able to do this. Patient will be placed on the [facility] floor, currently waiting for a bed in the emergency center. Consult in place with interventional radiology for paracentesis to be done tomorrow. One unit of platelets ordered to transfuse in the morning. 05/30: Patient continues to have abdominal pain with ascites. He is scheduled for transfusion of one unit of platelets and then undergo paracentesis today. Patient is afebrile, heart rate 79, blood pressure 112/76, pulse ox 96% on room air. Repeat lab work reveals INR 1.4, platelet count 39, WBC 1.9 and hemoglobin 10.6. Objective - Vital Signs Vital signs: Vital Signs Temp 98.1 F 06/01/19 04:52 Pulse 67 06/01/19 04:52 Resp 18 06/01/19 04:52 BP 107/73 06/01/19 04:52 Pulse Ox 96 06/01/19 04:52 Intake & Output 05/31/19 06/01/19 06/01/19 18:59 06:59 18:59 Intake Total 622 590 Output Total 3600 Balance -2978 590 Weight 58.967 kg Intake: Oral 590 Blood Product 622 Platelet Irr Pheresis 2 311 Acda Unit [id number] Output: Gastric Drainage 3600 Other: # Voids 8 3 - Exam Review of Systems Constitutional: Reports poor appetite, Denies anorexia, Denies chills, Denies fever, Denies lethargy, Denies malaise Ears, nose, mouth and throat: Denies dysphagia, Denies headache, Denies nasal c ongestion, Denies nasal discharge, Denies sore throat, Denies vertigo Cardiovascular: Denies chest pain, Denies lightheadedness, Denies shortness of breath, Denies syncope Respiratory: Denies cough, Denies cough with sputum, Denies dyspnea, Denies ex cessive sputum, Denies hemoptysis, Denies home oxygen, Denies respiratory infections, Denies sleep apnea, Denies wheezing Gastrointestinal: Reports abdominal pain, Reports bloating, Reports loss of appetite, Reports nausea, Denies diarrhea, Denies vomiting Genitourinary: Denies dysuria, Denies urinary retention Musculoskeletal: Denies frequent falls, Denies gait dysfunction, Denies muscle weakness, Denies myalgias Integumentary: Denies pruritus, Denies rash, Denies wounds Neurological: Denies change in mentation, Denies change in speech, Denies numbness, Denies weakness Psychiatric: Denies anxiety, Denies depression Endocrine: Denies fatigue, Denies weight change Physical examination Gen: This is a 43-year-old male. Patient is resting in bed and appears uncomfortable due to pain with no acute respiratory distress. HEENT: Head is atraumatic, normocephalic. Pupils equal, round. Sclerae is anicteric. NECK: Supple. No JVD. No lymphadenopathy. No thyromegaly. LUNGS: Clear to auscultation. No wheezes or rhonchi. No intercostal retractions. HEART: Regular rate and rhythm. No murmur. ABDOMEN: Significant abdominal distention with diffuse ascites. Bowel sounds are present. No masses. Generalized tenderness. EXTREMITIES: No pedal edema. No calf tenderness. Dorsalis pedis +2 bilaterally. NEUROLOGICAL: Patient is awake, alert and oriented x3. Cranial nerves 2 through 12 are grossly intact. - Labs CBC & Chem 7: 05/31/19 05:34 05/30/19 10:15 Assessment and Plan Plan: 1. Abdominal pain secondary to worsening ascites. Interventional radiology for therapeutic paracentesis. Continue lactulose 20 mg 4 times daily, Zenpep 3 times daily, Xifaxan 550 mg twice daily, Aldactone 50 mg twice daily, Lasix 40 mg twice daily. 2. History of alcoholic liver disease with portal hypertension and previous episodes of acute GI bleed with acute blood loss anemia resulting in multiple hospitalizations for GI bleeding from esophageal varices status post banding. Continue Protonix 40 mg daily and Carafate. 3. Chronic pancytopenia secondary to chronic EtOH related bone marrow damage and portal hypertension causing splenic sequestration. Transfuse 1 unit of platelets prior to paracentesis. 4. Spinal stenosis with peripheral neuropathy. 5. Tobacco use and dependence. Patient quit. 6. Hypothyroidism. Continue levothyroxine 25 g daily. 7. Recurrent depression. Patient was unable to tolerate Zoloft. 8. Peripheral neuropathy secondary to alcoholism and spinal stenosis. 9. Gastroesophageal reflux disease and GI prophylaxis. Continue Protonix and Carafate. 10. DVT prophylaxis. No heparin due to thrombocytopenia. SCDs and ANDREEA hose and early ambulation. Discharge plan: Home. Discharge home after paracentesis. Impression and plan of care have been directed as dictated by the signing physician. Giovana Kathleen nurse practitioner acting as scribe for signing physician.
== END 2019-06-01 10:53 | disposition home or self-care (01) ==
LOC: EC 10:10 → 5NMEDONC 13:43
PROVIDERS: ADMIT Internal Medicine; ATTEND Internal Medicine
DX: K70.31 Alcoholic cirrhosis of liver with ascites (principal); K76.6 Portal hypertension; Z87.19 Personal history of other diseases of the digestive system; D61.818 Other pancytopenia; M48.00 Spinal stenosis, site unspecified; E03.9 Hypothyroidism, unspecified; F33.9 Major depressive disorder, recurrent, unspecified; F10.20 Alcohol dependence, uncomplicated; K21.9 Gastro-esophageal reflux disease without esophagitis; G89.29 Other chronic pain; K70.9 Alcoholic liver disease, unspecified; G62.1 Alcoholic polyneuropathy; K86.1 Other chronic pancreatitis; T50.916A Underdosing of multiple unspecified drugs, medicaments and biological substances, initial encounter; Z91.128 Patient's intentional underdosing of medication regimen for other reason; Z79.899 Other long term (current) drug therapy; Z79.890 Hormone replacement therapy; Z79.2 Long term (current) use of antibiotics; Z87.09 Personal history of other diseases of the respiratory system; F17.210 Nicotine dependence, cigarettes, uncomplicated; Z81.1 Family history of alcohol abuse and dependence
CPT/HCPCS: 36430; 96376 ×4; 96374; 96375; 99284; 36415; 86900; 86901; 80053; 82150; 83690; 85025; 85027; 85610 ×2; 85730; 86850; 81001; 49083; G0378 ×3; P9035; J2405; J1170 ×4; C9113 ×2; 82565; 85049

== ENCOUNTER 2019-06-05 23:40 | Emergency (ER) | payer MEDICARE ==
[2019-06-05 23:51] VITALS: TEMP 98.3
[2019-06-06] MEDS ORDERED: MORPHINE SULFATE 4 MG/ML SYRINGE IV STA ×2 (00:13→01:38)
[2019-06-06 00:25] VITALS: BP 119/91; PULSE 107; RESP 18
[2019-06-06 00:38] LABS: Anisocytosis Slight; Basophils % (A) 0 %; Eosinophils # (A) 0.1 k/uL (0-0.7); Eosinophils % (A) 1 %; HCT 36.7 % (39.0-53.0); HGB 12.1 gm/dL (13.0-17.5); Lymphocytes # (A) 0.5 k/uL (1.0-4.8); Lymphocytes % (A) 9 %; MCH 31.6 pg (25.0-35.0); Macrocytosis Slight; Mean Platelet Volume 7.7; Monocytes # (A) 0.5 k/uL (0-1.0); Monocytes % (A) 8 %; Neutrophils # (A) 4.6 k/uL (1.3-7.7); Neutrophils % (A) 80 %; RBC 3.83 m/uL (4.30-5.90); RDW 17.9 % (11.5-15.5); WBC 5.8 k/uL (3.8-10.6)
[2019-06-06 00:39] LABS: Appearance,Urine Clear (Clear); Bilirubin,Urine Negative (Negative); Blood,Urine Negative (Negative); Color,Urine Dark Yellow; Glucose,Urine (UA) Negative (Negative); Ketones,Urine Trace (Negative); Leukocyte Esterase,Urine Negative (Negative); Nitrite,Urine Negative (Negative); PH, Urine 5.5 (5.0-8.0); Protein,Urine Negative (Negative); Specific Gravity,Urine 1.018 (1.001-1.035)
[2019-06-06 00:44] LABS: MCV 95.8 fL (80.0-100.0)
[2019-06-06 01:01] LABS: ALT 13 U/L (4-49); AST 31 U/L (17-59); African American GFR (CKD) >90 (>60 ml/min/1.73 sqM); Albumin 3.4 g/dL (3.5-5.0); Alcohol <10 mg/dL; Alkaline Phosphatase 59 U/L (38-126); Amylase 51 U/L (30-110); Anion Gap 10 mmol/L; Blood Urea Nitrogen 17 mg/dL (9-20); Calcium 8.7 mg/dL (8.4-10.2); Carbon Dioxide 22 mmol/L (22-30); Chloride 103 mmol/L (98-107); Glucose 201 mg/dL (74-99); Non-African American GFR(CKD) >90 (>60 ml/min/1.73 sqM); Potassium 3.8 mmol/L (3.5-5.1); Sodium 135 mmol/L (137-145); Total Bilirubin 3.8 mg/dL (0.2-1.3); Total Protein 6.8 g/dL (6.3-8.2)
[2019-06-06 01:07] LABS: Anisocytosis (M) Present; Ovalocytes Present; Platelet Count 62 k/uL (150-450)
[2019-06-06] MEDS ORDERED: FUROSEMIDE 10 MG/ML 4 ML VIAL IV STA (01:14)
--- NOTE | 2019-06-06 01:26 | ED ---
Abdominal Pain HPI - General Chief Complaint: Abdominal Pain Stated Complaint: Abdominal Pain Time Seen by Provider: 06/06/19 00:02 Source: patient Mode of arrival: wheelchair Limitations: no limitations - History of Present Illness Initial Comments: This patient is a 43-year-old man with history of cirrhosis who has been requiring paracentesis to deal with ascites, presents with complaint that he feels his abdomen is becoming full again. He is having diffuse pressure and aching pain. The patient denies fever or chills. No vomiting or change in b owel movements. No change in urination. Patient states that he believes that perhaps not enough fluid was taken off at the last paracentesis. The patient is not having any chest symptoms. No dyspnea or limitation of his breathing. The patient states he is mainly seeing if he is able to have some pain relief until he can have the fluid drained probably tomorrow. MD Complaint: abdominal pain -: days(s) Location: diffuse Radiation: none Migration to: no migration Severity: moderate Quality: aching Consistency: constant Improves With: nothing Worsens With: nothing Associated Symptoms: denies other symptoms - Related Data Home Medications Medication Instructions Recorded Confirmed Levothyroxine Sodium [Synthroid] 25 mcg PO DAILY 05/07/16 05/30/19 Pantoprazole Sodium [Protonix] 20 mg PO BID 01/02/17 05/30/19 Rifaximin [Xifaxan] 550 mg PO BID 08/02/18 05/30/19 Sucralfate [Carafate] 1 gm PO ACHS 09/22/18 05/30/19 Lipase/Protease/Amylase [Zenpep Dr 5,000 unit PO AC-TID 10/18/18 05/30/19 5,000 Unit Capsule] Multivitamins, Thera [Multivitamin 1 tab PO DAILY 10/18/18 05/30/19 (formulary)] Vitamin B Complex 1 cap PO DAILY 10/18/18 05/30/19 Lactulose [Constulose] 20 gm PO QID 03/11/19 05/30/19 Metoprolol Tartrate [Lopressor] 25 mg PO BID 03/11/19 05/30/19 Previous Rx's Medication Instructions Recorded Magnesium Oxide [Mag-Ox] 200 mg PO TID tab 09/24/18 Thiamine [Vitamin B-1] 100 mg PO BID-W/MEALS tab 09/24/18 Furosemide [Lasix] 40 mg PO BID@0900,1600 #60 tab 04/04/19 Midodrine [ProAmatine] 5 mg PO TID@0900,1300,1800 #90 tab 05/23/19 Spironolactone [Aldactone] 50 mg PO BID #120 tab 05/23/19 traMADol HCL [Ultram] 50 mg PO Q6HR PRN 3 Days #12 tab 06/01/19 Allergies Allergy/AdvReac Type Severity Reaction Status Date / Time No Known Allergies Allergy Verified 06/05/19 23:51 Review of Systems ROS Statement: Those systems with pertinent positive or pertinent negative responses have been documented in the HPI. ROS Other: All systems not noted in ROS Statement are negative. Constitutional: Denies: fever, chills, weakness Respiratory: Denies: cough, dyspnea Cardiovascular: Denies: chest pain, edema, syncope Gastrointestinal: Reports: as per HPI, abdominal pain. Denies: nausea, vomiting, diarrhea, constipation Genitourinary: Denies: dysuria, hematuria Musculoskeletal: Denies: back pain Skin: Denies: rash Neurological: Denies: headache Past Medical History Past Medical History: GERD/Reflux, GI Bleed, Hypertension, Liver Disease, Thyroid Disorder Additional Past Medical History / Comment(s): Liver cirrhosis, portal htn, ETOH abuse, esophageal varicies, upper GI bleed, chronic thrombocytopenia, coagulopathy, pancytopenia, ascities, spinal stenosis: back/leg and feet pain, DDD, chronic back pain, neuropathy bilateral legs/feet, falls, bronchitis, 2010 [facility] [place], chronic pancreatitis History of Any Multi-Drug Resistant Organisms: None Reported Past Surgical History: Appendectomy, Joint Replacement Additional Past Surgical History / Comment(s): EGDs paracentesis, back injections, R thumb reattachment, circumcism. Past Anesthesia/Blood Transfusion Reactions: No Reported Reaction Additional Past Anesthesia/Blood Transfusion Reaction / Comment(s): Pt has received blood without reaction. Past Psychological History: No Psychological Hx Reported, Depression Smoking Status: Current some day smoker Past Alcohol Use History: None Reported, Abuse Past Drug Use History: None Reported - Past Family History Father Family Medical History: Unable to Obtain Additional Family Medical History / Comment(s): Pt does not know his father's medical hx. Mother Family Medical History: No Reported History Additional Family Medical History / Comment(s): Mother is healthy. Brother(s) Additional Family Medical History / Comment(s): Patient has 3 brothers and one suffers from alcohol abuse. 2 brothers have no major medical problems. Patient does not have any sisters. Patient is one daughter 12 years old with no major medical problems. General Exam Limitations: no limitations General appearance: alert, in no apparent distress Head exam: Present: atraumatic, normocephalic Eye exam: Present: normal appearance. Absent: scleral icterus, conjunctival injection ENT exam: Present: normal oropharynx Respiratory exam: Present: normal lung sounds bilaterally. Absent: respiratory distress, wheezes, rales, rhonchi, stridor Cardiovascular Exam: Present: regular rate, normal rhythm, normal heart sounds. Absent: systolic murmur, diastolic murmur, rubs, gallop GI/Abdominal exam: Present: soft, other (Patient has moderately large amount of ascites. On the abdominal exam there is no tenseness in the abdomen. No sign of a developing compartment syndrome.). Absent: distended, tenderness, guarding, rebound, rigid, mass, pulsatile mass Extremities exam: Present: normal inspection, normal capillary refill. Absent: pedal edema, calf tenderness Back exam: Present: normal inspection. Absent: CVA tenderness (R), CVA tenderness (L) Neurological exam: Present: alert Skin exam: Present: warm, dry, intact, normal color. Absent: rash Course Vital Signs 06/05/19 06/06/19 23:45 00:24 Temperature 98.3 F Pulse Rate 105 H 107 H Respiratory 22 18 Rate Blood Pressure 126/85 119/91 O2 Sat by Pulse 98 100 Oximetry Medical Decision Making - Medical Decision Making Patient is a 43-year-old man with cirrhosis presenting with complaint that he believes his abdomen is filling up, requiring paracentesis. He states that previously there were concerns about his platelet levels as well. Given this patient does have labs drawn. On the exam and from the labs there is no suggestion of any peritonitis. Nor does there appear to be any developing compartment syndrome. There are good distal pulses. The abdomen is not tense. The patient's labs do look good including his platelet count which shows he should be suitable to have ultrasound-guided paracentesis first thing in the morning through interventional. We discussed the appropriate further care and follow-up as well as return parameters. - Lab Data Result diagrams: 06/06/19 00:20 06/06/19 00:20 Lab Results 06/06/19 06/06/19 06/06/19 Range/Units 00:05 00:20 00:20 WBC 5.8 (3.8-10.6) k/uL RBC 3.83 L (4.30-5.90) m/uL Hgb 12.1 L (13.0-17.5) gm/dL Hct 36.7 L (39.0-53.0) % MCV 95.8 D (80.0-100.0) fL MCH 31.6 (25.0-35.0) pg MCHC 33.0 (31.0-37.0) g/dL RDW 17.9 H (11.5-15.5) % Plt Count 62 L D (150-450) k/uL Neutrophils % 80 % Lymphocytes % 9 % Monocytes % 8 % Eosinophils % 1 % Basophils % 0 % Neutrophils # 4.6 (1.3-7.7) k/uL Lymphocytes # 0.5 L (1.0-4.8) k/uL Monocytes # 0.5 (0-1.0) k/uL Eosinophils # 0.1 (0-0.7) k/uL Basophils # 0.0 (0-0.2) k/uL Manual Slide Review Performed Anisocytosis Slight Anisocytosis (manual) Present Macrocytosis Slight Ovalocytes Present Sodium 135 L (137-145) mmol/L Potassium 3.8 (3.5-5.1) mmol/L Chloride 103 (98-107) mmol/L Carbon Dioxide 22 (22-30) mmol/L Anion Gap 10 mmol/L BUN 17 (9-20) mg/dL Creatinine 0.96 (0.66-1.25) mg/dL Est GFR (CKD-EPI)AfAm >90 (>60 ml/min/1.73 sqM) Est GFR (CKD-EPI)NonAf >90 (>60 ml/min/1.73 sqM) Glucose 201 H (74-99) mg/dL Calcium 8.7 (8.4-10.2) mg/dL Total Bilirubin 3.8 H (0.2-1.3) mg/dL AST 31 (17-59) U/L ALT 13 (4-49) U/L Alkaline Phosphatase 59 (38-126) U/L Ammonia (<30) umol/L Total Protein 6.8 (6.3-8.2) g/dL Albumin 3.4 L (3.5-5.0) g/dL Amylase 51 (30-110) U/L Lipase 138 (23-300) U/L Urine Color Dark Yellow Urine Appearance Clear (Clear) Urine pH 5.5 (5.0-8.0) Ur Specific [place] 1.018 (1.001-1.035) Urine Protein Negative (Negative) Urine Glucose (UA) Negative (Negative) Urine Ketones Trace H (Negative) Urine Blood Negative (Negative) Urine Nitrite Negative (Negative) Urine Bilirubin Negative (Negative) Urine Urobilinogen 2.0 (<2.0) mg/dL Ur Leukocyte Esterase Negative (Negative) Serum Alcohol <10 mg/dL 06/06/19 Range/Units 00:20 WBC (3.8-10.6) k/uL RBC (4.30-5.90) m/uL Hgb (13.0-17.5) gm/dL Hct (39.0-53.0) % MCV (80.0-100.0) fL MCH (25.0-35.0) pg MCHC (31.0-37.0) g/dL RDW (11.5-15.5) % Plt Count (150-450) k/uL Neutrophils % % Lymphocytes % % Monocytes % % Eosinophils % % Basophils % % Neutrophils # (1.3-7.7) k/uL Lymphocytes # (1.0-4.8) k/uL Monocytes # (0-1.0) k/uL Eosinophils # (0-0.7) k/uL Basophils # (0-0.2) k/uL Manual Slide Review Anisocytosis Anisocytosis (manual) Macrocytosis Ovalocytes Sodium (137-145) mmol/L Potassium (3.5-5.1) mmol/L Chloride (98-107) mmol/L Carbon Dioxide (22-30) mmol/L Anion Gap mmol/L BUN (9-20) mg/dL Creatinine (0.66-1.25) mg/dL Est GFR (CKD-EPI)AfAm (>60 ml/min/1.73 sqM) Est GFR (CKD-EPI)NonAf (>60 ml/min/1.73 sqM) Glucose (74-99) mg/dL Calcium (8.4-10.2) mg/dL Total Bilirubin (0.2-1.3) mg/dL AST (17-59) U/L ALT (4-49) U/L Alkaline Phosphatase (38-126) U/L Ammonia 24 (<30) umol/L Total Protein (6.3-8.2) g/dL Albumin (3.5-5.0) g/dL Amylase (30-110) U/L Lipase (23-300) U/L Urine Color Urine Appearance (Clear) Urine pH (5.0-8.0) Ur Specific [place] (1.001-1.035) Urine Protein (Negative) Urine Glucose (UA) (Negative) Urine Ketones (Negative) Urine Blood (Negative) Urine Nitrite (Negative) Urine Bilirubin (Negative) Urine Urobilinogen (<2.0) mg/dL Ur Leukocyte Esterase (Negative) Serum Alcohol mg/dL Disposition Clinical Impression: Ascites Disposition: HOME SELF-CARE Condition: Good Instructions (If sedation given, give patient instructions): Cirrhosis (ED), Ascites (ED) Additional Instructions: As we discussed, follow-up in the morning with interventional to have the ultrasound guided paracentesis. If there is difficulty with the plan return to the emergency department. Is patient prescribed a controlled substance at d/c from ED?: No Referrals: Pablo Linn MD [Primary Care Provider] - 1-2 days Macy Leiva MD [STAFF PHYSICIAN] - 1-2 days
== END 2019-06-06 01:59 | disposition home or self-care (01) ==
LOC: EC 23:40
DX: R18.8 Other ascites (principal); K74.60 Unspecified cirrhosis of liver; R10.84 Generalized abdominal pain; K21.9 Gastro-esophageal reflux disease without esophagitis; I10 Essential (primary) hypertension; E07.9 Disorder of thyroid, unspecified; F17.200 Nicotine dependence, unspecified, uncomplicated; Z79.890 Hormone replacement therapy; Z79.899 Other long term (current) drug therapy; Z90.49 Acquired absence of other specified parts of digestive tract; Z53.8 Procedure and treatment not carried out for other reasons
CPT/HCPCS: 36415; 80053; 82140; 82150; 83690; 85025; 81003; 99284; 96374; 96376; G0480; J2270; 80320

== ENCOUNTER 2019-06-08 09:33 | Observation (INO) | payer MEDICARE ==
--- NOTE | 2019-06-08 10:09 | ED ---
Abdominal Pain HPI <Girish White - Last Filed: 06/08/19 12:02> - General Source: patient Mode of arrival: ambulatory Limitations: no limitations <Alma Delia Ghotra - Last Filed: 06/08/19 12:41> - General Chief Complaint: Abdominal Pain Stated Complaint: Abd pain Time Seen by Provider: 06/08/19 09:46 - History of Present Illness Initial Comments: 43yo male with history of cirrhosis of the liver presenting today for cc of abdominal distention pain x 5 days. Patient states about 1 week ago, last Mon y he had fluid drained from his abdomen secondary to ascites. Patient believes they did not take off enough fluid. He states she continues to have diffuse abdominal pain, and growing distention. Patient denies nausea, vomiting, diarrhea, confusion, tremor. Patient denies fevers or warmth of the abdomen. Patient states he feels like his lungs are restricted and cannot expand secondary to the fluid build up. Denies chest pain, leg swelling. Patient denies rectal bleeding, dark stool. Remaining ROS (-). upon arrival patient appears very distended, uncomfortable. (Alma Delia Ghotra) - Related Data Home Medications Medication Instructions Recorded Confirmed Levothyroxine Sodium [Synthroid] 25 mcg PO DAILY 05/07/16 06/08/19 Pantoprazole Sodium [Protonix] 20 mg PO BID 01/02/17 06/08/19 Rifaximin [Xifaxan] 550 mg PO BID 08/02/18 06/08/19 Sucralfate [Carafate] 1 gm PO ACHS 09/22/18 06/08/19 Lipase/Protease/Amylase [Zenpep Dr 5,000 unit PO AC-TID 10/18/18 06/08/19 5,000 Unit Capsule] Multivitamins, Thera [Multivitamin 1 tab PO DAILY 10/18/18 06/08/19 (formulary)] Vitamin B Complex 1 cap PO DAILY 10/18/18 06/08/19 Lactulose [Constulose] 20 gm PO QID 03/11/19 06/08/19 Metoprolol Tartrate [Lopressor] 25 mg PO BID 03/11/19 06/08/19 Previous Rx's Medication Instructions Recorded Magnesium Oxide [Mag-Ox] 200 mg PO TID tab 09/24/18 Thiamine [Vitamin B-1] 100 mg PO BID-W/MEALS tab 09/24/18 Furosemide [Lasix] 40 mg PO BID@0900,1600 #60 tab 04/04/19 Midodrine [ProAmatine] 5 mg PO TID@0900,1300,1800 #90 tab 05/23/19 Spironolactone [Aldactone] 50 mg PO BID #120 tab 05/23/19 traMADol HCL [Ultram] 50 mg PO Q6HR PRN 3 Days #12 tab 06/01/19 Allergies Allergy/AdvReac Type Severity Reaction Status Date / Time No Known Allergies Allergy Verified 06/08/19 11:21 Review of Systems ROS Other: All systems not noted in ROS Statement are negative. <Girish White - Last Filed: 06/08/19 12:02> ROS Other: All systems not noted in ROS Statement are negative. <Alma Delia Ghotra - Last Filed: 06/08/19 12:41> ROS Statement: Those systems with pertinent positive or pertinent negative responses have been documented in the HPI. Past Medical History Past Medical History: GERD/Reflux, GI Bleed, Hypertension, Liver Disease, Thyroid Disorder Additional Past Medical History / Comment(s): Liver cirrhosis, portal htn, ETOH abuse, esophageal varicies, upper GI bleed, chronic thrombocytopenia, coagulopathy, pancytopenia, ascities, spinal stenosis: back/leg and feet pain, DDD, chronic back pain, neuropathy bilateral legs/feet, falls, bronchitis, 2010 [facility] [place], chronic pancreatitis History of Any Multi-Drug Resistant Organisms: None Reported Past Surgical History: Appendectomy, Joint Replacement Additional Past Surgical History / Comment(s): EGDs paracentesis, back injectio ns, R thumb reattachment, circumcism. Past Anesthesia/Blood Transfusion Reactions: No Reported Reaction Additional Past Anesthesia/Blood Transfusion Reaction / Comment(s): Pt has received blood without reaction. Past Psychological History: No Psychological Hx Reported, Depression Smoking Status: Current some day smoker Past Alcohol Use History: None Reported, Abuse Past Drug Use History: None Reported - Past Family History Father Family Medical History: Unable to Obtain Additional Family Medical History / Comment(s): Pt does not know his father's medical hx. Mother Family Medical History: No Reported History Additional Family Medical History / Comment(s): Mother is healthy. Brother(s) Additional Family Medical History / Comment(s): Patient has 3 brothers and one suffers from alcohol abuse. 2 brothers have no major medical problems. Patient does not have any sisters. Patient is one daughter 12 years old with no major medical problems. <Alma Delia Ghotra - Last Filed: 06/08/19 12:41> General Exam Limitations: no limitations <Alma Delia Ghotra - Last Filed: 06/08/19 12:41> - General Exam Comments Initial Comments: General: The patient is awake and alert, in no distress Eye: +3 mm pupils are equal, round and reactive to light, extra-ocular movements are intact. No nystagmus. There is normal conjunctiva bilaterally. No signs of icterus. Ears, nose, mouth and throat: There are moist mucous membranes and no oral lesions. Neck: The neck is supple, there is no tenderness or JVD. Cardiovascular: There is a regular rate and rhythm. No murmur, rub or gallop is appreciated. Respiratory: Lungs are clear to auscultation, respirations are non-labored, breath sounds are equal. No wheezes, stridor, rales, or rhonchi. Gastrointestinal: Soft, significant abdominal distention, non-tender abdomen without masses or organomegaly noted. There is no rebound or guarding present. Musculoskeletal: Normal ROM, no tenderness. Strength 5/5. Sensation intact. Radial pulses equal bilaterally 2+. Neurological: A&O x 3. CN II-XII intact grossly, There are no obvious motor or sensory deficits. Coordination appears grossly intact. Speech is normal. Skin: Skin is warm and dry and no rashes or lesions are noted. Psychiatric: Cooperative, appropriate mood & affect, normal judgment. (Alma Delia Ghotra) Course <Girish White - Last Filed: 06/08/19 12:02> Vital Signs 06/08/19 06/08/19 06/08/19 09:38 11:11 12:22 Temperature 98 F Pulse Rate 98 77 79 Respiratory 18 18 18 Rate Blood Pressure 95/67 98/82 109/73 O2 Sat by Pulse 99 98 98 Oximetry - Reevaluation(s) Reevaluation #1: 06/08/19 12:02 PA supervision: I did evaluate this case patient does have ascites and does have tremors that opinion he will be admitted with platelet transfusion and interventional radiology performing procedure. I did discuss the case with Dr. Garcia. (Girish White) Medical Decision Making - Lab Data Result diagrams: 06/08/19 10:11 06/08/19 10:11 <Girish White - Last Filed: 06/08/19 12:02> - Lab Data Result diagrams: 06/08/19 10:11 06/08/19 10:11 <Alma Delia Ghotra - Last Filed: 06/08/19 12:41> - Medical Decision Making 43yo with cirrhosis presenting for worsenign distention that is causing SOB/significant pain. Spoke with IR nurse, Radiologist reviewed the US, he recommended paracentesis, however cannot perform due to platlets, the nurse contacted blood bank and they are unable to get platelets until 4PM. They want to do procedure tomorrow. Patient will be admitted for intractable pain, distention--IR recommended I order platelets but place note that they are not needed until tomorrow when procedure is going to be performed. Patient is agreeable to admission and care plan. Discussed case wtih Dr. White who is agreea ble to care plan and admission. (Alma Delia Ghotra) - Lab Data Lab Results 06/08/19 06/08/19 06/08/19 Range/Units 10:11 10:11 10:11 WBC 2.8 L (3.8-10.6) k/uL RBC 3.23 L (4.30-5.90) m/uL Hgb 10.7 L (13.0-17.5) gm/dL Hct 31.2 L (39.0-53.0) % MCV 96.4 (80.0-100.0) fL MCH 33.0 (25.0-35.0) pg MCHC 34.2 (31.0-37.0) g/dL RDW 17.9 H (11.5-15.5) % Plt Count 36 L (150-450) k/uL Neutrophils % 81 % Lymphocytes % 12 % Monocytes % 5 % Eosinophils % 1 % Basophils % 0 % Neutrophils # 2.2 (1.3-7.7) k/uL Lymphocytes # 0.3 L (1.0-4.8) k/uL Monocytes # 0.1 (0-1.0) k/uL Eosinophils # 0.0 (0-0.7) k/uL Basophils # 0.0 (0-0.2) k/uL Anisocytosis Slight Macrocytosis Slight PT (9.0-12.0) sec INR (<1.2) Sodium 136 L (137-145) mmol/L Potassium 3.5 (3.5-5.1) mmol/L Chloride 107 (98-107) mmol/L Carbon Dioxide 21 L (22-30) mmol/L Anion Gap 8 mmol/L BUN 22 H (9-20) mg/dL Creatinine 1.03 (0.66-1.25) mg/dL Est GFR (CKD-EPI)AfAm >90 (>60 ml/min/1.73 sqM) Est GFR (CKD-EPI)NonAf 89 (>60 ml/min/1.73 sqM) Glucose 242 H (74-99) mg/dL Calcium 7.8 L (8.4-10.2) mg/dL Total Bilirubin 2.5 H (0.2-1.3) mg/dL AST 24 (17-59) U/L ALT 11 (4-49) U/L Alkaline Phosphatase 46 (38-126) U/L Total Protein 5.8 L (6.3-8.2) g/dL Albumin 2.6 L (3.5-5.0) g/dL Amylase 84 (30-110) U/L Lipase 446 H (23-300) U/L Urine Color Cuming Urine Appearance Clear (Clear) Urine pH 6.0 (5.0-8.0) Ur Specific [place] 1.033 (1.001-1.035) Urine Protein 1+ H (Negative) Urine Glucose (UA) Negative (Negative) Urine Ketones Trace H (Negative) Urine Blood Negative (Negative) Urine Nitrite Negative (Negative) Urine Bilirubin Negative (Negative) Urine Urobilinogen 4.0 (<2.0) mg/dL Ur Leukocyte Esterase Negative (Negative) Urine RBC 1 (0-5) /hpf Urine WBC <1 (0-5) /hpf Urine Mucus Occasional H (None) /hpf 06/08/19 Range/Units 10:11 WBC (3.8-10.6) k/uL RBC (4.30-5.90) m/uL Hgb (13.0-17.5) gm/dL Hct (39.0-53.0) % MCV (80.0-100.0) fL MCH (25.0-35.0) pg MCHC (31.0-37.0) g/dL RDW (11.5-15.5) % Plt Count (150-450) k/uL Neutrophils % % Lymphocytes % % Monocytes % % Eosinophils % % Basophils % % Neutrophils # (1.3-7.7) k/uL Lymphocytes # (1.0-4.8) k/uL Monocytes # (0-1.0) k/uL Eosinophils # (0-0.7) k/uL Basophils # (0-0.2) k/uL Anisocytosis Macrocytosis PT 14.5 H (9.0-12.0) sec INR 1.5 H (<1.2) Sodium (137-145) mmol/L Potassium (3.5-5.1) mmol/L Chloride (98-107) mmol/L Carbon Dioxide (22-30) mmol/L Anion Gap mmol/L BUN (9-20) mg/dL Creatinine (0.66-1.25) mg/dL Est GFR (CKD-EPI)AfAm (>60 ml/min/1.73 sqM) Est GFR (CKD-EPI)NonAf (>60 ml/min/1.73 sqM) Glucose (74-99) mg/dL Calcium (8.4-10.2) mg/dL Total Bilirubin (0.2-1.3) mg/dL AST (17-59) U/L ALT (4-49) U/L Alkaline Phosphatase (38-126) U/L Total Protein (6.3-8.2) g/dL Albumin (3.5-5.0) g/dL Amylase (30-110) U/L Lipase (23-300) U/L Urine Color Urine Appearance (Clear) Urine pH (5.0-8.0) Ur Specific Reading (1.001-1.035) Urine Protein (Negative) Urine Glucose (UA) (Negative) Urine Ketones (Negative) Urine Blood (Negative) Urine Nitrite (Negative) Urine Bilirubin (Negative) Urine Urobilinogen (<2.0) mg/dL Ur Leukocyte Esterase (Negative) Urine RBC (0-5) /hpf Urine WBC (0-5) /hpf Urine Mucus (None) /hpf Disposition <Girish White - Last Filed: 06/08/19 12:02> Is patient prescribed a controlled substance at d/c from ED?: No Time of Disposition: 11:08 Decision to Admit Reason: Admit from EC Decision Date: 06/08/19 Decision Time: 11:08 <Alma Delia Ghotra - Last Filed: 06/08/19 12:41> Clinical Impression: Ascites, Intractable abdominal pain, Thrombocytopenia Disposition: ADMITTED IP TO THIS HOSP Condition: Stable
[2019-06-08 10:23] LABS: Anisocytosis Slight; Basophils % (A) 0 %; Eosinophils % (A) 1 %; HCT 31.2 % (39.0-53.0); HGB 10.7 gm/dL (13.0-17.5); Lymphocytes # (A) 0.3 k/uL (1.0-4.8); Lymphocytes % (A) 12 %; MCHC 34.2 g/dL (31.0-37.0); MCV 96.4 fL (80.0-100.0); Macrocytosis Slight; Mean Platelet Volume 9.1; Monocytes # (A) 0.1 k/uL (0-1.0); Monocytes % (A) 5 %; Neutrophils # (A) 2.2 k/uL (1.3-7.7); Neutrophils % (A) 81 %; RBC 3.23 m/uL (4.30-5.90); RDW 17.9 % (11.5-15.5); WBC 2.8 k/uL (3.8-10.6)
[2019-06-08 10:25] LABS: Appearance,Urine Clear (Clear); Bilirubin,Urine Negative (Negative); Blood,Urine Negative (Negative); Color,Urine Orange; Glucose,Urine (UA) Negative (Negative); Ketones,Urine Trace (Negative); Leukocyte Esterase,Urine Negative (Negative); Mucus,Urine Occasional /hpf; Nitrite,Urine Negative (Negative); Protein,Urine 1+ (Negative); RBC,Urine 1 /hpf (0-5); Specific Gravity,Urine 1.033 (1.001-1.035); WBC,Urine <1 /hpf (0-5)
[2019-06-08] MEDS ORDERED: HYDROmorphone 0.5 MG/0.5 ML SYRINGE IVP STA (10:26)
[2019-06-08 10:37] LABS: ALT 11 U/L (4-49); AST 24 U/L (17-59); African American GFR (CKD) >90 (>60 ml/min/1.73 sqM); Albumin 2.6 g/dL (3.5-5.0); Alkaline Phosphatase 46 U/L (38-126); Amylase 84 U/L (30-110); Anion Gap 8 mmol/L; Blood Urea Nitrogen 22 mg/dL (9-20); Calcium 7.8 mg/dL (8.4-10.2); Carbon Dioxide 21 mmol/L (22-30); Chloride 107 mmol/L (98-107); Glucose 242 mg/dL (74-99); Non-African American GFR(CKD) 89 (>60 ml/min/1.73 sqM); Platelet Count 36 k/uL (150-450); Potassium 3.5 mmol/L (3.5-5.1); Sodium 136 mmol/L (137-145); Total Bilirubin 2.5 mg/dL (0.2-1.3); Total Protein 5.8 g/dL (6.3-8.2)
[2019-06-08 10:39] LABS: INR 1.5 (<1.2); Prothrombin Time 14.5 sec (9.0-12.0)
[2019-06-08] MEDS ORDERED: CALCIUM GLUCONATE 1 GM in SODIUM CHLORIDE 0.9% 100 ML IVPB ONE (10:47)
--- NOTE | 2019-06-08 11:05 | US ---
EXAMINATION TYPE: US abdomen limited DATE OF EXAM: 06/08/2019 COMPARISON: NONE CLINICAL HISTORY: ascites. Large volume of ascites visualized in all 4 quadrants IMPRESSION: Ascites as noted.
[2019-06-08] MEDS ORDERED: NALOXONE 0.4 MG/ML 1 ML VIAL IV PRN (11:06)
[2019-06-08] MEDS ORDERED: MORPHINE SULFATE 4 MG/ML SYRINGE IV PRN (11:06)
[2019-06-08] MEDS: HYDROmorphone 0.5 MG/0.5 ML SYRINGE IVP PRN ×3 (12:46→20:53)
[2019-06-08] MEDS ORDERED: MIDODRINE 5 MG TAB PO SCH (13:00)
[2019-06-08] MEDS: LIPASE 5,000/PROTEASE 17,000/AMYLASE 24,000 PO SCH ×2 (14:12→14:25)
[2019-06-08] MEDS: MAGNESIUM OXIDE 400 MG TAB PO SCH ×2 (14:19→20:52)
[2019-06-08] MEDS: FUROSEMIDE 40 MG TAB PO SCH (14:21)
[2019-06-08] MEDS: traMADol 50 MG TAB PO PRN ×2 (14:21→20:53)
[2019-06-08] MEDS: SUCRALFATE 1 GM TAB PO SCH ×3 (14:21→20:52)
[2019-06-08] MEDS: THIAMINE 100 MG TAB PO SCH (14:22)
[2019-06-08] MEDS: PANTOPRAZOLE 40 MG TABLET PO SCH (14:22)
[2019-06-08] MEDS: MIDODRINE 5 MG TAB PO SCH (14:22)
[2019-06-08] MEDS: LACTULOSE 20 GM/30 ML CUP PO SCH ×3 (14:23→20:57)
[2019-06-08] MEDS: SPIRONOLACTONE 25 MG TAB PO SCH (20:52)
[2019-06-08] MEDS ORDERED: METOPROLOL TARTRATE 25 MG TAB PO SCH (21:00)
[2019-06-08] MEDS ORDERED: SPIRONOLACTONE 25 MG TAB PO SCH (21:00)
[2019-06-08] MEDS: RIFAXIMIN 550 MG TABLET PO SCH (21:47)
[2019-06-09] MEDS: HYDROmorphone 0.5 MG/0.5 ML SYRINGE IVP PRN ×5 (01:29→13:24)
[2019-06-09] MEDS: traMADol 50 MG TAB PO PRN (03:21)
[2019-06-09] MEDS ORDERED: LEVOTHYROXINE 25 MCG TAB PO SCH (06:30)
[2019-06-09] MEDS: LACTULOSE 20 GM/30 ML CUP PO SCH ×2 (07:40→12:31)
[2019-06-09] MEDS: MIDODRINE 5 MG TAB PO SCH ×2 (08:02→12:30)
[2019-06-09] MEDS: PANTOPRAZOLE 40 MG TABLET PO SCH (08:02)
[2019-06-09] MEDS: LIPASE 5,000/PROTEASE 17,000/AMYLASE 24,000 PO SCH ×2 (08:02→12:30)
[2019-06-09] MEDS: FUROSEMIDE 40 MG TAB PO SCH (08:03)
[2019-06-09] MEDS: SUCRALFATE 1 GM TAB PO SCH ×2 (08:03→12:30)
[2019-06-09] MEDS: THIAMINE 100 MG TAB PO SCH (08:03)
[2019-06-09] MEDS: MAGNESIUM OXIDE 400 MG TAB PO SCH (08:04)
[2019-06-09] MEDS: SPIRONOLACTONE 25 MG TAB PO SCH (08:11)
[2019-06-09] MEDS ORDERED: PROPRANOLOL LA 80 MG CAP.SA.24H PO SCH (09:00)
[2019-06-09] MEDS ORDERED: MULTIVITAMINS, THERA 1 EACH TAB PO SCH (09:00)
[2019-06-09 11:09] VITALS: BMI 21.8
--- NOTE | 2019-06-09 12:21 | P.HPIM ---
History of Present Illness H&P Date: 06/08/19 Chief Complaint: Abdominal pain with worsening ascites This is a 43-year-old male patient of Dr. Sarmad Linn. He has history of alcohol liver cirrhosis with portal hypertension and previous GI bleeding, hypertension and gastritis, pancreatitis, spinal stenosis and peripheral neuropathy. Patient also has chronic back pain and was under the care of Dr. Lagunas but violated pain contract and no longer seen by pain management. He is also known to Dr. Ghazal Leiva from previous EGDs in the past finding gastritis consistent with portal gastropathy but no gastric or esophageal varices or active bleeding. He has had multipe admissions for acute GI bleed in Jan 2016, Mar 2016 and Mar 2017. He had admission for right leg abscess requiring I&D in December 2017. He has been admitted March for abdominal pain secondary to acute pancreatitis and worsening ascites. He underwent therapeutic paracentesis on April 04 with removal of 4.8 L of fluid. He was admitted again April 20 for ascites and abdominal pain and underwent a therapeutic paracentesis with removal of 2.5 L of serous fluid. He was then admitted May 10 underwent therapeutic paracentesis with removal of 6.4 L of serous fluid and again on May 22 5.5 L of serous fluid was removed. Patient came back in the emergency center on May 25 for ascites and was discharged home. Patient states he has follow-up with Deb SCOTT in the office with Dr. Leiva and was placed on 2 new medications but he has not picked up the prescriptions. He presents today complaining of abdominal distention, ascites and abdominal pain. May 29 ER admission again, he required admission with overnight stay. Platelet has to be transfused, and has to be obtained from another facility, prior to paracentesis, on May 31, 3.6.-colored fluid was drained Patient comes in to the emergency room again June 07, with same complaints of abdominal distention, with increasing ascites, patient needs a been compliant on his diuretics, we are going to obtain 4 units of platelets prior to thoracentesis, INR 1.5, platelet count of 36. Patient is Aldactone 50 mg twice a day, midodrine 5 mg 3 times a day, and lactulose 20 g, Lasix 40 mg twice a day, we'll going to change metoprolol to Inderal LA, increase aldactone 100 bid, increased lasix to 40 mg tid . Review of Systems Constitutional: Reports as per HPI, Reports anorexia, Reports poor appetite, Denies chills, Denies chronic headaches, Denies chronic pain, Denies daytime sleepiness, Denies fatigue, Denies fever, Denies lethargy, Denies malaise, Denies night sweats, Denies sweats, Denies weakness, Denies weight gain, Denies weight loss Ears, nose, mouth and throat: Reports as per HPI, Denies ant. neck pain, Denies bleeding gums, Denies dental pain, Denies dysphagia, Denies epistaxis, Denies headache, Denies hoarseness, Denies mouth pain, Denies nasal congestion, Denies nasal discharge, Denies neck fullness/pressure, Denies neck lump, Denies nose pain, Denies odynophagia, Denies post-nasal drip, Denies sinus pain, Denies sinus pressure, Denies swelling in mouth, Denies swelling in throat, Denies sore throat, Denies vertigo, Denies voice changes Cardiovascular: Reports decreased exercise tolerance, Reports edema Gastrointestinal: Reports abdominal pain, Reports bloating Genitourinary: Reports as per HPI Musculoskeletal: Reports as per HPI Integumentary: Reports as per HPI, Reports striae Neurological: Reports as per HPI, Denies aphasia, Denies ataxia, Denies balance difficulties, Denies burning pain, Denies change in mentation, Denies change in smell/taste, Denies change in speech, Denies confusion, Denies convulsions, Denies double vision, Denies gait dysfunction, Denies head injury, Denies headaches, Denies hearing difficulties, Denies lack of coordination, Denies loss of vision, Denies memory loss, Denies migraines, Denies motor disturbance, Denies numbness, Denies paralysis, Denies paresthesias, Denies seizures, Denies sensory deficit, Denies spasticity, Denies syncope, Denies tic, Denies tingling, Denies transient paralysis, Denies tremors, Denies vertigo, Denies weakness, Denies visual changes Psychiatric: Reports as per HPI, Denies anhedonia, Denies anxiety, Denies anxiety attacks, Denies change in appetite, Denies change in libido, Denies change in sleep habits, Denies confusion, Denies depression, Denies difficulty concentrating, Denies disorientation, Denies hallucinations, Denies hopelessness, Denies hypersomnia, Denies insomnia, Denies irritability, Denies memory loss, Denies mood swings, Denies paranoia, Denies sadness/tearfulness, Denies sleep disturbances, Denies suicidal ideation Hematologic/Lymphatic: Reports as per HPI Allergic/Immunologic: Reports as per HPI Past Medical History Past Medical History: GERD/Reflux, GI Bleed, Hypertension, Liver Disease, Thyroid Disorder Additional Past Medical History / Comment(s): Liver cirrhosis, portal htn, ETOH abuse, esophageal varicies, upper GI bleed, chronic thrombocytopenia, coagulopathy, pancytopenia, ascities, spinal stenosis: back/leg and feet pain, DDD, chronic back pain, neuropathy bilateral legs/feet, falls, bronchitis, 2010 [place], chronic pancreatitis History of Any Multi-Drug Resistant Organisms: None Reported Past Surgical History: Appendectomy, Joint Replacement Additional Past Surgical History / Comment(s): EGDs paracentesis, back injections, R thumb reattachment, circumcism. Past Anesthesia/Blood Transfusion Reactions: No Reported Reaction Additional Past Anesthesia/Blood Transfusion Reaction / Comment(s): Pt has received blood without reaction. Past Psychological History: No Psychological Hx Reported, Depression Smoking Status: Current some day smoker Past Alcohol Use History: None Reported, Abuse Past Drug Use History: None Reported - Past Family History Father Family Medical History: Unable to Obtain Additional Family Medical History / Comment(s): Pt does not know his father's medical hx. Mother Family Medical History: No Reported History Additional Family Medical History / Comment(s): Mother is healthy. Brother(s) Additional Family Medical History / Comment(s): Patient has 3 brothers and one suffers from alcohol abuse. 2 brothers have no major medical problems. Patient does not have any sisters. Patient is one daughter 12 years old with no major medical problems. Medications and Allergies Home Medications Medication Instructions Recorded Confirmed Type Levothyroxine Sodium [Synthroid] 25 mcg PO DAILY 05/07/16 06/08/19 History Pantoprazole Sodium [Protonix] 20 mg PO BID 01/02/17 06/08/19 History Rifaximin [Xifaxan] 550 mg PO BID 08/02/18 06/08/19 History Sucralfate [Carafate] 1 gm PO ACHS 09/22/18 06/08/19 History Magnesium Oxide [Mag-Ox] 200 mg PO TID tab 09/24/18 06/08/19 Rx Thiamine [Vitamin B-1] 100 mg PO BID-W/MEALS tab 09/24/18 06/08/19 Rx Lipase/Protease/Amylase [Zenpep Dr 5,000 unit PO AC-TID 10/18/18 06/08/19 History 5,000 Unit Capsule] Multivitamins, Thera [Multivitamin 1 tab PO DAILY 10/18/18 06/08/19 History (formulary)] Vitamin B Complex 1 cap PO DAILY 10/18/18 06/08/19 History Lactulose [Constulose] 20 gm PO QID 03/11/19 06/08/19 History Metoprolol Tartrate [Lopressor] 25 mg PO BID 03/11/19 06/08/19 History Furosemide [Lasix] 40 mg PO BID@0900,1600 #60 tab 04/04/19 06/08/19 Rx Midodrine [ProAmatine] 5 mg PO TID@0900,1300,1800 #90 tab 05/23/19 06/08/19 Rx Spironolactone [Aldactone] 50 mg PO BID #120 tab 05/23/19 06/08/19 Rx traMADol HCL [Ultram] 50 mg PO Q6HR PRN 3 Days #12 tab 06/01/19 06/08/19 Rx Allergies Allergy/AdvReac Type Severity Reaction Status Date / Time No Known Allergies Allergy Verified 06/08/19 11:21 Physical Exam Vitals: Vital Signs Temp Pulse Resp BP Pulse Ox 06/08/19 11:11 77 18 98/82 98 06/08/19 09:38 98 F 98 18 95/67 99 Intake and Output 06/07/19 06/08/19 06/08/19 22:59 06:59 14:59 Other: Weight 66.996 kg - Constitutional General appearance: cooperative, no acute distress - EENT Eyes: EOMI, PERRLA, dentition normal, normal appearance ENT: NA/AT, normal oropharynx - Neck Neck: normal ROM - Respiratory Respiratory: bilateral: CTA, negative: diminished, dullness, rales, rhonchi, wheezing - Cardiovascular Rhythm: regular Heart sounds: normal: S1, S2 Abnormal Heart Sounds: no systolic murmur, no diastolic murmur, no rub, no S3 Gallop, no S4 Gallop, no click, no other - Gastrointestinal General gastrointestinal: distended, hepatomegaly, normal bowel sounds, soft - Integumentary Integumentary: decreased turgor, normal - Neurologic Neurologic: CNII-XII intact - Musculoskeletal Musculoskeletal: gait normal, strength equal bilaterally - Psychiatric Psychiatric: A&O x's 3, appropriate affect, intact judgment & insight Results CBC & Chem 7: 06/08/19 10:11 06/08/19 10:11 Labs: Abnormal Lab Results - Last 24 Hours (Table) 06/08/19 06/08/19 06/08/19 Range/Units 10:11 10:11 10:11 WBC 2.8 L (3.8-10.6) k/uL RBC 3.23 L (4.30-5.90) m/uL Hgb 10.7 L (13.0-17.5) gm/dL Hct 31.2 L (39.0-53.0) % RDW 17.9 H (11.5-15.5) % Plt Count 36 L (150-450) k/uL Lymphocytes # 0.3 L (1.0-4.8) k/uL PT (9.0-12.0) sec INR (<1.2) Sodium 136 L (137-145) mmol/L Carbon Dioxide 21 L (22-30) mmol/L BUN 22 H (9-20) mg/dL Glucose 242 H (74-99) mg/dL Calcium 7.8 L (8.4-10.2) mg/dL Total Bilirubin 2.5 H (0.2-1.3) mg/dL Total Protein 5.8 L (6.3-8.2) g/dL Albumin 2.6 L (3.5-5.0) g/dL Lipase 446 H (23-300) U/L Urine Protein 1+ H (Negative) Urine Ketones Trace H (Negative) Urine Mucus Occasional H (None) /hpf 06/08/19 Range/Units 10:11 WBC (3.8-10.6) k/uL RBC (4.30-5.90) m/uL Hgb (13.0-17.5) gm/dL Hct (39.0-53.0) % RDW (11.5-15.5) % Plt Count (150-450) k/uL Lymphocytes # (1.0-4.8) k/uL PT 14.5 H (9.0-12.0) sec INR 1.5 H (<1.2) Sodium (137-145) mmol/L Carbon Dioxide (22-30) mmol/L BUN (9-20) mg/dL Glucose (74-99) mg/dL Calcium (8.4-10.2) mg/dL Total Bilirubin (0.2-1.3) mg/dL Total Protein (6.3-8.2) g/dL Albumin (3.5-5.0) g/dL Lipase (23-300) U/L Urine Protein (Negative) Urine Ketones (Negative) Urine Mucus (None) /hpf Laboratory Results WBC 2.8 k/uL (3.8-10.6) L 06/08/19 10:11 RBC 3.23 m/uL (4.30-5.90) L 06/08/19 10:11 Hgb 10.7 gm/dL (13.0-17.5) L 06/08/19 10:11 Hct 31.2 % (39.0-53.0) L 06/08/19 10:11 MCV 96.4 fL (80.0-100.0) 06/08/19 10:11 MCH 33.0 pg (25.0-35.0) 06/08/19 10:11 MCHC 34.2 g/dL (31.0-37.0) 06/08/19 10:11 RDW 17.9 % (11.5-15.5) H 06/08/19 10:11 Plt Count 36 k/uL (150-450) L 06/08/19 10:11 Neutrophils % 81 % 06/08/19 10:11 Lymphocytes % 12 % 06/08/19 10:11 Monocytes % 5 % 06/08/19 10:11 Eosinophils % 1 % 06/08/19 10:11 Basophils % 0 % 06/08/19 10:11 Neutrophils # 2.2 k/uL (1.3-7.7) 06/08/19 10:11 Lymphocytes # 0.3 k/uL (1.0-4.8) L 06/08/19 10:11 Monocytes # 0.1 k/uL (0-1.0) 06/08/19 10:11 Eosinophils # 0.0 k/uL (0-0.7) 06/08/19 10:11 Basophils # 0.0 k/uL (0-0.2) 06/08/19 10:11 Anisocytosis Slight 06/08/19 10:11 Macrocytosis Slight 06/08/19 10:11 PT 14.5 sec (9.0-12.0) H 06/08/19 10:11 INR 1.5 (<1.2) H 06/08/19 10:11 Sodium 136 mmol/L (137-145) L 06/08/19 10:11 Potassium 3.5 mmol/L (3.5-5.1) 06/08/19 10:11 Chloride 107 mmol/L (98-107) 06/08/19 10:11 Carbon Dioxide 21 mmol/L (22-30) L 06/08/19 10:11 Anion Gap 8 mmol/L 06/08/19 10:11 BUN 22 mg/dL (9-20) H 06/08/19 10:11 Creatinine 1.03 mg/dL (0.66-1.25) 06/08/19 10:11 Est GFR (CKD-EPI)AfAm >90 (>60 ml/min/1.73 sqM) 06/08/19 10:11 Est GFR (CKD-EPI)NonAf 89 (>60 ml/min/1.73 sqM) 06/08/19 10:11 Glucose 242 mg/dL (74-99) H 06/08/19 10:11 Calcium 7.8 mg/dL (8.4-10.2) L 06/08/19 10:11 Total Bilirubin 2.5 mg/dL (0.2-1.3) H 06/08/19 10:11 AST 24 U/L (17-59) 06/08/19 10:11 ALT 11 U/L (4-49) 06/08/19 10:11 Alkaline Phosphatase 46 U/L (38-126) 06/08/19 10:11 Total Protein 5.8 g/dL (6.3-8.2) L 06/08/19 10:11 Albumin 2.6 g/dL (3.5-5.0) L 06/08/19 10:11 Amylase 84 U/L (30-110) 06/08/19 10:11 Lipase 446 U/L (23-300) H 06/08/19 10:11 Urine Color [place] 06/08/19 10:11 Urine Appearance Clear (Clear) 06/08/19 10:11 Urine pH 6.0 (5.0-8.0) 06/08/19 10:11 Ur Specific [place] 1.033 (1.001-1.035) 06/08/19 10:11 Urine Protein 1+ (Negative) H 06/08/19 10:11 Urine Glucose (UA) Negative (Negative) 06/08/19 10:11 Urine Ketones Trace (Negative) H 06/08/19 10:11 Urine Blood Negative (Negative) 06/08/19 10:11 Urine Nitrite Negative (Negative) 06/08/19 10:11 Urine Bilirubin Negative (Negative) 06/08/19 10:11 Urine Urobilinogen 4.0 mg/dL (<2.0) 06/08/19 10:11 Ur Leukocyte Esterase Negative (Negative) 06/08/19 10:11 Urine RBC 1 /hpf (0-5) 06/08/19 10:11 Urine WBC <1 /hpf (0-5) 06/08/19 10:11 Urine Mucus Occasional /hpf (None) H 06/08/19 10:11 Thrombosis Risk Factor Assmnt - DVT/VTE Prophylaxis DVT/VTE Prophylaxis: Pharmacologic Prophylaxis ordered - Choose All That Apply Each Factor Represents 1 point: Age 41-60 years Thrombosis Risk Factor Assessment Total Risk Factor Score: 1 Thrombosis Risk Factor Assessment Level: Low Risk Assessment and Plan Plan: 1. Abdominal pain secondary to worsening ascites required platelets prior to abdominal paracenteses. Interventional radiology for therapeutic paracentesis. Continue lactulose 20 mg 4 times daily, Zenpep 3 times daily, Xifaxan 550 mg twice daily, Aldactone increased to 100 mg mg twice daily, increased to Lasix 60 mg twice daily. Increase midodrine to 10 mg 3 times a day 2. History of alcoholic liver disease with portal hypertension and previous episodes of acute GI bleed with acute blood loss anemia resulting in multiple h ospitalizations for GI bleeding from esophageal varices status post banding. Continue Protonix 40 mg daily and Carafate. Change metoprolol to Inderal LA 80 mg daily 3. Chronic pancytopenia with severe thrombocytopenia secondary to chronic EtOH related bone marrow damage and portal hypertension causing splenic sequestration. Transfuse 1 unit of platelets prior to paracentesis. 4. Spinal stenosis with peripheral neuropathy. 5. Tobacco use and dependence. Patient quit, on sustained remission c 6. Hypothyroidism. Continue levothyroxine 25 g daily. 7. Recurrent depression without suicidal ideation or homicidal intention. 8. Peripheral neuropathy secondary to alcoholism and spinal stenosis. 9. Gastroesophageal reflux disease and GI prophylaxis. Continue Protonix and Carafate. 10. DVT prophylaxis. No heparin due to thrombocytopenia. SCDs and ANDREEA hose and early ambulation. Patient placed as an observation status. Discharge plan: Home. Discharge home after paracentesis.
[2019-06-09] MEDS: RIFAXIMIN 550 MG TABLET PO SCH (12:30)
[2019-06-09] MEDS: ALBUMIN HUMAN 25% 50 ML in EMPTY BAG 1 BAG IVPB SCH ×4 (12:43→13:55)
--- NOTE | 2019-06-09 12:44 | P.DS ---
Providers Date of admission: 06/08/19 12:01 Expected date of discharge: 06/09/19 Attending physician: Wilton Bateman [facility] Course: This is a 43-year-old male patient of Dr. Sarmad Linn. He has history of alcohol liver cirrhosis with portal hypertension and previous GI bleeding, hypertension and gastritis, pancreatitis, spinal stenosis and peripheral neuropathy. Patient also has chronic back pain and was under the care of Dr. Lagunas but violated pain contract and no longer seen by pain management. He is also known to Dr. Ghazal Leiva from previous EGDs in the past finding gastritis consistent with portal gastropathy but no gastric or esophageal varices or active bleeding. He has had multipe admissions for acute GI bleed in Jan 2016, Mar 2016 and Mar 2017. He had admission for right leg abscess requiring I&D in December 2017. He has been admitted March for abdominal pain secondary to acute pancreatitis and worsening ascites. He underwent therapeutic paracentesis on April 04 with removal of 4.8 L of fluid. He was admitted again April 20 for ascites and abdominal pain and underwent a therapeutic paracentesis with removal of 2.5 L of serous fluid. He was then admitted May 10 underwent therapeutic paracentesis with removal of 6.4 L of serous fluid and again on May 22 5.5 L of serous fluid was removed. Patient came back in the emergency center on May 25 for ascites and was discharged home. Patient states he has follow-up with Deb SCOTT in the office with Dr. Leiva and was placed on 2 new medications but he has not picked up the prescriptions. He presents today complaining of abdominal distention, ascites and abdominal pain. May 29 ER admission again, he required admission with overnight stay. Platelet has to be transfused, and has to be obtained from another facility, prior to paracentesis, on May 31, 3.6.-colored fluid was drained Patient comes in to the emergency room again June 07, with same complaints of abdominal distention, with increasing ascites, patient needs a been compliant on his diuretics, we are going to obtain 4 units of platelets prior to thoracentesis, INR 1.5, platelet count of 36. Patient is Aldactone 50 mg twice a day, midodrine 5 mg 3 times a day, and lactulose 20 g, Lasix 40 mg twice a day, we'll going to change metoprolol to Inderal LA, increase aldactone 100 bid, increased lasix to 40 mg tid . 06/08: Patient underwent therapeutic paracentesis today with removal of 6.7 L. Albumin has been ordered post procedure. Patient's abdominal discomfort is much improved and he will be discharged home once all arrangements are made. Discharge diagnoses: 1. Abdominal pain secondary to worsening ascites required platelets prior to abdominal paracenteses. 2. History of alcoholic liver disease with portal hypertension and previous episodes of acute GI bleed with acute blood loss anemia resulting in multiple hospitalizations for GI bleeding from esophageal varices status post banding. 3. Chronic pancytopenia with severe thrombocytopenia secondary to chronic EtOH related bone marrow damage and portal hypertension causing splenic sequestration. 4. Spinal stenosis with peripheral neuropathy. 5. Tobacco use and dependence. 6. Hypothyroidism. 7. Recurrent depression without suicidal ideation or homicidal intention. 8. Peripheral neuropathy secondary to alcoholism and spinal stenosis. 9. Gastroesophageal reflux disease Discharge plan: Home. Discharge home Impression and plan of care have been directed as dictated by the signing physician. Giovana Kathleen nurse practitioner acting as scribe for signing physician. Patient Condition at Discharge: Good Plan - Discharge Summary Discharge Rx Participant: No New Discharge Prescriptions: New Spironolactone [Aldactone] 100 mg PO BID #60 tab Propranolol LA [Inderal LA] 80 mg PO DAILY #30 cap.sa.24h Midodrine HCl [ProAmatine] 10 mg PO TID@0900,1300,1800 #90 tablet Continue Levothyroxine Sodium [Synthroid] 25 mcg PO DAILY Pantoprazole Sodium [Protonix] 20 mg PO BID Rifaximin [Xifaxan] 550 mg PO BID Sucralfate [Carafate] 1 gm PO ACHS Magnesium Oxide [Mag-Ox] 200 mg PO TID tab Thiamine [Vitamin B-1] 100 mg PO BID-W/MEALS tab Vitamin B Complex 1 cap PO DAILY Multivitamins, Thera [Multivitamin (formulary)] 1 tab PO DAILY Lipase/Protease/Amylase [Zenpep Dr 5,000 Unit Capsule] 5,000 unit PO AC-TID Lactulose [Constulose] 20 gm PO QID Furosemide [Lasix] 40 mg PO BID@0900,1600 #60 tab traMADol HCL [Ultram] 50 mg PO Q6HR PRN 3 Days #12 tab PRN Reason: Pain Discontinued Metoprolol Tartrate [Lopressor] 25 mg PO BID Spironolactone [Aldactone] 50 mg PO BID #120 tab Midodrine [ProAmatine] 5 mg PO TID@0900,1300,1800 #90 tab Discharge Medication List Levothyroxine Sodium [Synthroid] 25 mcg PO DAILY 05/07/16 [History] Pantoprazole Sodium [Protonix] 20 mg PO BID 01/02/17 [History] Rifaximin [Xifaxan] 550 mg PO BID 08/02/18 [History] Sucralfate [Carafate] 1 gm PO ACHS 09/22/18 [History] Magnesium Oxide [Mag-Ox] 200 mg PO TID tab 09/24/18 [Rx] Thiamine [Vitamin B-1] 100 mg PO BID-W/MEALS tab 09/24/18 [Rx] Lipase/Protease/Amylase [Zenpep Dr 5,000 Unit Capsule] 5,000 unit PO AC-TID 10/18/18 [History] Multivitamins, Thera [Multivitamin (formulary)] 1 tab PO DAILY 10/18/18 [History] Vitamin B Complex 1 cap PO DAILY 10/18/18 [History] Lactulose [Constulose] 20 gm PO QID 03/11/19 [History] Furosemide [Lasix] 40 mg PO BID@0900,1600 #60 tab 04/04/19 [Rx] traMADol HCL [Ultram] 50 mg PO Q6HR PRN 3 Days #12 tab 06/01/19 [Rx] Midodrine HCl [ProAmatine] 10 mg PO TID@0900,1300,1800 #90 tablet 06/09/19 [Rx] Propranolol LA [Inderal LA] 80 mg PO DAILY #30 cap.sa.24h 06/09/19 [Rx] Spironolactone [Aldactone] 100 mg PO BID #60 tab 06/09/19 [Rx] Follow up Appointment(s)/Referral(s): Pablo Linn MD [Primary Care Provider] - 3 Days Macy Leiva MD [STAFF PHYSICIAN] - 1 Week Discharge Disposition: HOME SELF-CARE
--- NOTE | 2019-06-09 13:13 | US ---
Ultrasound-guided paracentesis. DATE OF EXAM: 06/09/2019 CLINICAL HISTORY: Ascites The procedure was discussed with the patient. The risks, complications, benefits, and alternatives we re discussed and any questions were answered. Informed consent was obtained. The patient was placed s upine on the ultrasound table and prepped and draped in the usual sterile fashion. All elements of maximal barrier technique were utilized. Under ultrasound guidance, access into the right lower quadrant was obtained, via the paracentesis catheter system and direct ultrasound guidanc e. Approximately 6. 6 liters of straw-colored fluid was removed. The patient was stable throughout the p rocedure and remained stable upon discharge from Department of Radiology. Note is made the patient wa s given platelets prior to and during the procedure. IMPRESSION: Successful paracentesis under ultrasound guidance.
[2019-06-09 14:12] VITALS: BP 110/67; PULSE 74; RESP 18; TEMP 97.8
== END 2019-06-09 14:32 | disposition home or self-care (01) ==
LOC: EC 09:33 → 5NMEDONC 12:01
PROVIDERS: ADMIT Internal Medicine Geriatric Medicine; ATTEND Internal Medicine Geriatric Medicine
DX: K70.31 Alcoholic cirrhosis of liver with ascites (principal); K76.6 Portal hypertension; Z87.19 Personal history of other diseases of the digestive system; D61.818 Other pancytopenia; E03.9 Hypothyroidism, unspecified; F33.9 Major depressive disorder, recurrent, unspecified; K21.9 Gastro-esophageal reflux disease without esophagitis; M48.00 Spinal stenosis, site unspecified; G62.1 Alcoholic polyneuropathy; F10.20 Alcohol dependence, uncomplicated; D69.59 Other secondary thrombocytopenia; I10 Essential (primary) hypertension; K70.9 Alcoholic liver disease, unspecified; K86.1 Other chronic pancreatitis; G89.29 Other chronic pain; Z79.899 Other long term (current) drug therapy; Z87.09 Personal history of other diseases of the respiratory system; Z79.890 Hormone replacement therapy; Z79.891 Long term (current) use of opiate analgesic; Z87.891 Personal history of nicotine dependence; Z81.1 Family history of alcohol abuse and dependence
CPT/HCPCS: 36430; 96376 ×2; 96366; 96367; 96365; 96375; 99285; 36415; 86900; 86901; 80053; 82150; 83690; 85025; 85610; 86850; 81001; 76705; 49083; G0378 ×2; P9035; P9047; J0610; J1170 ×2

== ENCOUNTER 2019-06-15 08:05 | Day surgery (SDC) | payer MEDICARE ==
[2019-06-15 08:35] LABS: Mean Platelet Volume 8.3
[2019-06-15 08:49] LABS: Platelet Count 69 k/uL (150-450)
[2019-06-15 08:50] LABS: INR 1.4 (<1.2); Prothrombin Time 13.6 sec (9.0-12.0)
[2019-06-15 08:58] VITALS: TEMP 98
[2019-06-15 10:12] VITALS: RESP 16
[2019-06-15 11:27] VITALS: BP 101/65; PULSE 59
--- NOTE | 2019-06-15 12:53 | US ---
Ultrasound-guided paracentesis. DATE OF EXAM: 06/15/2019 CLINICAL HISTORY: Ascites The procedure was discussed with the patient. The risks, complications, benefits, and alternatives we re discussed and any questions were answered. Informed consent was obtained. The patient was placed s upine on the ultrasound table and prepped and draped in the usual sterile fashion. All elements of maximal barrier technique were utilized. Under ultrasound guidance, access into the right lower quadrant was obtained, via the paracentesis catheter system and direct ultrasound guidanc e. Approximately 2.3 liters of straw-colored fluid was removed. The patient was stable throughout the pr ocedure and remained stable upon discharge from Department of Radiology. IMPRESSION: Successful paracentesis under ultrasound guidance.
== END 2019-06-15 10:45 | disposition home or self-care (01) ==
LOC: RADPROMAIN 08:05
PROVIDERS: ATTEND Internal Medicine Gastroenterology
DX: R18.8 Other ascites (principal)
CPT/HCPCS: 36415; 49083; 82565; 85049; 85610

== ENCOUNTER 2019-06-20 02:11 | Inpatient (IN) | payer MEDICARE ==
[2019-06-20] MEDS ORDERED: ONDANSETRON 4 MG/2 ML VIAL IVP STA (02:33)
[2019-06-20] MEDS ORDERED: MORPHINE SULFATE 4 MG/ML SYRINGE IV STA (02:33)
[2019-06-20] MEDS ORDERED: PANTOPRAZOLE 40 MG/10 ML VIAL IVP STA (02:33)
--- NOTE | 2019-06-20 02:35 | ED ---
Abdominal Pain HPI - General Chief Complaint: Abdominal Pain Stated Complaint: Abdominal Pain Time Seen by Provider: 06/20/19 02:33 Source: patient, RN notes reviewed, old records reviewed Mode of arrival: ambulatory Limitations: no limitations - History of Present Illness Initial Comments: This is a 43-year-old male DF for evaluation patient's impending poor historian likely from encephalopathy difficulty answering questions currently with states is having pain severe abdominal pain with persistent nausea and vomiting afebrile. No recent travel history no known sick contacts patient does currently get regular therapeutic paracentesis states his belly is diffusely much better than prior as far as swelling and ascites plate does have severe pain currently which is new. Different than his normal pain. MD Complaint: abdominal pain -: hour(s) Location: diffuse, periumbilical Radiation: none Migration to: epigastric, suprapubic Severity: moderate Severity scale (1-10): 4 Quality: cramping Consistency: intermittent Improves With: nothing Worsens With: nothing Associated Symptoms: nausea - Related Data Home Medications Medication Instructions Recorded Confirmed Levothyroxine Sodium [Synthroid] 25 mcg PO DAILY 05/07/16 06/15/19 Pantoprazole Sodium [Protonix] 20 mg PO BID 01/02/17 06/15/19 Rifaximin [Xifaxan] 550 mg PO BID 08/02/18 06/15/19 Sucralfate [Carafate] 1 gm PO ACHS 09/22/18 06/15/19 Lipase/Protease/Amylase [Zenpep Dr 5,000 unit PO AC-TID 10/18/18 06/15/19 5,000 Unit Capsule] Multivitamins, Thera [Multivitamin 1 tab PO DAILY 10/18/18 06/15/19 (formulary)] Vitamin B Complex 1 cap PO DAILY 10/18/18 06/15/19 Lactulose [Constulose] 20 gm PO QID 03/11/19 06/15/19 Previous Rx's Medication Instructions Recorded Magnesium Oxide [Mag-Ox] 200 mg PO TID tab 09/24/18 Thiamine [Vitamin B-1] 100 mg PO BID-W/MEALS tab 09/24/18 Furosemide [Lasix] 40 mg PO BID@0900,1600 #60 tab 04/04/19 Midodrine HCl [ProAmatine] 10 mg PO TID@0900,1300,1800 #90 06/09/19 tablet Propranolol LA [Inderal LA] 80 mg PO DAILY #30 cap.sa.24h 06/09/19 Spironolactone [Aldactone] 100 mg PO BID #60 tab 06/09/19 Allergies Allergy/AdvReac Type Severity Reaction Status Date / Time No Known Allergies Allergy Verified 06/15/19 09:05 Review of Systems ROS Statement: Those systems with pertinent positive or pertinent negative responses have been documented in the HPI. ROS Other: All systems not noted in ROS Statement are negative. Past Medical History Past Medical History: GERD/Reflux, GI Bleed, Hypertension, Liver Disease, Thyroid Disorder Additional Past Medical History / Comment(s): Liver cirrhosis, portal htn, ETOH abuse, esophageal varicies, upper GI bleed, chronic thrombocytopenia, coagulopathy, pancytopenia, ascities, spinal stenosis: back/leg and feet pain, DDD, chronic back pain, neuropathy bilateral legs/feet, falls, bronchitis, 2010 Guillian [place], chronic pancreatitis History of Any Multi-Drug Resistant Organisms: None Reported Past Surgical History: Appendectomy, Joint Replacement Additional Past Surgical History / Comment(s): EGDs paracentesis, back injections, R thumb reattachment, circumcism. Past Anesthesia/Blood Transfusion Reactions: No Reported Reaction Additional Past Anesthesia/Blood Transfusion Reaction / Comment(s): Pt has received blood without reaction. Past Psychological History: No Psychological Hx Reported, Depression Smoking Status: Current some day smoker Past Alcohol Use History: None Reported, Abuse Past Drug Use History: None Reported - Past Family History Father Family Medical History: Unable to Obtain Additional Family Medical History / Comment(s): Pt does not know his father's medical hx. Mother Family Medical History: No Reported History Additional Family Medical History / Comment(s): Mother is healthy. Brother(s) Additional Family Medical History / Comment(s): Patient has 3 brothers and one suffers from alcohol abuse. 2 brothers have no major medical problems. Patient does not have any sisters. Patient is one daughter 12 years old with no major medical problems. General Exam Limitations: no limitations General appearance: alert, in no apparent distress Head exam: Present: atraumatic, normocephalic, normal inspection Eye exam: Present: normal appearance, PERRL, EOMI. Absent: scleral icterus, conjunctival injection, periorbital swelling ENT exam: Present: normal exam, mucous membranes moist Neck exam: Present: normal inspection. Absent: tenderness, meningismus, lymphadenopathy Respiratory exam: Present: normal lung sounds bilaterally. Absent: respiratory distress, wheezes, rales, rhonchi, stridor Cardiovascular Exam: Present: regular rate, normal rhythm, normal heart sounds. Absent: systolic murmur, diastolic murmur, rubs, gallop, clicks GI/Abdominal exam: Present: soft, tenderness, normal bowel sounds. Absent: distended, guarding, rebound, rigid Extremities exam: Present: normal inspection, full ROM, normal capillary refill. Absent: tenderness, pedal edema, joint swelling, calf tenderness Back exam: Present: normal inspection Neurological exam: Present: alert, oriented X3, CN II-XII intact Psychiatric exam: Present: normal affect, normal mood Skin exam: Present: warm, dry, intact, normal color. Absent: rash Course Vital Signs 06/20/19 02:17 Temperature 98.3 F Pulse Rate 80 Respiratory 18 Rate Blood Pressure 102/70 O2 Sat by Pulse 100 Oximetry - Reevaluation(s) Reevaluation #1: 06/20/19 03:37 Medical records reviewed Reevaluation #2: 06/20/19 03:37 patient remains fairly confused here in the ER - Consultations Consultation #1: Spoke with Dr. Fransico harmon who is okay for admission Medical Decision Making - Medical Decision Making 43 male DF for evaluation patient is altered mental status and hepatic encephalopathic ammonia will place. on lactulose, patient also severe abdominal pain with nausea vomiting unable to take medications at home secondary to pancreatitis acute on chronic - Lab Data Result diagrams: 06/20/19 02:32 06/20/19 02:32 Lab Results 06/20/19 06/20/19 06/20/19 Range/Units 02:32 02:32 02:32 WBC 4.7 (3.8-10.6) k/uL RBC 4.21 L (4.30-5.90) m/uL Hgb 13.2 (13.0-17.5) gm/dL Hct 40.0 (39.0-53.0) % MCV 95.0 (80.0-100.0) fL MCH 31.4 (25.0-35.0) pg MCHC 33.0 (31.0-37.0) g/dL RDW 17.1 H (11.5-15.5) % Plt Count 61 L (150-450) k/uL Neutrophils % 71 % Lymphocytes % 9 % Monocytes % 14 % Eosinophils % 2 % Basophils % 1 % Neutrophils # 3.4 (1.3-7.7) k/uL Lymphocytes # 0.4 L (1.0-4.8) k/uL Monocytes # 0.6 (0-1.0) k/uL Eosinophils # 0.1 (0-0.7) k/uL Basophils # 0.0 (0-0.2) k/uL Anisocytosis Slight PT 13.8 H (9.0-12.0) sec INR 1.4 H (<1.2) APTT 25.3 (22.0-30.0) sec Sodium 134 L (137-145) mmol/L Potassium 4.6 (3.5-5.1) mmol/L Chloride 95 L (98-107) mmol/L Carbon Dioxide 29 (22-30) mmol/L Anion Gap 10 mmol/L BUN 30 H (9-20) mg/dL Creatinine 1.55 H (0.66-1.25) mg/dL Est GFR (CKD-EPI)AfAm 63 (>60 ml/min/1.73 sqM) Est GFR (CKD-EPI)NonAf 54 (>60 ml/min/1.73 sqM) Glucose 182 H (74-99) mg/dL Calcium 9.2 (8.4-10.2) mg/dL Phosphorus 3.6 (2.5-4.5) mg/dL Magnesium 1.7 (1.6-2.3) mg/dL Total Bilirubin 3.5 H (0.2-1.3) mg/dL AST 33 (17-59) U/L ALT 13 (4-49) U/L Alkaline Phosphatase 65 (38-126) U/L Ammonia (<30) umol/L Total Protein 7.7 (6.3-8.2) g/dL Albumin 4.1 (3.5-5.0) g/dL Amylase 119 H (30-110) U/L Lipase 339 H (23-300) U/L 06/20/19 Range/Units 02:32 WBC (3.8-10.6) k/uL RBC (4.30-5.90) m/uL Hgb (13.0-17.5) gm/dL Hct (39.0-53.0) % MCV (80.0-100.0) fL MCH (25.0-35.0) pg MCHC (31.0-37.0) g/dL RDW (11.5-15.5) % Plt Count (150-450) k/uL Neutrophils % % Lymphocytes % % Monocytes % % Eosinophils % % Basophils % % Neutrophils # (1.3-7.7) k/uL Lymphocytes # (1.0-4.8) k/uL Monocytes # (0-1.0) k/uL Eosinophils # (0-0.7) k/uL Basophils # (0-0.2) k/uL Anisocytosis PT (9.0-12.0) sec INR (<1.2) APTT (22.0-30.0) sec Sodium (137-145) mmol/L Potassium (3.5-5.1) mmol/L Chloride (98-107) mmol/L Carbon Dioxide (22-30) mmol/L Anion Gap mmol/L BUN (9-20) mg/dL Creatinine (0.66-1.25) mg/dL Est GFR (CKD-EPI)AfAm (>60 ml/min/1.73 sqM) Est GFR (CKD-EPI)NonAf (>60 ml/min/1.73 sqM) Glucose (74-99) mg/dL Calcium (8.4-10.2) mg/dL Phosphorus (2.5-4.5) mg/dL Magnesium (1.6-2.3) mg/dL Total Bilirubin (0.2-1.3) mg/dL AST (17-59) U/L ALT (4-49) U/L Alkaline Phosphatase (38-126) U/L Ammonia 50 H (<30) umol/L Total Protein (6.3-8.2) g/dL Albumin (3.5-5.0) g/dL Amylase (30-110) U/L Lipase (23-300) U/L - Radiology Data Radiology results: report reviewed (XR abd w chest shows ileus), image reviewed Disposition Clinical Impression: Alcoholic cirrhosis of liver, Nausea & vomiting, Acute pancreatitis, Hyperammonemia, Hepatic encephalopathy, Ileus Disposition: ADMITTED IP TO THIS HOSP Condition: Fair Is patient prescribed a controlled substance at d/c from ED?: No Referrals: Pablo Linn MD [Primary Care Provider] - 1-2 days
[2019-06-20 02:59] LABS: INR 1.4 (<1.2); Partial Thromboplastin Time 25.3 sec (22.0-30.0); Prothrombin Time 13.8 sec (9.0-12.0)
[2019-06-20 03:04] LABS: Anisocytosis Slight; Basophils % (A) 1 %; Eosinophils # (A) 0.1 k/uL (0-0.7); Eosinophils % (A) 2 %; HGB 13.2 gm/dL (13.0-17.5); Lymphocytes # (A) 0.4 k/uL (1.0-4.8); Lymphocytes % (A) 9 %; MCH 31.4 pg (25.0-35.0); Mean Platelet Volume 8.1; Monocytes # (A) 0.6 k/uL (0-1.0); Monocytes % (A) 14 %; Neutrophils # (A) 3.4 k/uL (1.3-7.7); Neutrophils % (A) 71 %; RBC 4.21 m/uL (4.30-5.90); RDW 17.1 % (11.5-15.5); WBC 4.7 k/uL (3.8-10.6)
[2019-06-20 03:06] LABS: Platelet Count 61 k/uL (150-450)
[2019-06-20 03:07] LABS: Albumin 4.1 g/dL (3.5-5.0); Calcium 9.2 mg/dL (8.4-10.2); Magnesium 1.7 mg/dL (1.6-2.3); Phosphorus 3.6 mg/dL (2.5-4.5); Potassium 4.6 mmol/L (3.5-5.1); Total Bilirubin 3.5 mg/dL (0.2-1.3); Total Protein 7.7 g/dL (6.3-8.2)
--- NOTE | 2019-06-20 03:09 | XR ---
EXAMINATION TYPE: XR abdomen acute w cxr DATE OF EXAM: 06/20/2019 COMPARISON: 05/26/2019 HISTORY: Abdominal pain. TECHNIQUE: 4 views FINDINGS: Heart and mediastinum are normal. Lungs are clear of infiltrate. There is no sign of pneum operitoneum. There are a few distended with fluid and air-filled small bowel loops in the mid abdomen . There are no pathologic calcifications over the kidneys. Bony structures are intact. IMPRESSION: No active cardiopulmonary disease. Distended small bowel with air and fluid that could re late to intestinal ileus and appears increased compared to old exam. I do not suspect a mechanical jaqueline wel obstruction. Gas pattern in the right colon is fairly normal.
[2019-06-20] MEDS ORDERED: SODIUM CHLORIDE 0.9% 1,000 ML IV ONE (03:35)
[2019-06-20] MEDS ORDERED: ONDANSETRON 4 MG/2 ML VIAL IVP PRN (03:35)
[2019-06-20] MEDS: MORPHINE SULFATE 4 MG/ML SYRINGE IVP PRN ×5 (05:36→21:30)
[2019-06-20] MEDS ORDERED: INSULIN ASPART (NovoLOG) 100 UNIT/ML VIAL SQ SCH (08:15)
[2019-06-20] MEDS ORDERED: NON FORMULARY DRUG (Vitamin B Complex [Vitamin B Complex] 1 CAP) PO SCH (09:00)
[2019-06-20] MEDS ORDERED: FUROSEMIDE 40 MG TAB PO SCH (09:00)
[2019-06-20] MEDS ORDERED: PANTOPRAZOLE 40 MG TABLET PO SCH (09:00)
[2019-06-20 09:04] LABS: Glucose,Whole Blood 123 mg/dL (75-99)
[2019-06-20] MEDS: LACTULOSE 20 GM/30 ML CUP PO SCH ×4 (09:21→21:21)
[2019-06-20] MEDS: MAGNESIUM OXIDE 400 MG TAB PO SCH ×3 (09:21→21:19)
[2019-06-20] MEDS: MIDODRINE 5 MG TAB PO SCH ×3 (09:22→17:43)
[2019-06-20] MEDS: PANTOPRAZOLE 40 MG/10 ML VIAL IVP SCH (09:22)
[2019-06-20] MEDS: LEVOTHYROXINE 25 MCG TAB PO SCH (09:22)
[2019-06-20] MEDS: MULTIVITAMINS, THERA 1 EACH TAB PO SCH (09:22)
[2019-06-20] MEDS: SPIRONOLACTONE 25 MG TAB PO SCH ×2 (09:22→21:20)
[2019-06-20] MEDS: PROPRANOLOL LA 80 MG CAP.SA.24H PO SCH (09:23)
[2019-06-20] MEDS: RIFAXIMIN 550 MG TABLET PO SCH ×2 (09:23→21:21)
[2019-06-20 10:00] VITALS: BMI 17.9
--- NOTE | 2019-06-20 10:04 | P.HPIM ---
History of Present Illness H&P Date: 06/20/19 This is a 43-year-old male patient of Dr. Sarmad Linn. He has history of alcohol liver cirrhosis with portal hypertension and previous GI bleeding, hypertension and gastritis, pancreatitis, spinal stenosis and peripheral neuropathy. Patient also has chronic back pain and was under the c are of Dr. Lagunas but violated pain contract and no longer seen by pain management. He is also known to Dr. Ghazal Leiva from previous EGDs in the past finding gastritis consistent with portal gastropathy but no gastric or esophageal varices or active bleeding. He has had multipe admissions for acute GI bleed in Jan 2016, Mar 2016 and Mar 2017. He had admission for right leg abscess requiring I&D in December 2017. Patient has had multiple admissions for acute pancreatitis with worsening ascites. Most recently, hospitalizations have been for ascites and therapeutic paracentesis. His most recent hospitalization was June 07 through June 08 which time he underwent paracentesis with removal of 6.6 L of straw-colored fluid. Patient was discharged home following procedure. At the time of discharge, spironolactone was increased 100 mg twice daily, beta barbara changed to propranolol 80 mg daily and midodrine 10 mg 3 times daily was added. Patient returns to [facility] emergency center yesterday due to abdominal pain and concerns that he was having a GI bleed. He states his abdominal pain has been worsening each day. He does not have any significant ascites at this time. He had one episode of vomiting a couple days ago. Chest and abdominal x-ray showed no acute cardio pulmonary disease. Distended small bowel with air and fluid that could relate to intestinal ileus and appears increased compared to old exam. Do not suspect mechanical bowel obstruction. He has been in the right colon was fairly normal. Patient was afebrile, heart rate 80, blood pressure 102/70, pulse ox 100% on room air. Blood work reveals WBC 4.7, hemoglobin 13.2, platelet count 61. INR 1.4. Sodium 134, potassium 4.6, chloride 95, CO2 29, BUN 30 and creatinine 1.55. Blood sugar 182. Patient does not have history of diabetes. Amylase 119, lipase 339. Patient admitted to the [facility] floor, IV fluids, Zofran and Protonix started. Home medications will be resumed, Lasix on hold. Consults in place for general surgery and GI. Review of Systems Constitutional: Denies chills, Denies fatigue, Denies fever, Denies lethargy, Denies malaise, Denies poor appetite, Denies weakness Eyes: denies blurred vision, denies pain Ears, nose, mouth and throat: Denies headache, Denies sore throat Cardiovascular: Denies chest pain, Denies decreased exercise tolerance, Denies dyspnea on exertion, Denies lightheadedness, Denies shortness of breath, Denies syncope Respiratory: Denies cough, Denies cough with sputum, Denies dyspnea, Denies hemoptysis, Denies home oxygen, Denies respiratory infections, Denies wheezing Gastrointestinal: Reports abdominal pain, Denies BRBPR, Denies diarrhea, Denies melena, Denies nausea, Denies vomiting Genitourinary: Denies dysuria, Denies urinary hesitancy, Denies urinary retention Musculoskeletal: Denies frequent falls, Denies gait dysfunction, Denies muscle weakness, Denies myalgias Integumentary: Denies pruritus, Denies rash, Denies wounds Neurological: Denies numbness, Denies weakness Psychiatric: Denies anxiety, Denies depression Endocrine: Denies fatigue, Denies weight change Past Medical History Past Medical History: GERD/Reflux, GI Bleed, Hypertension, Liver Disease, Thyroid Disorder Additional Past Medical History / Comment(s): Liver cirrhosis, portal htn, ETOH abuse, esophageal varicies, upper GI bleed, chronic thrombocytopenia, coagulopathy, pancytopenia, ascities, spinal stenosis: back/leg and feet pain, DDD, chronic back pain, neuropathy bilateral legs/feet, falls, bronchitis, 2010 Guillian [place], chronic pancreatitis History of Any Multi-Drug Resistant Organisms: None Reported Past Surgical History: Appendectomy, Joint Replacement Additional Past Surgical History / Comment(s): EGDs paracentesis, back injections, R thumb reattachment, circumcism. Past Anesthesia/Blood Transfusion Reactions: No Reported Reaction Additional Past Anesthesia/Blood Transfusion Reaction / Comment(s): Pt has received blood without reaction. Past Psychological History: No Psychological Hx Reported, Depression Additional Psychological History / Comment(s): Pt is on disability. He resides with his mother. He uses a cane to ambulate at times. He drives. Smoking Status: Former smoker Past Alcohol Use History: None Reported, Abuse Additional Past Alcohol Use History / Comment(s): Patient is a smoker of a pack per day for 27 years currently down to a few puffs some days. He denies any marijuana or street drug use. He does have history of heavy alcohol use with drinking up to a pint per day for 7 years but then cut down to only drinking an occasional beer and states he has not drank any alcohol now in months. Past Drug Use History: None Reported - Past Family History Father Family Medical History: Unable to Obtain Additional Family Medical History / Comment(s): Pt does not know his father's medical hx. Mother Family Medical History: No Reported History Additional Family Medical History / Comment(s): Mother is healthy. Brother(s) Additional Family Medical History / Comment(s): Patient has 3 brothers and one suffers from alcohol abuse. 2 brothers have no major medical problems. Patient does not have any sisters. Patient is one daughter 12 years old with no major medical problems. Medications and Allergies Home Medications Medication Instructions Recorded Confirmed Type Levothyroxine Sodium [Synthroid] 25 mcg PO DAILY 05/07/16 06/20/19 History Pantoprazole Sodium [Protonix] 20 mg PO BID 01/02/17 06/20/19 History Rifaximin [Xifaxan] 550 mg PO BID 08/02/18 06/20/19 History Sucralfate [Carafate] 1 gm PO ACHS 09/22/18 06/20/19 History Magnesium Oxide [Mag-Ox] 200 mg PO TID tab 09/24/18 06/20/19 Rx Thiamine [Vitamin B-1] 100 mg PO BID-W/MEALS tab 09/24/18 06/20/19 Rx Lipase/Protease/Amylase [Zenpep Dr 5,000 unit PO AC-TID 10/18/18 06/20/19 History 5,000 Unit Capsule] Multivitamins, Thera [Multivitamin 1 tab PO DAILY 10/18/18 06/20/19 History (formulary)] Vitamin B Complex 1 cap PO DAILY 10/18/18 06/20/19 History Lactulose [Constulose] 20 gm PO QID 03/11/19 06/20/19 History Furosemide [Lasix] 40 mg PO BID@0900,1600 #60 tab 04/04/19 06/20/19 Rx Propranolol LA [Inderal LA] 80 mg PO DAILY #30 cap.sa.24h 06/09/19 06/20/19 Rx Spironolactone [Aldactone] 100 mg PO BID #60 tab 06/09/19 06/20/19 Rx Allergies Allergy/AdvReac Type Severity Reaction Status Date / Time No Known Allergies Allergy Verified 06/20/19 09:45 Physical Exam Vitals: Vital Signs Temp Pulse Pulse Resp BP BP Pulse Ox 06/20/19 04:13 99 F 63 18 109/73 99 06/20/19 03:47 98.8 F 80 18 103/74 100 06/20/19 02:17 98.3 F 80 18 102/70 100 Intake and Output 06/19/19 06/20/19 06/20/19 22:59 06:59 14:59 Intake Total 200 Balance 200 Intake: IV 200 Sodium Chloride 0.9% 1, 200 000 ml @ 100 mls/hr IV . Q10H ONE Rx#:[id number] Other: # Voids 1 Weight 54.885 kg Gen: This is a thin 43-year-old male. Patient is resting in bed and appears to be comfortable and in no acute distress. HEENT: Head is atraumatic, normocephalic. Pupils equal, round. Sclerae is anicteric. NECK: Supple. No JVD. No lymphadenopathy. No thyromegaly. LUNGS: Clear to auscultation. No wheezes or rhonchi. No intercostal retractions. HEART: Regular rate and rhythm. No murmur. ABDOMEN: Soft. Bowel sounds are present. No masses. Mild generalized tenderness. EXTREMITIES: No pedal edema. No calf tenderness. NEUROLOGICAL: Patient is awake, alert and oriented x3. Cranial nerves 2 through 12 are grossly intact. Results CBC & Chem 7: 06/20/19 02:32 06/20/19 02:32 Labs: Abnormal Lab Results - Last 24 Hours (Table) 06/20/19 06/20/19 06/20/19 Range/Units 02:32 02:32 02:32 RBC 4.21 L (4.30-5.90) m/uL RDW 17.1 H (11.5-15.5) % Plt Count 61 L (150-450) k/uL Lymphocytes # 0.4 L (1.0-4.8) k/uL PT 13.8 H (9.0-12.0) sec INR 1.4 H (<1.2) Sodium 134 L (137-145) mmol/L Chloride 95 L (98-107) mmol/L BUN 30 H (9-20) mg/dL Creatinine 1.55 H (0.66-1.25) mg/dL Glucose 182 H (74-99) mg/dL Total Bilirubin 3.5 H (0.2-1.3) mg/dL Ammonia (<30) umol/L Amylase 119 H (30-110) U/L Lipase 339 H (23-300) U/L 06/20/19 Range/Units 02:32 RBC (4.30-5.90) m/uL RDW (11.5-15.5) % Plt Count (150-450) k/uL Lymphocytes # (1.0-4.8) k/uL PT (9.0-12.0) sec INR (<1.2) Sodium (137-145) mmol/L Chloride (98-107) mmol/L BUN (9-20) mg/dL Creatinine (0.66-1.25) mg/dL Glucose (74-99) mg/dL Total Bilirubin (0.2-1.3) mg/dL Ammonia 50 H (<30) umol/L Amylase (30-110) U/L Lipase (23-300) U/L Thrombosis Risk Factor Assmnt - DVT/VTE Prophylaxis DVT/VTE Prophylaxis: Mechanical Prophylaxis ordered Assessment and Plan Plan: 1. Abdominal pain secondary to possible ileus. Consult with GI and general surgery. Continue Zofran as needed for nausea. Diet has been advanced to clear liquids. 2. Acute kidney injury most likely secondary to diuretics. Hold Lasix for today. Continue Aldactone. Repeat lab work in the morning. 3. History of alcoholic liver disease with portal hypertension and previous episodes of acute GI bleed with acute blood loss anemia resulting in multiple hospitalizations for GI bleeding from esophageal varices status post banding. Continue Protonix 40 mg daily and Carafate. Continue Inderal LA 80 mg daily. 4. Frequent hospitalizations for ascites and paracentesis, stable. We will hold Lasix for today. Continue Aldactone 100 mg twice daily. 5. Chronic pancytopenia with severe thrombocytopenia secondary to chronic EtOH related bone marrow damage and portal hypertension causing splenic sequestration. 6. Spinal stenosis with peripheral neuropathy. 7. Tobacco use and dependence. 8. Hypothyroidism. Continue levothyroxine 25 g daily. 9. Recurrent depression. 10. Peripheral neuropathy secondary to alcoholism and spinal stenosis. 11. Gastroesophageal reflux disease and GI prophylaxis. Continue Protonix and Carafate. 12. DVT prophylaxis. No heparin due to thrombocytopenia. SCDs and ANDREEA hose and early ambulation. Patient admitted to the hospital for a minimum of 2 night stay. Discharge plan: Home on Thursday. Impression and plan of care have been directed as dictated by the signing physician. Giovana Kathleen nurse practitioner acting as scribe for signing physician.
[2019-06-20] MEDS: SUCRALFATE 1 GM TAB PO SCH ×3 (13:08→21:20)
[2019-06-20] MEDS: LIPASE 5,000/PROTEASE 17,000/AMYLASE 24,000 PO SCH ×2 (13:09→17:43)
--- NOTE | 2019-06-20 14:45 | P.GSCN ---
History of Present Illness Consult date: 06/20/19 Reason for Consult: ileus Requesting physician: Wilton Bateman History of present illness: CHIEF COMPLAINT: Abdominal pain HISTORY OF PRESENT ILLNESS: 43-year-old male with a history of chronic pancreatitis secondary to alcohol abuse. Patient presented to the hospital with a chief complaint of abdominal pain, nausea, and vomiting. Patient examined at the bedside with Dr. Jose. Patient denies abdominal pain at this time. He is tolerating clear liquid diet. Denies further episodes of vomiting. PAST MEDICAL HISTORY: See list. PAST SURGICAL HISTORY: See list. SOCIAL HISTORY: No illicit drug use. REVIEW OF SYSTEMS: CONSTITUTIONAL: Denies fever or chills. HEENT: Denies blurred vision, vision changes, or eye pain. Denies hemoptysis CARDIOVASCULAR: Denies chest pain or pressure. RESPIRATORY: No shortness of breath. GASTROINTESTINAL: Refer to HPI for pertinent findings HEMATOLOGIC: Denies bleeding disorders. GENITOURINARY: Denies any blood in urine. SKIN: Denies pruitis. Denies rash. PHYSICAL EXAM: VITAL SIGNS: Reviewed. GENERAL: Well-developed in no acute distress. HEENT: No sclera icterus. Extraocular movements grossly intact. Moist buccal mucosa. Head is atraumatic, normocephalic. ABDOMEN: Soft. Nondistended. Nontender. NEUROLOGIC: Alert and oriented. Cranial nerves II through XII grossly intact. LABORATORY DATA: WBC 4.7. Hemoglobin 13.2. Platelet count 61. Amylase 119. Lipase 339. IMAGING: Abdominal x-ray: No acute cardiopulmonary disease. Distended small bowel with air and fluid that could relate to intestinal ileus and appears increased c ompared to old exam. No suspected mechanical bowel obstruction. Gas pattern right colon is fairly normal. ASSESSMENT: 1. Abdominal pain 2. Questionable ileus 3. History of chronic pancreatitis PLAN: -Advance diet -No surgical intervention recommended -Stable for discharge home if tolerates diet. Defer to medicine. Nurse practitioner note has been reviewed by physician. Signing provider agrees with the documented findings, assessment, and plan of care. Past Medical History Past Medical History: GERD/Reflux, GI Bleed, Hypertension, Liver Disease, Thyroid Disorder Additional Past Medical History / Comment(s): Liver cirrhosis, portal htn, ETOH abuse, esophageal varicies, upper GI bleed, chronic thrombocytopenia, coagulopathy, pancytopenia, ascities, spinal stenosis: back/leg and feet pain, DDD, chronic back pain, neuropathy bilateral legs/feet, falls, bronchitis, 2010 Guillian [place], chronic pancreatitis History of Any Multi-Drug Resistant Organisms: None Reported Past Surgical History: Appendectomy, Joint Replacement Additional Past Surgical History / Comment(s): EGDs paracentesis, back injections, R thumb reattachment, circumcism. Past Anesthesia/Blood Transfusion Reactions: No Reported Reaction Additional Past Anesthesia/Blood Transfusion Reaction / Comm: Pt has received blood without reaction. Past Psychological History: No Psychological Hx Reported, Depression Additional Psychological History / Comment(s): Pt is on disability. He resides with his mother. He uses a cane to ambulate at times. He drives. Smoking Status: Former smoker Past Alcohol Use History: None Reported, Abuse Additional Past Alcohol Use History / Comment(s): Patient is a smoker of a pack per day for 27 years currently down to a few puffs some days. He denies any marijuana or street drug use. He does have history of heavy alcohol use with drinking up to a pint per day for 7 years but then cut down to only drinking an occasional beer and states he has not drank any alcohol now in months. Past Drug Use History: None Reported - Past Family History Father Family Medical History: Unable to Obtain Additional Family Medical History / Comment(s): Pt does not know his father's medical hx. Mother Family Medical History: No Reported History Additional Family Medical History / Comment(s): Mother is healthy. Brother(s) Additional Family Medical History / Comment(s): Patient has 3 brothers and one suffers from alcohol abuse. 2 brothers have no major medical problems. Patient does not have any sisters. Patient is one daughter 12 years old with no major medical problems. Medications and Allergies Home Medications Medication Instructions Recorded Confirmed Type Levothyroxine Sodium [Synthroid] 25 mcg PO DAILY 05/07/16 06/20/19 History Pantoprazole Sodium [Protonix] 20 mg PO BID 01/02/17 06/20/19 History Rifaximin [Xifaxan] 550 mg PO BID 08/02/18 06/20/19 History Sucralfate [Carafate] 1 gm PO ACHS 09/22/18 06/20/19 History Magnesium Oxide [Mag-Ox] 200 mg PO TID tab 09/24/18 06/20/19 Rx Thiamine [Vitamin B-1] 100 mg PO BID-W/MEALS tab 09/24/18 06/20/19 Rx Lipase/Protease/Amylase [Zenpep Dr 5,000 unit PO AC-TID 10/18/18 06/20/19 Histor y 5,000 Unit Capsule] Multivitamins, Thera [Multivitamin 1 tab PO DAILY 10/18/18 06/20/19 History (formulary)] Vitamin B Complex 1 cap PO DAILY 10/18/18 06/20/19 History Lactulose [Constulose] 20 gm PO QID 03/11/19 06/20/19 History Furosemide [Lasix] 40 mg PO BID@0900,1600 #60 tab 04/04/19 06/20/19 Rx Propranolol LA [Inderal LA] 80 mg PO DAILY #30 cap.sa.24h 06/09/19 06/20/19 Rx Spironolactone [Aldactone] 100 mg PO BID #60 tab 06/09/19 06/20/19 Rx Allergies Allergy/AdvReac Type Severity Reaction Status Date / Time No Known Allergies Allergy Verified 06/20/19 09:45 Surgical - Exam Vital Signs Temp Pulse Resp BP Pulse Ox 98.3 F 80 18 102/70 100 06/20/19 02:17 06/20/19 02:17 06/20/19 02:17 06/20/19 02:17 06/20/19 02:17 Results - Labs 06/20/19 02:32 06/20/19 02:32 Abnormal Lab Results - Last 24 Hours (Table) 06/20/19 06/20/19 06/20/19 Range/Units 02:32 02:32 02:32 RBC 4.21 L (4.30-5.90) m/uL RDW 17.1 H (11.5-15.5) % Plt Count 61 L (150-450) k/uL Lymphocytes # 0.4 L (1.0-4.8) k/uL PT 13.8 H (9.0-12.0) sec INR 1.4 H (<1.2) Sodium 134 L (137-145) mmol/L Chloride 95 L (98-107) mmol/L BUN 30 H (9-20) mg/dL Creatinine 1.55 H (0.66-1.25) mg/dL Glucose 182 H (74-99) mg/dL POC Glucose (mg/dL) (75-99) mg/dL Total Bilirubin 3.5 H (0.2-1.3) mg/dL Ammonia (<30) umol/L Amylase 119 H (30-110) U/L Lipase 339 H (23-300) U/L 06/20/19 06/20/19 Range/Units 02:32 09:02 RBC (4.30-5.90) m/uL RDW (11.5-15.5) % Plt Count (150-450) k/uL Lymphocytes # (1.0-4.8) k/uL PT (9.0-12.0) sec INR (<1.2) Sodium (137-145) mmol/L Chloride (98-107) mmol/L BUN (9-20) mg/dL Creatinine (0.66-1.25) mg/dL Glucose (74-99) mg/dL POC Glucose (mg/dL) 123 H (75-99) mg/dL Total Bilirubin (0.2-1.3) mg/dL Ammonia 50 H (<30) umol/L Amylase (30-110) U/L Lipase (23-300) U/L Diabetes panel 06/20/19 Range/Units 02:32 Sodium 134 L (137-145) mmol/L Potassium 4.6 (3.5-5.1) mmol/L Chloride 95 L (98-107) mmol/L Carbon Dioxide 29 (22-30) mmol/L BUN 30 H (9-20) mg/dL Creatinine 1.55 H (0.66-1.25) mg/dL Glucose 182 H (74-99) mg/dL Calcium 9.2 (8.4-10.2) mg/dL AST 33 (17-59) U/L ALT 13 (4-49) U/L Alkaline Phosphatase 65 (38-126) U/L Total Protein 7.7 (6.3-8.2) g/dL Albumin 4.1 (3.5-5.0) g/dL Calcium panel 06/20/19 Range/Units 02:32 Calcium 9.2 (8.4-10.2) mg/dL Phosphorus 3.6 (2.5-4.5) mg/dL Albumin 4.1 (3.5-5.0) g/dL Pituitary panel 06/20/19 Range/Units 02:32 Sodium 134 L (137-145) mmol/L Potassium 4.6 (3.5-5.1) mmol/L Chloride 95 L (98-107) mmol/L Carbon Dioxide 29 (22-30) mmol/L BUN 30 H (9-20) mg/dL Creatinine 1.55 H (0.66-1.25) mg/dL Glucose 182 H (74-99) mg/dL Calcium 9.2 (8.4-10.2) mg/dL Adrenal panel 06/20/19 Range/Units 02:32 Sodium 134 L (137-145) mmol/L Potassium 4.6 (3.5-5.1) mmol/L Chloride 95 L (98-107) mmol/L Carbon Dioxide 29 (22-30) mmol/L BUN 30 H (9-20) mg/dL Creatinine 1.55 H (0.66-1.25) mg/dL Glucose 182 H (74-99) mg/dL Calcium 9.2 (8.4-10.2) mg/dL Total Bilirubin 3.5 H (0.2-1.3) mg/dL AST 33 (17-59) U/L ALT 13 (4-49) U/L Alkaline Phosphatase 65 (38-126) U/L Total Protein 7.7 (6.3-8.2) g/dL Albumin 4.1 (3.5-5.0) g/dL
[2019-06-20] MEDS: THIAMINE 100 MG TAB PO SCH (17:42)
--- NOTE | 2019-06-20 18:28 | P.CONS ---
History of Present Illness - Reason for Consult Consult date: 06/20/19 Decompensated cirrhosis Requesting physician: Wilton Bateman - Chief Complaint Abdominal pain, rule out bleed - History of Present Illness 43-year-old male with a known medical history significant for alcoholic liver disease, splenomegaly, alcoholic pancreatitis, chronic thrombocytopenia, previous esophageal varices and portal hypertension who presents to the hospital due to complaints of abdominal pain and possible GI bleed. The patient reports abdominal pain over the past 3-4 days. He previously has been hospitalized for refractory ascites. Since increasing his dose of Lasix and Aldactone the patient reports that he is had decreasing amounts of ascitic fluid removed during the paracentesis. Patient reports that over the past 3-4 days he has been having pain and was worried that due to his problems with thrombocytopenia this may be secondary to a bleed. He denies any change in bowel habits, blood per rectum, melanotic stool, nausea or vomiting, hematemesis or any other signs or symptoms of GI bleeding. He therefore decided to present to the hospital for further evaluation. X-ray of the abdomen showed a mildly distended small bowel however the patient denies any signs or symptoms of ileus or obstruction. Amylase 119, lipase 339, WBC 4.7, hemoglobin 13.2, bili count 61,000, total bilirubin 3.5, alkaline phosphatase 65, AST 33 and ALTs 13. Review of Systems REVIEW OF SYSTEMS: CONSTITUTIONAL: Denies any fevers, chills, weight change or fatigue. CARDIOVASCULAR: Denies any chest pain, palpitations high or low blood pressures RESPIRATORY: Denies any shortness of breath, hemoptysis or cough. GENITOURINARY: No dysuria or hematuria. MUSCULOSKELETAL: No weakness reported. SKIN: Denies any new rashes or lesions, jaundice or pallor. PSYCHIATRIC: Denies any depression or anxiety. NEUROLOGY: Denies headache, denies any new focal deficits. EARS/NOSE/THROAT: No recent hearing change, congestion, nasal discharge or sore throat. EYES: No pain in eyes, discharge or change in vision. GASTROINTESTINAL: As per HPI. Past Medical History Past Medical History: GERD/Reflux, GI Bleed, Hypertension, Liver Disease, Thyroid Disorder Additional Past Medical History / Comment(s): Liver cirrhosis, portal htn, ETOH abuse, esophageal varicies, upper GI bleed, chronic thrombocytopenia, coagulopathy, pancytopenia, ascities, spinal stenosis: back/leg and feet pain, DDD, chronic back pain, neuropathy bilateral legs/feet, falls, bronchitis, 2010 Guillian [place], chronic pancreatitis History of Any Multi-Drug Resistant Organisms: None Reported Past Surgical History: Appendectomy, Joint Replacement Additional Past Surgical History / Comment(s): EGDs paracentesis, back injections, R thumb reattachment, circumcism. Past Anesthesia/Blood Transfusion Reactions: No Reported Reaction Additional Past Anesthesia/Blood Transfusion Reaction / Comm: Pt has received blood without reaction. Past Psychological History: No Psychological Hx Reported, Depression Additional Psychological History / Comment(s): Pt is on disability. He resides with his mother. He uses a cane to ambulate at times. He drives. Smoking Status: Former smoker Past Alcohol Use History: None Reported, Abuse Additional Past Alcohol Use History / Comment(s): Patient is a smoker of a pack per day for 27 years currently down to a few puffs some days. He denies any marijuana or street drug use. He does have history of heavy alcohol use with drinking up to a pint per day for 7 years but then cut down to only drinking an occasional beer and states he has not drank any alcohol now in months. Past Drug Use History: None Reported - Past Family History Father Family Medical History: Unable to Obtain Additional Family Medical History / Comment(s): Pt does not know his father's medical hx. Mother Family Medical History: No Reported History Additional Family Medical History / Comment(s): Mother is healthy. Brother(s) Additional Family Medical History / Comment(s): Patient has 3 brothers and one suffers from alcohol abuse. 2 brothers have no major medical problems. Patient does not have any sisters. Patient is one daughter 12 years old with no major medical problems. Medications and Allergies Home Medications Medication Instructions Recorded Confirmed Type Levothyroxine Sodium [Synthroid] 25 mcg PO DAILY 05/07/16 06/20/19 History Pantoprazole Sodium [Protonix] 20 mg PO BID 01/02/17 06/20/19 History Rifaximin [Xifaxan] 550 mg PO BID 08/02/18 06/20/19 History Sucralfate [Carafate] 1 gm PO ACHS 09/22/18 06/20/19 History Magnesium Oxide [Mag-Ox] 200 mg PO TID tab 09/24/18 06/20/19 Rx Thiamine [Vitamin B-1] 100 mg PO BID-W/MEALS tab 09/24/18 06/20/19 Rx Lipase/Protease/Amylase [Zenpep Dr 5,000 unit PO AC-TID 10/18/18 06/20/19 History 5,000 Unit Capsule] Multivitamins, Thera [Multivitamin 1 tab PO DAILY 10/18/18 06/20/19 History (formulary)] Vitamin B Complex 1 cap PO DAILY 10/18/18 06/20/19 History Lactulose [Constulose] 20 gm PO QID 03/11/19 06/20/19 History Furosemide [Lasix] 40 mg PO BID@0900,1600 #60 tab 04/04/19 06/20/19 Rx Propranolol LA [Inderal LA] 80 mg PO DAILY #30 cap.sa.24h 06/09/19 06/20/19 Rx Spironolactone [Aldactone] 100 mg PO BID #60 tab 06/09/19 06/20/19 Rx Allergies Allergy/AdvReac Type Severity Reaction Status Date / Time No Known Allergies Allergy Verified 06/20/19 09:45 Physical Exam Vitals: Vital Signs Temp Pulse Pulse Resp BP BP Pulse Ox 06/20/19 12:19 98.5 F 59 L 16 113/75 99 06/20/19 04:13 99 F 63 18 109/73 99 06/20/19 03:47 98.8 F 80 18 103/74 100 06/20/19 02:17 98.3 F 80 18 102/70 100 Intake and Output 06/20/19 06/20/19 06/20/19 06:59 14:59 22:59 Intake Total 200 500 Balance 200 500 Intake: IV 200 Sodium Chloride 0.9% 1, 200 000 ml @ 100 mls/hr IV . Q10H ONE Rx#:[id number] Oral 500 Other: Voiding Method Toilet Urinal # Voids 1 2 Weight 54.885 kg 54.885 kg On physical examination, patient appears comfortable in no apparent distress. HEAD: Normocephalic, atraumatic. EYES: No scleral icterus. No conjunctival injection. MOUTH: No lesions, tongue midline. NECK: Trachea midline, no gross abnormalities. CHEST: Clear to auscultation with no wheezing or rhonchi appreciated. HEART: Regular rate and rhythm. ABDOMEN: Soft, mildly tender. Bowel sounds are positive. No organomegaly. No guarding or rigidity. EXTREMITIES: No pedal edema. SKIN: No rashes, no jaundice. NEUROLOGIC: Alert and oriented x3. No focal deficits. Results CBC & Chem 7: 06/20/19 02:32 06/20/19 02:32 Labs: Abnormal Lab Results - Last 24 Hours (Table) 06/20/19 06/20/19 06/20/19 Range/Units 02:32 02:32 02:32 RBC 4.21 L (4.30-5.90) m/uL RDW 17.1 H (11.5-15.5) % Plt Count 61 L (150-450) k/uL Lymphocytes # 0.4 L (1.0-4.8) k/uL PT 13.8 H (9.0-12.0) sec INR 1.4 H (<1.2) Sodium 134 L (137-145) mmol/L Chloride 95 L (98-107) mmol/L BUN 30 H (9-20) mg/dL Creatinine 1.55 H (0.66-1.25) mg/dL Glucose 182 H (74-99) mg/dL POC Glucose (mg/dL) (75-99) mg/dL Total Bilirubin 3.5 H (0.2-1.3) mg/dL Ammonia (<30) umol/L Amylase 119 H (30-110) U/L Lipase 339 H (23-300) U/L 06/20/19 06/20/19 Range/Units 02:32 09:02 RBC (4.30-5.90) m/uL RDW (11.5-15.5) % Plt Count (150-450) k/uL Lymphocytes # (1.0-4.8) k/uL PT (9.0-12.0) sec INR (<1.2) Sodium (137-145) mmol/L Chloride (98-107) mmol/L BUN (9-20) mg/dL Creatinine (0.66-1.25) mg/dL Glucose (74-99) mg/dL POC Glucose (mg/dL) 123 H (75-99) mg/dL Total Bilirubin (0.2-1.3) mg/dL Ammonia 50 H (<30) umol/L Amylase (30-110) U/L Lipase (23-300) U/L Abdominal x-ray: report reviewed (Small bowel series with some distended small bowel with air-fluid level noted) Assessment and Plan (1) Alcoholic cirrhosis of liver Narrative/Plan: 43-year-old male with a known history of decompensated alcoholic cirrhosis with portal hypertensive, varices noted on prior endoscopy, recent problems with refractory ascites currently improved on diuretic therapy and episodes of encephalopathy in the past. On current presentation he comes to the hospital with concerns of her abdominal pain. Patient's concern was that due to his known history of thrombocytopenia he may have a bleed. Hemoglobin however found to be normal at 13.2 on presentation. No signs or symptoms of GI bleed. Ileus however the patient denies any symptoms consistent with this diagnosis. Current Visit: Yes Status: Acute Code(s): K70.30 - ALCOHOLIC CIRRHOSIS OF LIVER WITHOUT ASCITES SNOMED Code(s): 991845276 (2) Abdominal pain Current Visit: No Status: Acute Code(s): R10.9 - UNSPECIFIED ABDOMINAL PAIN SNOMED Code(s): 75822069 Plan: Supportive care Okay for sodium restricted diet Continue lactulose and rifaximin therapy Continue Aldactone Continue propranolol Continue midrodrine Patient will need continued follow-up for titration of diuretic therapy after discharge with the gastroenterology service No plans for endoscopic evaluation at this time Thank you for allowing us to participate in the care of the patient
[2019-06-21] MEDS: MORPHINE SULFATE 4 MG/ML SYRINGE IVP PRN ×3 (02:24→13:24)
[2019-06-21 06:52] LABS: Anisocytosis Slight; MCH 32.3 pg (25.0-35.0); MCHC 33.3 g/dL (31.0-37.0); MCV 96.9 fL (80.0-100.0); Macrocytosis Slight; Mean Platelet Volume 8.2; RBC 3.72 m/uL (4.30-5.90); RDW 17.2 % (11.5-15.5); WBC 2.4 k/uL (3.8-10.6)
[2019-06-21 07:03] LABS: Albumin 3.3 g/dL (3.5-5.0); Calcium 8.9 mg/dL (8.4-10.2); Potassium 4.5 mmol/L (3.5-5.1); Total Bilirubin 2.9 mg/dL (0.2-1.3); Total Protein 6.7 g/dL (6.3-8.2)
[2019-06-21 07:16] LABS: Platelet Count 40 k/uL (150-450)
[2019-06-21] MEDS: MULTIVITAMINS, THERA 1 EACH TAB PO SCH (08:09)
[2019-06-21] MEDS: SPIRONOLACTONE 25 MG TAB PO SCH (08:09)
[2019-06-21] MEDS: SUCRALFATE 1 GM TAB PO SCH ×2 (08:09→13:26)
[2019-06-21] MEDS: THIAMINE 100 MG TAB PO SCH (08:09)
[2019-06-21] MEDS: MAGNESIUM OXIDE 400 MG TAB PO SCH (08:09)
[2019-06-21] MEDS: LEVOTHYROXINE 25 MCG TAB PO SCH (08:09)
[2019-06-21] MEDS: LACTULOSE 20 GM/30 ML CUP PO SCH ×2 (08:10→13:26)
[2019-06-21] MEDS: PANTOPRAZOLE 40 MG/10 ML VIAL IVP SCH (08:11)
[2019-06-21] MEDS: LIPASE 5,000/PROTEASE 17,000/AMYLASE 24,000 PO SCH ×2 (08:13→13:26)
[2019-06-21] MEDS: RIFAXIMIN 550 MG TABLET PO SCH (08:13)
[2019-06-21] MEDS: MIDODRINE 5 MG TAB PO SCH ×2 (08:14→13:26)
[2019-06-21 11:29] VITALS: BP 98/62; PULSE 59; RESP 17; TEMP 98.1
[2019-06-21] MEDS: PROPRANOLOL LA 80 MG CAP.SA.24H PO SCH (13:25)
--- NOTE | 2019-06-21 13:39 | P.DS ---
Providers Date of admission: 06/20/19 03:35 Expected date of discharge: 06/21/19 Attending physician: Wilton Bateman Consults: 06/20/19 06:12 Consult Physician Routine Consulting Provider: Macy Leiva Consult Reason/Comments: advanced Liver failure Do you want consulting provider notified?: Yes 06/20/19 06:13 Consult Physician Routine Consulting Provider: Vinnie Jose Consult Reason/Comments: abd Pain and Ileus Do you want consulting provider notified?: Yes [facility] Course: This is a 43-year-old male patient of Dr. Sarmad Linn. He has history of alcohol liver cirrhosis with portal hypertension and previous GI bleeding, hypertension and gastritis, pancreatitis, spinal stenosis and peripheral neuropathy. Patient also has chronic back pain and was under the care of Dr. Lagunas but violated pain contract and no longer seen by pain management. He is also known to Dr. Ghazal Leiva from previous EGDs in the past finding gastritis consistent with portal gastropathy but no gastric or esophageal varices or active bleeding. He has had multipe admissions for acute GI bleed in Jan 2016, Mar 2016 and Mar 2017. He had admission for right leg abscess requiring I&D in December 2017. Patient has had multiple admissions for acute pancreatitis with worsening ascites. Most recently, hospitalizations have been for ascites and therapeutic paracentesis. His most recent hospitalization was June 07 through June 08 which time he underwent paracentesis with removal of 6.6 L of straw-colored fluid. Patient was discharged home following procedure. At the time of discharge, spironolactone was increased 100 mg twice daily, beta barbara changed to propranolol 80 mg daily and midodrine 10 mg 3 times daily was added. Patient returns to [facility] emergency center yesterday due to abdominal pain and concerns that he was having a GI bleed. He states his abdominal pain has been worsening each day. He does not have any significant ascites at this time. He had one episode of vomiting a couple days ago. Chest and abdominal x-ray showed no acute cardio pulmonary disease. Distended small bowel with air and fluid that could relate to intestinal ileus and appears increased compared to old exam. Do not suspect mechanical bowel obstruction. He has been in the right colon was fairly normal. Patient was afebrile, heart rate 80, blood pressure 102/70, pulse ox 100% on room air. Blood work reveals WBC 4.7, hemoglobin 13.2, platelet count 61. INR 1.4. Sodium 134, potassium 4.6, chloride 95, CO2 29, BUN 30 and creatinine 1.55. Blood sugar 182. Patient does not have history of diabetes. Amylase 119, lipase 339. Patient admitted to the [facility] floor, IV fluids, Zofran and Protonix started. Home medications will be resumed, Lasix on hold. Consults in place for general surgery and GI. 06/20: Patient has been seen by GI with no plan for any intervention and patient can follow up with Dr. Leiva in the office. Patient has been seen by general surgery and diet advanced. Patient is currently on liquid diet this morning we'll ask for a regular diet. If patient tolerates this, patient will be discharged home after breakfast today. Patient has been afebrile, heart rate 59, blood pressure 90/62 and pulse ox 98% on room air. Repeat blood work reveals W BC 2.4, hemoglobin 12, platelet count 40. Sodium 139, BUN/creatinine 29 creatinine 1.39. Patient will be resumed back on Lasix at the time of discharge but only once daily. Patient will be discharged home today in stable condition. Discharge Diagnoses: 1. Abdominal pain and concern for GI bleed which was ruled out. No sign of ileus. 2. Acute kidney injury most likely secondary to diuretics. 3. History of alcoholic liver disease with portal hypertension and previous episodes of acute GI bleed with acute blood loss anemia resulting in multiple hospitalizations for GI bleeding from esophageal varices status post banding. 4. Frequent hospitalizations for ascites and paracentesis, stable. 5. Chronic pancytopenia with severe thrombocytopenia secondary to chronic EtOH related bone marrow damage and portal hypertension causing splenic sequestration. 6. Spinal stenosis with peripheral neuropathy. 7. Tobacco use and dependence. 8. Hypothyroidism. 9. Recurrent depression. 10. Peripheral neuropathy secondary to alcoholism and spinal stenosis. 11. Gastroesophageal reflux disease. Discharge plan: Home on Thursday. Impression and plan of care have been directed as dictated by the signing physician. Giovana Kathleen nurse practitioner acting as scribe for signing physician. Patient Condition at Discharge: Good Plan - Discharge Summary Discharge Rx Participant: No New Discharge Prescriptions: New Midodrine [ProAmatine] 10 mg PO TID@0900,1300,1800 tab Continue Levothyroxine Sodium [Synthroid] 25 mcg PO DAILY Pantoprazole Sodium [Protonix] 20 mg PO BID Rifaximin [Xifaxan] 550 mg PO BID Sucralfate [Carafate] 1 gm PO ACHS Magnesium Oxide [Mag-Ox] 200 mg PO TID tab Thiamine [Vitamin B-1] 100 mg PO BID-W/MEALS tab Vitamin B Complex 1 cap PO DAILY Multivitamins, Thera [Multivitamin (formulary)] 1 tab PO DAILY Lipase/Protease/Amylase [Robert Blunt 5,000 Unit Capsule] 5,000 unit PO AC-TID Lactulose [Constulose] 20 gm PO QID Spironolactone [Aldactone] 100 mg PO BID #60 tab Propranolol LA [Inderal LA] 80 mg PO DAILY #30 cap.sa.24h Changed Furosemide [Lasix] 40 mg PO DAILY #60 tab Discharge Medication List Levothyroxine Sodium [Synthroid] 25 mcg PO DAILY 05/07/16 [History] Pantoprazole Sodium [Protonix] 20 mg PO BID 01/02/17 [History] Rifaximin [Xifaxan] 550 mg PO BID 08/02/18 [History] Sucralfate [Carafate] 1 gm PO ACHS 09/22/18 [History] Magnesium Oxide [Mag-Ox] 200 mg PO TID tab 09/24/18 [Rx] Thiamine [Vitamin B-1] 100 mg PO BID-W/MEALS tab 09/24/18 [Rx] Lipase/Protease/Amylase [Robert Blunt 5,000 Unit Capsule] 5,000 unit PO AC-TID 10/18/18 [History] Multivitamins, Thera [Multivitamin (formulary)] 1 tab PO DAILY 10/18/18 [History] Vitamin B Complex 1 cap PO DAILY 10/18/18 [History] Lactulose [Constulose] 20 gm PO QID 03/11/19 [History] Propranolol LA [Inderal LA] 80 mg PO DAILY #30 cap.sa.24h 06/09/19 [Rx] Spironolactone [Aldactone] 100 mg PO BID #60 tab 06/09/19 [Rx] Furosemide [Lasix] 40 mg PO DAILY #60 tab 06/21/19 [Rx] Midodrine [ProAmatine] 10 mg PO TID@0900,1300,1800 tab 06/21/19 [Rx] Follow up Appointment(s)/Referral(s): Macy Leiva MD [STAFF PHYSICIAN] - 07/06/19 9:00 am (Tele health via phone they will call you for your appointment if they start seeing patient in the office before this appointment they will let you know.) Pablo Linn MD [Primary Care Provider] - 06/27/19 11:30 am (This is an in office appointment.) Patient Instructions/Handouts: Pancreatitis (DC), Cirrhosis (DC)
[2019-06-22] MEDS ORDERED: PANTOPRAZOLE 40 MG TABLET PO SCH (09:00)
== END 2019-06-21 15:21 | disposition home or self-care (01) | DRG 392 ==
LOC: EC 02:11 → 5NMEDONC 03:35
PROVIDERS: ADMIT Internal Medicine Geriatric Medicine; ATTEND Internal Medicine Geriatric Medicine
DX: R10.9 Unspecified abdominal pain (principal); D61.818 Other pancytopenia; F33.9 Major depressive disorder, recurrent, unspecified; K76.6 Portal hypertension; K86.0 Alcohol-induced chronic pancreatitis; N17.9 Acute kidney failure, unspecified; E03.9 Hypothyroidism, unspecified; F10.20 Alcohol dependence, uncomplicated; F17.210 Nicotine dependence, cigarettes, uncomplicated; G62.1 Alcoholic polyneuropathy; G89.29 Other chronic pain; I10 Essential (primary) hypertension; K21.9 Gastro-esophageal reflux disease without esophagitis; K70.30 Alcoholic cirrhosis of liver without ascites; K72.90 Hepatic failure, unspecified without coma; M48.00 Spinal stenosis, site unspecified; T50.2X5A Adverse effect of carbonic-anhydrase inhibitors, benzothiadiazides and other diuretics, initial encounter; Z79.890 Hormone replacement therapy; Z79.899 Other long term (current) drug therapy; Z81.1 Family history of alcohol abuse and dependence; R16.1 Splenomegaly, not elsewhere classified; M54.9 Dorsalgia, unspecified
CPT/HCPCS: 36415; 74022; 80053; 82140; 82150; 83690; 83735; 84100; 85025; 85027; 85610; 85730; 96374; 96375; 99285

== ENCOUNTER 2019-06-27 04:52 | Observation (INO) | payer MEDICARE ==
[2019-06-27] MEDS ORDERED: SODIUM CHLORIDE 0.9% 500 ML 500 ML IV STA (05:14)
[2019-06-27] MEDS ORDERED: ONDANSETRON 4 MG/2 ML VIAL IVP STA (05:14)
[2019-06-27 05:28] LABS: Anisocytosis Slight; Basophils % (A) 1 %; Eosinophils # (A) 0.2 k/uL (0-0.7); Eosinophils % (A) 3 %; HCT 40.7 % (39.0-53.0); Lymphocytes # (A) 0.8 k/uL (1.0-4.8); Lymphocytes % (A) 14 %; MCV 96.7 fL (80.0-100.0); Mean Platelet Volume 7.8; Monocytes # (A) 0.4 k/uL (0-1.0); Monocytes % (A) 7 %; Neutrophils % (A) 75 %; RBC 4.21 m/uL (4.30-5.90); RDW 16.2 % (11.5-15.5); WBC 5.4 k/uL (3.8-10.6)
[2019-06-27 05:34] LABS: Albumin 3.7 g/dL (3.5-5.0); Calcium 8.7 mg/dL (8.4-10.2); Potassium 4.2 mmol/L (3.5-5.1); Total Bilirubin 1.8 mg/dL (0.2-1.3); Total Protein 7.1 g/dL (6.3-8.2)
[2019-06-27 05:36] LABS: INR 1.3 (<1.2); Partial Thromboplastin Time 25.3 sec (22.0-30.0); Prothrombin Time 12.9 sec (9.0-12.0)
[2019-06-27 05:47] LABS: Platelet Count 66 k/uL (150-450)
[2019-06-27] MEDS ORDERED: MORPHINE SULFATE 4 MG/ML SYRINGE IVP STA (05:56)
--- NOTE | 2019-06-27 06:08 | XR ---
EXAM: XR Abdomen, 1 View CLINICAL HISTORY: Abdominal pain. TECHNIQUE: Frontal supine view of the abdomen/pelvis. COMPARISON: No relevant prior studies available. FINDINGS: Gastrointestinal tract: No evidence of bowel obstruction. Organs: No organomegaly or abnormal mass-effect. Bones/joints: No acute abdomen maladies of the bones. Other findings: No pathologic calcifications. IMPRESSION: No acute findings.
--- NOTE | 2019-06-27 06:36 | ED ---
Abdominal Pain HPI - General Chief Complaint: Abdominal Pain Stated Complaint: Abd pain Source: patient Mode of arrival: ambulatory Limitations: no limitations - History of Present Illness Initial Comments: The patient is a 43-year-old male past history of end-stage liver cirrhosis, pancreatitis, portal hypertension and alcohol abuse who presents to the emergency department with reported midepigastric abdominal pain and hematemesis. The patient has a long-standing history of esophageal varices with banding, chronic pancreatitis and liver disease with ascites. States he's been following with Dr. Lieva in office for his symptoms. He was recently hospitalized from the hospital 4 days ago. Reports that over the past 4 days he has had continued hematemesis with bright red blood streaking in his on the. He also reports to continued mid epigastric abdominal pain for which she is not taking any medications at home. Denies any ascites at this time. No fevers or chills. Does admit to nausea. No back or flank pain. There are no alleviating, precipitating or modifying factors - Related Data Home Medications Medication Instructions Recorded Confirmed Levothyroxine Sodium [Synthroid] 25 mcg PO DAILY 05/07/16 06/20/19 Pantoprazole Sodium [Protonix] 20 mg PO BID 01/02/17 06/20/19 Rifaximin [Xifaxan] 550 mg PO BID 08/02/18 06/20/19 Sucralfate [Carafate] 1 gm PO ACHS 09/22/18 06/20/19 Lipase/Protease/Amylase [Zenpep Dr 5,000 unit PO AC-TID 10/18/18 06/20/19 5,000 Unit Capsule] Multivitamins, Thera [Multivitamin 1 tab PO DAILY 10/18/18 06/20/19 (formulary)] Vitamin B Complex 1 cap PO DAILY 10/18/18 06/20/19 Lactulose [Constulose] 20 gm PO QID 03/11/19 06/20/19 Previous Rx's Medication Instructions Recorded Magnesium Oxide [Mag-Ox] 200 mg PO TID tab 09/24/18 Thiamine [Vitamin B-1] 100 mg PO BID-W/MEALS tab 09/24/18 Propranolol LA [Inderal LA] 80 mg PO DAILY #30 cap.sa.24h 06/09/19 Spironolactone [Aldactone] 100 mg PO BID #60 tab 06/09/19 Furosemide [Lasix] 40 mg PO DAILY #60 tab 06/21/19 Midodrine [ProAmatine] 10 mg PO TID@0900,1300,1800 tab 06/21/19 Allergies Allergy/AdvReac Type Severity Reaction Status Date / Time No Known Allergies Allergy Verified 06/27/19 04:57 Review of Systems ROS Statement: Those systems with pertinent positive or pertinent negative responses have been documented in the HPI. ROS Other: All systems not noted in ROS Statement are negative. Past Medical History Past Medical History: GERD/Reflux, GI Bleed, Hypertension, Liver Disease, Thyroid Disorder Additional Past Medical History / Comment(s): Liver cirrhosis, portal htn, ETOH abuse, esophageal varicies, upper GI bleed, chronic thrombocytopenia, coagulopathy, pancytopenia, ascities, spinal stenosis: back/leg and feet pain, DDD, chronic back pain, neuropathy bilateral legs/feet, falls, bronchitis, 2010 [facility] [place], chronic pancreatitis History of Any Multi-Drug Resistant Organisms: None Reported Past Surgical History: Appendectomy, Joint Replacement Additional Past Surgical History / Comment(s): EGDs paracentesis, back injections, R thumb reattachment, circumcism. Past Anesthesia/Blood Transfusion Reactions: No Reported Reaction Additional Past Anesthesia/Blood Transfusion Reaction / Comment(s): Pt has received blood without reaction. Past Psychological History: No Psychological Hx Reported, Depression Smoking Status: Former smoker Past Alcohol Use History: None Reported, Abuse Past Drug Use History: None Reported - Past Family History Father Family Medical History: Unable to Obtain Additional Family Medical History / Comment(s): Pt does not know his father's medical hx. Mother Family Medical History: No Reported History Additional Family Medical History / Comment(s): Mother is healthy. Brother(s) Additional Family Medical History / Comment(s): Patient has 3 brothers and one suffers from alcohol abuse. 2 brothers have no major medical problems. Patient does not have any sisters. Patient is one daughter 12 years old with no major medical problems. General Exam Limitations: no limitations Course Vital Signs 06/27/19 04:53 Temperature 97.9 F Pulse Rate 86 Respiratory 20 Rate Blood Pressure 100/55 O2 Sat by Pulse 100 Oximetry Medical Decision Making - Medical Decision Making Upon arrival the patient was placed into room 3. A thorough history and physical exam was performed. Laboratory studies were conducted. Hemoglobin and platelets are stable at this time. Lipase is elevated at 1285. I Did call discuss results with Dr. Bowie. She does recommend hospital admission. I then discuss case with Dr. Bingham who accepted admission. Patient is awaiting a bed on the floor - Lab Data Result diagrams: 06/27/19 05:10 06/27/19 05:10 Lab Results 06/27/19 06/27/19 06/27/19 Range/Units 05:10 05:10 05:10 WBC 5.4 (3.8-10.6) k/uL RBC 4.21 L (4.30-5.90) m/uL Hgb 13.0 (13.0-17.5) gm/dL Hct 40.7 (39.0-53.0) % MCV 96.7 (80.0-100.0) fL MCH 31.0 (25.0-35.0) pg MCHC 32.0 (31.0-37.0) g/dL RDW 16.2 H (11.5-15.5) % Plt Count 66 L D (150-450) k/uL Neutrophils % 75 % Lymphocytes % 14 % Monocytes % 7 % Eosinophils % 3 % Basophils % 1 % Neutrophils # 4.0 (1.3-7.7) k/uL Lymphocytes # 0.8 L (1.0-4.8) k/uL Monocytes # 0.4 (0-1.0) k/uL Eosinophils # 0.2 (0-0.7) k/uL Basophils # 0.0 (0-0.2) k/uL Manual Slide Review Performed Anisocytosis Slight PT 12.9 H (9.0-12.0) sec INR 1.3 H (<1.2) APTT 25.3 (22.0-30.0) sec Sodium 138 (137-145) mmol/L Potassium 4.2 (3.5-5.1) mmol/L Chloride 104 (98-107) mmol/L Carbon Dioxide 25 (22-30) mmol/L Anion Gap 9 mmol/L BUN 26 H (9-20) mg/dL Creatinine 1.39 H (0.66-1.25) mg/dL Est GFR (CKD-EPI)AfAm 71 (>60 ml/min/1.73 sqM) Est GFR (CKD-EPI)NonAf 62 (>60 ml/min/1.73 sqM) Glucose 161 H (74-99) mg/dL Calcium 8.7 (8.4-10.2) mg/dL Total Bilirubin 1.8 H (0.2-1.3) mg/dL AST 31 (17-59) U/L ALT 13 (4-49) U/L Alkaline Phosphatase 71 (38-126) U/L Ammonia (<30) umol/L Total Protein 7.1 (6.3-8.2) g/dL Albumin 3.7 (3.5-5.0) g/dL Lipase 1285 H (23-300) U/L 06/27/19 Range/Units 05:10 WBC (3.8-10.6) k/uL RBC (4.30-5.90) m/uL Hgb (13.0-17.5) gm/dL Hct (39.0-53.0) % MCV (80.0-100.0) fL MCH (25.0-35.0) pg MCHC (31.0-37.0) g/dL RDW (11.5-15.5) % Plt Count (150-450) k/uL Neutrophils % % Lymphocytes % % Monocytes % % Eosinophils % % Basophils % % Neutrophils # (1.3-7.7) k/uL Lymphocytes # (1.0-4.8) k/uL Monocytes # (0-1.0) k/uL Eosinophils # (0-0.7) k/uL Basophils # (0-0.2) k/uL Manual Slide Review Anisocytosis PT (9.0-12.0) sec INR (<1.2) APTT (22.0-30.0) sec Sodium (137-145) mmol/L Potassium (3.5-5.1) mmol/L Chloride (98-107) mmol/L Carbon Dioxide (22-30) mmol/L Anion Gap mmol/L BUN (9-20) mg/dL Creatinine (0.66-1.25) mg/dL Est GFR (CKD-EPI)AfAm (>60 ml/min/1.73 sqM) Est GFR (CKD-EPI)NonAf (>60 ml/min/1.73 sqM) Glucose (74-99) mg/dL Calcium (8.4-10.2) mg/dL Total Bilirubin (0.2-1.3) mg/dL AST (17-59) U/L ALT (4-49) U/L Alkaline Phosphatase (38-126) U/L Ammonia 59 H (<30) umol/L Total Protein (6.3-8.2) g/dL Albumin (3.5-5.0) g/dL Lipase (23-300) U/L - EKG Data EKG Comments: EKG demonstrates normal sinus rhythm with a ventricular rate of 67. AR interval 132. QRS 86. QTC of [address] depression in V3. No acute ST segment elevations. Disposition Clinical Impression: Nausea & vomiting, Pancytopenia, Alcoholic cirrhosis of liver, Hematemesis Disposition: ADMITTED IP TO THIS HOSP Condition: Stable Is patient prescribed a controlled substance at d/c from ED?: No Referrals: Pablo Linn MD [Primary Care Provider] - 1-2 days Decision to Admit Reason: Admit from EC Decision Date: 06/27/19 Decision Time: 07:42
[2019-06-27] MEDS ORDERED: NALOXONE 0.4 MG/ML 1 ML VIAL IV PRN (07:42)
[2019-06-27] MEDS ORDERED: ONDANSETRON 4 MG/2 ML VIAL IVP PRN (09:57)
--- NOTE | 2019-06-27 10:00 | P.HPIM ---
History of Present Illness H&P Date: 06/27/19 This is a 43-year-old male patient of Dr. Sarmad Linn. He has history of alcohol liver cirrhosis with portal hypertension and previous GI bleeding, hypertension and gastritis, pancreatitis, spinal stenosis and peripheral neuropathy. Patient also has chronic back pain and was under the c are of Dr. Lagunas but violated pain contract and no longer seen by pain management. He is also known to Dr. Ghazal Leiva from previous EGDs in the past finding gastritis consistent with portal gastropathy but no gastric or esophageal varices or active bleeding. He has had multipe admissions for acute GI bleed in Jan 2016, Mar 2016 and Mar 2017. He had admission for right leg abscess requiring I&D in December 2017. Patient has had multiple admissions for acute pancreatitis with worsening ascites. Most recently, hospitalizations have been for ascites and therapeutic paracentesis. His last paracentesis was on June 07 with removal of 6.6 L of straw-colored fluid. The patient was admitted June 19 to the for abdominal pain and he was concerned about a GI bleed and also acute kidney injury. He was seen by GI. His hemoglobin was stable during his stay and he had no signs of GI bleed. No endoscopies were performed. Patient was discharged home with a hemoglobin of 12 and creatinine 1.39, BUN 29. Patient now presents with complaints of vomiting since last Thursday, June 21 and vomiting blood. He also complains of generalized abdominal pain which continues to worsen to the epigastric area. Patient does not have any noticeable ascites at this time. He has had no fever or chills. Patient returns to [facility] emergency [facility] for evaluation. Hemoglobin 13, WBC 5.4 and platelet count 66. INR 1.3. Electrolytes normal, BUN 26 and creatinine 1.39. Blood sugar 161, total bilirubin 1.8, liver function tests normal. Ammonia level 59. Patient was afebrile, heart rate 86, blood pressure 100/55, pulse ox 100% on room air. Coronavirus testing negative. Dr. Lucia Leiva was contacted and she will schedule patient for EGD evaluation tomorrow. Patient placed on the [facility] floor. Review of Systems Constitutional: Denies chills, Denies fatigue, Denies fever, Denies lethargy, Denies malaise, reports poor appetite, Denies weakness Eyes: denies blurred vision, denies pain Ears, nose, mouth and throat: Denies headache, Denies sore throat Cardiovascular: Denies chest pain, Denies decreased exercise tolerance, Denies dyspnea on exertion, Denies lightheadedness, Denies shortness of breath, Denies syncope Respiratory: Denies cough, Denies cough with sputum, Denies dyspnea, Denies hemoptysis, Denies home oxygen, Denies respiratory infections, Denies wheezing Gastrointestinal: Reports abdominal pain, Denies BRBPR, Denies diarrhea, Denies melena, reports nausea, reports vomiting Genitourinary: Denies dysuria, Denies urinary hesitancy, Denies urinary retention Musculoskeletal: Denies frequent falls, Denies gait dysfunction, Denies muscle weakness, Denies myalgias Integumentary: Denies pruritus, Denies rash, Denies wounds Neurological: Denies numbness, Denies weakness Psychiatric: Denies anxiety, Denies depression Endocrine: Denies fatigue, Denies weight change Past Medical History Past Medical History: GERD/Reflux, GI Bleed, Hypertension, Liver Disease, Thyroid Disorder Additional Past Medical History / Comment(s): Liver cirrhosis, portal htn, ETOH abuse, esophageal varicies, upper GI bleed, chronic thrombocytopenia, coagulopathy, pancytopenia, ascities, spinal stenosis: back/leg and feet pain, DDD, chronic back pain, neuropathy bilateral legs/feet, falls, bronchitis, 2010 [facility] [place], chronic pancreatitis History of Any Multi-Drug Resistant Organisms: None Reported Past Surgical History: Appendectomy, Joint Replacement Additional Past Surgical History / Comment(s): EGDs paracentesis, back injections, R thumb reattachment, circumcism. Past Anesthesia/Blood Transfusion Reactions: No Reported Reaction Additional Past Anesthesia/Blood Transfusion Reaction / Comment(s): Pt has received blood without reaction. Past Psychological History: No Psychological Hx Reported, Depression Smoking Status: Former smoker Past Alcohol Use History: None Reported, Abuse Additional Past Alcohol Use History / Comment(s): Patient is a smoker of a pack per day for 27 years currently down to a few puffs some days. He denies any marijuana or street drug use. He does have history of heavy alcohol use with drinking up to a pint per day for 7 years but then cut down to only drinking an occasional beer and states he has not drank any alcohol now in months. Past Drug Use History: None Reported - Past Family History Father Family Medical History: Unable to Obtain Additional Family Medical History / Comment(s): Pt does not know his father's medical hx. Mother Family Medical History: No Reported History Additional Family Medical History / Comment(s): Mother is healthy. Brother(s) Additional Family Medical History / Comment(s): Patient has 3 brothers and one suffers from alcohol abuse. 2 brothers have no major medical problems. Patient does not have any sisters. Patient is one daughter 12 years old with no major medical problems. Medications and Allergies Home Medications Medication Instructions Recorded Confirmed Type Levothyroxine Sodium [Synthroid] 25 mcg PO DAILY 05/07/16 06/20/19 History Pantoprazole Sodium [Protonix] 20 mg PO BID 01/02/17 06/20/19 History Rifaximin [Xifaxan] 550 mg PO BID 08/02/18 06/20/19 History Sucralfate [Carafate] 1 gm PO ACHS 09/22/18 06/20/19 History Magnesium Oxide [Mag-Ox] 200 mg PO TID tab 09/24/18 06/20/19 Rx Thiamine [Vitamin B-1] 100 mg PO BID-W/MEALS tab 09/24/18 06/20/19 Rx Lipase/Protease/Amylase [Zenpep Dr 5,000 unit PO AC-TID 10/18/18 06/20/19 History 5,000 Unit Capsule] Multivitamins, Thera [Multivitamin 1 tab PO DAILY 10/18/18 06/20/19 History (formulary)] Vitamin B Complex 1 cap PO DAILY 10/18/18 06/20/19 History Lactulose [Constulose] 20 gm PO QID 03/11/19 06/20/19 History Propranolol LA [Inderal LA] 80 mg PO DAILY #30 cap.sa.24h 06/09/19 06/20/19 Rx Spironolactone [Aldactone] 100 mg PO BID #60 tab 06/09/19 06/20/19 Rx Furosemide [Lasix] 40 mg PO DAILY #60 tab 06/21/19 06/20/19 Rx Midodrine [ProAmatine] 10 mg PO TID@0900,1300,1800 tab 06/21/19 Rx Allergies Allergy/AdvReac Type Severity Reaction Status Date / Time No Known Allergies Allergy Verified 06/27/19 04:57 Physical Exam Vitals: Vital Signs Temp Pulse Resp BP Pulse Ox 06/27/19 04:53 97.9 F 86 20 100/55 100 Intake and Output 06/26/19 06/27/19 06/27/19 22:59 06:59 14:59 Other: Weight 56.699 kg Gen: This is a thin 43-year-old male. Patient is resting in ER stretcher and appears to be comfortable and in no acute distress. HEENT: Head is atraumatic, normocephalic. Pupils equal, round. Sclerae is anicteric. NECK: Supple. No JVD. No lymphadenopathy. No thyromegaly. LUNGS: Clear to auscultation. No wheezes or rhonchi. No intercostal retractions. HEART: Regular rate and rhythm. No murmur. ABDOMEN: Soft. Bowel sounds are present. No masses. Mild epigastric tenderness. EXTREMITIES: No pedal edema. No calf tenderness. NEUROLOGICAL: Patient is awake, alert and oriented x3. Cranial nerves 2 through 12 are grossly intact. Results CBC & Chem 7: 06/27/19 05:10 06/27/19 05:10 Labs: Abnormal Lab Results - Last 24 Hours (Table) 06/27/19 06/27/19 06/27/19 Range/Units 05:10 05:10 05:10 RBC 4.21 L (4.30-5.90) m/uL RDW 16.2 H (11.5-15.5) % Plt Count 66 L D (150-450) k/uL Lymphocytes # 0.8 L (1.0-4.8) k/uL PT 12.9 H (9.0-12.0) sec INR 1.3 H (<1.2) BUN 26 H (9-20) mg/dL Creatinine 1.39 H (0.66-1.25) mg/dL Glucose 161 H (74-99) mg/dL Total Bilirubin 1.8 H (0.2-1.3) mg/dL Ammonia (<30) umol/L Lipase 1285 H (23-300) U/L 06/27/19 Range/Units 05:10 RBC (4.30-5.90) m/uL RDW (11.5-15.5) % Plt Count (150-450) k/uL Lymphocytes # (1.0-4.8) k/uL PT (9.0-12.0) sec INR (<1.2) BUN (9-20) mg/dL Creatinine (0.66-1.25) mg/dL Glucose (74-99) mg/dL Total Bilirubin (0.2-1.3) mg/dL Ammonia 59 H (<30) umol/L Lipase (23-300) U/L Thrombosis Risk Factor Assmnt - DVT/VTE Prophylaxis DVT/VTE Prophylaxis: Mechanical Prophylaxis ordered Assessment and Plan Plan: 1. Abdominal pain, chronic with concern for acute GI bleed. Consult with GI. Continue Zofran as needed for nausea. Diet has been advanced to clear liquids and nothing by mouth after midnight. Patient is scheduled for EGD tomorrow. 2. Acute kidney injury most likely secondary to diuretics. Creatinine is stable from last admission. Patient is cleared to resume Lasix 40 mg daily tomorrow and continue Aldactone 100 mg twice daily. . 3. History of alcoholic liver disease with portal hypertension and previous episodes of acute GI bleed with acute blood loss anemia resulting in multiple hospitalizations for GI bleeding from esophageal varices status post banding. Continue Protonix 40 mg daily and Carafate. Continue Inderal LA 80 mg daily. 4. Frequent hospitalizations for ascites and paracentesis, stable. We will hold Lasix for today. Continue Aldactone 100 mg twice daily. 5. Chronic pancytopenia with severe thrombocytopenia secondary to chronic EtOH related bone marrow damage and portal hypertension causing splenic sequestration. 6. Spinal stenosis with peripheral neuropathy. 7. Tobacco use and dependence. 8. Hypothyroidism. Continue levothyroxine 25 g daily. 9. Recurrent depression. 10. Peripheral neuropathy secondary to alcoholism and spinal stenosis. 11. Gastroesophageal reflux disease and GI prophylaxis. Continue Protonix and Carafate. 12. DVT prophylaxis. No heparin due to thrombocytopenia. SCDs and ANDREEA hose and early ambulation. Patient admitted to the hospital for a minimum of 2 night stay. Discharge plan: Home on Thursday. Impression and plan of care have been directed as dictated by the signing physician. Giovana Kathleen nurse practitioner acting as scribe for signing physician.
[2019-06-27] MEDS: MORPHINE SULFATE 4 MG/ML SYRINGE IV PRN ×3 (11:22→19:58)
[2019-06-27] MEDS ORDERED: LIDOCAINE 1% (10MG/ML) FOR IV START INTRADERMA PRN (11:40)
[2019-06-27] MEDS ORDERED: LACTATED RINGERS 1,000 ML IV SCH (11:40)
[2019-06-27] MEDS: MIDODRINE 5 MG TAB PO SCH ×2 (12:11→17:31)
[2019-06-27] MEDS: LIPASE 5,000/PROTEASE 17,000/AMYLASE 24,000 PO SCH ×2 (12:11→17:31)
[2019-06-27] MEDS: SUCRALFATE 1 GM TAB PO SCH ×3 (12:11→20:00)
[2019-06-27] MEDS: LACTULOSE 20 GM/30 ML CUP PO SCH ×3 (12:11→20:01)
[2019-06-27] MEDS: MAGNESIUM OXIDE 400 MG TAB PO SCH ×2 (15:38→20:00)
[2019-06-27 16:13] LABS: Anisocytosis Slight; HCT 32.6 % (39.0-53.0); HGB 10.3 gm/dL (13.0-17.5); Hypochromasia Slight; MCH 31.4 pg (25.0-35.0); MCHC 31.6 g/dL (31.0-37.0); MCV 99.4 fL (80.0-100.0); Macrocytosis Slight; Mean Platelet Volume 8.9; RBC 3.28 m/uL (4.30-5.90); RDW 16.1 % (11.5-15.5); WBC 2.8 k/uL (3.8-10.6)
[2019-06-27 16:22] LABS: Platelet Count 31 k/uL (150-450)
[2019-06-27] MEDS: THIAMINE 100 MG TAB PO SCH (17:31)
[2019-06-27] MEDS: PANTOPRAZOLE 40 MG TABLET PO SCH (17:31)
[2019-06-27] MEDS: RIFAXIMIN 550 MG TABLET PO SCH (20:01)
[2019-06-27] MEDS: SPIRONOLACTONE 25 MG TAB PO SCH (20:01)
[2019-06-28] MEDS: MORPHINE SULFATE 4 MG/ML SYRINGE IV PRN ×4 (00:02→11:44)
[2019-06-28] MEDS ORDERED: LEVOTHYROXINE 25 MCG TAB PO SCH (06:30)
[2019-06-28] MEDS: LIPASE 5,000/PROTEASE 17,000/AMYLASE 24,000 PO SCH (07:41)
[2019-06-28] MEDS: THIAMINE 100 MG TAB PO SCH (07:42)
[2019-06-28] MEDS: LACTULOSE 20 GM/30 ML CUP PO SCH (07:42)
[2019-06-28] MEDS: SUCRALFATE 1 GM TAB PO SCH (07:42)
[2019-06-28] MEDS: MAGNESIUM OXIDE 400 MG TAB PO SCH (07:42)
[2019-06-28] MEDS: PANTOPRAZOLE 40 MG TABLET PO SCH (07:42)
[2019-06-28] MEDS: MIDODRINE 5 MG TAB PO SCH (07:42)
[2019-06-28] MEDS: SPIRONOLACTONE 25 MG TAB PO SCH (08:08)
[2019-06-28] MEDS: RIFAXIMIN 550 MG TABLET PO SCH (08:08)
[2019-06-28] MEDS ORDERED: MULTIVITAMINS, THERA 1 EACH TAB PO SCH (09:00)
[2019-06-28] MEDS ORDERED: PROPRANOLOL LA 80 MG CAP.SA.24H PO SCH (09:00)
[2019-06-28] MEDS ORDERED: FUROSEMIDE 40 MG TAB PO SCH (09:00)
[2019-06-28] MEDS ORDERED: NON FORMULARY DRUG (Vitamin B Complex [Vitamin B Complex] 1 CAP) PO SCH (09:00)
[2019-06-28] MEDS ORDERED: PROPOFOL 10 MG/ML 20 ML VIAL IV ONE (10:04)
[2019-06-28] MEDS ORDERED: IV FLUID CONTINUATION 1,000 ML IV ONE (10:07)
--- NOTE | 2019-06-28 10:22 | P.PCN ---
Date of Procedure: 06/28/19 Procedure(s) Performed: BRIEF HISTORY: Patient is a 43-year-old, pleasant, male admitted hospital with nausea vomiting and hematemesis. He noticed small streaks of bright red blood in the emesis for the last 3-4 days duration. He has history of alcoholic cirrhosis of the liver with portal hypertension and refractory ascites. Had prior history of esophageal variceal bleeding for which she underwent an upper endoscopy with variceal ligation in 2018.. PROCEDURE PERFORMED: Esophagogastroduodenoscopy. PREOPERATIVE DIAGNOSIS: Acute upper GI bleed. IV sedation per anesthesia. PROCEDURE: After informed consent was obtained, the patient was brought into the endoscopy unit. IV sedation was administered by Anesthesia under continuous monitoring. Initially the Olympus GIF-140 video endoscope was inserted into the mouth. Esophagus intubated without any difficulty. It was gradually advanced into the stomach and duodenum and carefully examined. The bulb and the second part of the duodenum appeared normal. The scope at this time was withdrawn to the stomach, adequately insufflated with air, and upon careful examination, mucosa of the antrum, body, cardia and the fundus had congested appearing mucosa consistent with mild to moderate portal hypertensive gastropathy. No active bleeding identified. There were no gastric varices seen. The scope was then withdrawn into the esophagus. Small sliding type hiatal hernia noted. The GE junction was located at 39 cm from the incisors. The esophagus appeared normal. There were no erosions or ulcerations seen and the patient tolerated the procedure well. IMPRESSION: 1. Mild to moderate portal hypertensive gastropathy. 2. No evidence of gastric or esophageal varices. RECOMMENDATIONS: The findings of this examination were discussed with the patient. Most likely the recent of bleeding esophageal hypertensive gastropathy. At this time and advance diet as tolerated. He can be discharged home today with outpatient follow-up in 2-3 weeks..
[2019-06-28 10:32] VITALS: BP 101/74; PULSE 64; RESP 15; TEMP 98.1
--- NOTE | 2019-06-28 10:52 | P.DS ---
Providers Date of admission: 06/27/19 07:44 Expected date of discharge: 06/28/19 Attending physician: Wilton Bateman Consults: 06/27/19 07:57 Consult Physician Routine Consulting Provider: Macy Leiva Consult Reason/Comments: acute hematemesis Do you want consulting provider notified?: Yes Primary care physician: [facility] Course: This is a 43-year-old male patient of Dr. Sarmad Linn. He has history of alcohol liver cirrhosis with portal hypertension and previous GI bleeding, hypertension and gastritis, pancreatitis, spinal stenosis and peripheral neuropathy. Patient also has chronic back pain and was under the care of Dr. Lagunas but violated pain contract and no longer seen by pain management. He is also known to Dr. Ghazal Leiva from previous EGDs in the past finding gastritis consistent with portal gastropathy but no gastric or esophageal varices or active bleeding. He has had multipe admissions for acute GI bleed in Jan 2016, Mar 2016 and Mar 2017. He had admission for right leg abscess requiring I&D in December 2017. Patient has had multiple admissions for acute pancreatitis with worsening ascites. Most recently, hospitalizations have been for ascites and therapeutic paracentesis. His last paracentesis was on June 07 with removal of 6.6 L of straw-colored fluid. The patient was admitted June 19 to the for abdominal pain and he was concerned about a GI bleed and also acute kidney injury. He was seen by GI. His hemoglobin was stable during his stay and he had no signs of GI bleed. No endoscopies were performed. Patient was discharged home with a hemoglobin of 12 and creatinine 1.39, BUN 29. Patient now presents with complaints of vomiting since last June 21 and vomiting blood. He also complains of generalized abdominal pain which continues to worsen to the epigastric area. Patient does not have any noticeable ascites at this time. He has had no fever or chills. Patient returns to [facility] emergency center for evaluation. Hemoglobin 13, WBC 5.4 and platelet count 66. INR 1.3. Electrolytes normal, BUN 26 and creatinine 1.39. Blood sugar 161, total bilirubin 1.8, liver function tests normal. Ammonia level 59. Patient was afebrile, heart rate 86, blood pressure 100/55, pulse ox 100% on room air. Coronavirus testing negative. Dr. Lucia Leiva was contacted and she will schedule patient for EGD evaluation tomorrow. [facility]. 06/27: Patient denies having any vomiting. He has not had a bowel movement. Discussed patient's elevated ammonia level and patient does admit to missing some doses of lactulose. Patient encouraged to not miss any lactulose doses in the future. Patient underwent EGD with Dr. Leiva that revealed mild to moderate portal hypertension gastropathy. No evidence of gastric or esophageal varices. Recommendations to advance diet as tolerated and discharge home later today with follow-up in 2-3 weeks. Patient will be discharged home today in stable condition. Discharge diagnoses: 1. Abdominal pain, chronic with concern for acute GI bleed that has been ruled out. 2. Acute kidney injury most likely secondary to diuretics. 3. History of alcoholic liver disease with portal hypertension and previous episodes of acute GI bleed with acute blood loss anemia resulting in multiple hospitalizations for GI bleeding from esophageal varices status post banding. 4. Frequent hospitalizations for ascites and paracentesis, stable. 5. Chronic pancytopenia with severe thrombocytopenia secondary to chronic EtOH related bone marrow damage and portal hypertension causing splenic sequestration. 6. Spinal stenosis with peripheral neuropathy. 7. Tobacco use and dependence. 8. Hypothyroidism. 9. Recurrent depression. 10. Peripheral neuropathy secondary to alcoholism and spinal stenosis. 11. Gastroesophageal reflux disease. Discharge plan: Home on Thursday. Impression and plan of care have been directed as dictated by the signing physician. Giovana Kathleen nurse practitioner acting as scribe for signing physician. Patient Condition at Discharge: Good Plan - Discharge Summary Discharge Rx Participant: Yes New Discharge Prescriptions: Continue Rifaximin [Xifaxan] 550 mg PO DAILY Sucralfate [Carafate] 1 gm PO ACHS Thiamine [Vitamin B-1] 100 mg PO BID-W/MEALS tab Vitamin B Complex 1 cap PO DAILY Multivitamins, Thera [Multivitamin (formulary)] 1 tab PO DAILY Lipase/Protease/Amylase [Zendana Dr 5,000 Unit Capsule] 5,000 unit PO AC-TID Lactulose [Constulose] 20 gm PO QID Midodrine HCl [ProAmatine] 10 mg PO TID Omeprazole 20 mg PO DAILY Magnesium 200 mg PO TID Levothyroxine Sodium [Synthroid] 25 mcg PO DAILY Propranolol HCl [Inderal Xl] 80 mg PO DAILY Spironolactone 100 mg PO BID Changed Furosemide [Lasix] 40 mg PO DAILY #0 Discontinued Metoprolol Tartrate [Lopressor] 25 mg PO BID Discharge Medication List Rifaximin [Xifaxan] 550 mg PO DAILY 08/02/18 [History] Sucralfate [Carafate] 1 gm PO ACHS 09/22/18 [History] Thiamine [Vitamin B-1] 100 mg PO BID-W/MEALS tab 09/24/18 [Rx] Lipase/Protease/Amylase [Zenpep Dr 5,000 Unit Capsule] 5,000 unit PO AC-TID 10/18/18 [History] Multivitamins, Thera [Multivitamin (formulary)] 1 tab PO DAILY 10/18/18 [History] Vitamin B Complex 1 cap PO DAILY 10/18/18 [History] Lactulose [Constulose] 20 gm PO QID 03/11/19 [History] Levothyroxine Sodium [Synthroid] 25 mcg PO DAILY 06/27/19 [History] Magnesium 200 mg PO TID 06/27/19 [History] Midodrine HCl [ProAmatine] 10 mg PO TID 06/27/19 [History] Omeprazole 20 mg PO DAILY 06/27/19 [History] Propranolol HCl [Inderal Xl] 80 mg PO DAILY 06/27/19 [History] Spironolactone 100 mg PO BID 06/27/19 [History] Furosemide [Lasix] 40 mg PO DAILY #0 06/28/19 [Rx] Follow up Appointment(s)/Referral(s): Deb Benedict PAC [REFERRING] - 07/05/19 1:00 pm (With Dr Leiva) Pablo Linn MD [Primary Care Provider] - 07/04/19 11:00 am Discharge Disposition: HOME SELF-CARE
--- NOTE | 2019-06-28 10:55 | CONS ---
CONSULTATION DATE OF SERVICE: 06/28/2019 REASON FOR CONSULTATION: Hematemesis. HISTORY OF PRESENT ILLNESS: The patient is a 43-year-old pleasant white male with history of alcoholic cirrhosis of the liver with portal hypertension, refractory ascites requiring paracentesis on a weekly basis, came into the emergency room complaining of nauseam vomiting since last Thursday. He was having about 1 or 2 episodes of emesis with small streaks of bright red blood in the emesis. He got concerned, he came into the emergency room. His hemoglobin was 11 g/dL. He has prior history of esophageal variceal bleeding in 2018 for which he underwent EGD with variceal ligation. He became concerned about esophageal variceal bleeding and hence came into the emergency room and subsequently admitted to the hospital for further evaluation. The patient denies any abdominal pain. He reports no rectal bleeding or melena. His last paracentesis was on June 07 and 6 L of fluid was removed. PAST MEDICAL HISTORY: Significant for alcoholic cirrhosis of the liver with a prior history of GI bleed, history of recent bleeding, status post EGD in 2018, history of hypertension, hypothyroidism, and chronic pancreatitis. History of alcohol abuse, quit drinking about 7 months ago. PAST SURGICAL HISTORY: Appendectomy, multiple EGDs in the past, paracentesis, back injection, right thumb surgery. MEDICATIONS: At home include levothyroxine, Protonix, Xifaxan, Carafate, magnesium oxide, Zenpep, multivitamin, Consta, Aldactone, Lasix, abdomen, memantine. ALLERGIES: No known allergies. SOCIAL HISTORY: Chronic smoker. Heavy alcohol use as mentioned above. Quit drinking about 7 or 8 months ago. FAMILY HISTORY: Mother healthy, brother alcohol abuse. REVIEW OF SYSTEMS: CARDIOPULMONARY: No chest pain, shortness of breath. : No dysuria or hematuria. MUSCULOSKELETAL: Unremarkable. SKIN: Unremarkable. ENDOCRINE: Unremarkable. PSYCHIATRIC: Unremarkable. NEUROLOGY: Unremarkable. ENT/VISION: Unremarkable. CONSTITUTIONAL: No recent weight loss. No fever, chills, night sweats. PHYSICAL EXAMINATION: He appears comfortable, in no apparent distress. Vital signs are stable. Blood pressure is 121/71, pulse rate is 53, temperature 97.9. HEENT: Examination unremarkable, conjunctivae are pink, sclerae nonicteric, oral cavity no lesions. NECK: No JVD or lymph node enlargement. CHEST: Clear to auscultation. HEART: Regular rate and rhythm. ABDOMEN: Soft. Bowel sounds are positive. No organomegaly, extremities no pedal edema. NEUROLOGIC: Alert and oriented x3. No focal deficits. LABS: From yesterday WBC 4.8, hemoglobin 13, platelets 66,000. BUN and creatinine are 26 and 1.39 respectively. INR is 1.3. Ammonia level was 59. COVID-19 is negative. AST and ALT are 31 and at 13 respectively. T-bilirubin 1.8 and alkaline phosphatase is 59. IMPRESSION: 1. Upper gastrointestinal bleed. The patient had several episodes of nausea and vomiting with small streaks of bright red blood in the emesis. Prior history of esophageal variceal bleeding. Last EGD with variceal ligation was in 2018. Hemoglobin stable at 13 g/dL which is down to 10.3 g/dL today. 2. Refractory ascites requiring paracentesis on a weekly basis, currently on Aldactone 100 mg daily. Last paracentesis was 3 weeks ago. 3. Pancytopenia secondary to underlying chronic liver disease/portal hypertension and hypersplenism. 4. Mild coagulopathy. 5. Slightly elevated BUN and creatinine; possible acute kidney injury from prerenal azotemia. 6. Elevated lipase consistent with chronic relapsing pancreatitis. 7. Hepatic encephalopathy with slightly elevated ammonia level, but clinically he has no altered mental status. RECOMMENDATIONS: 1. Clear liquid diet. 2. Continue with Protonix 40 mg twice daily. 3. Continue Xifaxan as well as lactulose for elevated ammonia level. 4. CBC on a daily basis. 5. We will proceed with an upper endoscopy today. Discussed with him risks, benefits, and complications and he is agreeable to it. Thank you for this consultation. MMODL / IJN: [id number] /
== END 2019-06-28 11:56 | disposition home or self-care (01) ==
LOC: EC 04:52 → 4SSUR 07:44
PROVIDERS: ADMIT Internal Medicine Geriatric Medicine; ATTEND Internal Medicine Geriatric Medicine
DX: G89.29 Other chronic pain (principal); R10.13 Epigastric pain; K92.0 Hematemesis; N17.9 Acute kidney failure, unspecified; K76.6 Portal hypertension; D69.59 Other secondary thrombocytopenia; D61.818 Other pancytopenia; M48.00 Spinal stenosis, site unspecified; G62.1 Alcoholic polyneuropathy; E03.9 Hypothyroidism, unspecified; K21.9 Gastro-esophageal reflux disease without esophagitis; F33.9 Major depressive disorder, recurrent, unspecified; K70.30 Alcoholic cirrhosis of liver without ascites; M54.9 Dorsalgia, unspecified; K31.89 Other diseases of stomach and duodenum; F10.10 Alcohol abuse, uncomplicated; D68.9 Coagulation defect, unspecified; I10 Essential (primary) hypertension; Z03.818 Encounter for observation for suspected exposure to other biological agents ruled out; D73.1 Hypersplenism; K86.1 Other chronic pancreatitis; K72.90 Hepatic failure, unspecified without coma; G57.93 Unspecified mononeuropathy of bilateral lower limbs; F17.210 Nicotine dependence, cigarettes, uncomplicated; Z86.19 Personal history of other infectious and parasitic diseases; Z87.19 Personal history of other diseases of the digestive system; Z87.09 Personal history of other diseases of the respiratory system; Z90.49 Acquired absence of other specified parts of digestive tract; Z81.1 Family history of alcohol abuse and dependence; Z79.890 Hormone replacement therapy; Z79.899 Other long term (current) drug therapy
CPT/HCPCS: 96361; 96374; 96375; 99285; 36415; 93005; 80053; 82140; 83690; 85025; 85027; 85610; 85730; 87635; 74018; 43235; G0378 ×2; J2270 ×2; J2405 ×2; J2704

== ENCOUNTER 2019-07-04 10:46 | Inpatient (IN) | payer MEDICARE ==
[2019-07-04] MEDS ORDERED: SODIUM CHLORIDE 0.9% 500 ML 500 ML IV STA (11:24)
[2019-07-04] MEDS ORDERED: HYDROmorphone 0.5 MG/0.5 ML SYRINGE IVP STA ×2 (11:24→13:30)
--- NOTE | 2019-07-04 11:30 | ED ---
General Adult HPI - General Chief complaint: Abdominal Pain Stated complaint: abdominal pain Time Seen by Provider: 07/04/19 11:11 Source: patient, RN notes reviewed Mode of arrival: ambulatory Limitations: no limitations - History of Present Illness Initial comments: 43-year-old male presents to the emergency department for a chief upper abdominal pain. Patient has a history of end-stage liver cirrhosis, pancreatitis, portal hypertension, alcohol abuse. Patient states this pain feels like his previous episodes of pancreatitis. Patient states that the pain is ongoing for weeks but worsened in the past week. He has had several recent admissions for similar complaints coupled with hematemesis. Patient has not had hematemesis since his last admission.Patient had upper GI scope done 6 days ago in the hospital that showed mild to moderate portal hypertensive gastropathy without evidence of acute gastric or esophageal varices. He has been seen for the same complaint by GI within the past 2 admissions as well. Patient has no other complaints at this time including shortness of breath, chest pain, nausea or vomiting, headache, or visual changes. - Related Data Home Medications Medication Instructions Recorded Confirmed Rifaximin [Xifaxan] 550 mg PO DAILY 08/02/18 07/04/19 Sucralfate [Carafate] 1 gm PO ACHS 09/22/18 07/04/19 Lipase/Protease/Amylase [Zenpep Dr 5,000 unit PO AC-TID 10/18/18 07/04/19 5,000 Unit Capsule] Multivitamins, Thera [Multivitamin 1 tab PO DAILY 10/18/18 07/04/19 (formulary)] Vitamin B Complex 1 cap PO DAILY 10/18/18 07/04/19 Lactulose [Constulose] 20 gm PO QID 03/11/19 07/04/19 Levothyroxine Sodium [Synthroid] 25 mcg PO DAILY 06/27/19 07/04/19 Magnesium 200 mg PO TID 06/27/19 07/04/19 Midodrine HCl [ProAmatine] 10 mg PO TID 06/27/19 07/04/19 Omeprazole 20 mg PO DAILY 06/27/19 07/04/19 Propranolol HCl [Inderal Xl] 80 mg PO DAILY 06/27/19 07/04/19 Furosemide [Lasix] 40 mg PO BID 07/04/19 07/04/19 Spironolactone 100 mg PO BID 07/04/19 07/04/19 Previous Rx's Medication Instructions Recorded Thiamine [Vitamin B-1] 100 mg PO BID-W/MEALS tab 09/24/18 Allergies Allergy/AdvReac Type Severity Reaction Status Date / Time No Known Allergies Allergy Verified 07/04/19 13:52 Review of Systems ROS Statement: Those systems with pertinent positive or pertinent negative responses have been documented in the HPI. ROS Other: All systems not noted in ROS Statement are negative. Past Medical History Past Medical History: GERD/Reflux, GI Bleed, Hypertension, Liver Disease, Thyroid Disorder Additional Past Medical History / Comment(s): Liver cirrhosis, portal htn, ETOH abuse, esophageal varicies, upper GI bleed, chronic thrombocytopenia, coagulopathy, pancytopenia, ascities, spinal stenosis: back/leg and feet pain, DDD, chronic back pain, neuropathy bilateral legs/feet, falls, bronchitis, 2010 [place], chronic pancreatitis History of Any Multi-Drug Resistant Organisms: None Reported Past Surgical History: Appendectomy, Joint Replacement Additional Past Surgical History / Comment(s): EGDs paracentesis, back injections, R thumb reattachment, circumcism. Past Anesthesia/Blood Transfusion Reactions: No Reported Reaction Additional Past Anesthesia/Blood Transfusion Reaction / Comment(s): Pt has rece ived blood without reaction. Past Psychological History: No Psychological Hx Reported, Depression Smoking Status: Former smoker Past Alcohol Use History: None Reported, Abuse Past Drug Use History: None Reported - Past Family History Father Family Medical History: Unable to Obtain Additional Family Medical History / Comment(s): Pt does not know his father's medical hx. Mother Family Medical History: No Reported History Additional Family Medical History / Comment(s): Mother is healthy. Brother(s) Additional Family Medical History / Comment(s): Patient has 3 brothers and one suffers from alcohol abuse. 2 brothers have no major medical problems. Patient does not have any sisters. Patient is one daughter 12 years old with no major medical problems. General Exam Limitations: no limitations General appearance: alert, in no apparent distress Head exam: Present: atraumatic, normocephalic, normal inspection Eye exam: Present: normal appearance, PERRL, EOMI. Absent: scleral icterus, conjunctival injection, periorbital swelling ENT exam: Present: normal exam, mucous membranes moist Neck exam: Present: normal inspection, full ROM. Absent: tenderness, menin gismus, lymphadenopathy Respiratory exam: Present: normal lung sounds bilaterally. Absent: respiratory distress, wheezes, rales, rhonchi, stridor Cardiovascular Exam: Present: regular rate, normal rhythm, normal heart sounds. Absent: systolic murmur, diastolic murmur, rubs, gallop, clicks GI/Abdominal exam: Present: soft, tenderness (Left upper quadrant, epigastric, and right upper quadrant tenderness.), normal bowel sounds. Absent: distended, guarding, rebound, rigid Neurological exam: Present: alert Course Vital Signs 07/04/19 07/04/19 07/04/19 10:58 11:00 12:00 Temperature 98.2 F Pulse Rate 72 Respiratory 20 20 20 Rate Blood Pressure 99/69 O2 Sat by Pulse 100 Oximetry 07/04/19 13:00 Temperature Pulse Rate 61 Respiratory 20 Rate Blood Pressure 117/78 O2 Sat by Pulse 98 Oximetry Medical Decision Making - Medical Decision Making 43-year-old male with a past medical history of end-stage liver cirrhosis, pancreatitis, portal hypertension, alcohol abuse presents for upper abdominal pain. Hemoglobin was found to be stable. INR slightly elevated 1.3. Platelet count 52. CMP shows a total bilirubin of 2.2, lipase 1269. Gallbladder ultrasound shows a lung related gallbladder with dilated common bile duct and positive sonographic Wilson's sign. HIDA scan is recommended to evaluate for acute cholecystitis given the adjacent ascites that may render some gallbladder findings unreliable. There is also a prominent main pancreatic duct. I discussed this case with Dr. Garcia who will except this admission as long as Dr. Jose will except the surgical scar consult given patient's thrombocytopenia and complications with paracentesis in the past. I did discuss this with him and he is comfortable consulting on patient. I will also consult GI on Dr. Garcia's request. Patient will be started on Levaquin and Flagyl. Dr. Garcia does not want HIDA scan ordered. - Lab Data Result diagrams: 07/04/19 11:40 07/04/19 11:40 Lab Results 07/04/19 07/04/19 07/04/19 Range/Units 11:40 11:40 11:40 WBC 4.1 (3.8-10.6) k/uL RBC 3.70 L (4.30-5.90) m/uL Hgb 11.4 L (13.0-17.5) gm/dL Hct 35.2 L (39.0-53.0) % MCV 95.2 (80.0-100.0) fL MCH 30.8 (25.0-35.0) pg MCHC 32.4 (31.0-37.0) g/dL RDW 16.1 H (11.5-15.5) % Plt Count 52 L D (150-450) k/uL Neutrophils % 72 % Lymphocytes % 16 % Monocytes % 7 % Eosinophils % 2 % Basophils % 2 % Neutrophils # 3.0 (1.3-7.7) k/uL Lymphocytes # 0.7 L (1.0-4.8) k/uL Monocytes # 0.3 (0-1.0) k/uL Eosinophils # 0.1 (0-0.7) k/uL Basophils # 0.1 (0-0.2) k/uL Anisocytosis Slight PT 13.0 H (9.0-12.0) sec INR 1.3 H (<1.2) APTT 21.0 L (22.0-30.0) sec Sodium (137-145) mmol/L Potassium (3.5-5.1) mmol/L Chloride (98-107) mmol/L Carbon Dioxide (22-30) mmol/L Anion Gap mmol/L BUN (9-20) mg/dL Creatinine (0.66-1.25) mg/dL Est GFR (CKD-EPI)AfAm (>60 ml/min/1.73 sqM) Est GFR (CKD-EPI)NonAf (>60 ml/min/1.73 sqM) Glucose (74-99) mg/dL Calcium (8.4-10.2) mg/dL Total Bilirubin (0.2-1.3) mg/dL AST (17-59) U/L ALT (4-49) U/L Alkaline Phosphatase (38-126) U/L Ammonia (<30) umol/L Total Protein (6.3-8.2) g/dL Albumin (3.5-5.0) g/dL Amylase (30-110) U/L Lipase (23-300) U/L Urine Color Yellow Urine Appearance Clear (Clear) Urine pH 6.0 (5.0-8.0) Ur Specific Browns 1.011 (1.001-1.035) Urine Protein Negative (Negative) Urine Glucose (UA) Negative (Negative) Urine Ketones Negative (Negative) Urine Blood Negative (Negative) Urine Nitrite Negative (Negative) Urine Bilirubin Negative (Negative) Urine Urobilinogen <2.0 (<2.0) mg/dL Ur Leukocyte Esterase Negative (Negative) Coronavirus (PCR) (Not Detectd) 07/04/19 07/04/19 07/04/19 Range/Units 11:40 11:40 13:00 WBC (3.8-10.6) k/uL RBC (4.30-5.90) m/uL Hgb (13.0-17.5) gm/dL Hct (39.0-53.0) % MCV (80.0-100.0) fL MCH (25.0-35.0) pg MCHC (31.0-37.0) g/dL RDW (11.5-15.5) % Plt Count (150-450) k/uL Neutrophils % % Lymphocytes % % Monocytes % % Eosinophils % % Basophils % % Neutrophils # (1.3-7.7) k/uL Lymphocytes # (1.0-4.8) k/uL Monocytes # (0-1.0) k/uL Eosinophils # (0-0.7) k/uL Basophils # (0-0.2) k/uL Anisocytosis PT (9.0-12.0) sec INR (<1.2) APTT (22.0-30.0) sec Sodium 138 (137-145) mmol/L Potassium 4.5 (3.5-5.1) mmol/L Chloride 105 (98-107) mmol/L Carbon Dioxide 24 (22-30) mmol/L Anion Gap 9 mmol/L BUN 25 H (9-20) mg/dL Creatinine 1.09 (0.66-1.25) mg/dL Est GFR (CKD-EPI)AfAm >90 (>60 ml/min/1.73 sqM) Est GFR (CKD-EPI)NonAf 83 (>60 ml/min/1.73 sqM) Glucose 153 H (74-99) mg/dL Calcium 9.2 (8.4-10.2) mg/dL Total Bilirubin 2.2 H (0.2-1.3) mg/dL AST 31 (17-59) U/L ALT 14 (4-49) U/L Alkaline Phosphatase 66 (38-126) U/L Ammonia 36 H (<30) umol/L Total Protein 7.5 (6.3-8.2) g/dL Albumin 3.8 (3.5-5.0) g/dL Amylase 225 H (30-110) U/L Lipase 1269 H (23-300) U/L Urine Color Urine Appearance (Clear) Urine pH (5.0-8.0) Ur Specific Browns (1.001-1.035) Urine Protein (Negative) Urine Glucose (UA) (Negative) Urine Ketones (Negative) Urine Blood (Negative) Urine Nitrite (Negative) Urine Bilirubin (Negative) Urine Urobilinogen (<2.0) mg/dL Ur Leukocyte Esterase (Negative) Coronavirus (PCR) Not Detected (Not Detectd) Disposition Clinical Impression: Abdominal pain, Hyperbilirubinemia, Acute cholecystitis Disposition: ADMITTED IP TO THIS HOSP Condition: Fair Is patient prescribed a controlled substance at d/c from ED?: No Referrals: Pablo Linn MD [Primary Care Provider] - 1-2 days Time of Disposition: 14:57
[2019-07-04 12:00] LABS: Appearance,Urine Clear (Clear); Bilirubin,Urine Negative (Negative); Blood,Urine Negative (Negative); Color,Urine Yellow; Glucose,Urine (UA) Negative (Negative); Ketones,Urine Negative (Negative); Leukocyte Esterase,Urine Negative (Negative); Nitrite,Urine Negative (Negative); Protein,Urine Negative (Negative); Specific Gravity,Urine 1.011 (1.001-1.035); Urobilinogen,Urine <2.0 mg/dL (<2.0)
[2019-07-04 12:02] LABS: Anisocytosis Slight; Basophils # (A) 0.1 k/uL (0-0.2); Basophils % (A) 2 %; Eosinophils # (A) 0.1 k/uL (0-0.7); Eosinophils % (A) 2 %; HCT 35.2 % (39.0-53.0); HGB 11.4 gm/dL (13.0-17.5); Lymphocytes # (A) 0.7 k/uL (1.0-4.8); Lymphocytes % (A) 16 %; MCH 30.8 pg (25.0-35.0); MCHC 32.4 g/dL (31.0-37.0); MCV 95.2 fL (80.0-100.0); Mean Platelet Volume 8.5; Monocytes # (A) 0.3 k/uL (0-1.0); Monocytes % (A) 7 %; Neutrophils % (A) 72 %; RDW 16.1 % (11.5-15.5); WBC 4.1 k/uL (3.8-10.6)
[2019-07-04 12:09] LABS: Platelet Count 52 k/uL (150-450)
[2019-07-04 12:14] LABS: INR 1.3 (<1.2)
[2019-07-04 12:19] LABS: ALT 14 U/L (4-49); AST 31 U/L (17-59); African American GFR (CKD) >90 (>60 ml/min/1.73 sqM); Albumin 3.8 g/dL (3.5-5.0); Alkaline Phosphatase 66 U/L (38-126); Amylase 225 U/L (30-110); Anion Gap 9 mmol/L; Blood Urea Nitrogen 25 mg/dL (9-20); Calcium 9.2 mg/dL (8.4-10.2); Carbon Dioxide 24 mmol/L (22-30); Chloride 105 mmol/L (98-107); Glucose 153 mg/dL (74-99); Non-African American GFR(CKD) 83 (>60 ml/min/1.73 sqM); Potassium 4.5 mmol/L (3.5-5.1); Sodium 138 mmol/L (137-145); Total Bilirubin 2.2 mg/dL (0.2-1.3); Total Protein 7.5 g/dL (6.3-8.2)
[2019-07-04] MEDS ORDERED: ONDANSETRON 4 MG/2 ML VIAL IVP STA (12:30)
--- NOTE | 2019-07-04 12:31 | XR ---
EXAMINATION TYPE: XR KUB portable DATE OF EXAM: 07/04/2019 12:03 PM CLINICAL HISTORY: Abdominal pain. Pancreatitis with history of liver disease. TECHNIQUE: Single supine KUB image of the abdomen is obtained. COMPARISON: 06/27/2019. FINDINGS: There is a trace right pleural effusion otherwise lung bases are well aerated. Air is scatt ered throughout nondilated large and small bowel. Mild degenerative change of the spine and hips. Lalo cifications of the pancreas relate to chronic pancreatitis in this patient with known prior pancreati tis. IMPRESSION: 1. Nonobstructive bowel gas pattern. 2. Calcifications of the pancreas of chronic pancreatitis.
--- NOTE | 2019-07-04 13:23 | US ---
EXAMINATION TYPE: US gallbladder DATE OF EXAM: 07/04/2019 COMPARISON: CT & US 2019 CLINICAL HISTORY: pain epigastric. Epigastric pain EXAM MEASUREMENTS: Liver Length: 18.8 cm Gallbladder Wall: 0.2 cm CBD: 1.4 cm Right Kidney: 8.5 x 4.4 x 4.1 cm Pancreas: limited by overlying midline bowel gas, mildly dilated duct measuring 3 mm. Liver: enlarged, mildly heterogeneous, nodular contour. Cirrhotic morphology. Gallbladder: wnl Evidence for sonographic Wilson's sign: yes CBD: dilated Right Kidney: wnl Abdominal ascites Spleen: enlarged IMPRESSION: 1. Cirrhotic morphology of the liver with sequela portal venous hypertension and abdominal ascites. 2. Elongated gallbladder with dilated common bile duct and positive sonographic Wilson sign. HIDA sca n is recommended to evaluate for acute cholecystitis given the adjacent ascites and hepatocellular di sease that may render some gallbladder findings unreliable. 3. Prominent main pancreatic duct. This could be further evaluated with MRCP.
[2019-07-04] MEDS ORDERED: NALOXONE 0.4 MG/ML 1 ML VIAL IV PRN (14:57)
[2019-07-04] MEDS ORDERED: ONDANSETRON 4 MG/2 ML VIAL IVP PRN (14:57)
[2019-07-04] MEDS ORDERED: LEVOFLOXACIN 750MG-D5W PMX 750 MG in DEXTROSE/WATER 1 150ML.BAG IVPB STA (14:59)
[2019-07-04] MEDS ORDERED: metroNIDAZOLE-NS PMX 500 MG in SALINE 1 100ML.BAG IVPB STA (15:00)
[2019-07-04] MEDS: SODIUM CHLORIDE 0.9% 1,000 ML IV SCH (16:16)
[2019-07-04] MEDS: HYDROmorphone 0.5 MG/0.5 ML SYRINGE IVP PRN ×2 (18:11→21:18)
[2019-07-04] MEDS: metroNIDAZOLE-NS PMX 500 MG in SALINE 1 100ML.BAG IVPB SCH (21:24)
[2019-07-05] MEDS: HYDROmorphone 0.5 MG/0.5 ML SYRINGE IVP PRN ×8 (00:15→22:56)
[2019-07-05] MEDS: metroNIDAZOLE-NS PMX 500 MG in SALINE 1 100ML.BAG IVPB SCH ×3 (07:19→21:28)
--- NOTE | 2019-07-05 10:57 | P.GSCN ---
History of Present Illness Consult date: 07/05/19 Reason for Consult: abdominal pain Requesting physician: Pacheco Gee History of present illness: CHIEF COMPLAINT: Abdominal pain HISTORY OF PRESENT ILLNESS: 43-year-old male with a history of chronic pancreatitis secondary to alcohol abuse. Patient presented to the hospital with a chief complaint of abdominal pain. Patient examined at the bedside this morning. He reports mid epigastric and right upper quadrant pain. He denies nausea or vomiting this morning. Patient reports he has not consumed alcohol in approximately one year. He is asking if he can be discharged home today. PAST MEDICAL HISTORY: See list. PAST SURGICAL HISTORY: See list. SOCIAL HISTORY: No illicit drug use. History of alcohol abuse. REVIEW OF SYSTEMS: CONSTITUTIONAL: Denies fever or chills. HEENT: Denies blurred vision, vision changes, or eye pain. Denies hemoptysis CARDIOVASCULAR: Denies chest pain or pressure. RESPIRATORY: No shortness of breath. GASTROINTESTINAL: Refer to HPI for pertinent findings HEMATOLOGIC: Denies bleeding disorders. GENITOURINARY: Denies any blood in urine. SKIN: Denies pruitis. Denies rash. PHYSICAL EXAM: VITAL SIGNS: Reviewed. GENERAL: Well-developed in no acute distress. HEENT: No sclera icterus. Extraocular movements grossly intact. Moist buccal mucosa. Head is atraumatic, normocephalic. ABDOMEN: Soft. Nondistended. Minimal tenderness with palpation. NEUROLOGIC: Alert and oriented. Cranial nerves II through XII grossly intact. LABORATORY DATA: WBC 4.1. Hemoglobin 11.4. Platelet count 52. Amylase 225. Lipase 1269. Bilirubin 2.2. AST 31. ALT 14. IMAGING: Gallbladder ultrasound: Cirrhotic morphology of the liver with sequelae of portal venous hypertension and abdominal ascites. Elongated gallbladder with dilated common bile duct and positive sonographic Wilson's sign. ASSESSMENT: 1. Abdominal pain 2. Acute on chronic pancreatitis PLAN: -Begin clear liquid diet. Advance as tolerated -GI on consult. Await evaluation -Abnormalities of gallbladder visualized on ultrasound appear to be chronic in nature. Not suggestive of acute cholecystitis. No surgical intervention is recommended at this time. Nurse practitioner note has been reviewed by physician. Signing provider agrees with the documented findings, assessment, and plan of care. Past Medical History Past Medical History: GERD/Reflux, GI Bleed, Hypertension, Liver Disease, Thyroid Disorder Additional Past Medical History / Comment(s): Liver cirrhosis, portal htn, ETOH abuse, esophageal varicies, upper GI bleed, chronic thrombocytopenia, coagulopathy, pancytopenia, ascities, spinal stenosis: back/leg and feet pain, DDD, chronic back pain, neuropathy bilateral legs/feet, falls, bronchitis, 2010 [facility] [place], chronic pancreatitis History of Any Multi-Drug Resistant Organisms: None Reported Past Surgical History: Appendectomy, Joint Replacement Additional Past Surgical History / Comment(s): EGDs paracentesis, back injections, R thumb reattachment, circumcism. Past Anesthesia/Blood Transfusion Reactions: No Reported Reaction Additional Past Anesthesia/Blood Transfusion Reaction / Comm: Pt has received blood without reaction. Past Psychological History: No Psychological Hx Reported, Depression Additional Psychological History / Comment(s): Pt is on disability. He resides with his mother. He uses a cane to ambulate at times. He drives. Smoking Status: Former smoker Past Alcohol Use History: None Reported, Abuse Additional Past Alcohol Use History / Comment(s): Patient is a smoker of a pack per day for 27 years currently down to a few puffs some days. He denies any marijuana or street drug use. He does have history of heavy alcohol use with drinking up to a pint per day for 7 years but then cut down to only drinking an occasional beer and states he has not drank any alcohol now in months. Past Drug Use History: None Reported - Past Family History Father Family Medical History: Unable to Obtain Additional Family Medical History / Comment(s): Pt does not know his father's medical hx. Mother Family Medical History: No Reported History Additional Family Medical History / Comment(s): Mother is healthy. Brother(s) Additional Family Medical History / Comment(s): Patient has 3 brothers and one suffers from alcohol abuse. 2 brothers have no major medical problems. Patient does not have any sisters. Patient is one daughter 12 years old with no major medical problems. Medications and Allergies Home Medications Medication Instructions Recorded Confirmed Type Rifaximin [Xifaxan] 550 mg PO DAILY 08/02/18 07/04/19 History Sucralfate [Carafate] 1 gm PO ACHS 09/22/18 07/04/19 History Thiamine [Vitamin B-1] 100 mg PO BID-W/MEALS tab 09/24/18 07/04/19 Rx Lipase/Protease/Amylase [Zenpep Dr 5,000 unit PO AC-TID 10/18/18 07/04/19 History 5,000 Unit Capsule] Multivitamins, Thera [Multivitamin 1 tab PO DAILY 10/18/18 07/04/19 History (formulary)] Vitamin B Complex 1 cap PO DAILY 10/18/18 07/04/19 History Lactulose [Constulose] 20 gm PO QID 03/11/19 07/04/19 History Levothyroxine Sodium [Synthroid] 25 mcg PO DAILY 06/27/19 07/04/19 History Magnesium 200 mg PO TID 06/27/19 07/04/19 History Midodrine HCl [ProAmatine] 10 mg PO TID 06/27/19 07/04/19 History Omeprazole 20 mg PO DAILY 06/27/19 07/04/19 History Propranolol HCl [Inderal Xl] 80 mg PO DAILY 06/27/19 07/04/19 History Furosemide [Lasix] 40 mg PO BID 07/04/19 07/04/19 History Spironolactone 100 mg PO BID 07/04/19 07/04/19 History Allergies Allergy/AdvReac Type Severity Reaction Status Date / Time No Known Allergies Allergy Verified 07/04/19 13:52 Surgical - Exam Vital Signs Temp Pulse Resp BP Pulse Ox 98.2 F 72 20 99/69 100 07/04/19 10:58 07/04/19 10:58 07/04/19 10:58 07/04/19 10:58 07/04/19 10:58 Results - Labs 07/04/19 11:40 07/04/19 11:40 Abnormal Lab Results - Last 24 Hours (Table) 07/04/19 07/04/19 07/04/19 Range/Units 11:40 11:40 11:40 RBC 3.70 L (4.30-5.90) m/uL Hgb 11.4 L (13.0-17.5) gm/dL Hct 35.2 L (39.0-53.0) % RDW 16.1 H (11.5-15.5) % Plt Count 52 L D (150-450) k/uL Lymphocytes # 0.7 L (1.0-4.8) k/uL PT 13.0 H (9.0-12.0) sec INR 1.3 H (<1.2) APTT 21.0 L (22.0-30.0) sec BUN 25 H (9-20) mg/dL Glucose 153 H (74-99) mg/dL Magnesium (1.6-2.3) mg/dL Total Bilirubin 2.2 H (0.2-1.3) mg/dL Ammonia (<30) umol/L Amylase 225 H (30-110) U/L Lipase 1269 H (23-300) U/L 07/04/19 07/05/19 Range/Units 11:40 07:59 RBC (4.30-5.90) m/uL Hgb (13.0-17.5) gm/dL Hct (39.0-53.0) % RDW (11.5-15.5) % Plt Count (150-450) k/uL Lymphocytes # (1.0-4.8) k/uL PT (9.0-12.0) sec INR (<1.2) APTT (22.0-30.0) sec BUN (9-20) mg/dL Glucose (74-99) mg/dL Magnesium 1.4 L (1.6-2.3) mg/dL Total Bilirubin (0.2-1.3) mg/dL Ammonia 36 H (<30) umol/L Amylase (30-110) U/L Lipase (23-300) U/L Diabetes panel 07/04/19 Range/Units 11:40 Sodium 138 (137-145) mmol/L Potassium 4.5 (3.5-5.1) mmol/L Chloride 105 (98-107) mmol/L Carbon Dioxide 24 (22-30) mmol/L BUN 25 H (9-20) mg/dL Creatinine 1.09 (0.66-1.25) mg/dL Glucose 153 H (74-99) mg/dL Calcium 9.2 (8.4-10.2) mg/dL AST 31 (17-59) U/L ALT 14 (4-49) U/L Alkaline Phosphatase 66 (38-126) U/L Total Protein 7.5 (6.3-8.2) g/dL Albumin 3.8 (3.5-5.0) g/dL Calcium panel 07/04/19 Range/Units 11:40 Calcium 9.2 (8.4-10.2) mg/dL Albumin 3.8 (3.5-5.0) g/dL Pituitary panel 07/04/19 Range/Units 11:40 Sodium 138 (137-145) mmol/L Potassium 4.5 (3.5-5.1) mmol/L Chloride 105 (98-107) mmol/L Carbon Dioxide 24 (22-30) mmol/L BUN 25 H (9-20) mg/dL Creatinine 1.09 (0.66-1.25) mg/dL Glucose 153 H (74-99) mg/dL Calcium 9.2 (8.4-10.2) mg/dL Adrenal panel 07/04/19 Range/Units 11:40 Sodium 138 (137-145) mmol/L Potassium 4.5 (3.5-5.1) mmol/L Chloride 105 (98-107) mmol/L Carbon Dioxide 24 (22-30) mmol/L BUN 25 H (9-20) mg/dL Creatinine 1.09 (0.66-1.25) mg/dL Glucose 153 H (74-99) mg/dL Calcium 9.2 (8.4-10.2) mg/dL Total Bilirubin 2.2 H (0.2-1.3) mg/dL AST 31 (17-59) U/L ALT 14 (4-49) U/L Alkaline Phosphatase 66 (38-126) U/L Total Protein 7.5 (6.3-8.2) g/dL Albumin 3.8 (3.5-5.0) g/dL
[2019-07-05 11:47] VITALS: BMI 18.5
[2019-07-05] MEDS: SUCRALFATE 1 GM TAB PO SCH ×3 (12:09→21:28)
[2019-07-05] MEDS: LACTULOSE 20 GM/30 ML CUP PO SCH ×3 (12:09→21:29)
[2019-07-05] MEDS: MAGNESIUM SULFATE-D5W PMX 1 GM in DEXTROSE/WATER 1 100ML.BAG IVPB SCH ×3 (12:09→16:35)
[2019-07-05] MEDS ORDERED: LIPASE 5,000/PROTEASE 17,000/AMYLASE 24,000 PO SCH (12:30)
[2019-07-05] MEDS: LEVOTHYROXINE 25 MCG TAB PO SCH (12:41)
[2019-07-05] MEDS: LIPASE 5,000/PROTEASE 17,000/AMYLASE 24,000 PO SCH ×2 (12:41→16:53)
--- NOTE | 2019-07-05 14:30 | P.HPIM ---
History of Present Illness H&P Date: 07/05/19 Chief Complaint: Upper abdominal pain This is a 43-year-old male patient of Dr. Sarmad Linn. He has history of alcohol liver cirrhosis with portal hypertension and previous GI bleeding, hypertension and gastritis, pancreatitis, spinal stenosis and peripheral neuropathy. Patient also has chronic back pain and was under the care of Dr. Lagunas but violated pain contract and no longer seen by pain management. He is also known to Dr. Ghazal Leiva from previous EGDs in the past finding gastritis consistent with portal gastropathy but no gastric or esophageal varices or active bleeding. He has had multipe admissions for acute GI bleed in Jan 2016, Mar 2016 and Mar 2017. He had admission for right leg abscess requiring I&D in December 2017. Patient has had multiple admissions for acute pancreatitis with worsening ascites. Most recently, hospitalizations have been for ascites and therapeutic paracentesis. His last paracentesis was on June 07 with removal of 6.6 L of straw-colored fluid. Patient had recent admission for acute kidney injury and concern for acute GI bleed. Patient underwent EGD with Dr. Leiva on 06/27 that revealed mild to moderate portal hypertension gastropathy. No evidence of gastric or esophageal varices. Recommendations to advance diet as tolerated and discharge home later today with follow-up in 2-3 weeks. Patient returns to [facility] emergency center for evaluation. Hemoglobin 11.4, WBC 4.1 and platelet count 52. INR 1.3. Electrolytes normal, BUN 25 and creatinine 1.09. Blood sugar 153, total bilirubin 2.2, liver function tests normal. Ammonia level 36. Amylase 225 and lipase 1269. Urinalysis negative. Coronavirus testing negative. Patient was afebrile, heart rate 72, blood pressure 99/69, pulse ox 100% on room air. Abdominal ultrasound revealed cirrhotic morphology of the liver with sequelae portal venous hypertension and abdominal ascites. Elongated gallbladder with dilated common bile duct and positive Wilson sign. HIDA scan is recommended to evaluate for acute cholecystitis. Prominent main pancreatic duct this could be further evaluated with MRCP. Patient admitted to the [facility] floor and consults with GI and general surgery. Patient started on Levaquin and Flagyl. Review of Systems Constitutional: Denies chills, Denies fatigue, Denies fever, Denies lethargy, Denies malaise, reports poor appetite, Denies weakness Eyes: denies blurred vision, denies pain Ears, nose, mouth and throat: Denies headache, Denies sore throat Cardiovascular: Denies chest pain, Denies decreased exercise tolerance, Denies dyspnea on exertion, Denies lightheadedness, Denies shortness of breath, Denies syncope Respiratory: Denies cough, Denies cough with sputum, Denies dyspnea, Denies hemoptysis, Denies home oxygen, Denies respiratory infections, Denies wheezing Gastrointestinal: Reports abdominal pain, Denies BRBPR, Denies diarrhea, Denies melena, reports nausea, reports vomiting Genitourinary: Denies dysuria, Denies urinary hesitancy, Denies urinary retention Musculoskeletal: Denies frequent falls, Denies gait dysfunction, Denies muscle weakness, Denies myalgias Integumentary: Denies pruritus, Denies rash, Denies wounds Neurological: Denies numbness, Denies weakness Psychiatric: Denies anxiety, Denies depression Endocrine: Denies fatigue, Denies weight change Past Medical History Past Medical History: GERD/Reflux, GI Bleed, Hypertension, Liver Disease, Thyroid Disorder Additional Past Medical History / Comment(s): Liver cirrhosis, portal htn, ETOH abuse, esophageal varicies, upper GI bleed, chronic thrombocytopenia, coagulopathy, pancytopenia, ascities, spinal stenosis: back/leg and feet pain, DDD, chronic back pain, neuropathy bilateral legs/feet, falls, bronchitis, 2010 [facility] [place], chronic pancreatitis History of Any Multi-Drug Resistant Organisms: None Reported Past Surgical History: Appendectomy, Joint Replacement Additional Past Surgical History / Comment(s): EGDs paracentesis, back injectio ns, R thumb reattachment, circumcism. Past Anesthesia/Blood Transfusion Reactions: No Reported Reaction Additional Past Anesthesia/Blood Transfusion Reaction / Comment(s): Pt has received blood without reaction. Past Psychological History: No Psychological Hx Reported, Depression Additional Psychological History / Comment(s): Pt is on disability. He resides with his mother. He uses a cane to ambulate at times. He drives. Smoking Status: Former smoker Past Alcohol Use History: None Reported, Abuse Additional Past Alcohol Use History / Comment(s): Patient is a smoker of a pack per day for 27 years currently down to a few puffs some days. He denies any marijuana or street drug use. He does have history of heavy alcohol use with drinking up to a pint per day for 7 years but then cut down to only drinking an occasional beer and states he has not drank any alcohol now in months. Past Drug Use History: None Reported - Past Family History Father Family Medical History: Unable to Obtain Additional Family Medical History / Comment(s): Pt does not know his father's medical hx. Mother Family Medical History: No Reported History Additional Family Medical History / Comment(s): Mother is healthy. Brother(s) Additional Family Medical History / Comment(s): Patient has 3 brothers and one suffers from alcohol abuse. 2 brothers have no major medical problems. Patient does not have any sisters. Patient is one daughter 12 years old with no major medical problems. Medications and Allergies Home Medications Medication Instructions Recorded Confirmed Type Rifaximin [Xifaxan] 550 mg PO DAILY 08/02/18 07/04/19 History Sucralfate [Carafate] 1 gm PO ACHS 09/22/18 07/04/19 History Thiamine [Vitamin B-1] 100 mg PO BID-W/MEALS tab 09/24/18 07/04/19 Rx Lipase/Protease/Amylase [Zenpep Dr 5,000 unit PO AC-TID 10/18/18 07/04/19 History 5,000 Unit Capsule] Multivitamins, Thera [Multivitamin 1 tab PO DAILY 10/18/18 07/04/19 History (formulary)] Vitamin B Complex 1 cap PO DAILY 10/18/18 07/04/19 History Lactulose [Constulose] 20 gm PO QID 03/11/19 07/04/19 History Levothyroxine Sodium [Synthroid] 25 mcg PO DAILY 06/27/19 07/04/19 History Magnesium 200 mg PO TID 06/27/19 07/04/19 History Midodrine HCl [ProAmatine] 10 mg PO TID 06/27/19 07/04/19 History Omeprazole 20 mg PO DAILY 06/27/19 07/04/19 History Propranolol HCl [Inderal Xl] 80 mg PO DAILY 06/27/19 07/04/19 History Furosemide [Lasix] 40 mg PO BID 07/04/19 07/04/19 History Spironolactone 100 mg PO BID 07/04/19 07/04/19 History Allergies Allergy/AdvReac Type Severity Reaction Status Date / Time No Known Allergies Allergy Verified 07/04/19 13:52 Physical Exam Vitals: Vital Signs Temp Pulse Pulse Resp BP BP Pulse Ox 07/05/19 04:57 97.5 F L 63 16 97/64 95 07/04/19 19:20 98 F 65 18 115/65 99 07/04/19 18:16 64 20 95/75 98 07/04/19 18:00 64 20 95/75 98 07/04/19 17:00 20 95/68 07/04/19 16:30 112/81 07/04/19 16:00 20 120/76 98 07/04/19 15:30 109/80 07/04/19 15:00 61 20 109/71 98 07/04/19 14:30 103/72 97 07/04/19 14:00 61 20 117/78 98 07/04/19 13:30 107/68 97 07/04/19 13:10 100 07/04/19 13:00 61 20 117/78 98 07/04/19 12:00 20 07/04/19 11:00 20 07/04/19 10:58 98.2 F 72 20 99/69 100 Intake and Output 07/04/19 07/05/19 07/05/19 22:59 06:59 14:59 Intake Total 120 140 Output Total 100 300 Balance 20 -160 Intake: IV 120 140 Sodium Chloride 0.9% 1, 20 140 000 ml @ 20 mls/hr IV . Q24H AWA Rx#:[id number] metroNIDAZOLE-NS PMX 500 100 mg In Saline 1 100ml.bag @ 100 mls/hr IVPB TID AWA Rx#:[id number] Output: Urine 100 300 Other: Voiding Method Urinal Weight 56.971 kg Gen: This is a thin 43-year-old male. Patient is resting in bed and appears to be comfortable and in no acute distress. HEENT: Head is atraumatic, normocephalic. Pupils equal, round. Sclerae is anicteric. NECK: Supple. No JVD. No lymphadenopathy. No thyromegaly. LUNGS: Clear to auscultation. No wheezes or rhonchi. No intercostal retractions. HEART: Regular rate and rhythm. No murmur. ABDOMEN: Soft. Bowel sounds are present. No masses. Epigastric and bilateral upper quadrant tenderness. EXTREMITIES: No pedal edema. No calf tenderness. NEUROLOGICAL: Patient is awake, alert and oriented x3. Cranial nerves 2 through 12 are grossly intact. Results CBC & Chem 7: 07/04/19 11:40 07/04/19 11:40 Labs: Abnormal Lab Results - Last 24 Hours (Table) 07/04/19 07/04/19 07/04/19 Range/Units 11:40 11:40 11:40 RBC 3.70 L (4.30-5.90) m/uL Hgb 11.4 L (13.0-17.5) gm/dL Hct 35.2 L (39.0-53.0) % RDW 16.1 H (11.5-15.5) % Plt Count 52 L D (150-450) k/uL Lymphocytes # 0.7 L (1.0-4.8) k/uL PT 13.0 H (9.0-12.0) sec INR 1.3 H (<1.2) APTT 21.0 L (22.0-30.0) sec BUN 25 H (9-20) mg/dL Glucose 153 H (74-99) mg/dL Magnesium (1.6-2.3) mg/dL Total Bilirubin 2.2 H (0.2-1.3) mg/dL Ammonia (<30) umol/L Amylase 225 H (30-110) U/L Lipase 1269 H (23-300) U/L 07/04/19 07/05/19 Range/Units 11:40 07:59 RBC (4.30-5.90) m/uL Hgb (13.0-17.5) gm/dL Hct (39.0-53.0) % RDW (11.5-15.5) % Plt Count (150-450) k/uL Lymphocytes # (1.0-4.8) k/uL PT (9.0-12.0) sec INR (<1.2) APTT (22.0-30.0) sec BUN (9-20) mg/dL Glucose (74-99) mg/dL Magnesium 1.4 L (1.6-2.3) mg/dL Total Bilirubin (0.2-1.3) mg/dL Ammonia 36 H (<30) umol/L Amylase (30-110) U/L Lipase (23-300) U/L Thrombosis Risk Factor Assmnt - DVT/VTE Prophylaxis DVT/VTE Prophylaxis: Mechanical Prophylaxis ordered Assessment and Plan Plan: 1. Abdominal pain, acute on chronic secondary to acute pancreatitis and chronic cholecystitis. Consult with GI and general surgery. Continue Zofran as needed for nausea. Diet has been advanced to clear liquids. Continue Flagyl 500 mg IV 3 times daily, Levaquin 750 mg which will be changed to 500 mg every 24 hours. 2. History of alcoholic liver disease with portal hypertension and previous episodes of acute GI bleed with acute blood loss anemia resulting in multiple hospitalizations for GI bleeding from esophageal varices status post banding. Continue Protonix 40 mg daily and Carafate. Continue Inderal LA 80 mg daily. 3. Frequent hospitalizations for ascites and paracentesis, stable. We will hold Lasix for today. Continue Aldactone 100 mg twice daily. 4. Chronic pancytopenia with severe thrombocytopenia secondary to chronic EtOH related bone marrow damage and portal hypertension causing splenic seq uestration. 5. Spinal stenosis with peripheral neuropathy. Patient has considerable complaints for pain control and need for pain management physician. It is our understanding patient has been established with Dr. Felipe in the past. Patient states he is also seeing Dr. Bruce in the past and he wanted to do injections which the patient refused. 6. Tobacco use and dependence. 7. Hypothyroidism. Continue levothyroxine 25 g daily. 8. Recurrent depression. 9. Peripheral neuropathy secondary to alcoholism and spinal stenosis. 10. Gastroesophageal reflux disease and GI prophylaxis. Continue Protonix and Carafate. 11. DVT prophylaxis. No heparin due to thrombocytopenia. SCDs and ANDREEA hose and early ambulation. 12. COVID-19 not present. Patient admitted to the hospital for a minimum of 2 night stay. Discharge plan: Home. Impression and plan of care have been directed as dictated by the signing physician. Giovana Kathleen nurse practitioner acting as scribe for signing physician.
[2019-07-05] MEDS: SODIUM CHLORIDE 0.9% 1,000 ML IV SCH (16:34)
[2019-07-05] MEDS: THIAMINE 100 MG TAB PO SCH (16:51)
[2019-07-05] MEDS: MAGNESIUM OXIDE 400 MG TAB PO SCH ×2 (16:52→21:28)
[2019-07-05] MEDS: MIDODRINE 5 MG TAB PO SCH ×2 (16:53→21:28)
[2019-07-05] MEDS ORDERED: LEVOFLOXACIN 750MG-D5W PMX 750 MG in DEXTROSE/WATER 1 150ML.BAG IVPB SCH (17:00)
[2019-07-05] MEDS: SPIRONOLACTONE 25 MG TAB PO SCH (21:27)
[2019-07-06] MEDS: HYDROmorphone 0.5 MG/0.5 ML SYRINGE IVP PRN ×4 (01:49→11:19)
[2019-07-06] MEDS: LEVOTHYROXINE 25 MCG TAB PO SCH (04:51)
[2019-07-06 04:55] VITALS: BP 106/58; PULSE 76; RESP 18; TEMP 97.9
[2019-07-06] MEDS ORDERED: LEVOTHYROXINE 25 MCG TAB PO SCH (06:30)
[2019-07-06 06:39] LABS: Anisocytosis Slight; HCT 31.1 % (39.0-53.0); HGB 10.5 gm/dL (13.0-17.5); MCH 31.9 pg (25.0-35.0); MCHC 33.7 g/dL (31.0-37.0); MCV 94.4 fL (80.0-100.0); Mean Platelet Volume 8.3; RBC 3.29 m/uL (4.30-5.90); RDW 16.3 % (11.5-15.5); WBC 2.6 k/uL (3.8-10.6)
[2019-07-06 06:50] LABS: Platelet Count 33 k/uL (150-450)
[2019-07-06 07:31] LABS: ALT 11 U/L (4-49); AST 27 U/L (17-59); African American GFR (CKD) >90 (>60 ml/min/1.73 sqM); Albumin 2.8 g/dL (3.5-5.0); Alkaline Phosphatase 46 U/L (38-126); Anion Gap 5 mmol/L; Blood Urea Nitrogen 19 mg/dL (9-20); Calcium 8.3 mg/dL (8.4-10.2); Carbon Dioxide 25 mmol/L (22-30); Chloride 104 mmol/L (98-107); Glucose 148 mg/dL (74-99); Non-African American GFR(CKD) >90 (>60 ml/min/1.73 sqM); Potassium 4.3 mmol/L (3.5-5.1); Sodium 134 mmol/L (137-145); Total Bilirubin 2.7 mg/dL (0.2-1.3); Total Protein 6.1 g/dL (6.3-8.2)
[2019-07-06] MEDS: LACTULOSE 20 GM/30 ML CUP PO SCH (07:52)
[2019-07-06] MEDS: metroNIDAZOLE-NS PMX 500 MG in SALINE 1 100ML.BAG IVPB SCH (07:52)
[2019-07-06] MEDS: SUCRALFATE 1 GM TAB PO SCH (07:53)
[2019-07-06] MEDS: THIAMINE 100 MG TAB PO SCH (07:53)
[2019-07-06] MEDS: MAGNESIUM OXIDE 400 MG TAB PO SCH (07:53)
[2019-07-06] MEDS: SPIRONOLACTONE 25 MG TAB PO SCH (07:53)
[2019-07-06] MEDS: LIPASE 5,000/PROTEASE 17,000/AMYLASE 24,000 PO SCH (07:54)
[2019-07-06] MEDS: MIDODRINE 5 MG TAB PO SCH (07:54)
--- NOTE | 2019-07-06 08:19 | P.CONS ---
History of Present Illness - Reason for Consult Consult date: 07/05/19 Abdominal pain Requesting physician: Anu Garcia - Chief Complaint Abdominal pain - History of Present Illness 43-year-old male with a known medical history significant for alcoholic liver disease, splenomegaly, alcoholic pancreatitis, chronic thrombocytopenia, previous esophageal varices and portal hypertension who presents to the hospital due to complaints of abdominal pain. The patient reports diffuse abdominal pain present at baseline and worse prior to presentation. He also reports chronic back pain and pain in his legs. The patient has been hospitalized on numerous occasions recently due to complaints of abdominal pain, encephalopathy, ascites and GI bleed. He had a upper endoscopy on 06/28/2019 with findings of mild to moderate portal hypertensive gastropathy with no varices seen. Currently he is on Aldactone 100 mg twice a day at home with improvement in his abdominal ascites. He has a history of chronic pancreatitis which she takes enzyme repl acement therapy for. He denies any alcohol use over the past year. He is denying any change in bowel habits or signs or symptoms of GI bleeding. On presentation he did have WBC 4.1, hemoglobin 11.4, platelet count 52,000, total bilirubin 2.2, alkaline phosphatase 66, AST 31, ALT 14, amylase 225, and lipase 1269. Ultrasound of the abdomen on presentation showed a elongated gallbladder with a dilated common bile duct, cirrhotic liver and a prominent pancreatic duct. Review of Systems REVIEW OF SYSTEMS: CONSTITUTIONAL: Denies any fevers, chills, weight change or fatigue. CARDIOVASCULAR: Denies any chest pain, palpitations high or low blood pressures RESPIRATORY: Denies any shortness of breath, hemoptysis or cough. GENITOURINARY: No dysuria or hematuria. MUSCULOSKELETAL: No weakness reported, reports chronic back and leg pain. SKIN: Denies any new rashes or lesions, jaundice or pallor. PSYCHIATRIC: Denies any depression or anxiety, history of alcohol abuse for which the patient has been abstinent for over a year. NEUROLOGY: Denies headache, denies any new focal deficits. EARS/NOSE/THROAT: No recent hearing change, congestion, nasal discharge or sore throat. EYES: No pain in eyes, discharge or change in vision. GASTROINTESTINAL: As per HPI. Past Medical History Past Medical History: GERD/Reflux, GI Bleed, Hypertension, Liver Disease, Thyroid Disorder Additional Past Medical History / Comment(s): Liver cirrhosis, portal htn, ETOH abuse, esophageal varicies, upper GI bleed, chronic thrombocytopenia, coagulopathy, pancytopenia, ascities, spinal stenosis: back/leg and feet pain, DDD, chronic back pain, neuropathy bilateral legs/feet, falls, bronchitis, 2010 [place], chronic pancreatitis History of Any Multi-Drug Resistant Organisms: None Reported Past Surgical History: Appendectomy, Joint Replacement Additional Past Surgical History / Comment(s): EGDs paracentesis, back injections, R thumb reattachment, circumcism. Past Anesthesia/Blood Transfusion Reactions: No Reported Reaction Additional Past Anesthesia/Blood Transfusion Reaction / Comm: Pt has received blood without reaction. Past Psychological History: No Psychological Hx Reported, Depression Additional Psychological History / Comment(s): Pt is on disability. He resides with his mother. He uses a cane to ambulate at times. He drives. Smoking Status: Former smoker Past Alcohol Use History: None Reported, Abuse Additional Past Alcohol Use History / Comment(s): Patient is a smoker of a pack per day for 27 years currently down to a few puffs some days. He denies any marijuana or street drug use. He does have history of heavy alcohol use with drinking up to a pint per day for 7 years but then cut down to only drinking an occasional beer and states he has not drank any alcohol now in months. Past Drug Use History: None Reported - Past Family History Father Family Medical History: Unable to Obtain Additional Family Medical History / Comment(s): Pt does not know his father's medical hx. Mother Family Medical History: No Reported History Additional Family Medical History / Comment(s): Mother is healthy. Brother(s) Additional Family Medical History / Comment(s): Patient has 3 brothers and one suffers from alcohol abuse. 2 brothers have no major medical problems. Patient does not have any sisters. Patient is one daughter 12 years old with no major medical problems. Medications and Allergies Home Medications Medication Instructions Recorded Confirmed Type Rifaximin [Xifaxan] 550 mg PO DAILY 08/02/18 07/04/19 History Sucralfate [Carafate] 1 gm PO ACHS 09/22/18 07/04/19 History Thiamine [Vitamin B-1] 100 mg PO BID-W/MEALS tab 09/24/18 07/04/19 Rx Lipase/Protease/Amylase [Zenpep Dr 5,000 unit PO AC-TID 10/18/18 07/04/19 History 5,000 Unit Capsule] Multivitamins, Thera [Multivitamin 1 tab PO DAILY 10/18/18 07/04/19 History (formulary)] Vitamin B Complex 1 cap PO DAILY 10/18/18 07/04/19 History Lactulose [Constulose] 20 gm PO QID 03/11/19 07/04/19 History Levothyroxine Sodium [Synthroid] 25 mcg PO DAILY 06/27/19 07/04/19 History Magnesium 200 mg PO TID 06/27/19 07/04/19 History Midodrine HCl [ProAmatine] 10 mg PO TID 06/27/19 07/04/19 History Omeprazole 20 mg PO DAILY 06/27/19 07/04/19 History Propranolol HCl [Inderal Xl] 80 mg PO DAILY 06/27/19 07/04/19 History Furosemide [Lasix] 40 mg PO BID 07/04/19 07/04/19 History Spironolactone 100 mg PO BID 07/04/19 07/04/19 History Allergies Allergy/AdvReac Type Severity Reaction Status Date / Time No Known Allergies Allergy Verified 07/04/19 13:52 Physical Exam Vitals: Vital Signs Temp Pulse Pulse Resp BP BP Pulse Ox 07/05/19 04:57 97.5 F L 63 16 97/64 95 07/04/19 19:20 98 F 65 18 115/65 99 07/04/19 18:16 64 20 95/75 98 07/04/19 18:00 64 20 95/75 98 07/04/19 17:00 20 95/68 07/04/19 16:30 112/81 07/04/19 16:00 20 120/76 98 07/04/19 15:30 109/80 07/04/19 15:00 61 20 109/71 98 07/04/19 14:30 103/72 97 07/04/19 14:00 61 20 117/78 98 07/04/19 13:30 107/68 97 07/04/19 13:10 100 07/04/19 13:00 61 20 117/78 98 07/04/19 12:00 20 Intake and Output 05/04/20 05/05/20 05/05/20 22:59 06:59 14:59 Intake Total 120 140 Output Total 100 300 Balance 20 -160 Intake: IV 120 140 Sodium Chloride 0.9% 1, 20 140 000 ml @ 20 mls/hr IV . Q24H AWA Rx#:[id number] metroNIDAZOLE-NS PMX 500 100 mg In Saline 1 100ml.bag @ 100 mls/hr IVPB TID AWA Rx#:[id number] Output: Urine 100 300 Other: Voiding Method Urinal Weight 56.971 kg On physical examination, patient appears comfortable in no apparent distress. HEAD: Normocephalic, atraumatic. EYES: No scleral icterus. No conjunctival injection. MOUTH: No lesions, tongue midline. NECK: Trachea midline, no gross abnormalities. CHEST: Clear to auscultation with no wheezing or rhonchi appreciated. HEART: Regular rate and rhythm. ABDOMEN: Soft, no fluid wave appreciated. Mildly tender to palpation. Bowel sounds are positive. No organomegaly. No guarding or rigidity. EXTREMITIES: No pedal edema. SKIN: No rashes, no jaundice. NEUROLOGIC: Alert and oriented x3. No focal deficits. Results CBC & Chem 7: 07/06/19 06:24 07/06/19 06:24 Labs: Abnormal Lab Results - Last 24 Hours (Table) 07/04/19 07/04/19 07/04/19 Range/Units 11:40 11:40 11:40 RBC 3.70 L (4.30-5.90) m/uL Hgb 11.4 L (13.0-17.5) gm/dL Hct 35.2 L (39.0-53.0) % RDW 16.1 H (11.5-15.5) % Plt Count 52 L D (150-450) k/uL Lymphocytes # 0.7 L (1.0-4.8) k/uL PT 13.0 H (9.0-12.0) sec INR 1.3 H (<1.2) APTT 21.0 L (22.0-30.0) sec BUN 25 H (9-20) mg/dL Glucose 153 H (74-99) mg/dL Magnesium (1.6-2.3) mg/dL Total Bilirubin 2.2 H (0.2-1.3) mg/dL Ammonia (<30) umol/L Amylase 225 H (30-110) U/L Lipase 1269 H (23-300) U/L 07/04/19 07/05/19 Range/Units 11:40 07:59 RBC (4.30-5.90) m/uL Hgb (13.0-17.5) gm/dL Hct (39.0-53.0) % RDW (11.5-15.5) % Plt Count (150-450) k/uL Lymphocytes # (1.0-4.8) k/uL PT (9.0-12.0) sec INR (<1.2) APTT (22.0-30.0) sec BUN (9-20) mg/dL Glucose (74-99) mg/dL Magnesium 1.4 L (1.6-2.3) mg/dL Total Bilirubin (0.2-1.3) mg/dL Ammonia 36 H (<30) umol/L Amylase (30-110) U/L Lipase (23-300) U/L US - abdomen: report reviewed (Ultrasound of the abdomen on presentation showed a elongated gallbladder with a dilated common bile duct, cirrhotic liver and a prominent pancreatic duct.) Assessment and Plan (1) Abdominal pain Narrative/Plan: 44-year-old male with multiple medical comorbidities including decompensated alcoholic cirrhosis, chronic pancreatitis, prior history of alcohol abuse who presented to the hospital with complaints of abdominal pain. He has had multiple hospitalizations recently with complaints of ascites, GI bleed with EGD on 06/27 significant for mild to moderate portal hypertensive gastropathy, and abdominal pain. Patient was found to have elevation in his lipase at 1269 on presentation. He reports compliance with outpatient medications for encephalopathy and ascites. Current Visit: Yes Status: Acute Code(s): R10.9 - UNSPECIFIED ABDOMINAL PAIN SNOMED Code(s): 20822816 (2) Hyperbilirubinemia Current Visit: Yes Status: Chronic Code(s): E80.6 - OTHER DISORDERS OF BILIRUBIN METABOLISM SNOMED Code(s): 32722219 (3) Alcoholic cirrhosis of liver Current Visit: No Status: Acute Code(s): K70.30 - ALCOHOLIC CIRRHOSIS OF LIVER WITHOUT ASCITES SNOMED Code(s): 188429034 (4) Hepatic encephalopathy Current Visit: No Status: Acute Code(s): K72.90 - HEPATIC FAILURE, UNSPECIFIED WITHOUT COMA SNOMED Code(s): 54873795 Plan: Supportive care Okay for clear liquid diet, advance as tolerated Appreciate surgical recommendations Continue Aldactone twice a day Continue lactulose and rifaximin therapy Continue pancreatic enzyme replacement therapy with meals Continue antibiotic therapy Thank you for allowing us to participate in the care of the patient
[2019-07-06] MEDS ORDERED: RIFAXIMIN 550 MG TABLET PO SCH (09:00)
[2019-07-06] MEDS ORDERED: PANTOPRAZOLE 40 MG TABLET PO SCH (09:00)
[2019-07-06] MEDS ORDERED: MULTIVITAMINS, THERA 1 EACH TAB PO SCH (09:00)
[2019-07-06] MEDS ORDERED: NON FORMULARY DRUG (Vitamin B Complex [Vitamin B Complex] 1 CAP) PO SCH (09:00)
[2019-07-06] MEDS ORDERED: PROPRANOLOL LA 80 MG CAP.SA.24H PO SCH (09:00)
--- NOTE | 2019-07-06 13:01 | P.DS ---
Providers Date of admission: 07/04/19 14:58 Expected date of discharge: 07/06/19 Attending physician: Anu Garcia Consults: 07/04/19 14:57 Consult Physician Routine Consulting Provider: Vinnie Jose Consult Reason/Comments: acute cholecystitis Do you want consulting provider notified?: Yes 07/04/19 14:58 Consult Physician Routine Consulting Provider: Scot Augustine Consult Reason/Comments: Pancreatitis, acute cholecystitis, hyperbilirubinemia Do you want consulting provider notified?: Yes Primary care physician: [facility] Course: This is a 43-year-old male patient of Dr. Sarmad Linn. He has history of alcohol liver cirrhosis with portal hypertension and previous GI bleeding, hypertension and gastritis, pancreatitis, spinal stenosis and peripheral neuropathy. Patient also has chronic back pain and was under the care of Dr. Lagunas but violated pain contract and no longer seen by pain management. He is also known to Dr. Ghazal Leiva from previous EGDs in the past finding gastritis consistent with portal gastropathy but no gastric or esophageal varices or active bleeding. He has had multipe admissions for acute GI bleed in Jan 2016, Mar 2016 and Mar 2017. He had admission for right leg abscess requiring I&D in December 2017. Patient has had multiple admissions for acute pancreatitis with worsening ascites. Most recently, hospitalizations have been for ascites and therapeutic paracentesis. His last paracentesis was on June 07 with removal of 6.6 L of straw-colored fluid. Patient had recent admission for acute kidney injury and concern for acute GI bleed. Patient underwent EGD with Dr. Leiva on 06/27 that revealed mild to moderate portal hypertension gastropathy. No evidence of gastric or esophageal varices. Recommendations to advance diet as tolerated and discharge home later today with follow-up in 2-3 weeks. Patient returns to [facility] emergency center for evaluation. Hemoglobin 11.4, WBC 4.1 and platelet count 52. INR 1.3. Electrolytes normal, BUN 25 and creatinine 1.09. Blood sugar 153, total bilirubin 2.2, liver function tests normal. Ammonia level 36. Amylase 225 and lipase 1269. Urinalysis negative. Coronavirus testing negative. Patient was afebrile, heart rate 72, blood pressure 99/69, pulse ox 100% on room air. Abdominal ultrasound revealed cirrhotic morphology of the liver with sequelae portal venous hypertension and abdominal ascites. Elongated gallbladder with dilated common bile duct and positive Wilson sign. HIDA scan is recommended to evaluate for acute cholecystitis. Prominent main pancreatic duct this could be further evaluated with MRCP. Patient admitted to the [facility] floor and consults with GI and general surgery. Patient started on Levaquin and Flagyl. 07/05: Patient complaint continues to complain of abdominal pain across the upper abdomen. His lipase today is 153. Surgery is not planning for any surgical intervention in no surgical intervention planned form GI. Patient was offered consult with pain management for celiac nerve block but patient states that he needs to leave the hospital and cannot wait for the consult. Patient will be referred to outpatient pain management. Patient will be discharged home today in stable condition. Discharge diagnoses: 1. Abdominal pain, acute on chronic secondary to acute pancreatitis and chronic cholecystitis. 2. History of alcoholic liver disease with portal hypertension and previous episodes of acute GI bleed with acute blood loss anemia resulting in multiple hospitalizations for GI bleeding from esophageal varices status post banding. 3. Frequent hospitalizations for ascites and paracentesis, stable. 4. Chronic pancytopenia with severe thrombocytopenia secondary to chronic EtOH related bone marrow damage and portal hypertension causing splenic sequestration. 5. Spinal stenosis with peripheral neuropathy. 6. Tobacco use and dependence. 7. Hypothyroidism. 8. Recurrent depression. 9. Peripheral neuropathy secondary to alcoholism and spinal stenosis. 10. Gastroesophageal reflux disease. 11. COVID-19 not present. Discharge plan: Home. Impression and plan of care have been directed as dictated by the signing physician. Giovana Kathleen nurse practitioner acting as scribe for signing physician. Patient Condition at Discharge: Good Plan - Discharge Summary Discharge Rx Participant: Yes New Discharge Prescriptions: New Lipase/Protease/Amylase [Robert Blunt 5,000 Unit Capsule] 2 each PO AC-TID #180 capsule. Continue Rifaximin [Xifaxan] 550 mg PO DAILY Sucralfate [Carafate] 1 gm PO ACHS Thiamine [Vitamin B-1] 100 mg PO BID-W/MEALS tab Vitamin B Complex 1 cap PO DAILY Multivitamins, Thera [Multivitamin (formulary)] 1 tab PO DAILY Lactulose [Constulose] 20 gm PO QID Midodrine HCl [ProAmatine] 10 mg PO TID Omeprazole 20 mg PO DAILY Magnesium 200 mg PO TID Levothyroxine Sodium [Synthroid] 25 mcg PO DAILY Propranolol HCl [Inderal Xl] 80 mg PO DAILY Spironolactone 100 mg PO BID Changed Furosemide [Lasix] 40 mg PO DAILY #0 Discontinued Lipase/Protease/Amylase [Robert Blunt 5,000 Unit Capsule] 5,000 unit PO AC-TID Discharge Medication List Rifaximin [Xifaxan] 550 mg PO DAILY 08/02/18 [History] Sucralfate [Carafate] 1 gm PO ACHS 09/22/18 [History] Thiamine [Vitamin B-1] 100 mg PO BID-W/MEALS tab 09/24/18 [Rx] Multivitamins, Thera [Multivitamin (formulary)] 1 tab PO DAILY 10/18/18 [History] Vitamin B Complex 1 cap PO DAILY 10/18/18 [History] Lactulose [Constulose] 20 gm PO QID 03/11/19 [History] Levothyroxine Sodium [Synthroid] 25 mcg PO DAILY 06/27/19 [History] Magnesium 200 mg PO TID 06/27/19 [History] Midodrine HCl [ProAmatine] 10 mg PO TID 06/27/19 [History] Omeprazole 20 mg PO DAILY 06/27/19 [History] Propranolol HCl [Inderal Xl] 80 mg PO DAILY 06/27/19 [History] Spironolactone 100 mg PO BID 07/04/19 [History] Furosemide [Lasix] 40 mg PO DAILY #0 07/06/19 [Rx] Lipase/Protease/Amylase [Robert Blunt 5,000 Unit Capsule] 2 each PO AC-TID #180 capsule. 07/06/19 [Rx] Follow up Appointment(s)/Referral(s): Macy Leiva MD [STAFF PHYSICIAN] - 07/19/19 2:15 pm Dawit Bruce MD [Medical Doctor] - 2 Weeks (patient will have to call office back on july 17 when office opens back up to schedule appt.) Pablo Linn MD [Primary Care Provider] - 07/14/19 1:15 pm Activity/Diet/Wound Care/Special Instructions: Follow up with [facility] for Celiac nerve block. Low fat diet Discharge Disposition: HOME SELF-CARE
--- NOTE | 2019-07-06 16:22 | P.PN ---
Progress Note - Text Progress Note Date: 07/06/19 Patient remained stable. He has no significant abdominal pain today. On exam is lesser stable his evidence soft. Patiently discharged home per the medical service. We will follow up when necessary.
--- NOTE | 2019-07-08 14:44 | CDI ---
See D Documentation Clarification Form Date: 07/08/19 From: Michelle Haro CCS Phone: If you have a question about this query, please contact Nicole Trivedi, Propeller Engineer at [phone] between 8am and 5pm. Admit Date: 07/04/19 Discharge Date:07/06/19 Patient Name: Armin Arriaga Visit Number: [id number] ATTENTION: The Clinical Documentation Specialists (CDI) and [facility] Coding Staff appreciate your assistance in clarifying documentation. Please respond to the clarification below the line at the bottom and electronically sign. The CDI & [facility] Coding staff will review the response and follow-up if needed. Please note: Queries are made part of the Legal Health Record. If you have any questions, please contact the author of this message via ITS. Dear Dr. Garcia, Patient has been described as thin with inadequate energy intake. History/Risk Factors: Chronic Pancreatitis, Alcoholic Cirrhosis, Depression, Chronic Cholecysitis Clinical Indicators: Thin, Inadequate intake Patients weight is: 56.97 kg Patients height is: 5 ft 9 in Calculated BMI is: 18.5 Albumin: 3.8, 2.8 Total Protein: 7.5, 6.1 Treatments: Enlive- high protein supplements Dietary Consult: 07/04 In order to capture the severity of condition associated with patient BMI of 18.5, a clinical diagnosis needs to be documented by the physician. Please clarify: Cachexia Underweight Malnutrition Mild Moderate Severe Other Unable to determine See Discharge Sum addendum MTDD
== END 2019-07-06 12:05 | disposition home or self-care (01) | DRG 438 ==
LOC: EC 10:46 → 5NMEDONC 14:58
PROVIDERS: ADMIT Family Medicine; ATTEND Family Medicine
DX: K85.20 Alcohol induced acute pancreatitis without necrosis or infection (principal); E43 Unspecified severe protein-calorie malnutrition; D61.818 Other pancytopenia; R64 Cachexia; K76.6 Portal hypertension; D68.9 Coagulation defect, unspecified; F33.9 Major depressive disorder, recurrent, unspecified; I85.10 Secondary esophageal varices without bleeding; Z68.1 Body mass index [BMI] 19.9 or less, adult; Z20.828 Contact with and (suspected) exposure to other viral communicable diseases; K70.31 Alcoholic cirrhosis of liver with ascites; K72.90 Hepatic failure, unspecified without coma; G62.1 Alcoholic polyneuropathy; D69.59 Other secondary thrombocytopenia; K86.0 Alcohol-induced chronic pancreatitis; F10.20 Alcohol dependence, uncomplicated; K81.1 Chronic cholecystitis; K21.9 Gastro-esophageal reflux disease without esophagitis; I10 Essential (primary) hypertension; M48.00 Spinal stenosis, site unspecified; G89.29 Other chronic pain; E03.9 Hypothyroidism, unspecified; K31.89 Other diseases of stomach and duodenum; R16.1 Splenomegaly, not elsewhere classified; F17.210 Nicotine dependence, cigarettes, uncomplicated; Z71.3 Dietary counseling and surveillance; Z79.890 Hormone replacement therapy; Z79.899 Other long term (current) drug therapy; Z87.19 Personal history of other diseases of the digestive system; Z90.49 Acquired absence of other specified parts of digestive tract; Z98.890 Other specified postprocedural states; Z81.1 Family history of alcohol abuse and dependence
CPT/HCPCS: 36415; 74018; 76705; 80053; 81003; 82140; 82150; 83690; 83735; 85025; 85027; 85610; 85730; 87635; 96365; 96368; 96375; 96376; 99285

== ENCOUNTER 2019-07-11 14:29 | Emergency (ER) | payer MEDICARE ==
[2019-07-11 14:38] VITALS: RESP 18
[2019-07-11] MEDS ORDERED: KETOROLAC 30 MG/ML 1 ML VIAL IVP STA (15:03)
--- NOTE | 2019-07-11 15:11 | ED ---
General Adult HPI - General Chief complaint: Abdominal Pain Stated complaint: abd pain Time Seen by Provider: 07/11/19 14:44 Source: patient, RN notes reviewed Mode of arrival: ambulatory Limitations: no limitations - History of Present Illness Initial comments: Armin is a 43-year-old male well-known to this emergency department for a chief complaint of abdominal pain. Patient has a history of chronic alcoholism and pancreatitis. States this feels like his chronic pancreatitis. States he is supposed to be getting a celiac plexus nerve block next week. States that his pain flared up again because he ate solid food. Patient was recently admitted for cholecystitis however this was found to be likely chronic in nature. Patient has no other complaints at this time including shortness of breath, chest pain, nausea or vomiting, headache, or visual changes. - Related Data Home Medications Medication Instructions Recorded Confirmed Rifaximin [Xifaxan] 550 mg PO DAILY 08/02/18 07/11/19 Sucralfate [Carafate] 1 gm PO ACHS 09/22/18 07/11/19 Multivitamins, Thera [Multivitamin 1 tab PO DAILY 10/18/18 07/11/19 (formulary)] Vitamin B Complex 1 cap PO DAILY 10/18/18 07/11/19 Lactulose [Constulose] 20 gm PO QID 03/11/19 07/11/19 Levothyroxine Sodium [Synthroid] 25 mcg PO DAILY 06/27/19 07/11/19 Magnesium 200 mg PO TID 06/27/19 07/11/19 Midodrine HCl [ProAmatine] 10 mg PO TID@0900,1300,1800 06/27/19 07/11/19 Omeprazole 20 mg PO DAILY 06/27/19 07/11/19 Propranolol HCl [Inderal Xl] 80 mg PO DAILY 06/27/19 07/11/19 Spironolactone 100 mg PO BID 07/04/19 07/11/19 Furosemide [Lasix] 40 mg PO BID@0900,1600 07/11/19 07/11/19 Previous Rx's Medication Instructions Recorded Thiamine [Vitamin B-1] 100 mg PO BID-W/MEALS tab 09/24/18 Lipase/Protease/Amylase [Zenpep 2 each PO AC-TID #180 capsule. 07/06/19 5,000 Unit Capsule] Allergies Allergy/AdvReac Type Severity Reaction Status Date / Time No Known Allergies Allergy Verified 07/11/19 15:47 Review of Systems ROS Statement: Those systems with pertinent positive or pertinent negative responses have been documented in the HPI. ROS Other: All systems not noted in ROS Statement are negative. Past Medical History Past Medical History: GERD/Reflux, GI Bleed, Hypertension, Liver Disease, Thyroid Disorder Additional Past Medical History / Comment(s): Liver cirrhosis, portal htn, ETOH abuse, esophageal varicies, upper GI bleed, chronic thrombocytopenia, coagulopathy, pancytopenia, ascities, spinal stenosis: back/leg and feet pain, DDD, chronic back pain, neuropathy bilateral legs/feet, falls, bronchitis, 2010 [facility] [place], chronic pancreatitis History of Any Multi-Drug Resistant Organisms: None Reported Past Surgical History: Appendectomy, Joint Replacement Additional Past Surgical History / Comment(s): EGDs paracentesis, back injection s, R thumb reattachment, circumcism. Past Anesthesia/Blood Transfusion Reactions: No Reported Reaction Additional Past Anesthesia/Blood Transfusion Reaction / Comment(s): Pt has received blood without reaction. Past Psychological History: No Psychological Hx Reported, Depression Smoking Status: Former smoker Past Alcohol Use History: Abuse Past Drug Use History: None Reported - Past Family History Father Family Medical History: Unable to Obtain Additional Family Medical History / Comment(s): Pt does not know his father's medical hx. Mother Family Medical History: No Reported History Additional Family Medical History / Comment(s): Mother is healthy. Brother(s) Additional Family Medical History / Comment(s): Patient has 3 brothers and one suffers from alcohol abuse. 2 brothers have no major medical problems. Patient does not have any sisters. Patient is one daughter 12 years old with no major medical problems. General Exam Limitations: no limitations General appearance: alert, in no apparent distress Head exam: Present: atraumatic, normocephalic, normal inspection Eye exam: Present: normal appearance, PERRL, EOMI. Absent: scleral icterus, conjunctival injection, periorbital swelling ENT exam: Present: normal exam, mucous membranes moist Neck exam: Present: normal inspection, full ROM. Absent: tenderness, meningismus, lymphadenopathy Respiratory exam: Present: normal lung sounds bilaterally. Absent: respiratory distress, wheezes, rales, rhonchi, stridor Cardiovascular Exam: Present: regular rate, normal rhythm, normal heart sounds. Absent: systolic murmur, diastolic murmur, rubs, gallop, clicks GI/Abdominal exam: Present: soft, normal bowel sounds. Absent: distended, tenderness, guarding, rebound, rigid Neurological exam: Present: alert Course Vital Signs 07/11/19 07/11/19 14:35 16:28 Temperature 97.7 F 98.0 F Pulse Rate 74 66 Respiratory 18 18 Rate Blood Pressure 113/73 104/75 O2 Sat by Pulse 100 99 Oximetry Medical Decision Making - Medical Decision Making She presents for chronic abdominal pain consistent with previous episodes of chronic pancreatitis. He has been admitted several times in the past couple months for this. Recently seen by surgery last week. Vitals are stable. CBC does show leukocytosis however this is chronic. Thrombocytopenia also chronic in nature and likely related to patient's chronic conditions. Hyperglycemia of 228 for which patient will follow up with primary care for. Lipase is 700 however patient often has elevated amylase and lipase. He was given pain medication and did have improvement in symptoms. Patient will be discharged home to follow up with primary care. He'll return for any worsening symptoms. - Lab Data Result diagrams: 07/11/19 14:55 07/11/19 14:55 Lab Results 07/11/19 07/11/19 Range/Units 14:55 14:55 WBC 2.3 L (3.8-10.6) k/uL RBC 3.66 L (4.30-5.90) m/uL Hgb 11.5 L (13.0-17.5) gm/dL Hct 35.3 L (39.0-53.0) % MCV 96.3 (80.0-100.0) fL MCH 31.4 (25.0-35.0) pg MCHC 32.6 (31.0-37.0) g/dL RDW 17.6 H (11.5-15.5) % Plt Count 33 L (150-450) k/uL Neutrophils % 69 % Lymphocytes % 20 % Monocytes % 7 % Eosinophils % 2 % Basophils % 1 % Neutrophils # 1.6 (1.3-7.7) k/uL Lymphocytes # 0.4 L (1.0-4.8) k/uL Monocytes # 0.2 (0-1.0) k/uL Eosinophils # 0.1 (0-0.7) k/uL Basophils # 0.0 (0-0.2) k/uL Anisocytosis Slight Macrocytosis Slight Sodium 140 (137-145) mmol/L Potassium 4.4 (3.5-5.1) mmol/L Chloride 109 H (98-107) mmol/L Carbon Dioxide 23 (22-30) mmol/L Anion Gap 8 mmol/L BUN 21 H (9-20) mg/dL Creatinine 0.93 (0.66-1.25) mg/dL Est GFR (CKD-EPI)AfAm >90 (>60 ml/min/1.73 sqM) Est GFR (CKD-EPI)NonAf >90 (>60 ml/min/1.73 sqM) Glucose 228 H (74-99) mg/dL Calcium 8.9 (8.4-10.2) mg/dL Total Bilirubin 2.3 H (0.2-1.3) mg/dL AST 37 (17-59) U/L ALT 12 (4-49) U/L Alkaline Phosphatase 50 (38-126) U/L Total Protein 7.1 (6.3-8.2) g/dL Albumin 3.5 (3.5-5.0) g/dL Amylase 119 H (30-110) U/L Lipase 707 H (23-300) U/L Serum Alcohol <10 mg/dL Disposition Clinical Impression: Chronic abdominal pain Disposition: HOME SELF-CARE Condition: Good Instructions (If sedation given, give patient instructions): Abdominal Pain (ED) Additional Instructions: Please follow up with primary care in 1-2 days. Follow up with GI doctor as well. Return here to the ER if you have any worsening symptoms. Is patient prescribed a controlled substance at d/c from ED?: No Referrals: Pablo Linn MD [Primary Care Provider] - 1-2 days Time of Disposition: 16:24
[2019-07-11 15:15] LABS: Anisocytosis Slight; Basophils % (A) 1 %; Eosinophils # (A) 0.1 k/uL (0-0.7); Eosinophils % (A) 2 %; HCT 35.3 % (39.0-53.0); HGB 11.5 gm/dL (13.0-17.5); Lymphocytes # (A) 0.4 k/uL (1.0-4.8); Lymphocytes % (A) 20 %; MCH 31.4 pg (25.0-35.0); MCHC 32.6 g/dL (31.0-37.0); MCV 96.3 fL (80.0-100.0); Macrocytosis Slight; Mean Platelet Volume 9.2; Monocytes # (A) 0.2 k/uL (0-1.0); Monocytes % (A) 7 %; Neutrophils # (A) 1.6 k/uL (1.3-7.7); Neutrophils % (A) 69 %; RBC 3.66 m/uL (4.30-5.90); RDW 17.6 % (11.5-15.5); WBC 2.3 k/uL (3.8-10.6)
[2019-07-11 15:24] LABS: Platelet Count 33 k/uL (150-450)
[2019-07-11 15:35] LABS: ALT 12 U/L (4-49); AST 37 U/L (17-59); African American GFR (CKD) >90 (>60 ml/min/1.73 sqM); Albumin 3.5 g/dL (3.5-5.0); Alcohol <10 mg/dL; Alkaline Phosphatase 50 U/L (38-126); Amylase 119 U/L (30-110); Anion Gap 8 mmol/L; Blood Urea Nitrogen 21 mg/dL (9-20); Calcium 8.9 mg/dL (8.4-10.2); Carbon Dioxide 23 mmol/L (22-30); Chloride 109 mmol/L (98-107); Glucose 228 mg/dL (74-99); Non-African American GFR(CKD) >90 (>60 ml/min/1.73 sqM); Potassium 4.4 mmol/L (3.5-5.1); Sodium 140 mmol/L (137-145); Total Bilirubin 2.3 mg/dL (0.2-1.3); Total Protein 7.1 g/dL (6.3-8.2)
[2019-07-11] MEDS ORDERED: HYDROmorphone 0.5 MG/0.5 ML SYRINGE IVP STA (16:23)
[2019-07-11 16:29] VITALS: BP 104/75; PULSE 66; TEMP 98
== END 2019-07-11 16:38 | disposition home or self-care (01) ==
LOC: EC 14:29
DX: G89.29 Other chronic pain (principal); R10.9 Unspecified abdominal pain; K86.1 Other chronic pancreatitis; D72.829 Elevated white blood cell count, unspecified; D69.6 Thrombocytopenia, unspecified; R73.9 Hyperglycemia, unspecified; R74.8 Abnormal levels of other serum enzymes; K21.9 Gastro-esophageal reflux disease without esophagitis; I10 Essential (primary) hypertension; E07.9 Disorder of thyroid, unspecified; K74.60 Unspecified cirrhosis of liver; Z79.899 Other long term (current) drug therapy; Z79.890 Hormone replacement therapy; Z90.89 Acquired absence of other organs; Z87.891 Personal history of nicotine dependence; Z87.19 Personal history of other diseases of the digestive system
CPT/HCPCS: 36415; 80053; 82150; 83690; 85025; 99284; 96374; 96375; G0480; J1885; J1170; 80320

== ENCOUNTER → 2019-07-15 | Outpatient (CLI) | payer MEDICARE | END | disposition home or self-care (01) | LOC: LABWHC1 10:00 | PROVIDERS: ATTEND Internal Medicine Gastroenterology | DX: U07.1 COVID-19 (principal) | CPT/HCPCS: 87635 ==

== ENCOUNTER 2019-07-17 17:58 | Emergency (ER) | payer MEDICARE ==
[2019-07-17] MEDS ORDERED: ONDANSETRON 4 MG/2 ML VIAL IVP STA (18:34)
[2019-07-17] MEDS ORDERED: FAMOTIDINE 20 MG/2 ML VIAL IV STA (18:34)
[2019-07-17] MEDS ORDERED: SODIUM CHLORIDE 0.9% 1,000 ML IV STA (18:34)
[2019-07-17] MEDS ORDERED: HYDROmorphone 1 MG/ML 1 ML SYRINGE IVP STA ×2 (18:34→20:03)
--- NOTE | 2019-07-17 18:36 | ED ---
Abdominal Pain HPI - General Source: patient Mode of arrival: ambulatory Limitations: no limitations <Sarthak Moralez - Last Filed: 07/17/19 20:12> <Girish White - Last Filed: 07/17/19 20:14> - General Chief Complaint: Abdominal Pain Stated Complaint: abd/back pain Time Seen by Provider: 07/17/19 18:06 - History of Present Illness Initial Comments: Patient is a 43-year-old male with history of chronic pancreatitis presenting to the emergency department with chief complaint of pink otitis. Patient states his symptoms began a few weeks ago after he was diagnosed with cholecystitis. Patient states he was started on antibiotics which helped improve his symptoms. Patient reports the pain gradually return and is now unbearable. Patient reports history of ascites and is scheduled for paracentesis in the next few days by . Patient reports nausea today but no vomiting. Denies any hematuria, hematochezia or melena. States most of his pain comes and goes in waves, sharp in nature and located in the epigastric region. Denies any night sweats fevers or chills. Denies chest pain shortness of breath headaches blurry vision one-sided weakness or paresthesias. (Sarthak Moralez) - Related Data Home Medications Medication Instructions Recorded Confirmed Rifaximin [Xifaxan] 550 mg PO DAILY 08/02/18 07/11/19 Sucralfate [Carafate] 1 gm PO ACHS 09/22/18 07/11/19 Multivitamins, Thera [Multivitamin 1 tab PO DAILY 10/18/18 07/11/19 (formulary)] Vitamin B Complex 1 cap PO DAILY 10/18/18 07/11/19 Lactulose [Constulose] 20 gm PO QID 03/11/19 07/11/19 Levothyroxine Sodium [Synthroid] 25 mcg PO DAILY 06/27/19 07/11/19 Magnesium 200 mg PO TID 06/27/19 07/11/19 Midodrine HCl [ProAmatine] 10 mg PO TID@0900,1300,1800 06/27/19 07/11/19 Omeprazole 20 mg PO DAILY 06/27/19 07/11/19 Propranolol HCl [Inderal Xl] 80 mg PO DAILY 06/27/19 07/11/19 Spironolactone 100 mg PO BID 07/04/19 07/11/19 Furosemide [Lasix] 40 mg PO BID@0900,1600 07/11/19 07/11/19 Previous Rx's Medication Instructions Recorded Thiamine [Vitamin B-1] 100 mg PO BID-W/MEALS tab 09/24/18 Lipase/Protease/Amylase [Rboert Blunt 2 each PO AC-TID #180 capsule. 07/06/19 5,000 Unit Capsule] Allergies Allergy/AdvReac Type Severity Reaction Status Date / Time No Known Allergies Allergy Verified 07/17/19 18:04 Review of Systems ROS Other: All systems not noted in ROS Statement are negative. <Sarthak Moralez - Last Filed: 07/17/19 20:12> ROS Other: All systems not noted in ROS Statement are negative. <Girish White - Last Filed: 07/17/19 20:14> ROS Statement: Those systems with pertinent positive or pertinent negative responses have been documented in the HPI. Past Medical History Past Medical History: GERD/Reflux, GI Bleed, Hypertension, Liver Disease, Thyroid Disorder Additional Past Medical History / Comment(s): Liver cirrhosis, portal htn, ETOH abuse, esophageal varicies, upper GI bleed, chronic thrombocytopenia, coagulopathy, pancytopenia, ascities, spinal stenosis: back/leg and feet pain, DDD, chronic back pain, neuropathy bilateral legs/feet, falls, bronchitis, 2010 [facility] [place], chronic pancreatitis History of Any Multi-Drug Resistant Organisms: None Reported Past Surgical History: Appendectomy, Joint Replacement Additional Past Surgical History / Comment(s): EGDs paracentesis, back inj ections, R thumb reattachment, circumcism. Past Anesthesia/Blood Transfusion Reactions: No Reported Reaction Additional Past Anesthesia/Blood Transfusion Reaction / Comment(s): Pt has received blood without reaction. Past Psychological History: No Psychological Hx Reported, Depression Smoking Status: Former smoker Past Alcohol Use History: Abuse Past Drug Use History: None Reported - Past Family History Father Family Medical History: Unable to Obtain Additional Family Medical History / Comment(s): Pt does not know his father's medical hx. Mother Family Medical History: No Reported History Additional Family Medical History / Comment(s): Mother is healthy. Brother(s) Additional Family Medical History / Comment(s): Patient has 3 brothers and one suffers from alcohol abuse. 2 brothers have no major medical problems. Patient does not have any sisters. Patient is one daughter 12 years old with no major medical problems. <Sarthak Moralez - Last Filed: 07/17/19 20:12> General Exam Limitations: no limitations General appearance: alert, in no apparent distress Head exam: Present: atraumatic, normocephalic, normal inspection Eye exam: Present: normal appearance, PERRL, EOMI Pupils: Present: normal accommodation ENT exam: Present: normal exam, normal oropharynx, mucous membranes moist Neck exam: Present: normal inspection, full ROM Respiratory exam: Present: normal lung sounds bilaterally Cardiovascular Exam: Present: regular rate, normal rhythm, normal heart sounds GI/Abdominal exam: Present: soft, distended (Ascites), tenderness (Epigastric tenderness). Absent: rebound Extremities exam: Present: normal inspection, full ROM Back exam: Present: normal inspection, full ROM, tenderness Neurological exam: Present: alert, oriented X3 Psychiatric exam: Present: normal affect, normal mood Skin exam: Present: warm, dry, intact, normal color <Sarthak Moralez - Last Filed: 07/17/19 20:12> Course <Girish White - Last Filed: 07/17/19 20:14> Vital Signs 07/17/19 07/17/19 18:00 19:53 Temperature 98.6 F 98.3 F Pulse Rate 81 70 Respiratory 16 19 Rate Blood Pressure 109/65 120/84 O2 Sat by Pulse 98 100 Oximetry - Reevaluation(s) Reevaluation #1: 07/17/19 20:13 PA supervision: I proceeded [id number] evaluation of this patient did present with complaints of abdominal pain or off for the past several days he is a patient has chronic pancreatitis he does have ascites he is scheduled to have a paracentesis in 2 days. After long discussion with the patient he would rather not be admitted but instead be able to go home after pain control and keep his follow-up in 2 days for the paracentesis. He is aware of his laboratory work and the findings of this evaluation. (Girish White) Medical Decision Making - Lab Data Result diagrams: 07/17/19 18:30 07/17/19 18:30 <Sarthak Moralez - Last Filed: 07/17/19 20:12> - Lab Data Result diagrams: 07/17/19 18:30 07/17/19 18:30 <Girish White - Last Filed: 07/17/19 20:14> - Lab Data Lab Results 07/17/19 07/17/19 07/17/19 Range/Units 18:30 18:30 18:59 WBC 2.0 L (3.8-10.6) k/uL RBC 3.40 L (4.30-5.90) m/uL Hgb 10.8 L (13.0-17.5) gm/dL Hct 33.2 L (39.0-53.0) % MCV 97.6 (80.0-100.0) fL MCH 31.8 (25.0-35.0) pg MCHC 32.6 (31.0-37.0) g/dL RDW 18.8 H (11.5-15.5) % Plt Count 48 L (150-450) k/uL Neutrophils % 55 % Lymphocytes % 26 % Monocytes % 12 % Eosinophils % 5 % Basophils % 0 % Neutrophils # 1.1 L (1.3-7.7) k/uL Lymphocytes # 0.5 L (1.0-4.8) k/uL Monocytes # 0.2 (0-1.0) k/uL Eosinophils # 0.1 (0-0.7) k/uL Basophils # 0.0 (0-0.2) k/uL Anisocytosis Slight Macrocytosis Slight Sodium 136 L (137-145) mmol/L Potassium 4.6 (3.5-5.1) mmol/L Chloride 108 H (98-107) mmol/L Carbon Dioxide 21 L (22-30) mmol/L Anion Gap 7 mmol/L BUN 23 H (9-20) mg/dL Creatinine 1.01 (0.66-1.25) mg/dL Est GFR (CKD-EPI)AfAm >90 (>60 ml/min/1.73 sqM) Est GFR (CKD-EPI)NonAf >90 (>60 ml/min/1.73 sqM) Glucose 273 H (74-99) mg/dL Calcium 8.7 (8.4-10.2) mg/dL Total Bilirubin 1.7 H (0.2-1.3) mg/dL AST 48 (17-59) U/L ALT 22 (4-49) U/L Alkaline Phosphatase 63 (38-126) U/L Total Protein 6.7 (6.3-8.2) g/dL Albumin 3.3 L (3.5-5.0) g/dL Amylase 125 H (30-110) U/L Lipase 886 H (23-300) U/L Urine Color Yellow Urine Appearance Clear (Clear) Urine pH 6.0 (5.0-8.0) Ur Specific Bailey 1.021 (1.001-1.035) Urine Protein Negative (Negative) Urine Glucose (UA) Trace H (Negative) Urine Ketones Trace H (Negative) Urine Blood Negative (Negative) Urine Nitrite Negative (Negative) Urine Bilirubin Negative (Negative) Urine Urobilinogen <2.0 (<2.0) mg/dL Ur Leukocyte Esterase Negative (Negative) Disposition Is patient prescribed a controlled substance at d/c from ED?: No Time of Disposition: 20:13 <Sarthak Moralez - Last Filed: 07/17/19 20:12> <Girish White - Last Filed: 07/17/19 20:14> Clinical Impression: Abdominal pain, Nausea and vomiting Disposition: HOME SELF-CARE Condition: Good Instructions (If sedation given, give patient instructions): Abdominal Pain ( ED) Additional Instructions: Follow-up for your scheduled appointment for paracentesis. Parents take the prescribed medication as directed. Follow with primary care. Return to emergency department if symptoms worsen. Referrals: Pablo Linn MD [Primary Care Provider] - 1-2 days
[2019-07-17 18:41] LABS: Anisocytosis Slight; Basophils % (A) 0 %; Eosinophils # (A) 0.1 k/uL (0-0.7); Eosinophils % (A) 5 %; HCT 33.2 % (39.0-53.0); HGB 10.8 gm/dL (13.0-17.5); Lymphocytes # (A) 0.5 k/uL (1.0-4.8); Lymphocytes % (A) 26 %; MCH 31.8 pg (25.0-35.0); MCHC 32.6 g/dL (31.0-37.0); MCV 97.6 fL (80.0-100.0); Macrocytosis Slight; Mean Platelet Volume 10.1; Monocytes # (A) 0.2 k/uL (0-1.0); Monocytes % (A) 12 %; Neutrophils # (A) 1.1 k/uL (1.3-7.7); Neutrophils % (A) 55 %; RDW 18.8 % (11.5-15.5)
[2019-07-17 18:43] LABS: Platelet Count 48 k/uL (150-450)
[2019-07-17 18:53] LABS: ALT 22 U/L (4-49); AST 48 U/L (17-59); African American GFR (CKD) >90 (>60 ml/min/1.73 sqM); Albumin 3.3 g/dL (3.5-5.0); Alkaline Phosphatase 63 U/L (38-126); Amylase 125 U/L (30-110); Anion Gap 7 mmol/L; Blood Urea Nitrogen 23 mg/dL (9-20); Calcium 8.7 mg/dL (8.4-10.2); Carbon Dioxide 21 mmol/L (22-30); Chloride 108 mmol/L (98-107); Glucose 273 mg/dL (74-99); Non-African American GFR(CKD) >90 (>60 ml/min/1.73 sqM); Potassium 4.6 mmol/L (3.5-5.1); Sodium 136 mmol/L (137-145); Total Bilirubin 1.7 mg/dL (0.2-1.3); Total Protein 6.7 g/dL (6.3-8.2)
[2019-07-17 19:13] LABS: Appearance,Urine Clear (Clear); Bilirubin,Urine Negative (Negative); Blood,Urine Negative (Negative); Color,Urine Yellow; Glucose,Urine (UA) Trace (Negative); Ketones,Urine Trace (Negative); Leukocyte Esterase,Urine Negative (Negative); Nitrite,Urine Negative (Negative); Protein,Urine Negative (Negative); Specific Gravity,Urine 1.021 (1.001-1.035); Urobilinogen,Urine <2.0 mg/dL (<2.0)
[2019-07-17 19:54] VITALS: RESP 19; TEMP 98.3
[2019-07-17] MEDS ORDERED: SODIUM CHLORIDE 0.9% 500 ML 500 ML IV STA (20:04)
[2019-07-17] MEDS ORDERED: ACET/COD 300 MG/30 MG STARTER PACK 6 TAB BTL PO STA (20:13)
[2019-07-17 21:28] VITALS: BP 129/95; PULSE 66
== END 2019-07-17 21:40 | disposition home or self-care (01) ==
LOC: EC 17:58
DX: R10.13 Epigastric pain (principal); R11.2 Nausea with vomiting, unspecified; M54.9 Dorsalgia, unspecified; K21.9 Gastro-esophageal reflux disease without esophagitis; I10 Essential (primary) hypertension; E07.9 Disorder of thyroid, unspecified; K76.6 Portal hypertension; I85.10 Secondary esophageal varices without bleeding; Z87.19 Personal history of other diseases of the digestive system; Z96.60 Presence of unspecified orthopedic joint implant; Z90.49 Acquired absence of other specified parts of digestive tract; Z87.891 Personal history of nicotine dependence; Z79.890 Hormone replacement therapy; Z98.890 Other specified postprocedural states; Z79.899 Other long term (current) drug therapy
CPT/HCPCS: 99284; 96374; 96375 ×2; 96376; 96361 ×2; 36415; 80053; 82150; 83690; 85025; 81003; J2405; J1170

== ENCOUNTER 2019-07-19 08:19 | Day surgery (SDC) | payer MEDICARE ==
[2019-07-19 10:45] LABS: Platelet Count 54 k/uL (150-450)
[2019-07-19 10:46] LABS: African American GFR (CKD) >90 (>60 ml/min/1.73 sqM); Non-African American GFR(CKD) 85 (>60 ml/min/1.73 sqM)
[2019-07-19 10:49] LABS: INR 1.3 (<1.2); Prothrombin Time 13.1 sec (9.0-12.0)
[2019-07-19 11:07] VITALS: TEMP 97.5
[2019-07-19 11:53] VITALS: RESP 16
[2019-07-19 13:01] VITALS: BP 101/69; PULSE 70
--- NOTE | 2019-07-19 13:57 | US ---
EXAMINATION TYPE: US paracentesis abd w/image DATE OF EXAM: 07/19/2019 COMPARISON: NONE HISTORY: Ascites. PROCEDURE: Maximal barrier technique was utilized. The skin overlying a suitable pocket of fluid was localized with ultrasound and the overlying skin was prepped and draped. Ultrasound was utilized with sterile technique. Lidocaine was used for local anesthesia and a skin gia made with a scalpel. Catheter was advanced under direct ultrasound guidance into a suitable pocket of fluid and approximately 2.7 liter s of serous fluid were removed. Catheter was withdrawn and hemostasis achieved. There is no immedia te complication; the patient is discharged in stable condition. IMPRESSION: STATUS POST ULTRASOUND GUIDED PARACENTESIS FOR PALLIATION OF ASCITES. THIS PROCEDURE WA S PERFORMED BY THE UNDERSIGNED.
== END 2019-07-19 12:35 | disposition home or self-care (01) ==
LOC: RADPROMAIN 08:19
PROVIDERS: ATTEND Physician Assistant
DX: R18.8 Other ascites (principal)
CPT/HCPCS: 36415; 49083; 82565; 85049; 85610

== ENCOUNTER 2019-07-27 19:52 | Emergency (ER) | payer MEDICARE ==
[2019-07-27 20:22] VITALS: RESP 18
[2019-07-27] MEDS ORDERED: HYDROmorphone 1 MG/ML 1 ML SYRINGE IVP STA ×2 (21:29→23:59)
[2019-07-27] MEDS ORDERED: PANTOPRAZOLE 40 MG/10 ML VIAL IVP STA (21:29)
[2019-07-27] MEDS ORDERED: ONDANSETRON 4 MG/2 ML VIAL IVP STA (21:29)
--- NOTE | 2019-07-27 21:34 | ED ---
General Adult HPI - General Chief complaint: Abdominal Pain Stated complaint: abd pain Time Seen by Provider: 07/27/19 21:01 Source: patient, RN notes reviewed Mode of arrival: ambulatory Limitations: no limitations - History of Present Illness Initial comments: Patient is a pleasant 43-year-old male presenting to the emergency department with complaints of abdominal discomfort. Symptoms have been present somewhat for a month, worse the past few days. Patient does have distention secondary to cirrhosis. Patient states discomfort is somewhat like that however also feels somewhat like his pancreatitis. Patient does have a history of previous alcohol problems however is not currently a drinker. Patient states she did not take care of his body well when he was younger. Patient is having decreased oral intake and some nausea. Patient has had previous paracentesis, approximately 10 times - Related Data Home Medications Medication Instructions Recorded Confirmed Rifaximin [Xifaxan] 550 mg PO DAILY 08/02/18 07/19/19 Sucralfate [Carafate] 1 gm PO ACHS 09/22/18 07/19/19 Multivitamins, Thera [Multivitamin 1 tab PO DAILY 10/18/18 07/19/19 (formulary)] Vitamin B Complex 1 cap PO DAILY 10/18/18 07/19/19 Lactulose [Constulose] 20 gm PO QID 03/11/19 07/19/19 Levothyroxine Sodium [Synthroid] 25 mcg PO DAILY 06/27/19 07/19/19 Magnesium 200 mg PO TID 06/27/19 07/19/19 Midodrine HCl [ProAmatine] 10 mg PO TID@0900,1300,1800 06/27/19 07/19/19 Omeprazole 20 mg PO DAILY 06/27/19 07/19/19 Propranolol HCl [Inderal Xl] 80 mg PO DAILY 06/27/19 07/19/19 Spironolactone 100 mg PO BID 07/04/19 07/19/19 Furosemide [Lasix] 40 mg PO BID@0900,1600 07/11/19 07/19/19 Previous Rx's Medication Instructions Recorded Thiamine [Vitamin B-1] 100 mg PO BID-W/MEALS tab 09/24/18 Lipase/Protease/Amylase [Zenpep 2 each PO AC-TID #180 capsule. 07/06/19 5,000 Unit Capsule] Allergies Allergy/AdvReac Type Severity Reaction Status Date / Time No Known Allergies Allergy Verified 07/27/19 20:22 Review of Systems ROS Statement: Those systems with pertinent positive or pertinent negative responses have been documented in the HPI. ROS Other: All systems not noted in ROS Statement are negative. Constitutional: Denies: fever Eyes: Denies: eye pain ENT: Denies: ear pain Respiratory: Denies: cough Cardiovascular: Denies: chest pain Endocrine: Denies: fatigue Gastrointestinal: Reports: abdominal pain, nausea Genitourinary: Denies: dysuria Musculoskeletal: Denies: back pain Skin: Denies: rash Neurological: Denies: weakness Past Medical History Past Medical History: GERD/Reflux, GI Bleed, Hypertension, Liver Disease, Thyroid Disorder Additional Past Medical History / Comment(s): Liver cirrhosis, portal htn, ETOH abuse, esophageal varicies, upper GI bleed, chronic thrombocytopenia, coagulopathy, pancytopenia, ascities, spinal stenosis: back/leg and feet pain, DDD, chronic back pain, neuropathy bilateral legs/feet, falls, bronchitis, 2010 Gu[facility] [place], chronic pancreatitis History of Any Multi-Drug Resistant Organisms: None Reported Past Surgical History: Appendectomy, Joint Replacement Additional Past Surgical History / Comment(s): EGDs paracentesis, back injections, R thumb reattachment, circumcism. Past Anesthesia/Blood Transfusion Reactions: No Reported Reaction Additional Past Anesthesia/Blood Transfusion Reaction / Comment(s): Pt has received blood without reaction. Past Psychological History: No Psychological Hx Reported, Depression Smoking Status: Current some day smoker Past Alcohol Use History: None Reported Past Drug Use History: None Reported - Past Family History Father Family Medical History: Unable to Obtain Additional Family Medical History / Comment(s): Pt does not know his father's medical hx. Mother Family Medical History: No Reported History Additional Family Medical History / Comment(s): Mother is healthy. Brother(s) Additional Family Medical History / Comment(s): Patient has 3 brothers and one suffers from alcohol abuse. 2 brothers have no major medical problems. Patient does not have any sisters. Patient is one daughter 12 years old with no major medical problems. General Exam Limitations: no limitations General appearance: alert, in no apparent distress Head exam: Present: normocephalic Eye exam: Present: PERRL, scleral icterus (Mild) Neck exam: Present: normal inspection Respiratory exam: Present: normal lung sounds bilaterally Cardiovascular Exam: Present: regular rate, normal rhythm Expanded Peripheral pulses: 2+: Dorsalis Pedis (R), Dorsalis Pedis (L) GI/Abdominal exam: Present: soft, distended, tenderness (Mild diffuse tenderness, moderate upper abdomen), normal bowel sounds. Absent: guarding, rebound, rigid, pulsatile mass Extremities exam: Present: normal inspection. Absent: pedal edema, calf tenderness Neurological exam: Present: alert Psychiatric exam: Present: normal affect, normal mood Skin exam: Present: normal color Course Vital Signs 07/27/19 20:19 Temperature 99 F Pulse Rate 73 Respiratory 18 Rate Blood Pressure 113/76 O2 Sat by Pulse 99 Oximetry - Reevaluation(s) Reevaluation #1: 07/27/19 23:32 Patient reevaluated and updated on results. Patient still complains of some di scomfort and requests further medication. Dr. Bateman has been paged covering for Dr. Linn T Medical Decision Making - Medical Decision Making Patient reevaluated and is improved. Only mild discomfort on exam. Patient admits this is chronic discomfort. Case was discussed in detail with Dr. Bateman who is familiar with this patient. He states patient does have paracentesis scheduled for next week and feels he should be able to be discharged and follow- up at that point. Patient is comfortable with discharge home however requests additional narcotic pain medication prior to discharge. - Lab Data Result diagrams: 07/27/19 21:38 07/27/19 21:38 Lab Results 07/27/19 07/27/19 07/27/19 Range/Units 21:38 21:38 21:38 WBC 4.3 (3.8-10.6) k/uL RBC 3.77 L (4.30-5.90) m/uL Hgb 12.0 L (13.0-17.5) gm/dL Hct 36.9 L (39.0-53.0) % MCV 97.9 (80.0-100.0) fL MCH 31.8 (25.0-35.0) pg MCHC 32.5 (31.0-37.0) g/dL RDW 17.4 H (11.5-15.5) % Plt Count 55 L (150-450) k/uL Neutrophils % 67 % Lymphocytes % 19 % Monocytes % 10 % Eosinophils % 2 % Basophils % 0 % Neutrophils # 2.9 (1.3-7.7) k/uL Lymphocytes # 0.8 L (1.0-4.8) k/uL Monocytes # 0.4 (0-1.0) k/uL Eosinophils # 0.1 (0-0.7) k/uL Basophils # 0.0 (0-0.2) k/uL Hypochromasia Slight Anisocytosis Slight Macrocytosis Slight PT 12.8 H (9.0-12.0) sec INR 1.3 H (<1.2) APTT 24.8 (22.0-30.0) sec Sodium 138 (137-145) mmol/L Potassium 5.2 H (3.5-5.1) mmol/L Chloride 107 (98-107) mmol/L Carbon Dioxide 21 L (22-30) mmol/L Anion Gap 10 mmol/L BUN 19 (9-20) mg/dL Creatinine 1.07 (0.66-1.25) mg/dL Est GFR (CKD-EPI)AfAm >90 (>60 ml/min/1.73 sqM) Est GFR (CKD-EPI)NonAf 85 (>60 ml/min/1.73 sqM) Glucose 104 H (74-99) mg/dL Calcium 8.8 (8.4-10.2) mg/dL Total Bilirubin 2.5 H (0.2-1.3) mg/dL AST 29 (17-59) U/L ALT 13 (4-49) U/L Alkaline Phosphatase 72 (38-126) U/L Total Protein 7.5 (6.3-8.2) g/dL Albumin 3.6 (3.5-5.0) g/dL Amylase 126 H (30-110) U/L Lipase 469 H (23-300) U/L Urine Color Urine Appearance (Clear) Urine pH (5.0-8.0) Ur Specific [place] (1.001-1.035) Urine Protein (Negative) Urine Glucose (UA) (Negative) Urine Ketones (Negative) Urine Blood (Negative) Urine Nitrite (Negative) Urine Bilirubin (Negative) Urine Urobilinogen (<2.0) mg/dL Ur Leukocyte Esterase (Negative) Serum Alcohol <10 mg/dL 07/27/19 Range/Units 21:53 WBC (3.8-10.6) k/uL RBC (4.30-5.90) m/uL Hgb (13.0-17.5) gm/dL Hct (39.0-53.0) % MCV (80.0-100.0) fL MCH (25.0-35.0) pg MCHC (31.0-37.0) g/dL RDW (11.5-15.5) % Plt Count (150-450) k/uL Neutrophils % % Lymphocytes % % Monocytes % % Eosinophils % % Basophils % % Neutrophils # (1.3-7.7) k/uL Lymphocytes # (1.0-4.8) k/uL Monocytes # (0-1.0) k/uL Eosinophils # (0-0.7) k/uL Basophils # (0-0.2) k/uL Hypochromasia Anisocytosis Macrocytosis PT (9.0-12.0) sec INR (<1.2) APTT (22.0-30.0) sec Sodium (137-145) mmol/L Potassium (3.5-5.1) mmol/L Chloride (98-107) mmol/L Carbon Dioxide (22-30) mmol/L Anion Gap mmol/L BUN (9-20) mg/dL Creatinine (0.66-1.25) mg/dL Est GFR (CKD-EPI)AfAm (>60 ml/min/1.73 sqM) Est GFR (CKD-EPI)NonAf (>60 ml/min/1.73 sqM) Glucose (74-99) mg/dL Calcium (8.4-10.2) mg/dL Total Bilirubin (0.2-1.3) mg/dL AST (17-59) U/L ALT (4-49) U/L Alkaline Phosphatase (38-126) U/L Total Protein (6.3-8.2) g/dL Albumin (3.5-5.0) g/dL Amylase (30-110) U/L Lipase (23-300) U/L Urine Color Dark Yellow Urine Appearance Clear (Clear) Urine pH 6.5 (5.0-8.0) Ur Specific [place] 1.027 (1.001-1.035) Urine Protein Trace H (Negative) Urine Glucose (UA) Negative (Negative) Urine Ketones Trace H (Negative) Urine Blood Negative (Negative) Urine Nitrite Negative (Negative) Urine Bilirubin Negative (Negative) Urine Urobilinogen 6.0 (<2.0) mg/dL Ur Leukocyte Esterase Negative (Negative) Serum Alcohol mg/dL Disposition Clinical Impression: Ascites, Chronic pain Disposition: HOME SELF-CARE Condition: Stable Instructions (If sedation given, give patient instructions): Ascites (ED) Additional Instructions: Please follow-up with primary care physician and GI in the next few days for recheck. Paracentesis as scheduled next week. Return for fever, vomiting, increased pain, increased swelling, worsening symptoms or other concerns. Is patient prescribed a controlled substance at d/c from ED?: No Referrals: Pablo Linn MD [Primary Care Provider] - 1-2 days Macy Leiva MD [STAFF PHYSICIAN] - 1-2 days Time of Disposition: 23:59
[2019-07-27 21:56] LABS: Anisocytosis Slight; Basophils % (A) 0 %; Eosinophils # (A) 0.1 k/uL (0-0.7); Eosinophils % (A) 2 %; HCT 36.9 % (39.0-53.0); Hypochromasia Slight; Lymphocytes # (A) 0.8 k/uL (1.0-4.8); Lymphocytes % (A) 19 %; MCH 31.8 pg (25.0-35.0); MCHC 32.5 g/dL (31.0-37.0); MCV 97.9 fL (80.0-100.0); Macrocytosis Slight; Mean Platelet Volume 8.2; Monocytes # (A) 0.4 k/uL (0-1.0); Monocytes % (A) 10 %; Neutrophils # (A) 2.9 k/uL (1.3-7.7); Neutrophils % (A) 67 %; Platelet Count 55 k/uL (150-450); RBC 3.77 m/uL (4.30-5.90); RDW 17.4 % (11.5-15.5); WBC 4.3 k/uL (3.8-10.6)
[2019-07-27 22:01] LABS: INR 1.3 (<1.2); Partial Thromboplastin Time 24.8 sec (22.0-30.0); Prothrombin Time 12.8 sec (9.0-12.0)
[2019-07-27 22:05] LABS: Appearance,Urine Clear (Clear); Bilirubin,Urine Negative (Negative); Blood,Urine Negative (Negative); Color,Urine Dark Yellow; Glucose,Urine (UA) Negative (Negative); Ketones,Urine Trace (Negative); Leukocyte Esterase,Urine Negative (Negative); Nitrite,Urine Negative (Negative); PH, Urine 6.5 (5.0-8.0); Protein,Urine Trace (Negative); Specific Gravity,Urine 1.027 (1.001-1.035)
[2019-07-27 22:07] LABS: ALT 13 U/L (4-49); AST 29 U/L (17-59); African American GFR (CKD) >90 (>60 ml/min/1.73 sqM); Albumin 3.6 g/dL (3.5-5.0); Alcohol <10 mg/dL; Alkaline Phosphatase 72 U/L (38-126); Amylase 126 U/L (30-110); Anion Gap 10 mmol/L; Blood Urea Nitrogen 19 mg/dL (9-20); Calcium 8.8 mg/dL (8.4-10.2); Carbon Dioxide 21 mmol/L (22-30); Chloride 107 mmol/L (98-107); Glucose 104 mg/dL (74-99); Non-African American GFR(CKD) 85 (>60 ml/min/1.73 sqM); Potassium 5.2 mmol/L (3.5-5.1); Sodium 138 mmol/L (137-145); Total Bilirubin 2.5 mg/dL (0.2-1.3); Total Protein 7.5 g/dL (6.3-8.2)
--- NOTE | 2019-07-27 22:18 | XR ---
EXAMINATION TYPE: XR KUB DATE OF EXAM: 07/27/2019 COMPARISON: 07/04/2019 HISTORY: Abdominal pain TECHNIQUE: FINDINGS: 2 views upright were obtained. There is increased density over the abdomen suggestive of as cites. There is no sign of intestinal obstruction or pneumoperitoneum. Fecal pattern is normal. There are no pathologic calcifications over the kidneys. IMPRESSION: Increased density suggestive of new abdominal ascites fluid compared to last exam.
[2019-07-28 00:42] VITALS: BP 132/82; PULSE 71; TEMP 98.4
== END 2019-07-28 00:42 | disposition home or self-care (01) ==
LOC: EC 19:52
DX: R18.8 Other ascites (principal); G89.29 Other chronic pain; R10.9 Unspecified abdominal pain; R11.0 Nausea; K21.9 Gastro-esophageal reflux disease without esophagitis; K74.60 Unspecified cirrhosis of liver; K86.1 Other chronic pancreatitis; I10 Essential (primary) hypertension; E07.9 Disorder of thyroid, unspecified; F17.200 Nicotine dependence, unspecified, uncomplicated; Z79.899 Other long term (current) drug therapy; Z87.19 Personal history of other diseases of the digestive system; Z98.890 Other specified postprocedural states
CPT/HCPCS: 36415; 80053; 82150; 83690; 85025; 85610; 85730; 81003; 74018; 99284; 96374; 96375 ×2; 96376; G0480; J2405; J1170; C9113; 80320

== ENCOUNTER 2019-07-28 16:45 | Emergency (ER) | payer MEDICARE ==
[2019-07-28 16:50] VITALS: RESP 20; TEMP 98.3
[2019-07-28] MEDS ORDERED: ONDANSETRON 4 MG/2 ML VIAL IVP STA (17:08)
[2019-07-28] MEDS ORDERED: PANTOPRAZOLE 40 MG/10 ML VIAL IVP STA (17:08)
[2019-07-28] MEDS ORDERED: HYDROmorphone 0.5 MG/0.5 ML SYRINGE IVP STA (17:08)
[2019-07-28] MEDS ORDERED: SODIUM CHLORIDE 0.9% 1,000 ML IV STA ×2 (17:08)
--- NOTE | 2019-07-28 17:14 | ED ---
Abdominal Pain HPI - General Chief Complaint: Abdominal Pain Stated Complaint: Abd pain Time Seen by Provider: 07/28/19 16:57 Source: patient, RN notes reviewed, old records reviewed Mode of arrival: ambulatory Limitations: no limitations - History of Present Illness Initial Comments: This Patient is a 43-year-old male who presents emergency room stay with abdominal distention complaining of worse abdominal pain. Patient states that he is scheduled Paracentesis due to cirrhosis and history of alcohol abuse in the past. He denies any recent alcohol use. He believes that he vomited most with pancreatitis as well as ascites causing his abdominal pain chronically. Patient states that he was here in the emergency department yesterday and was given pain management at that time and advised follow-up. He reports the pain worsens when he returned. Patient states that he has no chest pain, shortness of breath. Patient's last paracentesis was one week ago. - Related Data Home Medications Medication Instructions Recorded Confirmed Rifaximin [Xifaxan] 550 mg PO DAILY 08/02/18 07/19/19 Sucralfate [Carafate] 1 gm PO ACHS 09/22/18 07/19/19 Multivitamins, Thera [Multivitamin 1 tab PO DAILY 10/18/18 07/19/19 (formulary)] Vitamin B Complex 1 cap PO DAILY 10/18/18 07/19/19 Lactulose [Constulose] 20 gm PO QID 03/11/19 07/19/19 Levothyroxine Sodium [Synthroid] 25 mcg PO DAILY 06/27/19 07/19/19 Magnesium 200 mg PO TID 06/27/19 07/19/19 Midodrine HCl [ProAmatine] 10 mg PO TID@0900,1300,1800 06/27/19 07/19/19 Omeprazole 20 mg PO DAILY 06/27/19 07/19/19 Propranolol HCl [Inderal Xl] 80 mg PO DAILY 06/27/19 07/19/19 Spironolactone 100 mg PO BID 07/04/19 07/19/19 Furosemide [Lasix] 40 mg PO BID@0900,1600 07/11/19 07/19/19 Previous Rx's Medication Instructions Recorded Thiamine [Vitamin B-1] 100 mg PO BID-W/MEALS tab 09/24/18 Lipase/Protease/Amylase [Zenpep Dr 2 each PO AC-TID #180 capsule. 07/06/19 5,000 Unit Capsule] Allergies Allergy/AdvReac Type Severity Reaction Status Date / Time No Known Allergies Allergy Verified 07/28/19 16:50 Review of Systems ROS Statement: Those systems with pertinent positive or pertinent negative responses have been documented in the HPI. ROS Other: All systems not noted in ROS Statement are negative. Past Medical History Past Medical History: GERD/Reflux, GI Bleed, Hypertension, Liver Disease, Thyroid Disorder Additional Past Medical History / Comment(s): Liver cirrhosis, portal htn, ETOH abuse, esophageal varicies, upper GI bleed, chronic thrombocytopenia, coagulopathy, pancytopenia, ascities, spinal stenosis: back/leg and feet pain, DDD, chronic back pain, neuropathy bilateral legs/feet, falls, bronchitis, 2010 [facility] [place], chronic pancreatitis History of Any Multi-Drug Resistant Organisms: None Reported Past Surgical History: Appendectomy, Joint Replacement Additional Past Surgical History / Comment(s): EGDs paracentesis, back injection s, R thumb reattachment, circumcism. Past Anesthesia/Blood Transfusion Reactions: No Reported Reaction Additional Past Anesthesia/Blood Transfusion Reaction / Comment(s): Pt has received blood without reaction. Past Psychological History: No Psychological Hx Reported, Depression Smoking Status: Current some day smoker Past Alcohol Use History: None Reported Past Drug Use History: None Reported - Past Family History Father Family Medical History: Unable to Obtain Additional Family Medical History / Comment(s): Pt does not know his father's medical hx. Mother Family Medical History: No Reported History Additional Family Medical History / Comment(s): Mother is healthy. Brother(s) Additional Family Medical History / Comment(s): Patient has 3 brothers and one suffers from alcohol abuse. 2 brothers have no major medical problems. Patient does not have any sisters. Patient is one daughter 12 years old with no major medical problems. General Exam - General Exam Comments Initial Comments: 43-year-old male. Alert and oriented 3. Patient appears in no significant distress at this time. Limitations: no limitations General appearance: alert, in no apparent distress Head exam: Present: atraumatic, normocephalic, normal inspection Eye exam: Present: normal appearance, PERRL, EOMI. Absent: scleral icterus, conjunctival injection, periorbital swelling ENT exam: Present: normal exam, mucous membranes moist Neck exam: Present: normal inspection. Absent: tenderness, meningismus, lymphadenopathy Respiratory exam: Present: normal lung sounds bilaterally. Absent: respiratory distress, wheezes, rales, rhonchi, stridor Cardiovascular Exam: Present: regular rate, normal rhythm, normal heart sounds. Absent: systolic murmur, diastolic murmur, rubs, gallop, clicks GI/Abdominal exam: Present: soft, distended, normal bowel sounds. Absent: tenderness, guarding, rebound, rigid Extremities exam: Present: normal inspection, full ROM, normal capillary refill. Absent: tenderness, pedal edema, joint swelling, calf tenderness Back exam: Present: normal inspection Neurological exam: Present: alert, oriented X3, CN II-XII intact Course Vital Signs 07/28/19 07/28/19 07/28/19 16:46 16:50 17:50 Temperature 98.3 F Pulse Rate 83 70 Respiratory 20 20 20 Rate Blood Pressure 111/65 123/74 O2 Sat by Pulse 99 100 Oximetry 07/28/19 18:00 Temperature Pulse Rate 70 Respiratory 20 Rate Blood Pressure 123/74 O2 Sat by Pulse 100 Oximetry Medical Decision Making - Medical Decision Making Patient is a 43-year-old female who presents emergency department today for evaluation with complaints of normal, pink pain beginning to be related pancreatitis. Patient has had no vomiting emergency department. He does have evidence of ascites. At this time patient's labwork was reviewed. Does have a slightly increased pancreas enzymes and amylase 300 and lipase of 500. Patient's labs otherwise were seen not significant changed. At this time Patient states he is waiting to get a paracentesis scheduled for next Thursday. On reevaluation is resting comfortably but appears in no acute distress. I discussed the case with Dr. Martinez and witha lab changes Patient does not meet increased Patient criteria for admission at this time. I did discuss giving Patient one dose of something for pain before plan to discharge. Patient is agreeable to this plan. I advised Patient follow-up with primary care doctor to schedule some appointments with pain management as well as continuing to complete his scheduled course for paracentesis next week. - Lab Data Result diagrams: 07/28/19 17:44 07/28/19 17:44 Lab Results 05/28/20 05/28/20 05/28/20 Range/Units 17:44 17:44 17:44 WBC 3.2 L (3.8-10.6) k/uL RBC 3.93 L (4.30-5.90) m/uL Hgb 12.4 L (13.0-17.5) gm/dL Hct 37.7 L (39.0-53.0) % MCV 96.2 (80.0-100.0) fL MCH 31.7 (25.0-35.0) pg MCHC 33.0 (31.0-37.0) g/dL RDW 17.3 H (11.5-15.5) % Plt Count 43 L (150-450) k/uL Neutrophils % 65 % Lymphocytes % 22 % Monocytes % 8 % Eosinophils % 2 % Basophils % 0 % Neutrophils # 2.1 (1.3-7.7) k/uL Lymphocytes # 0.7 L (1.0-4.8) k/uL Monocytes # 0.3 (0-1.0) k/uL Eosinophils # 0.1 (0-0.7) k/uL Basophils # 0.0 (0-0.2) k/uL Anisocytosis Slight Macrocytosis Slight PT 13.3 H (9.0-12.0) sec INR 1.3 H (<1.2) APTT 25.4 (22.0-30.0) sec Sodium 137 (137-145) mmol/L Potassium 4.8 (3.5-5.1) mmol/L Chloride 109 H (98-107) mmol/L Carbon Dioxide 21 L (22-30) mmol/L Anion Gap 7 mmol/L BUN 20 (9-20) mg/dL Creatinine 1.06 (0.66-1.25) mg/dL Est GFR (CKD-EPI)AfAm >90 (>60 ml/min/1.73 sqM) Est GFR (CKD-EPI)NonAf 86 (>60 ml/min/1.73 sqM) Glucose 145 H (74-99) mg/dL Calcium 8.6 (8.4-10.2) mg/dL Total Bilirubin 3.0 H (0.2-1.3) mg/dL AST 32 (17-59) U/L ALT 12 (4-49) U/L Alkaline Phosphatase 67 (38-126) U/L Total Protein 6.7 (6.3-8.2) g/dL Albumin 3.3 L (3.5-5.0) g/dL Amylase 119 H (30-110) U/L Lipase 554 H (23-300) U/L Urine Color Urine Appearance (Clear) Urine pH (5.0-8.0) Ur Specific [place] (1.001-1.035) Urine Protein (Negative) Urine Glucose (UA) (Negative) Urine Ketones (Negative) Urine Blood (Negative) Urine Nitrite (Negative) Urine Bilirubin (Negative) Urine Urobilinogen (<2.0) mg/dL Ur Leukocyte Esterase (Negative) Serum Alcohol <10 mg/dL 07/28/19 Range/Units 18:10 WBC (3.8-10.6) k/uL RBC (4.30-5.90) m/uL Hgb (13.0-17.5) gm/dL Hct (39.0-53.0) % MCV (80.0-100.0) fL MCH (25.0-35.0) pg MCHC (31.0-37.0) g/dL RDW (11.5-15.5) % Plt Count (150-450) k/uL Neutrophils % % Lymphocytes % % Monocytes % % Eosinophils % % Basophils % % Neutrophils # (1.3-7.7) k/uL Lymphocytes # (1.0-4.8) k/uL Monocytes # (0-1.0) k/uL Eosinophils # (0-0.7) k/uL Basophils # (0-0.2) k/uL Anisocytosis Macrocytosis PT (9.0-12.0) sec INR (<1.2) APTT (22.0-30.0) sec Sodium (137-145) mmol/L Potassium (3.5-5.1) mmol/L Chloride (98-107) mmol/L Carbon Dioxide (22-30) mmol/L Anion Gap mmol/L BUN (9-20) mg/dL Creatinine (0.66-1.25) mg/dL Est GFR (CKD-EPI)AfAm (>60 ml/min/1.73 sqM) Est GFR (CKD-EPI)NonAf (>60 ml/min/1.73 sqM) Glucose (74-99) mg/dL Calcium (8.4-10.2) mg/dL Total Bilirubin (0.2-1.3) mg/dL AST (17-59) U/L ALT (4-49) U/L Alkaline Phosphatase (38-126) U/L Total Protein (6.3-8.2) g/dL Albumin (3.5-5.0) g/dL Amylase (30-110) U/L Lipase (23-300) U/L Urine Color Yellow Urine Appearance Clear (Clear) Urine pH 6.5 (5.0-8.0) Ur Specific [place] 1.023 (1.001-1.035) Urine Protein Negative (Negative) Urine Glucose (UA) Negative (Negative) Urine Ketones Negative (Negative) Urine Blood Negative (Negative) Urine Nitrite Negative (Negative) Urine Bilirubin Negative (Negative) Urine Urobilinogen 6.0 (<2.0) mg/dL Ur Leukocyte Esterase Negative (Negative) Serum Alcohol mg/dL 07/28/19 18:12 EKG shows normal sinus rhythm with low-voltage QRS. Nonspecific T wave abnormality. Abnormal EKG. Majority of 76 bpm. Was 1:30 milliseconds. Respirations 84 ms. QT QTc is 432/486 no seconds. No evidence of ST elevation. Disposition Clinical Impression: Abdominal pain, Chronic pancreatitis Disposition: HOME SELF-CARE Condition: Good Instructions (If sedation given, give patient instructions): Abdominal Pain (ED) Additional Instructions: Please use medication as discussed. Please follow up with family doctor if symptoms have not improved over the next two days. Please return to the emergency room if your symptoms increase or worsen or for any other concerns. Is patient prescribed a controlled substance at d/c from ED?: No Referrals: Pablo Linn MD [Primary Care Provider] - 1-2 days Time of Disposition: 18:54
[2019-07-28 17:52] LABS: Anisocytosis Slight; Basophils % (A) 0 %; Eosinophils # (A) 0.1 k/uL (0-0.7); Eosinophils % (A) 2 %; HCT 37.7 % (39.0-53.0); HGB 12.4 gm/dL (13.0-17.5); Lymphocytes # (A) 0.7 k/uL (1.0-4.8); Lymphocytes % (A) 22 %; MCH 31.7 pg (25.0-35.0); MCV 96.2 fL (80.0-100.0); Macrocytosis Slight; Mean Platelet Volume 9.3; Monocytes # (A) 0.3 k/uL (0-1.0); Monocytes % (A) 8 %; Neutrophils # (A) 2.1 k/uL (1.3-7.7); Neutrophils % (A) 65 %; RBC 3.93 m/uL (4.30-5.90); RDW 17.3 % (11.5-15.5); WBC 3.2 k/uL (3.8-10.6)
[2019-07-28 17:54] LABS: Platelet Count 43 k/uL (150-450)
[2019-07-28 18:02] LABS: ALT 12 U/L (4-49); AST 32 U/L (17-59); African American GFR (CKD) >90 (>60 ml/min/1.73 sqM); Albumin 3.3 g/dL (3.5-5.0); Alcohol <10 mg/dL; Alkaline Phosphatase 67 U/L (38-126); Amylase 119 U/L (30-110); Anion Gap 7 mmol/L; Blood Urea Nitrogen 20 mg/dL (9-20); Calcium 8.6 mg/dL (8.4-10.2); Carbon Dioxide 21 mmol/L (22-30); Chloride 109 mmol/L (98-107); Glucose 145 mg/dL (74-99); INR 1.3 (<1.2); Non-African American GFR(CKD) 86 (>60 ml/min/1.73 sqM); Partial Thromboplastin Time 25.4 sec (22.0-30.0); Potassium 4.8 mmol/L (3.5-5.1); Prothrombin Time 13.3 sec (9.0-12.0); Sodium 137 mmol/L (137-145); Total Protein 6.7 g/dL (6.3-8.2)
[2019-07-28 18:33] LABS: Appearance,Urine Clear (Clear); Bilirubin,Urine Negative (Negative); Blood,Urine Negative (Negative); Color,Urine Yellow; Glucose,Urine (UA) Negative (Negative); Ketones,Urine Negative (Negative); Leukocyte Esterase,Urine Negative (Negative); Nitrite,Urine Negative (Negative); PH, Urine 6.5 (5.0-8.0); Protein,Urine Negative (Negative); Specific Gravity,Urine 1.023 (1.001-1.035)
[2019-07-28] MEDS ORDERED: HYDROmorphone 1 MG/ML 1 ML SYRINGE IVP STA (18:50)
[2019-07-28] MEDS ORDERED: ACET/COD 300 MG/30 MG STARTER PACK 6 TAB BTL PO STA (18:51)
[2019-07-28 19:21] VITALS: BP 118/87; PULSE 68
== END 2019-07-28 19:23 | disposition home or self-care (01) ==
LOC: EC 16:45
DX: K86.1 Other chronic pancreatitis (principal); R10.9 Unspecified abdominal pain; R18.8 Other ascites; R74.8 Abnormal levels of other serum enzymes; K21.9 Gastro-esophageal reflux disease without esophagitis; K74.60 Unspecified cirrhosis of liver; F10.11 Alcohol abuse, in remission; I10 Essential (primary) hypertension; F32.9 Major depressive disorder, single episode, unspecified; E07.9 Disorder of thyroid, unspecified; F17.200 Nicotine dependence, unspecified, uncomplicated; Z79.899 Other long term (current) drug therapy; Z79.890 Hormone replacement therapy; Z87.19 Personal history of other diseases of the digestive system; Z98.890 Other specified postprocedural states
CPT/HCPCS: 36415; 93005; 80053; 82150; 83690; 85025; 85610; 85730; 81003; 99284; 96374; 96375 ×2; 96376; 96361 ×2; G0480; J2405; J1170 ×2; C9113; 80320

== ENCOUNTER → 2019-08-01 | Outpatient (CLI) | payer MEDICARE | END | disposition home or self-care (01) | LOC: LABWHC1 08:13 | PROVIDERS: ATTEND Internal Medicine Gastroenterology | DX: Z11.59 Encounter for screening for other viral diseases (principal) ==

== ENCOUNTER 2019-08-03 08:14 | Day surgery (SDC) | payer MEDICARE ==
[2019-08-03 09:00] LABS: Mean Platelet Volume 8.3
[2019-08-03 09:01] LABS: INR 1.4 (<1.2); Prothrombin Time 13.5 sec (9.0-12.0)
[2019-08-03 09:02] LABS: Platelet Count 40 k/uL (150-450)
[2019-08-03 09:11] LABS: African American GFR (CKD) >90 (>60 ml/min/1.73 sqM); Non-African American GFR(CKD) >90 (>60 ml/min/1.73 sqM)
[2019-08-03 09:54] VITALS: RESP 16
[2019-08-03] MEDS: ALBUMIN HUMAN 25% 50 ML in EMPTY BAG 1 BAG IVPB SCH ×2 (10:14→10:32)
[2019-08-03 11:10] VITALS: TEMP 98.5
[2019-08-03 11:12] VITALS: BP 112/75; PULSE 91
--- NOTE | 2019-08-03 12:02 | US ---
Ultrasound-guided paracentesis. DATE OF EXAM: 08/03/2019 CLINICAL HISTORY: Ascites The procedure was discussed with the patient. The risks, complications including life-threatening ble eding given the patient's platelet level, benefits, and alternatives were discussed and any questions were answered. Informed consent was obtained. The patient was placed supine on the ultrasound table and prepped and draped in the usual sterile fashion. All elements of maximal barrier technique were utilized. Under ultrasound guidance, access into the right lower quadrant was obtained, via the paracentesis catheter system and direct ultrasound guidanc e. The patient received preprocedural and intraprocedural platelets therapy. Approximately 4.7 liters of straw-colored fluid was removed. The patient was stable throughout the pr ocedure and remained stable upon discharge from Department of Radiology. IMPRESSION: Successful paracentesis under ultrasound guidance.
== END 2019-08-03 11:10 | disposition home or self-care (01) ==
LOC: RADPROMAIN 08:14
PROVIDERS: ATTEND Internal Medicine Gastroenterology
DX: R18.8 Other ascites (principal); D69.6 Thrombocytopenia, unspecified
CPT/HCPCS: 82565; 85049; 85610; 36415; 49083; P9035; P9047

== ENCOUNTER 2019-08-17 08:12 | Day surgery (SDC) | payer MEDICARE ==
[2019-08-17 08:49] LABS: Mean Platelet Volume 8.3
[2019-08-17 08:56] LABS: Platelet Count 56 k/uL (150-450)
[2019-08-17 09:04] VITALS: TEMP 98.8
[2019-08-17 09:06] LABS: African American GFR (CKD) >90 (>60 ml/min/1.73 sqM); INR 1.4 (<1.2); Non-African American GFR(CKD) >90 (>60 ml/min/1.73 sqM); Prothrombin Time 13.6 sec (9.0-12.0)
[2019-08-17 09:40] VITALS: RESP 16
[2019-08-17 09:50] VITALS: BP 101/69; PULSE 73
[2019-08-17] MEDS: ALBUMIN HUMAN 25% 50 ML in EMPTY BAG 1 BAG IVPB SCH (10:37)
--- NOTE | 2019-08-17 11:40 | US ---
EXAMINATION TYPE: US paracentesis abd w/image DATE OF EXAM: 08/17/2019 COMPARISON: NONE HISTORY: Ascites. PROCEDURE: Maximal barrier technique was utilized. The skin overlying a suitable pocket of fluid was localized with ultrasound and the overlying skin was prepped and draped. Ultrasound was utilized with sterile technique. Lidocaine was used for local anesthesia and a skin gia made with a scalpel. Catheter was advanced under direct ultrasound guidance into a suitable pocket of fluid and approximately 3.4 liter s of serous fluid were removed. Catheter was withdrawn and hemostasis achieved. There is no immedia te complication; the patient is discharged in stable condition. IMPRESSION: STATUS POST ULTRASOUND GUIDED PARACENTESIS FOR PALLIATION OF ASCITES. THIS PROCEDURE WA S PERFORMED BY THE UNDERSIGNED.
== END 2019-08-17 10:32 | disposition home or self-care (01) ==
LOC: RADPROMAIN 08:12
PROVIDERS: ATTEND Physician Assistant
DX: R18.8 Other ascites (principal)
CPT/HCPCS: 36415; 49083; 82565; 85049; 85610

== ENCOUNTER 2019-08-31 08:08 | Day surgery (SDC) | payer MEDICARE ==
[2019-08-31 08:34] VITALS: BP 102/71; PULSE 64; RESP 20; TEMP 98.3
--- NOTE | 2019-08-31 09:08 | US ---
Ultrasound-guided paracentesis. DATE OF EXAM: 08/31/2019 CLINICAL HISTORY: Ascites Preliminary ultrasound was performed and there is a small amount of ascites. The patient said he did not feel that he was distended and requested the procedure not be performed. IMPRESSION: Patient deferred procedure.
== END 2019-08-31 08:50 | disposition home or self-care (01) ==
LOC: RADPROMAIN 08:08
PROVIDERS: ATTEND Internal Medicine Gastroenterology
DX: R18.8 Other ascites (principal); Z53.8 Procedure and treatment not carried out for other reasons
CPT/HCPCS: 76705

== ENCOUNTER 2019-09-14 11:25 | Day surgery (SDC) | payer MEDICARE ==
[2019-09-14 12:17] VITALS: BP 97/56; PULSE 68; RESP 16; TEMP 98.7
--- NOTE | 2019-09-14 14:33 | US ---
EXAMINATION TYPE: US abdomen limited DATE OF EXAM: 09/14/2019 COMPARISON: Ultrasound 08/31/2019 CLINICAL HISTORY: R18.8 Ascites. Patient scheduled for para, he felt he didn't have enough fluid to drain. Limited scanning performed in all 4 quadrants. IMPRESSION: There is similar volume ascites to prior exam
== END 2019-09-14 12:05 | disposition home or self-care (01) ==
LOC: RADPROMAIN 11:25
PROVIDERS: ATTEND Internal Medicine Gastroenterology
DX: R18.8 Other ascites (principal); D69.6 Thrombocytopenia, unspecified
CPT/HCPCS: 76705

== ENCOUNTER 2019-09-20 21:49 | Emergency (ER) | payer MEDICARE ==
[2019-09-20 22:38] LABS: Anisocytosis Slight; Basophils % (A) 1 %; Eosinophils # (A) 0.1 k/uL (0-0.7); Eosinophils % (A) 2 %; HCT 37.8 % (39.0-53.0); HGB 12.6 gm/dL (13.0-17.5); Lymphocytes # (A) 0.7 k/uL (1.0-4.8); Lymphocytes % (A) 16 %; MCH 31.8 pg (25.0-35.0); MCHC 33.4 g/dL (31.0-37.0); MCV 95.3 fL (80.0-100.0); Macrocytosis Slight; Monocytes # (A) 0.5 k/uL (0-1.0); Monocytes % (A) 11 %; Neutrophils % (A) 69 %; RBC 3.97 m/uL (4.30-5.90); RDW 17.6 % (11.5-15.5); WBC 4.4 k/uL (3.8-10.6)
--- NOTE | 2019-09-20 22:44 | XR ---
EXAMINATION TYPE: XR KUB DATE OF EXAM: 09/20/2019 COMPARISON: 07/27/2019 HISTORY: Abdominal pain TECHNIQUE: 2 views upright FINDINGS: There is increased density over the abdomen that is is suggestive of ascites fluid. I see n o evidence of free air. There is no evidence of a mechanical bowel obstruction. There is gas down to the rectum. There is slight blunting of the costophrenic angles. There are no pathologic calcificatio ns over the kidneys. IMPRESSION: There is probably abdominal ascites. There are small bilateral pleural effusions increas ed compared to old exam. No bowel obstruction.
[2019-09-20 22:49] LABS: Platelet Count 59 k/uL (150-450)
[2019-09-20 22:52] LABS: Appearance,Urine Clear (Clear); Bilirubin,Urine Negative (Negative); Blood,Urine Negative (Negative); Color,Urine Light Yellow; Glucose,Urine (UA) Negative (Negative); Ketones,Urine Negative (Negative); Leukocyte Esterase,Urine Negative (Negative); Nitrite,Urine Negative (Negative); Protein,Urine Negative (Negative); Specific Gravity,Urine 1.007 (1.001-1.035); Urobilinogen,Urine <2.0 mg/dL (<2.0)
[2019-09-20] MEDS ORDERED: MORPHINE SULFATE 4 MG/ML SYRINGE IV STA ×2 (22:54→23:25)
[2019-09-20 22:55] LABS: ALT 10 U/L (4-49); AST 26 U/L (17-59); African American GFR (CKD) >90 (>60 ml/min/1.73 sqM); Albumin 3.7 g/dL (3.5-5.0); Alkaline Phosphatase 58 U/L (38-126); Anion Gap 9 mmol/L; Blood Urea Nitrogen 26 mg/dL (9-20); Calcium 8.8 mg/dL (8.4-10.2); Carbon Dioxide 23 mmol/L (22-30); Chloride 104 mmol/L (98-107); Glucose 160 mg/dL (74-99); Lipase 592 U/L (23-300); Non-African American GFR(CKD) 79 (>60 ml/min/1.73 sqM); Potassium 3.9 mmol/L (3.5-5.1); Sodium 136 mmol/L (137-145); Total Bilirubin 2.4 mg/dL (0.2-1.3); Total Protein 7.1 g/dL (6.3-8.2)
--- NOTE | 2019-09-20 23:34 | ED ---
General Adult HPI - General Chief complaint: Abdominal Pain Stated complaint: Vomiting Time Seen by Provider: 09/20/19 22:19 Source: patient, RN notes reviewed, old records reviewed Mode of arrival: wheelchair Limitations: no limitations - History of Present Illness Initial comments: 43-year-old male patient passed history of end-stage liver disease presents to ED complaining of epigastric abdominal pain. Patient does have chronic abdominal pain however then worse for the last 2 days. Epigastric in nature. Some nausea and vomiting. No hematemesis emesis no bloody diarrhea. Denies any other complaints. Systemic: Pt denies fatigue, fever/chills, rash. Pt denies weakness, night sweats, weight loss. Neuro: Pt denies headache, visual disturbances, syncope or pre-syncope. HEENT: Pt denies ocular discharge or irritation, otalgia, rhinorrhea, phar yngitis or notable lymphadenopathy. Cardiopulmonary: Pt denies chest pain, SOB, heart palpitations, dyspnea on exertion. Abdominal/GI: Pt denies n/v/d. : Pt denies dysuria, burning w/ urination, frequency/urgency. Denies new onset urinary or bowel incontinence. MSK: Pt denies myalgia, loss of strength or function in extremities. Neuro: Pt denies new onset weakness, paresthesias. - Related Data Home Medications Medication Instructions Recorded Confirmed Rifaximin [Xifaxan] 550 mg PO DAILY 08/02/18 09/20/19 Sucralfate [Carafate] 1 gm PO ACHS 09/22/18 09/20/19 Multivitamins, Thera [Multivitamin 1 tab PO DAILY 10/18/18 09/20/19 (formulary)] Vitamin B Complex 1 cap PO DAILY 10/18/18 09/20/19 Lactulose [Constulose] 20 gm PO TID 03/11/19 09/20/19 Levothyroxine Sodium [Synthroid] 25 mcg PO DAILY 06/27/19 09/20/19 Magnesium 200 mg PO TID 06/27/19 09/20/19 Midodrine HCl [ProAmatine] 10 mg PO TID@0900,1300,1800 06/27/19 09/20/19 Omeprazole 20 mg PO DAILY 06/27/19 09/20/19 Propranolol HCl [Inderal Xl] 80 mg PO DAILY 06/27/19 09/20/19 Spironolactone 100 mg PO BID 07/04/19 09/20/19 Furosemide [Lasix] 40 mg PO BID@0900,1600 07/11/19 09/20/19 Previous Rx's Medication Instructions Recorded Thiamine [Vitamin B-1] 100 mg PO BID-W/MEALS tab 09/24/18 Lipase/Protease/Amylase [Robert Blunt 2 each PO AC-TID #180 capsule. 07/06/19 5,000 Unit Capsule] Allergies Allergy/AdvReac Type Severity Reaction Status Date / Time No Known Allergies Allergy Verified 09/20/19 23:38 Review of Systems ROS Statement: Those systems with pertinent positive or pertinent negative responses have been documented in the HPI. ROS Other: All systems not noted in ROS Statement are negative. Past Medical History Past Medical History: GERD/Reflux, GI Bleed, Hypertension, Liver Disease, Thyroid Disorder Additional Past Medical History / Comment(s): Liver cirrhosis, portal htn, ETOH abuse, esophageal varicies, upper GI bleed, chronic thrombocytopenia, coagulopathy, pancytopenia, ascities, spinal stenosis: back/leg and feet pain, DDD, chronic back pain, neuropathy bilateral legs/feet, falls, bronchitis, 2010 [place], chronic pancreatitis History of Any Multi-Drug Resistant Organisms: None Reported Past Surgical History: Appendectomy, Joint Replacement Additional Past Surgical History / Comment(s): EGDs, paracentesis, back injections, R thumb reattachment, circumcism. Past Anesthesia/Blood Transfusion Reactions: No Reported Reaction Additional Past Anesthesia/Blood Transfusion Reaction / Comment(s): Pt has received blood without reaction. Past Psychological History: No Psychological Hx Reported, Depression Smoking Status: Current some day smoker Past Alcohol Use History: None Reported Past Drug Use History: Marijuana - Past Family History Father Family Medical History: Unable to Obtain Additional Family Medical History / Comment(s): Pt does not know his father's medical hx. Mother Family Medical History: No Reported History Additional Family Medical History / Comment(s): Mother is healthy. Brother(s) Additional Family Medical History / Comment(s): Patient has 3 brothers and one suffers from alcohol abuse. 2 brothers have no major medical problems. Patient does not have any sisters. Patient is one daughter 12 years old with no major medical problems. General Exam - General Exam Comments Initial Comments: Constitutional: NAD, AOX3, Pt has pleasant affect. HEENT: NC/AT, trachea midline, neck supple, no lymphadenopathy.External ears appear normal, without discharge. Mucous membranes moist. Eyes PERRLA, EOM intact. There is no scleral icterus. No pallor noted. Cardiopulmonary: RRR, no murmurs, rubs or gallops, no JVD noted. Lungs CTAB in anterior and posterior maya. No peripheral edema. Abdominal exam: Abdomen soft and mild amount of ascites noted.. Abdomen mildly tender to palpation in epigastric region. To palpation in all 4 quadrants. Bowel sounds active in LLQ. No hepatosplenomegaly. No ecchymosis Neuro: CN II-XII grossly intact. No nuchal rigidity. No raccon eyes, no magdaleno sign. MSK: Full active ROM in upper and lower extremities, 5/5 stregnth. Limitations: no limitations Course Vital Signs 09/20/19 09/20/19 09/21/19 22:02 23:53 02:00 Temperature 98.4 F 98.2 F Pulse Rate 75 67 69 Respiratory 18 17 19 Rate Blood Pressure 102/73 114/75 118/91 O2 Sat by Pulse 100 100 99 Oximetry Medical Decision Making - Medical Decision Making 43-year-old male patient is alert disease proceeded to complain of epigastric discomfort for the last 2 days. Patient vital signs are stable, afebrile. Physical exam showed mild epigastric tenderness. Laboratory investigations revealed lipase to be mildly elevated. Analgesia was ordered and patient was signed out to and discharged by Dr. Atkins. - Lab Data Result diagrams: 09/20/19 22:25 09/20/19 22:25 Lab Results 09/20/19 09/20/19 09/20/19 Range/Units 22:25 22:25 22:25 WBC 4.4 (3.8-10.6) k/uL RBC 3.97 L (4.30-5.90) m/uL Hgb 12.6 L (13.0-17.5) gm/dL Hct 37.8 L (39.0-53.0) % MCV 95.3 (80.0-100.0) fL MCH 31.8 (25.0-35.0) pg MCHC 33.4 (31.0-37.0) g/dL RDW 17.6 H (11.5-15.5) % Plt Count 59 L (150-450) k/uL Neutrophils % 69 % Lymphocytes % 16 % Monocytes % 11 % Eosinophils % 2 % Basophils % 1 % Neutrophils # 3.0 (1.3-7.7) k/uL Lymphocytes # 0.7 L (1.0-4.8) k/uL Monocytes # 0.5 (0-1.0) k/uL Eosinophils # 0.1 (0-0.7) k/uL Basophils # 0.0 (0-0.2) k/uL Anisocytosis Slight Macrocytosis Slight Sodium 136 L (137-145) mmol/L Potassium 3.9 (3.5-5.1) mmol/L Chloride 104 (98-107) mmol/L Carbon Dioxide 23 (22-30) mmol/L Anion Gap 9 mmol/L BUN 26 H (9-20) mg/dL Creatinine 1.14 (0.66-1.25) mg/dL Est GFR (CKD-EPI)AfAm >90 (>60 ml/min/1.73 sqM) Est GFR (CKD-EPI)NonAf 79 (>60 ml/min/1.73 sqM) Glucose 160 H (74-99) mg/dL Plasma Lactic Acid Reji 1.7 (0.7-2.0) mmol/L Calcium 8.8 (8.4-10.2) mg/dL Total Bilirubin 2.4 H (0.2-1.3) mg/dL AST 26 (17-59) U/L ALT 10 (4-49) U/L Alkaline Phosphatase 58 (38-126) U/L Total Protein 7.1 (6.3-8.2) g/dL Albumin 3.7 (3.5-5.0) g/dL Lipase 592 H (23-300) U/L Urine Color Urine Appearance (Clear) Urine pH (5.0-8.0) Ur Specific [place] (1.001-1.035) Urine Protein (Negative) Urine Glucose (UA) (Negative) Urine Ketones (Negative) Urine Blood (Negative) Urine Nitrite (Negative) Urine Bilirubin (Negative) Urine Urobilinogen (<2.0) mg/dL Ur Leukocyte Esterase (Negative) 07/21/20 Range/Units 22:42 WBC (3.8-10.6) k/uL RBC (4.30-5.90) m/uL Hgb (13.0-17.5) gm/dL Hct (39.0-53.0) % MCV (80.0-100.0) fL MCH (25.0-35.0) pg MCHC (31.0-37.0) g/dL RDW (11.5-15.5) % Plt Count (150-450) k/uL Neutrophils % % Lymphocytes % % Monocytes % % Eosinophils % % Basophils % % Neutrophils # (1.3-7.7) k/uL Lymphocytes # (1.0-4.8) k/uL Monocytes # (0-1.0) k/uL Eosinophils # (0-0.7) k/uL Basophils # (0-0.2) k/uL Anisocytosis Macrocytosis Sodium (137-145) mmol/L Potassium (3.5-5.1) mmol/L Chloride (98-107) mmol/L Carbon Dioxide (22-30) mmol/L Anion Gap mmol/L BUN (9-20) mg/dL Creatinine (0.66-1.25) mg/dL Est GFR (CKD-EPI)AfAm (>60 ml/min/1.73 sqM) Est GFR (CKD-EPI)NonAf (>60 ml/min/1.73 sqM) Glucose (74-99) mg/dL Plasma Lactic Acid Reji (0.7-2.0) mmol/L Calcium (8.4-10.2) mg/dL Total Bilirubin (0.2-1.3) mg/dL AST (17-59) U/L ALT (4-49) U/L Alkaline Phosphatase (38-126) U/L Total Protein (6.3-8.2) g/dL Albumin (3.5-5.0) g/dL Lipase (23-300) U/L Urine Color Light Yellow Urine Appearance Clear (Clear) Urine pH 6.0 (5.0-8.0) Ur Specific [place] 1.007 (1.001-1.035) Urine Protein Negative (Negative) Urine Glucose (UA) Negative (Negative) Urine Ketones Negative (Negative) Urine Blood Negative (Negative) Urine Nitrite Negative (Negative) Urine Bilirubin Negative (Negative) Urine Urobilinogen <2.0 (<2.0) mg/dL Ur Leukocyte Esterase Negative (Negative) Disposition Clinical Impression: Abdominal pain Disposition: HOME SELF-CARE Condition: Stable Instructions (If sedation given, give patient instructions): Abdominal Pain (ED) Additional Instructions: Follow-up with primary care provider tomorrow. Return to ER if condition worsens in any way. Is patient prescribed a controlled substance at d/c from ED?: No Referrals: Pablo Linn MD [Primary Care Provider] - 1-2 days
[2019-09-20 23:55] VITALS: TEMP 98.2
[2019-09-21] MEDS ORDERED: PANTOPRAZOLE 40 MG/10 ML VIAL IVP STA (01:13)
[2019-09-21] MEDS ORDERED: ONDANSETRON 4 MG/2 ML VIAL IVP STA (01:13)
[2019-09-21 02:05] VITALS: BP 118/91; PULSE 69; RESP 19
[2019-09-21] MEDS ORDERED: MORPHINE SULFATE 4 MG/ML SYRINGE IVP STA (02:23)
== END 2019-09-21 02:37 | disposition home or self-care (01) ==
LOC: EC 21:49
DX: R10.13 Epigastric pain (principal); R11.2 Nausea with vomiting, unspecified; G89.29 Other chronic pain; R10.816 Epigastric abdominal tenderness; R74.8 Abnormal levels of other serum enzymes; E07.9 Disorder of thyroid, unspecified; I10 Essential (primary) hypertension; K21.9 Gastro-esophageal reflux disease without esophagitis; F17.200 Nicotine dependence, unspecified, uncomplicated; Z79.899 Other long term (current) drug therapy; Z79.890 Hormone replacement therapy
CPT/HCPCS: 36415; 80053; 83605; 83690; 85025; 81003; 74018; 99284; 96374; 96375 ×2; 96376 ×2; J2270 ×2; J2405; C9113

== ENCOUNTER 2019-09-28 12:15 | Day surgery (SDC) | payer MEDICARE ==
[2019-09-28 13:17] VITALS: BP 124/74; PULSE 78; RESP 18; TEMP 98.1
--- NOTE | 2019-09-28 13:39 | US ---
Discontinued paracentesis HISTORY: Ascites Limited scanning of the abdomen shows minimal ascites. IMPRESSION: Minimal ascites, no paracentesis performed at this time
== END 2019-09-28 13:10 | disposition home or self-care (01) ==
LOC: RADPROMAIN 12:15
PROVIDERS: ATTEND Internal Medicine Gastroenterology
DX: R18.8 Other ascites (principal); D69.6 Thrombocytopenia, unspecified
CPT/HCPCS: 76705

== ENCOUNTER 2019-10-02 17:37 | Inpatient (IN) | payer MEDICARE ==
[2019-10-02] MEDS ORDERED: MORPHINE SULFATE 4 MG/ML SYRINGE IV STA (17:54)
--- NOTE | 2019-10-02 17:57 | ED ---
General Adult HPI - General Chief complaint: Abdominal Pain Stated complaint: abdominal pain Time Seen by Provider: 10/02/19 17:44 Source: patient Mode of arrival: wheelchair Limitations: no limitations - History of Present Illness Initial comments: Dictation was produced using [employer] dictation software. please excuse any grammatical, word or spelling errors. This patient was cared for during a federal and state declared state of emergency secondary to Covid 19 Chief Complaint: 43-year-old male past medical history of chronic abdominal pain, pancreatitis and liver cirrhosis presents with abdominal pain. History of Present Illness: 43-year-old male who presents today with abdominal pain. Patient states he lives with chronic abdominal pain. Patient reports that he has end-stage liver disease. He is currently on transplant list out at [facility]. Patient states over the last 3 days his abdominal pain has been unusually worse. He reports that the pain is diffuse however worse in the right lower quadrant and epigastric area. Patient used to get frequent paracenteses however has not had one in several months. He is on medication regimen to reduce abdominal ascites. Patient denies any fever, chills or night sweats. Patient thinks that this increases pain is from pancreatitis. His history of appendectomy. The ROS documented in this emergency department record has been reviewed and confirmed by me. Those systems with pertinent positive or negative responses have been documented in the HPI. All other systems are other negative and/or noncontributory. PHYSICAL EXAM: General Impression: Alert and oriented x3, not in acute distress HEENT: Normocephalic atraumatic, extra-ocular movements intact, pupils equal and reactive to light bilaterally, mucous membranes moist. Cardiovascular: Heart regular rate and rhythm Chest: Able to complete full sentences, no retractions, no tachypnea Abdomen: abdomen soft, exquisitely tender diffuse abdominal tenderness, nondistended, no fluid wave Musculoskeletal: Pulses present and equal in all extremities, no peripheral edema Motor: no focal deficits noted Neurological: CN II-XII grossly intact, no focal motor or sensory deficits noted Skin: Intact with no visualized rashes Psych: Normal affect and mood ED course: 43-year-old male with multiple or comorbidities presents with abdominal pain. On arrival are within acceptable limits. Patient afebrile. Laboratory evaluation obtained. CBC at baseline. Metabolic panel within acceptable limits for some alcohol is negative. Lipase is 1437. Patient came in with severe abdominal pain. CT abdomen and pelvis was obtained showing no acute processes. Patient given IV fluids and analgesia. Case was discussed with Dr. Herrera who was covering for Dr. Giovani Linn. GI consult. EKG interpretation: Ventricular rate 66, sinus rhythm,. Interval 110, QRS 84, QTC 459. No NV prolongation, no QTC prolongation, no ST or T-wave changes noted. Overall, this EKG is unremarkable - Related Data Home Medications Medication Instructions Recorded Confirmed Rifaximin [Xifaxan] 550 mg PO DAILY 08/02/18 10/02/19 Sucralfate [Carafate] 1 gm PO ACHS PRN 09/22/18 10/02/19 Multivitamins, Thera [Multivitamin 1 tab PO DAILY 10/18/18 09/20/19 (formulary)] Vitamin B Complex 1 cap PO DAILY 10/18/18 10/02/19 Lactulose [Constulose] 20 gm PO TID PRN 03/11/19 10/02/19 Levothyroxine Sodium [Synthroid] 25 mcg PO DAILY 06/27/19 10/02/19 Magnesium 200 mg PO TID 06/27/19 10/02/19 Propranolol HCl [Inderal Xl] 80 mg PO DAILY@1600 06/27/19 10/02/19 Spironolactone 100 mg PO BID@0900,1600 07/04/19 10/02/19 Furosemide [Lasix] 40 mg PO BID@0900,1600 07/11/19 10/02/19 Lipase/Protease/Amylase [Zenpep Dr 10,000 unit PO AC-TID 10/02/19 10/02/19 5,000 Unit Capsule] Metoprolol Tartrate [Lopressor] 25 mg PO TID 10/02/19 10/02/19 Pantoprazole Sodium [Protonix] 40 mg PO DAILY 10/02/19 10/02/19 Thiamine [Vitamin B-1] 100 mg PO AC-BID 10/02/19 10/02/19 Allergies Allergy/AdvReac Type Severity Reaction Status Date / Time No Known Allergies Allergy Verified 10/02/19 17:43 Review of Systems ROS Statement: Those systems with pertinent positive or pertinent negative responses have been documented in the HPI. ROS Other: All systems not noted in ROS Statement are negative. Past Medical History Past Medical History: GERD/Reflux, GI Bleed, Hypertension, Liver Disease, Thyroid Disorder Additional Past Medical History / Comment(s): Liver cirrhosis, portal htn, ETOH abuse, esophageal varicies, upper GI bleed, chronic thrombocytopenia, coagulopathy, pancytopenia, ascities, spinal stenosis: back/leg and feet pain, DDD, chronic back pain, neuropathy bilateral legs/feet, falls, bronchitis, 2010 [place], chronic pancreatitis History of Any Multi-Drug Resistant Organisms: None Reported Past Surgical History: Appendectomy, Joint Replacement Additional Past Surgical History / Comment(s): EGDs, paracentesis, back injections, R thumb reattachment, circumcism. Past Anesthesia/Blood Transfusion Reactions: No Reported Reaction Additional Past Anesthesia/Blood Transfusion Reaction / Comment(s): Pt has received blood without reaction. Past Psychological History: No Psychological Hx Reported, Depression Smoking Status: Current every day smoker Past Alcohol Use History: None Reported Past Drug Use History: Marijuana - Past Family History Father Family Medical History: Unable to Obtain Additional Family Medical History / Comment(s): Pt does not know his father's medical hx. Mother Family Medical History: No Reported History Additional Family Medical History / Comment(s): Mother is healthy. Brother(s) Additional Family Medical History / Comment(s): Patient has 3 brothers and one suffers from alcohol abuse. 2 brothers have no major medical problems. Patient does not have any sisters. Patient is one daughter 12 years old with no major medical problems. General Exam Limitations: no limitations Course Vital Signs 10/02/19 10/02/19 10/02/19 17:41 18:30 19:00 Temperature 98.5 F Pulse Rate 83 66 71 Respiratory 18 18 18 Rate Blood Pressure 110/74 123/80 109/81 O2 Sat by Pulse 98 98 98 Oximetry Medical Decision Making - Lab Data Result diagrams: 10/02/19 18:07 10/02/19 18:07 Lab Results 10/02/19 10/02/19 10/02/19 Range/Units 18:07 18:07 18:07 WBC 3.0 L (3.8-10.6) k/uL RBC 3.53 L (4.30-5.90) m/uL Hgb 10.7 L (13.0-17.5) gm/dL Hct 32.9 L (39.0-53.0) % MCV 93.2 (80.0-100.0) fL MCH 30.2 (25.0-35.0) pg MCHC 32.4 (31.0-37.0) g/dL RDW 17.2 H (11.5-15.5) % Plt Count 35 L (150-450) k/uL Neutrophils % 71 % Lymphocytes % 14 % Monocytes % 11 % Eosinophils % 2 % Basophils % 0 % Neutrophils # 2.1 (1.3-7.7) k/uL Lymphocytes # 0.4 L (1.0-4.8) k/uL Monocytes # 0.3 (0-1.0) k/uL Eosinophils # 0.0 (0-0.7) k/uL Basophils # 0.0 (0-0.2) k/uL Anisocytosis Slight Sodium 134 L (137-145) mmol/L Potassium 4.4 (3.5-5.1) mmol/L Chloride 108 H (98-107) mmol/L Carbon Dioxide 19 L (22-30) mmol/L Anion Gap 7 mmol/L BUN 38 H (9-20) mg/dL Creatinine 1.12 (0.66-1.25) mg/dL Est GFR (CKD-EPI)AfAm >90 (>60 ml/min/1.73 sqM) Est GFR (CKD-EPI)NonAf 80 (>60 ml/min/1.73 sqM) Glucose 180 H (74-99) mg/dL Calcium 9.0 (8.4-10.2) mg/dL Total Bilirubin 1.8 H (0.2-1.3) mg/dL AST 27 (17-59) U/L ALT 13 (4-49) U/L Alkaline Phosphatase 48 (38-126) U/L Ammonia 84 H (<30) umol/L Total Protein 6.9 (6.3-8.2) g/dL Albumin 3.5 (3.5-5.0) g/dL Lipase 1437 H (23-300) U/L Serum Alcohol <10 mg/dL Disposition Clinical Impression: Pancreatitis Disposition: ADMITTED IP TO THIS HOSP Condition: Fair Referrals: Pablo Linn MD [Primary Care Provider] - 1-2 days Decision Time: 19:22
[2019-10-02 18:25] LABS: Anisocytosis Slight; Basophils % (A) 0 %; Eosinophils % (A) 2 %; HCT 32.9 % (39.0-53.0); HGB 10.7 gm/dL (13.0-17.5); Lymphocytes # (A) 0.4 k/uL (1.0-4.8); Lymphocytes % (A) 14 %; MCH 30.2 pg (25.0-35.0); MCHC 32.4 g/dL (31.0-37.0); MCV 93.2 fL (80.0-100.0); Mean Platelet Volume 9.4; Monocytes # (A) 0.3 k/uL (0-1.0); Monocytes % (A) 11 %; Neutrophils # (A) 2.1 k/uL (1.3-7.7); Neutrophils % (A) 71 %; RBC 3.53 m/uL (4.30-5.90); RDW 17.2 % (11.5-15.5)
[2019-10-02 18:28] LABS: Platelet Count 35 k/uL (150-450)
[2019-10-02 18:36] LABS: ALT 13 U/L (4-49); AST 27 U/L (17-59); African American GFR (CKD) >90 (>60 ml/min/1.73 sqM); Albumin 3.5 g/dL (3.5-5.0); Alcohol <10 mg/dL; Alkaline Phosphatase 48 U/L (38-126); Anion Gap 7 mmol/L; Blood Urea Nitrogen 38 mg/dL (9-20); Carbon Dioxide 19 mmol/L (22-30); Chloride 108 mmol/L (98-107); Glucose 180 mg/dL (74-99); Non-African American GFR(CKD) 80 (>60 ml/min/1.73 sqM); Potassium 4.4 mmol/L (3.5-5.1); Sodium 134 mmol/L (137-145); Total Bilirubin 1.8 mg/dL (0.2-1.3); Total Protein 6.9 g/dL (6.3-8.2)
--- NOTE | 2019-10-02 19:05 | CT ---
EXAMINATION TYPE: CT abdomen pelvis w con DATE OF EXAM: 10/02/2019 COMPARISON: 08/02/2018 HISTORY: abdominal pain CT DLP: 657.9 mGycm Automated exposure control for dose reduction was used. CONTRAST: Performed with IV Contrast, patient injected with 100 mL of Isovue 300. Lung bases are clear. There is no pleural effusion. Heart size is normal. There is no pericardial eff usion. Liver is somewhat irregular consistent with cirrhosis. There is splenomegaly and spleen measur es 18 cm. Stomach is intact. There is mild abdominal ascites. There are numerous punctate calcificati ons in the pancreas. There is no evidence of pancreatic mass. There is no adrenal mass. Kidneys show satisfactory contrast opacification. There is no hydronephrosi s. There is no retroperitoneal adenopathy. Bladder distends smoothly. There are multiple diverticula of the sigmoid colon. I see no sign of diverticulitis. Lumbar vertebra have normal alignment. There i s narrowing of L4-5 disc space with spurring. There is L5 spondylolysis. There is no significant spon dylolisthesis. There are some prominent vessels in the epigastrium consistent with varices. There is normal contrast opacification of the portal venous system. IMPRESSION: There is evidence of hepatic cirrhosis. Splenomegaly. Abdominal ascites. 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 Ascites is new compared to old exam. Varices are increased compared to old exam. Extensive pancreatic calcification consistent with chronic pancreatitis. Unchanged. L5 spondylolysis unchanged.
[2019-10-02] MEDS ORDERED: HYDROmorphone 1 MG/ML 1 ML SYRINGE IVP STA (19:11)
[2019-10-02] MEDS ORDERED: ACETAMINOPHEN TAB 325 MG TAB PO PRN (19:19)
[2019-10-02] MEDS ORDERED: ONDANSETRON 4 MG/2 ML VIAL IVP PRN (19:19)
[2019-10-02] MEDS ORDERED: HYDROmorphone 2 MG TAB PO PRN (19:19)
[2019-10-02] MEDS ORDERED: NALOXONE 0.4 MG/ML 1 ML VIAL IV PRN (19:19)
[2019-10-02] MEDS ORDERED: SODIUM CHLORIDE 0.9% 500 ML 500 ML IV STA (19:22)
[2019-10-02] MEDS: SODIUM CHLORIDE 0.9% 1,000 ML IV SCH (19:33)
[2019-10-02] MEDS ORDERED: LACTULOSE 200 GM/300 ML (FROM 1/2 GAL JUG) PO PRN (20:52)
[2019-10-02] MEDS ORDERED: SUCRALFATE 1 GM TAB PO PRN (20:52)
[2019-10-02] MEDS ORDERED: LACTULOSE 20 GM/30 ML CUP PO PRN (21:02)
[2019-10-02] MEDS: MAGNESIUM OXIDE 400 MG TAB PO SCH (22:48)
[2019-10-02] MEDS: METOPROLOL TARTRATE 25 MG TAB PO SCH (22:49)
[2019-10-03] MEDS: HYDROmorphone 1 MG/ML 1 ML SYRINGE IVP PRN ×3 (00:24→08:12)
[2019-10-03] MEDS ORDERED: LEVOTHYROXINE 25 MCG TAB PO SCH (06:30)
[2019-10-03 07:50] LABS: Anisocytosis Slight; Basophils % (A) 1 %; Eosinophils # (A) 0.1 k/uL (0-0.7); Eosinophils % (A) 4 %; HCT 33.3 % (39.0-53.0); HGB 10.9 gm/dL (13.0-17.5); Lymphocytes # (A) 0.5 k/uL (1.0-4.8); Lymphocytes % (A) 25 %; MCH 30.9 pg (25.0-35.0); MCHC 32.8 g/dL (31.0-37.0); MCV 94.3 fL (80.0-100.0); Mean Platelet Volume 9.7; Monocytes # (A) 0.2 k/uL (0-1.0); Monocytes % (A) 10 %; Neutrophils # (A) 1.2 k/uL (1.3-7.7); Neutrophils % (A) 59 %; RBC 3.53 m/uL (4.30-5.90)
[2019-10-03 07:53] LABS: Platelet Count 33 k/uL (150-450)
[2019-10-03 08:04] LABS: ALT 13 U/L (4-49); AST 28 U/L (17-59); African American GFR (CKD) >90 (>60 ml/min/1.73 sqM); Albumin 3.2 g/dL (3.5-5.0); Alkaline Phosphatase 49 U/L (38-126); Anion Gap 3 mmol/L; Blood Urea Nitrogen 30 mg/dL (9-20); Calcium 8.5 mg/dL (8.4-10.2); Carbon Dioxide 22 mmol/L (22-30); Chloride 112 mmol/L (98-107); Glucose 108 mg/dL (74-99); Non-African American GFR(CKD) >90 (>60 ml/min/1.73 sqM); Potassium 3.9 mmol/L (3.5-5.1); Sodium 137 mmol/L (137-145); Total Bilirubin 2.3 mg/dL (0.2-1.3); Total Protein 6.4 g/dL (6.3-8.2)
[2019-10-03] MEDS: LIPASE 5,000/PROTEASE 17,000/AMYLASE 24,000 PO SCH ×3 (08:12→16:51)
[2019-10-03] MEDS: THIAMINE 100 MG TAB PO SCH ×2 (08:12→16:53)
[2019-10-03] MEDS: SODIUM CHLORIDE 0.9% 1,000 ML IV SCH (08:13)
[2019-10-03] MEDS ORDERED: PANTOPRAZOLE 40 MG/10 ML VIAL IV SCH (09:00)
[2019-10-03] MEDS ORDERED: RIFAXIMIN 550 MG TABLET PO SCH (09:00)
[2019-10-03] MEDS ORDERED: NON FORMULARY DRUG (Vitamin B Complex [Vitamin B Complex] 1 CAP) PO SCH (09:00)
[2019-10-03] MEDS ORDERED: MULTIVITAMINS, THERA 1 EACH TAB PO SCH (09:00)
[2019-10-03] MEDS: METOPROLOL TARTRATE 25 MG TAB PO SCH ×2 (10:15→15:20)
[2019-10-03] MEDS: MAGNESIUM OXIDE 400 MG TAB PO SCH ×2 (10:17→15:20)
[2019-10-03] MEDS: FUROSEMIDE 40 MG TAB PO SCH ×2 (10:20→15:20)
[2019-10-03] MEDS: SPIRONOLACTONE 25 MG TAB PO SCH ×2 (10:20→15:20)
[2019-10-03 11:35] VITALS: BMI 18.1
[2019-10-03] MEDS: HYDROmorphone 2 MG/ML 1 ML SYRINGE IVP PRN ×4 (11:59→21:20)
--- NOTE | 2019-10-03 15:27 | P.HPIM ---
History of Present Illness H&P Date: 10/03/19 Chief Complaint: abdominal pain This is a 43-year-old male patient of Dr. Sarmad Linn. He has history of alcohol liver cirrhosis with portal hypertension and previous GI bleeding, hypertension and gastritis, pancreatitis, spinal stenosis and peripheral neuropathy. Patient also has chronic back pain and was under the care of Dr. Lagunas but violated pain contract and no longer seen by pain management. He is also known to Dr. Ghazal Leiva from previous EGDs in the past finding gastritis consistent with portal gastropathy but no gastric or esophageal varices or active bleeding. He has had multipe admissions for acute GI bleed. He had admission for right leg abscess requiring I&D in December 2017. Patient has had multiple admissions for acute pancreatitis with worsening ascites. Most recently, hospitalizations have been for ascites and therapeutic paracentesis. His last paracentesis was on August 16 as an outpatient which time he had 3.4 L of serous fluid removed. He has had follow-up ultrasounds with only minimal ascites. Patient states he has had a rough couple of days. He denies any alcohol intake. He states his abdomen hurts all the time but has been worsening pain. It is worse in the right upper quadrant epigastric area but is throughout the abdomen. No significant ascites at this time. Patient states that he has been doing visual visits with [facility] and has appointment tomorrow for evaluation by transplant team for liver transplant. He is anxious to be discharged home so that he can attend this appointment. Patient came into [facility] emergency center for evaluation. Hemoglobin 10.7, WBC 3.0 and platelet count 35. Sodium 134, potassium 4.4, chloride 108, CO2 19, BUN 38 creatinine 1.12. Ammonia level LXXXIV. Glucose 180. Lipase 1437. Alcohol level less than 10. CAT scan of the abdomen and pelvis reveals hepatic cirrhosis, splenomegaly, abdominal ascites. Evidence of portal venous hypertension with varices in the anterior upper abdomen. There sees her increased compared to old exam. Extensive pancreatic calcification consistent with chronic pancreatitis unchanged. L5 spondylolysis. Patient admitted to the [facility] floor and consults with GI consult. Patient started on IV fluids and nothing by mouth status. Review of Systems Constitutional: Denies chills, Denies fatigue, Denies fever, Denies lethargy, Denies malaise, reports poor appetite, Denies weakness Eyes: denies blurred vision, denies pain Ears, nose, mouth and throat: Denies headache, Denies sore throat Cardiovascular: Denies chest pain, Denies decreased exercise tolerance, Denies dyspnea on exertion, Denies lightheadedness, Denies shortness of breath, Denies syncope Respiratory: Denies cough, Denies cough with sputum, Denies dyspnea, Denies hemoptysis, Denies home oxygen, Denies respiratory infections, Denies wheezing Gastrointestinal: Reports abdominal pain, Denies BRBPR, Denies diarrhea, Denies melena, reports nausea, reports vomiting Genitourinary: Denies dysuria, Denies urinary hesitancy, Denies urinary retention Musculoskeletal: Denies frequent falls, Denies gait dysfunction, Denies muscle weakness, Denies myalgias Integumentary: Denies pruritus, Denies rash, Denies wounds Neurological: Denies numbness, Denies weakness Psychiatric: Denies anxiety, Denies depression Endocrine: Denies fatigue, Denies weight change Physical Examination Gen: This is a thin 43-year-old male. Patient is resting in bed and appears to be comfortable and in no acute distress. HEENT: Head is atraumatic, normocephalic. Pupils equal, round. Sclerae is anicteric. NECK: Supple. No JVD. No lymphadenopathy. No thyromegaly. LUNGS: Clear to auscultation. No wheezes or rhonchi. No intercostal retractions. HEART: Regular rate and rhythm. No murmur. ABDOMEN: Soft. Bowel sounds are present. No masses. Epigastric and bilateral upper quadrant tenderness. EXTREMITIES: No pedal edema. No calf tenderness. NEUROLOGICAL: Patient is awake, alert and oriented x3. Cranial nerves 2 through 12 are grossly intact. Assessment and Plan 1. Abdominal pain, acute on chronic secondary to acute pancreatitis. Consult with GI appreciated. Continue Zofran as needed for nausea. Diet has been advanced to clear liquids. 2. History of alcoholic liver disease with portal hypertension and previous episodes of acute GI bleed with acute blood loss anemia resulting in multiple hospitalizations for GI bleeding from esophageal varices status post banding. Continue Protonix 40 mg daily and Carafate. Continue Inderal LA 80 mg daily, lactulose 20 mg 3 times daily as needed, Zenpep 3 times daily, Lasix 40 mg twice daily. 3. Frequent hospitalizations for ascites and paracentesis, stable. We will hold Lasix for today. Continue Aldactone 100 mg twice daily. 4. Chronic pancytopenia with severe thrombocytopenia secondary to chronic EtOH related bone marrow damage and portal hypertension causing splenic sequestration. 5. Spinal stenosis with peripheral neuropathy. Patient has considerable complaints for pain control and need for pain management physician. It is our understanding patient has been established with Dr. Bedoya in the past. Patient states he is also seeing Dr. Bruce in the past and he wanted to do injections which the patient refused. 6. Tobacco use and dependence. 7. Hypothyroidism. Continue levothyroxine 25 g daily. 8. Recurrent depression. 9. Peripheral neuropathy secondary to alcoholism and spinal stenosis. 10. Hypertension. Continue Lopressor 25 mg 3 times daily. 11. Gastroesophageal reflux disease and GI prophylaxis. Continue Protonix and Carafate. 11. DVT prophylaxis. No heparin due to thrombocytopenia. SCDs and ANDREEA hose and early ambulation. 12. COVID-19 test. Patient admitted to the hospital for a minimum of 2 night stay. Discharge plan: Home on Thursday. Impression and plan of care have been directed as dictated by the signing physician. Giovana Kathleen nurse practitioner acting as scribe for signing phys ician. Past Medical History Past Medical History: GERD/Reflux, GI Bleed, Hypertension, Liver Disease, Thyroid Disorder Additional Past Medical History / Comment(s): Liver cirrhosis stage 4 portal htn, ETOH abuse, esophageal varicies, upper GI bleed, chronic thrombocytopenia, coagulopathy, pancytopenia, ascities, spinal stenosis: back/leg and feet pain, DDD, chronic back pain, neuropathy bilateral legs/feet, falls, bronchitis, 2010 [place], chronic pancreatitis History of Any Multi-Drug Resistant Organisms: None Reported Past Surgical History: Appendectomy, Joint Replacement Additional Past Surgical History / Comment(s): EGDs, paracentesis about a month and a half ago, back injections, R thumb reattachment, circumcism. Past Anesthesia/Blood Transfusion Reactions: No Reported Reaction Additional Past Anesthesia/Blood Transfusion Reaction / Comment(s): Pt has received blood without reaction. Past Psychological History: No Psychological Hx Reported, Depression Additional Psychological History / Comment(s): Pt is on disability. He resides with his mother. He uses a cane to ambulate at times. He drives. Smoking Status: Current some day smoker, Former smoker Past Alcohol Use History: None Reported Additional Past Alcohol Use History / Comment(s): Patient is a smoker of a pack per day for 27 years currently down to a few puffs some days. He denies any marijuana or street drug use. He does have history of heavy alcohol use with drinking up to a pint per day for 7 years but then cut down to only drinking an occasional beer and states he has not drank any alcohol now in months. Past Drug Use History: None Reported - Past Family History Father Family Medical History: Unable to Obtain Additional Family Medical History / Comment(s): Pt does not know his father's medical hx. Mother Family Medical History: No Reported History Additional Family Medical History / Comment(s): Mother is healthy. Brother(s) Additional Family Medical History / Comment(s): Patient has 3 brothers and one suffers from alcohol abuse. 2 brothers have no major medical problems. Patient does not have any sisters. Patient is one daughter 12 years old with no major medical problems. Medications and Allergies Home Medications Medication Instructions Recorded Confirmed Type Rifaximin [Xifaxan] 550 mg PO DAILY 08/02/18 10/02/19 History Sucralfate [Carafate] 1 gm PO ACHS PRN 09/22/18 10/02/19 History Multivitamins, Thera [Multivitamin 1 tab PO DAILY 10/18/18 10/02/19 History (formulary)] Vitamin B Complex 1 cap PO DAILY 10/18/18 10/02/19 History Lactulose [Constulose] 20 gm PO TID PRN 03/11/19 10/02/19 History Levothyroxine Sodium [Synthroid] 25 mcg PO DAILY 06/27/19 10/02/19 History Magnesium 200 mg PO TID 06/27/19 10/02/19 History Propranolol HCl [Inderal Xl] 80 mg PO DAILY@159906/27/19 10/02/19 History Spironolactone 100 mg PO BID@0900,1600 07/04/19 10/02/19 History Furosemide [Lasix] 40 mg PO BID@0900,1600 07/11/19 10/02/19 History Lipase/Protease/Amylase [Zenpep Dr 10,000 unit PO AC-TID 10/02/19 10/02/19 History 5,000 Unit Capsule] Metoprolol Tartrate [Lopressor] 25 mg PO TID 10/02/19 10/02/19 History Pantoprazole Sodium [Protonix] 40 mg PO DAILY 10/02/19 10/02/19 History Thiamine [Vitamin B-1] 100 mg PO AC-BID 10/02/19 10/02/19 History Allergies Allergy/AdvReac Type Severity Reaction Status Date / Time No Known Allergies Allergy Verified 10/02/19 19:25 Physical Exam Vitals: Vital Signs Temp Pulse Pulse Resp BP BP Pulse Ox 10/03/19 05:33 97.8 F 60 16 114/77 97 10/02/19 21:45 97.9 F 67 16 128/85 98 10/02/19 19:49 72 16 121/87 98 10/02/19 19:00 71 18 109/81 98 10/02/19 18:30 66 18 123/80 98 10/02/19 17:41 98.5 F 83 18 110/74 98 Intake and Output 10/02/19 10/03/19 10/03/19 22:59 06:59 14:59 Intake Total 590 Output Total 300 Balance 290 Intake: Oral 590 Output: Urine 300 Other: Voiding Method Urinal # Voids 1 Weight 55.792 kg Results CBC & Chem 7: 10/03/19 07:33 10/03/19 07:33 Labs: Abnormal Lab Results - Last 24 Hours (Table) 10/02/19 10/02/19 10/02/19 Range/Units 18:07 18:07 18:07 WBC 3.0 L (3.8-10.6) k/uL RBC 3.53 L (4.30-5.90) m/uL Hgb 10.7 L (13.0-17.5) gm/dL Hct 32.9 L (39.0-53.0) % RDW 17.2 H (11.5-15.5) % Plt Count 35 L (150-450) k/uL Neutrophils # (1.3-7.7) k/uL Lymphocytes # 0.4 L (1.0-4.8) k/uL Sodium 134 L (137-145) mmol/L Chloride 108 H (98-107) mmol/L Carbon Dioxide 19 L (22-30) mmol/L BUN 38 H (9-20) mg/dL Glucose 180 H (74-99) mg/dL Total Bilirubin 1.8 H (0.2-1.3) mg/dL Ammonia 84 H (<30) umol/L Albumin (3.5-5.0) g/dL Lipase 1437 H (23-300) U/L 10/03/19 10/03/19 Range/Units 07:33 07:33 WBC 2.0 L (3.8-10.6) k/uL RBC 3.53 L (4.30-5.90) m/uL Hgb 10.9 L (13.0-17.5) gm/dL Hct 33.3 L (39.0-53.0) % RDW 17.0 H (11.5-15.5) % Plt Count 33 L (150-450) k/uL Neutrophils # 1.2 L (1.3-7.7) k/uL Lymphocytes # 0.5 L (1.0-4.8) k/uL Sodium (137-145) mmol/L Chloride 112 H (98-107) mmol/L Carbon Dioxide (22-30) mmol/L BUN 30 H (9-20) mg/dL Glucose 108 H (74-99) mg/dL Total Bilirubin 2.3 H (0.2-1.3) mg/dL Ammonia (<30) umol/L Albumin 3.2 L (3.5-5.0) g/dL Lipase 691 H (23-300) U/L Thrombosis Risk Factor Assmnt - DVT/VTE Prophylaxis DVT/VTE Prophylaxis: Mechanical Prophylaxis ordered - Choose All That Apply Any of the Below Risk Factors Present?: Yes Each Factor Represents 1 point: Age 41-60 years Other Risk Factors: No Other congenital or acquired thrombophilia - If yes, enter type in comment: No Thrombosis Risk Factor Assessment Total Risk Factor Score: 1 Thrombosis Risk Factor Assessment Level: Low Risk
[2019-10-03] MEDS ORDERED: PROPRANOLOL LA 80 MG CAP.SA.24H PO SCH (16:00)
[2019-10-03 21:02] VITALS: BP 137/81; PULSE 70; RESP 16; TEMP 97.6
--- NOTE | 2019-10-03 23:44 | CONS ---
CONSULTATION DATE OF DICTATION: 10/03/2019 REASON FOR CONSULTATION: Chronic relapsing pancreatitis. HISTORY OF PRESENT ILLNESS: The patient is a 43-year-old pleasant white male with history of alcoholic cirrhosis of the liver as well as alcoholic chronic pancreatitis, admitted to the hospital because of abdominal pain. Pain has been going on for the last 2 weeks duration which is progressively getting worse. He was seeing Dr. Lagunas for pain management, but apparently he no longer sees him. At the time of admission to the hospital, lipase was elevated at 4500 and today it is down to 900. He is feeling somewhat better. History of alcoholic cirrhosis of the liver with GI bleed, multiple EGDs in the past, history of refractory ascites requiring paracentesis every 2 weeks. He is scheduled to be seen at [facility] for evaluation of liver transplantation this Thursday. PAST MEDICAL HISTORY: Past medical history is significant for alcoholic liver disease, alcoholic related pancreatitis, history of heavy alcohol abuse in the past, quit drinking 3 months ago. MEDICATIONS: Medications at home include thiamine, Carafate, multivitamin, lactulose, Lasix, Synthroid, Zenpep, magnesium, Lopressor, multivitamin, Protonix, Inderal, Carafate, vitamin B1, Xifaxan. ALLERGIES: None. SOCIAL HISTORY: Chronic smoker. History of alcohol use in the past, quit drinking. REVIEW OF SYSTEMS: CARDIOPULMONARY: No chest pain or shortness of breath. GENITOURINARY: No dysuria or hematuria. MUSCULOSKELETAL: Chronic back pain of several years duration and diffuse pains in the body. NEUROLOGY: Unremarkable. PSYCHIATRIC: Unremarkable. ENT/VISION: Unremarkable. CONSTITUTIONAL: Weight loss of 20 pounds. No fever, chills, night sweats. HEMATOLOGY: Chronic anemia. PHYSICAL EXAMINATION: He appears comfortable. Vital signs are stable. Blood pressure 132/94, pulse is 65, temperature 98.3. HEENT EXAMINATION: Unremarkable. Conjunctivae pink. Sclerae anicteric. Oral cavity no lesions. NECK: No JVD or lymph node enlargement. CHEST: Clear to auscultation. HEART: Regular rate and rhythm. ABDOMEN: Slightly distended. There was severe tenderness in the epigastric area and in the right upper quadrant area. EXTREMITIES: No pedal edema. SKIN: No rashes. NEUROLOGIC: Alert and oriented x3. No focal deficits. LABS: WBC 3, hemoglobin 10.7, platelets 35,000. Basic metabolic panel is within normal limits. BUN 38, creatinine 1.12. Lipase 1437 and today it is 691. Alcohol level less than 10. CT of the abdomen and pelvis done yesterday showed cirrhosis of the liver and splenomegaly and mild abdominal ascites. Extensive pancreatic calcifications consistent with chronic pancreatitis. IMPRESSION: 1. Chronic relapsing pancreatitis with a flare up currently, presently does not have elevated lipase, on pain medications, doing better. 2. Alcoholic cirrhosis of the liver with gradual decompensation. The patient being seen at [facility] this Thursday. 3. Refractory ascites requiring large volume paracentesis on a frequent basis. RECOMMENDATIONS: 1. Continue with symptomatic and supportive care. 2. Pain medications as needed. 3. Patient needs pain management on an outpatient basis. 4. Continue Protonix 40 mg daily. 5. Repeat labs in the morning. 6. Continue with a clear liquid diet. 7. If his labs are improved, he can be discharged home tomorrow with outpatient followup in 2 weeks. Thank you for this consultation. KEYLA / RACHEL: [id number] /
[2019-10-04] MEDS: HYDROmorphone 2 MG/ML 1 ML SYRINGE IVP PRN ×2 (00:09→03:28)
[2019-10-04] MEDS: SODIUM CHLORIDE 0.9% 1,000 ML IV SCH (00:09)
[2019-10-04] MEDS: MAGNESIUM OXIDE 400 MG TAB PO SCH (00:11)
[2019-10-04] MEDS: METOPROLOL TARTRATE 25 MG TAB PO SCH (00:23)
== END 2019-10-04 06:04 | disposition left against medical advice (07) | DRG 439 ==
LOC: EC 17:37 → 5NMEDONC 19:19
PROVIDERS: ADMIT Internal Medicine; ATTEND Internal Medicine
DX: K85.90 Acute pancreatitis without necrosis or infection, unspecified (principal); K76.6 Portal hypertension; F33.9 Major depressive disorder, recurrent, unspecified; D61.818 Other pancytopenia; K70.31 Alcoholic cirrhosis of liver with ascites; E03.9 Hypothyroidism, unspecified; K72.90 Hepatic failure, unspecified without coma; F17.200 Nicotine dependence, unspecified, uncomplicated; K21.9 Gastro-esophageal reflux disease without esophagitis; Z11.59 Encounter for screening for other viral diseases; D69.59 Other secondary thrombocytopenia; G89.29 Other chronic pain; M19.90 Unspecified osteoarthritis, unspecified site; G62.9 Polyneuropathy, unspecified; I10 Essential (primary) hypertension; M43.06 Spondylolysis, lumbar region; M48.00 Spinal stenosis, site unspecified; K29.70 Gastritis, unspecified, without bleeding; Z79.890 Hormone replacement therapy; Z79.899 Other long term (current) drug therapy; Z90.49 Acquired absence of other specified parts of digestive tract; Z98.890 Other specified postprocedural states; Z81.1 Family history of alcohol abuse and dependence; Z76.82 Awaiting organ transplant status
CPT/HCPCS: 36415; 74177; 80053; 80320; 82140; 83690; 85025; 93005; 96374; 96375; 99285

== ENCOUNTER 2019-10-08 23:53 | Emergency (ER) | payer MEDICARE ==
[2019-10-09] VITALS: RESP 18
[2019-10-09 00:25] LABS: Anisocytosis Slight; Basophils % (A) 1 %; Eosinophils # (A) 0.1 k/uL (0-0.7); Eosinophils % (A) 2 %; HCT 36.1 % (39.0-53.0); HGB 11.8 gm/dL (13.0-17.5); Lymphocytes # (A) 0.5 k/uL (1.0-4.8); Lymphocytes % (A) 11 %; MCH 30.8 pg (25.0-35.0); MCHC 32.6 g/dL (31.0-37.0); MCV 94.4 fL (80.0-100.0); Monocytes # (A) 0.4 k/uL (0-1.0); Monocytes % (A) 9 %; Neutrophils % (A) 76 %; RBC 3.83 m/uL (4.30-5.90); RDW 17.7 % (11.5-15.5)
[2019-10-09 00:26] LABS: Platelet Count 49 k/uL (150-450)
[2019-10-09 00:29] LABS: ALT 13 U/L (4-49); AST 32 U/L (17-59); African American GFR (CKD) >90 (>60 ml/min/1.73 sqM); Albumin 3.7 g/dL (3.5-5.0); Alcohol <10 mg/dL; Alkaline Phosphatase 51 U/L (38-126); Amylase 121 U/L (30-110); Anion Gap 8 mmol/L; Blood Urea Nitrogen 26 mg/dL (9-20); Calcium 8.9 mg/dL (8.4-10.2); Carbon Dioxide 20 mmol/L (22-30); Chloride 108 mmol/L (98-107); Glucose 168 mg/dL (74-99); Lipase 620 U/L (23-300); Non-African American GFR(CKD) >90 (>60 ml/min/1.73 sqM); Potassium 4.3 mmol/L (3.5-5.1); Sodium 136 mmol/L (137-145); Total Bilirubin 2.1 mg/dL (0.2-1.3); Total Protein 7.1 g/dL (6.3-8.2)
[2019-10-09 00:52] LABS: Appearance,Urine Clear (Clear); Bilirubin,Urine Negative (Negative); Blood,Urine Negative (Negative); Color,Urine Yellow; Glucose,Urine (UA) Negative (Negative); Ketones,Urine Negative (Negative); Leukocyte Esterase,Urine Negative (Negative); Nitrite,Urine Negative (Negative); Protein,Urine Trace (Negative); Specific Gravity,Urine 1.026 (1.001-1.035)
[2019-10-09 01:22] VITALS: BP 123/89; PULSE 73; TEMP 99.3
[2019-10-09] MEDS ORDERED: MORPHINE SULFATE 4 MG/ML SYRINGE IV STA (01:35)
--- NOTE | 2019-10-09 02:12 | ED ---
Abdominal Pain HPI - General Chief Complaint: Abdominal Pain Stated Complaint: Abdominal Pain Time Seen by Provider: 10/09/19 00:04 Source: patient Mode of arrival: ambulatory Limitations: no limitations - History of Present Illness Initial Comments: This patient is 43-year-old man reportedly with end-stage liver disease and chronic pancreatitis, who presents to be evaluate for upper abdominal pain. He states that it reminds him very much of his previous record tightness pain. Patient states that he has not been drinking. Patient has nausea has not had any hematemesis or coffee-ground material. No change in bowel movements or urination. MD Complaint: abdominal pain -: days(s) Location: LUQ, RUQ, epigastric Radiation: none Severity: severe Quality: aching Consistency: constant Improves With: nothing Worsens With: nothing Associated Symptoms: nausea - Related Data Home Medications Medication Instructions Recorded Confirmed Rifaximin [Xifaxan] 550 mg PO DAILY 08/02/18 10/14/19 Sucralfate [Carafate] 1 gm PO ACHS PRN 09/22/18 10/14/19 Multivitamins, Thera [Multivitamin 1 tab PO DAILY 10/18/18 10/14/19 (formulary)] Vitamin B Complex 1 cap PO DAILY 10/18/18 10/14/19 Lactulose [Constulose] 20 gm PO TID PRN 03/11/19 10/14/19 Levothyroxine Sodium [Synthroid] 25 mcg PO DAILY 06/27/19 10/14/19 Magnesium 200 mg PO TID 06/27/19 10/14/19 Propranolol HCl [Inderal Xl] 80 mg PO DAILY 06/27/19 10/14/19 Spironolactone 100 mg PO BID@0900,1600 07/04/19 10/14/19 Furosemide [Lasix] 40 mg PO BID@0900,1600 07/11/19 10/14/19 Lipase/Protease/Amylase [Zenpep Dr 10,000 unit PO AC-TID 10/02/19 10/14/19 5,000 Unit Capsule] Thiamine [Vitamin B-1] 100 mg PO AC-BID 10/02/19 10/14/19 Midodrine HCl [ProAmatine] 10 mg PO TID 10/12/19 10/14/19 Pantoprazole Sodium [Protonix] 20 mg PO BID 10/12/19 10/14/19 Allergies Allergy/AdvReac Type Severity Reaction Status Date / Time No Known Allergies Allergy Verified 10/14/19 17:39 Review of Systems ROS Statement: Those systems with pertinent positive or pertinent negative responses have been documented in the HPI. ROS Other: All systems not noted in ROS Statement are negative. Constitutional: Denies: fever, chills Respiratory: Denies: cough, dyspnea Cardiovascular: Denies: chest pain, palpitations Gastrointestinal: Reports: abdominal pain, nausea. Denies: vomiting, diarrhea, constipation, hematemesis, melena, hematochezia Genitourinary: Denies: dysuria, hematuria Musculoskeletal: Denies: back pain Skin: Denies: rash Neurological: Denies: headache, weakness, numbness Past Medical History Past Medical History: GERD/Reflux, GI Bleed, Hypertension, Liver Disease, Thyroid Disorder Additional Past Medical History / Comment(s): Liver cirrhosis stage 4 portal htn, ETOH abuse, esophageal varicies, upper GI bleed, chronic thrombocytopenia, coagulopathy, pancytopenia, ascities, spinal stenosis: back/leg and feet pain, DDD, chronic back pain, neuropathy bilateral legs/feet, falls, bronchitis, 2010 Gu[place], chronic pancreatitis History of Any Multi-Drug Resistant Organisms: None Reported Past Surgical History: Appendectomy, Joint Replacement Additional Past Surgical History / Comment(s): EGDs, paracentesis about a month and a half ago, back injections, R thumb reattachment, circumcism. Past Anesthesia/Blood Transfusion Reactions: No Reported Reaction Additional Past Anesthesia/Blood Transfusion Reaction / Comment(s): Pt has received blood without reaction. Past Psychological History: Depression Smoking Status: Current every day smoker Past Alcohol Use History: None Reported Past Drug Use History: None Reported - Past Family History Father Family Medical History: Unable to Obtain Additional Family Medical History / Comment(s): Pt does not know his father's medical hx. Mother Family Medical History: No Reported History Additional Family Medical History / Comment(s): Mother is healthy. Brother(s) Additional Family Medical History / Comment(s): Patient has 3 brothers and one suffers from alcohol abuse. 2 brothers have no major medical problems. Patient does not have any sisters. Patient is one daughter 12 years old with no major medical problems. General Exam Limitations: no limitations General appearance: alert, in no apparent distress Head exam: Present: atraumatic, normocephalic Eye exam: Present: normal appearance. Absent: scleral icterus, conjunctival injection ENT exam: Present: normal oropharynx Neck exam: Present: normal inspection Respiratory exam: Present: normal lung sounds bilaterally. Absent: respiratory distress, wheezes, rales, rhonchi, stridor Cardiovascular Exam: Present: regular rate, normal rhythm, normal heart sounds. Absent: systolic murmur, diastolic murmur, rubs, gallop GI/Abdominal exam: Present: soft. Absent: distended, tenderness, guarding, rebound, rigid, pulsatile mass, hernia Extremities exam: Present: normal inspection, normal capillary refill. Absent: pedal edema, calf tenderness Back exam: Present: normal inspection. Absent: CVA tenderness (R), CVA te nderness (L) Neurological exam: Present: alert Skin exam: Present: warm, dry, intact, normal color. Absent: rash Course Vital Signs 10/08/19 10/09/19 10/09/19 23:58 01:18 02:19 Temperature 99.6 F 99.3 F 99.3 F Pulse Rate 77 73 73 Respiratory 18 18 18 Rate Blood Pressure 118/80 123/89 123/89 O2 Sat by Pulse 100 98 98 Oximetry Medical Decision Making - Medical Decision Making Patient's 43-year-old man presenting with upper abdominal pain. He has had good relief of symptoms with analgesia and does request to go home. The labs are suggestive of a little bit of exacerbation of chronic pancreatitis. Discussed appropriate further care and follow-up as well as return parameters - Lab Data Result diagrams: 10/09/19 00:11 10/09/19 00:11 Lab Results 10/09/19 10/09/19 10/09/19 Range/Units 00:11 00:11 00:11 WBC 4.0 (3.8-10.6) k/uL RBC 3.83 L (4.30-5.90) m/uL Hgb 11.8 L (13.0-17.5) gm/dL Hct 36.1 L (39.0-53.0) % MCV 94.4 (80.0-100.0) fL MCH 30.8 (25.0-35.0) pg MCHC 32.6 (31.0-37.0) g/dL RDW 17.7 H (11.5-15.5) % Plt Count 49 L (150-450) k/uL Neutrophils % 76 % Lymphocytes % 11 % Monocytes % 9 % Eosinophils % 2 % Basophils % 1 % Neutrophils # 3.0 (1.3-7.7) k/uL Lymphocytes # 0.5 L (1.0-4.8) k/uL Monocytes # 0.4 (0-1.0) k/uL Eosinophils # 0.1 (0-0.7) k/uL Basophils # 0.0 (0-0.2) k/uL Manual Slide Review Performed Anisocytosis Slight Sodium 136 L (137-145) mmol/L Potassium 4.3 (3.5-5.1) mmol/L Chloride 108 H (98-107) mmol/L Carbon Dioxide 20 L (22-30) mmol/L Anion Gap 8 mmol/L BUN 26 H (9-20) mg/dL Creatinine 0.98 (0.66-1.25) mg/dL Est GFR (CKD-EPI)AfAm >90 (>60 ml/min/1.73 sqM) Est GFR (CKD-EPI)NonAf >90 (>60 ml/min/1.73 sqM) Glucose 168 H (74-99) mg/dL Calcium 8.9 (8.4-10.2) mg/dL Total Bilirubin 2.1 H (0.2-1.3) mg/dL AST 32 (17-59) U/L ALT 13 (4-49) U/L Alkaline Phosphatase 51 (38-126) U/L Ammonia 43 H (<30) umol/L Total Protein 7.1 (6.3-8.2) g/dL Albumin 3.7 (3.5-5.0) g/dL Amylase 121 H (30-110) U/L Lipase 620 H (23-300) U/L Urine Color Urine Appearance (Clear) Urine pH (5.0-8.0) Ur Specific [place] (1.001-1.035) Urine Protein (Negative) Urine Glucose (UA) (Negative) Urine Ketones (Negative) Urine Blood (Negative) Urine Nitrite (Negative) Urine Bilirubin (Negative) Urine Urobilinogen (<2.0) mg/dL Ur Leukocyte Esterase (Negative) Serum Alcohol <10 mg/dL 10/09/19 Range/Units 00:41 WBC (3.8-10.6) k/uL RBC (4.30-5.90) m/uL Hgb (13.0-17.5) gm/dL Hct (39.0-53.0) % MCV (80.0-100.0) fL MCH (25.0-35.0) pg MCHC (31.0-37.0) g/dL RDW (11.5-15.5) % Plt Count (150-450) k/uL Neutrophils % % Lymphocytes % % Monocytes % % Eosinophils % % Basophils % % Neutrophils # (1.3-7.7) k/uL Lymphocytes # (1.0-4.8) k/uL Monocytes # (0-1.0) k/uL Eosinophils # (0-0.7) k/uL Basophils # (0-0.2) k/uL Manual Slide Review Anisocytosis Sodium (137-145) mmol/L Potassium (3.5-5.1) mmol/L Chloride (98-107) mmol/L Carbon Dioxide (22-30) mmol/L Anion Gap mmol/L BUN (9-20) mg/dL Creatinine (0.66-1.25) mg/dL Est GFR (CKD-EPI)AfAm (>60 ml/min/1.73 sqM) Est GFR (CKD-EPI)NonAf (>60 ml/min/1.73 sqM) Glucose (74-99) mg/dL Calcium (8.4-10.2) mg/dL Total Bilirubin (0.2-1.3) mg/dL AST (17-59) U/L ALT (4-49) U/L Alkaline Phosphatase (38-126) U/L Ammonia (<30) umol/L Total Protein (6.3-8.2) g/dL Albumin (3.5-5.0) g/dL Amylase (30-110) U/L Lipase (23-300) U/L Urine Color Yellow Urine Appearance Clear (Clear) Urine pH 6.0 (5.0-8.0) Ur Specific [place] 1.026 (1.001-1.035) Urine Protein Trace H (Negative) Urine Glucose (UA) Negative (Negative) Urine Ketones Negative (Negative) Urine Blood Negative (Negative) Urine Nitrite Negative (Negative) Urine Bilirubin Negative (Negative) Urine Urobilinogen 3.0 (<2.0) mg/dL Ur Leukocyte Esterase Negative (Negative) Serum Alcohol mg/dL Disposition Clinical Impression: Chronic pancreatitis Disposition: HOME SELF-CARE Condition: Good Instructions (If sedation given, give patient instructions): Pancreatitis (ED) Is patient prescribed a controlled substance at d/c from ED?: No Referrals: Pablo Linn MD [Primary Care Provider] - 1-2 days
== END 2019-10-09 02:26 | disposition home or self-care (01) ==
LOC: EC 23:53
DX: K86.1 Other chronic pancreatitis (principal); K21.9 Gastro-esophageal reflux disease without esophagitis; I10 Essential (primary) hypertension; E07.9 Disorder of thyroid, unspecified; F17.200 Nicotine dependence, unspecified, uncomplicated; Z79.890 Hormone replacement therapy; Z90.89 Acquired absence of other organs; Z96.60 Presence of unspecified orthopedic joint implant
CPT/HCPCS: 36415; 80053; 82140; 82150; 83690; 85025; 81003; 99284; 96374; G0480; J2270; 80320

== ENCOUNTER 2019-10-12 18:34 | Inpatient (IN) | payer MEDICARE ==
[2019-10-12] MEDS ORDERED: PANTOPRAZOLE 40 MG/10 ML VIAL IVP STA (19:11)
[2019-10-12] MEDS ORDERED: SODIUM CHLORIDE 0.9% 1,000 ML IV STA ×2 (19:11)
[2019-10-12] MEDS ORDERED: MORPHINE SULFATE 4 MG/ML SYRINGE IV STA (19:11)
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
[2019-10-12 19:57] LABS: ALT 15 U/L (4-49); AST 32 U/L (17-59); African American GFR (CKD) >90 (>60 ml/min/1.73 sqM); Albumin 3.3 g/dL (3.5-5.0); Alkaline Phosphatase 54 U/L (38-126); Amylase 205 U/L (30-110); Anion Gap 8 mmol/L; Anisocytosis Slight; Basophils % (A) 1 %; Blood Urea Nitrogen 27 mg/dL (9-20); Calcium 8.6 mg/dL (8.4-10.2); Carbon Dioxide 18 mmol/L (22-30); Chloride 112 mmol/L (98-107); Creatine Kinase <20 U/L (55-170); Eosinophils # (A) 0.1 k/uL (0-0.7); Eosinophils % (A) 4 %; Glucose 184 mg/dL (74-99); HCT 33.6 % (39.0-53.0); HGB 11.2 gm/dL (13.0-17.5); Lymphocytes # (A) 0.5 k/uL (1.0-4.8); Lymphocytes % (A) 23 %; MCH 31.2 pg (25.0-35.0); MCHC 33.5 g/dL (31.0-37.0); MCV 93.2 fL (80.0-100.0); Mean Platelet Volume 8.9; Monocytes # (A) 0.2 k/uL (0-1.0); Monocytes % (A) 12 %; Neutrophils # (A) 1.2 k/uL (1.3-7.7); Neutrophils % (A) 57 %; Non-African American GFR(CKD) >90 (>60 ml/min/1.73 sqM); Potassium 3.9 mmol/L (3.5-5.1); RBC 3.61 m/uL (4.30-5.90); RDW 17.4 % (11.5-15.5); Sodium 138 mmol/L (137-145); Total Bilirubin 1.7 mg/dL (0.2-1.3); Total Protein 6.6 g/dL (6.3-8.2); WBC 2.1 k/uL (3.8-10.6)
[2019-10-12 20:00] LABS: INR 1.3 (<1.2); Partial Thromboplastin Time 23.7 sec (22.0-30.0); Prothrombin Time 13.1 sec (9.0-12.0)
[2019-10-12 20:01] LABS: Platelet Count 45 k/uL (150-450)
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
[2019-10-12] MEDS ORDERED: HYDROmorphone 1 MG/ML 1 ML SYRINGE IVP STA (21:03)
[2019-10-12] MEDS ORDERED: ONDANSETRON 4 MG/2 ML VIAL IVP STA (21:03)
[2019-10-12] MEDS ORDERED: ONDANSETRON 4 MG/2 ML VIAL IVP PRN (21:03)
[2019-10-12] MEDS ORDERED: LORazepam 2 MG/ML INJ IV PRN ×3 (21:04)
[2019-10-12] MEDS ORDERED: THIAMINE 100 MG/ML 2 ML VIAL IM STA (21:04)
[2019-10-12] MEDS ORDERED: LACTULOSE 20 GM/30 ML CUP PO PRN (22:01)
[2019-10-12] MEDS ORDERED: SUCRALFATE 1 GM TAB PO PRN (22:01)
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
[2019-10-13] MEDS: THIAMINE 100 MG TAB PO SCH ×2 (00:41→07:38)
[2019-10-13] MEDS: HYDROmorphone 1 MG/ML 1 ML SYRINGE IVP PRN ×4 (02:52→12:57)
[2019-10-13] MEDS ORDERED: LEVOTHYROXINE 25 MCG TAB PO SCH (06:30)
[2019-10-13] MEDS ORDERED: THIAMINE 100 MG TAB PO SCH (07:30)
[2019-10-13] MEDS: MIDODRINE 5 MG TAB PO SCH ×2 (07:40→12:43)
[2019-10-13] MEDS: LIPASE 5,000/PROTEASE 17,000/AMYLASE 24,000 PO SCH ×2 (07:45→12:42)
[2019-10-13 08:54] LABS: Anisocytosis Slight; Basophils % (A) 1 %; Eosinophils # (A) 0.1 k/uL (0-0.7); Eosinophils % (A) 5 %; HCT 30.6 % (39.0-53.0); HGB 10.1 gm/dL (13.0-17.5); Hypochromasia Slight; Lymphocytes # (A) 0.3 k/uL (1.0-4.8); Lymphocytes % (A) 23 %; MCH 31.1 pg (25.0-35.0); MCV 94.3 fL (80.0-100.0); Monocytes # (A) 0.1 k/uL (0-1.0); Monocytes % (A) 11 %; Neutrophils # (A) 0.7 k/uL (1.3-7.7); Neutrophils % (A) 58 %; RBC 3.24 m/uL (4.30-5.90); RDW 17.7 % (11.5-15.5)
[2019-10-13 08:58] VITALS: BP 117/77; PULSE 75; RESP 18; TEMP 97.8
[2019-10-13] MEDS ORDERED: MULTIVITAMINS, THERA 1 EACH TAB PO SCH (09:00)
[2019-10-13] MEDS ORDERED: MAGNESIUM OXIDE 400 MG TAB PO SCH (09:00)
[2019-10-13] MEDS ORDERED: SPIRONOLACTONE 25 MG TAB PO SCH (09:00)
[2019-10-13] MEDS ORDERED: FUROSEMIDE 40 MG TAB PO SCH (09:00)
[2019-10-13] MEDS ORDERED: RIFAXIMIN 550 MG TABLET PO SCH (09:00)
[2019-10-13] MEDS ORDERED: PANTOPRAZOLE SODIUM 20 MG PO SCH (09:00)
[2019-10-13] MEDS ORDERED: PANTOPRAZOLE 40 MG/10 ML VIAL IVP SCH (09:00)
[2019-10-13] MEDS ORDERED: NON FORMULARY DRUG (Vitamin B Complex [Vitamin B Complex] 1 CAP) PO SCH (09:00)
[2019-10-13 09:10] LABS: INR 1.4 (<1.2); Prothrombin Time 14.1 sec (9.0-12.0)
[2019-10-13 09:13] LABS: ALT 14 U/L (4-49); AST 30 U/L (17-59); African American GFR (CKD) >90 (>60 ml/min/1.73 sqM); Albumin 2.7 g/dL (3.5-5.0); Alkaline Phosphatase 45 U/L (38-126); Anion Gap 3 mmol/L; Blood Urea Nitrogen 21 mg/dL (9-20); Calcium 7.7 mg/dL (8.4-10.2); Carbon Dioxide 21 mmol/L (22-30); Chloride 116 mmol/L (98-107); Glucose 100 mg/dL (74-99); Non-African American GFR(CKD) >90 (>60 ml/min/1.73 sqM); Potassium 4.3 mmol/L (3.5-5.1); Sodium 140 mmol/L (137-145); Total Bilirubin 1.6 mg/dL (0.2-1.3); Total Protein 5.8 g/dL (6.3-8.2)
[2019-10-13 09:15] LABS: WBC 1.2 k/uL (3.8-10.6)
[2019-10-13 09:16] LABS: Platelet Count 34 k/uL (150-450)
[2019-10-13 11:22] VITALS: BMI 18.6
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
[2019-10-13] MEDS ORDERED: PROPRANOLOL LA 80 MG CAP.SA.24H PO SCH (16:00)
--- NOTE | 2019-10-15 13:25 | CDI ---
Documentation Clarification Form Date: 10/15/19 From: Michelle Haro CCS Phone: If you have a question about this query, please contact Nicole Trivedi, Executive Candidate Developer at [phone] between 8am and 5pm. Admit Date: 10/12/19 Discharge Date:10/13/19 Patient Name: Armin Arriaga Visit Number: [id number] ATTENTION: The Clinical Documentation Specialists (CDI) and [facility] Coding Staff appreciate your assistance in clarifying documentation. Please respond to the clarification below the line at the bottom and electronically sign. The CDI & [facility] Coding staff will review the response and follow-up if needed. Please note: Queries are made part of the Legal Health Record. If you have any questions, please contact the author of this message via ITS. Dear Dr. Bateman, Patient has been described as underweight with inadequate energy intake. History/Risk Factors: Alcohol abuse, Cirrhosis, Hepatitis, Pancreatitis, Pancytopenis, HTN, Gastric ulcer Clinical Indicators: Underweight, inadequate energy intake, abdominal distention, ascites Patients weight is: 57.153 kg Patients height is: 5 ft 9 in Calculated BMI is: 18.6 Labs: Albumin 3.3, 2.7- Total Protein 6.6, 5.8 Treatments: Enlive TID w/ diet advancement Nutritional Education: Survival information, nutrition relationship to health/disease Dietary Consult: 10/13/19 In order to capture the severity of condition associated with patient BMI of 18.6, a clinical diagnosis needs to be documented by the physician. Please clarify: Cachexia Underweight Malnutrition Mild xx Moderate Severe Other Unable to determine MTDD
== END 2019-10-13 13:18 | disposition home or self-care (01) | DRG 439 ==
LOC: EC 18:34 → 4SSUR 21:03
PROVIDERS: ADMIT Internal Medicine Geriatric Medicine; ATTEND Internal Medicine Geriatric Medicine
DX: K85.90 Acute pancreatitis without necrosis or infection, unspecified (principal); K76.6 Portal hypertension; D61.818 Other pancytopenia; D68.9 Coagulation defect, unspecified; I85.10 Secondary esophageal varices without bleeding; E44.0 Moderate protein-calorie malnutrition; Z68.1 Body mass index [BMI] 19.9 or less, adult; K70.31 Alcoholic cirrhosis of liver with ascites; K70.11 Alcoholic hepatitis with ascites; I95.9 Hypotension, unspecified; K86.1 Other chronic pancreatitis; I10 Essential (primary) hypertension; K21.9 Gastro-esophageal reflux disease without esophagitis; E03.9 Hypothyroidism, unspecified; G89.29 Other chronic pain; M51.36 Other intervertebral disc degeneration, lumbar region; M48.00 Spinal stenosis, site unspecified; G62.9 Polyneuropathy, unspecified; F32.9 Major depressive disorder, single episode, unspecified; F17.210 Nicotine dependence, cigarettes, uncomplicated; M10.9 Gout, unspecified; R16.1 Splenomegaly, not elsewhere classified; K29.50 Unspecified chronic gastritis without bleeding; K25.7 Chronic gastric ulcer without hemorrhage or perforation; F10.10 Alcohol abuse, uncomplicated; Z71.3 Dietary counseling and surveillance; Z79.890 Hormone replacement therapy; Z79.899 Other long term (current) drug therapy; Z87.19 Personal history of other diseases of the digestive system; Z86.2 Personal history of diseases of the blood and blood-forming organs and certain disorders involving the immune mechanism; Z96.60 Presence of unspecified orthopedic joint implant; Z90.49 Acquired absence of other specified parts of digestive tract; Z98.890 Other specified postprocedural states; Z81.1 Family history of alcohol abuse and dependence
CPT/HCPCS: 36415; 74177; 80053; 82150; 82550; 83605; 83690; 85025; 85610; 85730; 96361; 96374; 96375; 99285

== ENCOUNTER 2019-10-14 13:48 | Observation (INO) | payer MEDICARE ==
[2019-10-14] MEDS ORDERED: MORPHINE SULFATE 2 MG/ML SYRINGE IVP STA (14:28)
--- NOTE | 2019-10-14 14:31 | ED ---
General Adult HPI - General Source: patient, RN notes reviewed, old records reviewed Mode of arrival: ambulatory Limitations: no limitations <Waylon Solorio - Last Filed: 10/14/19 17:44> <Britany Dailey - Last Filed: 10/19/19 07:46> - General Chief complaint: Abdominal Pain Stated complaint: abdominal pain Time Seen by Provider: 10/14/19 14:12 - History of Present Illness Initial comments: 43-year-old male patient past history significant for stage IV liver failure presents to ED for evaluation of abdominal pain and pancreatitis. Patient was recently admitted and reportedly left AGAINST MEDICAL ADVICE yesterday for pancreatitis. Reports the pain has not improved. Reports epigastric abdominal pain. Denies any other complaints. Systemic: Pt denies fatigue, fever/chills, rash. Pt denies weakness, night sweats, weight loss. Neuro: Pt denies headache, visual disturbances, syncope or pre-syncope. HEENT: Pt denies ocular discharge or irritation, otalgia, rhinorrhea, pharyngitis or notable lymphadenopathy. Cardiopulmonary: Pt denies chest pain, SOB, heart palpitations, dyspnea on exertion. Abdominal/GI: Pt denies n/v/d. : Pt denies dysuria, burning w/ urination, frequency/urgency. Denies new onset urinary or bowel incontinence. MSK: Pt denies myalgia, loss of strength or function in extremities. Neuro: Pt denies new onset weakness, paresthesias. (Waylon Solorio) - Related Data Home Medications Medication Instructions Recorded Confirmed Rifaximin [Xifaxan] 550 mg PO DAILY 08/02/18 10/14/19 Sucralfate [Carafate] 1 gm PO ACHS PRN 09/22/18 10/14/19 Multivitamins, Thera [Multivitamin 1 tab PO DAILY 10/18/18 10/14/19 (formulary)] Vitamin B Complex 1 cap PO DAILY 10/18/18 10/14/19 Lactulose [Constulose] 20 gm PO TID PRN 03/11/19 10/14/19 Levothyroxine Sodium [Synthroid] 25 mcg PO DAILY 06/27/19 10/14/19 Magnesium 200 mg PO TID 06/27/19 10/14/19 Propranolol HCl [Inderal Xl] 80 mg PO DAILY 06/27/19 10/14/19 Spironolactone 100 mg PO BID@0900,1600 07/04/19 10/14/19 Furosemide [Lasix] 40 mg PO BID@0900,1600 07/11/19 10/14/19 Lipase/Protease/Amylase [Zenpep Dr 10,000 unit PO AC-TID 10/02/19 10/14/19 5,000 Unit Capsule] Thiamine [Vitamin B-1] 100 mg PO AC-BID 10/02/19 10/14/19 Midodrine HCl [ProAmatine] 10 mg PO TID 10/12/19 10/14/19 Pantoprazole Sodium [Protonix] 20 mg PO BID 10/12/19 10/14/19 Previous Rx's Medication Instructions Recorded oxyCODONE HCL [OxyIR] 5 - 10 mg PO Q6H PRN #10 tab 10/15/19 Allergies Allergy/AdvReac Type Severity Reaction Status Date / Time No Known Allergies Allergy Verified 10/14/19 17:39 Review of Systems ROS Other: All systems not noted in ROS Statement are negative. <Waylon Solorio - Last Filed: 10/14/19 17:44> ROS Other: All systems not noted in ROS Statement are negative. <Britany Dailey - Last Filed: 10/19/19 07:46> ROS Statement: Those systems with pertinent positive or pertinent negative responses have been documented in the HPI. Past Medical History Past Medical History: GERD/Reflux, GI Bleed, Hypertension, Liver Disease, Thyroid Disorder Additional Past Medical History / Comment(s): Liver cirrhosis stage 4 portal htn, ETOH abuse, esophageal varicies, upper GI bleed, chronic thrombocytopenia, coagulopathy, pancytopenia, ascities, spinal stenosis: back/leg and feet pain, DDD, chronic back pain, neuropathy bilateral legs/feet, falls, bronchitis, 2010 [facility] [place], chronic pancreatitis History of Any Multi-Drug Resistant Organisms: None Reported Past Surgical History: Appendectomy, Joint Replacement Additional Past Surgical History / Comment(s): EGDs, paracentesis about two months ago, back injections, R thumb reattachment, circumcism. Past Anesthesia/Blood Transfusion Reactions: No Reported Reaction Additional Past Anesthesia/Blood Transfusion Reaction / Comment(s): Pt has received blood without reaction. Past Psychological History: Depression Smoking Status: Current some day smoker Past Alcohol Use History: None Reported Past Drug Use History: Marijuana - Past Family History Father Family Medical History: Unable to Obtain Additional Family Medical History / Comment(s): Pt does not know his father's medical hx. Mother Family Medical History: No Reported History Additional Family Medical History / Comment(s): Mother is healthy. Brother(s) Additional Family Medical History / Comment(s): Patient has 3 brothers and one suffers from alcohol abuse. 2 brothers have no major medical problems. Patient does not have any sisters. Patient is one daughter 12 years old with no major medical problems. <Waylon Solorio - Last Filed: 10/14/19 17:44> General Exam Limitations: no limitations <Waylon Solorio - Last Filed: 10/14/19 17:44> - General Exam Comments Initial Comments: Constitutional: NAD, AOX3, Pt has pleasant affect. HEENT: NC/AT, trachea midline, neck supple, no lymphadenopathy. External ears appear normal, without discharge. Mucous membranes moist. Eyes PERRLA, EOM intact. There is no scleral icterus. No pallor noted. Cardiopulmonary: RRR, no murmurs, rubs or gallops, no JVD noted. Lungs CTAB in anterior and posterior maya. No peripheral edema. Abdominal exam: Abdomen soft and moderately distended. Abdomen mildly tender to palpation epigastric region.. Bowel sounds active in LLQ. No hepatosplen omegaly. No ecchymosis Neuro: CN II-XII grossly intact. No nuchal rigidity. MSK: Full active ROM in upper and lower extremities, 5/5 stregnth. (Waylon Solorio) Course Vital Signs 10/14/19 10/14/19 10/14/19 14:03 17:19 19:03 Temperature 98.6 F 99.0 F Pulse Rate 88 74 71 Respiratory 16 14 16 Rate Blood Pressure 101/70 124/87 113/85 O2 Sat by Pulse 100 98 100 Oximetry Medical Decision Making - Lab Data Result diagrams: 10/14/19 15:04 10/14/19 15:04 <Waylon Solorio - Last Filed: 10/14/19 17:44> - Lab Data Result diagrams: 10/15/19 07:09 10/15/19 07:09 <Britany Dailey - Last Filed: 10/19/19 07:46> - Medical Decision Making 43-year-old male patient history of liver failure presents ED and epigastric abdominal pain, pancreatitis patient was hospitalized and left against medical advice yesterday. Which the admitted today. Denies any other complaints. Patient does also have a moderately acetic abdomen has not paracentesis in months reportedly. Will be admitted for further evaluation. Case discussed with Dr. Dailey (Waylon Solorio) I was available for consultation in the emergency department. The history and physical exam were done by the midlevel provider. I was consulted for this patients care. I reviewed the case with the midlevel provider and based on their presentation of the patient, I agree with the assessment, medical decision making and plan of care as documented. I discussed the case with Dr. Bingham who previously admitted the patient. He does refuse admission. I discussed the case with Dr. Justa banerjee who did agree to admit the patient. Chart was dictated using [employer] dictation software. Attempts were made to correct any dictation errors however some typographical errors may persist. (Britany Dailey) - Lab Data Lab Results 10/14/19 10/14/19 10/14/19 Range/Units 15:04 15:04 15:04 WBC 2.5 L (3.8-10.6) k/uL RBC 3.59 L (4.30-5.90) m/uL Hgb 10.9 L (13.0-17.5) gm/dL Hct 33.6 L (39.0-53.0) % MCV 93.6 (80.0-100.0) fL MCH 30.4 (25.0-35.0) pg MCHC 32.4 (31.0-37.0) g/dL RDW 17.3 H (11.5-15.5) % Plt Count 37 L (150-450) k/uL Neutrophils % 65 % Lymphocytes % 17 % Monocytes % 12 % Eosinophils % 3 % Basophils % 1 % Neutrophils # 1.7 (1.3-7.7) k/uL Lymphocytes # 0.4 L (1.0-4.8) k/uL Monocytes # 0.3 (0-1.0) k/uL Eosinophils # 0.1 (0-0.7) k/uL Basophils # 0.0 (0-0.2) k/uL Anisocytosis Slight PT 13.7 H (9.0-12.0) sec INR 1.4 H (<1.2) APTT 24.3 (22.0-30.0) sec Sodium 137 (137-145) mmol/L Potassium 3.9 (3.5-5.1) mmol/L Chloride 113 H (98-107) mmol/L Carbon Dioxide 19 L (22-30) mmol/L Anion Gap 5 mmol/L BUN 19 (9-20) mg/dL Creatinine 0.76 (0.66-1.25) mg/dL Est GFR (CKD-EPI)AfAm >90 (>60 ml/min/1.73 sqM) Est GFR (CKD-EPI)NonAf >90 (>60 ml/min/1.73 sqM) Glucose 140 H (74-99) mg/dL Calcium 8.6 (8.4-10.2) mg/dL Total Bilirubin 2.0 H (0.2-1.3) mg/dL AST 36 (17-59) U/L ALT 15 (4-49) U/L Alkaline Phosphatase 62 (38-126) U/L Total Protein 6.2 L (6.3-8.2) g/dL Albumin 3.0 L (3.5-5.0) g/dL Lipase 1160 H (23-300) U/L Urine Color Urine Appearance (Clear) Urine pH (5.0-8.0) Ur Specific Desmet (1.001-1.035) Urine Protein (Negative) Urine Glucose (UA) (Negative) Urine Ketones (Negative) Urine Blood (Negative) Urine Nitrite (Negative) Urine Bilirubin (Negative) Urine Urobilinogen (<2.0) mg/dL Ur Leukocyte Esterase (Negative) Serum Alcohol <10 mg/dL 10/14/19 Range/Units 15:05 WBC (3.8-10.6) k/uL RBC (4.30-5.90) m/uL Hgb (13.0-17.5) gm/dL Hct (39.0-53.0) % MCV (80.0-100.0) fL MCH (25.0-35.0) pg MCHC (31.0-37.0) g/dL RDW (11.5-15.5) % Plt Count (150-450) k/uL Neutrophils % % Lymphocytes % % Monocytes % % Eosinophils % % Basophils % % Neutrophils # (1.3-7.7) k/uL Lymphocytes # (1.0-4.8) k/uL Monocytes # (0-1.0) k/uL Eosinophils # (0-0.7) k/uL Basophils # (0-0.2) k/uL Anisocytosis PT (9.0-12.0) sec INR (<1.2) APTT (22.0-30.0) sec Sodium (137-145) mmol/L Potassium (3.5-5.1) mmol/L Chloride (98-107) mmol/L Carbon Dioxide (22-30) mmol/L Anion Gap mmol/L BUN (9-20) mg/dL Creatinine (0.66-1.25) mg/dL Est GFR (CKD-EPI)AfAm (>60 ml/min/1.73 sqM) Est GFR (CKD-EPI)NonAf (>60 ml/min/1.73 sqM) Glucose (74-99) mg/dL Calcium (8.4-10.2) mg/dL Total Bilirubin (0.2-1.3) mg/dL AST (17-59) U/L ALT (4-49) U/L Alkaline Phosphatase (38-126) U/L Total Protein (6.3-8.2) g/dL Albumin (3.5-5.0) g/dL Lipase (23-300) U/L Urine Color Yellow Urine Appearance Clear (Clear) Urine pH 6.5 (5.0-8.0) Ur Specific Desmet 1.025 (1.001-1.035) Urine Protein Negative (Negative) Urine Glucose (UA) Negative (Negative) Urine Ketones Negative (Negative) Urine Blood Negative (Negative) Urine Nitrite Negative (Negative) Urine Bilirubin Negative (Negative) Urine Urobilinogen 8.0 (<2.0) mg/dL Ur Leukocyte Esterase Negative (Negative) Serum Alcohol mg/dL Disposition Is patient prescribed a controlled substance at d/c from ED?: No <Waylon Solorio - Last Filed: 10/14/19 17:44> <Britany Dailey - Last Filed: 10/19/19 07:46> Clinical Impression: Pancreatitis, Chronic liver failure Disposition: ADMITTED IP TO THIS HOSP Condition: Stable
[2019-10-14 15:30] LABS: Appearance,Urine Clear (Clear); Bilirubin,Urine Negative (Negative); Blood,Urine Negative (Negative); Color,Urine Yellow; Glucose,Urine (UA) Negative (Negative); Ketones,Urine Negative (Negative); Leukocyte Esterase,Urine Negative (Negative); Nitrite,Urine Negative (Negative); PH, Urine 6.5 (5.0-8.0); Protein,Urine Negative (Negative); Specific Gravity,Urine 1.025 (1.001-1.035)
[2019-10-14 15:33] LABS: Anisocytosis Slight; Basophils % (A) 1 %; Eosinophils # (A) 0.1 k/uL (0-0.7); Eosinophils % (A) 3 %; HCT 33.6 % (39.0-53.0); HGB 10.9 gm/dL (13.0-17.5); Lymphocytes # (A) 0.4 k/uL (1.0-4.8); Lymphocytes % (A) 17 %; MCH 30.4 pg (25.0-35.0); MCHC 32.4 g/dL (31.0-37.0); MCV 93.6 fL (80.0-100.0); Mean Platelet Volume 8.7; Monocytes # (A) 0.3 k/uL (0-1.0); Monocytes % (A) 12 %; Neutrophils # (A) 1.7 k/uL (1.3-7.7); Neutrophils % (A) 65 %; RBC 3.59 m/uL (4.30-5.90); RDW 17.3 % (11.5-15.5); WBC 2.5 k/uL (3.8-10.6)
[2019-10-14 15:34] LABS: ALT 15 U/L (4-49); AST 36 U/L (17-59); African American GFR (CKD) >90 (>60 ml/min/1.73 sqM); Alcohol <10 mg/dL; Alkaline Phosphatase 62 U/L (38-126); Anion Gap 5 mmol/L; Blood Urea Nitrogen 19 mg/dL (9-20); Calcium 8.6 mg/dL (8.4-10.2); Carbon Dioxide 19 mmol/L (22-30); Chloride 113 mmol/L (98-107); Glucose 140 mg/dL (74-99); Non-African American GFR(CKD) >90 (>60 ml/min/1.73 sqM); Potassium 3.9 mmol/L (3.5-5.1); Sodium 137 mmol/L (137-145); Total Protein 6.2 g/dL (6.3-8.2)
[2019-10-14 15:40] LABS: INR 1.4 (<1.2); Partial Thromboplastin Time 24.3 sec (22.0-30.0); Prothrombin Time 13.7 sec (9.0-12.0)
--- NOTE | 2019-10-14 15:46 | XR ---
EXAMINATION TYPE: XR KUB DATE OF EXAM: 10/14/2019 3:40 PM CLINICAL HISTORY: Abdominal pain TECHNIQUE: Upright images of the abdomen and pelvis were obtained COMPARISON: 09/20/2019 abdominal radiograph. FINDINGS: Scattered gas is seen in non-distended small bowel loops. Gas and fecal material is seen in non-distended colon. Splenomegaly. No pneumoperitoneum. The lung bases are clear. The osseous struct ures are intact. IMPRESSION: 1. Nonspecific bowel gas pattern. 2. Splenomegaly.
[2019-10-14 16:12] LABS: Platelet Count 37 k/uL (150-450)
[2019-10-14] MEDS ORDERED: MORPHINE SULFATE 4 MG/ML SYRINGE IV STA (17:07)
[2019-10-14] MEDS ORDERED: NALOXONE 0.4 MG/ML 1 ML VIAL IV PRN (17:09)
[2019-10-14 19:04] VITALS: RESP 16
[2019-10-14] MEDS ORDERED: LACTULOSE 20 GM/30 ML CUP PO PRN (21:08)
[2019-10-14] MEDS ORDERED: SUCRALFATE 1 GM TAB PO PRN (21:08)
--- NOTE | 2019-10-14 21:10 | P.HPIM ---
History of Present Illness H&P Date: 10/14/19 The patient is a 43-year-old male with a PMH of end-stage liver disease (portal hypertension, history of esophageal varices with GI bleeding), hyperlipidemia, peripheral neuropathy with spinal DJD, and history of gout presented to the ED with complaints of abdominal pain and recurrent ascites. The patient was recently discharged from the hospital on 10/12 when he was admitted for similar complaints. The patient reports that his pain recurred soon after discharge, is epigastric with radiation throughout the abdomen, 10 out of 10, with no clear alleviating or exacerbating features. The patient has a complicated history for his liver failure with concerns for ongoing EtOH abuse from previous providers. The patient was reportedly following with GI at [facility] for possible liver transplant. The patient had multiple admissions to the hospital for the above-mentioned complaints with pancreatitis. The patient reported nausea but denied vomiting. Denied fever, chills, or chest pain. Denies shortness of breath. He reported compliance with his medications at home. In the emergency room, laboratory evaluation revealed pancytopenia, INR elevated at 1.4, total bilirubin elevated at 2.0, and lipase of 1160. Review of Systems Pertinent positives and negatives as discussed in HPI, a complete review of systems was performed and all other systems are negative. Past Medical History Past Medical History: GERD/Reflux, GI Bleed, Hypertension, Liver Disease, Thyroid Disorder Additional Past Medical History / Comment(s): Liver cirrhosis stage 4 portal htn, ETOH abuse, esophageal varicies, upper GI bleed, chronic thrombocytopenia, coagulopathy, pancytopenia, ascities, spinal stenosis: back/leg and feet pain, DDD, chronic back pain, neuropathy bilateral legs/feet, falls, bronchitis, 2010 [facility] [place], chronic pancreatitis History of Any Multi-Drug Resistant Organisms: None Reported Past Surgical History: Appendectomy, Joint Replacement Additional Past Surgical History / Comment(s): EGDs, paracentesis about two months ago, back injections, R thumb reattachment, circumcism. Past Anesthesia/Blood Transfusion Reactions: No Reported Reaction Additional Past Anesthesia/Blood Transfusion Reaction / Comment(s): Pt has received blood without reaction. Past Psychological History: Depression Smoking Status: Current some day smoker Past Alcohol Use History: None Reported Past Drug Use History: Marijuana - Past Family History Father Family Medical History: Unable to Obtain Additional Family Medical History / Comment(s): Pt does not know his father's medical hx. Mother Family Medical History: No Reported History Additional Family Medical History / Comment(s): Mother is healthy. Brother(s) Additional Family Medical History / Comment(s): Patient has 3 brothers and one suffers from alcohol abuse. 2 brothers have no major medical problems. Patient does not have any sisters. Patient is one daughter 12 years old with no major medical problems. Medications and Allergies Home Medications Medication Instructions Recorded Confirmed Type Rifaximin [Xifaxan] 550 mg PO DAILY 08/02/18 10/14/19 History Sucralfate [Carafate] 1 gm PO ACHS PRN 09/22/18 10/14/19 History Multivitamins, Thera [Multivitamin 1 tab PO DAILY 10/18/18 10/14/19 History (formulary)] Vitamin B Complex 1 cap PO DAILY 10/18/18 10/14/19 History Lactulose [Constulose] 20 gm PO TID PRN 03/11/19 10/14/19 History Levothyroxine Sodium [Synthroid] 25 mcg PO DAILY 06/27/19 10/14/19 History Magnesium 200 mg PO TID 06/27/19 10/14/19 History Propranolol HCl [Inderal Xl] 80 mg PO DAILY 06/27/19 10/14/19 History Spironolactone 100 mg PO BID@0900,1600 07/04/19 10/14/19 History Furosemide [Lasix] 40 mg PO BID@0900,1600 07/11/19 10/14/19 History Lipase/Protease/Amylase [Zenpep Dr 10,000 unit PO AC-TID 10/02/19 10/14/19 History 5,000 Unit Capsule] Thiamine [Vitamin B-1] 100 mg PO AC-BID 10/02/19 10/14/19 History Midodrine HCl [ProAmatine] 10 mg PO TID 10/12/19 10/14/19 History Pantoprazole Sodium [Protonix] 20 mg PO BID 10/12/19 10/14/19 History Allergies Allergy/AdvReac Type Severity Reaction Status Date / Time No Known Allergies Allergy Verified 10/14/19 17:39 Physical Exam Vitals: Vital Signs Temp Pulse Resp BP Pulse Ox 10/14/19 19:03 99.0 F 71 16 113/85 100 10/14/19 17:19 74 14 124/87 98 10/14/19 14:03 98.6 F 88 16 101/70 100 Intake and Output 10/14/19 10/14/19 10/14/19 06:59 14:59 22:59 Other: Weight 57.153 kg General: Chronically ill-appearing male, no distress, appears older than at stated age, underweight Derm: no unusual rashes/lesions no unusual ecchymoses, warm, dry Head: atraumatic, normocephalic, symmetric Eyes: EOMI, no lid lag, anicteric sclera, pupils equal round reactive to light ENT: Nose and ears atraumatic, no thrush, no pharyngeal erythema Neck: No thyromegaly, no cervical lymphadenopathy, trachea midline, supple Mouth: no lip lesion, mucus membranes moist Cardiovascular: S1S2 reg, no murmur, positive posterior tibial pulse bilateral, no edema, capillary refill less than 2 seconds Lungs: CTA bilateral, no rhonchi, no rales , no accessory muscle use Abdominal: distended, diffuse tenderness, some guarding, no appreciable organomegaly, normal bowel sounds Ext: no gross muscle atrophy, muscle strength 5 out of 5 in all 4 extremities grossly, no contractures, Neuro: CN II-XI grossly intact, light touch intact all 4 extremities, finger to nose within normal limits, no asterixis Psych: Alert, oriented, appropriate affect Results CBC & Chem 7: 10/14/19 15:04 10/14/19 15:04 Labs: Abnormal Lab Results - Last 24 Hours (Table) 10/14/19 10/14/19 10/14/19 Range/Units 15:04 15:04 15:04 WBC 2.5 L (3.8-10.6) k/uL RBC 3.59 L (4.30-5.90) m/uL Hgb 10.9 L (13.0-17.5) gm/dL Hct 33.6 L (39.0-53.0) % RDW 17.3 H (11.5-15.5) % Plt Count 37 L (150-450) k/uL Lymphocytes # 0.4 L (1.0-4.8) k/uL PT 13.7 H (9.0-12.0) sec INR 1.4 H (<1.2) Chloride 113 H (98-107) mmol/L Carbon Dioxide 19 L (22-30) mmol/L Glucose 140 H (74-99) mg/dL Total Bilirubin 2.0 H (0.2-1.3) mg/dL Total Protein 6.2 L (6.3-8.2) g/dL Albumin 3.0 L (3.5-5.0) g/dL Lipase 1160 H (23-300) U/L Assessment and Plan Plan: Acute pancreatitis in setting of recurrent chronic pancreatitis -Gentle hydration in setting of liver failure and ascites -Monitor lipase -GI consult -Nothing by mouth for now -Pain control -Anti-emetics Pancytopenia, at baseline -Due to advanced liver failure Coagulopathy, INR 1.4 -At baseline End-stage liver disease, due to history of EtOH abuse -At baseline -Follows with GI at [facility] -GI consult -Hold off on spironolactone and lasix for now in setting of pancreatitis -C/w lactulose DVT prophylaxis -IPCDs The patient is admitted with an anticipated greater than 2 midnight stay for evaluation of pancreatitis CODE STATUS: Full Code Discussed with: Patient Anticipated discharge date: 2-[address]: Home A total of 40 minutes was spent on the care of this complex patient more than 50% of the time was spent in counseling and care coordination.
[2019-10-14] MEDS: MIDODRINE 5 MG TAB PO SCH (22:31)
[2019-10-14] MEDS: MAGNESIUM OXIDE 400 MG TAB PO SCH (22:31)
[2019-10-14] MEDS: MORPHINE SULFATE 2 MG/ML SYRINGE IVP PRN (22:32)
[2019-10-14] MEDS: SODIUM CHLORIDE 0.9% 1,000 ML IV SCH (22:33)
[2019-10-15] MEDS: MORPHINE SULFATE 2 MG/ML SYRINGE IVP PRN (03:50)
[2019-10-15] MEDS ORDERED: MORPHINE SULFATE 2 MG/ML SYRINGE IVP STA (04:44)
[2019-10-15] MEDS ORDERED: LEVOTHYROXINE 25 MCG TAB PO SCH (06:30)
[2019-10-15] MEDS: SODIUM CHLORIDE 0.9% 1,000 ML IV SCH ×2 (07:04→08:25)
[2019-10-15] MEDS ORDERED: THIAMINE 100 MG TAB PO SCH (07:30)
[2019-10-15 07:41] LABS: Anisocytosis Slight; HCT 34.3 % (39.0-53.0); HGB 11.1 gm/dL (13.0-17.5); Hypochromasia Slight; MCH 30.3 pg (25.0-35.0); MCHC 32.3 g/dL (31.0-37.0); RBC 3.65 m/uL (4.30-5.90); RDW 17.2 % (11.5-15.5); WBC 2.1 k/uL (3.8-10.6)
[2019-10-15 07:43] LABS: INR 1.5 (<1.2); Platelet Count 37 k/uL (150-450); Prothrombin Time 14.7 sec (9.0-12.0)
[2019-10-15 07:54] LABS: ALT 15 U/L (4-49); AST 34 U/L (17-59); African American GFR (CKD) >90 (>60 ml/min/1.73 sqM); Alkaline Phosphatase 52 U/L (38-126); Anion Gap 3 mmol/L; Blood Urea Nitrogen 16 mg/dL (9-20); Calcium 8.1 mg/dL (8.4-10.2); Carbon Dioxide 19 mmol/L (22-30); Chloride 115 mmol/L (98-107); Glucose 120 mg/dL (74-99); Magnesium 1.5 mg/dL (1.6-2.3); Non-African American GFR(CKD) >90 (>60 ml/min/1.73 sqM); Potassium 4.3 mmol/L (3.5-5.1); Sodium 137 mmol/L (137-145); Total Bilirubin 2.4 mg/dL (0.2-1.3); Total Protein 6.1 g/dL (6.3-8.2)
[2019-10-15] MEDS: LIPASE 5,000/PROTEASE 17,000/AMYLASE 24,000 PO SCH ×2 (08:17→12:34)
[2019-10-15] MEDS: MIDODRINE 5 MG TAB PO SCH ×2 (08:18→12:33)
[2019-10-15] MEDS: MAGNESIUM OXIDE 400 MG TAB PO SCH (08:18)
[2019-10-15] MEDS ORDERED: PROPRANOLOL LA 80 MG CAP.SA.24H PO SCH (09:00)
[2019-10-15] MEDS ORDERED: NON FORMULARY DRUG (Vitamin B Complex [Vitamin B Complex] 1 CAP) PO SCH (09:00)
[2019-10-15] MEDS ORDERED: MORPHINE SULFATE 4 MG/ML SYRINGE IVP PRN (09:00)
[2019-10-15] MEDS ORDERED: MULTIVITAMINS, THERA 1 EACH TAB PO SCH (09:00)
[2019-10-15] MEDS ORDERED: FUROSEMIDE 40 MG TAB PO SCH (09:00)
[2019-10-15] MEDS ORDERED: RIFAXIMIN 550 MG TABLET PO SCH (09:00)
[2019-10-15 09:51] VITALS: BMI 18.6
[2019-10-15 13:48] VITALS: BP 135/90; PULSE 62; TEMP 98
--- NOTE | 2019-10-15 15:47 | P.DS ---
Providers Date of admission: 10/14/19 21:09 Attending physician: Jordan Roque MD Consults: 10/14/19 17:10 Consult Physician Stat Consulting Provider: Macy Leiva Consult Reason/Comments: pancreatitis, abdominal pain, ascities Do you want consulting provider notified?: Yes Primary care physician: [facility] Course: 1. Acute on Chronic Pancreatitis 2. Pancytopenia 3. Coagulopathy 4. ESLD 43 year old man with history of ESLD, pancytopenia, and coagulopathy from ETOH abuse, as well as chronic pancreatitis presented with abdominal pain and was admitted for acute on chronic pancreatitis. Patient was placed NPO with IV PRN narcotic pain medications. By the time of my evaluation, patient reported feeling very hungry and requested to be advanced to a diet. However, he still reported pain as well, and was not favorable to switching to PO pain medications. He told me that he has a pain clinic appointment on thursday for his chronic abdominal pain, and that he had to be discharged before then. I explained to him that in the case of pancreatitis, the best treatment is to have nothing by mouth until the pain subsides to his baseline level of pain. However, patient told me that he would prefer to have a diet but continue his IV pain regimen since it gave him relief. I reiterated that this was not appropriate treatment for pancreatitis, and that if he felt he could tolerate a diet, he would be switched to PO pain medications. However, if he did not feel he could tolerate a diet, then the appropriate course of action is to remain NPO until the pain reduced. Given this information, patient reported that he would like to try a diet, since he "always had pain anyway." Patient was able to tolerate a diet and was switched to PO oxycodone without tylenol, which he tolerated well. He requested to be discharged since he was able to eat without nausea/vomiting. Patient reported that he will follow up with his pain clinic and his PCP. Given this fast turnaround, patient was discharged much faster than anticipated by the admitting provider. I spent more than 30 minutes preparing this discharge. Patient was discharged with a script for 10 tabs of oxycodone 5mg so that he could cover his pain requirement until his pain clinic appointment Thursday morning at 7:10am. Patient Condition at Discharge: Stable Plan - Discharge Summary Discharge Rx Participant: Yes New Discharge Prescriptions: New oxyCODONE HCL [OxyIR] 5 - 10 mg PO Q6H PRN #10 tab PRN Reason: Pain Continue Rifaximin [Xifaxan] 550 mg PO DAILY Sucralfate [Carafate] 1 gm PO ACHS PRN PRN Reason: Gi Upset Vitamin B Complex 1 cap PO DAILY Multivitamins, Thera [Multivitamin (formulary)] 1 tab PO DAILY Lactulose [Constulose] 20 gm PO TID PRN PRN Reason: Constipation Magnesium 200 mg PO TID Levothyroxine Sodium [Synthroid] 25 mcg PO DAILY Propranolol HCl [Inderal Xl] 80 mg PO DAILY Spironolactone 100 mg PO BID@0900,1600 Furosemide [Lasix] 40 mg PO BID@0900,1600 Lipase/Protease/Amylase [Zenpep Dr 5,000 Unit Capsule] 10,000 unit PO AC-TID Thiamine [Vitamin B-1] 100 mg PO AC-BID Midodrine HCl [ProAmatine] 10 mg PO TID Pantoprazole Sodium [Protonix] 20 mg PO BID Discharge Medication List Rifaximin [Xifaxan] 550 mg PO DAILY 08/02/18 [History] Sucralfate [Carafate] 1 gm PO ACHS PRN 09/22/18 [History] Multivitamins, Thera [Multivitamin (formulary)] 1 tab PO DAILY 10/18/18 [History] Vitamin B Complex 1 cap PO DAILY 10/18/18 [History] Lactulose [Constulose] 20 gm PO TID PRN 03/11/19 [History] Levothyroxine Sodium [Synthroid] 25 mcg PO DAILY 06/27/19 [History] Magnesium 200 mg PO TID 06/27/19 [History] Propranolol HCl [Inderal Xl] 80 mg PO DAILY 06/27/19 [History] Spironolactone 100 mg PO BID@0900,1600 07/04/19 [History] Furosemide [Lasix] 40 mg PO BID@0900,1600 07/11/19 [History] Lipase/Protease/Amylase [Zenpep Dr 5,000 Unit Capsule] 10,000 unit PO AC-TID 10/02/19 [History] Thiamine [Vitamin B-1] 100 mg PO AC-BID 10/02/19 [History] Midodrine HCl [ProAmatine] 10 mg PO TID 10/12/19 [History] Pantoprazole Sodium [Protonix] 20 mg PO BID 10/12/19 [History] oxyCODONE HCL [OxyIR] 5 - 10 mg PO Q6H PRN #10 tab 10/15/19 [Rx] Follow up Appointment(s)/Referral(s): Pablo Linn MD [Primary Care Provider] - 1-2 days Patient Instructions/Handouts: Pancreatitis (DC) Discharge Disposition: HOME SELF-CARE Care Plan Goals (MU): advance diet as tolerated advance activity as tolerated follow up with primary care doctor
== END 2019-10-15 15:14 | disposition home or self-care (01) ==
LOC: EC 13:48 → 5NMEDONC 17:55 → INTOOBSV 21:09 → OBSVTOIN 21:09 → UNDODISIN 10-15 15:14
PROVIDERS: ADMIT Family Medicine; ATTEND Family Medicine
DX: K85.90 Acute pancreatitis without necrosis or infection, unspecified (principal); K86.1 Other chronic pancreatitis; D68.9 Coagulation defect, unspecified; K72.90 Hepatic failure, unspecified without coma; D61.818 Other pancytopenia; K76.6 Portal hypertension; Z53.29 Procedure and treatment not carried out because of patient's decision for other reasons; K21.9 Gastro-esophageal reflux disease without esophagitis; I10 Essential (primary) hypertension; E07.9 Disorder of thyroid, unspecified; K70.30 Alcoholic cirrhosis of liver without ascites; D69.6 Thrombocytopenia, unspecified; M48.00 Spinal stenosis, site unspecified; G89.29 Other chronic pain; M54.9 Dorsalgia, unspecified; G62.9 Polyneuropathy, unspecified; G61.0 Guillain-Barre syndrome; Z98.890 Other specified postprocedural states; F32.9 Major depressive disorder, single episode, unspecified; F17.200 Nicotine dependence, unspecified, uncomplicated; Z81.1 Family history of alcohol abuse and dependence; Z79.890 Hormone replacement therapy; Z79.891 Long term (current) use of opiate analgesic; Z79.899 Other long term (current) drug therapy
CPT/HCPCS: 96376 ×3; 96361; 96374; 99285; 36415; 80053 ×2; 83690 ×2; 83735; 85025; 85027; 85610 ×2; 85730; 81003; 74018; G0378 ×2; G0480; J2270 ×4; 80320

== ENCOUNTER 2019-11-29 11:52 | Day surgery (SDC) | payer MEDICARE ==
[2019-11-29 12:48] VITALS: TEMP 98.7
[2019-11-29 13:12] LABS: INR 1.4 (<1.2); Prothrombin Time 13.8 sec (9.0-12.0)
[2019-11-29 13:13] LABS: Mean Platelet Volume 8.8
[2019-11-29 13:14] LABS: African American GFR (CKD) >90 (>60 ml/min/1.73 sqM); Non-African American GFR(CKD) 86 (>60 ml/min/1.73 sqM)
[2019-11-29] MEDS: ALBUMIN HUMAN 25% 50 ML in EMPTY BAG 1 BAG IVPB SCH ×4 (13:14→15:06)
[2019-11-29 13:15] LABS: Platelet Count 40 k/uL (150-450)
[2019-11-29 13:46] VITALS: RESP 16
[2019-11-29 14:22] VITALS: BP 100/66; PULSE 78
--- NOTE | 2019-11-29 15:40 | US ---
EXAMINATION TYPE: US paracentesis abd w/image DATE OF EXAM: 11/29/2019 COMPARISON: NONE HISTORY: Ascites. PROCEDURE: Maximal barrier technique was utilized. The skin overlying a suitable pocket of fluid was localized with ultrasound and the overlying skin was prepped and draped. Ultrasound was utilized with sterile technique. Lidocaine was used for local anesthesia and a skin gia made with a scalpel. Catheter was advanced under direct ultrasound guidance into a suitable pocket of fluid and approximately 6.9 liter s of serous fluid were removed. Catheter was withdrawn and hemostasis achieved. There is no immedia te complication; the patient is discharged in stable condition. IMPRESSION: STATUS POST ULTRASOUND GUIDED PARACENTESIS FOR PALLIATION OF ASCITES. THIS PROCEDURE WA S PERFORMED BY THE UNDERSIGNED.
== END 2019-11-29 15:00 | disposition home or self-care (01) ==
LOC: RADPROMAIN 11:52
PROVIDERS: ATTEND Internal Medicine Gastroenterology
DX: R18.8 Other ascites (principal)
CPT/HCPCS: 82565; 85049; 85610; 49083; P9047

== ENCOUNTER 2019-12-16 12:28 | Day surgery (SDC) | payer MEDICARE ==
[2019-12-16 13:09] LABS: Mean Platelet Volume 9.8
[2019-12-16 13:10] LABS: INR 1.3 (<1.2); Prothrombin Time 13.2 sec (9.0-12.0)
[2019-12-16 13:11] LABS: African American GFR (CKD) >90 (>60 ml/min/1.73 sqM); Non-African American GFR(CKD) 81 (>60 ml/min/1.73 sqM); Platelet Count 41 k/uL (150-450)
[2019-12-16 13:32] VITALS: RESP 18
[2019-12-16 14:41] VITALS: TEMP 98.3
[2019-12-16] MEDS: ALBUMIN HUMAN 25% 50 ML in EMPTY BAG 1 BAG IVPB SCH ×3 (15:00→15:44)
[2019-12-16 16:17] VITALS: BP 117/70; PULSE 74
--- NOTE | 2019-12-16 17:44 | US ---
Ultrasound-guided paracentesis. DATE OF EXAM: 12/16/2019 CLINICAL HISTORY: Ascites The procedure was discussed with the patient. The risks, complications, benefits, and alternatives we re discussed and any questions were answered. Informed consent was obtained. The patient was placed s upine on the ultrasound table and prepped and draped in the usual sterile fashion. All elements of maximal barrier technique were utilized. Under ultrasound guidance, access into the right lower quadrant was obtained, via the paracentesis catheter system and direct ultrasound guidanc e. Approximately 6.5 liters of straw-colored fluid was removed. The patient was stable throughout the pr ocedure and remained stable upon discharge from Department of Radiology. IMPRESSION: Successful paracentesis under ultrasound guidance.
== END 2019-12-16 16:00 | disposition home or self-care (01) ==
LOC: RADPROMAIN 12:28
PROVIDERS: ATTEND Internal Medicine Gastroenterology
DX: R18.8 Other ascites (principal); D69.6 Thrombocytopenia, unspecified
CPT/HCPCS: 82565; 85049; 85610; 36415; 49083; P9035; P9047

== ENCOUNTER 2020-01-02 09:06 | Day surgery (SDC) | payer MEDICARE ==
[2020-01-02 09:43] LABS: Mean Platelet Volume 8.8
[2020-01-02 09:45] LABS: INR 1.3 (<1.2)
[2020-01-02 09:51] LABS: Platelet Count 38 k/uL (150-450)
[2020-01-02 10:49] VITALS: RESP 16
[2020-01-02] MEDS: ALBUMIN HUMAN 25% 50 ML in EMPTY BAG 1 BAG IVPB SCH ×2 (11:25→11:38)
[2020-01-02 11:54] VITALS: PULSE 88; TEMP 98.3
[2020-01-02 12:17] VITALS: BP 116/81
[2020-01-02] MEDS ORDERED: LIDOCAINE 1% INJ 10MG/ML (20 ML MDV) ONE (12:24)
[2020-01-02] MEDS ORDERED: VERAPAMIL 2.5 MG/ML 2 ML AMP ONE (12:24)
[2020-01-02] MEDS ORDERED: HEPARIN SODIUM 1,000 UN/ML (10ML VL) ONE (12:24)
--- NOTE | 2020-01-02 12:30 | US ---
Ultrasound-guided paracentesis. DATE OF EXAM: 01/02/2020 CLINICAL HISTORY: Ascites The procedure was discussed with the patient. The risks, complications, benefits, and alternatives we re discussed and any questions were answered. Informed consent was obtained. The patient was placed s upine on the ultrasound table and prepped and draped in the usual sterile fashion. All elements of maximal barrier technique were utilized. Under ultrasound guidance, access into the right lower quadrant was obtained, via the paracentesis catheter system and direct ultrasound guidanc e. Approximately 5.5 liters of straw-colored fluid was removed. The patient was stable throughout the pr ocedure and remained stable upon discharge from Department of Radiology. IMPRESSION: Successful paracentesis under ultrasound guidance.
== END 2020-01-02 12:10 | disposition home or self-care (01) ==
LOC: RADPROMAIN 09:06
PROVIDERS: ATTEND Internal Medicine Gastroenterology
DX: R18.8 Other ascites (principal)
CPT/HCPCS: 82565; 85049; 85610; 49083; P9073; P9047

== ENCOUNTER 2020-01-17 12:05 | Day surgery (SDC) | payer MEDICARE ==
[2020-01-17 12:32] LABS: Mean Platelet Volume 9.4
[2020-01-17 12:37] VITALS: RESP 16
[2020-01-17 12:37] LABS: Platelet Count 47 k/uL (150-450)
[2020-01-17 12:42] LABS: INR 1.3 (<1.2); Prothrombin Time 12.7 sec (9.0-12.0)
[2020-01-17] MEDS: ALBUMIN HUMAN 25% 50 ML in EMPTY BAG 1 BAG IVPB SCH ×3 (14:04→14:36)
[2020-01-17 15:08] VITALS: TEMP 98.2
[2020-01-17 15:16] VITALS: BP 112/73; PULSE 93
--- NOTE | 2020-01-19 08:46 | US ---
Ultrasound-guided paracentesis. DATE OF EXAM: 01/17/2020 CLINICAL HISTORY: Ascites The procedure was discussed with the patient. The risks, complications, benefits, and alternatives we re discussed and any questions were answered. Informed consent was obtained. The patient was placed s upine on the ultrasound table and prepped and draped in the usual sterile fashion. All elements of maximal barrier technique were utilized. Under ultrasound guidance, access into the right lower quadrant was obtained, via the paracentesis catheter system and direct ultrasound guidanc e. Approximately 7.9 liters of straw-colored fluid was removed. The patient was stable throughout the pr ocedure and remained stable upon discharge from Department of Radiology. Patient received preprocedur al platelets due to low platelet count. IMPRESSION: Successful paracentesis under ultrasound guidance.
== END 2020-01-17 15:16 | disposition home or self-care (01) ==
LOC: RADPROMAIN 12:05
PROVIDERS: ATTEND Internal Medicine Gastroenterology
DX: R18.8 Other ascites (principal)
CPT/HCPCS: 82565; 85049; 85610; 36415; 49083; P9035; P9047

== ENCOUNTER 2020-02-01 12:09 | Day surgery (SDC) | payer MEDICARE ==
[2020-02-01 12:41] VITALS: RESP 16
[2020-02-01] MEDS: ALBUMIN HUMAN 25% 50 ML in EMPTY BAG 1 BAG IVPB SCH ×4 (12:55→15:27)
[2020-02-01 13:01] LABS: Mean Platelet Volume 8.6
[2020-02-01 13:02] LABS: Platelet Count 38 k/uL (150-450)
[2020-02-01 13:17] LABS: INR 1.2 (<1.2); Prothrombin Time 12.4 sec (9.0-12.0)
[2020-02-01 14:49] VITALS: TEMP 98.1
--- NOTE | 2020-02-01 15:39 | US ---
Ultrasound-guided paracentesis. DATE OF EXAM: 02/01/2020 CLINICAL HISTORY: Ascites The procedure was discussed with the patient. The risks, complications, benefits, and alternatives we re discussed and any questions were answered. Informed consent was obtained. The patient was placed s upine on the ultrasound table and prepped and draped in the usual sterile fashion. All elements of maximal barrier technique were utilized. Under ultrasound guidance, access into the right lower quadrant was obtained, via the paracentesis catheter system and direct ultrasound guidanc e. Approximately 5.1 liters of straw-colored fluid was removed. The patient was stable throughout the pr ocedure and remained stable upon discharge from Department of Radiology. IMPRESSION: Successful paracentesis under ultrasound guidance.
[2020-02-01 15:59] VITALS: BP 106/67; PULSE 89
== END 2020-02-01 16:00 | disposition home or self-care (01) ==
LOC: RADPROMAIN 12:09
PROVIDERS: ATTEND Physician Assistant
DX: R18.8 Other ascites (principal)
CPT/HCPCS: 82565; 85049; 85610; 49083; P9035; P9047

== ENCOUNTER 2020-02-15 12:10 | Day surgery (SDC) | payer MEDICARE ==
[2020-02-15 12:54] VITALS: RESP 16
[2020-02-15 12:59] LABS: African American GFR (CKD) >90 (>60 ml/min/1.73 sqM); Non-African American GFR(CKD) 81 (>60 ml/min/1.73 sqM)
[2020-02-15 13:02] LABS: INR 1.3 (<1.2); Prothrombin Time 12.7 sec (9.0-12.0)
[2020-02-15 13:03] LABS: Platelet Count 48 k/uL (150-450)
[2020-02-15 14:51] VITALS: TEMP 98.2
[2020-02-15 14:52] VITALS: BP 103/65; PULSE 74
[2020-02-15] MEDS: ALBUMIN HUMAN 25% 50 ML in EMPTY BAG 1 BAG IVPB SCH ×2 (14:53→14:54)
--- NOTE | 2020-02-15 15:46 | US ---
Ultrasound-guided paracentesis. DATE OF EXAM: 02/15/2020 CLINICAL HISTORY: Ascites The procedure was discussed with the patient. The risks, complications, benefits, and alternatives we re discussed and any questions were answered. Informed consent was obtained. The patient was placed s upine on the ultrasound table and prepped and draped in the usual sterile fashion. All elements of maximal barrier technique were utilized. Under ultrasound guidance, access into the right lower quadrant was obtained, via the paracentesis catheter system and direct ultrasound guidanc e. Approximately 3.5 liters of straw-colored fluid was removed. The patient was stable throughout the pr ocedure and remained stable upon discharge from Department of Radiology. IMPRESSION: Successful paracentesis under ultrasound guidance.
== END 2020-02-15 14:56 | disposition home or self-care (01) ==
LOC: RADPROMAIN 12:10
PROVIDERS: ATTEND Internal Medicine Gastroenterology
DX: R18.8 Other ascites (principal)
CPT/HCPCS: 82565; 85049; 85610; 49083; P9035

== ENCOUNTER 2020-02-29 12:02 | Day surgery (SDC) | payer MEDICARE ==
[2020-02-29 12:52] LABS: Mean Platelet Volume 10.9
[2020-02-29 12:57] LABS: Platelet Count 34 k/uL (150-450)
[2020-02-29 13:01] LABS: African American GFR (CKD) >90 (>60 ml/min/1.73 sqM); Non-African American GFR(CKD) 87 (>60 ml/min/1.73 sqM)
[2020-02-29 13:04] LABS: INR 1.3 (<1.2); Prothrombin Time 12.9 sec (9.0-12.0)
[2020-02-29 13:05] VITALS: RESP 16; TEMP 98.1
[2020-02-29 14:35] VITALS: BP 104/65; PULSE 84
--- NOTE | 2020-02-29 15:05 | US ---
EXAMINATION TYPE: US paracentesis abd w/image DATE OF EXAM: 02/29/2020 COMPARISON: NONE HISTORY: Ascites. PROCEDURE: Maximal barrier technique was utilized. The skin overlying a suitable pocket of fluid was localized with ultrasound and the overlying skin was prepped and draped. Ultrasound was utilized with sterile technique. Lidocaine was used for local anesthesia and a skin gia made with a scalpel. Catheter was advanced under direct ultrasound guidance into a suitable pocket of fluid and approximately 3.9 liter s of serous fluid were removed. Catheter was withdrawn and hemostasis achieved. There is no immedia te complication; the patient is discharged in stable condition. IMPRESSION: STATUS POST ULTRASOUND GUIDED PARACENTESIS FOR PALLIATION OF ASCITES. THIS PROCEDURE WA S PERFORMED BY THE UNDERSIGNED.
== END 2020-02-29 12:38 | disposition home or self-care (01) ==
LOC: RADPROMAIN 12:02
PROVIDERS: ATTEND Internal Medicine Gastroenterology
DX: R18.8 Other ascites (principal)
CPT/HCPCS: 36415; 49083; 82565; 85049; 85610

== ENCOUNTER 2020-03-14 12:25 | Day surgery (SDC) | payer MEDICARE ==
[2020-03-14 12:58] LABS: Mean Platelet Volume 10.4
[2020-03-14 13:02] LABS: Platelet Count 28 k/uL (150-450)
[2020-03-14 13:07] VITALS: BP 123/72; PULSE 105; RESP 18; TEMP 99.5
[2020-03-14 13:09] LABS: INR 1.3 (<1.2); Prothrombin Time 12.9 sec (9.0-12.0)
--- NOTE | 2020-03-14 13:35 | US ---
Ultrasound-guided paracentesis. DATE OF EXAM: 03/14/2020 CLINICAL HISTORY: Ascites Preliminary imaging demonstrated only a small amount of peritoneal fluid. The patient wished to defer the procedure. IMPRESSION: Discontinued paracentesis.
== END 2020-03-14 13:30 | disposition home or self-care (01) ==
LOC: RADPROMAIN 12:25
PROVIDERS: ATTEND Internal Medicine Gastroenterology
DX: R18.8 Other ascites (principal); D69.6 Thrombocytopenia, unspecified
CPT/HCPCS: 36415; 76705; 82565; 85049; 85610

== ENCOUNTER 2020-03-21 09:11 | Day surgery (SDC) | payer MEDICARE ==
[2020-03-21 09:50] LABS: Mean Platelet Volume 9.7
[2020-03-21 09:56] LABS: Platelet Count 45 k/uL (150-450)
[2020-03-21 09:57] LABS: INR 1.3 (<1.2); Prothrombin Time 13.3 sec (9.0-12.0)
[2020-03-21 10:39] VITALS: RESP 18; TEMP 98.6
[2020-03-21] MEDS: ALBUMIN HUMAN 25% 50 ML in EMPTY BAG 1 BAG IVPB SCH ×3 (11:10→12:00)
[2020-03-21 12:13] VITALS: BP 100/68; PULSE 96
--- NOTE | 2020-03-21 15:22 | US ---
EXAMINATION TYPE: US paracentesis abd w/image DATE OF EXAM: 03/21/2020 COMPARISON: NONE HISTORY: Ascites. PROCEDURE: Maximal barrier technique was utilized. The skin overlying a suitable pocket of fluid was localized with ultrasound and the overlying skin was prepped and draped. Ultrasound was utilized with sterile technique. Lidocaine was used for local anesthesia and a skin gia made with a scalpel. Catheter was advanced under direct ultrasound guidance into a suitable pocket of fluid and approximately 5.1 liter s of serous fluid were removed. Catheter was withdrawn and hemostasis achieved. There is no immedia te complication; the patient is discharged in stable condition. IMPRESSION: STATUS POST ULTRASOUND GUIDED PARACENTESIS FOR PALLIATION OF ASCITES. THIS PROCEDURE WA S PERFORMED BY THE UNDERSIGNED.
== END 2020-03-21 12:00 | disposition home or self-care (01) ==
LOC: RADPROMAIN 09:11
PROVIDERS: ATTEND Physician Assistant
DX: R18.8 Other ascites (principal); D69.6 Thrombocytopenia, unspecified
CPT/HCPCS: 82565; 85049; 85610; 36415; 49083; P9047

== ENCOUNTER 2020-04-11 12:30 | Day surgery (SDC) | payer MEDICARE ==
[2020-04-11 13:10] LABS: Mean Platelet Volume 8.6
[2020-04-11 13:11] VITALS: RESP 16
[2020-04-11 13:15] LABS: INR 1.2 (<1.2); Prothrombin Time 12.3 sec (9.0-12.0)
[2020-04-11 13:16] LABS: Platelet Count 46 k/uL (150-450)
[2020-04-11 15:02] VITALS: TEMP 98
[2020-04-11] MEDS: ALBUMIN HUMAN 25% 50 ML in EMPTY BAG 1 BAG IVPB SCH ×3 (15:02→15:32)
[2020-04-11 15:57] VITALS: BP 101/67; PULSE 73
--- NOTE | 2020-04-12 08:51 | US ---
Ultrasound-guided paracentesis. DATE OF EXAM: 04/11/2020 CLINICAL HISTORY: Ascites The procedure was discussed with the patient. The risks, complications, benefits, and alternatives we re discussed and any questions were answered. Informed consent was obtained. The patient was placed s upine on the ultrasound table and prepped and draped in the usual sterile fashion. All elements of maximal barrier technique were utilized. Under ultrasound guidance, access into the right lower quadrant was obtained, via the paracentesis catheter system and direct ultrasound guidanc e. Approximately 7.9 liters of straw-colored fluid was removed. The patient was stable throughout the pr ocedure and remained stable upon discharge from Department of Radiology. IMPRESSION: Successful paracentesis under ultrasound guidance.
== END 2020-04-11 16:07 | disposition home or self-care (01) ==
LOC: RADPROMAIN 12:30
PROVIDERS: ATTEND Internal Medicine Gastroenterology
DX: R18.8 Other ascites (principal)
CPT/HCPCS: 82565; 82947; 85049; 85610; 36415; 49083; P9035; P9047

== ENCOUNTER 2020-04-27 09:10 | Day surgery (SDC) | payer MEDICARE ==
[2020-04-27 09:46] LABS: Mean Platelet Volume 9.9
[2020-04-27 09:49] LABS: Platelet Count 38 k/uL (150-450)
[2020-04-27] MEDS: ALBUMIN HUMAN 25% 50 ML in EMPTY BAG 1 BAG IVPB SCH ×4 (09:51→10:52)
[2020-04-27 09:57] LABS: INR 1.1 (<1.2); Prothrombin Time 11.8 sec (9.0-12.0)
[2020-04-27 10:47] VITALS: TEMP 98.6
[2020-04-27 11:09] VITALS: RESP 16
[2020-04-27 12:15] VITALS: BP 97/62; PULSE 76
--- NOTE | 2020-04-27 12:40 | US ---
EXAMINATION TYPE: US paracentesis abd w/image DATE OF EXAM: 04/27/2020 COMPARISON: NONE HISTORY: Ascites. PROCEDURE: Maximal barrier technique was utilized. The skin overlying a suitable pocket of fluid was localized with ultrasound and the overlying skin was prepped and draped. Ultrasound was utilized with sterile technique. Lidocaine was used for local anesthesia and a skin gia made with a scalpel. Catheter was advanced under direct ultrasound guidance into a suitable pocket of fluid and approximately 7.4 liter s of serous fluid were removed. Catheter was withdrawn and hemostasis achieved. There is no immedia te complication; the patient is discharged in stable condition. IMPRESSION: STATUS POST ULTRASOUND GUIDED PARACENTESIS FOR PALLIATION OF ASCITES. THIS PROCEDURE WA S PERFORMED BY THE UNDERSIGNED.
== END 2020-04-27 12:15 | disposition home or self-care (01) ==
LOC: RADPROMAIN 09:10
PROVIDERS: ATTEND Physician Assistant
DX: R18.8 Other ascites (principal)
CPT/HCPCS: 82565; 82947; 85049; 85610; 36415; 49083; P9047

== ENCOUNTER 2020-05-14 09:01 | Day surgery (SDC) | payer MEDICARE ==
[2020-05-14 09:12] VITALS: RESP 16
[2020-05-14] MEDS: ALBUMIN HUMAN 25% 50 ML in EMPTY BAG 1 BAG IVPB SCH ×3 (09:40→11:27)
[2020-05-14 09:43] LABS: Mean Platelet Volume 8.7
[2020-05-14 09:52] LABS: Platelet Count 45 k/uL (150-450)
[2020-05-14 09:54] LABS: INR 1.2 (<1.2); Prothrombin Time 12.3 sec (9.0-12.0)
[2020-05-14 11:03] VITALS: TEMP 97.1
[2020-05-14 11:49] VITALS: BP 93/67; PULSE 81
--- NOTE | 2020-05-14 15:49 | US ---
Ultrasound-guided paracentesis. DATE OF EXAM: 05/14/2020 CLINICAL HISTORY: Ascites The procedure was discussed with the patient. The risks, complications, benefits, and alternatives we re discussed and any questions were answered. Informed consent was obtained. The patient was placed s upine on the ultrasound table and prepped and draped in the usual sterile fashion. All elements of maximal barrier technique were utilized. Under ultrasound guidance, access into the right lower quadrant was obtained, via the paracentesis catheter system and direct ultrasound guidanc e. Approximately 5.1 liters of straw-colored fluid was removed. The patient was stable throughout the pr ocedure and remained stable upon discharge from Department of Radiology. IMPRESSION: Successful paracentesis under ultrasound guidance.
== END 2020-05-14 11:55 | disposition home or self-care (01) ==
LOC: RADPROMAIN 09:01
PROVIDERS: ATTEND Internal Medicine Gastroenterology
DX: R18.8 Other ascites (principal)
CPT/HCPCS: 82565; 82947; 85049; 85610; 36415; 49083; P9073; P9047

== ENCOUNTER 2020-05-28 08:46 | Day surgery (SDC) | payer MEDICARE ==
[2020-05-28 09:30] LABS: Mean Platelet Volume 8.6
[2020-05-28 09:31] LABS: Platelet Count 48 k/uL (150-450)
[2020-05-28 09:36] LABS: INR 1.2 (<1.2); Prothrombin Time 12.1 sec (9.0-12.0)
[2020-05-28 09:39] LABS: African American GFR (CKD) >90 (>60 ml/min/1.73 sqM); Glucose 160 mg/dL (74-99); Non-African American GFR(CKD) 80 (>60 ml/min/1.73 sqM)
[2020-05-28] MEDS: ALBUMIN HUMAN 25% 50 ML in EMPTY BAG 1 BAG IVPB SCH ×4 (09:47→11:34)
[2020-05-28 10:42] VITALS: RESP 18; TEMP 97.8
[2020-05-28 12:06] VITALS: BP 101/64; PULSE 78
--- NOTE | 2020-05-28 13:34 | US ---
EXAMINATION TYPE: US paracentesis abd w/image DATE OF EXAM: 05/28/2020 COMPARISON: NONE HISTORY: Ascites. PROCEDURE: Maximal barrier technique was utilized. The skin overlying a suitable pocket of fluid was localized with ultrasound and the overlying skin was prepped and draped. Ultrasound was utilized with sterile technique. Lidocaine was used for local anesthesia and a skin gia made with a scalpel. Catheter was advanced under direct ultrasound guidance into a suitable pocket of fluid and approximately 7.6 liter s of serous fluid were removed. Catheter was withdrawn and hemostasis achieved. There is no immedia te complication; the patient is discharged in stable condition. IMPRESSION: STATUS POST ULTRASOUND GUIDED PARACENTESIS FOR PALLIATION OF ASCITES. THIS PROCEDURE WA S PERFORMED BY THE UNDERSIGNED.
== END 2020-05-28 12:00 | disposition home or self-care (01) ==
LOC: RADPROMAIN 08:46
PROVIDERS: ATTEND Internal Medicine Gastroenterology
DX: R18.8 Other ascites (principal)
CPT/HCPCS: 82565; 82947; 85049; 85610; 36415; 49083; P9047

== ENCOUNTER 2020-05-28 19:23 | Emergency (ER) | payer MEDICARE ==
[2020-05-28 21:38] VITALS: RESP 18; TEMP 99
[2020-05-28] MEDS ORDERED: oxyCODONE-APAP 10-325MG 1 EACH TAB PO STA (22:13)
--- NOTE | 2020-05-28 22:13 | ED ---
Medical Decision Making - Medical Decision Making Medical screening exam: Patient is a 44-year-old male past medical history of liver failure. He had placement of pancreatic duct stents done in April at the [facility]. CT a paracentesis done today for palliation of ascites. Patient states that there is paracentesis he had abdominal pain. Patient has history of chronic abdominal pain. Vital signs upon arrival shows findings within acceptable limits, rest of vital signs within acceptable limits. He is well- appearing but has palpatory tenderness to his epigastric and right upper quadrant of the abdomen. Abdominal labs ordered. Patient placed back into the waiting room until a bed in the ER becomes available. - Lab Data Result diagrams: 05/29/20 00:00 05/29/20 00:00 Disposition Clinical Impression: Alcoholic cirrhosis of liver, Abdominal pain Disposition: HOME SELF-CARE Condition: Good Instructions (If sedation given, give patient instructions): Abdominal Pain (ED) Is patient prescribed a controlled substance at d/c from ED?: No Referrals: Wilton Linn MD [Primary Care Provider] - 1-2 days
--- NOTE | 2020-05-28 23:59 | XR ---
EXAMINATION TYPE: XR KUB DATE OF EXAM: 05/28/2020 COMPARISON: 10/14/2019 HISTORY: Abdominal pain TECHNIQUE: 2 views upright FINDINGS: There is no sign of intestinal obstruction or pneumoperitoneum. Fecal pattern is normal. Th ere is biliary stent noted. Lung bases are clear. There are no pathologic calcifications. IMPRESSION: Nonacute abdomen. No adverse change.
[2020-05-29] MEDS ORDERED: HYDROmorphone 1 MG/ML 1 ML SYRINGE IVP STA ×2 (00:22→01:11)
--- NOTE | 2020-05-29 00:35 | ED ---
SOB HPI - General Chief Complaint: Shortness of Breath Stated Complaint: ABD pain Time Seen by Provider: 05/28/20 23:02 Source: patient, RN notes reviewed, old records reviewed Mode of arrival: wheelchair Limitations: no limitations - History of Present Illness Initial Comments: This is a 44-year-old male DF for evaluation patient Dese for evaluation regards to abdominal pain severe abdominal pain, some shortness of breath. Patient is significantly more fluid taken off today and now having significant dizziness. Patient has liver failure with significant ascites. Otherwise patient has no recent travel history or sick contacts. Patient believes is symptoms are related to recent paracentesis MD Complaint: shortness of breath, cough -: days(s) Severity: moderate Severity scale (1-10): 4 Quality: dull, aching Consistency: constant Improves With: nothing Worsens With: nothing Known History Of: other (none) Context: other (Patient recent procedure, paracentesis therapeutic 8 L) Associated Symptoms: nausea/vomiting, abdominal pain Treatments Prior to Arrival: none - Related Data Home Medications Medication Instructions Recorded Confirmed Sucralfate [Carafate] 1 gm PO ACHS PRN 09/22/18 05/28/20 Lactulose [Constulose] 20 gm PO TID PRN 03/11/19 05/28/20 Levothyroxine Sodium [Synthroid] 25 mcg PO DAILY 06/27/19 05/28/20 Propranolol HCl [Inderal Xl] 80 mg PO DAILY 06/27/19 05/28/20 Spironolactone 100 mg PO BID@0900,1600 07/04/19 05/28/20 Furosemide [Lasix] 40 mg PO BID@0900,1600 07/11/19 05/28/20 Lipase/Protease/Amylase [Zenpep Dr 10,000 unit PO AC-TID 10/02/19 05/28/20 5,000 Unit Capsule] Midodrine HCl [ProAmatine] 5 mg PO TID 10/12/19 05/28/20 Pantoprazole Sodium [Protonix] 20 mg PO BID 10/12/19 05/28/20 methocarbamoL [Robaxin] 1,000 mg PO DAILY PRN 11/29/19 05/28/20 Magnesium Citrate 125 mg PO DAILY PRN 03/21/20 05/28/20 Vitamin B Complex 1 each PO DAILY 03/21/20 05/28/20 Insulin Glargine [Lantus] 24 unit SQ DAILY 05/28/20 05/28/20 Insulin Lispro [humaLOG Kwikpen] 0 units SQ DAILY PRN 05/28/20 05/28/20 Allergies Allergy/AdvReac Type Severity Reaction Status Date / Time No Known Allergies Allergy Verified 05/28/20 21:38 Review of Systems ROS Statement: Those systems with pertinent positive or pertinent negative responses have been documented in the HPI. ROS Other: All systems not noted in ROS Statement are negative. Past Medical History Past Medical History: Diabetes Mellitus, GERD/Reflux, GI Bleed, Hypertension, Liver Disease, Thyroid Disorder Additional Past Medical History / Comment(s): Liver cirrhosis stage 4 portal htn, ETOH abuse, esophageal varicies, upper GI bleed, chronic thrombocytopenia, coagulopathy, pancytopenia, ascities, spinal stenosis: back/leg and feet pain, DDD, chronic back pain, neuropathy bilateral legs/feet, falls, bronchitis, 2010 Guillium [place], chronic pancreatitis, ascites, newly diagnosed diabetic [id number], pulmonary hypertension, thrombocytopenia, patient no longer on transplant list related to high pulmonary hypertension. History of Any Multi-Drug Resistant Organisms: None Reported Past Surgical History: Appendectomy, Heart Catheterization, Joint Replacement Additional Past Surgical History / Comment(s): EGDs, multiple large volume paracentesis, back injections, R thumb reattachment, circumcism, right heart catheterization Past Anesthesia/Blood Transfusion Reactions: No Reported Reaction Additional Past Anesthesia/Blood Transfusion Reaction / Comment(s): Pt has received blood product without reaction. Past Psychological History: Depression Smoking Status: Current some day smoker Past Alcohol Use History: None Reported Past Drug Use History: Marijuana - Past Family History Father Family Medical History: Unable to Obtain Additional Family Medical History / Comment(s): Pt does not know his father's medical hx. Mother Family Medical History: No Reported History Additional Family Medical History / Comment(s): Mother is healthy. Brother(s) Additional Family Medical History / Comment(s): Patient has 3 brothers and one suffers from alcohol abuse. 2 brothers have no major medical problems. Patient does not have any sisters. Patient is one daughter 12 years old with no major medical problems. General Exam Limitations: no limitations General appearance: alert, in no apparent distress Head exam: Present: atraumatic, normocephalic, normal inspection Eye exam: Present: normal appearance, PERRL, EOMI. Absent: scleral icterus, conjunctival injection, periorbital swelling ENT exam: Present: normal exam, mucous membranes moist Neck exam: Present: normal inspection. Absent: tenderness, meningismus, lymphadenopathy Respiratory exam: Present: normal lung sounds bilaterally. Absent: respiratory distress, wheezes, rales, rhonchi, stridor Cardiovascular Exam: Present: regular rate, normal rhythm, normal heart sounds. Absent: systolic murmur, diastolic murmur, rubs, gallop, clicks GI/Abdominal exam: Present: soft, normal bowel sounds. Absent: distended, tenderness, guarding, rebound, rigid Extremities exam: Present: normal inspection, full ROM, normal capillary refill. Absent: tenderness, pedal edema, joint swelling, calf tenderness Back exam: Present: normal inspection Neurological exam: Present: alert, oriented X3, CN II-XII intact Psychiatric exam: Present: normal affect, normal mood Skin exam: Present: warm, dry, intact, normal color. Absent: rash Course Vital Signs 05/28/20 05/29/20 05/29/20 21:33 00:20 00:42 Temperature 99 F Pulse Rate 75 93 Respiratory 18 18 18 Rate Blood Pressure 102/71 93/65 O2 Sat by Pulse 100 96 Oximetry 05/29/20 01:57 Temperature Pulse Rate 75 Respiratory 18 Rate Blood Pressure 101/67 O2 Sat by Pulse 97 Oximetry - Reevaluation(s) Reevaluation #1: Medical record is reviewed Patient symptoms are significantly improved and remained improved here in the emergency department Patient informed of results and questions answered Medical Decision Making - Medical Decision Making 44 male DF for evaluation therapy. Fever. Patient received pain control can be discharged home - Lab Data Result diagrams: 05/29/20 00:00 05/29/20 00:00 Lab Results 05/29/20 05/29/20 05/29/20 Range/Units 00:00 00:00 00:00 WBC 4.5 (3.8-10.6) k/uL RBC 4.28 L (4.30-5.90) m/uL Hgb 12.0 L (13.0-17.5) gm/dL Hct 36.3 L (39.0-53.0) % MCV 84.8 (80.0-100.0) fL MCH 28.1 (25.0-35.0) pg MCHC 33.1 (31.0-37.0) g/dL RDW 16.5 H (11.5-15.5) % Plt Count 36 L (150-450) k/uL MPV 8.1 Neutrophils % 84 % Lymphocytes % 8 % Monocytes % 6 % Eosinophils % 1 % Basophils % 0 % Neutrophils # 3.8 (1.3-7.7) k/uL Lymphocytes # 0.4 L (1.0-4.8) k/uL Monocytes # 0.3 (0-1.0) k/uL Eosinophils # 0.0 (0-0.7) k/uL Basophils # 0.0 (0-0.2) k/uL Anisocytosis Slight PT (9.0-12.0) sec INR (<1.2) APTT (22.0-30.0) sec Sodium 134 L (137-145) mmol/L Potassium 4.5 (3.5-5.1) mmol/L Chloride 106 (98-107) mmol/L Carbon Dioxide 19 L (22-30) mmol/L Anion Gap 9 mmol/L BUN 29 H (9-20) mg/dL Creatinine 1.03 (0.66-1.25) mg/dL Est GFR (CKD-EPI)AfAm >90 (>60 ml/min/1.73 sqM) Est GFR (CKD-EPI)NonAf 88 (>60 ml/min/1.73 sqM) Glucose 150 H (74-99) mg/dL Plasma Lactic Acid Reji 1.4 (0.7-2.0) mmol/L Calcium 9.2 (8.4-10.2) mg/dL Phosphorus 3.4 (2.5-4.5) mg/dL Magnesium 1.6 (1.6-2.3) mg/dL Total Bilirubin 2.0 H (0.2-1.3) mg/dL AST 23 (17-59) U/L ALT 9 (4-49) U/L Alkaline Phosphatase 78 (38-126) U/L Ammonia <9 (<30) umol/L Total Protein 7.1 (6.3-8.2) g/dL Albumin 4.0 (3.5-5.0) g/dL Lipase 1896 H (23-300) U/L 05/29/20 Range/Units 00:00 WBC (3.8-10.6) k/uL RBC (4.30-5.90) m/uL Hgb (13.0-17.5) gm/dL Hct (39.0-53.0) % MCV (80.0-100.0) fL MCH (25.0-35.0) pg MCHC (31.0-37.0) g/dL RDW (11.5-15.5) % Plt Count (150-450) k/uL MPV Neutrophils % % Lymphocytes % % Monocytes % % Eosinophils % % Basophils % % Neutrophils # (1.3-7.7) k/uL Lymphocytes # (1.0-4.8) k/uL Monocytes # (0-1.0) k/uL Eosinophils # (0-0.7) k/uL Basophils # (0-0.2) k/uL Anisocytosis PT 12.7 H (9.0-12.0) sec INR 1.2 H (<1.2) APTT 24.4 (22.0-30.0) sec Sodium (137-145) mmol/L Potassium (3.5-5.1) mmol/L Chloride (98-107) mmol/L Carbon Dioxide (22-30) mmol/L Anion Gap mmol/L BUN (9-20) mg/dL Creatinine (0.66-1.25) mg/dL Est GFR (CKD-EPI)AfAm (>60 ml/min/1.73 sqM) Est GFR (CKD-EPI)NonAf (>60 ml/min/1.73 sqM) Glucose (74-99) mg/dL Plasma Lactic Acid Reji (0.7-2.0) mmol/L Calcium (8.4-10.2) mg/dL Phosphorus (2.5-4.5) mg/dL Magnesium (1.6-2.3) mg/dL Total Bilirubin (0.2-1.3) mg/dL AST (17-59) U/L ALT (4-49) U/L Alkaline Phosphatase (38-126) U/L Ammonia (<30) umol/L Total Protein (6.3-8.2) g/dL Albumin (3.5-5.0) g/dL Lipase (23-300) U/L - EKG Data -: EKG Interpreted by Me (EKG shows sinus rhythm 68 VA 148 QRS 84 QTc 501) - Radiology Data Radiology results: report reviewed (x-ray KUB negative for acute disease), image reviewed Disposition Clinical Impression: Alcoholic cirrhosis of liver, Abdominal pain Disposition: HOME SELF-CARE Condition: Good Instructions (If sedation given, give patient instructions): Abdominal Pain (ED) Is patient prescribed a controlled substance at d/c from ED?: No Referrals: Wilton Linn MD [Primary Care Provider] - 1-2 days
[2020-05-29 00:43] LABS: Anisocytosis Slight; Basophils % (A) 0 %; Eosinophils % (A) 1 %; HCT 36.3 % (39.0-53.0); Lymphocytes # (A) 0.4 k/uL (1.0-4.8); Lymphocytes % (A) 8 %; MCH 28.1 pg (25.0-35.0); MCHC 33.1 g/dL (31.0-37.0); MCV 84.8 fL (80.0-100.0); Mean Platelet Volume 8.1; Monocytes # (A) 0.3 k/uL (0-1.0); Monocytes % (A) 6 %; Neutrophils # (A) 3.8 k/uL (1.3-7.7); Neutrophils % (A) 84 %; RBC 4.28 m/uL (4.30-5.90); RDW 16.5 % (11.5-15.5); WBC 4.5 k/uL (3.8-10.6)
[2020-05-29 00:45] LABS: Platelet Count 36 k/uL (150-450)
[2020-05-29 00:50] LABS: INR 1.2 (<1.2); Partial Thromboplastin Time 24.4 sec (22.0-30.0); Prothrombin Time 12.7 sec (9.0-12.0)
[2020-05-29 00:51] LABS: Lactic Acid, Venous 1.4 mmol/L (0.7-2.0)
[2020-05-29 00:58] LABS: ALT 9 U/L (4-49); AST 23 U/L (17-59); African American GFR (CKD) >90 (>60 ml/min/1.73 sqM); Alkaline Phosphatase 78 U/L (38-126); Anion Gap 9 mmol/L; Blood Urea Nitrogen 29 mg/dL (9-20); Calcium 9.2 mg/dL (8.4-10.2); Carbon Dioxide 19 mmol/L (22-30); Chloride 106 mmol/L (98-107); Glucose 150 mg/dL (74-99); Lipase 1896 U/L (23-300); Magnesium 1.6 mg/dL (1.6-2.3); Non-African American GFR(CKD) 88 (>60 ml/min/1.73 sqM); Phosphorus 3.4 mg/dL (2.5-4.5); Potassium 4.5 mmol/L (3.5-5.1); Sodium 134 mmol/L (137-145); Total Protein 7.1 g/dL (6.3-8.2)
[2020-05-29 01:59] VITALS: BP 101/67; PULSE 75
== END 2020-05-29 01:59 | disposition home or self-care (01) ==
LOC: EC 19:23
DX: K70.30 Alcoholic cirrhosis of liver without ascites (principal); F41.9 Anxiety disorder, unspecified; E11.40 Type 2 diabetes mellitus with diabetic neuropathy, unspecified; K21.9 Gastro-esophageal reflux disease without esophagitis; I10 Essential (primary) hypertension; E07.9 Disorder of thyroid, unspecified; F17.200 Nicotine dependence, unspecified, uncomplicated; Z79.4 Long term (current) use of insulin; Z79.890 Hormone replacement therapy; Z79.899 Other long term (current) drug therapy; Z90.49 Acquired absence of other specified parts of digestive tract; Z95.5 Presence of coronary angioplasty implant and graft; Z96.691 Finger-joint replacement of right hand
CPT/HCPCS: 96376; 96361; 96374; 99285; 36415; 93005; 80053; 82140; 83605; 83690; 83735; 84100; 85025; 85610; 85730; 74018; J1170

== ENCOUNTER 2020-06-11 09:03 | Day surgery (SDC) | payer MEDICARE ==
[2020-06-11 09:40] VITALS: RESP 16
[2020-06-11] MEDS: ALBUMIN HUMAN 25% 50 ML in EMPTY BAG 1 BAG IVPB SCH ×4 (09:41→11:42)
[2020-06-11 09:49] LABS: Mean Platelet Volume 9.1
[2020-06-11 09:59] LABS: Platelet Count 40 k/uL (150-450)
[2020-06-11 10:16] LABS: INR 1.1 (<1.2); Prothrombin Time 11.9 sec (9.0-12.0)
[2020-06-11 11:56] VITALS: BP 107/67
[2020-06-11 11:57] VITALS: PULSE 80; TEMP 98.1
--- NOTE | 2020-06-11 12:26 | US ---
Ultrasound-guided paracentesis. DATE OF EXAM: 06/11/2020 CLINICAL HISTORY: Ascites The procedure was discussed with the patient. The risks, complications, benefits, and alternatives we re discussed and any questions were answered. Informed consent was obtained. The patient was placed s upine on the ultrasound table and prepped and draped in the usual sterile fashion. All elements of maximal barrier technique were utilized. Under ultrasound guidance, access into the right lower quadrant was obtained, via the paracentesis catheter system and direct ultrasound guidanc e. Approximately 4.8 liters of straw-colored fluid was removed. The patient was stable throughout the pr ocedure and remained stable upon discharge from Department of Radiology. IMPRESSION: Successful paracentesis under ultrasound guidance.
== END 2020-06-11 12:05 | disposition home or self-care (01) ==
LOC: RADPROMAIN 09:03
PROVIDERS: ATTEND Internal Medicine Gastroenterology
DX: R18.8 Other ascites (principal); D69.6 Thrombocytopenia, unspecified
CPT/HCPCS: 82565; 82947; 85049; 85610; 36415; 49083; P9073; P9047

== ENCOUNTER 2020-06-25 09:01 | Day surgery (SDC) | payer MEDICARE ==
[2020-06-25 09:44] LABS: Platelet Count 50 k/uL (150-450)
[2020-06-25 09:52] VITALS: RESP 16; TEMP 98.3
[2020-06-25] MEDS: ALBUMIN HUMAN 25% 50 ML in EMPTY BAG 1 BAG IVPB SCH ×3 (09:54→11:16)
[2020-06-25 09:55] LABS: INR 1.1 (<1.2); Prothrombin Time 11.4 sec (9.0-12.0)
[2020-06-25 11:04] VITALS: BP 98/56; PULSE 70
--- NOTE | 2020-06-25 13:57 | US ---
EXAMINATION TYPE: US paracentesis abd w/image DATE OF EXAM: 06/25/2020 COMPARISON: NONE HISTORY: Ascites. PROCEDURE: Maximal barrier technique was utilized. The skin overlying a suitable pocket of fluid was localized with ultrasound and the overlying skin was prepped and draped. Ultrasound was utilized with sterile technique. Lidocaine was used for local anesthesia and a skin gia made with a scalpel. Catheter was advanced under direct ultrasound guidance into a suitable pocket of fluid and approximately 4.5 liter s of serous fluid were removed. Catheter was withdrawn and hemostasis achieved. There is no immedia te complication; the patient is discharged in stable condition. IMPRESSION: STATUS POST ULTRASOUND GUIDED PARACENTESIS FOR PALLIATION OF ASCITES. THIS PROCEDURE WA S PERFORMED BY THE UNDERSIGNED.
== END 2020-06-25 11:11 | disposition home or self-care (01) ==
LOC: RADPROMAIN 09:01
PROVIDERS: ATTEND Internal Medicine Gastroenterology
DX: R18.8 Other ascites (principal)
CPT/HCPCS: 82565; 82947; 85049; 85610; 36415; 49083; P9047

== ENCOUNTER 2020-07-23 09:54 | Day surgery (SDC) | payer MEDICARE ==
[2020-07-23 10:41] LABS: Mean Platelet Volume 9.6; Platelet Count 41 k/uL (150-450)
[2020-07-23 10:48] LABS: African American GFR (CKD) >90 (>60 ml/min/1.73 sqM); Glucose 172 mg/dL (74-99); Non-African American GFR(CKD) 81 (>60 ml/min/1.73 sqM)
[2020-07-23 10:49] LABS: INR 1.2 (<1.2); Prothrombin Time 12.7 sec (9.0-12.0)
[2020-07-23] MEDS: ALBUMIN HUMAN 25% 50 ML in EMPTY BAG 1 BAG IVPB SCH ×4 (11:10→12:43)
[2020-07-23 11:24] VITALS: RESP 16
[2020-07-23 12:41] VITALS: BP 102/66; PULSE 87
--- NOTE | 2020-07-23 16:33 | US ---
EXAMINATION TYPE: US paracentesis abd w/image DATE OF EXAM: 07/23/2020 COMPARISON: NONE HISTORY: Ascites. PROCEDURE: Maximal barrier technique was utilized. The skin overlying a suitable pocket of fluid was localized with ultrasound and the overlying skin was prepped and draped. Ultrasound was utilized with sterile technique. Lidocaine was used for local anesthesia and a skin gia made with a scalpel. Catheter was advanced under direct ultrasound guidance into a suitable pocket of fluid and approximately 6.9 liter s of serous fluid were removed. Catheter was withdrawn and hemostasis achieved. There is no immedia te complication; the patient is discharged in stable condition. IMPRESSION: STATUS POST ULTRASOUND GUIDED PARACENTESIS FOR PALLIATION OF ASCITES. THIS PROCEDURE WA S PERFORMED BY THE UNDERSIGNED.
== END 2020-07-23 12:55 | disposition home or self-care (01) ==
LOC: RADPROMAIN 09:54
PROVIDERS: ATTEND Internal Medicine Gastroenterology
DX: K70.31 Alcoholic cirrhosis of liver with ascites (principal)
CPT/HCPCS: 82565; 82947; 85049; 85610; 36415; 49083; P9047

== ENCOUNTER 2020-08-06 12:03 | Day surgery (SDC) | payer MEDICARE ==
[2020-08-06] MEDS: ALBUMIN HUMAN 25% 50 ML in EMPTY BAG 1 BAG IVPB SCH ×3 (12:41→15:46)
[2020-08-06 12:58] LABS: Mean Platelet Volume 7.9
[2020-08-06 13:03] VITALS: TEMP 97.9
[2020-08-06 13:08] LABS: Platelet Count 39 k/uL (150-450)
[2020-08-06 13:23] LABS: INR 1.2 (<1.2); Prothrombin Time 12.7 sec (9.0-12.0)
[2020-08-06 15:45] VITALS: RESP 18
[2020-08-06 16:11] VITALS: BP 114/76; PULSE 100
--- NOTE | 2020-08-07 08:08 | US ---
Ultrasound-guided paracentesis. DATE OF EXAM: 08/06/2020 CLINICAL HISTORY: Ascites The procedure was discussed with the patient. The risks, complications, benefits, and alternatives we re discussed and any questions were answered. Informed consent was obtained. The patient was placed s upine on the ultrasound table and prepped and draped in the usual sterile fashion. All elements of maximal barrier technique were utilized. Under ultrasound guidance, access into the right lower quadrant was obtained, via the paracentesis catheter system and direct ultrasound guidanc e. Approximately 8.9 liters of straw-colored fluid was removed. The patient was stable throughout the pr ocedure and remained stable upon discharge from Department of Radiology. IMPRESSION: Successful paracentesis under ultrasound guidance.
== END 2020-08-06 16:10 | disposition home or self-care (01) ==
LOC: RADPROMAIN 12:03
PROVIDERS: ATTEND Internal Medicine Gastroenterology
DX: R18.8 Other ascites (principal)
CPT/HCPCS: 82565; 82947; 85049; 85610; 36415; 49083; P9073; P9047

== ENCOUNTER 2020-08-11 16:30 | Emergency (ER) | payer MEDICARE ==
[2020-08-11] MEDS ORDERED: MORPHINE SULFATE 4 MG/ML SYRINGE IVP STA (17:05)
--- NOTE | 2020-08-11 17:09 | ED ---
General Adult HPI - General Chief complaint: Abdominal Pain Stated complaint: Abd Pain Time Seen by Provider: 08/11/20 16:35 Source: patient Mode of arrival: ambulatory Limitations: no limitations - History of Present Illness Initial comments: 44-year-old male with a complicated past medical history including alcohol abuse, stage IV liver cirrhosis, portal hypertension, pancreatitis, ascites requiring frequent paracentesis since to the emergency room for a chief of medicine of abdominal pain. Patient reports that all day he has had upper abdominal pain. Patient states he did have a stent placed in his pancreas at [facility] 2 weeks ago. He also had a paracentesis on Thursday where they removed 9 L. Patient states he feels like his abdomen is full again. Patient denies any fevers. Denies constitutional symptoms. Patient has no other complaints at this time including shortness of breath, chest pain, nausea or vomiting, headache, or visual changes. - Related Data Home Medications Medication Instructions Recorded Confirmed Propranolol HCl [Inderal Xl] 80 mg PO Q48H 06/27/19 08/11/20 Furosemide [Lasix] 40 mg PO DAILY 07/11/19 08/11/20 Pantoprazole Sodium [Protonix] 20 mg PO BID 10/12/19 08/11/20 INSULIN ASPART (NovoLOG) [NovoLOG See Protocol SQ AC-TID 06/11/20 08/11/20 (formulary)] Insulin Glargine [Lantus] 24 units SQ DAILY 06/11/20 08/11/20 Sildenafil [Revatio] 10 mg PO TID 06/11/20 08/11/20 Levothyroxine Sodium [Synthroid] 50 mcg PO DAILY 08/11/20 08/11/20 Spironolactone 50 mg PO DAILY 08/11/20 08/11/20 Allergies Allergy/AdvReac Type Severity Reaction Status Date / Time No Known Allergies Allergy Verified 08/11/20 19:34 Review of Systems ROS Statement: Those systems with pertinent positive or pertinent negative responses have been documented in the HPI. ROS Other: All systems not noted in ROS Statement are negative. Past Medical History Past Medical History: Diabetes Mellitus, GERD/Reflux, GI Bleed, Hypertension, Liver Disease, Thyroid Disorder Additional Past Medical History / Comment(s): Liver cirrhosis stage 4 portal htn, ETOH abuse, esophageal varicies, upper GI bleed, chronic thrombocytopenia, coagulopathy, pancytopenia, ascities, spinal stenosis: back/leg and feet pain, DDD, chronic back pain, neuropathy bilateral legs/feet, falls, bronchitis, 2010 Guillium [place], chronic pancreatitis, ascites, newly diagnosed diabetic [id number], pulmonary hypertension, thrombocytopenia, patient no longer on transplant list related to high pulmonary hypertension. History of Any Multi-Drug Resistant Organisms: None Reported Past Surgical History: Appendectomy, Heart Catheterization, Joint Replacement Additional Past Surgical History / Comment(s): EGDs, multiple large volume paracentesis, back injections, R thumb reattachment, circumcism, right heart catheterization Past Anesthesia/Blood Transfusion Reactions: No Reported Reaction Additional Past Anesthesia/Blood Transfusion Reaction / Comment(s): Pt has received blood product without reaction. Past Psychological History: Depression Smoking Status: Current some day smoker Past Alcohol Use History: None Reported Past Drug Use History: Marijuana - Past Family History Father Family Medical History: Unable to Obtain Additional Family Medical History / Comment(s): Pt does not know his father's medical hx. Mother Family Medical History: No Reported History Additional Family Medical History / Comment(s): Mother is healthy. Brother(s) Additional Family Medical History / Comment(s): Patient has 3 brothers and one suffers from alcohol abuse. 2 brothers have no major medical problems. Patient does not have any sisters. Patient is one daughter 12 years old with no major medical problems. General Exam Limitations: no limitations General appearance: alert, in no apparent distress Head exam: Present: atraumatic, normocephalic, normal inspection Eye exam: Present: normal appearance, PERRL, EOMI. Absent: scleral icterus, conjunctival injection, periorbital swelling ENT exam: Present: normal exam, mucous membranes moist Neck exam: Present: normal inspection, full ROM. Absent: tenderness, meningismus, lymphadenopathy Respiratory exam: Present: normal lung sounds bilaterally. Absent: respiratory distress, wheezes, rales, rhonchi, stridor Cardiovascular Exam: Present: regular rate, normal rhythm, normal heart sounds. Absent: systolic murmur, diastolic murmur, rubs, gallop, clicks GI/Abdominal exam: Present: distended, tenderness (Diffuse abdominal tenderness), normal bowel sounds. Absent: guarding, rebound, rigid Neurological exam: Present: alert Course Vital Signs 06/02/1908/11/20 08/11/20 16:31 20:13 21:00 Temperature 97.5 F L Pulse Rate 111 H 101 H Respiratory 24 16 Rate Blood Pressure 108/76 98/75 105/84 O2 Sat by Pulse 100 100 Oximetry Medical Decision Making - Medical Decision Making Vitals are stable. Patient afebrile. He does have some generalized abdominal tenderness noted. CBC is unremarkable. White count is 4.6. Platelet count is baseline at 47. CMP shows mild hyponatremia. Lipase is elevated to baseline at 633. Urinalysis is unremarkable. CT abdomen and pelvis did show massive abdominal ascites. There is a small amount of air in the gallbladder in the biliary tree consistent with reflux. This would be related to stent replacement 2 weeks ago at [facility]. There is also umbilical hernia containing ascites fluid, patient reports this has been there for a year but just started to drain today. I did discuss this case with Dr. Hays who is on- call for Dr. Pablo Linn. At this time she is not comfortable admitting patient to this facility given his liver specialist Dr. Hernández as well as his recent surgeon 2 weeks ago are out of [facility]. We do not have GI coverage. There is concern that this is a complicated patient and recommends transfer. Given patient's ascites, abdominal pain worsening after his stent placement with air in the biliary tree we will transfer. Dr. Mcmahon did accept trasnfer. - Lab Data Result diagrams: 08/11/20 17:14 08/11/20 17:14 Lab Results 08/11/20 08/11/20 08/11/20 Range/Units 17:14 17:14 17:14 WBC 4.6 (3.8-10.6) k/uL RBC 4.35 (4.30-5.90) m/uL Hgb 11.8 L (13.0-17.5) gm/dL Hct 36.0 L (39.0-53.0) % MCV 82.6 (80.0-100.0) fL MCH 27.1 (25.0-35.0) pg MCHC 32.8 (31.0-37.0) g/dL RDW 16.5 H (11.5-15.5) % Plt Count 47 L (150-450) k/uL MPV 8.1 Neutrophils % 79 % Lymphocytes % 10 % Monocytes % 8 % Eosinophils % 2 % Basophils % 0 % Neutrophils # 3.6 (1.3-7.7) k/uL Lymphocytes # 0.4 L (1.0-4.8) k/uL Monocytes # 0.4 (0-1.0) k/uL Eosinophils # 0.1 (0-0.7) k/uL Basophils # 0.0 (0-0.2) k/uL Hypochromasia Slight Anisocytosis Slight Sodium 132 L (137-145) mmol/L Potassium 4.3 (3.5-5.1) mmol/L Chloride 104 (98-107) mmol/L Carbon Dioxide 19 L (22-30) mmol/L Anion Gap 9 mmol/L BUN 32 H (9-20) mg/dL Creatinine 1.31 H (0.66-1.25) mg/dL Est GFR (CKD-EPI)AfAm 76 (>60 ml/min/1.73 sqM) Est GFR (CKD-EPI)NonAf 66 (>60 ml/min/1.73 sqM) Glucose 147 H (74-99) mg/dL Plasma Lactic Acid Reji 2.0 (0.7-2.0) mmol/L Calcium 9.0 (8.4-10.2) mg/dL Total Bilirubin 1.8 H (0.2-1.3) mg/dL AST 26 (17-59) U/L ALT 10 (4-49) U/L Alkaline Phosphatase 73 (38-126) U/L Total Protein 6.1 L (6.3-8.2) g/dL Albumin 3.3 L (3.5-5.0) g/dL Amylase 130 H (30-110) U/L Lipase 633 H (23-300) U/L Urine Color Urine Appearance (Clear) Urine pH (5.0-8.0) Ur Specific [place] (1.001-1.035) Urine Protein (Negative) Urine Glucose (UA) (Negative) Urine Ketones (Negative) Urine Blood (Negative) Urine Nitrite (Negative) Urine Bilirubin (Negative) Urine Urobilinogen (<2.0) mg/dL Ur Leukocyte Esterase (Negative) 08/11/20 Range/Units 18:37 WBC (3.8-10.6) k/uL RBC (4.30-5.90) m/uL Hgb (13.0-17.5) gm/dL Hct (39.0-53.0) % MCV (80.0-100.0) fL MCH (25.0-35.0) pg MCHC (31.0-37.0) g/dL RDW (11.5-15.5) % Plt Count (150-450) k/uL MPV Neutrophils % % Lymphocytes % % Monocytes % % Eosinophils % % Basophils % % Neutrophils # (1.3-7.7) k/uL Lymphocytes # (1.0-4.8) k/uL Monocytes # (0-1.0) k/uL Eosinophils # (0-0.7) k/uL Basophils # (0-0.2) k/uL Hypochromasia Anisocytosis Sodium (137-145) mmol/L Potassium (3.5-5.1) mmol/L Chloride (98-107) mmol/L Carbon Dioxide (22-30) mmol/L Anion Gap mmol/L BUN (9-20) mg/dL Creatinine (0.66-1.25) mg/dL Est GFR (CKD-EPI)AfAm (>60 ml/min/1.73 sqM) Est GFR (CKD-EPI)NonAf (>60 ml/min/1.73 sqM) Glucose (74-99) mg/dL Plasma Lactic Acid Reji (0.7-2.0) mmol/L Calcium (8.4-10.2) mg/dL Total Bilirubin (0.2-1.3) mg/dL AST (17-59) U/L ALT (4-49) U/L Alkaline Phosphatase (38-126) U/L Total Protein (6.3-8.2) g/dL Albumin (3.5-5.0) g/dL Amylase (30-110) U/L Lipase (23-300) U/L Urine Color Yellow Urine Appearance Clear (Clear) Urine pH 5.5 (5.0-8.0) Ur Specific Marshall 1.029 (1.001-1.035) Urine Protein Trace H (Negative) Urine Glucose (UA) Negative (Negative) Urine Ketones Trace H (Negative) Urine Blood Negative (Negative) Urine Nitrite Negative (Negative) Urine Bilirubin 1+ H (Negative) Urine Urobilinogen 3.0 (<2.0) mg/dL Ur Leukocyte Esterase Negative (Negative) Disposition Clinical Impression: Ascites, Abdominal pain Narrative: air in the biliary tree Disposition: OTHER INSTITUTION NOT DEFINED Is patient prescribed a controlled substance at d/c from ED?: No Referrals: Pablo Linn MD [Primary Care Provider] - 1-2 days Time of Disposition: 21:43 - Out of Hospital Transfer - Req. Specs Out of Hospital Transfer - Requested Specifics: Other Emergency Center ([place])
[2020-08-11 17:21] LABS: Anisocytosis Slight; Basophils % (A) 0 %; Eosinophils # (A) 0.1 k/uL (0-0.7); Eosinophils % (A) 2 %; HGB 11.8 gm/dL (13.0-17.5); Hypochromasia Slight; Lymphocytes # (A) 0.4 k/uL (1.0-4.8); Lymphocytes % (A) 10 %; MCH 27.1 pg (25.0-35.0); MCHC 32.8 g/dL (31.0-37.0); MCV 82.6 fL (80.0-100.0); Mean Platelet Volume 8.1; Monocytes # (A) 0.4 k/uL (0-1.0); Monocytes % (A) 8 %; Neutrophils # (A) 3.6 k/uL (1.3-7.7); Neutrophils % (A) 79 %; RBC 4.35 m/uL (4.30-5.90); RDW 16.5 % (11.5-15.5); WBC 4.6 k/uL (3.8-10.6)
[2020-08-11 17:31] LABS: Platelet Count 47 k/uL (150-450)
[2020-08-11 17:32] LABS: Albumin 3.3 g/dL (3.5-5.0); Potassium 4.3 mmol/L (3.5-5.1); Total Bilirubin 1.8 mg/dL (0.2-1.3); Total Protein 6.1 g/dL (6.3-8.2)
[2020-08-11] MEDS ORDERED: HYDROmorphone 0.5 MG/0.5 ML SYRINGE IVP STA ×2 (18:08→21:11)
[2020-08-11 18:41] LABS: Appearance,Urine Clear (Clear); Bilirubin,Urine 1+ (Negative); Blood,Urine Negative (Negative); Color,Urine Yellow; Glucose,Urine (UA) Negative (Negative); Ketones,Urine Trace (Negative); Leukocyte Esterase,Urine Negative (Negative); Nitrite,Urine Negative (Negative); PH, Urine 5.5 (5.0-8.0); Protein,Urine Trace (Negative); Specific Gravity,Urine 1.029 (1.001-1.035)
--- NOTE | 2020-08-11 19:59 | CT ---
EXAMINATION TYPE: CT abdomen pelvis w con DATE OF EXAM: 08/11/2020 COMPARISON: 10/12/2019 HISTORY: Abdominal pain, hx liver disease CT DLP: 937.9 mGycm Automated exposure control for dose reduction was used. CONTRAST: Performed with IV Contrast, patient injected with 100 mL of Isovue 300. Lung bases are clear. There is no pleural effusion. Heart size is normal. There is large amount of abdominal ascites fluid. Liver is irregular consistent with cirrhosis. Splee n is enlarged and measures 17 cm. Liver is small and measures 16 cm. The bile ducts are not dilated. There is small amount of air in the biliary tree. Stomach is intact. There are numerous pancreatic ca lcifications. I see no pancreatic mass. The bile ducts are not dilated. There is no adrenal mass. Kidneys show satisfactory contrast opacification. There is no hydronephrosi s. There is umbilical hernia that contains ascites fluid. There is no evidence of bladder mass. There is no inguinal hernia. There is no evidence of a pelvic mass. Lumbar vertebra have normal alignment. Posterior elements are intact. There is no compression fractur e. Bony pelvis is intact. The hip joints are intact. IMPRESSION: There is massive abdominal ascites fluid that is increased compared to old exam. Splenomegaly. Hepati c cirrhosis. No dilated ducts. There is small amount of air in the gallbladder and the biliary tree c onsistent with reflux. This is a change compared to old exam. Changes in the pancreas consistent with chronic pancreatitis appears stable. There is a new umbilical hernia containing ascites fluid compared to old exam.
[2020-08-11 22:37] VITALS: BP 117/73; PULSE 97; RESP 14; TEMP 98.9
== END 2020-08-11 22:08 | disposition other institution (70) ==
LOC: EC 16:30
DX: R18.8 Other ascites (principal); R10.84 Generalized abdominal pain; I10 Essential (primary) hypertension; E11.40 Type 2 diabetes mellitus with diabetic neuropathy, unspecified; K21.9 Gastro-esophageal reflux disease without esophagitis; F32.9 Major depressive disorder, single episode, unspecified; F17.200 Nicotine dependence, unspecified, uncomplicated; F12.90 Cannabis use, unspecified, uncomplicated; Z79.4 Long term (current) use of insulin
CPT/HCPCS: 36415; 80053; 82150; 83605; 83690; 85025; 81003; 87040; 74177; 99285; 96374; 96376; 96375; J2270; J1170; Q9967

== ENCOUNTER 2020-08-14 12:45 | Day surgery (SDC) | payer MEDICARE ==
[2020-08-14 13:05] VITALS: TEMP 99.1
[2020-08-14] MEDS: ALBUMIN HUMAN 25% 50 ML in EMPTY BAG 1 BAG IVPB SCH ×3 (13:18→15:32)
[2020-08-14 13:27] LABS: Mean Platelet Volume 7.6
[2020-08-14 13:28] LABS: Platelet Count 49 k/uL (150-450)
[2020-08-14 13:29] LABS: INR 1.3 (<1.2); Prothrombin Time 12.9 sec (9.0-12.0)
[2020-08-14 15:30] VITALS: BP 106/64; PULSE 98; RESP 16
--- NOTE | 2020-08-16 12:05 | US ---
Ultrasound-guided paracentesis. DATE OF EXAM: 08/14/2020 CLINICAL HISTORY: Ascites The procedure was discussed with the patient. The risks, complications, benefits, and alternatives we re discussed and any questions were answered. Informed consent was obtained. The patient was placed s upine on the ultrasound table and prepped and draped in the usual sterile fashion. All elements of maximal barrier technique were utilized. Under ultrasound guidance, access into the right lower quadrant was obtained, via the paracentesis catheter system and direct ultrasound guidanc e. Approximately 5.5 liters of straw-colored fluid was removed. The patient was stable throughout the pr ocedure and remained stable upon discharge from Department of Radiology. IMPRESSION: Successful paracentesis under ultrasound guidance.
== END 2020-08-14 15:15 | disposition home or self-care (01) ==
LOC: RADPROMAIN 12:45
PROVIDERS: ATTEND Internal Medicine Gastroenterology
DX: K70.31 Alcoholic cirrhosis of liver with ascites (principal)
CPT/HCPCS: 82565; 82947; 85049; 85610; 36415; 49083; P9047

== ENCOUNTER 2020-08-20 10:40 | Day surgery (SDC) | payer MEDICARE ==
[2020-08-20 11:04] LABS: Mean Platelet Volume 8.7; Platelet Count 55 k/uL (150-450)
[2020-08-20] MEDS: ALBUMIN HUMAN 25% 50 ML in EMPTY BAG 1 BAG IVPB SCH ×4 (11:17→14:03)
[2020-08-20 11:46] VITALS: RESP 18; TEMP 98.6
[2020-08-20 11:53] LABS: INR 1.2 (<1.2); Prothrombin Time 12.8 sec (9.0-12.0)
[2020-08-20 14:47] VITALS: BP 102/64; PULSE 102
--- NOTE | 2020-08-20 15:11 | US ---
EXAMINATION TYPE: US paracentesis abd w/image DATE OF EXAM: 08/20/2020 COMPARISON: NONE HISTORY: Ascites. PROCEDURE: Maximal barrier technique was utilized. The skin overlying a suitable pocket of fluid was localized with ultrasound and the overlying skin was prepped and draped. Ultrasound was utilized with sterile technique. Lidocaine was used for local anesthesia and a skin gia made with a scalpel. Catheter was advanced under direct ultrasound guidance into a suitable pocket of fluid and approximately 4.1 liter s of serous fluid were removed. Catheter was withdrawn and hemostasis achieved. There is no immedia te complication; the patient is discharged in stable condition. IMPRESSION: STATUS POST ULTRASOUND GUIDED PARACENTESIS FOR PALLIATION OF ASCITES. THIS PROCEDURE WA S PERFORMED BY THE UNDERSIGNED.
== END 2020-08-20 14:50 | disposition home or self-care (01) ==
LOC: RADPROMAIN 10:40
PROVIDERS: ATTEND Internal Medicine Gastroenterology
DX: K70.31 Alcoholic cirrhosis of liver with ascites (principal)
CPT/HCPCS: 82565; 82947; 85049; 85610; 36415; 49083; P9047

== ENCOUNTER 2020-08-27 08:59 | Day surgery (SDC) | payer MEDICARE ==
[2020-08-27 09:14] VITALS: RESP 16
[2020-08-27 09:37] LABS: Mean Platelet Volume 8.6
[2020-08-27 09:56] LABS: INR 1.2 (<1.2); Platelet Count 50 k/uL (150-450); Prothrombin Time 12.4 sec (9.0-12.0)
[2020-08-27] MEDS: ALBUMIN HUMAN 25% 50 ML in EMPTY BAG 1 BAG IVPB SCH ×3 (10:32→11:04)
[2020-08-27 10:38] VITALS: TEMP 99.2
[2020-08-27 11:30] VITALS: PULSE 98
[2020-08-27 11:33] VITALS: BP 99/66
--- NOTE | 2020-08-27 12:35 | US ---
Ultrasound-guided paracentesis. DATE OF EXAM: 08/27/2020 CLINICAL HISTORY: Ascites The procedure was discussed with the patient. The risks, complications, benefits, and alternatives we re discussed and any questions were answered. Informed consent was obtained. The patient was placed s upine on the ultrasound table and prepped and draped in the usual sterile fashion. All elements of maximal barrier technique were utilized. Under ultrasound guidance, access into the right lower quadrant was obtained, via the paracentesis catheter system and direct ultrasound guidanc e. Approximately 6.4 liters of straw-colored fluid was removed. The patient was stable throughout the pr ocedure and remained stable upon discharge from Department of Radiology. IMPRESSION: Successful paracentesis under ultrasound guidance.
== END 2020-08-27 11:40 | disposition home or self-care (01) ==
LOC: RADPROMAIN 08:59
PROVIDERS: ATTEND Internal Medicine Gastroenterology
DX: K03.1 Abrasion of teeth (principal)
CPT/HCPCS: 82565; 82947; 85049; 85610; 87070; 87205; 87075; 36415; 49083; P9047

== ENCOUNTER 2020-09-04 | Day surgery (SDC) | payer MEDICARE | END 2020-09-04 14:45 | disposition home or self-care (01) | DX: R18.8 Other ascites (principal) | CPT/HCPCS: 82565; 82947; 85049; 85610; 36415; 49083; P9047 ==

== ENCOUNTER 2020-09-06 15:50 | Inpatient (IN) | payer MEDICARE ==
[2020-09-06] MEDS ORDERED: SODIUM CHLORIDE 0.9% 1,000 ML IV STA (17:12)
[2020-09-06] MEDS ORDERED: MORPHINE SULFATE 4 MG/ML SYRINGE IV STA (17:12)
[2020-09-06 17:36] LABS: Anisocytosis Slight; Basophils % (A) 0 %; Eosinophils % (A) 1 %; HCT 27.8 % (39.0-53.0); Lymphocytes # (A) 0.3 k/uL (1.0-4.8); Lymphocytes % (A) 6 %; MCH 27.2 pg (25.0-35.0); Mean Platelet Volume 7.6; Microcytosis Slight; Monocytes # (A) 0.3 k/uL (0-1.0); Monocytes % (A) 7 %; Neutrophils # (A) 4.2 k/uL (1.3-7.7); Neutrophils % (A) 85 %; RBC 3.48 m/uL (4.30-5.90); RDW 17.3 % (11.5-15.5)
[2020-09-06 17:44] LABS: HGB 9.5 gm/dL (13.0-17.5); Platelet Count 62 k/uL (150-450)
--- NOTE | 2020-09-06 17:47 | XR ---
EXAMINATION TYPE: XR KUB DATE OF EXAM: 09/06/2020 5:38 PM CLINICAL HISTORY: Abdominal pain, history of liver disease. TECHNIQUE: Two Upright KUB images of the abdomen are obtained. COMPARISON: CT abdomen and pelvis August 11, 2020. Abdominal x-ray May 28, 2020 FINDINGS: Scattered gas is seen in non-distended small bowel loops. Gas and fecal material is seen in non-distended colon. Central pneumobilia on the right upper quadrant is redemonstrated. Calcificatio ns related to chronic pancreatitis again seen. There is metallic internal biliary stent again identif ied. Pelvic ascites remains present. Ascites less prominent than recent CT. Visualized lung bases are clear. No free air. Visualized osseous structures intact. IMPRESSION: Overall nonobstructive bowel gas pattern. Chronic pancreatitis redemonstrated. Pneumobilia with metal lic internal biliary stent redemonstrated. Persistent pelvic ascites though less prominent than recen t CT.
[2020-09-06 17:48] LABS: Albumin 2.8 g/dL (3.5-5.0); Calcium 7.8 mg/dL (8.4-10.2); Potassium 3.9 mmol/L (3.5-5.1); Total Bilirubin 1.5 mg/dL (0.2-1.3); Total Protein 5.2 g/dL (6.3-8.2)
[2020-09-06 17:50] LABS: INR 1.3 (<1.2); Prothrombin Time 13.2 sec (9.0-12.0)
[2020-09-06 17:53] LABS: Partial Thromboplastin Time 21.8 sec (22.0-30.0)
[2020-09-06] MEDS ORDERED: NALOXONE 0.4 MG/ML 1 ML VIAL IV PRN (19:35)
--- NOTE | 2020-09-06 19:42 | ED ---
Recheck HPI - General Chief Complaint: Recheck/Abnormal Lab/Rx Stated Complaint: Abnormal labs, post paracentesis Time Seen by Provider: 09/06/20 17:02 Source: patient, RN notes reviewed Mode of arrival: ambulatory Limitations: no limitations - History of Present Illness Initial Comments: Patient is a 44-year-old male that presents to the emergency Department at the request of his specialist due to an elevated creatinine at 3.13. Patient notes that he does not have any symptoms or complaints at this time just in his labs rechecked. Patient does state that he hasn't extensive medical history including liver failure and is tried to get a liver transplant. He notes that he recently did have a paracentesis done 2 days ago. He notes that he does have a large umbilical hernia. He usually wears a binder to keep everything compress. He denied any other issues or complaints at this time. He denied any chest pain shortness of breath headache nausea vomiting diarrhea constipation fever fatigue chills. - Related Data Home Medications Medication Instructions Recorded Confirmed Furosemide [Lasix] 40 mg PO BID 07/11/19 09/06/20 Pantoprazole Sodium [Protonix] 20 mg PO BID 10/12/19 09/06/20 Insulin Glargine [Lantus] 24 units SQ DAILY 06/11/20 09/06/20 Sildenafil [Revatio] 20 mg PO TID 06/11/20 09/06/20 Levothyroxine Sodium [Synthroid] 50 mcg PO DAILY 08/11/20 09/06/20 Spironolactone 50 mg PO TID 08/11/20 09/06/20 Morphine Sulfate Ir [MSIR] 30 mg PO Q4HR PRN 09/04/20 09/06/20 Insulin Aspart [NovoLOG Flexpen] See Protocol SQ AC-TID 09/06/20 09/06/20 Allergies Allergy/AdvReac Type Severity Reaction Status Date / Time No Known Allergies Allergy Verified 09/06/20 18:10 Review of Systems ROS Statement: Those systems with pertinent positive or pertinent negative responses have been documented in the HPI. ROS Other: All systems not noted in ROS Statement are negative. Past Medical History Past Medical History: Diabetes Mellitus, GERD/Reflux, GI Bleed, Hypertension, Liver Disease, Thyroid Disorder Additional Past Medical History / Comment(s): Liver cirrhosis stage 4 portal htn, ETOH abuse, esophageal varicies, upper GI bleed, chronic thrombocytopenia, coagulopathy, pancytopenia, ascities, spinal stenosis: back/leg and feet pain, DDD, chronic back pain, neuropathy bilateral legs/feet, falls, bronchitis, 2010 Guillium [place], chronic pancreatitis, ascites, newly diagnosed diabetic [id number], pulmonary hypertension, thrombocytopenia, patient no longer on transplant list related to high pulmonary hypertension. History of Any Multi-Drug Resistant Organisms: None Reported Past Surgical History: Appendectomy, Heart Catheterization, Joint Replacement Additional Past Surgical History / Comment(s): EGDs, multiple large volume paracentesis, back injections, R thumb reattachment, circumcism, right heart catheterization Past Anesthesia/Blood Transfusion Reactions: No Reported Reaction Additional Past Anesthesia/Blood Transfusion Reaction / Comment(s): Pt has received blood product without reaction. Past Psychological History: Depression Smoking Status: Current some day smoker Past Alcohol Use History: None Reported Past Drug Use History: Marijuana - Past Family History Father Family Medical History: Unable to Obtain Additional Family Medical History / Comment(s): Pt does not know his father's medical hx. Mother Family Medical History: No Reported History Additional Family Medical History / Comment(s): Mother is healthy. Brother(s) Additional Family Medical History / Comment(s): Patient has 3 brothers and one suffers from alcohol abuse. 2 brothers have no major medical problems. Patient does not have any sisters. Patient is one daughter 12 years old with no major medical problems. General Exam Limitations: no limitations General appearance: alert, in no apparent distress Head exam: Present: atraumatic, normocephalic, normal inspection Eye exam: Present: normal appearance, PERRL, EOMI. Absent: scleral icterus, conjunctival injection, periorbital swelling Neck exam: Present: normal inspection Respiratory exam: Present: normal lung sounds bilaterally. Absent: respiratory distress, wheezes, rales, rhonchi, stridor Cardiovascular Exam: Present: regular rate, normal rhythm, normal heart sounds. Absent: systolic murmur, diastolic murmur, rubs, gallop, clicks GI/Abdominal exam: Present: soft, normal bowel sounds, other (Large umbilical hernia). Absent: distended, tenderness, guarding, rebound, rigid Extremities exam: Present: normal inspection, full ROM, normal capillary refill. Absent: tenderness, pedal edema, joint swelling, calf tenderness Neurological exam: Present: alert, oriented X3 Psychiatric exam: Present: normal affect, normal mood Skin exam: Present: warm, dry, intact, normal color. Absent: rash Course Vital Signs 09/06/20 09/06/20 17:28 18:20 Pulse Rate 89 84 Respiratory 16 16 Rate Blood Pressure 102/86 100/69 O2 Sat by Pulse 99 100 Oximetry Medical Decision Making - Medical Decision Making 44-year-old male presenting to get labs rechecked due to an elevated creatinine. Labs, 1 L normal saline, 4 mg of morphine ordered. Labs: Creatinine 1.45 down from 3.13, lipase 3465. Rest of labs sent were to baseline. Case discussed with Dr. White, patient will be admitted inpatient for acute kidney injury and elevated lipase. Case discussed with Dr. Garcia, she'll accept the admit with nephrology in on consult. - Lab Data Result diagrams: 09/06/20 17:30 09/06/20 17:24 Lab Results 09/06/20 09/06/20 09/06/20 Range/Units 17:24 17:24 17:24 WBC (3.8-10.6) k/uL RBC (4.30-5.90) m/uL Hgb (13.0-17.5) gm/dL Hct (39.0-53.0) % MCV (80.0-100.0) fL MCH (25.0-35.0) pg MCHC (31.0-37.0) g/dL RDW (11.5-15.5) % Plt Count (150-450) k/uL MPV Neutrophils % % Lymphocytes % % Monocytes % % Eosinophils % % Basophils % % Neutrophils # (1.3-7.7) k/uL Lymphocytes # (1.0-4.8) k/uL Monocytes # (0-1.0) k/uL Eosinophils # (0-0.7) k/uL Basophils # (0-0.2) k/uL Anisocytosis Microcytosis PT 13.2 H (9.0-12.0) sec INR 1.3 H (<1.2) APTT 21.8 L (22.0-30.0) sec Sodium 132 L (137-145) mmol/L Potassium 3.9 (3.5-5.1) mmol/L Chloride 99 (98-107) mmol/L Carbon Dioxide 25 (22-30) mmol/L Anion Gap 8 mmol/L BUN 53 H (9-20) mg/dL Creatinine 1.45 H (0.66-1.25) mg/dL Est GFR (CKD-EPI)AfAm 67 (>60 ml/min/1.73 sqM) Est GFR (CKD-EPI)NonAf 58 (>60 ml/min/1.73 sqM) Glucose 263 H (74-99) mg/dL Plasma Lactic Acid Reji 1.4 (0.7-2.0) mmol/L Calcium 7.8 L (8.4-10.2) mg/dL Total Bilirubin 1.5 H (0.2-1.3) mg/dL AST 30 (17-59) U/L ALT 12 (4-49) U/L Alkaline Phosphatase 76 (38-126) U/L Creatine Kinase 35 L (55-170) U/L Troponin I (0.000-0.034) ng/mL Total Protein 5.2 L (6.3-8.2) g/dL Albumin 2.8 L (3.5-5.0) g/dL Amylase 261 H (30-110) U/L Lipase 3465 H (23-300) U/L 09/06/20 09/06/20 Range/Units 17:24 17:30 WBC 5.0 (3.8-10.6) k/uL RBC 3.48 L (4.30-5.90) m/uL Hgb 9.5 L D (13.0-17.5) gm/dL Hct 27.8 L (39.0-53.0) % MCV 80.0 (80.0-100.0) fL MCH 27.2 (25.0-35.0) pg MCHC 34.0 (31.0-37.0) g/dL RDW 17.3 H (11.5-15.5) % Plt Count 62 L (150-450) k/uL MPV 7.6 Neutrophils % 85 % Lymphocytes % 6 % Monocytes % 7 % Eosinophils % 1 % Basophils % 0 % Neutrophils # 4.2 (1.3-7.7) k/uL Lymphocytes # 0.3 L (1.0-4.8) k/uL Monocytes # 0.3 (0-1.0) k/uL Eosinophils # 0.0 (0-0.7) k/uL Basophils # 0.0 (0-0.2) k/uL Anisocytosis Slight Microcytosis Slight PT (9.0-12.0) sec INR (<1.2) APTT (22.0-30.0) sec Sodium (137-145) mmol/L Potassium (3.5-5.1) mmol/L Chloride (98-107) mmol/L Carbon Dioxide (22-30) mmol/L Anion Gap mmol/L BUN (9-20) mg/dL Creatinine (0.66-1.25) mg/dL Est GFR (CKD-EPI)AfAm (>60 ml/min/1.73 sqM) Est GFR (CKD-EPI)NonAf (>60 ml/min/1.73 sqM) Glucose (74-99) mg/dL Plasma Lactic Acid Reji (0.7-2.0) mmol/L Calcium (8.4-10.2) mg/dL Total Bilirubin (0.2-1.3) mg/dL AST (17-59) U/L ALT (4-49) U/L Alkaline Phosphatase (38-126) U/L Creatine Kinase (55-170) U/L Troponin I <0.012 (0.000-0.034) ng/mL Total Protein (6.3-8.2) g/dL Albumin (3.5-5.0) g/dL Amylase (30-110) U/L Lipase (23-300) U/L Disposition Clinical Impression: Alcoholic cirrhosis of liver, Chronic pancreatitis Disposition: ADMITTED IP TO THIS [facility] Condition: Stable Is patient prescribed a controlled substance at d/c from ED?: No Referrals: Pablo Linn MD [Primary Care Provider] - 1-2 days Time of Disposition: 19:42
[2020-09-06 20:42] LABS: Appearance,Urine Clear (Clear); Bilirubin,Urine Negative (Negative); Blood,Urine Negative (Negative); Color,Urine Yellow; Glucose,Urine (UA) Negative (Negative); Ketones,Urine Negative (Negative); Leukocyte Esterase,Urine Negative (Negative); Nitrite,Urine Negative (Negative); PH, Urine 5.5 (5.0-8.0); Protein,Urine Negative (Negative); Specific Gravity,Urine 1.017 (1.001-1.035); Urobilinogen,Urine <2.0 mg/dL (<2.0)
[2020-09-06] MEDS: SODIUM CHLORIDE 0.9% 1,000 ML IV SCH (21:42)
[2020-09-06] MEDS: MORPHINE SULFATE 4 MG/ML SYRINGE IV PRN (21:43)
[2020-09-07] MEDS: MORPHINE SULFATE 4 MG/ML SYRINGE IV PRN ×5 (01:16→21:27)
[2020-09-07 09:54] LABS: African American GFR (CKD) 94.1 (60.0-200.0); Anion Gap 7.7 mmol/L (4.00-12.00); BUN/Creat Ratio 41.82 Ratio (12.00-20.00); Calcium 7.2 mg/dL (8.7-10.3); Carbon Dioxide 23.3 mmol/L (21.6-31.8); Non-African American GFR(CKD) 81.2 (60.0-200.0); Potassium 3.4 mmol/L (3.5-5.5)
[2020-09-07] MEDS ORDERED: POTASSIUM CHLORIDE ER 20 MEQ TAB.ER PO STA (10:17)
--- NOTE | 2020-09-07 11:58 | US ---
EXAMINATION TYPE: US kidneys/renal and bladder DATE OF EXAM: 09/07/2020 COMPARISON: NONE CLINICAL HISTORY: 44 year-old male acute kidney injury, Ascites TECHNIQUE: Multiple sonographic images of the kidneys and bladder are obtained. FINDINGS: EXAM MEASUREMENTS: Right Kidney: 9.8 x 9.4 x 7.1cm Left Kidney: 10.2 x 3.9 x 5.5 cm No hydronephrosis on either side. Bladder: Mild wall thickening probably due to nondistention. Both ureterals jets seen. Bilateral Jets seen: Yes There is moderate abdominopelvic ascites. IMPRESSION: 1. No evident hydronephrosis. 2. Moderate abdominopelvic ascites.
[2020-09-07 12:22] LABS: Glucose,Whole Blood 197 mg/dL (75-99)
[2020-09-07] MEDS ORDERED: MORPHINE SULFATE IR 15 MG TABLET PO PRN (13:46)
--- NOTE | 2020-09-07 14:02 | P.HPIM ---
History of Present Illness H&P Date: 09/07/20 This is a 44-year-old male patient of Dr. Sarmad Linn. He has history of alcohol liver cirrhosis with portal hypertension and previous GI bleeding, hypertension and gastritis, pancreatitis, spinal stenosis and peripheral neuropathy. Patient also has chronic back pain and was under the c are of Dr. Lagunas but violated pain contract and no longer seen by pain management. He is also known to Dr. Ghazal Leiva from previous EGDs in the past finding gastritis consistent with portal gastropathy but no gastric or esophageal varices or active bleeding. He has had multipe admissions for acute GI bleed. He had admission for right leg abscess requiring I&D in December 2017. Patient has had multiple admissions for acute pancreatitis with worsening ascites. Most recently, hospitalizations have been for ascites and therapeutic paracentesis. Patient has been following with [facility] for liver failure and evaluation for liver transplant and was recently hospitalized last week from Thursday through Thursday. He had biliary stents placed in April at [facility]. He states that he was called by the nurse from [facility] that his lab work was abnormal with creatinine of 3.1 and he was instructed to come in the hospital for further evaluation. He states about 1-1/2 months ago she Did have a change in his medications and Aldactone was decreased to 50 mg per day but he was kept on Lasix. He states this was related to his renal function. He states he sometimes has lightheadedness. He is on lactulose regularly and usually having 3 bowel movements per day. He states he is not eating very much due to abdominal pain. He has noticed that his urine is less volume and is a dark yellow or orange color. He had a paracentesis done on 09/04 at [facility] and 2.1 L of serous fluid were removed. He is on a every week schedule for paracentesis. He states his last alcohol intake was in 2017. Patient came into [facility] emergency center for evaluation. He was afebrile, heart rate 89, blood pressure 102/86, pulse ox 99% on room air. WBC 5.0, hemoglobin 9.5, platelet count 62. Sodium 132, potassium 3.9, chloride 99, CO2 25, BUN 53 and creatinine 1.45. Blood sugar 263. Lactic acid 1.4. INR 1.3. CK 35. Total bilirubin 1.5, AST 30, ALT 12, alkaline phosphatase 76. Troponin negative. Lipase 3465. Amylase 261. Patient was admitted to the [facility] floor and consult with nephrology and GI. Renal ultrasound revealed no hydronephrosis. Moderate abdominal pelvic ascites. Review of Systems Constitutional: Denies chills, Denies fatigue, Denies fever, Denies lethargy, Denies malaise, reports poor appetite, Denies weakness Eyes: denies blurred vision, denies pain Ears, nose, mouth and throat: Denies headache, Denies sore throat Cardiovascular: Denies chest pain, Denies decreased exercise tolerance, Denies dyspnea on exertion, Denies lightheadedness, Denies shortness of breath, Denies syncope Respiratory: Denies cough, Denies cough with sputum, Denies dyspnea, Denies hemoptysis, Denies home oxygen, Denies respiratory infections, Denies wheezing Gastrointestinal: Reports abdominal pain, Denies BRBPR, Denies diarrhea, Denies melena, reports nausea, reports vomiting, reports decreased appetite Genitourinary: Denies dysuria, Denies urinary hesitancy, Denies urinary retention, reports dark urine Musculoskeletal: Denies frequent falls, Denies gait dysfunction, Denies muscle weakness, Denies myalgias Integumentary: Denies pruritus, Denies rash, Denies wounds Neurological: Denies numbness, Denies weakness Psychiatric: Denies anxiety, Denies depression Endocrine: Denies fatigue, Denies weight change Physical Examination Gen: This is a thin 44-year-old male. Patient is resting in bed and appears to be comfortable and in no acute distress. HEENT: Head is atraumatic, normocephalic. Pupils equal, round. Sclerae is anicteric. NECK: Supple. No JVD. No lymphadenopathy. No thyromegaly. LUNGS: Clear to auscultation. No wheezes or rhonchi. No intercostal retractions. HEART: Regular rate and rhythm. No murmur. ABDOMEN: Soft. Distended. Mild Bowel sounds are present. No masses. Epigastric and bilateral upper quadrant tenderness. Large umbilical hernia with varicose veins. EXTREMITIES: No pedal edema. No calf tenderness. NEUROLOGICAL: Patient is awake, alert and oriented x3. Cranial nerves 2 through 12 are grossly intact. Assessment and Plan 1. Acute kidney injury with chronic kidney disease stage III, improving. Consult with nephrology. Renal ultrasound as above. Patient has been on IV fluids at 50 mL per hour which will be discontinued and plan to resume spinal lactulose evening and Lasix this evening unless changed by nephrology. Check urine eosinophil level. Repeat blood work in the morning. 2. Abdominal pain, acute on chronic secondary to acute pancreatitis. Consult with GI. Continue Zofran as needed for nausea. Diet has been advanced to clear liquids. 3. History of alcoholic liver disease with portal hypertension and previous episodes of acute GI bleed with acute blood loss anemia resulting in multiple hospitalizations for GI bleeding from esophageal varices status post banding. Continue Protonix 20 mg twice daily. Continue Lasix, Aldactone. 4. Chronic ascites and scheduled paracentesis weekly, stable. Continue Aldactone and Lasix. 5. Chronic pancytopenia with severe thrombocytopenia secondary to chronic EtOH related bone marrow damage and portal hypertension causing splenic sequestration. 6. Spinal stenosis with peripheral neuropathy. Continue morphine sulfate IR 30 mg every 4 hours as needed. 7. History of tobacco use and dependence. 8. Hypothyroidism. Continue levothyroxine 50 g daily. 9. Recurrent depression. 10. Peripheral neuropathy secondary to alcoholism and spinal stenosis. 11. 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 Continue insulin 24 units daily. astroesophageal reflux disease and GI prophylaxis. Continue Protonix. 12. Severe protein calorie malnutrition with BMI of 18. 13. DVT prophylaxis. No heparin due to thrombocytopenia. SCDs and ANDREEA hose and early ambulation. Patient admitted to the hospital for a minimum of 2 night stay. Discharge plan: Home Impression and plan of care have been directed as dictated by the signing physician. Giovana Kathleen nurse practitioner acting as scribe for signing physician. Past Medical History Past Medical History: Asthma, Diabetes Mellitus, GERD/Reflux, GI Bleed, Hypertension, Liver Disease, Thyroid Disorder Additional Past Medical History / Comment(s): Liver cirrhosis stage 4 portal htn, ETOH abuse, esophageal varicies, upper GI bleed, chronic thrombocytopenia, coagulopathy, pancytopenia, ascities, spinal stenosis: back/leg and feet pain, DDD, chronic back pain, neuropathy bilateral legs/feet, falls, bronchitis, 2010 Guillium [place], chronic pancreatitis, ascites, newly diagnosed diabetic , pulmonary hypertension, thrombocytopenia, patient no longer on pacheco splant list related to high pulmonary hypertension. History of Any Multi-Drug Resistant Organisms: None Reported Past Surgical History: Appendectomy, Heart Catheterization, Joint Replacement Additional Past Surgical History / Comment(s): EGDs, multiple large volume paracentesis, back injections, R thumb reattachment, circumcism, right heart catheterization Past Anesthesia/Blood Transfusion Reactions: No Reported Reaction Additional Past Anesthesia/Blood Transfusion Reaction / Comment(s): Pt has received blood product without reaction. Past Psychological History: Depression Additional Psychological History / Comment(s): Pt is on disability. 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 He uses a cane to ambulate at times. He drives. Smoking Status: Former smoker Past Alcohol Use History: None Reported Additional Past Alcohol Use History / Comment(s): Patient is a smoker of a pack per day for 27 years currently down to a few puffs some days. He states he's used marijuana a couple times to help increase his appetite. He denies any street drug use. He does have history of heavy alcohol use with drinking up to a pint per day for 7 years but then cut down to only drinking an occasional beer and states he has not drank any alcohol now in about a year. He states that he's starting the process of getting on a liver transplant list. Past Drug Use History: Marijuana - Past Family History Father Family Medical History: Unable to Obtain Additional Family Medical History / Comment(s): Pt does not know his father's medical hx. Mother Family Medical History: No Reported History Additional Family Medical History / Comment(s): Mother is healthy. Brother(s) Additional Family Medical History / Comment(s): Patient has 3 brothers and one suffers from alcohol abuse. 2 brothers have no major medical problems. Patient does not have any sisters. Patient is one daughter 12 years old with no major medical problems. Medications and Allergies Home Medications Medication Instructions Recorded Confirmed Type Furosemide [Lasix] 40 mg PO BID 07/11/19 09/06/20 History Pantoprazole Sodium [Protonix] 20 mg PO BID 10/12/19 09/06/20 History Insulin Glargine [Lantus] 24 units SQ DAILY 06/11/20 09/06/20 History Sildenafil [Revatio] 20 mg PO TID 06/11/20 09/06/20 History Levothyroxine Sodium [Synthroid] 50 mcg PO DAILY 08/11/20 09/06/20 History Spironolactone 50 mg PO TID 08/11/20 09/06/20 History Morphine Sulfate Ir [MSIR] 30 mg PO Q4HR PRN 09/04/20 09/06/20 History Insulin Aspart [NovoLOG Flexpen] See Protocol SQ AC-TID 09/06/20 09/06/20 History Allergies Allergy/AdvReac Type Severity Reaction Status Date / Time No Known Allergies Allergy Verified 09/06/20 18:10 Physical Exam Vitals: Vital Signs Temp Pulse Pulse Pulse Resp BP BP 09/07/20 07:00 98.2 F 88 16 103/62 09/07/20 01:35 98.9 F 93 17 97/63 09/06/20 21:14 98.2 F 97 17 105/62 09/06/20 20:33 85 16 114/82 09/06/20 18:20 84 16 100/69 09/06/20 17:28 89 16 102/86 Pulse Ox 09/07/20 07:00 96 09/07/20 01:35 97 09/06/20 21:14 98 09/06/20 20:33 98 09/06/20 18:20 100 09/06/20 17:28 99 Intake and Output 09/06/20 09/07/20 09/07/20 22:59 06:59 14:59 Intake Total 75 600 Balance 75 600 Intake: IV 75 600 Sodium Chloride 0.9% 1, 75 600 000 ml @ 75 mls/hr IV . [id number] [facility] Rx#:[id number] Other: Voiding Method Toilet Toilet # Voids 2 Weight 57.153 kg Results CBC & Chem 7: 09/06/20 17:30 09/07/20 05:48 Labs: Abnormal Lab Results - Last 24 Hours (Table) 09/06/20 09/06/20 09/06/20 Range/Units 17:24 17:24 17:30 RBC 3.48 L (4.30-5.90) m/uL Hgb 9.5 L D (13.0-17.5) gm/dL Hct 27.8 L (39.0-53.0) % RDW 17.3 H (11.5-15.5) % Plt Count 62 L (150-450) k/uL Lymphocytes # 0.3 L (1.0-4.8) k/uL PT 13.2 H (9.0-12.0) sec INR 1.3 H (<1.2) APTT 21.8 L (22.0-30.0) sec Sodium 132 L (137-145) mmol/L BUN 53 H (9-20) mg/dL Creatinine 1.45 H (0.66-1.25) mg/dL Glucose 263 H (74-99) mg/dL Calcium 7.8 L (8.4-10.2) mg/dL Total Bilirubin 1.5 H (0.2-1.3) mg/dL Creatine Kinase 35 L (55-170) U/L Total Protein 5.2 L (6.3-8.2) g/dL Albumin 2.8 L (3.5-5.0) g/dL Amylase 261 H (30-110) U/L Lipase 3465 H (23-300) U/L Thrombosis Risk Factor Assmnt - Choose All That Apply Any of the Below Risk Factors Present?: Yes Each Factor Represents 1 point: Age 41-60 years Other Risk Factors: No Other congenital or acquired thrombophilia - If yes, enter type in comment: No Thrombosis Risk Factor Assessment Total Risk Factor Score: 1 Thrombosis Risk Factor Assessment Level: Low Risk
[2020-09-07 14:25] VITALS: BMI 18.6
[2020-09-07] MEDS: SODIUM CHLORIDE 0.9% 1,000 ML IV SCH ×2 (15:03→17:49)
--- NOTE | 2020-09-07 15:19 | P.CONS ---
History of Present Illness - Reason for Consult Consult date: 09/07/20 Cirrhosis of liver Requesting physician: Anu Garcia - Chief Complaint Abnormal labs, elevated creatinine - History of Present Illness This is a 44-year-old white male with the past medical history of alcoholic liver cirrhosis with portal hypertension, previous GI bleed, hypertension, pulmonary hypertension, gastritis, chronic pancreatitis, chronic back pain, and peripheral neuropathycame to emergency department for abnormal lab values. He was noted to have an outpatient creatinine of 3.13 noted during his paracentesis. He underwent a paracentesis on 09/04/2020 with removal of 2.1 L of fluid. He has been going weekly for paracentesis. 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 He went back about a month ago to have metal stent placed and ended up with acute pancreatitis and was hospitalized. he states he had some change in his diuretics and Lasix he was taking 40 mg daily and Aldactone 50 mg daily. He also underwent a cardiac catheterization at the [facility] and follows with Dr. Irving, which showed he had pulmonary hypertension. He states he is having epigastric pain today, he states that he has been having it ever since he had the stent placed. Also states that he feels like his ascites has been worse since his stent was placed. He denies any nausea or vomiting. Denies any lower extremity swelling.admission labs WBC 5.0, hemoglobin 9.5, hematocrit 27.8, platelet count 62,000, INR 1.3, total bilirubin 1.5, alkaline phosphatase 76, AST 30, ALT 12, amylase 261, lipase 3465, BUN 53, creatinine 1.45. Review of Systems REVIEW OF SYSTEMS: CARDIOPULMONARY: No chest pain or shortness of breath. Gastrointestinal: Epigastric pain. Umbilical hernia. No nausea or vomiting. No hematemesis, coffee-ground emesis. No rectal bleeding, or melena. GENITOURINARY: No dysuria or hematuria. MUSCULOSKELETAL: Reports normal range of motion., Joint pain. SKIN: No rashes. No jaundice. ENDOCRINE: No chills, fevers. No excessive weight gain or loss. No polydipsia or polyuria. PSYCHIATRIC: Unremarkable. NEUROLOGY: No change in mental status. Denies dizziness, headache. ENT: Vision unremarkable. CONSTITUTIONAL: No recent weight loss. No fever, chills, night sweats. Past Medical History Past Medical History: Asthma, Diabetes Mellitus, GERD/Reflux, GI Bleed, Hypertension, Liver Disease, Thyroid Disorder Additional Past Medical History / Comment(s): Liver cirrhosis stage 4 portal htn, ETOH abuse, esophageal varicies, upper GI bleed, chronic thrombocytopenia, coagulopathy, pancytopenia, ascities, spinal stenosis: back/leg and feet pain, DDD, chronic back pain, neuropathy bilateral legs/feet, falls, bronchitis, 2010 Guillium [place], chronic pancreatitis, ascites, newly diagnosed diabetic Feb20 21, pulmonary hypertension, thrombocytopenia, patient no longer on transplant list related to high pulmonary hypertension. History of Any Multi-Drug Resistant Organisms: None Reported Past Surgical History: Appendectomy, Heart Catheterization, Joint Replacement Additional Past Surgical History / Comment(s): EGDs, multiple large volume paracentesis, back injections, R thumb reattachment, circumcism, right heart catheterization Past Anesthesia/Blood Transfusion Reactions: No Reported Reaction Additional Past Anesthesia/Blood Transfusion Reaction / Comm: Pt has received b lood product without reaction. Past Psychological History: Depression Additional Psychological History / Comment(s): Pt is on disability. 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 He uses a cane to ambulate at times. He drives. Smoking Status: Former smoker Past Alcohol Use History: None Reported Additional Past Alcohol Use History / Comment(s): Patient is a smoker of a pack per day for 27 years currently down to a few puffs some days. He states he's used marijuana a couple times to help increase his appetite. He denies any street drug use. He does have history of heavy alcohol use with drinking up to a pint per day for 7 years but then cut down to only drinking an occasional beer and states he has not drank any alcohol now in about a year. He states that he's starting the process of getting on a liver transplant list. Past Drug Use History: Marijuana - Past Family History Father Family Medical History: Unable to Obtain Additional Family Medical History / Comment(s): Pt does not know his father's medical hx. Mother Family Medical History: No Reported History Additional Family Medical History / Comment(s): Mother is healthy. Brother(s) Additional Family Medical History / Comment(s): Patient has 3 brothers and one suffers from alcohol abuse. 2 brothers have no major medical problems. Patient does not have any sisters. Patient is one daughter 12 years old with no major medical problems. Medications and Allergies Home Medications Medication Instructions Recorded Confirmed Type Furosemide [Lasix] 40 mg PO BID 07/11/19 09/06/20 History Pantoprazole Sodium [Protonix] 20 mg PO BID 10/12/19 09/06/20 History Insulin Glargine [Lantus] 24 units SQ DAILY 06/11/20 09/06/20 History Sildenafil [Revatio] 20 mg PO TID 06/11/20 09/06/20 History Levothyroxine Sodium [Synthroid] 50 mcg PO DAILY 08/11/20 09/06/20 History Spironolactone 50 mg PO TID 08/11/20 09/06/20 History Morphine Sulfate Ir [MSIR] 30 mg PO Q4HR PRN 09/04/20 09/06/20 History Insulin Aspart [NovoLOG Flexpen] See Protocol SQ AC-TID 09/06/20 09/06/20 History Allergies Allergy/AdvReac Type Severity Reaction Status Date / Time No Known Allergies Allergy Verified 09/06/20 18:10 Physical Exam Vitals: Vital Signs Temp Pulse Pulse Pulse Resp BP BP 09/07/20 07:00 98.2 F 88 16 103/62 09/07/20 01:35 98.9 F 93 17 97/63 09/06/20 21:14 98.2 F 97 17 105/62 09/06/20 20:33 85 16 114/82 09/06/20 18:20 84 16 100/69 09/06/20 17:28 89 16 102/86 Pulse Ox 09/07/20 07:00 96 09/07/20 01:35 97 09/06/20 21:14 98 09/06/20 20:33 98 09/06/20 18:20 100 09/06/20 17:28 99 Intake and Output 09/06/20 09/07/20 09/07/20 22:59 06:59 14:59 Intake Total 75 600 Balance 75 600 Intake: IV 75 600 Sodium Chloride 0.9% 1, 75 600 000 ml @ 75 mls/hr IV . [id number] [facility] Rx#:[id number] Other: Voiding Method Toilet Toilet # Voids 2 Weight 57.153 kg General appearance: The patient is alert, oriented, appears in no acute distress. HET: Head is normocephalic and atraumatic. Conjunctiva pink. Sclera anicteric. Neck: Supple without lymphadenopathy. Trachea midline. Heart: S1 S2. Regular rate and rhythm. Lungs: Clear to auscultation. Abdomen: Soft, epigastric tenderness, reducible umbilical hernia,nondistended with bowel sounds. No guarding or rigidity. Skin: No rashes. No jaundice. Extremities: Normal skin color and turgor. No pedal edema. Neurological: No focal deficits. Alert and oriented 3.. Results CBC & Chem 7: 09/06/20 17:30 09/07/20 05:48 Labs: Abnormal Lab Results - Last 24 Hours (Table) 09/06/20 09/06/20 09/06/20 Range/Units 17:24 17:24 17:30 RBC 3.48 L (4.30-5.90) m/uL Hgb 9.5 L D (13.0-17.5) gm/dL Hct 27.8 L (39.0-53.0) % RDW 17.3 H (11.5-15.5) % Plt Count 62 L (150-450) k/uL Lymphocytes # 0.3 L (1.0-4.8) k/uL PT 13.2 H (9.0-12.0) sec INR 1.3 H (<1.2) APTT 21.8 L (22.0-30.0) sec Sodium 132 L (137-145) mmol/L BUN 53 H (9-20) mg/dL Creatinine 1.45 H (0.66-1.25) mg/dL Glucose 263 H (74-99) mg/dL Calcium 7.8 L (8.4-10.2) mg/dL Total Bilirubin 1.5 H (0.2-1.3) mg/dL Creatine Kinase 35 L (55-170) U/L Total Protein 5.2 L (6.3-8.2) g/dL Albumin 2.8 L (3.5-5.0) g/dL Amylase 261 H (30-110) U/L Lipase 3465 H (23-300) U/L Assessment and Plan (1) Chronic liver failure Narrative/Plan: 44-year-old male with a long history of alcoholic cirrhosis of the liver and chronic pancreatitis presented to the emergency room with an elevated creatinine. Patient has been getting outpatient paracentesis on a weekly basis. His paracentesis was 2 days ago where they had 2.1 L removed. He has been following with the [facility] for his end-stage liver disease and is trying to get on the transplant list. He recently had biliary stents placed in April of this year, and approximately one month ago had those removed and a m etal stent placed. States following the most recent stent he has been having abdominal pain and was hospitalized there for acute pancreatitis. Recently his vocational psychologist had changed his diuretic therapy and reduced his Lasix to 40 mg daily and Aldactone 50 mg daily. On presentation his BUN was 53 and creatinine 1.45, nephrology is on consult. Current Visit: No Status: Acute Code(s): K72.10 - CHRONIC HEPATIC FAILURE WITHOUT COMA SNOMED Code(s): 454120926 (2) Alcoholic cirrhosis of liver Current Visit: Yes Status: Acute Code(s): K70.30 - ALCOHOLIC CIRRHOSIS OF LIVER WITHOUT ASCITES SNOMED Code(s): 451663042 (3) Chronic pancreatitis Narrative/Plan: patient to present with elevated amylase and lipase, lipase 3465 on presentation. Patient had a biliary stent placed approximately one month ago and states he was hospitalized with acute pancreatitis at the [facility] recently. Current Visit: Yes Status: Acute Code(s): K86.1 - OTHER CHRONIC PANCREATITIS SNOMED Code(s): 769447906 (4) Abdominal pain Current Visit: No Status: Acute Code(s): R10.9 - UNSPECIFIED ABDOMINAL PAIN SNOMED Code(s): 07967324 (5) Ascites Current Visit: No Status: Acute Code(s): R18.8 - OTHER ASCITES SNOMED Code(s): 918997076 (6) Acute pancreatitis Current Visit: No Status: Acute Code(s): K85.90 - ACUTE PANCREATITIS WITHOUT NECROSIS OR INFECTION, UNSP SNOMED Code(s): 653617302 (7) Acute kidney failure Narrative/Plan: Nephrology on consult, he for diuretic management to their services. Current Visit: Yes Status: Acute Code(s): N17.9 - ACUTE KIDNEY FAILURE, UNSPECIFIED SNOMED Code(s): 53459625 (8) Chronic anemia Current Visit: Yes Status: Acute Code(s): D64.9 - ANEMIA, UNSPECIFIED SNOMED Code(s): 987421385 Plan: 1. Continue symptomatic and supportive care 2. Nephrology on consult, defer diuretic management to their service 3. May have clear liquid diet, low sodium 4. Repeat lipase 5. Daily CMP 6. Paracentesis as needed, patient has outpatient paracentesis scheduled for Thursday 7. Pain medications as needed per primary medicine team Thank you for this consultation, we will continue to follow Dr. Lucia Leiva I agree with the dictator's note, documented as a scribe by Janessa Love.
[2020-09-07] MEDS ORDERED: SPIRONOLACTONE 25 MG TAB PO SCH (16:00)
[2020-09-07] MEDS ORDERED: FUROSEMIDE 40 MG TAB PO SCH (16:00)
[2020-09-07 17:03] LABS: Glucose,Whole Blood 253 mg/dL (75-99)
[2020-09-07] MEDS: SILDENAFIL 20 MG TAB PO SCH ×2 (17:50→21:26)
[2020-09-07] MEDS: INSULIN ASPART (NovoLOG) 100 UNIT/ML VIAL SQ SCH ×2 (18:12→21:23)
[2020-09-07 20:28] LABS: Glucose,Whole Blood 116 mg/dL (75-99)
[2020-09-07] MEDS: PANTOPRAZOLE 40 MG TABLET PO SCH (21:26)
--- NOTE | 2020-09-07 21:33 | P.NPCON ---
History of Present Illness - Reason for Consult acute renal failure - History of Present Illness Reason for consult: CASSY HPI: Patient is a 44 y/o M seen for CASSY. Patient states he had blood work done outpat ient was advised to go to the hospital for CASSY. He states that his creatinine was over 3. He has history of liver cirrhsos, alcohol induced and was diagnosed initially in 2011. He gets paracentesis weekly. Last paracentesis was on 09/04/20 and had 2.1 L removed. Follows at [facility] for possible liver transplant. No vomiting or diarrhea. No edema. Takes lasix and aldactone at home. Denies use of NSAIDs. No family hx of renal disease. No fever, chills, cough or shortness or breath. Currently on IVFs and renal functioning is improving. Vital signs: Stable. HEENT: No JVD. Heart: Regular rhythms. Lungs: Clear, no wheezes. Abdomen: Soft, no distension. Ext: No edema. Past Medical History Past Medical History: Asthma, Diabetes Mellitus, GERD/Reflux, GI Bleed, Hy pertension, Liver Disease, Thyroid Disorder Additional Past Medical History / Comment(s): Liver cirrhosis stage 4 portal htn, ETOH abuse, esophageal varicies, upper GI bleed, chronic thrombocytopenia, coagulopathy, pancytopenia, ascities, spinal stenosis: back/leg and feet pain, DDD, chronic back pain, neuropathy bilateral legs/feet, falls, bronchitis, 2010 Guillium [place], chronic pancreatitis, ascites, newly diagnosed diabetic Ast0050, pulmonary hypertension, thrombocytopenia, patient no longer on transplant list related to high pulmonary hypertension. History of Any Multi-Drug Resistant Organisms: None Reported Past Surgical History: Appendectomy, Heart Catheterization, Joint Replacement Additional Past Surgical History / Comment(s): EGDs, multiple large volume paracentesis, back injections, R thumb reattachment, circumcism, right heart catheterization Past Anesthesia/Blood Transfusion Reactions: No Reported Reaction Additional Past Anesthesia/Blood Transfusion Reaction / Comment(s): Pt has received blood product without reaction. Past Psychological History: Depression Additional Psychological History / Comment(s): Pt is on disability. 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 He uses a cane to ambulate at times. He drives. Smoking Status: Former smoker Past Alcohol Use History: None Reported Additional Past Alcohol Use History / Comment(s): Patient is a smoker of a pack per day for 27 years currently down to a few puffs some days. He states he's used marijuana a couple times to help increase his appetite. He denies any street drug use. He does have history of heavy alcohol use with drinking up to a pint per day for 7 years but then cut down to only drinking an occasional beer and states he has not drank any alcohol now in about a year. He states that he's starting the process of getting on a liver transplant list. Past Drug Use History: Marijuana - Past Family History Father Family Medical History: Unable to Obtain Additional Family Medical History / Comment(s): Pt does not know his father's medical hx. Mother Family Medical History: No Reported History Additional Family Medical History / Comment(s): Mother is healthy. Brother(s) Additional Family Medical History / Comment(s): Patient has 3 brothers and one suffers from alcohol abuse. 2 brothers have no major medical problems. Patient does not have any sisters. Patient is one daughter 12 years old with no major medical problems. Medications and Allergies Home Medications Medication Instructions Recorded Confirmed Type Furosemide [Lasix] 40 mg PO BID 07/11/19 09/06/20 History Pantoprazole Sodium [Protonix] 20 mg PO BID 10/12/19 09/06/20 History Insulin Glargine [Lantus] 24 units SQ DAILY 06/11/20 09/06/20 History Sildenafil [Revatio] 20 mg PO TID 06/11/20 09/06/20 History Levothyroxine Sodium [Synthroid] 50 mcg PO DAILY 08/11/20 09/06/20 History Spironolactone 50 mg PO TID 08/11/20 09/06/20 History Morphine Sulfate Ir [MSIR] 30 mg PO Q4HR PRN 09/04/20 09/06/20 History Insulin Aspart [NovoLOG Flexpen] See Protocol SQ AC-TID 09/06/20 09/06/20 History Allergies Allergy/AdvReac Type Severity Reaction Status Date / Time No Known Allergies Allergy Verified 09/06/20 18:10 Physical Exam Vitals: Vital Signs Temp Pulse Pulse Resp BP Pulse Ox 09/07/20 18:56 98.1 F 92 16 100/72 98 09/07/20 14:52 98.3 F 106 H 16 95/61 95 09/07/20 13:34 87 131/60 96 09/07/20 12:58 82 147/82 96 09/07/20 07:00 98.2 F 88 16 103/62 96 09/07/20 01:35 98.9 F 93 17 97/63 97 Intake and Output 09/07/20 09/07/20 09/07/20 06:59 14:59 22:59 Intake Total 600 Balance 600 Intake: IV 600 Sodium Chloride 0.9% 1, 600 000 ml @ 50 mls/hr IV . Q20H [facility] Rx#:[id number] Other: Voiding Method Toilet # Voids 2 3 Weight 57.153 kg Results - Lab Results Most recent lab results Calcium 7.2 mg/dL (8.7-10.3) L 09/07/20 05:48 09/06/20 17:30 09/07/20 05:48 Assessment and Plan Plan: Assessment: 1. CASSY, mostly pre-renal, improving with IV hydration. Creatinine was 1.45 on admission and is down to 1.1 today. UA benign. No evidence of hydronephrosis noted on renal ultrasound. 2. Liver cirrhosis, alcohol-induced. 3. Hypokalemia from diuretics. 4. Pulmonary hypertension. 5. Diabetes. Plan: Decrease rate of normal saline to 50 cc/hr. Continue to hold diuretics. Replace potassium. Avoid nephrotoxins. Continue to monitor renal function and urine output. Thank you for the consultation. I will continue to follow the patient with you during his hospital stay.
[2020-09-08] MEDS: MORPHINE SULFATE 4 MG/ML SYRINGE IV PRN ×3 (01:21→09:46)
[2020-09-08] MEDS ORDERED: LEVOTHYROXINE 50 MCG TAB PO SCH (06:30)
[2020-09-08] MEDS ORDERED: INSULIN DETEMIR (LEVEMIR) 100 UNIT/ML SYR SQ SCH (07:00)
[2020-09-08 07:10] LABS: ALT 11 U/L (4-49); AST 27 U/L (17-59); African American GFR (CKD) >90 (>60 ml/min/1.73 sqM); Albumin 2.4 g/dL (3.5-5.0); Alkaline Phosphatase 60 U/L (38-126); Anion Gap 6 mmol/L; Blood Urea Nitrogen 37 mg/dL (9-20); Calcium 7.7 mg/dL (8.4-10.2); Carbon Dioxide 23 mmol/L (22-30); Chloride 105 mmol/L (98-107); Globulin 2.4 g/dL; Glucose 148 mg/dL (74-99); Lipase 1031 U/L (23-300); Non-African American GFR(CKD) >90 (>60 ml/min/1.73 sqM); Potassium 3.6 mmol/L (3.5-5.1); Sodium 134 mmol/L (137-145); Total Bilirubin 1.7 mg/dL (0.2-1.3); Total Protein 4.8 g/dL (6.3-8.2)
[2020-09-08 07:28] LABS: Glucose,Whole Blood 190 mg/dL (75-99)
[2020-09-08] MEDS: INSULIN ASPART (NovoLOG) 100 UNIT/ML VIAL SQ SCH (07:50)
[2020-09-08] MEDS: SILDENAFIL 20 MG TAB PO SCH (07:51)
[2020-09-08] MEDS: PANTOPRAZOLE 40 MG TABLET PO SCH (07:51)
[2020-09-08 07:57] VITALS: BP 94/59; PULSE 89; RESP 18; TEMP 98
[2020-09-08] MEDS ORDERED: POTASSIUM CHLORIDE ER 20 MEQ TAB.ER PO STA (10:40)
--- NOTE | 2020-09-08 10:41 | P.PN ---
Subjective Patient is seen in follow-up for acute kidney injury. Renal function continues to improve. Oral intake fair. Good urine output. No vomiting or diarrhea. Does feel nauseous at times. Vital signs are stable. General: The patient appeared well nourished and normally developed. HEENT: Head exam is unremarkable. Neck is without jugular venous distension. LUNGS: Breath sounds decreased. HEART: Rate and Rhythm are regular. ABDOMEN: Soft, distention noted. EXTREMITITES: No edema. Objective - Vital Signs Vital signs: Vital Signs Temp 98.0 F 09/08/20 07:00 Pulse 89 09/08/20 07:00 Resp 18 09/08/20 07:00 BP 94/59 09/08/20 07:00 Pulse Ox 97 09/08/20 07:00 Intake & Output 09/07/20 09/08/20 09/08/20 18:59 06:59 18:59 Intake Total 800 Balance 800 Weight 57.153 kg Intake: IV 800 Sodium Chloride 0.9% 1, 800 000 ml @ 50 mls/hr IV . Q20H [facility] Rx#:[id number] Other: Voiding Method Toilet # Voids 3 - Labs CBC & Chem 7: 09/06/20 17:30 09/08/20 06:09 Labs: Abnormal Lab Results - Last 24 Hours (Table) 09/07/20 09/07/20 09/07/20 Range/Units 05:48 12:21 17:01 Sodium (137-145) mmol/L BUN (9-20) mg/dL Glucose (74-99) mg/dL POC Glucose (mg/dL) 197 H 253 H (75-99) mg/dL Calcium (8.4-10.2) mg/dL Total Bilirubin (0.2-1.3) mg/dL Total Protein (6.3-8.2) g/dL Albumin (3.5-5.0) g/dL Lipase 471 H (14-60) U/L 09/07/20 09/08/20 09/08/20 Range/Units 20:26 06:09 07:27 Sodium 134 L (137-145) mmol/L BUN 37 H (9-20) mg/dL Glucose 148 H (74-99) mg/dL POC Glucose (mg/dL) 116 H 190 H (75-99) mg/dL Calcium 7.7 L (8.4-10.2) mg/dL Total Bilirubin 1.7 H (0.2-1.3) mg/dL Total Protein 4.8 L (6.3-8.2) g/dL Albumin 2.4 L (3.5-5.0) g/dL Lipase 1031 H (14-60) U/L Assessment and Plan Plan: Assessment: 1. CASSY, mostly pre-renal, improving with IV hydration. Creatinine was 1.45 on admission and is down to 0.94 today. UA benign. No evidence of hydronephrosis noted on renal ultrasound. 2. Liver cirrhosis, alcohol-induced. 3. Hypokalemia from diuretics. Better. 4. Pulmonary hypertension. 5. Diabetes. Plan: Hep-Lock IV fluids. Resume Lasix 20 mg once daily and Aldactone 25 mg twice daily starting tomorrow. Replace potassium. Avoid nephrotoxins. Continue to monitor renal function and urine output. Anticipate discharge soon. Repeat BMP magnesium level 2-3 days post discharge. Follow up outpatient in 1 week. Continue with weekly paracentesis with albumin.
--- NOTE | 2020-09-08 13:27 | P.DS ---
Providers Date of admission: 09/07/20 09:57 Attending physician: Anu Garcia Consults: 09/06/20 19:35 Consult Physician Stat Consulting Provider: Finesse Murillo Consult Reason/Comments: acute kidney injury Do you want consulting provider notified?: Yes Consult Physician Stat Consulting Provider: Scot Augustine Consult Reason/Comments: cirrhosis Do you want consulting provider notified?: Yes [facility] Course: This is a 44-year-old male patient of Dr. Sarmad Linn. He has history of alcohol liver cirrhosis with portal hypertension and previous GI bleeding, hypertension and gastritis, pancreatitis, spinal stenosis and peripheral neuropathy. Patient also has chronic back pain and was under the care of Dr. Lagunas but violated pain contract and no longer seen by pain management. He is also known to Dr. Ghazal Leiva from previous EGDs in the past finding gastritis consistent with portal gastropathy but no gastric or esophageal varices or active bleeding. He has had multipe admissions for acute GI bleed. He had admission for right leg abscess requiring I&D in December 2017. Patient has had multiple admissions for acute pancreatitis with worsening ascites. Most recently, hospitalizations have been for ascites and therapeutic paracentesis. Patient has been following with [facility] for liver failure and evaluation for liver transplant and was recently hospitalized last week from Thursday through Thursday. He had biliary stents placed in April at [facility]. He states that he was called by the nurse from [facility] that his lab work was abnormal with creatinine of 3.1 and he was instructed to come in the hospital for further evaluation. He states about 1-1/2 months ago she Did have a change in his medications and Aldactone was decreased to 50 mg per day but he was kept on Lasix. He states this was related to his renal function. He states he sometimes has lightheadedness. He is on lactulose regularly and usually having 3 bowel movements per day. He states he is not eating very much due to abdominal pain. He has noticed that his urine is less volume and is a dark yellow or orange color. He had a paracentesis done on 09/04 at [facility] and 2.1 L of serous fluid were removed. He is on a every week schedule for paracentesis. He states his last alcohol intake was in 2016. Patient came into [facility] emergency center for evaluation. He was afebrile, heart rate 89, blood pressure 102/86, pulse ox 99% on room air. WBC 5.0, hemoglobin 9.5, platelet count 62. Sodium 132, potassium 3.9, chloride 99, CO2 25, BUN 53 and creatinine 1.45. Blood sugar 263. Lactic acid 1.4. INR 1.3. CK 35. Total bilirubin 1.5, AST 30, ALT 12, alkaline phosphat ase 76. Troponin negative. Lipase 3465. Amylase 261. [facility] with [facility] and GI. Renal ultrasound revealed no hydronephrosis. Moderate abdominal pelvic ascites. 09/08: Patient, resting comfortably in bed, lipase and kidney function has returned to normal limits. Patient states that he is feeling much better compared to yesterday. He is anxious to go home. Discharge diagnosis: 1. Acute kidney injury with chronic kidney disease stage III, improving. 2. Abdominal pain, acute on chronic secondary to acute pancreatitis. 3. History of alcoholic liver disease with portal hypertension and previous episodes of acute GI bleed with acute blood loss anemia 4. Chronic ascites and scheduled paracentesis weekly, stable. 5. Chronic pancytopenia with severe thrombocytopenia secondary to chronic EtOH related bone marrow damage and portal hypertension causing splenic sequestration. 6. Spinal stenosis with peripheral neuropathy. 7. History of tobacco use and dependence. 8. Hypothyroidism. 9. Recurrent depression. 10. Peripheral neuropathy secondary to alcoholism and spinal stenosis. 11. 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 12. Severe protein calorie malnutrition with BMI of 18. Discharge disposition: Home Impression and plan of care have been directed as dictated by the signing physician. Cassandra Riddle nurse practitioner acting as scribe for signing physician Patient Condition at Discharge: Stable Plan - Discharge Summary Discharge Rx Participant: No New Discharge Prescriptions: Continue Pantoprazole Sodium [Protonix] 20 mg PO BID Insulin Glargine [Lantus] 24 units SQ DAILY Levothyroxine Sodium [Synthroid] 50 mcg PO DAILY Morphine Sulfate Ir [MSIR] 30 mg PO Q4HR PRN PRN Reason: Pain Sildenafil [Revatio] 20 mg PO TID Insulin Aspart [NovoLOG Flexpen] See Protocol SQ AC-TID Changed Furosemide [Lasix] 20 mg PO DAILY #0 Spironolactone 25 mg PO DAILY #0 Discharge Medication List Pantoprazole Sodium [Protonix] 20 mg PO BID 10/12/19 [History] Insulin Glargine [Lantus] 24 units SQ DAILY 06/11/20 [History] Sildenafil [Revatio] 20 mg PO TID 06/11/20 [History] Levothyroxine Sodium [Synthroid] 50 mcg PO DAILY 08/11/20 [History] Morphine Sulfate Ir [MSIR] 30 mg PO Q4HR PRN 09/04/20 [History] Insulin Aspart [NovoLOG Flexpen] See Protocol SQ AC-TID 09/06/20 [History] Furosemide [Lasix] 20 mg PO DAILY #0 09/08/20 [Rx] Spironolactone 25 mg PO DAILY #0 09/08/20 [Rx] Follow up Appointment(s)/Referral(s): Pablo Linn MD [Primary Care Provider] - 1-2 days Ambulatory/Diagnostic Orders: Complete Blood Count w/diff [LAB.AMB] Location: None Selected Comprehensive Metabolic Panel [LAB.AMB] Location: None Selected Patient Instructions/Handouts: Pancreatitis (GEN), Cirrhosis (GEN), Ascites (GEN) Activity/Diet/Wound Care/Special Instructions: lasix 20 mg daily Spirolactone 25 mg daily out pt lab work on Thursday please call for appointments with pcp Dr Teresa Linn On thursday and at [facility] as needed Discharge Disposition: HOME SELF-CARE
== END 2020-09-08 11:21 | disposition home or self-care (01) | DRG 438 ==
LOC: EC 15:50 → 6NMEDSUR 18:35 → OBSVTOIN 09-07 09:57
PROVIDERS: ADMIT Family Medicine; ATTEND Family Medicine
DX: K85.90 Acute pancreatitis without necrosis or infection, unspecified (principal); E43 Unspecified severe protein-calorie malnutrition; K76.6 Portal hypertension; D61.818 Other pancytopenia; N17.9 Acute kidney failure, unspecified; F33.9 Major depressive disorder, recurrent, unspecified; Z68.1 Body mass index [BMI] 19.9 or less, adult; K70.31 Alcoholic cirrhosis of liver with ascites; K86.1 Other chronic pancreatitis; G89.29 Other chronic pain; E03.9 Hypothyroidism, unspecified; E87.6 Hypokalemia; F10.20 Alcohol dependence, uncomplicated; N18.30 Chronic kidney disease, stage 3 unspecified; I12.9 Hypertensive chronic kidney disease with stage 1 through stage 4 chronic kidney disease, or unspecified chronic kidney disease; E08.22 Diabetes mellitus due to underlying condition with diabetic chronic kidney disease; K42.9 Umbilical hernia without obstruction or gangrene; M48.00 Spinal stenosis, site unspecified; K72.10 Chronic hepatic failure without coma; T50.2X5A Adverse effect of carbonic-anhydrase inhibitors, benzothiadiazides and other diuretics, initial encounter; J45.909 Unspecified asthma, uncomplicated; I27.20 Pulmonary hypertension, unspecified; G62.1 Alcoholic polyneuropathy; F17.200 Nicotine dependence, unspecified, uncomplicated; K21.9 Gastro-esophageal reflux disease without esophagitis; G62.9 Polyneuropathy, unspecified; Z79.890 Hormone replacement therapy; Z79.4 Long term (current) use of insulin; Z79.899 Other long term (current) drug therapy
CPT/HCPCS: 36415; 74018; 76770; 80048; 80053; 81003; 82150; 82550; 83605; 83690; 84484; 85025; 85610; 85730; 96361; 96374; 99284

== ENCOUNTER 2020-09-10 12:00 | Day surgery (SDC) | payer MEDICARE ==
[2020-09-10 12:44] LABS: HCT 32.3 % (39.0-53.0); HGB 10.9 gm/dL (13.0-17.5); MCH 27.7 pg (25.0-35.0); MCHC 33.7 g/dL (31.0-37.0); MCV 82.1 fL (80.0-100.0); RBC 3.93 m/uL (4.30-5.90); WBC 6.8 k/uL (3.8-10.6)
[2020-09-10 12:45] LABS: Anisocytosis Slight; Basophils % (A) 0 %; Eosinophils # (A) 0.1 k/uL (0-0.7); Eosinophils % (A) 1 %; Hypochromasia Slight; Lymphocytes # (A) 0.3 k/uL (1.0-4.8); Lymphocytes % (A) 4 %; Mean Platelet Volume 8.3; Monocytes # (A) 0.3 k/uL (0-1.0); Monocytes % (A) 5 %; Neutrophils % (A) 89 %
[2020-09-10 12:46] VITALS: TEMP 98.6
[2020-09-10 13:01] LABS: Platelet Count 54 k/uL (150-450)
[2020-09-10 13:04] LABS: ALT 16 U/L (4-49); AST 33 U/L (17-59); African American GFR (CKD) >90 (>60 ml/min/1.73 sqM); Albumin 3.1 g/dL (3.5-5.0); Alkaline Phosphatase 79 U/L (38-126); Anion Gap 9 mmol/L; Blood Urea Nitrogen 37 mg/dL (9-20); Calcium 8.3 mg/dL (8.4-10.2); Carbon Dioxide 23 mmol/L (22-30); Chloride 102 mmol/L (98-107); Glucose 203 mg/dL (74-99); Non-African American GFR(CKD) 78 (>60 ml/min/1.73 sqM); Sodium 134 mmol/L (137-145); Total Bilirubin 1.4 mg/dL (0.2-1.3); Total Protein 5.9 g/dL (6.3-8.2)
[2020-09-10 13:23] LABS: INR 1.3 (<1.2); Prothrombin Time 13.1 sec (9.0-12.0)
[2020-09-10] MEDS: ALBUMIN HUMAN 25% 50 ML in EMPTY BAG 1 BAG IVPB SCH ×2 (14:35→14:43)
[2020-09-10 15:20] VITALS: BP 96/65; PULSE 89; RESP 16
--- NOTE | 2020-09-10 16:03 | US ---
EXAMINATION TYPE: US paracentesis abd w/image DATE OF EXAM: 09/10/2020 CLINICAL HISTORY: Ascites COMPARISON: 09/04/2020 TONGUE STITCHER: Dr. Luz Shelton PROCEDURE: Preprocedure preliminary ultrasound imaging demonstrates large volume ascites. The procedure was discussed with the patient. The risks, complications, benefits, and alternatives we re discussed and any questions were answered. Informed consent was obtained. The patient was placed s upine on the ultrasound table and prepped and draped in the usual sterile fashion. All elements of maximal barrier technique were utilized. Under ultrasound guidance, access into the right lower quadrant was obtained with a 5 Filipino one-step centesis catheter. Approximately 5.9 liters of clear serous fluid was removed. Catheter was removed and sterile bandage was applied. The patient was stable throughout the procedure and remained stable upon discharge from Department of Radiology. IMPRESSION: Successful ultrasound-guided paracentesis, with removal of 5.9 liters of clear serous fluid.
== END 2020-09-10 15:22 | disposition home or self-care (01) ==
LOC: RADPROMAIN 12:00
PROVIDERS: ATTEND Internal Medicine Gastroenterology
DX: R18.8 Other ascites (principal)
CPT/HCPCS: 80053; 85025; 85610; 36415; 49083; P9047

== ENCOUNTER 2020-09-17 11:57 | Day surgery (SDC) | payer MEDICARE ==
[~2020-09-17 11:57] MED LIST changes: +ALBUMIN HUMAN 25% 50 ML in EMPTY BAG 1 BAG IVPB SCH; -DEXAMETHASONE SOD PHOSPHATE 10 MG/ML 1 ML VIAL IV ONE; -HYDROmorphone 0.5 MG/0.5 ML SYRINGE IVP PRN; -LACTATED RINGERS 1,000 ML IV SCH; -LIDOCAINE 1% 20 ML VIAL (10MG/ML) FOR IV START INTRADERMA PRN; -ONDANSETRON 4 MG/2 ML VIAL IVP ONE; -fentaNYL (PF) 50 MCG/ML 2 ML AMP IV PRN
[2020-09-17 12:31] VITALS: BP 80/53; PULSE 101; RESP 16; TEMP 99.2
[2020-09-17 12:39] LABS: Mean Platelet Volume 7.9
[2020-09-17 12:41] LABS: Platelet Count 53 k/uL (150-450)
[2020-09-17 12:58] LABS: INR 1.3 (<1.2); Prothrombin Time 13.4 sec (9.0-12.0)
== END 2020-09-17 13:05 | disposition home or self-care (01) ==
LOC: RADPROMAIN 11:57
PROVIDERS: ATTEND Internal Medicine Gastroenterology
DX: R18.8 Other ascites (principal); Z53.09 Procedure and treatment not carried out because of other contraindication
CPT/HCPCS: 36415; 82565; 82947; 85049; 85610

== ENCOUNTER 2020-09-17 12:51 | Observation (INO) | payer MEDICARE ==
[2020-09-17 13:00] VITALS: RESP 18; TEMP 99.4
[2020-09-17] MEDS ORDERED: SODIUM CHLORIDE 0.9% 500 ML 500 ML IV ONE (13:34)
[2020-09-17] MEDS ORDERED: SODIUM CHLORIDE 0.9% 1,000 ML IV ONE ×2 (13:34→16:12)
--- NOTE | 2020-09-17 13:48 | ED ---
General Adult HPI - General Chief complaint: Weakness Stated complaint: Low BP Time Seen by Provider: 09/17/20 13:00 Source: patient, RN notes reviewed, old records reviewed Mode of arrival: EMS - History of Present Illness Initial comments: This is a 44-year-old male presents emergency Department with a past medical history significant for liver failure. Patient has ascites was supposed to get a drink today but his blood pressure was too low so they sent to the emergency department. Patient states he has quite a bit of pain in his blood pressure always runs a little low and he used to be on Midrin but they took him off recently. Patient is complaining of abdominal pain but he states is chronic but he doesn't have any medicine at home at this time because he ran out. Patient denies any vomiting but he is mildly nauseated. Patient denies chest pain or difficulty breathing or shortness of breath per patient denies any recent fever chills. - Related Data Home Medications Medication Instructions Recorded Confirmed Pantoprazole Sodium [Protonix] 20 mg PO BID 10/12/19 09/17/20 Insulin Glargine [Lantus] 24 units SQ DAILY 06/11/20 09/17/20 Sildenafil [Revatio] 20 mg PO TID 06/11/20 09/17/20 Levothyroxine Sodium [Synthroid] 50 mcg PO DAILY 08/11/20 09/17/20 Insulin Aspart [NovoLOG Flexpen] See Protocol SQ AC-TID 09/06/20 09/17/20 Previous Rx's Medication Instructions Recorded Furosemide [Lasix] 20 mg PO DAILY #0 09/08/20 Spironolactone 25 mg PO DAILY #0 09/08/20 Allergies Allergy/AdvReac Type Severity Reaction Status Date / Time No Known Allergies Allergy Verified 09/17/20 13:19 Review of Systems ROS Statement: Those systems with pertinent positive or pertinent negative responses have been documented in the HPI. ROS Other: All systems not noted in ROS Statement are negative. Past Medical History Past Medical History: Asthma, Diabetes Mellitus, GERD/Reflux, GI Bleed, Hypertension, Liver Disease, Thyroid Disorder Additional Past Medical History / Comment(s): Liver cirrhosis stage 4 portal htn, ETOH abuse, esophageal varicies, upper GI bleed, chronic thrombocytopenia, coagulopathy, pancytopenia, ascities, spinal stenosis: back/leg and feet pain, DDD, chronic back pain, neuropathy bilateral legs/feet, falls, bronchitis, 2010 Guillium [place], chronic pancreatitis, ascites, newly diagnosed diabetic [id number], pulmonary hypertension, thrombocytopenia, patient no longer on transplant list related to high pulmonary hypertension. History of Any Multi-Drug Resistant Organisms: None Reported Past Surgical History: Appendectomy, Heart Catheterization, Joint Replacement Additional Past Surgical History / Comment(s): EGDs, multiple large volume paracentesis, back injections, R thumb reattachment, circumcism, right heart cat heterization Past Anesthesia/Blood Transfusion Reactions: No Reported Reaction Additional Past Anesthesia/Blood Transfusion Reaction / Comment(s): Pt has received blood product without reaction. Past Psychological History: Depression Smoking Status: Former smoker - Past Family History Father Family Medical History: Unable to Obtain Additional Family Medical History / Comment(s): Pt does not know his father's medical hx. Mother Family Medical History: No Reported History Additional Family Medical History / Comment(s): Mother is healthy. Brother(s) Additional Family Medical History / Comment(s): Patient has 3 brothers and one suffers from alcohol abuse. 2 brothers have no major medical problems. Patient does not have any sisters. Patient is one daughter 12 years old with no major medical problems. General Exam - General Exam Comments Initial Comments: GENERAL: Patient is well-developed and well-nourished. Patient is nontoxic and well- hydrated and is in mild distress. ENT: Neck is soft and supple. No significant lymphadenopathy is noted. Oropharynx is clear. Moist mucous membranes. Neck has full range of motion without eliciting any pain. EYES: The sclera were anicteric and conjunctiva were pink and moist. Extraocular movements were intact and pupils were equal round and reactive to light. Eyelids were unremarkable. PULMONARY: Unlabored respirations. Good breath sounds bilaterally. No audible rales rhonchi or wheezing was noted. CARDIOVASCULAR: There is a regular rate and rhythm without any murmurs gallops or rubs. ABDOMEN: Patient has a distended abdomen consistent with ascites SKIN: Skin is clear with no lesions or rashes and otherwise unremarkable. NEUROLOGIC: Patient is alert and oriented x3. Cranial nerves II through XII are grossly intact. Motor and sensory are also intact. Normal speech, volume and content. Symmetrical smile. MUSCULOSKELETAL: Normal extremities with adequate strength and full range of motion. No lower extremity swelling or edema. No calf tenderness. LYMPHATICS: No significant lymphadenopathy is noted PSYCHIATRIC: Normal psychiatric evaluation. Course Vital Signs 09/17/20 09/17/20 12:55 16:08 Temperature 99.4 F Pulse Rate 97 102 H Respiratory 18 18 Rate Blood Pressure 102/70 108/75 O2 Sat by Pulse 100 100 Oximetry Medical Decision Making - Medical Decision Making EKG shows normal sinus rhythm at 95 bpm OH interval 226 QRS is 78 QT interval 372 QTC is 467. Patient's EKG shows no ST segment patient depression. Patient received a liter and half of fluid because of the low blood pressure. He maintained a systolic blood pressure in the low 100s. Patient continued to have chronic pain I did give the patient a half Dilaudid and some droperidol. I spoke with Dr. Bateman he agreed to admit the patient admitted the patient I consulted radiology - Lab Data Result diagrams: 09/17/20 13:59 09/17/20 13:59 Lab Results 09/17/20 09/17/20 Range/Units 13:59 13:59 WBC 6.7 (3.8-10.6) k/uL RBC 3.68 L (4.30-5.90) m/uL Hgb 9.6 L (13.0-17.5) gm/dL Hct 30.0 L (39.0-53.0) % MCV 81.4 (80.0-100.0) fL MCH 26.1 (25.0-35.0) pg MCHC 32.0 (31.0-37.0) g/dL RDW 17.8 H (11.5-15.5) % Plt Count 44 L (150-450) k/uL MPV 9.2 Neutrophils % 88 % Lymphocytes % 3 % Monocytes % 7 % Eosinophils % 0 % Basophils % 0 % Neutrophils # 5.9 (1.3-7.7) k/uL Lymphocytes # 0.2 L (1.0-4.8) k/uL Monocytes # 0.5 (0-1.0) k/uL Eosinophils # 0.0 (0-0.7) k/uL Basophils # 0.0 (0-0.2) k/uL Anisocytosis Slight Microcytosis Slight Sodium 128 L (137-145) mmol/L Potassium 4.7 (3.5-5.1) mmol/L Chloride 102 (98-107) mmol/L Carbon Dioxide 19 L (22-30) mmol/L Anion Gap 7 mmol/L BUN 42 H (9-20) mg/dL Creatinine 1.20 (0.66-1.25) mg/dL Est GFR (CKD-EPI)AfAm 85 (>60 ml/min/1.73 sqM) Est GFR (CKD-EPI)NonAf 73 (>60 ml/min/1.73 sqM) Glucose 188 H (74-99) mg/dL Calcium 8.0 L (8.4-10.2) mg/dL Total Bilirubin 1.5 H (0.2-1.3) mg/dL AST 29 (17-59) U/L ALT 16 (4-49) U/L Alkaline Phosphatase 73 (38-126) U/L Total Protein 5.3 L (6.3-8.2) g/dL Albumin 2.5 L (3.5-5.0) g/dL Amylase 360 H* (30-110) U/L Lipase 2556 H (23-300) U/L Disposition Clinical Impression: Ascites, Chronic abdominal pain, Hypotension Disposition: ADMITTED IP TO THIS HOSP Referrals: Pablo Linn MD [Primary Care Provider] - 1-2 days Time of Disposition: 16:12
[2020-09-17 14:06] LABS: Anisocytosis Slight; Basophils % (A) 0 %; Eosinophils % (A) 0 %; HGB 9.6 gm/dL (13.0-17.5); Lymphocytes # (A) 0.2 k/uL (1.0-4.8); Lymphocytes % (A) 3 %; MCH 26.1 pg (25.0-35.0); MCV 81.4 fL (80.0-100.0); Mean Platelet Volume 9.2; Microcytosis Slight; Monocytes # (A) 0.5 k/uL (0-1.0); Monocytes % (A) 7 %; Neutrophils # (A) 5.9 k/uL (1.3-7.7); Neutrophils % (A) 88 %; RBC 3.68 m/uL (4.30-5.90); RDW 17.8 % (11.5-15.5); WBC 6.7 k/uL (3.8-10.6)
[2020-09-17 14:28] LABS: Albumin 2.5 g/dL (3.5-5.0); Platelet Count 44 k/uL (150-450); Potassium 4.7 mmol/L (3.5-5.1); Total Bilirubin 1.5 mg/dL (0.2-1.3); Total Protein 5.3 g/dL (6.3-8.2)
[2020-09-17] MEDS ORDERED: HYDROmorphone 0.5 MG/0.5 ML SYRINGE IVP STA (16:11)
[2020-09-17 17:43] VITALS: BP 111/77; PULSE 113
--- NOTE | 2020-09-18 11:34 | P.HPIM ---
History of Present Illness H&P Date: 09/26/20 History of Present Illness: This is a 44-year-old male patient of Dr. Sarmad Linn. He has history of alcohol liver cirrhosis with portal hypertension and previous GI bleeding, hypertension and gastritis, pancreatitis, spinal stenosis and peripheral neuropathy. Patient also has chronic back pain and was under the care of Dr. Lagunas but violated pain contract and no longer seen by pain management. He is also known to Dr. Ghazal Leiva from previous EGDs in the past finding gastritis consistent with portal gastropathy but no gastric or esophageal varices or active bleeding. He has had multipe admissions for acute GI bleed. He had admission for right leg abscess requiring I&D in December 2017. Patient has had multiple admissions for acute pancreatitis with worsening ascites. Most recently, hospitalizations have been for ascites and therapeutic paracentesis. Patient has been following with [facility] for liver failure and evaluation for liver transplant and was recently hospitalized last week for pancreatitis with worsening abdominal pain require paracentesis has done well ended up back home. Patient was supposed to come to the radiology department for arrangement for paracentesis which has been doing weekly lately. Found to have extremely hypertension with a blood pressure in the 80s over 50 was sent to the emergency department apartment hydrated initially will be hospitalized to be seen by Gastro and radiology for paracentesis tomorrow. Patient was seen and evaluated his blood pressure become 105-110 had quite distended abdomen his asking to have his paracentesis done today which was passed 5:00 radiology artery to done for today I explained to him that will be arranged for tomorrow morning patient to be kept on hydration for now and in management. He had half milligram of Dilaudid and was asking for accelerated ti tration to control his pain which his blood pressure remained quite bit low at the time explained to him we will take her time as well as a blood pressure is well controlled with try to control his pain as soon as we can do to be patient. Patient apparently get upset and angry and shortly after I seen him in the leaving the hospital AMA. Review of Systems Constitutional: Denies chills, Denies fatigue, Denies fever, Denies lethargy, Denies malaise, reports poor appetite, Denies weakness Eyes: denies blurred vision, denies pain Ears, nose, mouth and throat: Denies headache, Denies sore throat Cardiovascular: Denies chest pain, Denies decreased exercise tolerance, Denies dyspnea on exertion, Denies lightheadedness, Denies shortness of breath, Denies syncope Respiratory: Denies cough, Denies cough with sputum, Denies dyspnea, Denies hemoptysis, Denies home oxygen, Denies respiratory infections, Denies wheezing Gastrointestinal: Reports abdominal pain, Denies BRBPR, Denies diarrhea, Denies melena, reports nausea, reports vomiting, reports decreased appetite Genitourinary: Denies dysuria, Denies urinary hesitancy, Denies urinary retention, reports dark urine Musculoskeletal: Denies frequent falls, Denies gait dysfunction, Denies muscle weakness, Denies myalgias Integumentary: Denies pruritus, Denies rash, Denies wounds Neurological: Denies numbness, Denies weakness Psychiatric: Denies anxiety, Denies depression Endocrine: Denies fatigue, Denies weight change Physical Examination Gen: This is a thin 44-year-old male. Patient is resting in bed and appears to be comfortable and in no acute distress. HEENT: Head is atraumatic, normocephalic. Pupils equal, round. Sclerae is anicteric. NECK: Supple. No JVD. No lymphadenopathy. No thyromegaly. LUNGS: Clear to auscultation. No wheezes or rhonchi. No intercostal retractions . HEART: Regular rate and rhythm. No murmur. ABDOMEN: Soft. Distended. Mild Bowel sounds are present. No masses. Epigastric and bilateral upper quadrant tenderness. Large umbilical hernia with varicose veins. With large ascites EXTREMITIES: No pedal edema. No calf tenderness. NEUROLOGICAL: Patient is awake, alert and oriented x3. Cranial nerves 2 through 12 are grossly intact. Assessment and Plan 1. Severe Hypotension: Combination of his advanced liver failure along with intra-cellular dehydration related to the severity of his ascites and current condition. Patient be hydrated for now if needed vasopressor Be started. 1. Abdominal pain, acute on chronic secondary chronic pancreatitis. Consult with GI. Continue Zofran as needed for nausea. Diet has been advanced to clear liquids. 2. Chronic ascites and scheduled paracentesis weekly, stable. Continue Aldactone and Lasix. Paracentesis will be arranged for tomorrow. 3. History of alcoholic liver disease with portal hypertension and previous episodes of acute GI bleed with acute blood loss anemia resulting in multiple hospitalizations for GI bleeding from esophageal varices status post banding. Continue Protonix 20 mg twice daily. Continue Lasix, Aldactone. 4. Acute kidney injury with chronic kidney disease stage III, improving. Consult with nephrology. Renal ultrasound as above. Patient has been on IV fluids at 50 mL per hour which will be discontinued and plan to resume spinal lactulose evening and Lasix this evening unless changed by nephrology. Check urine eosinophil level. Repeat blood work in the morning. 5. Chronic pancytopenia with severe thrombocytopenia secondary to chronic EtOH related bone marrow damage and portal hypertension causing splenic sequestration. 6. Spinal stenosis with peripheral neuropathy. Continue morphine sulfate IR 30 mg every 4 hours as needed. 7. History of tobacco use and dependence. Continues nicotine patch 8. Hypothyroidism. Continue levothyroxine 50 g daily. 9. Recurrent depression. Patient can benefit from smaller dose of SSRI 10. Peripheral neuropathy secondary to alcoholism and spinal stenosis. 11. 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 Continue insulin 24 units daily. astroesophageal reflux disease and GI prophylaxis. Continue Protonix. 12. Severe protein calorie malnutrition with BMI of 18. 13. DVT prophylaxis. No heparin due to thrombocytopenia. SCDs and ANDREEA hose and early ambulation. Patient admitted to the hospital for 1-2 night stay. Past Medical History Past Medical History: Asthma, Diabetes Mellitus, GERD/Reflux, GI Bleed, Hypertension, Liver Disease, Thyroid Disorder Additional Past Medical History / Comment(s): Liver cirrhosis stage 4 portal htn, ETOH abuse, esophageal varicies, upper GI bleed, chronic thrombocytopenia, coagulopathy, pancytopenia, ascities, spinal stenosis: back/leg and feet pain, DDD, chronic back pain, neuropathy bilateral legs/feet, falls, bronchitis, 2010 Guillium [place], chronic pancreatitis, ascites, newly diagnosed diabetic b202, pulmonary hypertension, thrombocytopenia, patient no longer on transplant list related to high pulmonary hypertension. History of Any Multi-Drug Resistant Organisms: None Reported Past Surgical History: Appendectomy, Heart Catheterization, Joint Replacement Additional Past Surgical History / Comment(s): EGDs, multiple large volume paracentesis, back injections, R thumb reattachment, circumcism, right heart catheterization Past Anesthesia/Blood Transfusion Reactions: No Reported Reaction Additional Past Anesthesia/Blood Transfusion Reaction / Comment(s): Pt has r eceived blood product without reaction. Past Psychological History: Depression Smoking Status: Former smoker - Past Family History Father Family Medical History: Unable to Obtain Additional Family Medical History / Comment(s): Pt does not know his father's medical hx. Mother Family Medical History: No Reported History Additional Family Medical History / Comment(s): Mother is healthy. Brother(s) Additional Family Medical History / Comment(s): Patient has 3 brothers and one suffers from alcohol abuse. 2 brothers have no major medical problems. Patient does not have any sisters. Patient is one daughter 12 years old with no major medical problems. Medications and Allergies Home Medications Medication Instructions Recorded Confirmed Type Pantoprazole Sodium [Protonix] 20 mg PO BID 10/12/19 09/17/20 History Insulin Glargine [Lantus] 24 units SQ DAILY 06/11/20 09/17/20 History Sildenafil [Revatio] 20 mg PO TID 06/11/20 09/17/20 History Levothyroxine Sodium [Synthroid] 50 mcg PO DAILY 08/11/20 09/17/20 History Insulin Aspart [NovoLOG Flexpen] See Protocol SQ AC-TID PRN 09/06/20 09/17/20 History Furosemide [Lasix] 40 mg PO Q48H 09/17/20 09/17/20 History Spironolactone 50 mg PO Q48H 09/17/20 09/17/20 History Allergies Allergy/AdvReac Type Severity Reaction Status Date / Time No Known Allergies Allergy Verified 09/17/20 16:32 Physical Exam Vitals: Vital Signs Temp Pulse Resp BP Pulse Ox 09/17/20 17:41 113 H 18 111/77 97 09/17/20 16:08 102 H 18 108/75 100 09/17/20 12:55 99.4 F 97 18 102/70 100 Intake and Output 09/17/20 09/17/20 09/18/20 14:59 22:59 06:59 Other: Weight 63.503 kg Results CBC & Chem 7: 09/17/20 13:59 09/17/20 13:59 Labs: Abnormal Lab Results - Last 24 Hours (Table) 09/17/20 09/17/20 Range/Units 13:59 13:59 RBC 3.68 L (4.30-5.90) m/uL Hgb 9.6 L (13.0-17.5) gm/dL Hct 30.0 L (39.0-53.0) % RDW 17.8 H (11.5-15.5) % Plt Count 44 L (150-450) k/uL Lymphocytes # 0.2 L (1.0-4.8) k/uL Sodium 128 L (137-145) mmol/L Carbon Dioxide 19 L (22-30) mmol/L BUN 42 H (9-20) mg/dL Glucose 188 H (74-99) mg/dL Calcium 8.0 L (8.4-10.2) mg/dL Total Bilirubin 1.5 H (0.2-1.3) mg/dL Total Protein 5.3 L (6.3-8.2) g/dL Albumin 2.5 L (3.5-5.0) g/dL Amylase 360 H* (30-110) U/L Lipase 2556 H (23-300) U/L
== END 2020-09-17 17:43 | disposition left against medical advice (07) ==
LOC: EC 12:51 → 6NMEDSUR 16:12
PROVIDERS: ADMIT Internal Medicine Geriatric Medicine; ATTEND Internal Medicine Geriatric Medicine
DX: K86.1 Other chronic pancreatitis (principal); K70.31 Alcoholic cirrhosis of liver with ascites; K70.40 Alcoholic hepatic failure without coma; I95.9 Hypotension, unspecified; E86.0 Dehydration; F10.20 Alcohol dependence, uncomplicated; K76.6 Portal hypertension; I27.20 Pulmonary hypertension, unspecified; E43 Unspecified severe protein-calorie malnutrition; D61.818 Other pancytopenia; D69.59 Other secondary thrombocytopenia; G62.1 Alcoholic polyneuropathy; I12.9 Hypertensive chronic kidney disease with stage 1 through stage 4 chronic kidney disease, or unspecified chronic kidney disease; N18.30 Chronic kidney disease, stage 3 unspecified; E11.22 Type 2 diabetes mellitus with diabetic chronic kidney disease; E11.41 Type 2 diabetes mellitus with diabetic mononeuropathy; N17.9 Acute kidney failure, unspecified; E03.9 Hypothyroidism, unspecified; M48.00 Spinal stenosis, site unspecified; K21.9 Gastro-esophageal reflux disease without esophagitis; D68.9 Coagulation defect, unspecified; F33.9 Major depressive disorder, recurrent, unspecified; G89.29 Other chronic pain; M54.9 Dorsalgia, unspecified; J45.909 Unspecified asthma, uncomplicated; Z68.1 Body mass index [BMI] 19.9 or less, adult; Z79.4 Long term (current) use of insulin; Z79.890 Hormone replacement therapy; Z79.899 Other long term (current) drug therapy; Z90.89 Acquired absence of other organs; Z87.891 Personal history of nicotine dependence; Z81.1 Family history of alcohol abuse and dependence
CPT/HCPCS: 96376; 96361; 96374; 99285; 93005; 80053; 82150; 83690; 85025; G0378; J1170; J1790

== ENCOUNTER 2020-09-20 00:06 | Inpatient (IN) | payer MEDICARE ==
[2020-09-20] MEDS ORDERED: LORazepam 2 MG/ML INJ IV STA (00:17)
[2020-09-20] MEDS ORDERED: IPRATROPIUM-ALBUTEROL 3 ML NEB INHALATION STA (00:18)
[2020-09-20] MEDS ORDERED: methylPREDNISolone SOD SUCCI 125 MG/2 ML VIAL IV STA (00:18)
[2020-09-20 00:46] LABS: INR 1.4 (<1.2); Partial Thromboplastin Time 23.5 sec (22.0-30.0); Prothrombin Time 14.2 sec (9.0-12.0)
[2020-09-20 00:48] LABS: Anisocytosis Slight; HCT 35.3 % (39.0-53.0); HGB 11.2 gm/dL (13.0-17.5); Hypochromasia Slight; MCH 26.9 pg (25.0-35.0); MCHC 31.7 g/dL (31.0-37.0); MCV 84.9 fL (80.0-100.0); Mean Platelet Volume 8.2; RBC 4.16 m/uL (4.30-5.90); RDW 17.9 % (11.5-15.5); WBC 8.2 k/uL (3.8-10.6)
--- NOTE | 2020-09-20 00:53 | ED ---
Recheck HPI - General Chief Complaint: Abdominal Pain Stated Complaint: Abd Pain Time Seen by Provider: 09/20/20 00:15 Source: patient, EMS, RN notes reviewed, old records reviewed Mode of arrival: EMS Limitations: no limitations - History of Present Illness Initial Comments: This is a 44-year-old male who presents to ER today. Patient presents with mu ltiple complaints severe abdominal pain. Ascites and pain and feels like prior pancreatitis. Patient has no fevers no chest pain or shortness of breath, patient states he was admitted yesterday but hasn't attempted to some things outside hospital. Patient denies any other change in symptoms. MD Complaint: abnormal lab (Pancreatitis and ascites a paracentesis) -: days(s) Returns Today for: persistent/worsening pain related to initial visit Symptoms Since Prior Visit: worsening pain Associated Symptoms: fever, shortness of breath, nausea, abdominal pain Treatments Prior to Arrival: Given Pain Meds on - Related Data Home Medications Medication Instructions Recorded Confirmed Pantoprazole Sodium [Protonix] 20 mg PO BID 10/12/19 09/17/20 Insulin Glargine [Lantus] 24 units SQ DAILY 06/11/20 09/17/20 Sildenafil [Revatio] 20 mg PO TID 06/11/20 09/17/20 Levothyroxine Sodium [Synthroid] 50 mcg PO DAILY 08/11/20 09/17/20 Insulin Aspart [NovoLOG Flexpen] See Protocol SQ AC-TID PRN 09/06/20 09/17/20 Furosemide [Lasix] 40 mg PO Q48H 09/17/20 09/17/20 Spironolactone 50 mg PO Q48H 09/17/20 09/17/20 Allergies Allergy/AdvReac Type Severity Reaction Status Date / Time No Known Allergies Allergy Verified 09/17/20 16:32 Review of Systems ROS Statement: Those systems with pertinent positive or pertinent negative responses have been documented in the HPI. ROS Other: All systems not noted in ROS Statement are negative. Past Medical History Past Medical History: Asthma, Diabetes Mellitus, GERD/Reflux, GI Bleed, Hypertension, Liver Disease, Thyroid Disorder Additional Past Medical History / Comment(s): Liver cirrhosis stage 4 portal htn, ETOH abuse, esophageal varicies, upper GI bleed, chronic thrombocytopenia, coagulopathy, pancytopenia, ascities, spinal stenosis: back/leg and feet pain, DDD, chronic back pain, neuropathy bilateral legs/feet, falls, bronchitis, 2010 Guillium [place], chronic pancreatitis, ascites, newly diagnosed diabetic [id number], pulmonary hypertension, thrombocytopenia, patient no longer on transplant list related to high pulmonary hypertension. History of Any Multi-Drug Resistant Organisms: None Reported Past Surgical History: Appendectomy, Heart Catheterization, Joint Replacement Additional Past Surgical History / Comment(s): EGDs, multiple large volume paracentesis, back injections, R thumb reattachment, circumcism, right heart catheterization Past Anesthesia/Blood Transfusion Reactions: No Reported Reaction Additional Past Anesthesia/Blood Transfusion Reaction / Comment(s): Pt has received blood product without reaction. Past Psychological History: Depression Smoking Status: Former smoker - Past Family History Father Family Medical History: Unable to Obtain Additional Family Medical History / Comment(s): Pt does not know his father's medical hx. Mother Family Medical History: No Reported History Additional Family Medical History / Comment(s): Mother is healthy. Brother(s) Additional Family Medical History / Comment(s): Patient has 3 brothers and one suffers from alcohol abuse. 2 brothers have no major medical problems. Patient does not have any sisters. Patient is one daughter 12 years old with no major medical problems. General Exam General appearance: alert, in no apparent distress, anxious Head exam: Present: atraumatic, normocephalic, normal inspection Eye exam: Present: normal appearance, PERRL, EOMI. Absent: scleral icterus, c onjunctival injection, periorbital swelling ENT exam: Present: normal exam, mucous membranes moist Neck exam: Present: normal inspection. Absent: tenderness, meningismus, lymphadenopathy Respiratory exam: Present: normal lung sounds bilaterally. Absent: respiratory distress, wheezes, rales, rhonchi, stridor Cardiovascular Exam: Present: normal rhythm, tachycardia, normal heart sounds. Absent: systolic murmur, diastolic murmur, rubs, gallop, clicks GI/Abdominal exam: Present: soft, normal bowel sounds. Absent: distended, tenderness, guarding, rebound, rigid Extremities exam: Present: normal inspection, full ROM, normal capillary refill. Absent: tenderness, pedal edema, joint swelling, calf tenderness Back exam: Present: normal inspection Neurological exam: Present: alert, oriented X3, CN II-XII intact Psychiatric exam: Present: normal affect, normal mood Skin exam: Present: warm, dry, intact, normal color. Absent: rash Course Vital Signs 09/20/20 09/20/20 00:13 03:29 Temperature 99.3 F Pulse Rate 114 H 81 Respiratory 18 17 Rate Blood Pressure 108/78 99/58 O2 Sat by Pulse 98 99 Oximetry - Reevaluation(s) Reevaluation #1: 09/20/20 04:11 Medical record is reviewed 09/20/20 04:11 ER visit from today has been reviewed Reevaluation #2: 09/20/20 04:14 Patient was admitted but did sign out AMA for same issue yesterday Reevaluation #3: 09/20/20 04:15 Patient is informed of results and questions have been answered - Consultations Consultation #1: sPoke with Dr. Bateman regarding admission he is agreeable Medical Decision Making - Medical Decision Making 44 male DEL with history of liver disease and ascites coming in with acute pancreatitis and abdominal pain. Patient will be admitted for pain control symptom management and possible paracentesis - Lab Data Result diagrams: 09/20/20 00:33 09/20/20 00:33 Lab Results 09/20/20 09/20/20 09/20/20 Range/Units 00:33 00:33 00:33 WBC 8.2 (3.8-10.6) k/uL RBC 4.16 L (4.30-5.90) m/uL Hgb 11.2 L (13.0-17.5) gm/dL Hct 35.3 L (39.0-53.0) % MCV 84.9 (80.0-100.0) fL MCH 26.9 (25.0-35.0) pg MCHC 31.7 (31.0-37.0) g/dL RDW 17.9 H (11.5-15.5) % Plt Count 58 L (150-450) k/uL MPV 8.2 Neutrophils % (Manual) 42 % Band Neuts % (Manual) 51 % Lymphocytes % (Manual) 1 % Monocytes % (Manual) 6 % Eosinophils % (Manual) 1 % Neutrophils # (Manual) 7.60 (1.3-7.7) k/uL Lymphocytes # (Manual) 0.08 L (1.0-4.8) k/uL Monocytes # (Manual) 0.49 (0-1.0) k/uL Eosinophils # (Manual) 0.08 (0-0.7) k/uL Nucleated RBCs 0 (0-0) /100 WBC Differential Comment Manual Slide Review Performed Hypochromasia Slight Poikilocytosis (manual Present Anisocytosis Slight Anisocytosis (manual) Present Ovalocytes Present PT 14.2 H (9.0-12.0) sec INR 1.4 H (<1.2) APTT 23.5 (22.0-30.0) sec Sodium 129 L (137-145) mmol/L Potassium 4.1 (3.5-5.1) mmol/L Chloride 103 (98-107) mmol/L Carbon Dioxide 14 L (22-30) mmol/L Anion Gap 12 mmol/L BUN 38 H (9-20) mg/dL Creatinine 1.42 H (0.66-1.25) mg/dL Est GFR (CKD-EPI)AfAm 69 (>60 ml/min/1.73 sqM) Est GFR (CKD-EPI)NonAf 60 (>60 ml/min/1.73 sqM) Glucose 190 H (74-99) mg/dL Calcium 8.1 L (8.4-10.2) mg/dL Phosphorus 3.1 (2.5-4.5) mg/dL Magnesium 1.4 L (1.6-2.3) mg/dL Total Bilirubin 2.1 H (0.2-1.3) mg/dL AST 27 (17-59) U/L ALT 16 (4-49) U/L Alkaline Phosphatase 78 (38-126) U/L Ammonia (<30) umol/L Creatine Kinase <20 L (55-170) U/L Total Protein 5.4 L (6.3-8.2) g/dL Albumin 2.5 L (3.5-5.0) g/dL Amylase 296 H (30-110) U/L Lipase 1415 H (23-300) U/L Serum Alcohol <10 mg/dL 09/20/20 Range/Units 00:33 WBC (3.8-10.6) k/uL RBC (4.30-5.90) m/uL Hgb (13.0-17.5) gm/dL Hct (39.0-53.0) % MCV (80.0-100.0) fL MCH (25.0-35.0) pg MCHC (31.0-37.0) g/dL RDW (11.5-15.5) % Plt Count (150-450) k/uL MPV Neutrophils % (Manual) % Band Neuts % (Manual) % Lymphocytes % (Manual) % Monocytes % (Manual) % Eosinophils % (Manual) % Neutrophils # (Manual) (1.3-7.7) k/uL Lymphocytes # (Manual) (1.0-4.8) k/uL Monocytes # (Manual) (0-1.0) k/uL Eosinophils # (Manual) (0-0.7) k/uL Nucleated RBCs (0-0) /100 WBC Differential Comment Manual Slide Review Hypochromasia Poikilocytosis (manual Anisocytosis Anisocytosis (manual) Ovalocytes PT (9.0-12.0) sec INR (<1.2) APTT (22.0-30.0) sec Sodium (137-145) mmol/L Potassium (3.5-5.1) mmol/L Chloride (98-107) mmol/L Carbon Dioxide (22-30) mmol/L Anion Gap mmol/L BUN (9-20) mg/dL Creatinine (0.66-1.25) mg/dL Est GFR (CKD-EPI)AfAm (>60 ml/min/1.73 sqM) Est GFR (CKD-EPI)NonAf (>60 ml/min/1.73 sqM) Glucose (74-99) mg/dL Calcium (8.4-10.2) mg/dL Phosphorus (2.5-4.5) mg/dL Magnesium (1.6-2.3) mg/dL Total Bilirubin (0.2-1.3) mg/dL AST (17-59) U/L ALT (4-49) U/L Alkaline Phosphatase (38-126) U/L Ammonia 27 (<30) umol/L Creatine Kinase (55-170) U/L Total Protein (6.3-8.2) g/dL Albumin (3.5-5.0) g/dL Amylase (30-110) U/L Lipase (23-300) U/L Serum Alcohol mg/dL Disposition Clinical Impression: Chronic pancreatitis, Pancreatitis, Intractable abdominal pain, Acute pancreatitis, Nausea & vomiting Disposition: ADMITTED IP TO THIS HOSP Condition: Fair Is patient prescribed a controlled substance at d/c from ED?: No
[2020-09-20 00:57] LABS: ALT 16 U/L (4-49); AST 27 U/L (17-59); African American GFR (CKD) 69 (>60 ml/min/1.73 sqM); Albumin 2.5 g/dL (3.5-5.0); Alcohol <10 mg/dL; Alkaline Phosphatase 78 U/L (38-126); Amylase 296 U/L (30-110); Anion Gap 12 mmol/L; Blood Urea Nitrogen 38 mg/dL (9-20); Calcium 8.1 mg/dL (8.4-10.2); Carbon Dioxide 14 mmol/L (22-30); Chloride 103 mmol/L (98-107); Creatine Kinase <20 U/L (55-170); Glucose 190 mg/dL (74-99); Lipase 1415 U/L (23-300); Magnesium 1.4 mg/dL (1.6-2.3); Non-African American GFR(CKD) 60 (>60 ml/min/1.73 sqM); Phosphorus 3.1 mg/dL (2.5-4.5); Potassium 4.1 mmol/L (3.5-5.1); Sodium 129 mmol/L (137-145); Total Bilirubin 2.1 mg/dL (0.2-1.3); Total Protein 5.4 g/dL (6.3-8.2)
[2020-09-20] MEDS ORDERED: HYDROmorphone 1 MG/ML 1 ML SYRINGE IVP PRN (01:03)
[2020-09-20] MEDS ORDERED: HYDROmorphone 1 MG/ML 1 ML SYRINGE IVP STA (01:03)
[2020-09-20 01:16] LABS: Band Neutrophils % 51 %; Eosinophils # (M) 0.08 k/uL (0-0.7); Lymphocytes # (M) 0.08 k/uL (1.0-4.8); Monocytes # (M) 0.49 k/uL (0-1.0); Neutrophils % (M) 42 %; Nucleated Red Blood Cells 0 /100 WBC (0-0); Total Cells Counted 200
[2020-09-20 01:18] LABS: Anisocytosis (M) Present; Ovalocytes Present; Poikilocytosis (M) Present
[2020-09-20 01:19] LABS: Platelet Count 58 k/uL (150-450)
[2020-09-20] MEDS ORDERED: NALOXONE 0.4 MG/ML 1 ML VIAL IV PRN (03:27)
[2020-09-20] MEDS: IPRATROPIUM-ALBUTEROL 3 ML NEB INHALATION SCH ×6 (04:31→19:00)
[2020-09-20] MEDS: SODIUM CHLORIDE 0.9% 1,000 ML IV SCH ×3 (04:55→13:05)
[2020-09-20] MEDS ORDERED: methylPREDNISolone SOD SUCCI 125 MG/2 ML VIAL IV SCH (06:00)
[2020-09-20] MEDS: HYDROmorphone 1 MG/ML 1 ML SYRINGE IVP PRN ×5 (08:16→22:00)
[2020-09-20] MEDS: PANTOPRAZOLE 40 MG/10 ML VIAL IV SCH (08:16)
--- NOTE | 2020-09-20 13:01 | P.HPIM ---
History of Present Illness H&P Date: 09/20/20 HISTORY OF PRESENT ILLNESS This is a 44-year-old male patient of Dr. Sarmad Linn. He has history of alcohol liver cirrhosis with portal hypertension and previous GI bleeding, hypertension and gastritis, pancreatitis, spinal stenosis and peripheral neuropathy, hypothyroidism. Patient also has chronic back pain and was under the care of Dr. Lagunas but violated pain contract and no longer seen by pain management. He is also known to Dr. Ghazal Leiva from previous EGDs in the past finding gastritis consistent with portal gastropathy but no gastric or esophageal varices or active bleeding. He has had multipe admissions for acute GI bleed. He had admission for right leg abscess requiring I&D in December 2017. Patient has had multiple admissions for acute pancreatitis with worsening ascites. Most recently, hospitalizations have been for ascites and therapeutic paracentesis. Patient has been following with [facility] for liver failure and evaluation for liver transplant. Patient complains of abdominal pain and abdominal distention. He needs to have paracentesis done early and he has an appointment with [facility] but could not wait for his appointment. Patient came into [facility] emergency center for evaluation. He was afebrile, heart rate 114, the pressure 108/78, pulse ox 98% on room air. WBC 8.2, hemoglobin 11.2, platelet count 58. Sodium 129, potassium 4.1, chloride 103, CO2 14, BUN 38 and creatinine 1.42. Blood sugar 190. Phosphorus 3.1. Magnesium 1.5 total bilirubin 2.1, AST 67, ALT 16, complaint phosphatase 78. CK less than 20. Amylase 296. Lipase 1415. Serum alcohol less than 10. Ammonia level XXVII. Patient has been admitted to the [facility] floor, consult with GI as well as interventional radiology for therapeutic Alvarado T-System. Patient is currently nothing by mouth. REVIEW OF SYSTEMS reports Constitutional: Denies chills, Denies fatigue, Denies fever, Denies lethargy, Denies malaise, reports poor appetite, Denies weakness Eyes: denies blurred vision, denies pain Ears, nose, mouth and throat: Denies headache, Denies sore throat Cardiovascular: Denies chest pain, Denies decreased exercise tolerance, Denies dyspnea on exertion, Denies lightheadedness, Denies shortness of breath, Denies syncope Respiratory: Denies cough, Denies cough with sputum, Denies dyspnea, Denies hemoptysis, Denies home oxygen, Denies respiratory infections, Denies wheezing Gastrointestinal: Reports abdominal pain, reports abdominal distention Denies BRBPR, Denies diarrhea, Denies melena, reports nausea, reports vomiting, reports decreased appetite Genitourinary: Denies dysuria, Denies urinary hesitancy, Denies urinary retention, reports dark urine Musculoskeletal: Denies frequent falls, Denies gait dysfunction, Denies muscle weakness, Denies myalgias Integumentary: Denies pruritus, Denies rash, Denies wounds Neurological: Denies numbness, Denies weakness Psychiatric: Denies anxiety, Denies depression Endocrine: Denies fatigue, Denies weight change PHYSICAL EXAMINATION Gen: This is a thin 44-year-old male. Patient is resting in bed and a ppears to be comfortable and in no acute distress. HEENT: Head is atraumatic, normocephalic. Pupils equal, round. Sclerae is anicteric. NECK: Supple. No JVD. No lymphadenopathy. No thyromegaly. LUNGS: Clear to auscultation. No wheezes or rhonchi. No intercostal retractions. HEART: Regular rate and rhythm. No murmur. ABDOMEN: Significant abdominal distention, ascites. Bowel sounds are present. No masses. Epigastric and bilateral upper quadrant tenderness. Large umbilical hernia with varicose veins. EXTREMITIES: No pedal edema. No calf tenderness. NEUROLOGICAL: Patient is awake, alert and oriented x3. Cranial nerves 2 through 12 are grossly intact. ASSESSMENT AND PLAN 1. Acute abdominal pain secondary to pancreatitis and worsening ascites. Consult with interventional radiology and GI. Pain medication 1 mg IV push will be increased frequency to every 3 hours as needed 2. Acute on chronic pancreatitis. Continue IV fluids decreased to 50 mL per hour while nothing by mouth. 3. History of alcoholic liver disease with portal hypertension and previous episodes of acute GI bleed with acute blood loss anemia resulting in multiple hospitalizations for GI bleeding from esophageal varices status post banding. Continue Protonix changed to IV daily. Continue Lasix, Aldactone. 4. Chronic ascites and scheduled paracentesis. Continue Aldactone and Lasix. 5. 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 6. Spinal stenosis with peripheral neuropathy. 7. History of tobacco use and dependence. 8. Hypothyroidism. Continue levothyroxine 50 g daily. 9. Recurrent depression. 10. Peripheral neuropathy secondary to alcoholism and spinal stenosis. 11. 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 Continue Lantus 24 units daily. 12. GI prophylaxis. Protonix. 13. Severe protein calorie malnutrition. 13. DVT prophylaxis. No heparin due to thrombocytopenia. SCDs and ANDREEA hose and early ambulation. Patient admitted to the hospital for a minimum of 2 night stay. DISCHARGE PLAN Home Impression and plan of care have been directed as dictated by the signing physician. Giovana Kathleen nurse practitioner acting as scribe for signing physician. Past Medical History Past Medical History: Asthma, Diabetes Mellitus, GERD/Reflux, GI Bleed, Hypertension, Liver Disease, Thyroid Disorder Additional Past Medical History / Comment(s): Liver cirrhosis stage 4 portal htn, ETOH abuse, esophageal varicies, upper GI bleed, chronic thrombocytopenia, coagulopathy, pancytopenia, ascities, spinal stenosis: back/leg and feet pain, DDD, chronic back pain, neuropathy bilateral legs/feet, falls, bronchitis, 2010 Guillium [place], chronic pancreatitis, ascites, newly diagnosed diabetic [id number], pulmonary hypertension, thrombocytopenia, patient no longer on transplant list related to high pulmonary hypertension. History of Any Multi-Drug Resistant Organisms: None Reported Past Surgical History: Appendectomy, Heart Catheterization, Joint Replacement Additional Past Surgical History / Comment(s): EGDs, multiple large volume paracentesis, back injections, R thumb reattachment, circumcism, right heart catheterization Past Anesthesia/Blood Transfusion Reactions: No Reported Reaction Additional Past Anesthesia/Blood Transfusion Reaction / Comment(s): Pt has received blood product without reaction. Past Psychological History: Depression Smoking Status: Former smoker - Past Family History Father Family Medical History: Unable to Obtain Additional Family Medical History / Comment(s): Pt does not know his father's medical hx. Mother Family Medical History: No Reported History Additional Family Medical History / Comment(s): Mother is healthy. Brother(s) Additional Family Medical History / Comment(s): Patient has 3 brothers and one suffers from alcohol abuse. 2 brothers have no major medical problems. Patient does not have any sisters. Patient is one daughter 12 years old with no major medical problems. Medications and Allergies Home Medications Medication Instructions Recorded Confirmed Type Pantoprazole Sodium [Protonix] 20 mg PO BID 10/12/19 09/20/20 History Insulin Glargine [Lantus] 24 units SQ DAILY 06/11/20 09/20/20 History Sildenafil [Revatio] 20 mg PO TID 06/11/20 09/20/20 History Levothyroxine Sodium [Synthroid] 50 mcg PO DAILY 08/11/20 09/20/20 History Insulin Aspart [NovoLOG Flexpen] See Protocol SQ AC-TID PRN 09/06/20 09/20/20 History Furosemide [Lasix] 40 mg PO Q48H 09/17/20 09/20/20 History Spironolactone 50 mg PO Q48H 09/17/20 09/20/20 History Allergies Allergy/AdvReac Type Severity Reaction Status Date / Time No Known Allergies Allergy Verified 09/20/20 08:09 Physical Exam Vitals: Vital Signs Temp Pulse Pulse Pulse Resp BP BP 09/20/20 06:03 97.7 F 102 H 20 121/81 09/20/20 05:17 105 H 09/20/20 04:29 79 16 100/62 09/20/20 03:29 81 17 99/58 09/20/20 00:13 99.3 F 114 H 18 108/78 Pulse Ox 09/20/20 06:03 93 L 09/20/20 05:17 09/20/20 04:29 99 09/20/20 03:29 99 09/20/20 00:13 98 Intake and Output 09/19/20 09/20/20 09/20/20 22:59 06:59 14:59 Intake Total 0 Balance 0 Intake: Oral 0 Other: Voiding Method Toilet # Voids 0 Weight 56.699 kg Results CBC & Chem 7: 09/20/20 00:33 09/20/20 00:33 Labs: Abnormal Lab Results - Last 24 Hours (Table) 09/20/20 09/20/20 09/20/20 Range/Units 00:33 00:33 00:33 RBC 4.16 L (4.30-5.90) m/uL Hgb 11.2 L (13.0-17.5) gm/dL Hct 35.3 L (39.0-53.0) % RDW 17.9 H (11.5-15.5) % Plt Count 58 L (150-450) k/uL Lymphocytes # (Manual) 0.08 L (1.0-4.8) k/uL PT 14.2 H (9.0-12.0) sec INR 1.4 H (<1.2) Sodium 129 L (137-145) mmol/L Carbon Dioxide 14 L (22-30) mmol/L BUN 38 H (9-20) mg/dL Creatinine 1.42 H (0.66-1.25) mg/dL Glucose 190 H (74-99) mg/dL Calcium 8.1 L (8.4-10.2) mg/dL Magnesium 1.4 L (1.6-2.3) mg/dL Total Bilirubin 2.1 H (0.2-1.3) mg/dL Creatine Kinase <20 L (55-170) U/L Total Protein 5.4 L (6.3-8.2) g/dL Albumin 2.5 L (3.5-5.0) g/dL Amylase 296 H (30-110) U/L Lipase 1415 H (23-300) U/L
[2020-09-20 14:28] LABS: Glucose,Whole Blood 317 mg/dL (75-99)
[2020-09-20] MEDS: SILDENAFIL 20 MG TAB PO SCH ×2 (14:48→22:02)
--- NOTE | 2020-09-20 14:59 | US ---
EXAMINATION TYPE: US paracentesis abd w/image DATE OF EXAM: 09/20/2020 COMPARISON: NONE HISTORY: Ascites. PROCEDURE: Maximal barrier technique was utilized. The skin overlying a suitable pocket of fluid was localized with ultrasound and the overlying skin was prepped and draped. Ultrasound was utilized with sterile technique. Lidocaine was used for local anesthesia and a skin gia made with a scalpel. Catheter was advanced under direct ultrasound guidance into a suitable pocket of fluid and approximately 8.2 liter s of serous fluid were removed. Catheter was withdrawn and hemostasis achieved. There is no immedia te complication; the patient is discharged in stable condition. IMPRESSION: STATUS POST ULTRASOUND GUIDED PARACENTESIS FOR PALLIATION OF ASCITES. THIS PROCEDURE WA S PERFORMED BY THE UNDERSIGNED.
[2020-09-20] MEDS: ALBUMIN HUMAN 25% 50 ML in EMPTY BAG 1 BAG IVPB SCH ×4 (15:28→17:55)
--- NOTE | 2020-09-20 15:57 | P.CONS ---
History of Present Illness - Reason for Consult Consult date: 09/20/20 ascites, pancreatitis Requesting physician: Wilton Bateman - Chief Complaint Abdominal pain - History of Present Illness This is a 44-year-old white male with the past medical history of alcoholic liver cirrhosis with portal hypertension, previous GI bleed, hypertension, pulm onary hypertension, gastritis, chronic pancreatitis, chronic back pain, and peripheral neuropathy who came to the emergency department with complaints of abdominal pain and distention. States his pain was severe and similar to previous pancreatitis. He has been going weekly for paracentesis, he is scheduled for paracentesis every Thursday, however this past Thursday his blood pressure was low and they deferred.. 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 He went back about a month ago to have metal stent placed and ended up with acute pancreatitis and was hospitalized. He states he had recent changes to his diuretics, Lasix 40 mg every 48 hours and Aldactone 50 mg every 48 hours. He also underwent a cardiac catheterization at the [facility] and follows with Dr. Irving, which showed he had pulmonary hypertension. He states he is having epigastric pain today, he states that he has been having it ever since he had the stent placed but worse in the last 1-2 days. Current labs WBC 8.2, hemoglobin 11.2, hematocrit 35, platelet count 58,000, INR 1.4, ammonia 27, BUN 38, creatinine 1.42, total bilirubin 2.1, a clamp phosphatase 78, AST 27, ALT 16. Review of Systems REVIEW OF SYSTEMS: CARDIOPULMONARY: No chest pain or shortness of breath. Gastrointestinal: Abdominal pain, distention, ascites. No nausea or vomiting. No hematemesis, coffee-ground emesis. No rectal bleeding, or melena. GENITOURINARY: No dysuria or hematuria. MUSCULOSKELETAL: Reports normal range of motion., Joint pain. SKIN: No rashes. No jaundice. ENDOCRINE: No chills, fevers. No excessive weight gain or loss. No polydipsia or polyuria. PSYCHIATRIC: Unremarkable. NEUROLOGY: No change in mental status. Denies dizziness, headache. ENT: Vision unremarkable. CONSTITUTIONAL: No recent weight loss. No fever, chills, night sweats. Past Medical History Past Medical History: Asthma, Diabetes Mellitus, GERD/Reflux, GI Bleed, Hypertension, Liver Disease, Thyroid Disorder Additional Past Medical History / Comment(s): Liver cirrhosis stage 4 portal htn, ETOH abuse, esophageal varicies, upper GI bleed, chronic thrombocytopenia, coagulopathy, pancytopenia, ascities, spinal stenosis: back/leg and feet pain, DDD, chronic back pain, neuropathy bilateral legs/feet, falls, bronchitis, 2010 Guillium [place], chronic pancreatitis, ascites, newly diagnosed diabetic Apr 2020, pulmonary hypertension, thrombocytopenia, patient no longer on transplant list related to high pulmonary hypertension. History of Any Multi-Drug Resistant Organisms: None Reported Past Surgical History: Appendectomy, Heart Catheterization, Joint Replacement Additional Past Surgical History / Comment(s): EGDs, multiple large volume paracentesis, back injections, R thumb reattachment, circumcism, right heart catheterization Past Anesthesia/Blood Transfusion Reactions: No Reported Reaction Additional Past Anesthesia/Blood Transfusion Reaction / Comm: Pt has received blood product without reaction. Past Psychological History: Depression Additional Psychological History / Comment(s): Pt is on disability. 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 He uses a cane to ambulate at times. He drives. Smoking Status: Light tobacco smoker Past Alcohol Use History: None Reported Additional Past Alcohol Use History / Comment(s): patient states he is a rare smoker. He might smoke 1 cigarette every 2 weeks. Past Drug Use History: Marijuana - Past Family History Father Family Medical History: Unable to Obtain Additional Family Medical History / Comment(s): Pt does not know his father's medical hx. Mother Family Medical History: No Reported History Additional Family Medical History / Comment(s): Mother is healthy. Brother(s) Additional Family Medical History / Comment(s): Patient has 3 brothers and one suffers from alcohol abuse. 2 brothers have no major medical problems. Patient does not have any sisters. Patient is one daughter 12 years old with no major medical problems. Medications and Allergies Home Medications Medication Instructions Recorded Confirmed Type Pantoprazole Sodium [Protonix] 20 mg PO BID 10/12/19 09/20/20 History Insulin Glargine [Lantus] 24 units SQ DAILY 06/11/20 09/20/20 History Sildenafil [Revatio] 20 mg PO TID 06/11/20 09/20/20 History Levothyroxine Sodium [Synthroid] 50 mcg PO DAILY 08/11/20 09/20/20 History Insulin Aspart [NovoLOG Flexpen] See Protocol SQ AC-TID PRN 09/06/20 09/20/20 History Furosemide [Lasix] 40 mg PO Q48H 09/17/20 09/20/20 History Spironolactone 50 mg PO Q48H 09/17/20 09/20/20 History Allergies Allergy/AdvReac Type Severity Reaction Status Date / Time No Known Allergies Allergy Verified 09/20/20 08:09 Physical Exam Vitals: Vital Signs Temp Pulse Pulse Pulse Resp BP BP 09/20/20 11:44 100 16 111/72 09/20/20 11:20 102 H 18 123/74 09/20/20 06:03 97.7 F 102 H 20 121/81 09/20/20 05:17 105 H 09/20/20 04:29 79 16 100/62 09/20/20 03:29 81 17 99/58 09/20/20 00:13 99.3 F 114 H 18 108/78 Pulse Ox 09/20/20 11:44 94 L 09/20/20 11:20 95 09/20/20 06:03 93 L 09/20/20 05:17 09/20/20 04:29 99 09/20/20 03:29 99 09/20/20 00:13 98 Intake and Output 09/19/20 09/20/20 09/20/20 22:59 06:59 14:59 Intake Total 0 Balance 0 Intake: Oral 0 Other: Voiding Method Toilet Toilet # Voids 0 Weight 56.699 kg 71.5 kg General appearance: The patient is alert, oriented, appears in no acute distress. HET: Head is normocephalic and atraumatic. Conjunctiva pink. Sclera anicteric. Neck: Supple without lymphadenopathy. Trachea midline. Heart: S1 S2. Regular rate and rhythm. Lungs: Clear to auscultation. Abdomen: Soft, diffuse tenderness, large umbilical hernia,, mildly distended with bowel sounds. No guarding or rigidity. Skin: No rashes. No jaundice. Extremities: Normal skin color and turgor. No pedal edema. Neurological: No focal deficits. Alert and oriented 3.. Results CBC & Chem 7: 09/20/20 00:33 09/20/20 00:33 Labs: Abnormal Lab Results - Last 24 Hours (Table) 09/20/20 09/20/20 09/20/20 Range/Units 00:33 00:33 00:33 RBC 4.16 L (4.30-5.90) m/uL Hgb 11.2 L (13.0-17.5) gm/dL Hct 35.3 L (39.0-53.0) % RDW 17.9 H (11.5-15.5) % Plt Count 58 L (150-450) k/uL Lymphocytes # (Manual) 0.08 L (1.0-4.8) k/uL PT 14.2 H (9.0-12.0) sec INR 1.4 H (<1.2) Sodium 129 L (137-145) mmol/L Carbon Dioxide 14 L (22-30) mmol/L BUN 38 H (9-20) mg/dL Creatinine 1.42 H (0.66-1.25) mg/dL Glucose 190 H (74-99) mg/dL Calcium 8.1 L (8.4-10.2) mg/dL Magnesium 1.4 L (1.6-2.3) mg/dL Total Bilirubin 2.1 H (0.2-1.3) mg/dL Creatine Kinase <20 L (55-170) U/L Total Protein 5.4 L (6.3-8.2) g/dL Albumin 2.5 L (3.5-5.0) g/dL Amylase 296 H (30-110) U/L Lipase 1415 H (23-300) U/L Assessment and Plan (1) Acute on chronic pancreatitis Narrative/Plan: 44-year-old male with a past medical history of alcoholic cirrhosis of the liver, liver failure related to the above and into the emergency department with abdominal pain and abdominal distention. He was found to have acute on chronic pancreatitis. The patient follows with [facility], he is status post biliary stents. He is awaiting to possibly be on the liver transplant list. He has had multiple episodes of pancreatitis in the past related to alcohol abuse. He has not had any alcohol in several months. On admission he had a lipase of 1415, amylase 296, total bilirubin 2.1, alkaline phosphatase 78, AST 27, ALT 16. Patient states he has been having increased abdominal pain over the last couple days, also noted to have increased abdominal distention. Patient is to follow-up with [facility], acute on chronic alcoholic pancreatitis related to previous history of alcohol abuse. Continue IV fluids, pain medication, clear liquid diet. Current Visit: Yes Status: Acute Code(s): K85.90 - ACUTE PANCREATITIS WITHOUT NECROSIS OR INFECTION, UNSP; K86.1 - OTHER CHRONIC PANCREATITIS SNOMED Code(s): 864209522 (2) Abdominal pain Current Visit: No Status: Acute Code(s): R10.9 - UNSPECIFIED ABDOMINAL PAIN SNOMED Code(s): 41169098 (3) Alcoholic cirrhosis of liver Current Visit: No Status: Acute Code(s): K70.30 - ALCOHOLIC CIRRHOSIS OF L IVER WITHOUT ASCITES SNOMED Code(s): 522095880 (4) Ascites Narrative/Plan: Patient is scheduled for weekly paracentesis on Mondays, this past Thursday he was unable to have his paracentesis due to low blood pressure. Today he underwent a Alvarado teases with 8.2 L of fluid removed. Current Visit: No Status: Acute Code(s): R18.8 - OTHER ASCITES SNOMED Code(s): 261465221 (5) Chronic liver failure Current Visit: No Status: Acute Code(s): K72.10 - CHRONIC HEPATIC FAILURE WITHOUT COMA SNOMED Code(s): 942284072 Plan: 1. Continue symptomatic and supportive care 2. Paracentesis completed today with a 8.2 L removed 3. Albumin ordered 4. Continue diuretics as ordered for now 5. Repeat daily labs 6. Patient may have clear liquid diet 7. Continue IV fluids 8. Pain medications as needed 9. Follow-up with [facility] as scheduled Thank you for this consultation, we will continue to follow Dr. Augustine I agree with the dictator's note, documented as a scribe by Janessa Love.
[2020-09-20 17:43] LABS: Glucose,Whole Blood 274 mg/dL (75-99)
[2020-09-20] MEDS: INSULIN ASPART (NovoLOG) 100 UNIT/ML VIAL SQ SCH ×2 (17:56→22:01)
[2020-09-20 20:04] LABS: Glucose,Whole Blood 260 mg/dL (75-99)
[2020-09-21] MEDS: IPRATROPIUM-ALBUTEROL 3 ML NEB INHALATION SCH ×6 (00:02→19:35)
[2020-09-21] MEDS: HYDROmorphone 1 MG/ML 1 ML SYRINGE IVP PRN ×7 (01:05→23:49)
[2020-09-21 06:38] LABS: ALT 13 U/L (4-49); AST 20 U/L (17-59); African American GFR (CKD) >90 (>60 ml/min/1.73 sqM); Albumin 2.2 g/dL (3.5-5.0); Alkaline Phosphatase 44 U/L (38-126); Anion Gap 6 mmol/L; Blood Urea Nitrogen 46 mg/dL (9-20); Calcium 7.7 mg/dL (8.4-10.2); Carbon Dioxide 17 mmol/L (22-30); Chloride 105 mmol/L (98-107); Globulin 2.2 g/dL; Glucose 299 mg/dL (74-99); Lipase 520 U/L (23-300); Magnesium 1.6 mg/dL (1.6-2.3); Non-African American GFR(CKD) 87 (>60 ml/min/1.73 sqM); Phosphorus 3.3 mg/dL (2.5-4.5); Potassium 4.4 mmol/L (3.5-5.1); Sodium 128 mmol/L (137-145); Total Bilirubin 1.6 mg/dL (0.2-1.3); Total Protein 4.4 g/dL (6.3-8.2)
[2020-09-21] MEDS: LEVOTHYROXINE 50 MCG TAB PO SCH (06:40)
[2020-09-21] MEDS: SODIUM CHLORIDE 0.9% 1,000 ML IV SCH (06:42)
[2020-09-21 06:50] LABS: Anisocytosis Slight; Basophils % (A) 0 %; Eosinophils % (A) 0 %; HCT 26.3 % (39.0-53.0); Hypochromasia Slight; Lymphocytes # (A) 0.1 k/uL (1.0-4.8); Lymphocytes % (A) 3 %; MCH 26.8 pg (25.0-35.0); MCHC 31.1 g/dL (31.0-37.0); Mean Platelet Volume 8.3; Monocytes # (A) 0.2 k/uL (0-1.0); Monocytes % (A) 4 %; Neutrophils # (A) 3.3 k/uL (1.3-7.7); Neutrophils % (A) 92 %; RBC 3.06 m/uL (4.30-5.90); RDW 17.9 % (11.5-15.5); WBC 3.6 k/uL (3.8-10.6)
[2020-09-21 06:54] LABS: HGB 8.2 gm/dL (13.0-17.5)
[2020-09-21 06:55] LABS: Platelet Count 35 k/uL (150-450)
[2020-09-21 07:11] LABS: Glucose,Whole Blood 337 mg/dL (75-99)
[2020-09-21] MEDS: PANTOPRAZOLE 40 MG/10 ML VIAL IV SCH (08:06)
[2020-09-21] MEDS: INSULIN ASPART (NovoLOG) 100 UNIT/ML VIAL SQ SCH ×6 (08:07→20:19)
[2020-09-21] MEDS: FUROSEMIDE 40 MG TAB PO SCH (08:08)
[2020-09-21] MEDS: SILDENAFIL 20 MG TAB PO SCH ×3 (08:08→20:38)
[2020-09-21] MEDS: SPIRONOLACTONE 25 MG TAB PO SCH (08:08)
[2020-09-21] MEDS ORDERED: HYDROmorphone 2 MG TAB PO PRN (10:07)
[2020-09-21] MEDS: INSULIN DETEMIR (LEVEMIR) 100 UNIT/ML SYR SQ SCH (11:18)
[2020-09-21 11:21] LABS: Glucose,Whole Blood 431 mg/dL (75-99)
[2020-09-21] MEDS ORDERED: INSULIN ASPART (NovoLOG) 100 UNIT/ML VIAL SQ ONE (12:16)
--- NOTE | 2020-09-21 12:25 | P.PN ---
Subjective Progress Note Date: 09/21/20 HISTORY OF PRESENT ILLNESS This is a 44-year-old male patient of Dr. Sarmad Linn. He has history of alcohol liver cirrhosis with portal hypertension and previous GI blee ding, hypertension and gastritis, pancreatitis, spinal stenosis and peripheral neuropathy, hypothyroidism. Patient also has chronic back pain and was under the care of Dr. Lagunas but violated pain contract and no longer seen by pain management. He is also known to Dr. Ghazal Leiva from previous EGDs in the past finding gastritis consistent with portal gastropathy but no gastric or esophageal varices or active bleeding. He has had multipe admissions for acute GI bleed. He had admission for right leg abscess requiring I&D in December 2017. Patient has had multiple admissions for acute pancreatitis with worsening ascites. Most recently, hospitalizations have been for ascites and therapeutic paracentesis. Patient has been following with [facility] for liver failure and evaluation for liver transplant. Patient complains of abdominal pain and abdominal distention. He needs to have paracentesis done early and he has an appointment with [facility] but could not wait for his appointment. Patient came into [facility] emergency center for evaluation. He was afebrile, heart rate 114, the pressure 108/78, pulse ox 98% on room air. WBC 8.2, hemoglobin 11.2, platelet count 58. Sodium 129, potassium 4.1, chloride 103, CO2 14, BUN 38 and creatinine 1.42. Blood sugar 190. Phosphorus 3.1. Magnesium 1.5 total bilirubin 2.1, AST 67, ALT 16, complaint phosphatase 78. CK less than 20. Amylase 296. Lipase 1415. Serum alcohol less than 10. Ammonia level XXVII. Patient has been admitted to the MedSur floor, consult with GI as well as interventional radiology for therapeutic Alvarado T-System. Patient is currently nothing by mouth. 09/21: Patient underwent paracentesis yesterday with removal of 8.2 L of fluid. He continues to complain of abdominal pain and Dilaudid will be increased to 1- 1/2 mg every 3 hours. Patient has been afebrile, heart rate 109, blood pressure 92/59 to 77/56. Pulse ox 93% on 2 L. Patient is currently on clear liquid diet which will be continued. GI is on consult and following the patient. Repeat blood work reveals a lipase of 520. Blood sugars have been running between 260 and 431. It appears the patient did not receive his Levemir yesterday until 11:00 today and he also was given IV Solu-Medrol in the emergency center. Levemir has been resumed and we are adding in NovoLog 5 units with meals and NovoLog scale is already in place. IV fluids discontinued. Repeat blood work ordered for tomorrow and anticipate discharge home tomorrow. REVIEW OF SYSTEMS reports Constitutional: Denies chills, Denies fatigue, Denies fever, Denies lethargy, Denies malaise, reports poor appetite, Denies weakness Eyes: denies blurred vision, denies pain Ears, nose, mouth and throat: Denies headache, Denies sore throat Cardiovascular: Denies chest pain, Denies decreased exercise tolerance, Denies dyspnea on exertion, Denies lightheadedness, Denies shortness of breath, Denies syncope Respiratory: Denies cough, Denies cough with sputum, Denies dyspnea, Denies hemoptysis, Denies home oxygen, Denies respiratory infections, Denies wheezing Gastrointestinal: Reports abdominal pain, reports abdominal distention Denies BRBPR, Denies diarrhea, Denies melena, reports nausea, reports vomiting, reports decreased appetite Genitourinary: Denies dysuria, Denies urinary hesitancy, Denies urinary retention, reports dark urine Musculoskeletal: Denies frequent falls, Denies gait dysfunction, Denies muscle weakness, Denies myalgias Integumentary: Denies pruritus, Denies rash, Denies wounds Neurological: Denies numbness, Denies weakness Psychiatric: Denies anxiety, Denies depression Endocrine: Denies fatigue, Denies weight change, hyperglycemia PHYSICAL EXAMINATION Gen: This is a thin 44-year-old male. Patient is resting in bed and appears to be comfortable and in no acute distress. HEENT: Head is atraumatic, normocephalic. Pupils equal, round. Sclerae is anicteric. NECK: Supple. No JVD. No lymphadenopathy. No thyromegaly. LUNGS: Clear to auscultation. No wheezes or rhonchi. No intercostal retractions. HEART: Regular rate and rhythm. No murmur. ABDOMEN: Abdominal distention and ascites significantly improved. Bowel sounds are present. No masses. Generalized abdominal tenderness. Large umbilical hernia with varicose veins. EXTREMITIES: No pedal edema. No calf tenderness. NEUROLOGICAL: Patient is awake, alert and oriented x3. Cranial nerves 2 through 12 are grossly intact. ASSESSMENT AND PLAN 1. Acute abdominal pain secondary to pancreatitis and worsening ascites status post paracentesis. Consult with interventional radiology and GI appreciated. Pain medication Dilaudid increased to 1-1/2 mg IV push every 3 hours as needed 2. Acute on chronic pancreatitis. Discontinue IV fluids, continue clear liquid diet only, continue Dilaudid, repeat lab work in the morning, consult with GI. 3. History of alcoholic liver disease with portal hypertension and previous episodes of acute GI bleed with acute blood loss anemia resulting in multiple hospitalizations for GI bleeding from esophageal varices status post banding. Continue Protonix changed to IV daily. Continue Lasix, Aldactone. 4. Chronic ascites and scheduled paracentesis. Continue Aldactone and Lasix. 5. 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 6. Spinal stenosis with peripheral neuropathy. 7. History of tobacco use and dependence. 8. Hypothyroidism. Continue levothyroxine 50 g daily. 9. Recurrent depression. 10. Peripheral neuropathy secondary to alcoholism and spinal stenosis. 11. 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 Continue Lantus 24 units daily, additional dose of 10 units of NovoLog to be given with lunch, NovoLog 5 units with meals added and continue NovoLog scale. 12. GI prophylaxis. Protonix. 13. Severe protein calorie malnutrition. 13. DVT prophylaxis. No heparin due to thrombocytopenia. SCDs and ANDREEA hose and early ambulation. DISCHARGE PLAN Home on Thursday Impression and plan of care have been directed as dictated by the signing physician. Giovana Kathleen nurse practitioner acting as scribe for signing physician. Objective - Vital Signs Vital signs: Vital Signs Temp 98.0 F 09/21/20 04:38 Pulse 103 H 09/21/20 07:29 Resp 18 09/21/20 07:29 BP 92/59 09/21/20 04:38 Pulse Ox 93 L 09/21/20 07:29 Intake & Output 09/20/20 09/21/20 09/21/20 18:59 06:59 18:59 Intake Total 600 650 Balance 600 650 Weight 71.5 kg Intake: Intake, IV Titration 600 650 Amount Albumin Human 25% 50 ml 50 In Empty Bag 1 bag @ 200 mls/hr IVPB Q15M [facility] Rx#: [id number] Sodium Chloride 0.9% 1, 600 600 000 ml @ 50 mls/hr IV . Q20H [facility] Rx#:[id number] Other: Voiding Method Toilet Urinal Urinal - Labs CBC & Chem 7: 09/21/20 05:54 09/21/20 05:54 Labs: Abnormal Lab Results - Last 24 Hours (Table) 09/20/20 09/20/20 09/20/20 Range/Units 14:27 17:42 20:03 WBC (3.8-10.6) k/uL RBC (4.30-5.90) m/uL Hgb (13.0-17.5) gm/dL Hct (39.0-53.0) % RDW (11.5-15.5) % Plt Count (150-450) k/uL Lymphocytes # (1.0-4.8) k/uL Sodium (137-145) mmol/L Carbon Dioxide (22-30) mmol/L BUN (9-20) mg/dL Glucose (74-99) mg/dL POC Glucose (mg/dL) 317 H 274 H 260 H (75-99) mg/dL Calcium (8.4-10.2) mg/dL Total Bilirubin (0.2-1.3) mg/dL Total Protein (6.3-8.2) g/dL Albumin (3.5-5.0) g/dL Lipase (23-300) U/L 09/21/20 09/21/20 09/21/20 Range/Units 05:54 05:54 07:10 WBC 3.6 L (3.8-10.6) k/uL RBC 3.06 L (4.30-5.90) m/uL Hgb 8.2 L D (13.0-17.5) gm/dL Hct 26.3 L (39.0-53.0) % RDW 17.9 H (11.5-15.5) % Plt Count 35 L (150-450) k/uL Lymphocytes # 0.1 L (1.0-4.8) k/uL Sodium 128 L (137-145) mmol/L Carbon Dioxide 17 L (22-30) mmol/L BUN 46 H (9-20) mg/dL Glucose 299 H (74-99) mg/dL POC Glucose (mg/dL) 337 H (75-99) mg/dL Calcium 7.7 L (8.4-10.2) mg/dL Total Bilirubin 1.6 H (0.2-1.3) mg/dL Total Protein 4.4 L (6.3-8.2) g/dL Albumin 2.2 L (3.5-5.0) g/dL Lipase 520 H (23-300) U/L
[2020-09-21] MEDS ORDERED: HYDROmorphone 1 MG/ML 1 ML SYRINGE IM STA (14:02)
[2020-09-21] MEDS ORDERED: HYDROmorphone 1 MG/ML 1 ML SYRINGE IVP STA (14:51)
[2020-09-21 17:06] LABS: Glucose,Whole Blood 148 mg/dL (75-99)
--- NOTE | 2020-09-21 17:33 | PN ---
PROGRESS NOTE DATE OF SERVICE: 09/21/2020 The patient is a 44-year-old pleasant white male admitted to the hospital with acute severe epigastric pain for the last few days' duration. He has history of alcoholic cirrhosis of the liver with refractory ascites, requiring large-volume paracentesis almost on a weekly basis. Following admission to the hospital, the patient underwent large-volume paracentesis yesterday and approximately 8.5 L of fluid was removed. During this hospitalization, he was noted to have elevated lipase at 1415 amylase is 296. He is currently being treated for acute pancreatitis and he is receiving Dilaudid every 2 hours. He still continues to complain of severe epigastric discomfort. Reports no nausea, vomiting. No fever, chills, night sweats. PHYSICAL EXAMINATION: He is in distress because of pain. VITAL SIGNS: Stable. Blood pressure is 93/62, pulse rate 106, temperature 98.1. HEENT examination unremarkable. Conjunctivae pink. Sclerae anicteric. Oral cavity, no lesions. NECK: No JVD or lymph node enlargement. CHEST was clear to auscultation. HEART: Regular rate and rhythm. ABDOMEN: Distended. Umbilical hernia noted, severe pain in the epigastric area. Bowel sounds are positive. No organomegaly. EXTREMITIES: No pedal edema. SKIN: No rashes. NEUROLOGIC: Alert and oriented x3. No focal deficits. LABS: Done today, WBC 3.6, hemoglobin 8.2, platelets are 35,000. Sodium 128, potassium 4.4, BUN 46, creatinine 1.06. AST, ALT are normal. T bilirubin is 2.1, alkaline phosphatase 78. Ammonia is 27. Lipase is down to 520 today. Serum alcohol level less than 10. IMPRESSION: 1. Severe epigastric pain for the last 3 days' duration, elevated amylase and lipase consistent with acute pancreatitis. The patient is having pain medications every 2 hours with Dilaudid. 2. Refractory ascites status post large-volume paracentesis yesterday and 8.6 L of fluid removed. With the ongoing abdominal pain, possibility of spontaneous bacterial peritonitis needs to be considered. Fluid from yesterday was not analyzed for cell count. 3. Alcoholic cirrhosis with portal hypertension. 4. Thrombocytopenia, secondary to underlying chronic liver disease/hypersplenism. 5. Remote history of alcohol use, quit drinking several years ago. RECOMMENDATIONS: 1. Continue with pain medications. 2. Clear liquid diet. 3. Will start him on empiric antibiotics for possible spontaneous bacterial peritonitis, which happens in high incidence in this clinical setting. 4. Monitor labs closely. 5. Continue current diuretic regimen with Lasix 40 mg every 2 days and Aldactone 50 mg every 2 days. We will follow with you closely. Thank you for this consultation. KEYLA / JESSYN: [id number] /
[2020-09-21 20:13] LABS: Glucose,Whole Blood 83 mg/dL (75-99)
[2020-09-21] MEDS ORDERED: IPRATROPIUM-ALBUTEROL 3 ML NEB INHALATION PRN (21:21)
[2020-09-22] MEDS: HYDROmorphone 1 MG/ML 1 ML SYRINGE IVP PRN ×2 (02:43→05:48)
[2020-09-22 05:16] LABS: Anisocytosis Slight; HCT 28.9 % (39.0-53.0); HGB 9.4 gm/dL (13.0-17.5); MCH 27.2 pg (25.0-35.0); MCHC 32.5 g/dL (31.0-37.0); MCV 83.7 fL (80.0-100.0); Mean Platelet Volume 7.2; Poikilocytosis Slight; RBC 3.46 m/uL (4.30-5.90); RDW 18.5 % (11.5-15.5); WBC 17.8 k/uL (3.8-10.6)
[2020-09-22 05:17] LABS: Platelet Count 33 k/uL (150-450)
[2020-09-22] MEDS: LEVOTHYROXINE 50 MCG TAB PO SCH (05:46)
[2020-09-22 07:25] LABS: Glucose,Whole Blood 69 mg/dL (75-99)
[2020-09-22] MEDS: IPRATROPIUM-ALBUTEROL 3 ML NEB INHALATION SCH ×4 (07:32→21:06)
[2020-09-22 07:42] LABS: Glucose,Whole Blood 68 mg/dL (75-99)
[2020-09-22 08:00] LABS: Glucose,Whole Blood 75 mg/dL (75-99)
[2020-09-22] MEDS: INSULIN ASPART (NovoLOG) 100 UNIT/ML VIAL SQ SCH ×11 (08:09→20:59)
[2020-09-22 08:47] LABS: Glucose,Whole Blood 96 mg/dL (75-99)
[2020-09-22] MEDS: PANTOPRAZOLE 40 MG/10 ML VIAL IV SCH (09:10)
[2020-09-22] MEDS: SILDENAFIL 20 MG TAB PO SCH ×3 (09:11→21:07)
[2020-09-22 09:56] LABS: African American GFR (CKD) 59.8 (60.0-200.0); Albumin 2.5 g/dL (3.80-4.90); Albumin/Globulin Ratio 1.39 (1.60-3.17); Anion Gap 14.5 mmol/L (4.00-12.00); Calcium 7.8 mg/dL (8.7-10.3); Carbon Dioxide 14.5 mmol/L (21.6-31.8); Globulin 1.8 g/dL (1.6-3.3); Non-African American GFR(CKD) 51.6 (60.0-200.0); Potassium 3.7 mmol/L (3.5-5.5); Total Bilirubin 5.4 mg/dL (0.3-1.2); Total Protein 4.3 g/dL (6.2-8.2)
[2020-09-22] MEDS: ALBUMIN HUMAN 25% 50 ML in EMPTY BAG 1 BAG IVPB SCH ×4 (10:22→21:00)
[2020-09-22] MEDS: MIDODRINE 5 MG TAB PO SCH ×3 (10:22→17:54)
[2020-09-22 12:10] LABS: Glucose,Whole Blood 148 mg/dL (75-99)
[2020-09-22] MEDS ORDERED: INSULIN ASPART (NovoLOG) 100 UNIT/ML VIAL SQ SCH (12:30)
[2020-09-22] MEDS: metroNIDAZOLE-NS PMX 500 MG in SALINE 1 100ML.BAG IVPB SCH ×3 (12:40→23:32)
[2020-09-22] MEDS: INSULIN DETEMIR (LEVEMIR) 100 UNIT/ML SYR SQ SCH (12:41)
--- NOTE | 2020-09-22 13:25 | P.PN ---
Subjective Progress Note Date: 09/22/20 This is a 44-year-old male patient of Dr. Sarmad Linn. He has history of alcohol liver cirrhosis with portal hypertension and previous GI bleeding, hypertension and gastritis, pancreatitis, spinal stenosis and peripheral neuropathy, hypothyroidism. Patient also has chronic back pain and was under the care of Dr. Lagunas but violated pain contract and no longer seen by pain management. He is also known to Dr. Ghazal Leiva from previous EGDs in the past finding gastritis consistent with portal gastropathy but no gastric or esophageal varices or active bleeding. He has had multipe admissions for acute GI bleed. He had admission for right leg abscess requiring I&D in December 2017. Patient has had multiple admissions for acute pancreatitis with worsening ascites. Most recently, hospitalizations have been for ascites and therapeutic paracentesis. Patient has been following with [facility] for liver failure and evaluation for liver transplant. Patient complains of abdominal pain and abdominal distention. He needs to have paracentesis done early and he has an appointment with [facility] but could not wait for his appointment. Patient came into [facility] emergency center for evaluation. He was afebrile, heart rate 114, the pressure 108/78, pulse ox 98% on room air. WBC 8.2, hemoglobin 11.2, platelet count 58. Sodium 129, potassium 4.1, chloride 103, CO2 14, BUN 38 and creatinine 1.42. Blood sugar 190. Phosphorus 3.1. Magnesium 1.5 total bilirubin 2.1, AST 67, ALT 16, complaint phosphatase 78. CK less than 20. Amylase 296. Lipase 1415. Serum alcohol less than 10. Ammonia level XXVII. Patient has been admitted to the MedSur floor, consult with GI as well as interventional radiology for therapeutic Alvarado T-System. Patient is currently nothing by mouth. 09/21: Patient underwent paracentesis yesterday with removal of 8.2 L of fluid. He continues to complain of abdominal pain and Dilaudid will be increased to 1- 1/2 mg every 3 hours. Patient has been afebrile, heart rate 109, blood pressure 92/59 to 77/56. Pulse ox 93% on 2 L. Patient is currently on clear liquid diet which will be continued. GI is on consult and following the patient. Repeat blood work reveals a lipase of 520. Blood sugars have been running between 260 and 431. It appears the patient did not receive his Levemir yesterday until 11: 00 today and he also was given IV Solu-Medrol in the emergency center. Levemir has been resumed and we are adding in NovoLog 5 units with meals and NovoLog scale is already in place. IV fluids discontinued. Repeat blood work ordered for tomorrow and anticipate discharge home tomorrow. 09/22: Patient evaluated, lying in bed still has complaints of continued abdominal pain. Patient was noted to be hypotensive blood pressure was 80/55. Patient apparently was receiving midodrine at home, will restart midodrine 10 mg 3 times a day. Currently Dilaudid on hold due to hypotension, once blood pre ssure is above 110 systolic will restart Dilaudid. Patient also noted to have an elevated white count at 17.8, hemoglobin 9.4, creatinine 1.6, BUN 56, lipase 140, obtain 4.3. Patient will be started on protein supplements as well as albumin every 8 hours for 6 doses. Flagyl ordered for concerns for peritonitis. Patient was also hypoglycemic insulin has been adjusted will decrease NovoLog to 2 units 3 times a day and decrease Levemir to 20 units daily. Discussion with patient today regarding overall poor prognosis, patient would like to consult with palliative care, consult placed Objective - Vital Signs Vital signs: Vital Signs Temp 98.4 F 09/22/20 04:30 Pulse 118 H 09/22/20 07:48 Resp 20 09/22/20 04:30 BP 86/54 09/22/20 05:38 Pulse Ox 97 09/22/20 07:34 Intake & Output 09/21/20 09/22/20 09/22/20 18:59 06:59 18:59 Intake Total 50 1000 Balance 50 1000 Intake: Intake, IV Titration 50 Amount cefTRIAXone 1 gm In 50 Sodium Chloride 0.9% 50 ml @ 100 mls/hr IVPB Q24HR [facility] Rx#:[id number] Oral 1000 Other: Voiding Method Urinal Toilet Urinal # Voids 1 - Exam PHYSICAL EXAMINATION Gen: This is a thin 44-year-old male. Patient is resting in bed and appears to be comfortable and in no acute distress. HEENT: Head is atraumatic, normocephalic. Pupils equal, round. Sclerae is anicteric. NECK: Supple. No JVD. No lymphadenopathy. No thyromegaly. LUNGS: Clear to auscultation. No wheezes or rhonchi. No intercostal retractions HEART: Regular rate and rhythm. No murmur ABDOMEN: Abdominal distention and ascites significantly improved. Bowel sounds are present. No masses. Generalized abdominal tenderness. Large umbilical hernia with varicose veins. EXTREMITIES: No pedal edema. No calf tenderness. NEUROLOGICAL: Patient is awake, alert and oriented x3. Cranial nerves 2 through 12 are grossly intact - Labs CBC & Chem 7: 09/22/20 04:02 09/22/20 04:02 Labs: Abnormal Lab Results - Last 24 Hours (Table) 09/21/20 09/21/20 09/21/20 Range/Units 05:54 11:20 17:04 WBC (3.8-10.6) k/uL RBC (4.30-5.90) m/uL Hgb (13.0-17.5) gm/dL Hct (39.0-53.0) % RDW (11.5-15.5) % Plt Count (150-450) k/uL POC Glucose (mg/dL) 431 H 148 H (75-99) mg/dL Hemoglobin A1c 7.5 H (4.0-6.0) % 09/22/20 09/22/20 09/22/20 Range/Units 04:02 07:16 07:39 WBC 17.8 H (3.8-10.6) k/uL RBC 3.46 L (4.30-5.90) m/uL Hgb 9.4 L (13.0-17.5) gm/dL Hct 28.9 L (39.0-53.0) % RDW 18.5 H (11.5-15.5) % Plt Count 33 L (150-450) k/uL POC Glucose (mg/dL) 69 L 68 L (75-99) mg/dL Hemoglobin A1c (4.0-6.0) % Assessment and Plan Plan: 1. Acute abdominal pain secondary to pancreatitis and worsening ascites status post paracentesis. Consult with interventional radiology and GI appreciated. Pain medication Dilaudid increased to 1-1/2 mg IV push every 3 hours as needed 2. Acute on chronic pancreatitis. Discontinue IV fluids, continue clear liquid diet only, continue Dilaudid, repeat lab work in the morning, consult with GI. 3. History of alcoholic liver disease with portal hypertension and previous episodes of acute GI bleed with acute blood loss anemia resulting in multiple hospitalizations for GI bleeding from esophageal varices status post banding. Continue Protonix changed to IV daily. Continue Lasix, Aldactone. 4. Chronic ascites and scheduled paracentesis. Continue Aldactone and Lasix. 5. 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 6. Spinal stenosis with peripheral neuropathy. 7. History of tobacco use and dependence. 8. Hypothyroidism. Continue levothyroxine 50 g daily. 9. Recurrent depression. 10. Peripheral neuropathy secondary to alcoholism and spinal stenosis. 11. 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 GI prophylaxis. Protonix. 13. Severe protein calorie malnutrition. 13. DVT prophylaxis. No heparin due to thrombocytopenia. SCDs and ANDREEA hose and early ambulation The above impression and plan of care have been discussed and directed by signing physician. Rekha Enrique nurse practitioner acting as scribe for signing physician.
[2020-09-22] MEDS: KETOROLAC 15 MG/ML 1 ML VIAL IVP PRN ×2 (16:14→22:22)
[2020-09-22] MEDS: DICYCLOMINE 10 MG CAP PO SCH ×2 (16:16→21:08)
[2020-09-22 17:33] LABS: Glucose,Whole Blood 155 mg/dL (75-99)
[2020-09-22 21:11] LABS: Glucose,Whole Blood 109 mg/dL (75-99)
[2020-09-23] MEDS: ALBUMIN HUMAN 25% 50 ML in EMPTY BAG 1 BAG IVPB SCH ×6 (02:56→20:10)
[2020-09-23] MEDS: HYDROmorphone 1 MG/ML 1 ML SYRINGE IVP PRN ×8 (04:15→22:14)
[2020-09-23] MEDS: metroNIDAZOLE-NS PMX 500 MG in SALINE 1 100ML.BAG IVPB SCH ×3 (06:09→11:10)
[2020-09-23] MEDS: LEVOTHYROXINE 50 MCG TAB PO SCH (06:12)
[2020-09-23] MEDS: IPRATROPIUM-ALBUTEROL 3 ML NEB INHALATION SCH ×4 (07:11→19:43)
[2020-09-23 07:30] LABS: Glucose,Whole Blood 85 mg/dL (75-99)
[2020-09-23] MEDS: INSULIN ASPART (NovoLOG) 100 UNIT/ML VIAL SQ SCH ×7 (07:46→20:08)
[2020-09-23] MEDS: PANTOPRAZOLE 40 MG/10 ML VIAL IV SCH (08:37)
[2020-09-23] MEDS: DICYCLOMINE 10 MG CAP PO SCH (08:37)
[2020-09-23] MEDS: MIDODRINE 5 MG TAB PO SCH ×3 (08:38→16:35)
[2020-09-23] MEDS: FUROSEMIDE 40 MG TAB PO SCH (08:38)
[2020-09-23] MEDS: SPIRONOLACTONE 25 MG TAB PO SCH (08:38)
[2020-09-23] MEDS: SILDENAFIL 20 MG TAB PO SCH ×3 (08:38→22:14)
--- NOTE | 2020-09-23 09:37 | PN ---
PROGRESS NOTE DATE OF SERVICE: 09/23/2020 INTERVAL HISTORY: Patient is a 44-year-old pleasant white male with history of alcoholic cirrhosis of the liver with portal hypertension, refractory ascites, requiring large-volume paracentesis on a frequent basis, admitted to the hospital with severe abdominal pain for the last 3- 4 days duration. He was noted to have mild acute pancreatitis, which is gradually improving. He continues to have persistent abdominal pain. He was started on broad- spectrum antibiotics for possibility of spontaneous bacterial peritonitis and presently on ceftriaxone and Flagyl. He still has abdominal pain and requesting pain medications every 2-3 hours. He denies any nausea, vomiting. He has been having frequent urination. Has 1 or 2 bowel movements daily. No rectal bleeding or melena. PHYSICAL EXAMINATION: VITAL SIGNS: Blood pressure 97/57, pulse 79, temperature 98. HEENT: Examination unremarkable. Conjunctivae are pink. Sclerae anicteric. Oral cavity no lesions. NECK: No JVD or lymph node enlargement. CHEST: Clear to auscultation. HEART: Regular rate and rhythm. ABDOMEN: Distended. There was a large umbilical hernia noted. There was some free fluid noted. There was mild diffuse tenderness. EXTREMITIES: No pedal edema noted. SKIN: No rashes. NEURO: He is alert and oriented x3. No focal deficits. LABS: From today BUN is 56, creatinine 1.6, WBC 17.8, hemoglobin 9.4, platelets are 33,000. Lipase is down to 140. AST and ALT are 78 and 30 respectively and T-bilirubin is up to 5.4. IMPRESSION: 1. Alcoholic cirrhosis of the liver with gradual decompensation. 2. Refractory ascites requiring large-volume paracentesis on a weekly basis. Last one was done 4 days ago and8.2 L of fluid was removed. 3. Diffuse abdominal pain related to acute pancreatitis. Possibility of SBP cannot be excluded. He was started on empiric Rocephin and Flagyl. 4. Leukocytosis. 5. Chronic kidney disease/acute kidney injury. Presently on Lasix 40 mg and Aldactone 50 mg every 2 days. Nephrology following the patient. RECOMMENDATIONS: 1. Continue with broad-spectrum antibiotics. 2. Continue with current dose of diuretics. 3. Pain medications as needed. 4. Keep him on a clear liquid diet for today. 5. We will follow with you closely. MMODL / IJN: [id number] /
[2020-09-23] MEDS: PIPERACILLIN-TAZOBACTAM 3.375 GM in SODIUM CHLORIDE 0.9% 100 ML IVPB SCH ×2 (09:54→16:05)
[2020-09-23] MEDS: IOPAMIDOL CONTRAST (ORAL USE) VIAL PO PRN ×2 (10:00→11:06)
[2020-09-23] MEDS: ONDANSETRON 4 MG/2 ML VIAL IVP PRN (10:05)
--- NOTE | 2020-09-23 11:24 | P.PN ---
Subjective This is a 44-year-old male patient of Dr. Sarmad Linn. He has history of alcohol liver cirrhosis with portal hypertension and previous GI bleeding, hypertension and gastritis, pancreatitis, spinal stenosis and peripheral neuropathy, hypothyroidism. Patient also has chronic back pain and was under the care of Dr. Lagunas but violated pain contract and no longer seen by pain management. He is also known to Dr. Ghazal Leiva from previous EGDs in the past finding gastritis consistent with portal gastropathy but no gastric or esophageal varices or active bleeding. He has had multipe admissions for acute GI bleed. He had admission for right leg abscess requiring I&D in December 2017. Patient has had multiple admissions for acute pancreatitis with worsening ascites. Most recently, hospitalizations have been for ascites and therapeutic paracentesis. Patient has been following with [facility] for liver failure and evaluation for liver transplant. Patient complains of abdominal pain and abdominal distention. He needs to have paracentesis done early and he has an appointment with [facility] but could not wait for his appointment. Patient came into [facility] emergency center for evaluation. He was afebrile, heart rate 114, the pressure 108/78, pulse ox 98% on room air. WBC 8.2, hemoglobin 11.2, platelet count 58. Sodium 129, potassium 4.1, chloride 103, CO2 14, BUN 38 and creatinine 1.42. Blood sugar 190. Phosphorus 3.1. Magnesium 1.5 total bilirubin 2.1, AST 67, ALT 16, complaint phosphatase 78. CK less than 20. Amylase 296. Lipase 1415. Serum alcohol less than 10. Ammonia level XXVII. [facility], consult with GI as well as interventional radiology for therapeutic Alvarado T-System. Patient is currently nothing by mouth. 09/21: Patient underwent paracentesis yesterday with removal of 8.2 L of fluid. He continues to complain of abdominal pain and Dilaudid will be increased to 1- 1/2 mg every 3 hours. Patient has been afebrile, heart rate 109, blood pressure 92/59 to 77/56. Pulse ox 93% on 2 L. Patient is currently on clear liquid diet which will be continued. GI is on consult and following the patient. Repeat bl ood work reveals a lipase of 520. Blood sugars have been running between 260 and 431. It appears the patient did not receive his Levemir yesterday until 11:00 today and he also was given IV Solu-Medrol in the emergency center. Levemir has been resumed and we are adding in NovoLog 5 units with meals and NovoLog scale is already in place. IV fluids discontinued. Repeat blood work ordered for tomorrow and anticipate discharge home tomorrow. 09/22: Patient evaluated, lying in bed still has complaints of continued abdominal pain. Patient was noted to be hypotensive blood pressure was 80/55. Patient apparently was receiving midodrine at home, will restart midodrine 10 mg 3 times a day. Currently Dilaudid on hold due to hypotension, once blood pressure is above 110 systolic will restart Dilaudid. Patient also noted to have an elevated white count at 17.8, hemoglobin 9.4, creatinine 1.6, BUN 56, lipase 140, obtain 4.3. Patient will be started on protein supplements as well as albumin every 8 hours for 6 doses. Flagyl ordered for concerns for peritonitis. Patient was also hypoglycemic insulin has been adjusted will decrease NovoLog to 2 units 3 times a day and decrease Levemir to 20 units daily. Discussion with patient today regarding overall poor prognosis, patient would like to consult with palliative care, consult placed 09/23: Patient evaluated this morning, has complaints of worsening abdominal pain. Antibiotics will be changed to Zosyn along with Flagyl. Will also obtain a CT of the abdomen with oral contrast. Patient continues to be hypotensive, blood pressure 80/55, he continues with midodrine 10 mg 3 times a day. He was also started on albumin yesterday. Insulin was decreased yesterday to due to hypoglycemia, blood sugars much better running between 70 and 150. Patient is asking to be transferred to [facility] where he sees gastroenterology. We'll try to arrange for accommodations to be transferred to [facility] Objective - Vital Signs Vital signs: Vital Signs Temp 98.0 F 09/23/20 04:19 Pulse 106 H 09/23/20 07:24 Resp 22 09/23/20 04:19 BP 84/48 09/23/20 04:19 Pulse Ox 90 L 09/23/20 07:13 Intake & Output 09/22/20 09/23/20 09/23/20 18:59 06:59 18:59 Intake Total 800 600 Balance 800 600 Intake: Intake, IV Titration 400 Amount Albumin Human 25% 50 ml 200 In Empty Bag 1 bag @ 50 mls/hr IVPB Q8H AWA Rx#: [id number] metroNIDAZOLE-NS PMX 500 200 mg In Saline 1 100ml.bag @ 100 mls/hr IVPB Q6HR AWA Rx#:[id number] Oral 400 600 Other: Voiding Method Toilet Toilet Urinal Urinal # Voids 2 2 - Exam PHYSICAL EXAMINATION Gen: This is a thin 44-year-old male. HEENT: Head is atraumatic, normocephalic. Pupils equal, round. Sclerae is anicteric. NECK: Supple. No JVD. No lymphadenopathy. No thyromegaly. LUNGS: Clear to auscultation. No wheezes or rhonchi. No intercostal retractions HEART: Regular rate and rhythm. No murmur ABDOMEN: Abdominal distention and ascites. Bowel sounds are present. No masses. Generalized abdominal tenderness. Large umbilical hernia with varicose veins. EXTREMITIES: No pedal edema. No calf tenderness. NEUROLOGICAL: Patient is awake, alert and oriented x3. Cranial nerves 2 through 12 are grossly intact - Labs CBC & Chem 7: 09/22/20 04:02 09/22/20 04:02 Labs: Abnormal Lab Results - Last 24 Hours (Table) 09/22/20 09/22/20 09/22/20 Range/Units 04:02 12:06 17:31 Sodium 131 L (135-145) mmol/L Carbon Dioxide 14.5 L (21.6-31.8) mmol/L Anion Gap 14.50 H (4.00-12.00) mmol/L BUN 56.0 H (9.0-27.0) mg/dL Creatinine 1.6 H (0.6-1.5) mg/dL Est GFR (CKD-EPI)AfAm 59.8 L (60.0-200.0) Est GFR (CKD-EPI)NonAf 51.6 L (60.0-200.0) BUN/Creatinine Ratio 35.00 H (12.00-20.00) Ratio POC Glucose (mg/dL) 148 H 155 H (75-99) mg/dL Calcium 7.8 L (8.7-10.3) mg/dL Total Bilirubin 5.4 H (0.3-1.2) mg/dL AST 78 H (14-35) U/L Total Protein 4.3 L (6.2-8.2) g/dL Albumin 2.50 L (3.80-4.90) g/dL Albumin/Globulin Ratio 1.39 L (1.60-3.17) g/dL Lipase 140 H (14-60) U/L 09/22/20 Range/Units 20:58 Sodium (135-145) mmol/L Carbon Dioxide (21.6-31.8) mmol/L Anion Gap (4.00-12.00) mmol/L BUN (9.0-27.0) mg/dL Creatinine (0.6-1.5) mg/dL Est GFR (CKD-EPI)AfAm (60.0-200.0) Est GFR (CKD-EPI)NonAf (60.0-200.0) BUN/Creatinine Ratio (12.00-20.00) Ratio POC Glucose (mg/dL) 109 H (75-99) mg/dL Calcium (8.7-10.3) mg/dL Total Bilirubin (0.3-1.2) mg/dL AST (14-35) U/L Total Protein (6.2-8.2) g/dL Albumin (3.80-4.90) g/dL Albumin/Globulin Ratio (1.60-3.17) g/dL Lipase (14-60) U/L Assessment and Plan Plan: 1. Acute abdominal pain secondary to pancreatitis and worsening ascites status post paracentesis. Consult with interventional radiology and GI appreciated. Pain medication Dilaudid increased to 1-1/2 mg IV push every 3 hours as needed 2. Acute on chronic pancreatitis. Discontinue IV fluids, continue clear liquid diet only, continue Dilaudid, repeat lab work in the morning, consult with GI. 3. History of alcoholic liver disease with portal hypertension and previous episodes of acute GI bleed with acute blood loss anemia resulting in multiple hospitalizations for GI bleeding from esophageal varices status post banding. Continue Protonix changed to IV daily. Continue Lasix, Aldactone. 4. Chronic ascites and scheduled paracentesis. Continue Aldactone and Lasix. 5. 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 6. Spinal stenosis with peripheral neuropathy. 7. History of tobacco use and dependence. 8. Hypothyroidism. Continue levothyroxine 50 g daily. 9. Recurrent depression. 10. Peripheral neuropathy secondary to alcoholism and spinal stenosis. 11. 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 GI prophylaxis. Protonix. 13. Severe protein calorie malnutrition. 14. DVT prophylaxis. No heparin due to thrombocytopenia. SCDs and ANDREEA rosado nd early ambulation 15. Peritonitis. Continue IV Flagyl and Zosyn, will obtain CT of abdomen The above impression and plan of care have been discussed and directed by signing physician. Rekha Enrique nurse practitioner acting as scribe for signing physician.
[2020-09-23 12:07] LABS: Glucose,Whole Blood 118 mg/dL (75-99)
[2020-09-23] MEDS: INSULIN DETEMIR (LEVEMIR) 100 UNIT/ML SYR SQ SCH (12:13)
--- NOTE | 2020-09-23 14:33 | CT ---
EXAMINATION TYPE: CT abdomen pelvis wo con DATE OF EXAM: 09/23/2020 COMPARISON: 08/11/2020 HISTORY: Peritonitis TECHNIQUE: CT scan of the abdomen and pelvis performed without contrast CT DLP: 411.7 mGycm Automated exposure control for dose reduction was used. FINDINGS: Lack of IV contrast limits evaluation. Groundglass opacities are seen in the lungs bilaterally in addition to centrilobular emphysema COPD c hanges. The cardiac chambers are low in attenuation suggesting anemia. Liver is shrunken and cirrhotic the spleen is enlarged. The main pancreatic duct is dilated. Chronic pancreatitis related calcifications seen. Adrenal glands are thickened. The gallbladder is not identi fied. There is a stent in the distal common bile duct. There is air in the extra and intrahepatic biliary t ree. There are no calculi within the renal collecting system. Evaluation of the ureters is difficult due t o large amount of ascites. The urinary bladder appears unremarkable. There is no hydronephrosis. There is air in the rectum, sigmoid colon and descending colon. There is no evidence of intestinal ob struction. Few contrast distended small bowel loops are seen in the abdomen. No free contrast is seen flowing in the peritoneal cavity. There is a large amount of ascites in the abdomen. There is a small ventral abdominal wall hernia wit h herniation of the ascites into the anterior abdominal wall. No definite free intra-abdominal air. A few air foci are seen in the right lower quadrant within the cecum and some of those are in the posterior wall therefore I question pneumatosis. Atherosclerotic calcifications are seen in the nonaneurysmal aorta. No acute osseous abnormality. No suspicious osseous lesion. Mild degenerative changes seen in the spi ne. IMPRESSION: 1. GROUNDGLASS OPACITIES IN THE BILATERAL LUNGS CONCERNING FOR MULTIFOCAL PNEUMONIA. 2. CIRRHOTIC APPEARING LIVER. 3. DILATED MAIN PANCREATIC DUCT WITH EVIDENCE OF CHRONIC PANCREATITIS. 4. COMMON BILE DUCT STENT WITH AIR IN THE BILIARY TREE. 5. QUESTIONABLE PNEUMATOSIS IN THE CECUM/PROXIMAL DESCENDING COLON. NO IONA FREE ABDOMINAL AIR. 6. LARGE AMOUNT OF ASCITES. 7. VENTRAL MIDLINE ABDOMINAL HERNIA WITH HERNIATION OF FAT AND ASCITES FLUID.
[2020-09-23] MEDS: LEVOFLOXACIN 500MG-D5W PMX 500 MG in DEXTROSE/WATER 1 100ML.BAG IVPB SCH (15:44)
[2020-09-23] MEDS: LIPASE 5,000/PROTEASE 17,000/AMYLASE 24,000 PO SCH (16:35)
[2020-09-23 17:54] LABS: Glucose,Whole Blood 78 mg/dL (75-99)
[2020-09-23 20:04] LABS: Glucose,Whole Blood 106 mg/dL (75-99)
[2020-09-24] MEDS: HYDROmorphone 1 MG/ML 1 ML SYRINGE IVP PRN ×11 (00:14→23:56)
[2020-09-24] MEDS: PIPERACILLIN-TAZOBACTAM 3.375 GM in SODIUM CHLORIDE 0.9% 100 ML IVPB SCH ×4 (00:14→23:14)
[2020-09-24] MEDS: ALBUMIN HUMAN 25% 50 ML in EMPTY BAG 1 BAG IVPB SCH ×4 (02:14→19:40)
[2020-09-24 05:58] LABS: Anisocytosis Slight; Basophils % (A) 0 %; Eosinophils % (A) 1 %; HCT 25.2 % (39.0-53.0); HGB 8.3 gm/dL (13.0-17.5); Hypochromasia Slight; Lymphocytes # (A) 0.2 k/uL (1.0-4.8); Lymphocytes % (A) 3 %; MCH 27.7 pg (25.0-35.0); MCHC 32.9 g/dL (31.0-37.0); MCV 84.2 fL (80.0-100.0); Mean Platelet Volume 8.2; Monocytes # (A) 0.1 k/uL (0-1.0); Monocytes % (A) 3 %; Neutrophils # (A) 4.1 k/uL (1.3-7.7); Neutrophils % (A) 92 %; Poikilocytosis Slight; RBC 2.99 m/uL (4.30-5.90); RDW 18.7 % (11.5-15.5); WBC 4.4 k/uL (3.8-10.6)
[2020-09-24 05:59] LABS: Platelet Count 20 k/uL (150-450)
[2020-09-24] MEDS: LEVOTHYROXINE 50 MCG TAB PO SCH (06:08)
[2020-09-24 06:25] LABS: ALT 12 U/L (4-49); AST 27 U/L (17-59); African American GFR (CKD) 69 (>60 ml/min/1.73 sqM); Albumin 2.9 g/dL (3.5-5.0); Albumin/Globulin Ratio 1.5; Alkaline Phosphatase 60 U/L (38-126); Anion Gap 12 mmol/L; Blood Urea Nitrogen 54 mg/dL (9-20); Carbon Dioxide 15 mmol/L (22-30); Chloride 101 mmol/L (98-107); Glucose 104 mg/dL (74-99); Non-African American GFR(CKD) 60 (>60 ml/min/1.73 sqM); Potassium 3.8 mmol/L (3.5-5.1); Sodium 128 mmol/L (137-145); Total Bilirubin 6.5 mg/dL (0.2-1.3); Total Protein 4.9 g/dL (6.3-8.2)
[2020-09-24 07:10] LABS: Glucose,Whole Blood 125 mg/dL (75-99)
[2020-09-24] MEDS: IPRATROPIUM-ALBUTEROL 3 ML NEB INHALATION SCH ×4 (07:12→18:40)
[2020-09-24] MEDS: INSULIN ASPART (NovoLOG) 100 UNIT/ML VIAL SQ SCH ×7 (07:27→21:46)
[2020-09-24] MEDS: MIDODRINE 5 MG TAB PO SCH ×3 (07:55→17:29)
[2020-09-24] MEDS: LIPASE 5,000/PROTEASE 17,000/AMYLASE 24,000 PO SCH ×3 (07:55→17:29)
[2020-09-24] MEDS: PANTOPRAZOLE 40 MG/10 ML VIAL IV SCH (07:56)
[2020-09-24] MEDS: SILDENAFIL 20 MG TAB PO SCH ×4 (07:56→21:20)
[2020-09-24] MEDS: INSULIN DETEMIR (LEVEMIR) 100 UNIT/ML SYR SQ SCH ×2 (07:56→07:58)
[2020-09-24 11:06] LABS: INR 1.9 (<1.2)
[2020-09-24] MEDS: DEXTROSE 5% IN WATER 1,000 ML with SODIUM BICARB (1 MEQ/ML) 150 ML IV SCH ×2 (11:20→17:30)
[2020-09-24 12:19] LABS: Glucose,Whole Blood 205 mg/dL (75-99)
--- NOTE | 2020-09-24 13:21 | P.PN ---
Subjective Progress Note Date: 09/24/20 HISTORY OF PRESENT ILLNESS This is a 44-year-old male patient of Dr. Sarmad Linn. He has history of alcohol liver cirrhosis with portal hypertension and previous GI blee ding, hypertension and gastritis, pancreatitis, spinal stenosis and peripheral neuropathy, hypothyroidism. Patient also has chronic back pain and was under the care of Dr. Lagunas but violated pain contract and no longer seen by pain management. He is also known to Dr. Ghazal Leiva from previous EGDs in the past finding gastritis consistent with portal gastropathy but no gastric or esophageal varices or active bleeding. He has had multipe admissions for acute GI bleed. He had admission for right leg abscess requiring I&D in December 2017. Patient has had multiple admissions for acute pancreatitis with worsening ascites. Most recently, hospitalizations have been for ascites and therapeutic paracentesis. Patient has been following with [facility] for liver failure and evaluation for liver transplant. Patient complains of abdominal pain and abdominal distention. He needs to have paracentesis done early and he has an appointment with [facility] but could not wait for his appointment. Patient came into [facility] emergency center for evaluation. He was afebrile, heart rate 114, the pressure 108/78, pulse ox 98% on room air. WBC 8.2, hemoglobin 11.2, platelet count 58. Sodium 129, potassium 4.1, chloride 103, CO2 14, BUN 38 and creatinine 1.42. Blood sugar 190. Phosphorus 3.1. Magnesium 1.5 total bilirubin 2.1, AST 67, ALT 16, complaint phosphatase 78. CK less than 20. Amylase 296. Lipase 1415. Serum alcohol less than 10. Ammonia level XXVII. Patient has been admitted to the [facility] floor, consult with GI as well as interventional radiology for therapeutic Alvarado T-System. Patient is currently nothing by mouth. 09/21: Patient underwent paracentesis yesterday with removal of 8.2 L of fluid. He continues to complain of abdominal pain and Dilaudid will be increased to 1- 1/2 mg every 3 hours. Patient has been afebrile, heart rate 109, blood pressure 92/59 to 77/56. Pulse ox 93% on 2 L. Patient is currently on clear liquid diet which will be continued. GI is on consult and following the patient. Repeat blood work reveals a lipase of 520. Blood sugars have been running between 260 and 431. It appears the patient did not receive his Levemir yesterday until 11:00 today and he also was given IV Solu-Medrol in the emergency center. Levemir has been resumed and we are adding in NovoLog 5 units with meals and NovoLog scale is already in place. IV fluids discontinued. Repeat blood work ordered for tomorrow and anticipate discharge home tomorrow. 09/22: Patient evaluated, lying in bed still has complaints of continued abdominal pain. Patient was noted to be hypotensive blood pressure was 80/55. Patient apparently was receiving midodrine at home, will restart midodrine 10 mg 3 times a day. Currently Dilaudid on hold due to hypotension, once blood pressure is above 110 systolic will restart Dilaudid. Patient also noted to have an elevated white count at 17.8, hemoglobin 9.4, creatinine 1.6, BUN 56, lipase 140, obtain 4.3. Patient will be started on protein supplements as well as albumin every 8 hours for 6 doses. Flagyl ordered for concerns for peritonitis. Patient was also hypoglycemic insulin has been adjusted will decrease NovoLog to 2 units 3 times a day and decrease Levemir to 20 units daily. Discussion with patient today regarding overall poor prognosis, patient would like to consult with palliative care, consult placed 09/23: Patient evaluated this morning, has complaints of worsening abdominal pain. Antibiotics will be changed to Zosyn along with Flagyl. Will also obtain a CT of the abdomen with oral contrast. Patient continues to be hypotensive, blood pressure 80/55, he continues with midodrine 10 mg 3 times a day. He was also started on albumin yesterday. Insulin was decreased yesterday to due to hypoglycemia, blood sugars much better running between 70 and 150. Patient is asking to be transferred to [facility] where he sees gastroenterology. We'll try to arrange for accommodations to be transferred to [facility] 09/24: Patient complains of continued pain and medications have been adjusted to Dilaudid 1-1/2 mg every 2 hours as needed. His blood pressure has been on the low side and Revatio decreased to 10 mg 3 times daily. Patient is or would be normally scheduled for paracentesis as an outpatient which we'll plan to have done today. Platelets ordered prior to and most likely patient will need albumin after. Regarding transferred to [facility], patient has not been accepted there as he is receiving care here that would be provided at the other facility. Patient has been afebrile, heart rate 98, blood pressure 97/64, pulse ox 91%. Blood sugars are running 104-205. INR today is 1.9. Hemoglobin 8.3. Sodium 128, BUN 54 creatinine 1.43. Platelets are at 20. CAT scan of the abdomen and pelvis revealed groundglass opacities in the bilateral lungs concerning for multifocal pneumonia. Cirrhotic-appearing liver. Dilated main pancreatic duct with evidence of chronic pancreatitis., Bile duct stent with air in the biliary tree. Questionable pneumatosis in the cecum/proximal descending colon. No amador free abdominal air. Large amount of ascites. Ventral midline abdominal hernia with herniation of fat and ascites fluid. C onsult with Dr. Olvera added for pneumatosis intestinalis. Radiology consult for paracentesis. C. difficile toxin has been ordered. Patient has continued to have diarrhea. A bicarb drip has been ordered. REVIEW OF SYSTEMS reports Constitutional: Denies chills, Denies fatigue, Denies fever, Denies lethargy, Denies malaise, reports poor appetite, Denies weakness Eyes: denies blurred vision, denies pain Ears, nose, mouth and throat: Denies headache, Denies sore throat Cardiovascular: Denies chest pain, Denies decreased exercise tolerance, Denies dyspnea on exertion, Denies lightheadedness, Denies shortness of breath, Denies syncope Respiratory: Denies cough, Denies cough with sputum, Denies dyspnea, Denies hemoptysis, Denies home oxygen, Denies respiratory infections, Denies wheezing Gastrointestinal: Reports abdominal pain, reports abdominal distention Denies BRBPR, reports diarrhea, Denies melena, reports nausea, reports vomiting, re ports decreased appetite Genitourinary: Denies dysuria, Denies urinary hesitancy, Denies urinary retention, reports dark urine Musculoskeletal: Denies frequent falls, Denies gait dysfunction, Denies muscle weakness, Denies myalgias Integumentary: Denies pruritus, Denies rash, Denies wounds Neurological: Denies numbness, Denies weakness Psychiatric: Denies anxiety, Denies depression Endocrine: Denies fatigue, Denies weight change, hyperglycemia PHYSICAL EXAMINATION Gen: This is a thin 44-year-old male. Patient is resting in bed and appears to be comfortable and in no acute distress. HEENT: Head is atraumatic, normocephalic. Pupils equal, round. Sclerae is anicteric. NECK: Supple. No JVD. No lymphadenopathy. No thyromegaly. LUNGS: Clear to auscultation. No wheezes or rhonchi. No intercostal retraction s. HEART: Regular rate and rhythm. No murmur. ABDOMEN: Abdominal distention and ascites. Bowel sounds are present. No masses. Generalized abdominal tenderness. Large umbilical hernia with varicose veins. EXTREMITIES: No pedal edema. No calf tenderness. NEUROLOGICAL: Patient is awake, alert and oriented x3. Cranial nerves 2 through 12 are grossly intact. ASSESSMENT AND PLAN 1. Acute abdominal pain secondary to pancreatitis and worsening ascites status post paracentesis 09/20 with removal of 8.2 L. Consult with interventional radiology and GI appreciated. Pain medication Dilaudid increased to 1-1/2 mg IV push every 2 hours as needed. Repeat paracentesis today. 2. Acute on chronic pancreatitis. Discontinue IV fluids, continue clear liquid diet only, continue Dilaudid, repeat lab work in the morning, consult with GI. 3. History of alcoholic liver disease with portal hypertension and previous episodes of acute GI bleed with acute blood loss anemia resulting in multiple hospitalizations for GI bleeding from esophageal varices status post banding. Continue Protonix changed to IV daily. Continue Lasix, Aldactone. 4. Chronic ascites and scheduled paracentesis. Continue Aldactone and Lasix. 5. 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 6. Spinal stenosis with peripheral neuropathy. 7. History of tobacco use and dependence. 8. Hypothyroidism. Continue levothyroxine 50 g daily. 9. Recurrent depression. 10. Peripheral neuropathy secondary to alcoholism and spinal stenosis. 11. 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 Continue Lantus 24 units daily, additional dose of 10 units of NovoLog to be given with lunch, NovoLog 5 units with meals added and continue NovoLog scale. 12. GI prophylaxis. Protonix. 13. Severe protein calorie malnutrition. 13. DVT prophylaxis. No heparin due to thrombocytopenia. SCDs and ANDREEA hose and early ambulation. 15. Peritonitis. Continue IV Flagyl and Zosyn 16. Chronic hypotension. Revatio decreased to 10 mg 3 times daily. DISCHARGE PLAN Home Impression and plan of care have been directed as dictated by the signing physician. Giovana Kathleen nurse practitioner acting as scribe for signing physician. Objective - Vital Signs Vital signs: Vital Signs Temp 97.6 F 09/24/20 05:00 Pulse 110 H 09/24/20 07:25 Resp 18 09/24/20 05:00 BP 87/64 09/24/20 06:59 Pulse Ox 92 L 09/24/20 05:00 Intake & Output 09/23/20 09/24/20 09/24/20 18:59 06:59 18:59 Intake Total 2760 Output Total 300 Balance 2760 -300 Intake: Intake, IV Titration 600 Amount Albumin Human 25% 50 ml 100 In Empty Bag 1 bag @ 50 mls/hr IVPB Q8H AWA Rx#: [id number] Albumin Human 25% 50 ml 100 In Empty Bag 1 bag @ 50 mls/hr IVPB Q8H AWA Rx#: [id number] Levofloxacin 500Mg-D5w 100 Pmx 500 mg In Dextrose/ Water 1 100ml.bag @ 100 mls/hr IVPB Q24H AWA Rx#: [id number] Piperacillin-Tazobactam 3 200 .375 gm In Sodium Chloride 0.9% 100 ml @ 25 mls/hr IVPB Q8HR AWA Rx# :[id number] metroNIDAZOLE-NS PMX 500 100 mg In Saline 1 100ml.bag @ 100 mls/hr IVPB Q6HR AWA Rx#:[id number] Oral 2160 Output: Urine 300 Other: Voiding Method Toilet Toilet Urinal Urinal # Voids 4 - Labs CBC & Chem 7: 09/24/20 04:44 09/24/20 04:44 Labs: Abnormal Lab Results - Last 24 Hours (Table) 09/23/20 09/23/20 09/24/20 Range/Units 12:04 20:01 04:44 RBC 2.99 L (4.30-5.90) m/uL Hgb 8.3 L (13.0-17.5) gm/dL Hct 25.2 L (39.0-53.0) % RDW 18.7 H (11.5-15.5) % Plt Count 20 L (150-450) k/uL Lymphocytes # 0.2 L (1.0-4.8) k/uL Sodium (137-145) mmol/L Carbon Dioxide (22-30) mmol/L BUN (9-20) mg/dL Creatinine (0.66-1.25) mg/dL Glucose (74-99) mg/dL POC Glucose (mg/dL) 118 H 106 H (75-99) mg/dL Calcium (8.4-10.2) mg/dL Total Bilirubin (0.2-1.3) mg/dL Total Protein (6.3-8.2) g/dL Albumin (3.5-5.0) g/dL 09/24/20 09/24/20 Range/Units 04:44 07:08 RBC (4.30-5.90) m/uL Hgb (13.0-17.5) gm/dL Hct (39.0-53.0) % RDW (11.5-15.5) % Plt Count (150-450) k/uL Lymphocytes # (1.0-4.8) k/uL Sodium 128 L (137-145) mmol/L Carbon Dioxide 15 L (22-30) mmol/L BUN 54 H (9-20) mg/dL Creatinine 1.43 H (0.66-1.25) mg/dL Glucose 104 H (74-99) mg/dL POC Glucose (mg/dL) 125 H (75-99) mg/dL Calcium 8.0 L (8.4-10.2) mg/dL Total Bilirubin 6.5 H (0.2-1.3) mg/dL Total Protein 4.9 L (6.3-8.2) g/dL Albumin 2.9 L (3.5-5.0) g/dL
--- NOTE | 2020-09-24 14:17 | P.GSCN ---
History of Present Illness Consult date: 09/24/20 Reason for Consult: Abdominal pain, abnormal CT scan History of present illness: The patient is a 44-year-old man with cirrhosis and chronic pancreatitis. The patient has weekly large-volume paracentesis done due to refractory ascites. Typically this is done on Mondays. This was skipped last Thursday and he came into the ER midweek due to increasing pain and distention and had about 8 L of fluid drained. Typically after his paracentesis he has good relief of pain. The last few weeks however the pain will persist. Pain is across the upper abdomen. The patient says the persistent pain occurred shortly after he had a stenting of the pancreatic duct performed. He gets full easily and does not feel like eating. Typically he has some loose stools from taking lactulose. He has not noticed any blood in the stool or dark tarry stool. The patient was noted to have a jump in his WBC so Dr. Leiva started him on empiric antibiotics for possible spontaneous bacterial peritonitis. Review of Systems All systems: negative Past Medical History Past Medical History: Asthma, Diabetes Mellitus, GERD/Reflux, GI Bleed, Hypertension, Liver Disease, Thyroid Disorder Additional Past Medical History / Comment(s): Liver cirrhosis stage 4 portal htn, ETOH abuse, esophageal varicies, upper GI bleed, chronic thrombocytopenia, coagulopathy, pancytopenia, ascities, spinal stenosis: back/leg and feet pain, DDD, chronic back pain, neuropathy bilateral legs/feet, falls, bronchitis, 2010 Guillium [place], chronic pancreatitis, ascites, newly diagnosed diabetic [id number], pulmonary hypertension, thrombocytopenia, patient no longer on transplant list related to high pulmonary hypertension. History of Any Multi-Drug Resistant Organisms: None Reported Past Surgical History: Appendectomy, Heart Catheterization, Joint Replacement Additional Past Surgical History / Comment(s): EGDs, multiple large volume paracentesis, back injections, R thumb reattachment, circumcism, right heart catheterization Past Anesthesia/Blood Transfusion Reactions: No Reported Reaction Additional Past Anesthesia/Blood Transfusion Reaction / Comm: Pt has received blood product without reaction. Past Psychological History: Depression Additional Psychological History / Comment(s): Pt is on disability. 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 He uses a cane to ambulate at times. He drives. Smoking Status: Light tobacco smoker Past Alcohol Use History: None Reported Additional Past Alcohol Use History / Comment(s): patient states he is a rare smoker. He might smoke 1 cigarette every 2 weeks. Past Drug Use History: Marijuana - Past Family History Father Family Medical History: Unable to Obtain Additional Family Medical History / Comment(s): Pt does not know his father's medical hx. Mother Family Medical History: No Reported History Additional Family Medical History / Comment(s): Mother is healthy. Brother(s) Additional Family Medical History / Comment(s): Patient has 3 brothers and one suffers from alcohol abuse. 2 brothers have no major medical problems. Patient does not have any sisters. Patient is one daughter 12 years old with no major medical problems. Medications and Allergies Home Medications Medication Instructions Recorded Confirmed Type Pantoprazole Sodium [Protonix] 20 mg PO BID 10/12/19 09/20/20 History Insulin Glargine [Lantus] 24 units SQ DAILY 06/11/20 09/20/20 History Sildenafil [Revatio] 20 mg PO TID 06/11/20 09/20/20 History Levothyroxine Sodium [Synthroid] 50 mcg PO DAILY 08/11/20 09/20/20 History Insulin Aspart [NovoLOG Flexpen] See Protocol SQ AC-TID PRN 09/06/20 09/20/20 History Furosemide [Lasix] 40 mg PO Q48H 09/17/20 09/20/20 History Spironolactone 50 mg PO Q48H 09/17/20 09/20/20 History Allergies Allergy/AdvReac Type Severity Reaction Status Date / Time No Known Allergies Allergy Verified 09/20/20 08:09 Surgical - Exam Osteopathic Statement: *. No significant issues noted on an osteopathic structural exam other than those noted in the History and Physical/Consult. Vital Signs Temp Pulse Resp BP Pulse Ox 99.3 F 114 H 18 108/78 98 09/20/20 00:13 09/20/20 00:13 09/20/20 00:13 09/20/20 00:13 09/20/20 00:13 - General Decreased muscle mass per age chronically ill - Neck trachea midline - Respiratory clear to auscultation (Slightly diminished bilaterally) - Abdomen Abdomen: tender (Mild tenderness across the upper abdomen. No pain with percussion. Mild pain with deep palpation. No peritoneal signs. Possible caput medusa starting at the umbilicus), distended Results - Labs 09/24/20 04:44 09/24/20 04:44 Abnormal Lab Results - Last 24 Hours (Table) 09/23/20 09/24/20 09/24/20 Range/Units 20:01 04:44 04:44 RBC 2.99 L (4.30-5.90) m/uL Hgb 8.3 L (13.0-17.5) gm/dL Hct 25.2 L (39.0-53.0) % RDW 18.7 H (11.5-15.5) % Plt Count 20 L (150-450) k/uL Lymphocytes # 0.2 L (1.0-4.8) k/uL PT (9.0-12.0) sec INR (<1.2) Sodium 128 L (137-145) mmol/L Carbon Dioxide 15 L (22-30) mmol/L BUN 54 H (9-20) mg/dL Creatinine 1.43 H (0.66-1.25) mg/dL Glucose 104 H (74-99) mg/dL POC Glucose (mg/dL) 106 H (75-99) mg/dL Calcium 8.0 L (8.4-10.2) mg/dL Total Bilirubin 6.5 H (0.2-1.3) mg/dL Total Protein 4.9 L (6.3-8.2) g/dL Albumin 2.9 L (3.5-5.0) g/dL 09/24/20 09/24/20 09/24/20 Range/Units 07:08 10:34 12:17 RBC (4.30-5.90) m/uL Hgb (13.0-17.5) gm/dL Hct (39.0-53.0) % RDW (11.5-15.5) % Plt Count (150-450) k/uL Lymphocytes # (1.0-4.8) k/uL PT 19.0 H (9.0-12.0) sec INR 1.9 H (<1.2) Sodium (137-145) mmol/L Carbon Dioxide (22-30) mmol/L BUN (9-20) mg/dL Creatinine (0.66-1.25) mg/dL Glucose (74-99) mg/dL POC Glucose (mg/dL) 125 H 205 H (75-99) mg/dL Calcium (8.4-10.2) mg/dL Total Bilirubin (0.2-1.3) mg/dL Total Protein (6.3-8.2) g/dL Albumin (3.5-5.0) g/dL Diabetes panel 09/24/20 Range/Units 04:44 Sodium 128 L (137-145) mmol/L Potassium 3.8 (3.5-5.1) mmol/L Chloride 101 (98-107) mmol/L Carbon Dioxide 15 L (22-30) mmol/L BUN 54 H (9-20) mg/dL Creatinine 1.43 H (0.66-1.25) mg/dL Glucose 104 H (74-99) mg/dL Calcium 8.0 L (8.4-10.2) mg/dL AST 27 (17-59) U/L ALT 12 (4-49) U/L Alkaline Phosphatase 60 (38-126) U/L Total Protein 4.9 L (6.3-8.2) g/dL Albumin 2.9 L (3.5-5.0) g/dL Calcium panel 09/24/20 Range/Units 04:44 Calcium 8.0 L (8.4-10.2) mg/dL Albumin 2.9 L (3.5-5.0) g/dL Pituitary panel 09/24/20 Range/Units 04:44 Sodium 128 L (137-145) mmol/L Potassium 3.8 (3.5-5.1) mmol/L Chloride 101 (98-107) mmol/L Carbon Dioxide 15 L (22-30) mmol/L BUN 54 H (9-20) mg/dL Creatinine 1.43 H (0.66-1.25) mg/dL Glucose 104 H (74-99) mg/dL Calcium 8.0 L (8.4-10.2) mg/dL Adrenal panel 09/24/20 Range/Units 04:44 Sodium 128 L (137-145) mmol/L Potassium 3.8 (3.5-5.1) mmol/L Chloride 101 (98-107) mmol/L Carbon Dioxide 15 L (22-30) mmol/L BUN 54 H (9-20) mg/dL Creatinine 1.43 H (0.66-1.25) mg/dL Glucose 104 H (74-99) mg/dL Calcium 8.0 L (8.4-10.2) mg/dL Total Bilirubin 6.5 H (0.2-1.3) mg/dL AST 27 (17-59) U/L ALT 12 (4-49) U/L Alkaline Phosphatase 60 (38-126) U/L Total Protein 4.9 L (6.3-8.2) g/dL Albumin 2.9 L (3.5-5.0) g/dL - Imaging CT scan - abdomen: report reviewed, image reviewed Assessment and Plan (1) Acute on chronic pancreatitis Current Visit: Yes Status: Acute Code(s): K85.90 - ACUTE PANCREATITIS WITHOUT NECROSIS OR INFECTION, UNSP; K86.1 - OTHER CHRONIC PANCREATITIS SNOMED Code(s): 819328860 (2) Ascites Current Visit: Yes Status: Acute Code(s): R18.8 - OTHER ASCITES SNOMED Code(s): 992739768 (3) Intractable abdominal pain Current Visit: Yes Status: Acute Code(s): R10.9 - UNSPECIFIED ABDOMINAL PAIN SNOMED Code(s): 19347817 (4) Alcoholic cirrhosis of liver Current Visit: No Status: Acute Code(s): K70.30 - ALCOHOLIC CIRRHOSIS OF LIVER WITHOUT ASCITES SNOMED Code(s): 924279732 (5) Ascites Current Visit: No Status: Acute Code(s): R18.8 - OTHER ASCITES SNOMED Code(s): 624153315 Plan: I think the patient's abdominal pain is more related to the significant ascites and possible spontaneous bacterial peritonitis. No real peritoneal signs in the right lower quadrant. CT scan was done without any contrast reaching the cecum so it would be suboptimal. I discussed the patient with primary service and GI. He is going for a paracentesis today. Culture and cell count will be done. I will follow with you. Further recommendations to follow. The nonsurgical.
[2020-09-24] MEDS: LEVOFLOXACIN 500MG-D5W PMX 500 MG in DEXTROSE/WATER 1 100ML.BAG IVPB SCH (15:56)
--- NOTE | 2020-09-24 16:55 | P.PN ---
Subjective Progress Note Date: 09/24/20 Principal diagnosis: Ascites, pancreatitis, abdominal pain patient is 44-year-old male with a history of alcoholic cirrhosis of the liver with portal hypertension, refractory ascites, requiring large-volume paracentesis on a frequent basis who was admitted to the hospital for severe abdominal pain. as noted to have mild acute pancreatitis which has been improving. However he still has had persistent abdominal pain. He was started on broad-spectrum antibiotics for possibility of spontaneous bacterial peritonitis and presently on ceftriaxone and Flagyl. Still having abdominal pain however states it is improving. Still requesting pain medications every 2- 3 hours. He denies any nausea or vomiting.he underwent a CT of the abdomen and pelvis yesterday showing groundglass opacities in the bilateral lung concerning for multifocal pneumonia. Cirrhotic appearing liver. Dilated main pancreatic duct with evidence of chronic pancreatitis. Common bile duct stent with air in biliary tree. Questionable pneumatosis in the cecum/proximal descending colon. No amador free abdominal air. Large amount of ascites. Ventral midline abdominal hernia with herniation of fat and ascites fluid. Objective - Vital Signs Vital signs: Vital Signs Temp 97.6 F 09/24/20 05:00 Pulse 110 H 09/24/20 07:25 Resp 18 09/24/20 05:00 BP 87/64 09/24/20 06:59 Pulse Ox 92 L 09/24/20 05:00 Intake & Output 09/23/20 09/24/20 09/24/20 18:59 06:59 18:59 Intake Total 2760 Output Total 300 Balance 2760 -300 Intake: Intake, IV Titration 600 Amount Albumin Human 25% 50 ml 100 In Empty Bag 1 bag @ 50 mls/hr IVPB Q8H AWA Rx#: [id number] Albumin Human 25% 50 ml 100 In Empty Bag 1 bag @ 50 mls/hr IVPB Q8H AWA Rx#: [id number] Levofloxacin 500Mg-D5w 100 Pmx 500 mg In Dextrose/ Water 1 100ml.bag @ 100 mls/hr IVPB Q24H AWA Rx#: [id number] Piperacillin-Tazobactam 3 200 .375 gm In Sodium Chloride 0.9% 100 ml @ 25 mls/hr IVPB Q8HR AWA Rx# :[id number] metroNIDAZOLE-NS PMX 500 100 mg In Saline 1 100ml.bag @ 100 mls/hr IVPB Q6HR AWA Rx#:[id number] Oral 2160 Output: Urine 300 Other: Voiding Method Toilet Toilet Urinal Urinal # Voids 4 - Exam General appearance: The patient is alert, oriented, appears in no acute dist ress. HET: Head is normocephalic and atraumatic. Conjunctiva pink. Sclera anicteric. Neck: Supple without lymphadenopathy. Abdomen: Soft, diffuse tenderness, distended with umbilical hernia, positive bowel sounds. No guarding or rigidity. Extremities: Normal skin color and turgor. No pedal edema Skin: No rashes, no jaundice Neurological: No focal deficits. Alert and oriented 3. - Labs CBC & Chem 7: 09/24/20 04:44 09/24/20 04:44 Labs: Abnormal Lab Results - Last 24 Hours (Table) 09/23/20 09/23/20 09/24/20 Range/Units 12:04 20:01 04:44 RBC 2.99 L (4.30-5.90) m/uL Hgb 8.3 L (13.0-17.5) gm/dL Hct 25.2 L (39.0-53.0) % RDW 18.7 H (11.5-15.5) % Plt Count 20 L (150-450) k/uL Lymphocytes # 0.2 L (1.0-4.8) k/uL PT (9.0-12.0) sec INR (<1.2) Sodium (137-145) mmol/L Carbon Dioxide (22-30) mmol/L BUN (9-20) mg/dL Creatinine (0.66-1.25) mg/dL Glucose (74-99) mg/dL POC Glucose (mg/dL) 118 H 106 H (75-99) mg/dL Calcium (8.4-10.2) mg/dL Total Bilirubin (0.2-1.3) mg/dL Total Protein (6.3-8.2) g/dL Albumin (3.5-5.0) g/dL 09/24/20 09/24/20 09/24/20 Range/Units 04:44 07:08 10:34 RBC (4.30-5.90) m/uL Hgb (13.0-17.5) gm/dL Hct (39.0-53.0) % RDW (11.5-15.5) % Plt Count (150-450) k/uL Lymphocytes # (1.0-4.8) k/uL PT 19.0 H (9.0-12.0) sec INR 1.9 H (<1.2) Sodium 128 L (137-145) mmol/L Carbon Dioxide 15 L (22-30) mmol/L BUN 54 H (9-20) mg/dL Creatinine 1.43 H (0.66-1.25) mg/dL Glucose 104 H (74-99) mg/dL POC Glucose (mg/dL) 125 H (75-99) mg/dL Calcium 8.0 L (8.4-10.2) mg/dL Total Bilirubin 6.5 H (0.2-1.3) mg/dL Total Protein 4.9 L (6.3-8.2) g/dL Albumin 2.9 L (3.5-5.0) g/dL Assessment and Plan (1) Acute on chronic pancreatitis Narrative/Plan: 44-year-old male with a past medical history of alcoholic cirrhosis of the liver, liver failure related to the above and into the emergency department with abdominal pain and abdominal distention. He was found to have acute on chronic pancreatitis. The patient follows with [facility], he is status post biliary stents. He is awaiting to possibly be on the liver transplant list. He has had multiple episodes of pancreatitis in the past related to alcohol abuse. He has not had any alcohol in several months. On admission he had a lipase of 1415, amylase 296, total bilirubin 2.1, alkaline phosphatase 78, AST 27, ALT 16. Patient states he has been having increased abdominal pain over the last couple days, also noted to have increased abdominal distention. Patient is to follow-up with [facility], acute on chronic alcoholic pancreatitis related to previous history of alcohol abuse. Continue IV fluids, pain medication, clear liquid diet. Current Visit: Yes Status: Acute Code(s): K85.90 - ACUTE PANCREATITIS WITHOUT NECROSIS OR INFECTION, UNSP; K86.1 - OTHER CHRONIC PANCREATITIS SNOMED Code(s): 044848502 (2) Abdominal pain Narrative/Plan: patient started on empiric antibiotics with ceftriaxone and Flagyl for possible spontaneous bacterial peritonitis Current Visit: No Status: Acute Code(s): R10.9 - UNSPECIFIED ABDOMINAL PAIN SNOMED Code(s): 35690085 (3) Alcoholic cirrhosis of liver Current Visit: No Status: Acute Code(s): K70.30 - ALCOHOLIC CIRRHOSIS OF LIVER WITHOUT ASCITES SNOMED Code(s): 375203487 (4) Ascites Narrative/Plan: Patient is scheduled for weekly paracentesis on Mondays, this past Thursday he was unable to have his paracentesis due to low blood pressure. Today he underwent a Alvarado teases with 8.2 L of fluid removed. patient had repeat paracentesis with 6 2 L removedL of fluid removed Current Visit: No Status: Acute Code(s): R18.8 - OTHER ASCITES SNOMED Code(s): 011828954 (5) Chronic liver failure Current Visit: No Status: Acute Code(s): K72.10 - CHRONIC HEPATIC FAILURE WITHOUT COMA SNOMED Code(s): 198227355 Plan: 1. Continue symptomatic and supportive care 2. Paracentesis completed 3. Albumin ordered 4. Continue diuretics as ordered for now 5. Repeat daily labs 6. Patient may have clear liquid diet 7. Continue IV fluids 8. Pain medications as needed 9. Follow-up with [facility] as scheduled 10. call services on consult, appreciate their recommendations. Thank you for this consultation, we will continue to follow Dr. Lucia Leiva I agree with the dictator's note, documented as a scribe by Janessa Love.
[2020-09-24 17:01] LABS: Glucose,Whole Blood 271 mg/dL (75-99)
[2020-09-24 19:44] LABS: Appearance,BF Bloody; Nucleated Cells, Body Fluid 4600 /uL
[2020-09-24 19:45] LABS: RBC, Body Fluid 16200 /uL
[2020-09-24 19:47] LABS: Mononuclear WBC,Body Fluid 1 %; Polynuclear WBC,Body Fluid 99 %; Total Cells Counted,Body Fluid 100
[2020-09-24 20:50] LABS: Glucose,Whole Blood 200 mg/dL (75-99)
[2020-09-25] MEDS: DEXTROSE 5% IN WATER 1,000 ML with SODIUM BICARB (1 MEQ/ML) 150 ML IV SCH ×4 (00:30→21:51)
[2020-09-25] MEDS: HYDROmorphone 1 MG/ML 1 ML SYRINGE IVP PRN ×9 (01:45→22:05)
[2020-09-25] MEDS: LEVOTHYROXINE 50 MCG TAB PO SCH (05:57)
[2020-09-25 06:51] LABS: Anisocytosis Slight; HCT 24.9 % (39.0-53.0); HGB 8.1 gm/dL (13.0-17.5); MCHC 32.4 g/dL (31.0-37.0); MCV 83.3 fL (80.0-100.0); Mean Platelet Volume 7.5; Poikilocytosis Slight; RBC 2.99 m/uL (4.30-5.90); RDW 18.4 % (11.5-15.5); WBC 6.8 k/uL (3.8-10.6)
[2020-09-25 07:01] LABS: Platelet Count 20 k/uL (150-450)
[2020-09-25] MEDS: IPRATROPIUM-ALBUTEROL 3 ML NEB INHALATION SCH ×4 (07:07→19:15)
[2020-09-25 07:11] LABS: Glucose,Whole Blood 341 mg/dL (75-99)
[2020-09-25] MEDS: INSULIN ASPART (NovoLOG) 100 UNIT/ML VIAL SQ SCH ×7 (08:43→20:50)
[2020-09-25] MEDS: SPIRONOLACTONE 25 MG TAB PO SCH (08:43)
[2020-09-25] MEDS: SILDENAFIL 20 MG TAB PO SCH ×3 (08:43→22:06)
[2020-09-25] MEDS: PANTOPRAZOLE 40 MG/10 ML VIAL IV SCH (08:43)
[2020-09-25] MEDS: INSULIN DETEMIR (LEVEMIR) 100 UNIT/ML SYR SQ SCH (08:43)
[2020-09-25] MEDS: LIPASE 5,000/PROTEASE 17,000/AMYLASE 24,000 PO SCH ×3 (08:44→16:53)
[2020-09-25] MEDS: MIDODRINE 5 MG TAB PO SCH ×3 (08:44→16:53)
[2020-09-25] MEDS: FUROSEMIDE 40 MG TAB PO SCH (08:44)
[2020-09-25] MEDS: PIPERACILLIN-TAZOBACTAM 3.375 GM in SODIUM CHLORIDE 0.9% 100 ML IVPB SCH ×2 (08:45→16:52)
[2020-09-25] MEDS ORDERED: MAG HYDROX/AL HYDROX/SIMETH 30 ML CUP PO PRN (09:26)
--- NOTE | 2020-09-25 09:45 | US ---
Ultrasound-guided paracentesis. DATE OF EXAM: 09/24/2020 CLINICAL HISTORY: Ascites The procedure was discussed with the patient. The risks, complications, benefits, and alternatives we re discussed and any questions were answered. Informed consent was obtained. The patient was placed s upine on the ultrasound table and prepped and draped in the usual sterile fashion. All elements of maximal barrier technique were utilized. Under ultrasound guidance, access into the right lower quadrant was obtained, via the paracentesis catheter system and direct ultrasound guidanc e. Approximately 6.25 liters of straw-colored fluid was removed. The patient was stable throughout the p rocedure and remained stable upon discharge from Department of Radiology. IMPRESSION: Successful paracentesis under ultrasound guidance.
--- NOTE | 2020-09-25 11:00 | P.PN ---
Subjective Progress Note Date: 09/25/20 HISTORY OF PRESENT ILLNESS This is a 44-year-old male patient of Dr. Sarmad Linn. He has history of alcohol liver cirrhosis with portal hypertension and previous GI blee ding, hypertension and gastritis, pancreatitis, spinal stenosis and peripheral neuropathy, hypothyroidism. Patient also has chronic back pain and was under the care of Dr. Lagunas but violated pain contract and no longer seen by pain management. He is also known to Dr. Ghazal Leiva from previous EGDs in the past finding gastritis consistent with portal gastropathy but no gastric or esophageal varices or active bleeding. He has had multipe admissions for acute GI bleed. He had admission for right leg abscess requiring I&D in December 2017. Patient has had multiple admissions for acute pancreatitis with worsening ascites. Most recently, hospitalizations have been for ascites and therapeutic paracentesis. Patient has been following with [facility] for liver failure and evaluation for liver transplant. Patient complains of abdominal pain and abdominal distention. He needs to have paracentesis done early and he has an appointment with [facility] but could not wait for his appointment. Patient came into [facility] emergency center for evaluation. He was afebrile, heart rate 114, the pressure 108/78, pulse ox 98% on room air. WBC 8.2, hemoglobin 11.2, platelet count 58. Sodium 129, potassium 4.1, chloride 103, CO2 14, BUN 38 and creatinine 1.42. Blood sugar 190. Phosphorus 3.1. Magnesium 1.5 total bilirubin 2.1, AST 67, ALT 16, complaint phosphatase 78. CK less than 20. Amylase 296. Lipase 1415. Serum alcohol less than 10. Ammonia level XXVII. Patient has been admitted to the [facility] floor, consult with GI as well as interventional radiology for therapeutic Alvarado T-System. Patient is currently nothing by mouth. 09/21: Patient underwent paracentesis yesterday with removal of 8.2 L of fluid. He continues to complain of abdominal pain and Dilaudid will be increased to 1- 1/2 mg every 3 hours. Patient has been afebrile, heart rate 109, blood pressure 92/59 to 77/56. Pulse ox 93% on 2 L. Patient is currently on clear liquid diet which will be continued. GI is on consult and following the patient. Repeat blood work reveals a lipase of 520. Blood sugars have been running between 260 and 431. It appears the patient did not receive his Levemir yesterday until 11:00 today and he also was given IV Solu-Medrol in the emergency center. Levemir has been resumed and we are adding in NovoLog 5 units with meals and NovoLog scale is already in place. IV fluids discontinued. Repeat blood work ordered for tomorrow and anticipate discharge home tomorrow. 09/22: Patient evaluated, lying in bed still has complaints of continued abdominal pain. Patient was noted to be hypotensive blood pressure was 80/55. Patient apparently was receiving midodrine at home, will restart midodrine 10 mg 3 times a day. Currently Dilaudid on hold due to hypotension, once blood pressure is above 110 systolic will restart Dilaudid. Patient also noted to have an elevated white count at 17.8, hemoglobin 9.4, creatinine 1.6, BUN 56, lipase 140, obtain 4.3. Patient will be started on protein supplements as well as albumin every 8 hours for 6 doses. Flagyl ordered for concerns for peritonitis. Patient was also hypoglycemic insulin has been adjusted will decrease NovoLog to 2 units 3 times a day and decrease Levemir to 20 units daily. Discussion with patient today regarding overall poor prognosis, patient would like to consult with palliative care, consult placed 09/23: Patient evaluated this morning, has complaints of worsening abdominal pain. Antibiotics will be changed to Zosyn along with Flagyl. Will also obtain a CT of the abdomen with oral contrast. Patient continues to be hypotensive, blood pressure 80/55, he continues with midodrine 10 mg 3 times a day. He was also started on albumin yesterday. Insulin was decreased yesterday to due to hypoglycemia, blood sugars much better running between 70 and 150. Patient is asking to be transferred to [facility] where he sees gastroenterology. We'll try to arrange for accommodations to be transferred to [facility] 09/24: Patient complains of continued pain and medications have been adjusted to Dilaudid 1-1/2 mg every 2 hours as needed. His blood pressure has been on the low side and Revatio decreased to 10 mg 3 times daily. Patient is or would be normally scheduled for paracentesis as an outpatient which we'll plan to have done today. Platelets ordered prior to and most likely patient will need albumin after. Regarding transferred to [facility], patient has not been accepted there as he is receiving care here that would be provided at the other facility. Patient has been afebrile, heart rate 98, blood pressure 97/64, pulse ox 91%. Blood sugars are running 104-205. INR today is 1.9. Hemoglobin 8.3. Sodium 128, BUN 54 creatinine 1.43. Platelets are at 20. CAT scan of the abdomen and pelvis revealed groundglass opacities in the bilateral lungs concerning for multifocal pneumonia. Cirrhotic-appearing liver. Dilated main pancreatic duct with evidence of chronic pancreatitis., Bile duct stent with air in the biliary tree. Questionable pneumatosis in the cecum/proximal descending colon. No amador free abdominal air. Large amount of ascites. Ventral midline abdominal hernia with herniation of fat and ascites fluid. C onsult with Dr. Olvera added for pneumatosis intestinalis. Radiology consult for paracentesis. C. difficile toxin has been ordered. Patient has continued to have diarrhea. A bicarb drip has been ordered. 09/25: Yesterday, patient underwent paracentesis with interventional radiology with removal of 6.25 L of straw-colored fluid. Patient has been seen by Dr. Olvera and feels patient has bacterial peritonitis. He is currently on Zosyn and Levaquin. Consult with Dr. Bob will be added. His diet will be increased to low sodium diet and ensure to be started today. Blood sugars are running high secondary to dextrose in bicarb drip and scheduled NovoLog will be increased to 6 units twice daily. Patient is status post IV albumin. Dr. Garcia discussed with the patient in detail that for him to get adequate pain control with his current diagnoses and problems, he would need to be palliative or hospice care but patient is not interested in this. He repeatedly states that he wants more pain medication and pain control. Patient's blood pressure is improved today at 97/60. He's been afebrile, heart rate 101, pulse ox 94% on 4 L. Repeat blood work reveals WBC 6.8, hemoglobin 8.1, platelet count 20. REVIEW OF SYSTEMS reports Constitutional: Denies chills, Denies fatigue, Denies fever, Denies lethargy, Denies malaise, reports poor appetite, Denies weakness Eyes: denies blurred vision, denies pain Ears, nose, mouth and throat: Denies headache, Denies sore throat Cardiovascular: Denies chest pain, Denies decreased exercise tolerance, Denies dyspnea on exertion, Denies lightheadedness, Denies shortness of breath, Denies syncope Respiratory: Denies cough, Denies cough with sputum, Denies dyspnea, Denies hemoptysis, Denies home oxygen, Denies respiratory infections, Denies wheezing Gastrointestinal: Reports abdominal pain continues, reports abdominal distention Denies BRBPR, reports diarrhea, Denies melena, reports nausea, reports vomiting, reports decreased appetite Genitourinary: Denies dysuria, Denies urinary hesitancy, Denies urinary retention, reports dark urine Musculoskeletal: Denies frequent falls, Denies gait dysfunction, Denies muscle weakness, Denies myalgias Integumentary: Denies pruritus, Denies rash, Denies wounds Neurological: Denies numbness, Denies weakness Psychiatric: Denies anxiety, Denies depression Endocrine: Denies fatigue, Denies weight change, hyperglycemia PHYSICAL EXAMINATION Gen: This is a thin 44-year-old male. Patient is resting in bed and appears to be comfortable and in no acute distress. HEENT: Head is atraumatic, normocephalic. Pupils equal, round. Sclerae is anicteric. NECK: Supple. No JVD. No lymphadenopathy. No thyromegaly. LUNGS: Clear to auscultation. No wheezes or rhonchi. No intercostal retractions. HEART: Regular rate and rhythm. No murmur. ABDOMEN: Abdominal distention and ascites, improved. Bowel sounds are present. No masses. Generalized abdominal tenderness. Large umbilical hernia with varicose veins. EXTREMITIES: No pedal edema. No calf tenderness. NEUROLOGICAL: Patient is awake, alert and oriented x3. Cranial nerves 2 through 12 are grossly intact. ASSESSMENT AND PLAN 1. Acute abdominal pain secondary to pancreatitis and worsening ascites status post paracentesis 09/20 with removal of 8.2 L and on 09/25 with removal of 6.25 L. Consult with interventional radiology and GI appreciated. Continue Dilaudid 1- 1/2 mg IV push every 2 hours as needed. Parameters in place for pain medication due to hypotension. 2. Acute on chronic pancreatitis. Discontinue IV fluids, continue clear liquid diet only, continue Dilaudid, repeat lab work in the morning, consult with GI appreciated. 3. History of alcoholic liver disease with portal hypertension and previous episodes of acute GI bleed with acute blood loss anemia resulting in multiple hospitalizations for GI bleeding from esophageal varices status post banding. Continue Protonix changed to IV daily. Continue Lasix, Aldactone. 4. Chronic ascites and scheduled paracentesis. Continue Aldactone and Lasix. 5. 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 6. Spinal stenosis with peripheral neuropathy. 7. History of tobacco use and dependence. 8. Hypothyroidism. Continue levothyroxine 50 g daily. 9. Recurrent depression. 10. Peripheral neuropathy secondary to alcoholism and spinal stenosis. 11. 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 Continue Lantus 24 units daily, additional dose of 10 units of NovoLog to be given with lunch, NovoLog 5 units with meals added and continue NovoLog scale. 12. GI prophylaxis. Protonix. 13. Severe protein calorie malnutrition. 13. DVT prophylaxis. No heparin due to thrombocytopenia. SCDs and ANDREEA hose and early ambulation. 15. Peritonitis. Continue IV Flagyl and Zosyn 16. Chronic hypotension. Revatio decreased to 10 mg 3 times daily. 17. Possible bacterial peritonitis. Consult with Dr. Bob. Continue Zosyn and Levaquin. DISCHARGE PLAN Home Impression and plan of care have been directed as dictated by the signing physician. Giovana Kathleen nurse practitioner acting as scribe for signing physician. Objective - Vital Signs Vital signs: Vital Signs Temp 98.5 F 09/25/20 05:00 Pulse 102 H 09/25/20 07:17 Resp 18 09/25/20 05:00 BP 97/60 09/25/20 05:00 Pulse Ox 94 L 09/25/20 05:00 Intake & Output 09/24/20 09/25/20 09/25/20 18:59 06:59 18:59 Intake Total 2086 1749 Output Total 300 Balance 2086 1450 Intake: Intake, IV Titration 1749 1750 Amount Dextrose 5% in Water 1 165 1650 000 ml @ 150 mls/hr IV . Q7H40M AWA with Sodium Bicarb (1 Meq/ml) 150 ml Rx#:[id number] Levofloxacin 500Mg-D5w 100 Pmx 500 mg In Dextrose/ Water 1 100ml.bag @ 100 mls/hr IVPB Q24H [facility] Rx#: [id number] Piperacillin-Tazobactam 3 100 .375 gm In Sodium Chloride 0.9% 100 ml @ 25 mls/hr IVPB Q8HR [facility] Rx# :[id number] Blood Product 337 Platelet Pheresis Pas 337 Psoralen Unit [id number] Output: Urine 300 Other: Voiding Method Toilet Urinal # Voids 5 - Labs CBC & Chem 7: 09/25/20 05:51 09/24/20 04:44 Labs: Abnormal Lab Results - Last 24 Hours (Table) 09/24/20 09/24/20 09/24/20 Range/Units 10:34 12:17 17:00 RBC (4.30-5.90) m/uL Hgb (13.0-17.5) gm/dL Hct (39.0-53.0) % RDW (11.5-15.5) % Plt Count (150-450) k/uL PT 19.0 H (9.0-12.0) sec INR 1.9 H (<1.2) POC Glucose (mg/dL) 205 H 271 H (75-99) mg/dL 09/24/20 09/25/20 09/25/20 Range/Units 20:49 05:51 07:09 RBC 2.99 L (4.30-5.90) m/uL Hgb 8.1 L (13.0-17.5) gm/dL Hct 24.9 L (39.0-53.0) % RDW 18.4 H (11.5-15.5) % Plt Count 20 L (150-450) k/uL PT (9.0-12.0) sec INR (<1.2) POC Glucose (mg/dL) 200 H 341 H (75-99) mg/dL Microbiology - Last 24 Hours (Table) 09/24/20 14:07 Gram Stain - Preliminary Paracentesis Fluid Body Fluid Culture - Preliminary 09/24/20 14:07 Anaerobic Culture - Preliminary Paracentesis Fluid
[2020-09-25 11:17] LABS: Glucose,Whole Blood 224 mg/dL (75-99)
[2020-09-25 11:50] LABS: African American GFR (CKD) 70.3 (60.0-200.0); Albumin 2.6 g/dL (3.80-4.90); Anion Gap 9.8 mmol/L (4.00-12.00); Calcium 7.3 mg/dL (8.7-10.3); Carbon Dioxide 24.2 mmol/L (21.6-31.8); Non-African American GFR(CKD) 60.7 (60.0-200.0); Potassium 3.3 mmol/L (3.5-5.5); Total Protein 3.8 g/dL (6.2-8.2)
[2020-09-25 11:51] LABS: Albumin/Globulin Ratio 2.17 (1.60-3.17); Globulin 1.2 g/dL (1.6-3.3); Total Bilirubin 6.7 mg/dL (0.3-1.2)
[2020-09-25 13:08] VITALS: BMI 23.3
--- NOTE | 2020-09-25 15:54 | P.PN ---
Subjective Progress Note Date: 09/25/20 The patient had over 6 L of fluid aspirated yesterday. He feels less tightness. Was able to easily little bit today. Objective - Vital Signs Vital signs: Vital Signs Temp 97.9 F 09/25/20 11:32 Pulse 109 H 09/25/20 13:19 Resp 18 09/25/20 11:32 BP 95/58 09/25/20 13:19 Pulse Ox 94 L 09/25/20 11:32 Intake & Output 09/24/20 09/25/20 09/25/20 18:59 06:59 18:59 Intake Total 2086 175 Output Total 300 Balance 2086 145 Weight 71.5 kg Intake: Intake, IV Titration 175 1750 Amount Dextrose 5% in Water 1, 0 1650 000 ml @ 150 mls/hr IV . Q7H40M AWA with Sodium Bicarb (1 Meq/ml) 150 ml Rx#:[id number] Levofloxacin 500Mg-D5w 100 Pmx 500 mg In Dextrose/ Water 1 100ml.bag @ 100 mls/hr IVPB Q24H [facility] Rx#: [id number] Piperacillin-Tazobactam 3 100 .375 gm In Sodium Chloride 0.9% 100 ml @ 25 mls/hr IVPB Q8HR [facility] Rx# :[id number] Blood Product 337 Platelet Pheresis Pas 337 Psoralen Unit [id number] Output: Urine 300 Other: Voiding Method Toilet Toilet Urinal Urinal # Voids 5 - Constitutional Constitutional Comment(s): Chronically ill-appearing - Gastrointestinal Gastrointestinal Comment(s): Caput [place] present General gastrointestinal: Present: decreased bowel sounds, distended (Softly distended, not as tense as yesterday. ), tenderness (Minimal nonspecific tenderness, no peritoneal signs) - Labs CBC & Chem 7: 09/25/20 05:51 09/25/20 05:51 Labs: Abnormal Lab Results - Last 24 Hours (Table) 09/24/20 09/24/20 09/25/20 Range/Units 17:00 20:49 05:51 RBC 2.99 L (4.30-5.90) m/uL Hgb 8.1 L (13.0-17.5) gm/dL Hct 24.9 L (39.0-53.0) % RDW 18.4 H (11.5-15.5) % Plt Count 20 L (150-450) k/uL Sodium (135-145) mmol/L Potassium (3.5-5.5) mmol/L Chloride (96-109) mmol/L BUN (9.0-27.0) mg/dL BUN/Creatinine Ratio (12.00-20.00) Ratio Glucose (70-110) mg/dL POC Glucose (mg/dL) 271 H 200 H (75-99) mg/dL Calcium (8.7-10.3) mg/dL Total Bilirubin (0.3-1.2) mg/dL ALT (10-49) U/L Total Protein (6.2-8.2) g/dL Albumin (3.80-4.90) g/dL Globulin (1.6-3.3) g/dL 09/25/20 09/25/20 09/25/20 Range/Units 05:51 07:09 11:16 RBC (4.30-5.90) m/uL Hgb (13.0-17.5) gm/dL Hct (39.0-53.0) % RDW (11.5-15.5) % Plt Count (150-450) k/uL Sodium 129 L (135-145) mmol/L Potassium 3.3 L (3.5-5.5) mmol/L Chloride 95 L (96-109) mmol/L BUN 49.0 H (9.0-27.0) mg/dL BUN/Creatinine Ratio 35.00 H (12.00-20.00) Ratio Glucose 328 H (70-110) mg/dL POC Glucose (mg/dL) 341 H 224 H (75-99) mg/dL Calcium 7.3 L (8.7-10.3) mg/dL Total Bilirubin 6.7 H (0.3-1.2) mg/dL ALT 9 L (10-49) U/L Total Protein 3.8 L (6.2-8.2) g/dL Albumin 2.60 L (3.80-4.90) g/dL Globulin 1.2 L (1.6-3.3) g/dL Microbiology - Last 24 Hours (Table) 09/24/20 14:07 Gram Stain - Preliminary Paracentesis Fluid Body Fluid Culture - Preliminary 09/24/20 14:07 Anaerobic Culture - Preliminary Paracentesis Fluid Assessment and Plan (1) Acute on chronic pancreatitis Current Visit: Yes Status: Acute Code(s): K85.90 - ACUTE PANCREATITIS WITHOUT NECROSIS OR INFECTION, UNSP; K86.1 - OTHER CHRONIC PANCREATITIS SNOMED Code(s): 414720767 (2) Ascites Current Visit: Yes Status: Acute Code(s): R18.8 - OTHER ASCITES SNOMED Code(s): 814972957 (3) Intractable abdominal pain Current Visit: Yes Status: Acute Code(s): R10.9 - UNSPECIFIED ABDOMINAL PAIN SNOMED Code(s): 42678110 (4) Alcoholic cirrhosis of liver Current Visit: No Status: Acute Code(s): K70.30 - ALCOHOLIC CIRRHOSIS OF LIVER WITHOUT ASCITES SNOMED Code(s): 323210082 (5) Ascites Current Visit: No Status: Acute Code(s): R18.8 - OTHER ASCITES SNOMED Code(s): 460427874 Plan: The patient has a nonsurgical abdomen. Serial physical exams do not show any evidence of inflammation of the cecum that would correlate with the findings on CT possible pneumatosis intestinalis. At this point I'll sign off. Notify me if anything changes with his condition and Like him reevaluated.
--- NOTE | 2020-09-25 16:41 | P.PN ---
Subjective Progress Note Date: 09/25/20 Principal diagnosis: Ascites, pancreatitis, abdominal pain patient is 44-year-old male with a history of alcoholic cirrhosis of the liver with portal hypertension, refractory ascites, requiring large-volume paracentesis on a frequent basis who was admitted to the hospital for severe abdominal pain. as noted to have mild acute pancreatitis which has been improving. However he still has had persistent abdominal pain. He was started on broad-spectrum antibiotics for possibility of spontaneous bacterial peritonitis and presently on ceftriaxone and Flagyl. Still having abdominal pain however states it is improving. Still requesting pain medications every 2- 3 hours. He denies any nausea or vomiting.he underwent a CT of the abdomen and pelvis yesterday showing groundglass opacities in the bilateral lung concerning for multifocal pneumonia. Cirrhotic appearing liver. Dilated main pancreatic duct with evidence of chronic pancreatitis. Common bile duct stent with air in biliary tree. Questionable pneumatosis in the cecum/proximal descending colon. No amador free abdominal air. Large amount of ascites. Ventral midline abdominal hernia with herniation of fat and ascites fluid. Patient was seen by general surgery Dr. Olvera. He's had normal bowel movements. Denies any nausea or vomiting. States he still has abdominal pain. He underwent paracentesis yesterday with fluid removal of 6.2 L. Plan is for possible discharge home with palliative care. Objective - Vital Signs Vital signs: Vital Signs Temp 98.5 F 09/25/20 05:00 Pulse 102 H 09/25/20 07:17 Resp 18 09/25/20 05:00 BP 97/60 09/25/20 05:00 Pulse Ox 94 L 09/25/20 05:00 Intake & Output 09/24/20 09/25/20 09/25/20 18:59 06:59 18:59 Intake Total 2086 1750 Output Total 300 Balance 7 1450 Intake: Intake, IV Titration 1750 1750 Amount Dextrose 5% in Water 1, 1650 1650 000 ml @ 150 mls/hr IV . Q7H40M AWA with Sodium Bicarb (1 Meq/ml) 150 ml Rx#:[id number] Levofloxacin 500Mg-D5w 100 Pmx 500 mg In Dextrose/ Water 1 100ml.bag @ 100 mls/hr IVPB Q24H [facility] Rx#: [id number] Piperacillin-Tazobactam 3 100 .375 gm In Sodium Chloride 0.9% 100 ml @ 25 mls/hr IVPB Q8HR [facility] Rx# :[id number] Blood Product 337 Platelet Pheresis Pas 337 Psoralen Unit [id number] Output: Urine 300 Other: Voiding Method Toilet Urinal # Voids 5 - Exam General appearance: The patient is alert, oriented, appears in no acute distress. HET: Head is normocephalic and atraumatic. Conjunctiva pink. Sclera anicteric. Neck: Supple without lymphadenopathy. Abdomen: Soft, diffuse tenderness, distended with umbilical hernia, positive bowel sounds. No guarding or rigidity. Extremities: Normal skin color and turgor. No pedal edema Skin: No rashes, no jaundice Neurological: No focal deficits. Alert and oriented 3. - Labs CBC & Chem 7: 09/25/20 05:51 09/25/20 05:51 Labs: Abnormal Lab Results - Last 24 Hours (Table) 09/24/20 09/24/20 09/24/20 Range/Units 10:34 12:17 17:00 RBC (4.30-5.90) m/uL Hgb (13.0-17.5) gm/dL Hct (39.0-53.0) % RDW (11.5-15.5) % Plt Count (150-450) k/uL PT 19.0 H (9.0-12.0) sec INR 1.9 H (<1.2) POC Glucose (mg/dL) 205 H 271 H (75-99) mg/dL 09/24/20 09/25/20 09/25/20 Range/Units 20:49 05:51 07:09 RBC 2.99 L (4.30-5.90) m/uL Hgb 8.1 L (13.0-17.5) gm/dL Hct 24.9 L (39.0-53.0) % RDW 18.4 H (11.5-15.5) % Plt Count 20 L (150-450) k/uL PT (9.0-12.0) sec INR (<1.2) POC Glucose (mg/dL) 200 H 341 H (75-99) mg/dL Microbiology - Last 24 Hours (Table) 09/24/20 14:07 Gram Stain - Preliminary Paracentesis Fluid Body Fluid Culture - Preliminary 09/24/20 14:07 Anaerobic Culture - Preliminary Paracentesis Fluid Assessment and Plan (1) Acute on chronic pancreatitis Narrative/Plan: 44-year-old male with a past medical history of alcoholic cirrhosis of the liver, liver failure related to the above and into the emergency department with abdominal pain and abdominal distention. He was found to have acute on chronic pancreatitis. The patient follows with [facility], he is status post biliary stents. He is awaiting to possibly be on the liver transplant list. He has had multiple episodes of pancreatitis in the past related to alcohol abuse. He has not had any alcohol in several months. On admission he had a lipase of 1415, amylase 296, total bilirubin 2.1, alkaline phosphatase 78, AST 27, ALT 16. Patient states he has been having increased abdominal pain over the last couple days, also noted to have increased abdominal distention. Patient is to follow-up with [facility], acute on chronic alcoholic pancreatitis related to previous history of alcohol abuse. Continue IV fluids, pain medication, clear liquid diet. Current Visit: Yes Status: Acute Code(s): K85.90 - ACUTE PANCREATITIS WITHOUT NECROSIS OR INFECTION, UNSP; K86.1 - OTHER CHRONIC PANCREATITIS SNOMED Code(s): 512592391 (2) Abdominal pain Narrative/Plan: patient started on empiric antibiotics with ceftriaxone and Flagyl for possible spontaneous bacterial peritonitis Current Visit: No Status: Acute Code(s): R10.9 - UNSPECIFIED ABDOMINAL PAIN SNOMED Code(s): 24049900 (3) Alcoholic cirrhosis of liver Current Visit: No Status: Acute Code(s): K70.30 - ALCOHOLIC CIRRHOSIS OF LIVER WITHOUT ASCITES SNOMED Code(s): 154624745 (4) Ascites Narrative/Plan: Patient is scheduled for weekly paracentesis on Mondays, this past Thursday he was unable to have his paracentesis due to low blood pressure. Today he underwent a Alvarado teases with 8.2 L of fluid removed. patient had repeat paracentesis with 6 2 L removedL of fluid removed Current Visit: No Status: Acute Code(s): R18.8 - OTHER ASCITES SNOMED Code(s): 513155701 (5) Chronic liver failure Current Visit: No Status: Acute Code(s): K72.10 - CHRONIC HEPATIC FAILURE WITHOUT COMA SNOMED Code(s): 814866731 Plan: 1. Continue symptomatic and supportive care 2. Paracentesis completed 3. Continue diuretics as ordered for now 4. Repeat daily labs 5. Advance to low sodium diet 6. Pain medications as needed 7. Follow-up with [facility] as scheduled 8. Patient will continue outpatient therapeutic paracentesis as scheduled Thank you for this consultation, patient is cleared for discharge from gastroenterology Dr. Lucia Leiva I agree with the dictator's note, documented as a scribe by Janessa Love.
[2020-09-25] MEDS: LEVOFLOXACIN 500MG-D5W PMX 500 MG in DEXTROSE/WATER 1 100ML.BAG IVPB SCH (16:52)
[2020-09-25 17:31] LABS: Glucose,Whole Blood 110 mg/dL (75-99)
[2020-09-25] MEDS: ONDANSETRON 4 MG/2 ML VIAL IVP PRN (20:02)
[2020-09-25 20:28] LABS: Glucose,Whole Blood 131 mg/dL (75-99)
[2020-09-26] MEDS: PIPERACILLIN-TAZOBACTAM 3.375 GM in SODIUM CHLORIDE 0.9% 100 ML IVPB SCH ×4 (06:05→23:34)
[2020-09-26] MEDS: LEVOTHYROXINE 50 MCG TAB PO SCH (06:21)
[2020-09-26] MEDS: IPRATROPIUM-ALBUTEROL 3 ML NEB INHALATION SCH ×4 (07:13→20:05)
[2020-09-26 07:18] LABS: Glucose,Whole Blood 271 mg/dL (75-99)
--- NOTE | 2020-09-26 07:21 | P.CONS ---
History of Present Illness - Reason for Consult Consult date: 09/25/20 Peritonitis Requesting physician: Anu Garcia - Chief Complaint Abdominal pain x few days - History of Present Illness Patient is a 44-year-old male with a past medical history significant for alcoholic cirrhosis of the liver with refractory ascites requiring large- volume paracentesis on a weekly basis patient presented to the hospital 5 days ago on 07/01/20192100 for evaluation of severe abdominal pain patient complaining of abdominal pain to be more of a sharp in nature 6-7 out of 10 no radiation did have some nausea but no vomiting on presentation to the hospital patient was afebrile he did have low-grade fever of 99.7 on 21 September patient has been tachy cardic patient did have a normal white count while he was dilated to 17.48 on 22 September kidney function has been normal potassium slightly low patient did have a paracentesis done yesterday which was bloody with 16,000 RBCs and 4600 nucleated cell with concern for peritonitis infection was consulted for further management patient did have a CT of abdominal pelvis completed on the we did show di lated main pancreatic duct with evidence of chronic pancreatitis CBD with air in the biliary tree and questionable pneumatosis in the cecum and proximal ascending colon while the patient has been evaluated by general surgery and is recommending medical treatment no surgical evaluation infectious disease was consulted for further management of antibiotic Review of Systems Positive point has been mentioned in the HPI rest of the systems are negative Past Medical History Past Medical History: Asthma, Diabetes Mellitus, GERD/Reflux, GI Bleed, Hypertension, Liver Disease, Thyroid Disorder Additional Past Medical History / Comment(s): Liver cirrhosis stage 4 portal htn, ETOH abuse, esophageal varicies, upper GI bleed, chronic thrombocytopenia, coagulopathy, pancytopenia, ascities, spinal stenosis: back/leg and feet pain, DDD, chronic back pain, neuropathy bilateral legs/feet, falls, bronchitis, 2010 [facility] [place], chronic pancreatitis, ascites, newly diagnosed diabetic , pulmonary hypertension, thrombocytopenia, patient no longer on transplant list related to high pulmonary hypertension. History of Any Multi-Drug Resistant Organisms: None Reported Past Surgical History: Appendectomy, Heart Catheterization, Joint Replacement Additional Past Surgical History / Comment(s): EGDs, multiple large volume paracentesis, back injections, R thumb reattachment, circumcism, right heart catheterization Past Anesthesia/Blood Transfusion Reactions: No Reported Reaction Additional Past Anesthesia/Blood Transfusion Reaction / Comm: Pt has received blood product without reaction. Past Psychological History: Depression Additional Psychological History / Comment(s): Pt is on disability. 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 He uses a cane to ambulate at times. He drives. Smoking Status: Light tobacco smoker Past Alcohol Use History: None Reported Additional Past Alcohol Use History / Comment(s): patient states he is a rare smoker. He might smoke 1 cigarette every 2 weeks. Past Drug Use History: Marijuana - Past Family History Father Family Medical History: Unable to Obtain Additional Family Medical History / Comment(s): Pt does not know his father's medical hx. Mother Family Medical History: No Reported History Additional Family Medical History / Comment(s): Mother is healthy. Brother(s) Additional Family Medical History / Comment(s): Patient has 3 brothers and one suffers from alcohol abuse. 2 brothers have no major medical problems. Patient does not have any sisters. Patient is one daughter 12 years old with no major medical problems. Medications and Allergies Home Medications Medication Instructions Recorded Confirmed Type Pantoprazole Sodium [Protonix] 20 mg PO BID 10/12/19 09/20/20 History Insulin Glargine [Lantus] 24 units SQ DAILY 06/11/20 09/20/20 History Sildenafil [Revatio] 20 mg PO TID 06/11/20 09/20/20 History Levothyroxine Sodium [Synthroid] 50 mcg PO DAILY 08/11/20 09/20/20 History Insulin Aspart [NovoLOG Flexpen] See Protocol SQ AC-TID PRN 09/06/20 09/20/20 History Furosemide [Lasix] 40 mg PO Q48H 09/17/20 09/20/20 History Spironolactone 50 mg PO Q48H 09/17/20 09/20/20 History Allergies Allergy/AdvReac Type Severity Reaction Status Date / Time No Known Allergies Allergy Verified 09/20/20 08:09 Physical Exam Vitals: Vital Signs Temp Pulse Pulse Resp BP BP BP 09/25/20 11:14 100 09/25/20 11:06 98 09/25/20 10:40 99 106/65 09/25/20 07:17 102 H 09/25/20 07:07 100 09/25/20 05:00 98.5 F 101 H 18 97/60 09/24/20 21:18 98 F 103 H 16 94/64 09/24/20 18:51 97 18 09/24/20 18:40 90 18 09/24/20 17:05 90 94/62 09/24/20 16:49 83 95/68 09/24/20 16:34 88 98/63 09/24/20 15:28 87 16 91/56 09/24/20 15:18 85 14 85/57 09/24/20 15:05 89 14 90/58 09/24/20 14:50 98.2 F 87 86 16 89/57 89/57 09/24/20 14:35 86 14 96/58 09/24/20 14:20 85 16 94/60 09/24/20 14:07 86 14 92/59 09/24/20 13:56 85 16 99/60 09/24/20 12:20 97.9 F 103 H 14 107/78 09/24/20 12:10 97.8 F 98 14 97/64 Pulse Ox 09/25/20 11:14 09/25/20 11:06 09/25/20 10:40 09/25/20 07:17 09/25/20 07:07 09/25/20 05:00 94 L 09/24/20 21:18 94 L 09/24/20 18:51 09/24/20 18:40 95 09/24/20 17:05 09/24/20 16:49 09/24/20 16:34 09/24/20 15:28 99 09/24/20 15:18 97 09/24/20 15:05 99 09/24/20 14:50 99 09/24/20 14:35 96 09/24/20 14:20 96 09/24/20 14:07 96 09/24/20 13:56 100 09/24/20 12:20 91 L 09/24/20 12:10 Intake and Output 09/24/20 09/25/20 09/25/20 22:59 06:59 14:59 Intake Total 1750 1750 Output Total 300 Balance 1450 1750 Intake: Intake, IV Titration 1750 1750 Amount Dextrose 5% in Water 1650 1650 000 ml @ 150 mls/hr IV . Q7H40M AWA with Sodium Bicarb (1 Meq/ml) 150 ml Rx#:[id number] Levofloxacin 500Mg-D5w 100 Pmx 500 mg In Dextrose/ Water 1 100ml.bag @ 100 mls/hr IVPB Q24H [facility] Rx#: [id number] Piperacillin-Tazobactam 3 100 .375 gm In Sodium Chloride 0.9% 100 ml @ 25 mls/hr IVPB Q8HR [facility] Rx# :[id number] Output: Urine 300 Other: Voiding Method Toilet Urinal # Voids 4 5 GENERAL DESCRIPTION: Middle-aged male lying in bed, no distress. No tachypnea or accessory muscle of respiration use. HEENT: Shows Pallor , no scleral icterus. Oral mucous membrane is dry. No pharyngeal erythema or thrush NECK: Trachea central, no thyromegaly. LUNGS: Unlabored breathing. Clear to auscultation anteriorly. No wheeze or crackle. HEART: S1, S2, regular rate and rhythm. No loud murmur ABDOMEN: Soft, mild distention and tenderness EXTREMITIES: One plus edema of feet. SKIN: No rash, no masses palpable. NEUROLOGICAL: The patient is awake, alert, oriented x3, mood and affect normal. Results CBC & Chem 7: 09/25/20 05:51 09/25/20 05:51 Labs: Abnormal Lab Results - Last 24 Hours (Table) 09/24/20 09/24/20 09/24/20 Range/Units 12:17 17:00 20:49 RBC (4.30-5.90) m/uL Hgb (13.0-17.5) gm/dL Hct (39.0-53.0) % RDW (11.5-15.5) % Plt Count (150-450) k/uL POC Glucose (mg/dL) 205 H 271 H 200 H (75-99) mg/dL 09/25/20 09/25/20 09/25/20 Range/Units 05:51 07:09 11:16 RBC 2.99 L (4.30-5.90) m/uL Hgb 8.1 L (13.0-17.5) gm/dL Hct 24.9 L (39.0-53.0) % RDW 18.4 H (11.5-15.5) % Plt Count 20 L (150-450) k/uL POC Glucose (mg/dL) 341 H 224 H (75-99) mg/dL Microbiology - Last 24 Hours (Table) 09/24/20 14:07 Gram Stain - Preliminary Paracentesis Fluid Body Fluid Culture - Preliminary 09/24/20 14:07 Anaerobic Culture - Preliminary Paracentesis Fluid Assessment and Plan Assessment: patient into the hospital with abdominal pain which is likely multifactorial in this patient with alcoholic cirrhosis of the liver with refractory ascites requiring multiple paracentesis now with significantly elevated white count in the paracentesis fluid likely concerning for bacterial peritonitis possible spontaneous because of underlying cirrhosis underlying secondary component not well excluded as there was pneumatosis of the cecum seen on the CT surgery has seen the patient recommending no surgical intervention will need to cover for the entire gram-negative both aerobes and anaerobes (1) Peritonitis Current Visit: Yes Status: Acute Code(s): K65.9 - PERITONITIS, UNSPECIFIED SNOMED Code(s): 49154721 Plan: 1-Zosyn 3.375 g every 8 hours should provide adequate antibiotic coverage 2-we will watch his clinical condition as well as culture closely We will follow on clinical condition and cultures to further adjust medication if needed Thank you for this consultation we will follow the patient along with you Time with Patient: Greater than 30
[2020-09-26] MEDS: HYDROmorphone 1 MG/ML 1 ML SYRINGE IVP PRN (09:00)
[2020-09-26] MEDS ORDERED: HYDROmorphone 2 MG TAB PO PRN (09:02)
[2020-09-26] MEDS: INSULIN DETEMIR (LEVEMIR) 100 UNIT/ML SYR SQ SCH (09:05)
[2020-09-26] MEDS: INSULIN ASPART (NovoLOG) 100 UNIT/ML VIAL SQ SCH ×7 (09:05→20:54)
[2020-09-26] MEDS: LIPASE 5,000/PROTEASE 17,000/AMYLASE 24,000 PO SCH ×3 (09:06→16:36)
[2020-09-26] MEDS: MIDODRINE 5 MG TAB PO SCH ×3 (09:06→16:35)
[2020-09-26] MEDS: PANTOPRAZOLE 40 MG/10 ML VIAL IV SCH (09:07)
[2020-09-26] MEDS: SILDENAFIL 20 MG TAB PO SCH ×3 (09:08→21:00)
[2020-09-26] MEDS ORDERED: SIMETHICONE 40 MG/0.6 ML DROPS 2,000 MG/30 ML BOTTLE PO SCH (09:15)
[2020-09-26] MEDS ORDERED: oxyCODONE-APAP 10-325MG 1 EACH TAB PO PRN (09:36)
--- NOTE | 2020-09-26 10:25 | P.PN ---
Subjective Progress Note Date: 09/26/20 Principal diagnosis: Ascites, pancreatitis, abdominal pain patient is 44-year-old male with a history of alcoholic cirrhosis of the liver with portal hypertension, refractory ascites, requiring large-volume paracentesis on a frequent basis who was admitted to the hospital for severe abdominal pain. as noted to have mild acute pancreatitis which has been improving. However he still has had persistent abdominal pain. He was started on broad-spectrum antibiotics for possibility of spontaneous bacterial peritonitis and presently on ceftriaxone and Flagyl. Still having abdominal pain however states it is improving. Still requesting pain medications every 2- 3 hours. He denies any nausea or vomiting.he underwent a CT of the abdomen and pelvis yesterday showing groundglass opacities in the bilateral lung concerning for multifocal pneumonia. Cirrhotic appearing liver. Dilated main pancreatic duct with evidence of chronic pancreatitis. Common bile duct stent with air in biliary tree. Questionable pneumatosis in the cecum/proximal descending colon. No amador free abdominal air. Large amount of ascites. Ventral midline abdominal hernia with herniation of fat and ascites fluid. Patient was seen by general surgery Dr. Olvera. He's had normal bowel movements. He states today he had some nausea and vomiting, still has abdominal pain. Feels like his abdomen is filling up with fluid again. At this time he has decided not to go with hospice or palliative care and will follow with pain management. Objective - Vital Signs Vital signs: Vital Signs Temp 97.9 F 09/26/20 04:10 Pulse 92 09/26/20 07:22 Resp 18 09/26/20 04:10 BP 96/68 09/26/20 04:10 Pulse Ox 95 09/26/20 04:10 Intake & Output 09/25/20 09/26/20 09/26/20 18:59 06:59 18:59 Intake Total 1720 2100 Balance 1720 2100 Weight 71.5 kg Intake: Intake, IV Titration 1100 1600 Amount Dextrose 5% in Water 1, 900 1500 000 ml @ 150 mls/hr IV . Q7H40M AWA with Sodium Bicarb (1 Meq/ml) 150 ml Rx#:[id number] Levofloxacin 500Mg-D5w 100 Pmx 500 mg In Dextrose/ Water 1 100ml.bag @ 100 mls/hr IVPB Q24H [facility] Rx#: [id number] Piperacillin-Tazobactam 3 100 100 .375 gm In Sodium Chloride 0.9% 100 ml @ 25 mls/hr IVPB Q8HR [facility] Rx# :[id number] Oral 620 500 Other: Voiding Method Toilet Toilet Urinal Urinal # Voids 4 6 - Exam General appearance: The patient is alert, oriented, appears in no acute distre ss. HET: Head is normocephalic and atraumatic. Conjunctiva pink. Sclera anicteric. Neck: Supple without lymphadenopathy. Abdomen: Soft, diffuse tenderness, distended with umbilical hernia, positive bowel sounds. No guarding or rigidity. Extremities: Normal skin color and turgor. No pedal edema Skin: No rashes, no jaundice Neurological: No focal deficits. Alert and oriented 3. - Labs CBC & Chem 7: 09/25/20 05:51 09/25/20 05:51 Labs: Abnormal Lab Results - Last 24 Hours (Table) 09/25/20 09/25/20 09/25/20 Range/Units 05:51 11:16 17:29 Sodium 129 L (135-145) mmol/L Potassium 3.3 L (3.5-5.5) mmol/L Chloride 95 L (96-109) mmol/L BUN 49.0 H (9.0-27.0) mg/dL BUN/Creatinine Ratio 35.00 H (12.00-20.00) Ratio Glucose 328 H (70-110) mg/dL POC Glucose (mg/dL) 224 H 110 H (75-99) mg/dL Calcium 7.3 L (8.7-10.3) mg/dL Total Bilirubin 6.7 H (0.3-1.2) mg/dL ALT 9 L (10-49) U/L Total Protein 3.8 L (6.2-8.2) g/dL Albumin 2.60 L (3.80-4.90) g/dL Globulin 1.2 L (1.6-3.3) g/dL 09/25/20 09/26/20 Range/Units 20:26 07:14 Sodium (135-145) mmol/L Potassium (3.5-5.5) mmol/L Chloride (96-109) mmol/L BUN (9.0-27.0) mg/dL BUN/Creatinine Ratio (12.00-20.00) Ratio Glucose (70-110) mg/dL POC Glucose (mg/dL) 131 H 271 H (75-99) mg/dL Calcium (8.7-10.3) mg/dL Total Bilirubin (0.3-1.2) mg/dL ALT (10-49) U/L Total Protein (6.2-8.2) g/dL Albumin (3.80-4.90) g/dL Globulin (1.6-3.3) g/dL Microbiology - Last 24 Hours (Table) 09/24/20 14:07 Gram Stain - Preliminary Paracentesis Fluid Body Fluid Culture - Preliminary Assessment and Plan (1) Acute on chronic pancreatitis Narrative/Plan: 44-year-old male with a past medical history of alcoholic cirrhosis of the liver, liver failure related to the above and into the emergency department with abdominal pain and abdominal distention. He was found to have acute on chronic pancreatitis. The patient follows with [facility], he is status post biliary stents. He is awaiting to possibly be on the liver transplant list. He has had multiple episodes of pancreatitis in the past related to alcohol abuse. He has not had any alcohol in several months. On admission he had a lipase of 1415, amylase 296, total bilirubin 2.1, alkaline phosphatase 78, AST 27, ALT 16. Patient states he has been having increased abdominal pain over the last couple days, also noted to have increased abdominal distention. Patient is to follow-up with [facility], acute on chronic alcoholic pancreatitis related to previous history of alcohol abuse. Continue IV fluids, pain medication, clear liquid diet. Current Visit: Yes Status: Acute Code(s): K85.90 - ACUTE PANCREATITIS WITHOUT NECROSIS OR INFECTION, UNSP; K86.1 - OTHER CHRONIC PANCREATITIS SNOMED Code(s): 254752683 (2) Abdominal pain Narrative/Plan: patient started on empiric antibiotics with ceftriaxone and Flagyl for possible spontaneous bacterial peritonitis Current Visit: No Status: Acute Code(s): R10.9 - UNSPECIFIED ABDOMINAL PAIN SNOMED Code(s): 18738479 (3) Alcoholic cirrhosis of liver Current Visit: No Status: Acute Code(s): K70.30 - ALCOHOLIC CIRRHOSIS OF LIVER WITHOUT ASCITES SNOMED Code(s): 847447187 (4) Ascites Narrative/Plan: Patient is scheduled for weekly paracentesis on Mondays, this past [place] he was unable to have his paracentesis due to low blood pressure. Today he underwent a Alvarado teases with 8.2 L of fluid removed. patient had repeat paracentesis with 6 2 L removedL of fluid removed Current Visit: No Status: Acute Code(s): R18.8 - OTHER ASCITES SNOMED Code(s): 121379256 (5) Chronic liver failure Current Visit: No Status: Acute Code(s): K72.10 - CHRONIC HEPATIC FAILURE WITHOUT COMA SNOMED Code(s): 225988156 Plan: 1. Continue symptomatic and supportive care 2. Paracentesis ordered for tomorrow 3. Continue diuretics as ordered for now 4. Repeat daily labs 5. Continue low-sodium diet 6. Pain medications as needed 7. Follow-up with [facility] as scheduled 8. Patient will continue outpatient therapeutic paracentesis as scheduled Thank you for this consultation, patient is cleared for discharge from gastroenterology Dr. Lucia Leiva I agree with the dictator's note, documented as a scribe by Janessa Love.
--- NOTE | 2020-09-26 10:53 | P.PN ---
Subjective Progress Note Date: 09/26/20 HISTORY OF PRESENT ILLNESS This is a 44-year-old male patient of Dr. Sarmad Linn. He has history of alcohol liver cirrhosis with portal hypertension and previous GI blee ding, hypertension and gastritis, pancreatitis, spinal stenosis and peripheral neuropathy, hypothyroidism. Patient also has chronic back pain and was under the care of Dr. Lagunas but violated pain contract and no longer seen by pain management. He is also known to Dr. Ghazal Leiva from previous EGDs in the past finding gastritis consistent with portal gastropathy but no gastric or esophageal varices or active bleeding. He has had multipe admissions for acute GI bleed. He had admission for right leg abscess requiring I&D in December 2017. Patient has had multiple admissions for acute pancreatitis with worsening ascites. Most recently, hospitalizations have been for ascites and therapeutic paracentesis. Patient has been following with [facility] for liver failure and evaluation for liver transplant. Patient complains of abdominal pain and abdominal distention. He needs to have paracentesis done early and he has an appointment with [facility] but could not wait for his appointment. Patient came into [facility] emergency center for evaluation. He was afebrile, heart rate 114, the pressure 108/78, pulse ox 98% on room air. WBC 8.2, hemoglobin 11.2, platelet count 58. Sodium 129, potassium 4.1, chloride 103, CO2 14, BUN 38 and creatinine 1.42. Blood sugar 190. Phosphorus 3.1. Magnesium 1.5 total bilirubin 2.1, AST 67, ALT 16, complaint phosphatase 78. CK less than 20. Amylase 296. Lipase 1415. Serum alcohol less than 10. Ammonia level XXVII. Patient has been admitted to the [facility] floor, consult with GI as well as interventional radiology for therapeutic Al[employer] T-System. Patient is currently nothing by mouth. 09/21: Patient underwent paracentesis yesterday with removal of 8.2 L of fluid. He continues to complain of abdominal pain and Dilaudid will be increased to 1- 1/2 mg every 3 hours. Patient has been afebrile, heart rate 109, blood pressure 92/59 to 77/56. Pulse ox 93% on 2 L. Patient is currently on clear liquid diet which will be continued. GI is on consult and following the patient. Repeat blood work reveals a lipase of 520. Blood sugars have been running between 260 and 431. It appears the patient did not receive his Levemir yesterday until 11:00 today and he also was given IV Solu-Medrol in the emergency center. Levemir has been resumed and we are adding in NovoLog 5 units with meals and NovoLog scale is already in place. IV fluids discontinued. Repeat blood work ordered for tomorrow and anticipate discharge home tomorrow. 09/22: Patient evaluated, lying in bed still has complaints of continued abdominal pain. Patient was noted to be hypotensive blood pressure was 80/55. Patient apparently was receiving midodrine at home, will restart midodrine 10 mg 3 times a day. Currently Dilaudid on hold due to hypotension, once blood pressure is above 110 systolic will restart Dilaudid. Patient also noted to have an elevated white count at 17.8, hemoglobin 9.4, creatinine 1.6, BUN 56, lipase 140, obtain 4.3. Patient will be started on protein supplements as well as albumin every 8 hours for 6 doses. Flagyl ordered for concerns for peritonitis. Patient was also hypoglycemic insulin has been adjusted will decrease NovoLog to 2 units 3 times a day and decrease Levemir to 20 units daily. Discussion with patient today regarding overall poor prognosis, patient would like to consult with palliative care, consult placed 09/23: Patient evaluated this morning, has complaints of worsening abdominal pain. Antibiotics will be changed to Zosyn along with Flagyl. Will also obtain a CT of the abdomen with oral contrast. Patient continues to be hypotensive, blood pressure 80/55, he continues with midodrine 10 mg 3 times a day. He was also started on albumin yesterday. Insulin was decreased yesterday to due to hypoglycemia, blood sugars much better running between 70 and 150. Patient is asking to be transferred to [facility] where he sees gastroenterology. We'll try to arrange for accommodations to be transferred to [facility] 09/24: Patient complains of continued pain and medications have been adjusted to Dilaudid 1-1/2 mg every 2 hours as needed. His blood pressure has been on the low side and Revatio decreased to 10 mg 3 times daily. Patient is or would be normally scheduled for paracentesis as an outpatient which we'll plan to have done today. Platelets ordered prior to and most likely patient will need albumin after. Regarding transferred to [facility], patient has not been accepted there as he is receiving care here that would be provided at the other facility. Patient has been afebrile, heart rate 98, blood pressure 97/64, pulse ox 91%. Blood sugars are running 104-205. INR today is 1.9. Hemoglobin 8.3. Sodium 128, BUN 54 creatinine 1.43. Platelets are at 20. CAT scan of the abdomen and pelvis revealed groundglass opacities in the bilateral lungs concerning for multifocal pneumonia. Cirrhotic-appearing liver. Dilated main pancreatic duct with evidence of chronic pancreatitis., Bile duct stent with air in the biliary tree. Questionable pneumatosis in the cecum/proximal descending colon. No amador free abdominal air. Large amount of ascites. Ventral midline abdominal hernia with herniation of fat and ascites fluid. C onsult with Dr. Olvera added for pneumatosis intestinalis. Radiology consult for paracentesis. C. difficile toxin has been ordered. Patient has continued to have diarrhea. A bicarb drip has been ordered. 09/25: Yesterday, patient underwent paracentesis with interventional radiology with removal of 6.25 L of straw-colored fluid. Patient has been seen by Dr. Olvera and feels patient has bacterial peritonitis. He is currently on Zosyn and Levaquin. Consult with Dr. Bob will be added. His diet will be increased to low sodium diet and ensure to be started today. Blood sugars are running high secondary to dextrose in bicarb drip and scheduled NovoLog will be increased to 6 units twice daily. Patient is status post IV albumin. Dr. Garcia discussed with the patient in detail that for him to get adequate pain control with his current diagnoses and problems, he would need to be palliative or hospice care but patient is not interested in this. He repeatedly states that he wants more pain medication and pain control. Patient's blood pressure is improved today at 97/60. He's been afebrile, heart rate 101, pulse ox 94% on 4 L. Repeat blood work reveals WBC 6.8, hemoglobin 8.1, platelet count 20. 09/26: Patient is abdominal distention with air. He states he is passing some gas. He states he was able to take 2 ensures yesterday. Mylicon will be added. Dilaudid increased to 2 mg every 2 hours as well as Percocet 10 mg added. Patient has a serum call with pain management in [place] on Thursday. Dr. Olvera has signed off as pneumotosis intestinalis has been ruled out. Patient has been afebrile, heart rate running between 87 106, blood pressure 96/68, pulse ox 95% on 3 L nasal cannula. Blood sugars are running between 110 and 271. Discussed discharge planning with the patient he is not planning on palliative or hospice care anytime soon. He wishes to follow-up with pain management as planned on Thursday. Anticipate discharge possibly tomorrow. REVIEW OF SYSTEMS reports Constitutional: Denies chills, Denies fatigue, Denies fever, Denies lethargy, Denies malaise, reports poor appetite, Denies weakness Eyes: denies blurred vision, denies pain Ears, nose, mouth and throat: Denies headache, Denies sore throat Cardiovascular: Denies chest pain, Denies decreased exercise tolerance, Denies dyspnea on exertion, Denies lightheadedness, Denies shortness of breath, Denies syncope Respiratory: Denies cough, Denies cough with sputum, Denies dyspnea, Denies hemoptysis, Denies home oxygen, Denies respiratory infections, Denies wheezing Gastrointestinal: Reports abdominal pain continues, reports abdominal distention Denies BRBPR, reports diarrhea, Denies melena, reports nausea, reports vomiting, reports decreased appetite Genitourinary: Denies dysuria, Denies urinary hesitancy, Denies urinary retention, reports dark urine Musculoskeletal: Denies frequent falls, Denies gait dysfunction, Denies muscle weakness, Denies myalgias Integumentary: Denies pruritus, Denies rash, Denies wounds Neurological: Denies numbness, Denies weakness Psychiatric: Denies anxiety, Denies depression Endocrine: Denies fatigue, Denies weight change, hyperglycemia PHYSICAL EXAMINATION Gen: This is a thin 44-year-old male. Patient is resting in bed and appears to be comfortable and in no acute distress. HEENT: Head is atraumatic, normocephalic. Pupils equal, round. Sclerae is anicteric. NECK: Supple. No JVD. No lymphadenopathy. No thyromegaly. LUNGS: Clear to auscultation. No wheezes or rhonchi. No intercostal retractions. HEART: Regular rate and rhythm. No murmur. ABDOMEN: Abdominal distention with air. Bowel sounds are present. No masses. Generalized abdominal tenderness. Large umbilical hernia with varicose veins. EXTREMITIES: No pedal edema. No calf tenderness. NEUROLOGICAL: Patient is awake, alert and oriented x3. Cranial nerves 2 through 12 are grossly intact. ASSESSMENT AND PLAN 1. Acute abdominal pain secondary to pancreatitis and worsening ascites status post paracentesis 09/20 with removal of 8.2 L and on 09/25 with removal of 6.25 L. Consult with interventional radiology and GI appreciated. Continue Dilaudid 2 mg IV push every 2 hours as needed. Parameters in place for pain medication due to hypotension. Percocet ordered in order to transfer patient to oral medications for discharge. 2. Acute on chronic pancreatitis. Discontinue IV fluids, continue clear liquid diet only, continue Dilaudid, repeat lab work in the morning, consult with GI appreciated. 3. History of alcoholic liver disease with portal hypertension and previous episodes of acute GI bleed with acute blood loss anemia resulting in multiple hospitalizations for GI bleeding from esophageal varices status post banding. Continue Protonix changed to IV daily. Continue Lasix, Aldactone. 4. Chronic ascites and scheduled paracentesis. Continue Aldactone and Lasix. 5. 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 6. Spinal stenosis with peripheral neuropathy. 7. History of tobacco use and dependence. 8. Hypothyroidism. Continue levothyroxine 50 g daily. 9. Recurrent depression. 10. Peripheral neuropathy secondary to alcoholism and spinal stenosis. 11. 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 Continue Lantus 24 units daily, additional dose of 10 units of NovoLog to be given with lunch, NovoLog 5 units with meals added and continue NovoLog scale. 12. GI prophylaxis. Protonix. 13. Severe protein calorie malnutrition. 13. DVT prophylaxis. No heparin due to thrombocytopenia. SCDs and ANDREEA hose and early ambulation. 15. Peritonitis. Continue IV Flagyl and Zosyn. Consult with Dr. Bob. 16. Chronic hypotension. Revatio decreased to 10 mg 3 times daily. DISCHARGE PLAN Home on the day Impression and plan of care have been directed as dictated by the signing physician. Giovana Kathleen nurse practitioner acting as scribe for signing physician. Objective - Vital Signs Vital signs: Vital Signs Temp 97.9 F 09/26/20 04:10 Pulse 92 09/26/20 07:22 Resp 18 09/26/20 04:10 BP 96/68 09/26/20 04:10 Pulse Ox 95 09/26/20 04:10 Intake & Output 09/25/20 09/26/20 09/26/20 18:59 06:59 18:59 Intake Total 1720 2100 Balance 1720 2100 Weight 71.5 kg Intake: Intake, IV Titration 1100 1600 Amount Dextrose 5% in Water 1, 900 1500 000 ml @ 150 mls/hr IV . Q7H40M AWA with Sodium Bicarb (1 Meq/ml) 150 ml Rx#:[id number] Levofloxacin 500Mg-D5w 100 Pmx 500 mg In Dextrose/ Water 1 100ml.bag @ 100 mls/hr IVPB Q24H AWA Rx#: [id number] Piperacillin-Tazobactam 3 100 100 .375 gm In Sodium Chloride 0.9% 100 ml @ 25 mls/hr IVPB Q8HR AWA Rx# :[id number] Oral 620 500 Other: Voiding Method Toilet Toilet Urinal Urinal # Voids 4 6 - Labs CBC & Chem 7: 09/25/20 05:51 09/25/20 05:51 Labs: Abnormal Lab Results - Last 24 Hours (Table) 09/25/20 09/25/20 09/25/20 Range/Units 05:51 11:16 17:29 Sodium 129 L (135-145) mmol/L Potassium 3.3 L (3.5-5.5) mmol/L Chloride 95 L (96-109) mmol/L BUN 49.0 H (9.0-27.0) mg/dL BUN/Creatinine Ratio 35.00 H (12.00-20.00) Ratio Glucose 328 H (70-110) mg/dL POC Glucose (mg/dL) 224 H 110 H (75-99) mg/dL Calcium 7.3 L (8.7-10.3) mg/dL Total Bilirubin 6.7 H (0.3-1.2) mg/dL ALT 9 L (10-49) U/L Total Protein 3.8 L (6.2-8.2) g/dL Albumin 2.60 L (3.80-4.90) g/dL Globulin 1.2 L (1.6-3.3) g/dL 09/25/20 09/26/20 Range/Units 20:26 07:14 Sodium (135-145) mmol/L Potassium (3.5-5.5) mmol/L Chloride (96-109) mmol/L BUN (9.0-27.0) mg/dL BUN/Creatinine Ratio (12.00-20.00) Ratio Glucose (70-110) mg/dL POC Glucose (mg/dL) 131 H 271 H (75-99) mg/dL Calcium (8.7-10.3) mg/dL Total Bilirubin (0.3-1.2) mg/dL ALT (10-49) U/L Total Protein (6.2-8.2) g/dL Albumin (3.80-4.90) g/dL Globulin (1.6-3.3) g/dL Microbiology - Last 24 Hours (Table) 09/24/20 14:07 Gram Stain - Preliminary Paracentesis Fluid Body Fluid Culture - Preliminary
[2020-09-26] MEDS: SIMETHICONE 40 MG/0.6 ML DROPS 2,000 MG/30 ML BOTTLE PO SCH ×4 (12:10→21:01)
[2020-09-26] MEDS: DEXTROSE 5% IN WATER 1,000 ML with SODIUM BICARB (1 MEQ/ML) 150 ML IV SCH (12:10)
[2020-09-26 12:15] LABS: Glucose,Whole Blood 237 mg/dL (75-99)
--- NOTE | 2020-09-26 16:31 | PN ---
PROGRESS NOTE DATE OF SERVICE: 09/20/2020 REASON FOR FOLLOWUP: Peritonitis, spontaneous, bacterial. INTERVAL HISTORY: The patient is afebrile. The patient's abdominal pain has slightly decreased in intensity. Denies having any chest pain, shortness of breath. No cough. No vomiting or any worsening diarrhea. PHYSICAL EXAMINATION: Blood pressure 93/60, pulse of 104, temperature 98.9. She is 91% on 3 L nasal cannula. General description is a middle-aged female lying in bed in no distress. Respiratory system: Unlabored breathing, clear to auscultation anteriorly. Heart S1, S2. Regular rate and rhythm. Abdomen: Soft, no tenderness. LABS: No new labs have been obtained today. The abdominal cultures are currently pending. DIAGNOSTIC IMPRESSION AND PLAN: Patient with spontaneous bacterial peritonitis in this patient did have alcoholic cirrhosis and refractory ascites requiring multiple paracentesis. Cultures are currently pending. Patient is covered with Zosyn, to continue. Adjusting it further based on culture report. Prognosis remains to be guarded. Continue supportive care. MMODL / IJN: [id number] /
[2020-09-26 17:36] LABS: Glucose,Whole Blood 109 mg/dL (75-99)
[2020-09-26] MEDS: HYDROmorphone 2 MG/ML 1 ML SYRINGE IVP PRN ×3 (18:46→23:33)
[2020-09-26 20:50] LABS: Glucose,Whole Blood 93 mg/dL (75-99)
[2020-09-26] MEDS ORDERED: HYDROmorphone 1 MG/ML 1 ML SYRINGE ONE (23:59)
[2020-09-26] MEDS ORDERED: MAG HYDROX/AL HYDROX/SIMETH 30 ML CUP ONE (23:59)
[2020-09-26] MEDS ORDERED: DEXTROSE 5% IN WATER 1,000 ML BAG ONE (23:59)
[2020-09-26] MEDS ORDERED: SODIUM CHLORIDE 0.9% 100 ML BAG ONE (23:59)
[2020-09-26] MEDS ORDERED: PIPERACILLIN-TAZOBACTAM 3.375 GM VIAL ONE (23:59)
[2020-09-26] MEDS ORDERED: SODIUM BICARB 8.4% 50 ML VIAL (1 MEQ/ML) ONE (23:59)
[2020-09-26] MEDS ORDERED: LEVOTHYROXINE 50 MCG TAB ONE (23:59)
[2020-09-27] MEDS: HYDROmorphone 2 MG/ML 1 ML SYRINGE IVP PRN ×8 (02:02→17:42)
[2020-09-27 06:07] LABS: Anisocytosis Slight; HCT 28.4 % (39.0-53.0); HGB 9.4 gm/dL (13.0-17.5); MCH 27.3 pg (25.0-35.0); MCV 82.7 fL (80.0-100.0); Mean Platelet Volume 8.2; Microcytosis Slight; RBC 3.43 m/uL (4.30-5.90); RDW 18.4 % (11.5-15.5); WBC 11.3 k/uL (3.8-10.6)
[2020-09-27 06:12] LABS: Platelet Count 19 k/uL (150-450)
[2020-09-27 06:15] LABS: INR 1.9 (<1.2); Prothrombin Time 18.7 sec (9.0-12.0)
[2020-09-27] MEDS: LEVOTHYROXINE 50 MCG TAB PO SCH (06:20)
[2020-09-27 06:22] LABS: African American GFR (CKD) 46 (>60 ml/min/1.73 sqM); Anion Gap 12 mmol/L; Blood Urea Nitrogen 56 mg/dL (9-20); Calcium 7.2 mg/dL (8.4-10.2); Carbon Dioxide 28 mmol/L (22-30); Chloride 82 mmol/L (98-107); Glucose 133 mg/dL (74-99); Non-African American GFR(CKD) 39 (>60 ml/min/1.73 sqM); Potassium 3.2 mmol/L (3.5-5.1); Sodium 122 mmol/L (137-145)
[2020-09-27] MEDS: IPRATROPIUM-ALBUTEROL 3 ML NEB INHALATION SCH ×3 (07:24→15:17)
[2020-09-27] MEDS ORDERED: PANTOPRAZOLE 40 MG TABLET PO SCH (07:30)
[2020-09-27 07:51] LABS: Glucose,Whole Blood 172 mg/dL (75-99)
[2020-09-27] MEDS: PIPERACILLIN-TAZOBACTAM 3.375 GM in SODIUM CHLORIDE 0.9% 100 ML IVPB SCH ×2 (08:21→17:22)
[2020-09-27] MEDS: SPIRONOLACTONE 25 MG TAB PO SCH (08:21)
[2020-09-27] MEDS: INSULIN ASPART (NovoLOG) 100 UNIT/ML VIAL SQ SCH ×6 (08:22→17:26)
[2020-09-27] MEDS: FUROSEMIDE 40 MG TAB PO SCH (08:22)
[2020-09-27] MEDS: LIPASE 5,000/PROTEASE 17,000/AMYLASE 24,000 PO SCH ×3 (08:22→17:25)
[2020-09-27] MEDS: MIDODRINE 5 MG TAB PO SCH ×3 (08:22→17:24)
[2020-09-27] MEDS: INSULIN DETEMIR (LEVEMIR) 100 UNIT/ML SYR SQ SCH (08:22)
[2020-09-27] MEDS: SILDENAFIL 20 MG TAB PO SCH ×2 (08:23→17:15)
[2020-09-27] MEDS: SIMETHICONE 40 MG/0.6 ML DROPS 2,000 MG/30 ML BOTTLE PO SCH ×4 (10:17→17:25)
--- NOTE | 2020-09-27 12:23 | P.DS ---
<Giovana Kathleen A - Last Filed: 09/27/20 12:20> Providers Expected date of discharge: 09/27/20 Hospital Course: HISTORY OF PRESENT ILLNESS This is a 44-year-old male patient of Dr. Sarmad Linn. He has history of alcohol liver cirrhosis with portal hypertension and previous GI bleeding, hypertension and gastritis, pancreatitis, spinal stenosis and peripheral neuropathy, hypothyroidism. Patient also has chronic back pain and was under the care of Dr. Lagunas but violated pain contract and no longer seen by pain management. He is also known to Dr. Ghazal Leiva from previous EGDs in the past finding gastritis consistent with portal gastropathy but no gastric or esophageal varices or active bleeding. He has had multipe admissions for acute GI bleed. He had admission for right leg abscess requiring I&D in December 2017. Patient has had multiple admissions for acute pancreatitis with worsening ascites. Most recently, hospitalizations have been for ascites and therapeutic paracentesis. Patient has been following with [facility] for liver failure and evaluation for liver transplant. Patient complains of abdominal pain and abdominal distention. He needs to have paracentesis done early and he has an appointment with [facility] but could not wait for his appointment. Patient came into [facility] emergency center for evaluation. He was afebrile, heart rate 114, the pressure 108/78, pulse ox 98% on room air. WBC 8.2, hemoglobin 11.2, platelet count 58. Sodium 129, potassium 4.1, chloride 103, CO2 14, BUN 38 and creatinine 1.42. Blood sugar 190. Phosphorus 3.1. Magnesium 1.5 total bilirubin 2.1, AST 67, ALT 16, complaint phosphatase 78. CK less than 20. Amylase 296. Lipase 1415. Serum alcohol less than 10. Ammonia level XXVII. Patient has been admitted to the [facility] floor, consult with GI as well as interventional radiology for therapeutic Alvarado T-System. Patient is currently nothing by mouth. 09/21: Patient underwent paracentesis yesterday with removal of 8.2 L of fluid. He continues to complain of abdominal pain and Dilaudid will be increased to 1- 1/2 mg every 3 hours. Patient has been afebrile, heart rate 109, blood pressure 92/59 to 77/56. Pulse ox 93% on 2 L. Patient is currently on clear liquid diet which will be continued. GI is on consult and following the patient. Repeat blood work reveals a lipase of 520. Blood sugars have been running between 260 and 431. It appears the patient did not receive his Levemir yesterday until 11:00 today and he also was given IV Solu-Medrol in the emergency center. Levemir has been resumed and we are adding in NovoLog 5 units with meals and NovoLog scale is already in place. IV fluids discontinued. Repeat blood work ordered for tomorrow and anticipate discharge home tomorrow. 09/22: Patient evaluated, lying in bed still has complaints of continued abdominal pain. Patient was noted to be hypotensive blood pressure was 80/55. Patient apparently was receiving midodrine at home, will restart midodrine 10 mg 3 times a day. Currently Dilaudid on hold due to hypotension, once blood pressure is above 110 systolic will restart Dilaudid. Patient also noted to have an elevated white count at 17.8, hemoglobin 9.4, creatinine 1.6, BUN 56, lipase 140, obtain 4.3. Patient will be started on protein supplements as well as albumin every 8 hours for 6 doses. Flagyl ordered for concerns for peritonitis. Patient was also hypoglycemic insulin has been adjusted will decrease NovoLog to 2 units 3 times a day and decrease Levemir to 20 units daily. Discussion with patient today regarding overall poor prognosis, patient would like to consult with palliative care, consult placed 09/23: Patient evaluated this morning, has complaints of worsening abdominal pain. Antibiotics will be changed to Zosyn along with Flagyl. Will also obtain a CT of the abdomen with oral contrast. Patient continues to be hypotensive, blood pressure 80/55, he continues with midodrine 10 mg 3 times a day. He was also started on albumin yesterday. Insulin was decreased yesterday to due to hypoglycemia, blood sugars much better running between 70 and 150. Patient is asking to be transferred to [facility] where he sees gastroenterology. We'll try to arrange for accommodations to be transferred to [facility] 09/24: Patient complains of continued pain and medications have been adjusted to Dilaudid 1-1/2 mg every 2 hours as needed. His blood pressure has been on the low side and Revatio decreased to 10 mg 3 times daily. Patient is or would be normally scheduled for paracentesis as an outpatient which we'll plan to have done today. Platelets ordered prior to and most likely patient will need albumin after. Regarding transferred to [facility], patient has not been accepted there as he is receiving care here that would be provided at the other facility. Patient has been afebrile, heart rate 98, blood pressure 97/64, pulse ox 91%. Blood sugars are running 104-205. INR today is 1.9. Hemoglobin 8.3. Sodium 128, BUN 54 creatinine 1.43. Platelets are at 20. CAT scan of the abdomen and pelvis revealed groundglass opacities in the bilateral lungs concerning for multifocal pneumonia. Cirrhotic-appearing liver. Dilated main pancreatic duct with evidence of chronic pancreatitis., Bile duct stent with air in the biliary tree. Questionable pneumatosis in the cecum/proximal descending colon. No amador free abdominal air. Large amount of ascites. Ventral midline abdominal hernia with herniation of fat and ascites fluid. Consult with Dr. Olvera added for pneumatosis intestinalis. Radiology consult f or paracentesis. C. difficile toxin has been ordered. Patient has continued to have diarrhea. A bicarb drip has been ordered. 09/25: Yesterday, patient underwent paracentesis with interventional radiology with removal of 6.25 L of straw-colored fluid. Patient has been seen by Dr. Olvera and feels patient has bacterial peritonitis. He is currently on Zosyn and Levaquin. Consult with Dr. Bob will be added. His diet will be increased to low sodium diet and ensure to be started today. Blood sugars are running high secondary to dextrose in bicarb drip and scheduled NovoLog will be increased to 6 units twice daily. Patient is status post IV albumin. Dr. Garcia discussed with the patient in detail that for him to get adequate pain control with his current diagnoses and problems, he would need to be palliative or hospice care but patient is not interested in this. He repeatedly states that he wants more pain medication and pain control. Patient's blood pressure is improved today at 97/60. He's been afebrile, heart rate 101, pulse ox 94% on 4 L. Repeat blood work reveals WBC 6.8, hemoglobin 8.1, platelet count 20. 09/26: Patient is abdominal distention with air. He states he is passing some gas. He states he was able to take 2 ensures yesterday. Mylicon will be added. Dilaudid increased to 2 mg every 2 hours as well as Percocet 10 mg added. Patient has a serum call with pain management in [place] on Thursday. Dr. Olvera has signed off as pneumotosis intestinalis has been ruled out. Patient has been afebrile, heart rate running between 87 106, blood pressure 96/68, pulse ox 95% on 3 L nasal cannula. Blood sugars are running between 110 and 271. Discussed discharge planning with the patient he is not planning on palliative or hospice care anytime soon. He wishes to follow-up with pain management as planned on Thursday. Anticipate discharge possibly tomorrow. 09/27: Patient had ultrasound this morning to be evaluated for possible paracentesis today. Interventional radiology to address. Platelets have been ordered in case patient has paracentesis. Patient has agreed to palliative care and walker has been ordered for him. We are planning to send the patient home on antibiotics with Augmentin. Percocet prescription has been provided and opioid start talking form has been reviewed with the patient and he verbalizes understanding. Score 460. Patient will be discharged today once all arrangements are completed. ASSESSMENT AND PLAN 1. Acute abdominal pain secondary to pancreatitis and worsening ascites status post paracentesis 09/20 with removal of 8.2 L and on 09/25 with removal of 6.25 L. 2. Acute on chronic pancreatitis. 3. History of alcoholic liver disease with portal hypertension and previous episodes of acute GI bleed with acute blood loss anemia resulting in multiple hospitalizations for GI bleeding from esophageal varices status post banding. 4. Chronic ascites and paracentesis. 5. 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 6. Spinal stenosis with peripheral neuropathy. 7. History of tobacco use and dependence. 8. Hypothyroidism. 9. Recurrent depression. 10. Peripheral neuropathy secondary to alcoholism and spinal stenosis. 11. 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 12. GI prophylaxis. 13. Severe protein calorie malnutrition. 14. Peritonitis. 15. Chronic hypotension. DISCHARGE PLAN Home with palliative care Impression and plan of care have been directed as dictated by the signing physician. Giovana Kathleen nurse practitioner acting as scribe for signing physician. Patient Condition at Discharge: Stable Plan - Discharge Summary Discharge Rx Participant: Yes New Discharge Prescriptions: New RX: oxyCODONE-APAP 10-325MG [Percocet 10-325 mg] 1 each PO Q4H PRN #18 tab PRN Reason: Pain RX: Lipase/Protease/Amylase [Robert Blunt 5,000 Unit Capsule] 2 each PO AC-TID #90 capsule. Amoxicillin/Potassium Clav [Augmentin 875-125 Tablet] 1 tab PO BID 7 Days #14 tab RX: Mag Hydrox/Al Hydrox/Simeth [Maalox] 30 ml PO Q4HR PRN ml PRN Reason: Gi Upset RX: Simethicone 40 mg/0.6 ml Drops [Mylicon Drops] 40 mg PO QID ml RX: Midodrine [ProAmatine] 10 mg PO AC-TID #180 tab Continue RX: Pantoprazole Sodium [Protonix] 20 mg PO BID RX: Levothyroxine Sodium [Synthroid] 50 mcg PO DAILY RX: Spironolactone 50 mg PO Q48H RX: Sildenafil [Revatio] 20 mg PO TID RX: Insulin Aspart [NovoLOG Flexpen] See Protocol SQ AC-TID PRN PRN Reason: HIGH BLOOD SUGAR RX: Furosemide [Lasix] 40 mg PO Q48H Changed RX: Insulin Glargine [Lantus] 18 units SQ DAILY #0 Discharge Medication List RX: Pantoprazole Sodium [Protonix] 20 mg PO BID 10/12/19 [History] RX: Sildenafil [Revatio] 20 mg PO TID 06/11/20 [History] RX: Levothyroxine Sodium [Synthroid] 50 mcg PO DAILY 08/11/20 [History] RX: Insulin Aspart [NovoLOG Flexpen] See Protocol SQ AC-TID PRN 09/06/20 [History] RX: Furosemide [Lasix] 40 mg PO Q48H 09/17/20 [History] RX: Spironolactone 50 mg PO Q48H 09/17/20 [History] Amoxicillin/Potassium Clav [Augmentin 875-125 Tablet] 1 tab PO BID 7 Days #14 tab 09/27/20 [Rx] RX: Insulin Glargine [Lantus] 18 units SQ DAILY #0 09/27/20 [Rx] RX: Lipase/Protease/Amylase [Robert Blunt 5,000 Unit Capsule] 2 each PO AC-TID #90 capsule. 09/27/20 [Rx] RX: Mag Hydrox/Al Hydrox/Simeth [Maalox] 30 ml PO Q4HR PRN ml 09/27/20 [Rx] RX: Midodrine [ProAmatine] 10 mg PO AC-TID #180 tab 09/27/20 [Rx] RX: Simethicone 40 mg/0.6 ml Drops [Mylicon Drops] 40 mg PO QID ml 09/27/20 [Rx] RX: oxyCODONE-APAP 10-325MG [Percocet 10-325 mg] 1 each PO Q4H PRN #18 tab 09/27/20 [Rx] Follow up Appointment(s)/Referral(s): Katie Romeo [NON-STAFF] - 1 Week (walker delivered to patient's room) Pablo Linn MD [Primary Care Provider] - 10/04/20 11:00 am Patient Instructions/Handouts: Oxycodone/Acetaminophen (By mouth), Amoxicillin/Clavulanate Potassium (By mouth), Pancrelipase (By mouth), Midodrine (By mouth), Pancreatitis (DC), Ascites (DC), Thrombocytopenia (DC), Paracentesis (DC) Discharge Disposition: HOME WITH HOSPICE <Anu Garcia - Last Filed: 10/04/20 18:49> Providers Date of admission: 09/20/20 03:27 Attending physician: Wilton Bateman Consults: 09/20/20 03:27 Consult Physician Routine Consulting Provider: Scot Augustine Consult Reason/Comments: pancreatitis Do you want consulting provider notified?: Yes 09/24/20 08:54 Consult Physician Routine Consulting Provider: Janell Olvera Consult Reason/Comments: Pneumatosis intestinalis Do you want consulting provider notified?: Yes 09/25/20 09:35 Consult Physician Routine Consulting Provider: Tierra Bob Consult Reason/Comments: bacterial peritonitis Do you want consulting provider notified?: Yes Primary care physician: Pablo Linn
[2020-09-27 12:31] LABS: Glucose,Whole Blood 166 mg/dL (75-99)
--- NOTE | 2020-09-27 12:35 | US ---
EXAMINATION TYPE: US abdomen limited DATE OF EXAM: 09/27/2020 COMPARISON: Correlation CT 09/23/2020 CLINICAL HISTORY: 44-year-old male assess for fluid pocket. Abdominal distention Technique: All four quadrants scanned. FINDINGS: Moderate abdominal ascites is noted throughout. IMPRESSION: Moderate 4 quadrant abdominal ascites throughout the abdomen.
--- NOTE | 2020-09-27 15:18 | P.PN ---
Subjective Progress Note Date: 09/27/20 Principal diagnosis: Ascites, pancreatitis, abdominal pain patient is 44-year-old male with a history of alcoholic cirrhosis of the liver with portal hypertension, refractory ascites, requiring large-volume paracentesis on a frequent basis who was admitted to the hospital for severe abdominal pain. as noted to have mild acute pancreatitis which has been improving. However he still has had persistent abdominal pain. He was started on broad-spectrum antibiotics for possibility of spontaneous bacterial peritonitis and presently on ceftriaxone and Flagyl. Still having abdominal pain however states it is improving. He underwent a CT of the abdomen and pelvis yesterday showing groundglass opacities in the bilateral lung concerning for multifocal pneumonia. Cirrhotic appearing liver. Dilated main pancreatic duct with evidence of chronic pancreatitis. Common bile duct stent with air in biliary tree. Questionable pneumatosis in the cecum/proximal descending colon. No amador free abdominal air. Large amount of ascites. Ventral midline abdominal hernia with herniation of fat and ascites fluid. Patient was seen by general surgery Dr. Olvera. He's had normal bowel movements. He is without any major complaints today. He does state that his abdomen feels like it's healing up and is distended. He still has abdominal pain. Patient scheduled for paracentesis, was noted to have a platelet count of 19. Ultrasound for paracentesis to show moderate amount of ascites, patient will undergo paracentesis with platelet transfusion. The plan is for discharge home. Objective - Vital Signs Vital signs: Vital Signs Temp 98 F 09/27/20 13:35 Pulse 91 09/27/20 14:26 Resp 18 09/27/20 14:26 BP 94/59 09/27/20 14:26 Pulse Ox 97 09/27/20 14:26 Intake & Output 09/26/20 09/27/20 09/27/20 18:59 06:59 18:59 Intake Total 2540 700 60 Output Total 325 Balance 2215 700 60 Weight 71.5 kg Intake: Intake, IV Titration 1200 100 Amount Dextrose 5% in Water 1, 1000 000 ml @ 150 mls/hr IV . Q7H40M AWA with Sodium Bicarb (1 Meq/ml) 150 ml Rx#:[id number] Levofloxacin 500Mg-D5w 100 Pmx 500 mg In Dextrose/ Water 1 100ml.bag @ 100 mls/hr IVPB Q24H AWA Rx#: [id number] Piperacillin-Tazobactam 3 100 100 .375 gm In Sodium Chloride 0.9% 100 ml @ 25 mls/hr IVPB Q8HR [facility] Rx# :[id number] Oral 1340 600 60 Blood Product 0 Platelet Pheresis Pas 0 Psoralen Unit [id number] Output: Urine 325 Other: Voiding Method Toilet Toilet Urinal Urinal # Voids 5 3 - Exam General appearance: The patient is alert, oriented, appears in no acute distress. HET: Head is normocephalic and atraumatic. Conjunctiva pink. Sclera anicteric. Neck: Supple without lymphadenopathy. Abdomen: Soft, diffuse tenderness, distended with umbilical hernia, positive bowel sounds. No guarding or rigidity. Extremities: Normal skin color and turgor. No pedal edema Skin: No rashes, no jaundice Neurological: No focal deficits. Alert and oriented 3. - Labs CBC & Chem 7: 09/27/20 05:25 09/27/20 05:25 Labs: Abnormal Lab Results - Last 24 Hours (Table) 09/26/20 09/27/20 09/27/20 Range/Units 17:34 05:25 05:25 WBC 11.3 H (3.8-10.6) k/uL RBC 3.43 L (4.30-5.90) m/uL Hgb 9.4 L (13.0-17.5) gm/dL Hct 28.4 L (39.0-53.0) % RDW 18.4 H (11.5-15.5) % Plt Count 19 L* (150-450) k/uL PT 18.7 H (9.0-12.0) sec INR 1.9 H (<1.2) Sodium (137-145) mmol/L Potassium (3.5-5.1) mmol/L Chloride (98-107) mmol/L BUN (9-20) mg/dL Creatinine (0.66-1.25) mg/dL Glucose (74-99) mg/dL POC Glucose (mg/dL) 109 H (75-99) mg/dL Calcium (8.4-10.2) mg/dL 09/27/20 09/27/20 09/27/20 Range/Units 05:25 07:47 12:29 WBC (3.8-10.6) k/uL RBC (4.30-5.90) m/uL Hgb (13.0-17.5) gm/dL Hct (39.0-53.0) % RDW (11.5-15.5) % Plt Count (150-450) k/uL PT (9.0-12.0) sec INR (<1.2) Sodium 122 L (137-145) mmol/L Potassium 3.2 L (3.5-5.1) mmol/L Chloride 82 L (98-107) mmol/L BUN 56 H (9-20) mg/dL Creatinine 2.00 H (0.66-1.25) mg/dL Glucose 133 H (74-99) mg/dL POC Glucose (mg/dL) 172 H 166 H (75-99) mg/dL Calcium 7.2 L (8.4-10.2) mg/dL Microbiology - Last 24 Hours (Table) 09/24/20 14:07 Anaerobic Culture - Preliminary Paracentesis Fluid 09/24/20 14:07 Gram Stain - Preliminary Paracentesis Fluid Body Fluid Culture - Preliminary Assessment and Plan (1) Acute on chronic pancreatitis Narrative/Plan: 44-year-old male with a past medical history of alcoholic cirrhosis of the liver, liver failure related to the above and into the emergency department with abdominal pain and abdominal distention. He was found to have acute on chronic pancreatitis. The patient follows with [facility], he is status post biliary stents. He is awaiting to possibly be on the liver transplant list. He has had multiple episodes of pancreatitis in the past related to alcohol abuse. He has not had any alcohol in several months. On admission he had a lipase of 1415, amylase 296, total bilirubin 2.1, alkaline phosphatase 78, AST 27, ALT 16. Patient states he has been having increased abdominal pain over the last couple days, also noted to have increased abdominal distention. Patient is to follow-up with [facility], acute on chronic alcoholic pancreatitis related to previous history of alcohol abuse. Continue IV fluids, pain medication, clear liquid diet. Current Visit: Yes Status: Acute Code(s): K85.90 - ACUTE PANCREATITIS WITHOUT NECROSIS OR INFECTION, UNSP; K86.1 - OTHER CHRONIC PANCREATITIS SNOMED Code(s): 087052086 (2) Abdominal pain Narrative/Plan: patient started on empiric antibiotics with ceftriaxone and Flagyl for possible spontaneous bacterial peritonitis Current Visit: No Status: Acute Code(s): R10.9 - UNSPECIFIED ABDOMINAL PAIN SNOMED Code(s): 77852124 (3) Alcoholic cirrhosis of liver Current Visit: No Status: Acute Code(s): K70.30 - ALCOHOLIC CIRRHOSIS OF LIVER WITHOUT ASCITES SNOMED Code(s): 024333026 (4) Ascites Narrative/Plan: Patient is scheduled for weekly paracentesis on Mondays, this past Thursday he was unable to have his paracentesis due to low blood pressure. Today he underwent a Alvarado teases with 8.2 L of fluid removed. patient had repeat paracentesis with 6 2 L removedL of fluid removed Current Visit: No Status: Acute Code(s): R18.8 - OTHER ASCITES SNOMED Code(s): 116238041 (5) Chronic liver failure Current Visit: No Status: Acute Code(s): K72.10 - CHRONIC HEPATIC FAILURE WITHOUT COMA SNOMED Code(s): 470461848 Plan: 1. Continue symptomatic and supportive care 2. Paracentesis and platelets ordered 3. Continue diuretics as ordered for now 4. Continue low-sodium diet 5. Pain medications as needed 6. Follow-up with [facility] as scheduled 7. Patient will continue outpatient therapeutic paracentesis as scheduled Thank you for this consultation, patient is cleared for discharge from gastroenterology Dr. Lucia Leiva I agree with the dictator's note, documented as a scribe by Janessa Love.
[2020-09-27 15:49] VITALS: TEMP 98.1
[2020-09-27 16:01] VITALS: RESP 16
[2020-09-27 16:26] VITALS: BP 91/56; PULSE 99
[2020-09-27] MEDS: ALBUMIN HUMAN 25% 50 ML in EMPTY BAG 1 BAG IVPB SCH ×3 (17:14→18:05)
[2020-09-27 17:29] LABS: Glucose,Whole Blood 120 mg/dL (75-99)
--- NOTE | 2020-09-27 18:38 | PN ---
PROGRESS NOTE DATE OF SERVICE: 09/27/2020 REASON FOR FOLLOWUP: Peritonitis. INTERVAL HISTORY: The patient is afebrile, has been complaining of more abdominal distention and some discomfort today. Some nausea but no vomiting. No chest pain, shortness of breath or cough. PHYSICAL EXAMINATION: Blood pressure 91/57, pulse of 97, temperature 98.1. He is 95% on 3 L nasal cannula. General description is a middle-aged male lying in bed in no distress. Respiratory system: Unlabored breathing, clear to auscultation anteriorly. Heart S1, S2. Regular rate and rhythm. Abdomen soft, remains to be distended, no guarding. No rigidity. LABS: Hemoglobin 9.4, white count 11.2, BUN of 56, creatinine is 2.0. Abdominal culture is pending. DIAGNOSTIC IMPRESSION AND PLAN: Patient with peritonitis in this patient who did have refractory ascites requiring multiple paracenteses significantly positive peritoneal fluid. Cultures are pending. Patient is covered with Zosyn to continue and monitor clinical course closely. MMODL / IJN: [id number] / MTDD
--- NOTE | 2020-09-28 09:51 | US ---
Ultrasound-guided paracentesis. DATE OF EXAM: 09/27/2020 CLINICAL HISTORY: Ascites The procedure was discussed with the patient. The risks, complications, benefits, and alternatives we re discussed and any questions were answered. Informed consent was obtained. The patient was placed s upine on the ultrasound table and prepped and draped in the usual sterile fashion. All elements of maximal barrier technique were utilized. Under ultrasound guidance, access into the right lower quadrant was obtained, via the paracentesis catheter system and direct ultrasound guidanc e. Approximately 6.8 liters of straw-colored fluid was removed. The patient was stable throughout the pr ocedure and remained stable upon discharge from Department of Radiology. IMPRESSION: Successful paracentesis under ultrasound guidance.
== END 2020-09-27 19:02 | disposition hospice, home (50) | DRG 432 ==
LOC: EC 00:06 → 5NMEDONC 03:27
PROVIDERS: ADMIT Internal Medicine Geriatric Medicine; ATTEND Internal Medicine Geriatric Medicine
PROC: 0W9G3ZZ Drainage of Peritoneal Cavity, Percutaneous Approach (ICD-10-PCS; principal; 2020-09-20)
PROC: 0W9G3ZZ Drainage of Peritoneal Cavity, Percutaneous Approach (ICD-10-PCS; 2020-09-21)
PROC: 0W9G3ZZ Drainage of Peritoneal Cavity, Percutaneous Approach (ICD-10-PCS; 2020-09-25)
DX: K70.31 Alcoholic cirrhosis of liver with ascites (principal); K85.20 Alcohol induced acute pancreatitis without necrosis or infection; K65.2 Spontaneous bacterial peritonitis; E43 Unspecified severe protein-calorie malnutrition; K86.0 Alcohol-induced chronic pancreatitis; F33.9 Major depressive disorder, recurrent, unspecified; K76.6 Portal hypertension; Z79.4 Long term (current) use of insulin; Z79.890 Hormone replacement therapy; F10.20 Alcohol dependence, uncomplicated; I27.20 Pulmonary hypertension, unspecified; K31.89 Other diseases of stomach and duodenum; D69.59 Other secondary thrombocytopenia; M48.00 Spinal stenosis, site unspecified; J45.909 Unspecified asthma, uncomplicated; E11.42 Type 2 diabetes mellitus with diabetic polyneuropathy; K72.10 Chronic hepatic failure without coma; F17.210 Nicotine dependence, cigarettes, uncomplicated; K63.89 Other specified diseases of intestine; E11.649 Type 2 diabetes mellitus with hypoglycemia without coma; G62.1 Alcoholic polyneuropathy; Z51.5 Encounter for palliative care; I95.9 Hypotension, unspecified; E03.9 Hypothyroidism, unspecified; Z68.23 Body mass index [BMI] 23.0-23.9, adult
CPT/HCPCS: 36415; 49083; 74176; 76705; 80048; 80053; 80320; 82140; 82150; 82550; 82565; 82947; 83036; 83690; 83735; 84100; 85025; 85027; 85049; 85610; 85730; 86850; 86900; 86901; 87070; 87075; 87205; 89050; 93005; 94640; 94760; 96361; 96374; 96375; 96376; 99285

== ENCOUNTER 2020-10-01 11:33 | Day surgery (SDC) | payer MEDICARE ==
[2020-10-01] MEDS ORDERED: ALBUMIN HUMAN 25% 50 ML in EMPTY BAG 1 BAG IVPB SCH (12:15)
[2020-10-01 12:48] VITALS: PULSE 100; RESP 20; TEMP 98.4
[2020-10-01 13:02] LABS: Mean Platelet Volume 11.4
[2020-10-01 13:05] LABS: Platelet Count 40 k/uL (150-450)
[2020-10-01 13:25] VITALS: BP 80/49
[2020-10-01 13:26] LABS: INR 1.8 (<1.2); Prothrombin Time 17.6 sec (9.0-12.0)
--- NOTE | 2020-10-01 13:44 | US ---
Ultrasound-guided paracentesis. DATE OF EXAM: 10/01/2020 CLINICAL HISTORY: Ascites Patient presented to the radiology department with hypertension. Was recommended patient: To the [facility] room. Procedure therefore could not be performed. IMPRESSION: Deferred procedure due to hypotension.
== END 2020-10-01 13:33 | disposition home or self-care (01) ==
LOC: RADPROMAIN 11:33
PROVIDERS: ATTEND Internal Medicine Gastroenterology
DX: R18.8 Other ascites (principal); I95.9 Hypotension, unspecified; I10 Essential (primary) hypertension; Z53.09 Procedure and treatment not carried out because of other contraindication
CPT/HCPCS: 36415; 76705; 82565; 82947; 85049; 85610